=== PATIENT | male | born 1945 | race Caucasian/White ===

== ENCOUNTER 2017-03-02 16:48 | Emergency (ER) | payer OTHER, MEDICARE ==
[~2017-03-02] VITALS: Ht 170.2 cm; Wt 101.5 kg
[~2017-03-02 16:48] MED LIST: ALBU0.08 INH; BUDE1SUS6 PO; CHOL1CAP57 PO; FERR325T5 PO; LORA-741 PO; MULTTAB58 PO; OMEP20TA PO; PREG1CAP28 PO
[2017-03-02 16:54] VITALS: TEMP 36.8; Ht 170.2 cm; Wt 101.5 kg
[2017-03-02] MEDS ORDERED: PREG100C PO (17:28)
[2017-03-02] MEDS ORDERED: PRD/1 PO (17:28)
[2017-03-02] MEDS ORDERED: AZIT500T PO (17:28)
--- NOTE | 2017-03-02 17:41 | EMERGENCY ROOM VISIT NOTE ---
History First contact with patient: 17:03 Chief Complaint: FOOT PAIN Stated Complaint: INFECTED FOOT History of Present Illness The patient is a 72 year old male who presents to the Emergency Room with complaints of right foot pain. The patient has a cyst/ callus like growth over his right foot that was cut on Monday on a fence. The patient later that day noticed some redness and swelling in the foot that has now progressed. He is having 10/10 pain with movement or touching the foot. He is currently being treated for bronchitis by his family doctor and was unable to see him for the infection until Monday. He says the redness has now moved to his ankle and he can barely walk without pain. He denies any fever, chills, nausea, or vomiting. He also has a history of neuropathy in his lower extremities. Review of Systems See HPI for pertinent positives and negatives. A total of ten systems were reviewed and were otherwise negative. 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 Surgical Problems: (1) History of lumbar surgery (2) History of right shoulder replacement (3) History of temporomandibular joint syndrome (4) Hx of transurethral resection of prostate Family History Cancer Heart disease Kidney disease Social History Smoking Status: Current Every Day Smoker Alcohol Use: none Occupation Status: retired Current/Historical Medications Scheduled Arformoterol Tartrate (Brovana), 15 MCG NEB BID Aspirin (Aspir-81), 81 MG PO QAM Budesonide (Inhalation) (Pulmicort Respules 0.5MG/2ML), 2 ML NEB BID Cephalexin (Keflex), 1 CAP PO BID Cholecalciferol (Vitamin D3), 2,000 INTER.UNIT PO DAILY Cyanocobalamin (Cyanocobalamin), 1,000 MCG IM MONTHLY Docusate Sodium (Stool Softener), 100 MG PO BID Ferrous Sulfate (Ferrous Sulfate), 325 MG PO QPM Home O2 Therapy (Oxygen), 3 LITERS NA HS Lisinopril (Lisinopril), 10 MG PO QAM Multiple Vitamins W/ Minerals (Centrum Silver Adult 50+), 1 TAB PO DAILY Omeprazole (Prilosec), 20 MG PO BID Oxybutynin Chloride (Oxybutynin Chloride), 5 MG PO BID Pregabalin (Lyrica), 100 MG PO BID Scheduled PRN Albuterol Sulf (Proventil 0.083% 2.5MG/3ML), 2.5 MG NEB Q4H PRN for SOB/Wheezing Azithromycin (Zithromax), 250 MG PO UD PRN for COPD/Asthma Rescue Kit Ipratropium-Albuterol (Combivent Respimat), 1 PUFF INH QID PRN for Cough/ Wheezing Lorazepam (Lorazepam), 0.5 MG PO TID PRN for Anxiety Prednisone (Deltasone), 20 MG PO UD PRN for COPD/Asthma Rescue Kit Tramadol HCl (Tramadol HCl), 25 MG PO Q6H PRN for Pain Triamcinolone Acet (Aristocort 0.1%), 1 APPLN TOP UD PRN for Itching Valacyclovir Hcl (Valtrex), 500 MG PO BID PRN for Outbreaks Allergies Coded Allergies: Benzocaine (Verified Allergy, Severe, SLOUGHING OF SKIN, 03/03/17) Clindamycin (Verified Allergy, Intermediate, RASH, 03/03/17) Clobetasol (Verified Allergy, Unknown, ITCHING, 03/03/17) Doxycycline (Verified Allergy, Unknown, RASH, 03/03/17) Penicillins (Verified Allergy, Unknown, HIVES, 03/03/17) Phenylethylamine (Verified Allergy, Unknown, ITCHING, 03/03/17) Tea Tree Oil (Verified Allergy, Unknown, ITCHING, 03/03/17) Uncoded Allergies: CLEOCIN (Allergy, Unknown, SHUT KIDNEY DOWN, 05/05/15) Physical Exam Vital Signs Date Time Temp Pulse Resp B/P (MAP) Pulse Ox O2 Delivery O2 Flow Rate FiO2 03/02/17 19:21 71 16 147/92 95 03/02/17 18:39 70 20 134/89 92 03/02/17 16:54 36.8 89 18 126/84 94 Room Air Physical Exam GENERAL: Awake, alert, well-appearing, in no distress HENT: Normocephalic, atraumatic. RESPIRATORY: Clear to auscultation. CARDIAC: Regular rate, normal rhythm. Extremities warm and well perfused. Pulses equal. ABDOMEN: Soft, non-distended. No tenderness to palpation. No rebound or guarding. No masses. RECTAL: Deferred. LOWER EXTREMITIES: Calves are equal size bilaterally and non-tender. No edema. No discoloration. NEURO: Normal sensorium. No sensory or motor deficits noted. SKIN: Right foot avulsion on callus on the dorsum of the foot. Erythema along the dorsum and lateral aspect of the foot extending towards the ankle. Severe tenderness with minimal dorsiflexion, plantarflexion, eversion, or inversion. Swelling of the foot and the ankle in comparison to the right foot. Edematous but no pitting at this time. Warm to touch. Medical Decision & Procedures Laboratory Results 03/02/17 18:05 Red Blood Count 4.09, Mean Corpuscular Volume 99.0, Mean Corpuscular Hemoglobin 32.5, Mean Corpuscular Hemoglobin Concent 32.8, Mean Platelet Volume 9.9, Neutrophils (%) (Auto) 72.4, Lymphocytes (%) (Auto) 14.0, Monocytes (%) (Auto) 12.3, Eosinophils (%) (Auto) 0.6, Basophils (%) (Auto) 0.2, Neutrophils # (Auto ) 6.42, Lymphocytes # (Auto) 1.24, Monocytes # (Auto) 1.09, Eosinophils # (Auto ) 0.05, Basophils # (Auto) 0.02 03/02/17 18:05 Test 03/02/17 18:05 White Blood Count 8.86 K/uL (4.8-10.8) Red Blood Count 4.09 M/uL (4.7-6.1) Hemoglobin 13.3 g/dL (14.0-18.0) Hematocrit 40.5 % (42-52) Mean Corpuscular Volume 99.0 fL (80-100) Mean Corpuscular Hemoglobin 32.5 pg (25-34) Mean Corpuscular Hemoglobin Concent 32.8 g/dl (32-36) Platelet Count 185 K/uL (130-400) Mean Platelet Volume 9.9 fL (7.4-10.4) Neutrophils (%) (Auto) 72.4 % Lymphocytes (%) (Auto) 14.0 % Monocytes (%) (Auto) 12.3 % Eosinophils (%) (Auto) 0.6 % Basophils (%) (Auto) 0.2 % Neutrophils # (Auto) 6.42 K/uL (1.4-6.5) Lymphocytes # (Auto) 1.24 K/uL (1.2-3.4) Monocytes # (Auto) 1.09 K/uL (0.11-0.59) Eosinophils # (Auto) 0.05 K/uL (0-0.5) Basophils # (Auto) 0.02 K/uL (0-0.2) RDW Standard Deviation 49.3 fL (36.4-46.3) RDW Coefficient of Variation 13.7 % (11.5-14.5) Immature Granulocyte % (Auto) 0.5 % Immature Granulocyte # (Auto) 0.04 K/uL (0.00-0.02) Anion Gap 8.0 mmol/L (3-11) Est Creatinine Clear Calc Drug Dose 29.2 ml/min Estimated GFR () 27.3 Estimated GFR (Non- 23.6 BUN/Creatinine Ratio 8.7 (10-20) Calcium Level 8.9 mg/dl (8.5-10.1) Medications Administered Medications (Trade) Dose Ordered Sig/Chata Route Start Time Stop Time Status Last Admin Dose Admin Cefazolin Sodium 2000 mg/Dextrose 60 ml @ 120 mls/hr 1830 IV 03/02/17 18:30 03/02/17 19:38 DC 03/02/17 18:36 120 MLS/HR Cephalexin Monohydrate (Keflex 500MG Home Pack) 1 homepack NOW ONCE PO 03/02/17 19:15 03/02/17 19:16 DC 03/02/17 19:06 1 HOMEPACK Medical Decision Patient is a 72 year old male that presents with cellulitis of the foot Differential Diagnosis is cellulitis, abscess, osteomyelitis, MRSA, fracture, and other etiologies Patient was given IV Ancef in the emergency department and discharged home with Keflex and instructions to follow up with his family doctor Impression Primary Impression: Cellulitis Departure Information Dispostion Home / Self-Care Referrals Jacob Jones MD (PCP) Patient Instructions [facility] Problem Qualifiers Primary Impression: Cellulitis Site of cellulitis of extremity: lower extremity Laterality: unspecified laterality
[2017-03-02 18:15] LABS: BASO % 0.2 %; BASO ABS # 0.02 K/uL (0-0.2); COMPLETE YES; EOS % 0.6 %; HEMATOCRIT 40.5 % (42-52); IG% 0.5 %; LYMPH ABS # 1.24 K/uL (1.2-3.4); MEAN CORPUSCULAR HEMOGLOBIN 32.5 pg (25-34); MEAN CORPUSCULAR HGB CONC 32.8 g/dl (32-36); MEAN PLATELET VOLUME 9.9 fL (7.4-10.4); MONO % 12.3 %; NEUT % 72.4 %; PLATELET COUNT 185 K/uL (130-400); RED BLOOD COUNT 4.09 M/uL (4.7-6.1); WHITE BLOOD COUNT 8.86 K/uL (4.8-10.8)
[2017-03-02] MEDS ORDERED: CEFAZOLIN SOD 2000 MG in DEXTROSE 5% 50ML IV SCH (18:30)
[2017-03-02 18:33] LABS: BUN/CREATININE RATIO 8.7 (10-20); CALCIUM 8.9 mg/dl (8.5-10.1); CREATININE 2.6 mg/dl (0.60-1.40); POTASSIUM 4.3 mmol/L (3.5-5.1)
[2017-03-02] MEDS ORDERED: CEPH-571 PO (18:33)
--- NOTE | 2017-03-02 18:33 | EMERGENCY ROOM VISIT NOTE ---
History Report prepared by Alice: Arelis Alatorre Under the Supervision of: Dr. Dilshad Main D.O. First contact with patient: 17:03 Chief Complaint: FOOT PAIN Stated Complaint: INFECTED FOOT History of Present Illness The patient is a 72 year old male who presents to the Emergency Room with complaints of constant right foot pain beginning 2 days ago. The patient states that he had a foot callus that became infected a few weeks ago. He reports that he was put on antibiotics but after it continued to worsen he had a follow up MRI and was told that it was a cyst. He notes that yesterday he cut his right foot on a wooden fence and tore his skin open in the same area that was affected before. The patient complains of redness and swelling of the foot and foot hotness. He denies any fever and chills. He notes that he Azithromycin for bronchitis that he started taking yesterday and his PCP told him to come in as the Azithromycin would not cover him for a foot infection. He rates his pain as a 10/10 in severity. Source of History: patient Onset: 2 days ago Position: foot (right) Symptom Intensity: 10/10 Quality: other (swelling) Timing: constant Associated Symptoms: No fevers, No chills Note: He complains of redness and swelling to the foot and ankle. Review of Systems See HPI for pertinent positives & negatives. A total of 10 systems reviewed and were otherwise negative. 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 Surgical Problems: (1) History of lumbar surgery (2) History of right shoulder replacement (3) History of temporomandibular joint syndrome (4) Hx of transurethral resection of prostate Family History Cancer Heart disease Kidney disease Social History Smoking Status: Current Every Day Smoker Alcohol Use: none Occupation Status: retired Current/Historical Medications Scheduled Arformoterol Tartrate (Brovana), 15 MCG IN BID Aspirin (Aspir-81), 81 MG PO QAM Azithromycin (Zithromax), Unknown Dose PO DIRECTED Budesonide (Inhalation) (Budesonide), 1 MG PO BID Cephalexin (Keflex), 1 CAP PO QID Cholecalciferol (Vitamin D3), 1,000 UNIT PO QPM Docusate Sodium (Stool Softener), 50 TAB PO BID Ferrous Sulfate (Ferrous Sulfate), 65 MG PO QPM Lisinopril (Lisinopril), 10 MG PO QAM Multiple Vitamin (Multivitamin), 1 TAB PO QPM Omeprazole (Omeprazole), 1 TAB PO BID Oxybutynin Chloride (Oxybutynin Chloride), 5 MG PO BID Oxygen (Oxygen), 3 LITERS NA HS Prednisone (Prednisone), Unknown Dose PO DIRECTED Pregabalin (Lyrica), 100 MG PO BID Scheduled PRN Ipratropium-Albuterol (Combivent Respimat), 1-3 PUFFS INH BID PRN for Wheezing Lorazepam (Ativan), 0.5 MG PO TID PRN for Anxiety Triamcinolone Acet (Aristocort 0.1%), 1 APPLN TOP UD PRN for Itching Valacyclovir Hcl (Valtrex), 500 MG PO BID PRN for Itching Allergies Coded Allergies: Benzocaine (Verified Allergy, Severe, SLOUGHING OF SKIN, 09/08/16) Clindamycin (Verified Allergy, Intermediate, RASH, 09/08/16) Clobetasol (Verified Allergy, Unknown, ITCHING, 09/08/16) Doxycycline (Verified Allergy, Unknown, RASH, 09/08/16) Penicillins (Verified Allergy, Unknown, HIVES, 09/08/16) Phenylethylamine (Verified Allergy, Unknown, ITCHING, 09/08/16) Tea Tree Oil (Verified Allergy, Unknown, ITCHING, 09/08/16) Uncoded Allergies: CLEOCIN (Allergy, Unknown, SHUT KIDNEY DOWN, 05/05/15) Physical Exam Vital Signs Date Time Temp Pulse Resp B/P (MAP) Pulse Ox O2 Delivery O2 Flow Rate FiO2 03/02/17 16:54 36.8 89 18 126/84 94 Room Air Physical Exam CONSTITUTIONAL/VITAL SIGNS: Reviewed / noted above. GENERAL: Non-toxic in appearance. INTEGUMENTARY: Warm, dry, and [place]. HEAD: Normocephalic. EYES: without scleral icterus or trauma. ENT/OROPHARYNX: clear and moist. LYMPHADENOPATHY/NECK: Is supple without lymphadenopathy or meningismus. RESPIRATORY: Lungs clear and equal. CARDIOVASCULAR: Regular rate and rhythm. GI/ABDOMEN: Soft and nontender. No organomegaly or pulsatile mass. No rebound or guarding. Normal bowel sounds. EXTREMITIES: There is scattered erythema in the right foot and ankle primarily on the dorsal, medial, and lateral aspects of the foot. No lymphangitis or red streaks proximal. BACK: No CVA tenderness. NEUROLOGICAL: Intact without focal deficits. PSYCHIATRIC: normal affect. MUSCULOSKELETAL: Normally developed with good muscle tone. Medical Decision & Procedures Laboratory Results 03/02/17 18:05 Red Blood Count 4.09, Mean Corpuscular Volume 99.0, Mean Corpuscular Hemoglobin 32.5, Mean Corpuscular Hemoglobin Concent 32.8, Mean Platelet Volume 9.9, Neutrophils (%) (Auto) 72.4, Lymphocytes (%) (Auto) 14.0, Monocytes (%) (Auto) 12.3, Eosinophils (%) (Auto) 0.6, Basophils (%) (Auto) 0.2, Neutrophils # (Auto ) 6.42, Lymphocytes # (Auto) 1.24, Monocytes # (Auto) 1.09, Eosinophils # (Auto ) 0.05, Basophils # (Auto) 0.02 03/02/17 18:05 Test 03/02/17 18:05 White Blood Count 8.86 K/uL (4.8-10.8) Red Blood Count 4.09 M/uL (4.7-6.1) Hemoglobin 13.3 g/dL (14.0-18.0) Hematocrit 40.5 % (42-52) Mean Corpuscular Volume 99.0 fL (80-100) Mean Corpuscular Hemoglobin 32.5 pg (25-34) Mean Corpuscular Hemoglobin Concent 32.8 g/dl (32-36) Platelet Count 185 K/uL (130-400) Mean Platelet Volume 9.9 fL (7.4-10.4) Neutrophils (%) (Auto) 72.4 % Lymphocytes (%) (Auto) 14.0 % Monocytes (%) (Auto) 12.3 % Eosinophils (%) (Auto) 0.6 % Basophils (%) (Auto) 0.2 % Neutrophils # (Auto) 6.42 K/uL (1.4-6.5) Lymphocytes # (Auto) 1.24 K/uL (1.2-3.4) Monocytes # (Auto) 1.09 K/uL (0.11-0.59) Eosinophils # (Auto) 0.05 K/uL (0-0.5) Basophils # (Auto) 0.02 K/uL (0-0.2) RDW Standard Deviation 49.3 fL (36.4-46.3) RDW Coefficient of Variation 13.7 % (11.5-14.5) Immature Granulocyte % (Auto) 0.5 % Immature Granulocyte # (Auto) 0.04 K/uL (0.00-0.02) Anion Gap 8.0 mmol/L (3-11) Est Creatinine Clear Calc Drug Dose 29.2 ml/min Estimated GFR () 27.3 Estimated GFR (Non- 23.6 BUN/Creatinine Ratio 8.7 (10-20) Calcium Level 8.9 mg/dl (8.5-10.1) Laboratory results as stated above per my review. ED Course 170: Previous medical records were reviewed. The patient was evaluated in room C7. A complete history and physical examination was performed..ex 1830: Cefazolin Sodium 2000mg IV. 1836: On reevaluation, the patient is doing well. I discussed the results and findings with the patient. He verbalized agreement of the treatment plan. The patient was discharged home. Medical Decision Differential diagnosis: Etiologies such as cellulitis, abscess, MRSA infection, DVT, necrotizing fasciitis, dermatitis, drug eruption, as well as others were entertained. This is a 72-year-old male who presents to the ED with a chief complaint of right foot infection. The patient states that he scraped the dorsal aspect of his foot on a wooden fence a couple of days ago. He has developed redness and discomfort as well as some swelling since that time. The patient scraped the foot overlying a cyst that he has had problems within the past. His exam reveals normal vital signs. He is afebrile. There is some diffuse erythema mainly to the dorsal lateral as well as medial aspect of the right foot. This is somewhat scattered and does not completely encompassing the foot. This has been outlined. There is no red streaks up the leg. He has no additional symptoms and is nontoxic in appearance. His CBC was unremarkable. Creatinine is elevated but at baseline. He was treated with IV Ancef. He'll be discharged on Keflex. Close follow-up with the PCP was recommended. He will return for any worsening or new concerns. Impression Primary Impression: Cellulitis of foot, right Scribe Attestation The scribe's documentation has been prepared under my direction and personally reviewed by me in its entirety. I confirm that the note above accurately reflects all work, treatment, procedures, and medical decision making performed by me. Departure Information Dispostion Home / Self-Care Prescriptions Cephalexin (KEFLEX) 500 Mg Cap 1 CAP PO QID for 10 Days, #40 CAP Prov: Dilshad Main D.O. 03/02/17 Referrals Jacob Jones MD (PCP) Forms HOME CARE DOCUMENTATION FORM, IMPORTANT VISIT INFORMATION Patient Instructions Cellulitis Dc, My [facility] Additional Instructions Keflex as prescribed. Follow-up with your doctor for recheck in one to 5 days. Return for fevers, significant increase in redness, red streak traveling up the leg, vomiting or other concerns.
[2017-03-02] MEDS ORDERED: CEPHALEXIN 500MG HOME PACK 1 EA BTL PO ONE (19:15)
[2017-03-02 19:21] VITALS: BP 147/92; PULSE 71; O2SAT 95
[2017-03-03] MEDS ORDERED: CEFAZOLIN IV 2,000 MG/60 ML D5W IV ONE ×2 (06:00→18:30)
[2017-03-03] MEDS ORDERED: CYAN10005 PO (21:50)
[2017-03-06] MEDS ORDERED: CEPH-571 PO ×2 (13:20→13:35)
[2017-03-06] MEDS ORDERED: ULT50X PO (13:20)
[2017-05-31] MEDS ORDERED: TRMCR130WC TOP (10:43)
[2017-05-31] MEDS ORDERED: IPRA1AER2 INH (10:53)
[2017-05-31] MEDS ORDERED: ARFO15NE NEB (10:53)
[2017-05-31] MEDS ORDERED: ASPI-232 PO (10:53)
[2017-05-31] MEDS ORDERED: OXGN (14:56)
[2017-05-31] MEDS ORDERED: VALA1TAB2 PO (16:00)
[2017-05-31] MEDS ORDERED: DTR/5 PO (16:00)
[2017-05-31] MEDS ORDERED: MULT-506 PO (16:00)
[2017-05-31] MEDS ORDERED: PREG100C PO (16:00)
[2017-05-31] MEDS ORDERED: SENNTAB13 PO (16:02)
[2017-05-31] MEDS ORDERED: SKINCRE34 TOP (16:02)
[2017-05-31] MEDS ORDERED: HYDR25SU20 PR (16:02)
[2017-05-31] MEDS ORDERED: FERR325T5 PO (17:28)
[2017-06-12] MEDS ORDERED: PANT20TA2 PO (16:22)
[2017-06-15] MEDS ORDERED: NRV5 PO (11:25)
[2017-06-15] MEDS ORDERED: IMDSR60 PO (11:25)
[2017-06-15] MEDS ORDERED: AMLO2.5T PO (11:36)
[2017-06-25] MEDS ORDERED: ALLO300T2 PO (07:00)
[2017-06-25] MEDS ORDERED: DOCU100C PO (07:00)
[2017-06-25] MEDS ORDERED: ASPCH81X PO (07:03)
[2017-06-25] MEDS ORDERED: MICO12CR TOP (07:03)
[2017-06-26] MEDS ORDERED: AZIT-57 PO (13:25)
== END 2017-03-02 19:15 | disposition home or self-care (01) ==
LOC: C.EDB 16:49 → C.EDC 19:15
DX: L03.115 Cellulitis of right lower limb (principal); G57.93 Unspecified mononeuropathy of bilateral lower limbs; J44.9 Chronic obstructive pulmonary disease, unspecified; I12.9 Hypertensive chronic kidney disease with stage 1 through stage 4 chronic kidney disease, or unspecified chronic kidney disease; N18.3 Chronic kidney disease, stage 3 (moderate); R79.89 Other specified abnormal findings of blood chemistry; I25.10 Atherosclerotic heart disease of native coronary artery without angina pectoris; K57.30 Diverticulosis of large intestine without perforation or abscess without bleeding; K21.9 Gastro-esophageal reflux disease without esophagitis; B00.9 Herpesviral infection, unspecified; F17.200 Nicotine dependence, unspecified, uncomplicated; Z95.828 Presence of other vascular implants and grafts; Z96.649 Presence of unspecified artificial hip joint; Z96.611 Presence of right artificial shoulder joint; Z79.82 Long term (current) use of aspirin

== ENCOUNTER 2017-03-03 18:20 | Emergency (ER) | payer OTHER, MEDICARE ==
[~2017-03-03] VITALS: Ht 177.8 cm; Wt 100.0 kg
[~2017-03-03 18:20] MED LIST changes: -ALBU0.08 INH; +AZIT500T PO; +CEPH-571 PO; -FERR325T5 PO; +PRD/1 PO; +PREG100C PO; -PREG1CAP28 PO
[2017-03-03 18:22] VITALS: Ht 177.8 cm; Wt 100.0 kg
[2017-03-03] MEDS ORDERED: CEFTRIAXONE SOD INJ 1 GM ADDVIAL IV STA (18:53)
[2017-03-03] MEDS ORDERED: VANCOMYCIN INJ 2,000 MG in SODIUM CHLORIDE 0.9% 500ML 500 ML IV STA (18:53)
[2017-03-03] MEDS ORDERED: SODIUM CHLORIDE 0.9% 1000ML 1,000 ML IV STA (18:53)
[2017-03-03 19:56] LABS: BASO % 0.2 %; BASO ABS # 0.02 K/uL (0-0.2); COMPLETE YES; EOS % 0.5 %; HEMATOCRIT 39.4 % (42-52); IG% 0.4 %; LYMPH % 10.3 %; LYMPH ABS # 0.97 K/uL (1.2-3.4); MEAN CELL VOLUME 99.7 fL (80-100); MEAN CORPUSCULAR HEMOGLOBIN 34.2 pg (25-34); MEAN CORPUSCULAR HGB CONC 34.3 g/dl (32-36); MEAN PLATELET VOLUME 10.2 fL (7.4-10.4); MONO % 15.1 %; NEUT % 73.5 %; PLATELET COUNT 187 K/uL (130-400); RED BLOOD COUNT 3.95 M/uL (4.7-6.1); WHITE BLOOD COUNT 9.41 K/uL (4.8-10.8)
[2017-03-03 20:23] LABS: CALCIUM 8.6 mg/dl (8.5-10.1); CREATININE 2.6 mg/dl (0.60-1.40); POTASSIUM 4.4 mmol/L (3.5-5.1)
--- NOTE | 2017-03-03 20:25 | DIAGNOSTIC IMAGING REPORT ---
RIGHT FOOT 3 VIEWS CLINICAL HISTORY: Right foot swelling. Cellulitis. FINDINGS: 3 views of the right foot are obtained. No prior studies are available for comparison at the time of dictation. The skeletal structures are osteopenic. No fracture is seen. No bony erosion or periostitis is identified. Arthritic change with bony sclerosis and spurring is seen at the first metatarsophalangeal joint. The joint spaces of the foot are otherwise maintained. Degenerative spurring is seen along the dorsal aspect of the tarsal bones. Soft tissue edema is present throughout the foot and around the ankle. No subcutaneous gas or radiodense foreign body is seen. IMPRESSION: 1. Diffuse soft tissue edema is identified and consistent with the reported clinical history of cellulitis. 2. No acute bony abnormality is seen. 3. Osteopenia and mild arthritic change as above. Electronically signed by: Braden Rucker M.D. 03/03/2017 8:24 PM Dictated Date/Time: 03/03/2017 8:22 PM
[2017-03-03] MEDS ORDERED: CYAN10005 PO (21:50)
[2017-03-04 00:09] VITALS: BP 142/94; PULSE 70; TEMP 36.8; O2SAT 94
--- NOTE | 2017-03-04 00:45 | EMERGENCY ROOM VISIT NOTE ---
History Report prepared by Alice: Alva Berumen Under the Supervision of: Dr. Moody Zavaleta M.D. First contact with patient: 18:32 Chief Complaint: WOUND INFECTION Stated Complaint: INFECTED RT FOOT History of Present Illness The patient is a 72 year old male who presents to the Emergency Room with complaints of right foot pain starting yesterday and worsening today. The patient had a right foot callous. He hit his foot yesterday and cracked the callous. He was evaluated at the Emergency Room yesterday where he received IV antibiotics. He has been taking Keflex at home as prescribed without relief. His pain and symptoms worsened today. Today, he started having right lower extremity swelling and worsening erythema. He also started having blood, yellowish drainage from the callous. He has worsening pain with movement and palpation. He denies any history of diabetes. He has a history of neuropathy. He has also been taking Z-pack recently as prescribed by his PCP for lung issues. Pt denies LOC, headache, fevers, chills, diaphoresis, visual changes, neck pain , chest pain, breathing difficulties, nausea, vomiting, abdominal pain, back pain, melena, hematochezia, urinary symptoms, numbness, weakness, lymphadenopathy, rash, or other complaints. Source of History: patient Onset: yesterday Position: foot (right) Quality: other (callous with drainage) Timing: worsening Modifying Factors (Worsening): movement, other (palpation) Review of Systems See HPI for pertinent positives and negatives. A total of ten systems were reviewed and were otherwise negative. 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 Surgical Problems: (1) History of lumbar surgery (2) History of right shoulder replacement (3) History of temporomandibular joint syndrome (4) Hx of transurethral resection of prostate Family History Cancer Heart disease Kidney disease Social History Smoking Status: Current Every Day Smoker Alcohol Use: none Marital Status: Occupation Status: retired Current/Historical Medications Scheduled Albuterol Sulf (Proventil 0.083% 2.5MG/3ML), 2.5 MG INH DAILY Arformoterol Tartrate (Brovana), 15 MCG IN BID Aspirin (Aspir-81), 81 MG PO QAM Azithromycin (Zithromax), Unknown Dose PO DIRECTED Budesonide (Inhalation) (Budesonide), 1 MG PO BID Cephalexin (Keflex), 1 CAP PO QID Cholecalciferol (Vitamin D3), 1 CAP PO DAILY Cyanocobalamin (Cyanocobalamin), 3 ML INJ MONTHLY Docusate Sodium (Stool Softener), 1 TAB PO BID Ferrous Sulfate (Ferrous Sulfate), 65 MG PO QPM Lisinopril (Lisinopril), 10 MG PO QAM Multiple Vitamin (Multivitamin), 1 TAB PO QPM Omeprazole (Omeprazole), 1 TAB PO BID Oxybutynin Chloride (Oxybutynin Chloride), 5 MG PO BID Oxygen (Oxygen), 3 LITERS NA HS Prednisone (Prednisone), Unknown Dose PO DIRECTED Pregabalin (Lyrica), 100 MG PO BID Scheduled PRN Ipratropium-Albuterol (Combivent Respimat), 1-3 PUFFS INH BID PRN for Wheezing Lorazepam (Ativan), 0.5 MG PO TID PRN for Anxiety Triamcinolone Acet (Aristocort 0.1%), 1 APPLN TOP UD PRN for Itching Valacyclovir Hcl (Valtrex), 500 MG PO BID PRN for Itching Allergies Coded Allergies: Benzocaine (Verified Allergy, Severe, SLOUGHING OF SKIN, 03/03/17) Clindamycin (Verified Allergy, Intermediate, RASH, 03/03/17) Clobetasol (Verified Allergy, Unknown, ITCHING, 03/03/17) Doxycycline (Verified Allergy, Unknown, RASH, 03/03/17) Penicillins (Verified Allergy, Unknown, HIVES, 03/03/17) Phenylethylamine (Verified Allergy, Unknown, ITCHING, 03/03/17) Tea Tree Oil (Verified Allergy, Unknown, ITCHING, 03/03/17) Uncoded Allergies: CLEOCIN (Allergy, Unknown, SHUT KIDNEY DOWN, 05/05/15) Physical Exam Vital Signs Date Time Temp Pulse Resp B/P (MAP) Pulse Ox O2 Delivery O2 Flow Rate FiO2 03/04/17 00:09 36.8 70 142/94 94 03/03/17 22:17 72 134/89 94 Room Air 03/03/17 20:16 37.0 77 126/76 95 Room Air 03/03/17 18:22 37.1 96 22 117/76 91 Room Air Physical Exam GENERAL: Awake, alert, well-appearing, in no distress HENT: Normocephalic, atraumatic. Oropharynx unremarkable. EYES: Normal conjunctiva. Sclera non-icteric. NECK: Supple. No nuchal rigidity. FROM. No JVD. RESPIRATORY: Clear to auscultation. CARDIAC: Regular rate, normal rhythm. Extremities warm and well perfused. Pulses equal. ABDOMEN: Soft, non-distended. No tenderness to palpation. No rebound or guarding. No masses. RECTAL: Deferred. MUSCULOSKELETAL: Chest examination reveals no tenderness. The back is symmetrical on inspection without obvious abnormality. There is no CVA tenderness to palpation. No joint edema. LOWER EXTREMITIES: Calves are equal size bilaterally and non-tender. No edema. No discoloration. Callous on the right foot at the dorsal aspect, with a small superficial wound present, no drainage. Warmth, erythema, and significant tenderness of the foot. NEURO: Normal sensorium. No sensory or motor deficits noted. SKIN: No rash or jaundice noted. Medical Decision & Procedures ER Provider Diagnostic Interpretation: X-ray: Per my interpretation, radiologist review. RIGHT FOOT 3 VIEWS CLINICAL HISTORY: Right foot swelling. Cellulitis. FINDINGS: 3 views of the right foot are obtained. No prior studies are available for comparison at the time of dictation. The skeletal structures are osteopenic. No fracture is seen. No bony erosion or periostitis is identified. Arthritic change with bony sclerosis and spurring is seen at the first metatarsophalangeal joint. The joint spaces of the foot are otherwise maintained. Degenerative spurring is seen along the dorsal aspect of the tarsal bones. Soft tissue edema is present throughout the foot and around the ankle. No subcutaneous gas or radiodense foreign body is seen. IMPRESSION: 1. Diffuse soft tissue edema is identified and consistent with the reported clinical history of cellulitis. 2. No acute bony abnormality is seen. 3. Osteopenia and mild arthritic change as above. Electronically signed by: Braden Rucker M.D. 03/03/2017 8:24 PM Dictated Date/Time: 03/03/2017 8:22 PM Laboratory Results 03/03/17 19:25 Red Blood Count 3.95, Mean Corpuscular Volume 99.7, Mean Corpuscular Hemoglobin 34.2, Mean Corpuscular Hemoglobin Concent 34.3, Mean Platelet Volume 10.2, Neutrophils (%) (Auto) 73.5, Lymphocytes (%) (Auto) 10.3, Monocytes (%) (Auto) 15.1, Eosinophils (%) (Auto) 0.5, Basophils (%) (Auto) 0.2, Neutrophils # (Auto ) 6.91, Lymphocytes # (Auto) 0.97, Monocytes # (Auto) 1.42, Eosinophils # (Auto ) 0.05, Basophils # (Auto) 0.02 03/03/17 19:25 Test 03/03/17 19:25 03/03/17 19:45 White Blood Count 9.41 K/uL (4.8-10.8) Red Blood Count 3.95 M/uL (4.7-6.1) Hemoglobin 13.5 g/dL (14.0-18.0) Hematocrit 39.4 % (42-52) Mean Corpuscular Volume 99.7 fL (80-100) Mean Corpuscular Hemoglobin 34.2 pg (25-34) Mean Corpuscular Hemoglobin Concent 34.3 g/dl (32-36) Platelet Count 187 K/uL (130-400) Mean Platelet Volume 10.2 fL (7.4-10.4) Neutrophils (%) (Auto) 73.5 % Lymphocytes (%) (Auto) 10.3 % Monocytes (%) (Auto) 15.1 % Eosinophils (%) (Auto) 0.5 % Basophils (%) (Auto) 0.2 % Neutrophils # (Auto) 6.91 K/uL (1.4-6.5) Lymphocytes # (Auto) 0.97 K/uL (1.2-3.4) Monocytes # (Auto) 1.42 K/uL (0.11-0.59) Eosinophils # (Auto) 0.05 K/uL (0-0.5) Basophils # (Auto) 0.02 K/uL (0-0.2) RDW Standard Deviation 50.2 fL (36.4-46.3) RDW Coefficient of Variation 13.7 % (11.5-14.5) Immature Granulocyte % (Auto) 0.4 % Immature Granulocyte # (Auto) 0.04 K/uL (0.00-0.02) Anion Gap 8.0 mmol/L (3-11) Est Creatinine Clear Calc Drug Dose 30.4 ml/min Estimated GFR () 27.3 Estimated GFR (Non- 23.6 BUN/Creatinine Ratio 10.0 (10-20) Calcium Level 8.6 mg/dl (8.5-10.1) Bedside Lactic Acid Venous 0.98 mmol/L (0.90-1.70) Laboratory results reviewed by me Medications Administered Medications (Trade) Dose Ordered Sig/Chata Route Start Time Stop Time Status Last Admin Dose Admin Sodium Chloride 1,000 ml @ 200 mls/hr Q5H STAT IV 03/03/17 18:53 03/03/17 23:52 DC 03/03/17 19:52 200 MLS/HR Vancomycin HCl 2000 mg/Sodium Chloride 540 ml @ 200 mls/hr ONE STAT IV 03/03/17 18:53 03/03/17 21:34 DC 03/03/17 19:52 200 MLS/HR Ceftriaxone Sodium (Rocephin Inj) 1 gm NOW STAT IV 03/03/17 18:53 03/03/17 18:58 DC 03/03/17 20:00 1 GM ED Course 1832: The patient was evaluated in room B03B. A complete history and physical exam was performed. Blood pressure screening: Patient was found to have normal blood pressure on screening and does not require follow-up. Medication Reconciliation: I attest that I have personally reviewed the patient' s current medication list 1853:Rocephin Inj 1 gm IV, Vancomycin HCl 2000 mg/Sodium Chloride 540 ml @ 200 mls/hr IV, Sodium Chloride 1000 ml @ 200 mls/hr IV 2027: I reevaluated the patient who is doing well. 2199: I reevaluated the patient who is resting comfortably. []: I reevaluated the patient. Discussed results and discharge instructions: [] verbalized understanding and agreement. The patient is ready for discharge. Medical Decision Prior records reviewed and summarized as above. Triage Nursing notes reviewed and agree them. The patient's history was concerning for swelling and redness of the skin. Differential diagnosis: Etiologies such as cellulitis, DVT, necrotizing fasciitis, abscess, MRSA infection, dermatitis, drug eruption, as well as others were entertained.. Physical examination: The physical examination was consistent with cellulitis ER treatment provided: Patient declined analgesia IV hydration with normal saline IV vancomycin IV Rocephin On reassessment the patient felt better. The redness had decreased slightly. Edema was down elevation. Diagnostics interpreted by me: The labs revealed an unremarkable CBC. Mild anemia. Stable creatinine at 2.6. Imaging studies: Deferred This appears to be isolated cellulitis. The patient is doing well. He will continue his Keflex but will return to the Emergency Room in 24 hours for recheck. The patient preferred to try to go home and given the above dosing and improvement I believe this is reasonable. If he has any problems she will come back sooner. By the evaluation outlined above emergent etiologies such as abscess, necrotizing fasciitis, DVT, as well as others were deemed relatively unlikely. The patient was informed about the findings as listed above. All questions were answered and he was pleased with the treatment. Return instructions were outlined and the patient was discharged in stable condition. Outpatient prescription management: Continue Keflex Impression Primary Impression: Cellulitis of right foot Scribe Attestation The scribe's documentation has been prepared under my direction and personally reviewed by me in its entirety. I confirm that the note above accurately reflects all work, treatment, procedures, and medical decision making performed by me. Departure Information Dispostion Home / Self-Care Referrals Jacob Jones MD (PCP) Patient Instructions My [facility] Additional Instructions CELLULITIS INSTRUCTIONS: (As previously prescribed ) Cephalexin(Keflex) 500mg: Take one pill four times daily for 10 days for your skin infection. All antibiotics can cause diarrhea. If this occurs and you feel worse or it does not resolve in 1-2 days follow up with your doctor or return to the Emergency Department as this could be signs of serious underlying problems. Any medication can cause an allergic reaction, stop the pills immediately and return to the ER for rash, hives, breathing difficulties, or swelling. Acetaminophen(Tylenol) may be used for fever or pain. Use 1000mg every six hours as needed. Avoid using more than 4000mg in a 24 hour period. Warm compresses to the affected area 4 times daily for 15-20 minutes. Rest and drink plenty of fluids. Continue current medications. Follow up with the Emergency Room tomorrow at 7 PM for a recheck of the current condition. Return to the ER sooner for severe pain, persistent fevers, spreading redness, or any worsening of your condition.
[2017-03-04] MEDS ORDERED: LISI-461 PO (10:43)
[2017-03-04] MEDS ORDERED: VALA500T39 PO (10:53)
[2017-03-04] MEDS ORDERED: DOCU100T7 PO (14:56)
[2017-03-04] MEDS ORDERED: DTR5 PO (17:28)
[2017-03-04] MEDS ORDERED: LYR100 PO (21:42)
[2017-03-04] MEDS ORDERED: AZIT250T PO (21:42)
[2017-03-04] MEDS ORDERED: MULT-845 PO (21:53)
[2017-03-06] MEDS ORDERED: ULT50X PO (13:20)
[2017-03-06] MEDS ORDERED: CEPH-571 PO ×2 (13:20→13:35)
[2017-05-31] MEDS ORDERED: TRMCR130WC TOP (10:43)
[2017-05-31] MEDS ORDERED: ASPI-232 PO (10:53)
[2017-05-31] MEDS ORDERED: IPRA1AER2 INH (10:53)
[2017-05-31] MEDS ORDERED: ARFO15NE NEB (10:53)
[2017-05-31] MEDS ORDERED: OXGN (14:56)
[2017-05-31] MEDS ORDERED: MULT-506 PO (16:00)
[2017-05-31] MEDS ORDERED: PREG100C PO (16:00)
[2017-05-31] MEDS ORDERED: VALA1TAB2 PO (16:00)
[2017-05-31] MEDS ORDERED: DTR/5 PO (16:00)
[2017-05-31] MEDS ORDERED: SKINCRE34 TOP (16:02)
[2017-05-31] MEDS ORDERED: SENNTAB13 PO (16:02)
[2017-05-31] MEDS ORDERED: HYDR25SU20 PR (16:02)
[2017-05-31] MEDS ORDERED: FERR325T5 PO (17:28)
[2017-06-12] MEDS ORDERED: PANT20TA2 PO (16:22)
[2017-06-15] MEDS ORDERED: IMDSR60 PO (11:25)
[2017-06-15] MEDS ORDERED: NRV5 PO (11:25)
[2017-06-15] MEDS ORDERED: AMLO2.5T PO (11:36)
[2017-06-25] MEDS ORDERED: DOCU100C PO (07:00)
[2017-06-25] MEDS ORDERED: ALLO300T2 PO (07:00)
[2017-06-25] MEDS ORDERED: MICO12CR TOP (07:03)
[2017-06-25] MEDS ORDERED: ASPCH81X PO (07:03)
[2017-06-26] MEDS ORDERED: AZIT-57 PO (13:25)
== END 2017-03-04 00:10 | disposition home or self-care (01) ==
LOC: C.EDB 18:21
DX: L03.115 Cellulitis of right lower limb (principal); I10 Essential (primary) hypertension; N18.3 Chronic kidney disease, stage 3 (moderate); I25.10 Atherosclerotic heart disease of native coronary artery without angina pectoris; K57.90 Diverticulosis of intestine, part unspecified, without perforation or abscess without bleeding; K21.9 Gastro-esophageal reflux disease without esophagitis; Z82.49 Family history of ischemic heart disease and other diseases of the circulatory system; F17.200 Nicotine dependence, unspecified, uncomplicated; Z79.82 Long term (current) use of aspirin

== ENCOUNTER 2017-03-04 20:51 | Inpatient (IN) | payer OTHER, MEDICARE ==
[~2017-03-04] VITALS: Ht 170.2 cm; Wt 100.0 kg
[~2017-03-04 20:51] MED LIST changes: -CHOL1CAP57 PO; +DOCU100T7 PO; +DTR5 PO; +LISI-461 PO; +VALA500T39 PO
[2017-03-04] MEDS ORDERED: VANCOMYCIN INJ 2,000 MG in SODIUM CHLORIDE 0.9% 500ML 500 ML IV STA (21:10)
[2017-03-04] MEDS ORDERED: CEFTRIAXONE SOD INJ 1 GM ADDVIAL IV STA (21:10)
[2017-03-04 21:37] LABS: BASO % 0.1 %; BASO ABS # 0.01 K/uL (0-0.2); COMPLETE YES; EOS % 1.2 %; HEMATOCRIT 37.2 % (42-52); IG% 0.6 %; LYMPH % 18.2 %; LYMPH ABS # 1.26 K/uL (1.2-3.4); MEAN CELL VOLUME 100.3 fL (80-100); MEAN CORPUSCULAR HEMOGLOBIN 33.4 pg (25-34); MEAN CORPUSCULAR HGB CONC 33.3 g/dl (32-36); MONO % 13.4 %; NEUT % 66.5 %; PLATELET COUNT 189 K/uL (130-400); RED BLOOD COUNT 3.71 M/uL (4.7-6.1); WHITE BLOOD COUNT 6.93 K/uL (4.8-10.8)
[2017-03-04] MEDS ORDERED: AZIT250T PO (21:42)
[2017-03-04] MEDS ORDERED: LYR100 PO (21:42)
[2017-03-04 21:52] LABS: CREATININE 2.1 mg/dl (0.60-1.40); POTASSIUM 4.1 mmol/L (3.5-5.1)
[2017-03-04] MEDS ORDERED: MULT-845 PO (21:53)
[2017-03-04 22:13] LABS: CALCIUM 8.7 mg/dl (8.5-10.1)
[2017-03-04] MEDS ORDERED: ALBUT/IPRATROP 3MG/0.5MG NEB 3 ML VIAL INH PRN (22:30)
[2017-03-04] MEDS ORDERED: LORAZEPAM 0.5 MG TAB PO PRN (22:30)
[2017-03-04] MEDS ORDERED: HYDROmorphone INJ 0.5 MG/0.5 ML SYR IV PRN (22:30)
[2017-03-04] MEDS ORDERED: ACETAMINOPHEN 325 MG TAB PO PRN (22:30)
[2017-03-04] MEDS ORDERED: ONDANSETRON INJ 2 MG/ML 2 ML VIAL IV PRN (22:30)
[2017-03-04] MEDS ORDERED: SODIUM CHLORIDE 0.9% 1000ML 1,000 ML IV ONE (22:30)
[2017-03-04] MEDS ORDERED: TRAMADOL HCL 50 MG TAB PO PRN (22:30)
[2017-03-04 23:22] VITALS: BP 145/89; PULSE 66; TEMP 36.5; O2SAT 96
[2017-03-04 23:30] VITALS: Ht 170.2 cm; Wt 100.0 kg
[2017-03-04 23:37] LABS: INR 1.1 (0.9-1.1); PROTHROMBIN TIME (PATIENT) 11.5 SECONDS (9.0-12.0)
[2017-03-05] VITALS (7 sets, daily range): BP systolic 120–169; BP diastolic 77–92; PULSE 59–74; TEMP 36.6–36.8; O2SAT 94–96
--- NOTE | 2017-03-05 01:26 | EMERGENCY ROOM VISIT NOTE ---
History Report prepared by Alice: Lakeisha Larose Under the Supervision of: Dr. Moody Zavaleta M.D. First contact with patient: 20:57 Chief Complaint: WOUND RECHECK Stated Complaint: RECHECK FOR CELLULITIS OF RT FOOT Nursing Triage Summary: pt here for a recheck of cellulitis of the right foot, states it has not got any better History of Present Illness The patient is a 72 year old male who presents to the Emergency Room for a wound recheck. The patient had a right foot callus. He hit his foot 2 days ago and cracked the callus and developed worsening pain after this. The patient notes redness and swelling to his right foot and ankle. He has pain that is worse with movement and palpation. He rates his pain as a 5/10 in severity. Last night the patient was in the ED for evaluation of cellulitis, and he received Vancomycin and Rocephin. He states that his symptoms have improved slightly today, but he is still uncomfortable. The redness has gone down and it is less painful. He has been taking Keflex as prescribed. He is still feeling more fatigued than usual. Pt denies fevers, chills, nausea, vomiting, abdominal pain, diarrhea, and any other complaints. He does not have any new numbness or tingling in his foot. Source of History: patient Onset: 2 days ago Position: foot (right) Symptom Intensity: 5/10 Quality: other (redness/swelling) Timing: constant Modifying Factors (Relieving): other (antibiotics) Associated Symptoms: + fatigue Review of Systems See HPI for pertinent positives and negatives. A total of ten systems were reviewed and were otherwise negative. 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 Surgical Problems: (1) History of lumbar surgery (2) History of right shoulder replacement (3) History of temporomandibular joint syndrome (4) Hx of transurethral resection of prostate Family History Cancer Heart disease Kidney disease Social History Smoking Status: Former Smoker Alcohol Use: none Marital Status: Occupation Status: retired Current/Historical Medications Scheduled Arformoterol Tartrate (Brovana), 15 MCG NEB BID Aspirin (Aspir-81), 81 MG PO QAM Budesonide (Inhalation) (Pulmicort Respules 0.5MG/2ML), 2 ML NEB BID Cephalexin (Keflex), 1 CAP PO QID Cholecalciferol (Vitamin D3), 2,000 INTER.UNIT PO DAILY Cyanocobalamin (Cyanocobalamin), 1,000 MCG IM MONTHLY Docusate Sodium (Stool Softener), 100 MG PO BID Ferrous Sulfate (Ferrous Sulfate), 325 MG PO QPM Lisinopril (Lisinopril), 10 MG PO QAM Multiple Vitamins W/ Minerals (Centrum Silver Adult 50+), 1 TAB PO DAILY Omeprazole (Prilosec), 20 MG PO BID Oxybutynin Chloride (Oxybutynin Chloride), 5 MG PO BID Oxygen (Oxygen), 3 LITERS NA HS Pregabalin (Lyrica), 100 MG PO BID Scheduled PRN Albuterol Sulf (Proventil 0.083% 2.5MG/3ML), 2.5 MG NEB Q4H PRN for SOB/Wheezing Azithromycin (Zithromax), 250 MG PO UD PRN for COPD/Asthma Rescue Kit Ipratropium-Albuterol (Combivent Respimat), 1 PUFF INH QID PRN for Cough/ Wheezing Lorazepam (Lorazepam), 0.5 MG PO TID PRN for Anxiety Prednisone (Deltasone), 20 MG PO UD PRN for COPD/Asthma Rescue Kit Triamcinolone Acet (Aristocort 0.1%), 1 APPLN TOP UD PRN for Itching Valacyclovir Hcl (Valtrex), 500 MG PO BID PRN for Outbreaks Allergies Coded Allergies: Benzocaine (Verified Allergy, Severe, SLOUGHING OF SKIN, 03/03/17) Clindamycin (Verified Allergy, Intermediate, RASH, 03/03/17) Clobetasol (Verified Allergy, Unknown, ITCHING, 03/03/17) Doxycycline (Verified Allergy, Unknown, RASH, 03/03/17) Penicillins (Verified Allergy, Unknown, HIVES, 03/03/17) Phenylethylamine (Verified Allergy, Unknown, ITCHING, 03/03/17) Tea Tree Oil (Verified Allergy, Unknown, ITCHING, 03/03/17) Uncoded Allergies: CLEOCIN (Allergy, Unknown, SHUT KIDNEY DOWN, 05/05/15) Physical Exam Vital Signs Date Time Temp Pulse Resp B/P (MAP) Pulse Ox O2 Delivery O2 Flow Rate FiO2 03/04/17 20:55 36.7 75 18 112/76 95 Room Air Physical Exam GENERAL: Awake, alert, well-appearing, in no distress HENT: Normocephalic, atraumatic. Oropharynx unremarkable. EYES: Normal conjunctiva. Sclera non-icteric. NECK: Supple. No nuchal rigidity. FROM. No JVD. RESPIRATORY: Clear to auscultation. CARDIAC: Regular rate, normal rhythm. Extremities warm and well perfused. Pulses equal. ABDOMEN: Soft, non-distended. No tenderness to palpation. No rebound or guarding. No masses. MUSCULOSKELETAL: Chest examination reveals no tenderness. The back is symmetrical on inspection without obvious abnormality. There is no CVA tenderness to palpation. No joint edema. LOWER EXTREMITIES: Swelling, tenderness, warmth, and redness to the right foot. Calves are equal size bilaterally and non-tender. NEURO: Normal sensorium. No sensory or motor deficits noted. SKIN: No rash or jaundice noted. Medical Decision & Procedures Laboratory Results 03/04/17 21:30 Red Blood Count 3.71, Mean Corpuscular Volume 100.3, Mean Corpuscular Hemoglobin 33.4, Mean Corpuscular Hemoglobin Concent 33.3, Mean Platelet Volume 10.0, Neutrophils (%) (Auto) 66.5, Lymphocytes (%) (Auto) 18.2, Monocytes (%) ( Auto) 13.4, Eosinophils (%) (Auto) 1.2, Basophils (%) (Auto) 0.1, Neutrophils # (Auto) 4.61, Lymphocytes # (Auto) 1.26, Monocytes # (Auto) 0.93, Eosinophils # ( Auto) 0.08, Basophils # (Auto) 0.01 03/04/17 21:30 Test 03/04/17 21:30 White Blood Count 6.93 K/uL (4.8-10.8) Red Blood Count 3.71 M/uL (4.7-6.1) Hemoglobin 12.4 g/dL (14.0-18.0) Hematocrit 37.2 % (42-52) Mean Corpuscular Volume 100.3 fL (80-100) Mean Corpuscular Hemoglobin 33.4 pg (25-34) Mean Corpuscular Hemoglobin Concent 33.3 g/dl (32-36) Platelet Count 189 K/uL (130-400) Mean Platelet Volume 10.0 fL (7.4-10.4) Neutrophils (%) (Auto) 66.5 % Lymphocytes (%) (Auto) 18.2 % Monocytes (%) (Auto) 13.4 % Eosinophils (%) (Auto) 1.2 % Basophils (%) (Auto) 0.1 % Neutrophils # (Auto) 4.61 K/uL (1.4-6.5) Lymphocytes # (Auto) 1.26 K/uL (1.2-3.4) Monocytes # (Auto) 0.93 K/uL (0.11-0.59) Eosinophils # (Auto) 0.08 K/uL (0-0.5) Basophils # (Auto) 0.01 K/uL (0-0.2) RDW Standard Deviation 49.9 fL (36.4-46.3) RDW Coefficient of Variation 13.6 % (11.5-14.5) Immature Granulocyte % (Auto) 0.6 % Immature Granulocyte # (Auto) 0.04 K/uL (0.00-0.02) Prothrombin Time 11.5 SECONDS (9.0-12.0) Prothromb Time International Ratio 1.1 (0.9-1.1) Anion Gap 10.0 mmol/L (3-11) Est Creatinine Clear Calc Drug Dose 35.8 ml/min Estimated GFR () 35.4 Estimated GFR (Non- 30.5 BUN/Creatinine Ratio 11.0 (10-20) Calcium Level 8.7 mg/dl (8.5-10.1) Total Bilirubin 0.9 mg/dl (0.2-1) Direct Bilirubin 0.3 mg/dl (0-0.2) Aspartate Amino Transf (AST/SGOT) 20 U/L (15-37) Alanine Aminotransferase (ALT/SGPT) 20 U/L (12-78) Alkaline Phosphatase 81 U/L (45-117) Total Protein 7.5 gm/dl (6.4-8.2) Albumin 3.4 gm/dl (3.4-5.0) Laboratory results reviewed by me. Medications Administered Medications (Trade) Dose Ordered Sig/Chata Route Start Time Stop Time Status Last Admin Dose Admin Ceftriaxone Sodium (Rocephin Inj) 1 gm NOW STAT IV 03/04/17 21:10 03/04/17 21:15 DC 03/04/17 21:33 1 GM Vancomycin HCl 2000 mg/Sodium Chloride 540 ml @ 200 mls/hr ONE STAT IV 03/04/17 21:10 03/04/17 23:51 DC 03/04/17 21:43 200 MLS/HR ED Course 2108: The patient was evaluated in room C11B. A complete history and physical exam was performed. At this time I discussed the results and treatment plan with the patient. I answered all pertaining questions that he had. He expressed understanding and verbalized agreement. 2109: Vancomycin HCl 2000 mg/Sodium Chloride 540 ml @ 200 mls/hr IV, Rocephin 1 gm IV 2125: I spoke with Dr. Mccarthy. We discussed the patient's results and treatment plan. The patient will be evaluated by the [facility] for further management. Medical Decision Medication Reconciliation: I attest that I have personally reviewed the patient' s current medication list Blood pressure screening: Patient was found to have normal blood pressure on screening and does not require follow-up. Triage Nursing notes reviewed and agree them. The patient's history was concerning for swelling and redness of the skin. Differential diagnosis: Etiologies such as cellulitis, DVT, necrotizing fasciitis, abscess, MRSA infection, dermatitis, drug eruption, as well as others were entertained.. Physical examination: The physical examination was consistent with continued cellulitis ER treatment provided: IV Rocephin IV vancomycin Diagnostics interpreted by me: The labs revealed an unremarkable CBC. Mild renal insufficiency in chemistry panel but improved. The patient continues to have cellulitis despite oral treatment and 2 days of Emergency Room visits and IV treatment. He will need further evaluation and management in the hospital. Consultation: A consultation was placed with the hospitalist. The case was discussed and diagnostics were reviewed. The patient was evaluated in the ER for further treatment. Consults Time Called: 2123 Consulting Physician: Dr. Mccarthy Returned Call: [address] Mccarthy. We discussed the patient's results and treatment plan. [facility] Impression Primary Impression: Cellulitis of right foot Additional Impression: Failure of outpatient treatment Scribe Attestation The scribe's documentation has been prepared under my direction and personally reviewed by me in its entirety. I confirm that the note above accurately reflects all work, treatment, procedures, and medical decision making performed by me. Departure Information Dispostion Being Evaluated By Hospitalist Referrals Jacob Jones MD (PCP) Patient Instructions My [facility] Problem Qualifiers
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
[2017-03-05] MEDS: PREGABALIN 100 MG CAP PO SCH ×2 (03:55→16:05)
[2017-03-05] MEDS: OXYBUTYNIN CHLORIDE 5 MG TAB PO SCH ×2 (03:56→16:03)
[2017-03-05] MEDS: DOCUSATE SODIUM 100 MG CAP PO SCH ×2 (03:56→16:03)
[2017-03-05] MEDS: ARFORMOTEROL TART 15MCG/2ML VIAL INH SCH ×2 (04:12→15:24)
[2017-03-05] MEDS: BUDESONIDE 0.5 MG/2 ML VIAL (PULMICORT) INH SCH ×2 (04:13→15:24)
[2017-03-05] MEDS: HEPARIN SOD 5000 UNIT/0.5 ML CARP SQ SCH ×3 (06:10→21:23)
[2017-03-05 07:33] LABS: BASO % 0.2 %; BASO ABS # 0.01 K/uL (0-0.2); COMPLETE YES; EOS % 2.1 %; HEMATOCRIT 34.6 % (42-52); IG% 0.4 %; LYMPH % 21.3 %; LYMPH ABS # 1.11 K/uL (1.2-3.4); MEAN CELL VOLUME 100.6 fL (80-100); MEAN CORPUSCULAR HEMOGLOBIN 33.1 pg (25-34); MEAN CORPUSCULAR HGB CONC 32.9 g/dl (32-36); MEAN PLATELET VOLUME 10.4 fL (7.4-10.4); MONO % 13.2 %; NEUT % 62.8 %; PLATELET COUNT 176 K/uL (130-400); RED BLOOD COUNT 3.44 M/uL (4.7-6.1); WHITE BLOOD COUNT 5.21 K/uL (4.8-10.8)
[2017-03-05] MEDS ORDERED: ARFORMOTEROL TART 15MCG/2ML VIAL INH SCH (08:00)
[2017-03-05] MEDS ORDERED: PREGABALIN 100 MG CAP PO SCH (08:00)
[2017-03-05] MEDS ORDERED: OXYBUTYNIN CHLORIDE 5 MG TAB PO SCH (08:00)
[2017-03-05] MEDS ORDERED: VANCOMYCIN CONSULT ACTIVE PRN (08:00)
[2017-03-05] MEDS ORDERED: DOCUSATE SODIUM 100 MG CAP PO SCH (08:00)
[2017-03-05] MEDS ORDERED: BUDESONIDE 0.5 MG/2 ML VIAL (PULMICORT) INH SCH (08:00)
[2017-03-05 08:11] LABS: BUN/CREATININE RATIO 11.8 (10-20); CREATININE 1.9 mg/dl (0.60-1.40); POTASSIUM 4.2 mmol/L (3.5-5.1)
[2017-03-05] MEDS: PANTOprazole SOD 40 MG TAB PO SCH ×2 (08:16→19:31)
[2017-03-05] MEDS: ASPIRIN 81 MG ECTAB PO SCH (08:16)
[2017-03-05] MEDS: CEROVITE ADV FORMULA TAB PO SCH (08:16)
[2017-03-05] MEDS: LISINOPRIL 2.5 MG TAB PO SCH (08:17)
[2017-03-05 08:34] LABS: CALCIUM 8.3 mg/dl (8.5-10.1)
--- NOTE | 2017-03-05 08:53 | Progress Note ---
Progress Note Date of Service Mar 05, 2017. Progress Note ID Consult Dictated # [id number] A/P: 1. R foot cellulitis -Continue IV abx for now, follow cultures, hopefully transition to po abx soon -Will follow, thank you
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
--- NOTE | 2017-03-05 13:21 | Progress Note ---
Internal Med Progress Note Date of Service: Mar 05, 2017. Provider Documentation: SUBJECTIVE: Patient is doing better Redness, pain, swelling in right foot- improving. No fever, chills. OBJECTIVE: Vital Signs-as noted below Exam: General-AAOX3, no distress Neck-Supple, No JVD Lungs-AEBE, no wheezing Heart-S1, S2 normal, no murmurs Extremities-Right foot- callus on dorsum of foot with mild oozing, Erythema, swelling, tenderness improving Lab data as noted below. ASSESSMENT & PLAN: ASSESSMENT AND PLAN : CELLULITIS, RIGHT FOOT Secondary to infected wound on dorsum of right foot. Has had this callus which has required intermittent debridements outpatient. Was discharged from ER on keflex, but came back with no improvement -Clinically improved redness, pain and swelling -Afebrile, no leucocytosis -IV Vancomycin (Day 1) -Follow up wound cultures -ID consulted due to multiple antibiotics allergies to guide treatment and duration HTN Stable CHRONIC RESPIRATORY FAILURE SECONDARY TO COPD -On oxygen at night CKD Stable, at baseline CHRONIC ANEMIA SECONDARY TO CKD -No signs of active bleeding -Monitor HX OF PROSTATE CARCINOMA S/P SURGERY PAST TOBACCO ABUSE DVT prophylaxis, Heparin subQ. Full code. DISPOSITION Expected discharge home when stable Vital Signs: Date Time Temp Pulse Resp B/P (MAP) Pulse Ox O2 Delivery O2 Flow Rate FiO2 03/05/17 08:00 94 Room Air 03/05/17 07:29 36.7 59 18 120/77 (91) 94 Room Air 03/05/17 04:15 74 16 96 Nasal Cannula 2.0 03/04/17 23:30 Room Air 03/04/17 23:22 36.5 66 18 145/89 (107) 96 Room Air 03/04/17 23:20 Room Air 03/04/17 22:44 66 18 129/92 94 Room Air 03/04/17 20:55 36.7 75 18 112/76 95 Room Air Lab Results: Results Past 24 Hours Test 03/04/17 21:30 03/05/17 06:45 Range/Units White Blood Count 6.93 5.21 4.8-10.8 K/uL Red Blood Count 3.71 3.44 4.7-6.1 M/uL Hemoglobin 12.4 11.4 14.0-18.0 g/dL Hematocrit 37.2 34.6 42-52 % Mean Corpuscular Volume 100.3 100.6 80-100 fL Mean Corpuscular Hemoglobin 33.4 33.1 25-34 pg Mean Corpuscular Hemoglobin Concent 33.3 32.9 32-36 g/dl Platelet Count 189 176 130-400 K/uL Mean Platelet Volume 10.0 10.4 7.4-10.4 fL Neutrophils (%) (Auto) 66.5 62.8 % Lymphocytes (%) (Auto) 18.2 21.3 % Monocytes (%) (Auto) 13.4 13.2 % Eosinophils (%) (Auto) 1.2 2.1 % Basophils (%) (Auto) 0.1 0.2 % Neutrophils # (Auto) 4.61 3.27 1.4-6.5 K/uL Lymphocytes # (Auto) 1.26 1.11 1.2-3.4 K/uL Monocytes # (Auto) 0.93 0.69 0.11-0.59 K/uL Eosinophils # (Auto) 0.08 0.11 0-0.5 K/uL Basophils # (Auto) 0.01 0.01 0-0.2 K/uL RDW Standard Deviation 49.9 50.2 36.4-46.3 fL RDW Coefficient of Variation 13.6 13.6 11.5-14.5 % Immature Granulocyte % (Auto) 0.6 0.4 % Immature Granulocyte # (Auto) 0.04 0.02 0.00-0.02 K/uL Prothrombin Time 11.5 9.0-12.0 SECONDS Prothromb Time International Ratio 1.1 0.9-1.1 Sodium Level 140 141 136-145 mmol/L Potassium Level 4.1 4.2 3.5-5.1 mmol/L Chloride Level 108 109 98-107 mmol/L Carbon Dioxide Level 22 25 21-32 mmol/L Anion Gap 10.0 7.0 3-11 mmol/L Blood Urea Nitrogen 23 23 7-18 mg/dl Creatinine 2.10 1.90 0.60-1.40 mg/dl Est Creatinine Clear Calc Drug Dose 35.8 39.6 ml/min Estimated GFR () 35.4 39.9 Estimated GFR (Non- 30.5 34.5 BUN/Creatinine Ratio 11.0 11.8 10-20 Random Glucose 95 105 70-99 mg/dl Calcium Level 8.7 8.3 8.5-10.1 mg/dl Total Bilirubin 0.9 0.2-1 mg/dl Direct Bilirubin 0.3 0-0.2 mg/dl Aspartate Amino Transf (AST/SGOT) 20 15-37 U/L Alanine Aminotransferase (ALT/SGPT) 20 12-78 U/L Alkaline Phosphatase 81 45-117 U/L Total Protein 7.5 6.4-8.2 gm/dl Albumin 3.4 3.4-5.0 gm/dl Hepatitis C Antibody Screen NEG NEG Microbiology Results 03/05/17 Gram Stain - Final, Resulted 03/05/17 Wound Culture, Resulted Pending
[2017-03-05] MEDS ORDERED: OXYCODONE/ACETAMINOPHEN 5-325 TAB PO PRN (13:30)
--- NOTE | 2017-03-05 14:00 | Podiatry Consultation ---
Podiatry Consultation Date of Consultation: Mar 05, 2017. Attending Physician: Pooja. Ayala S Reason for Consultation: right foot cellulitis History of Present Illness right foot cellulitis secondary to dorsal right foot lesion associated with arthritis of the first metatarsal phalangeal joint Past Medical/Surgical History Medical Problems: (1) Cellulitis of foot, right Status: Acute (2) Cellulitis of right foot Status: Acute (3) Cellulitis of right foot Status: Acute (4) Failure of outpatient treatment Status: Acute Family History Cancer Heart disease Kidney disease Social History Smoking Status: Former Smoker Marital Status: Occupation Status: retired Allergies Coded Allergies: Benzocaine (Verified Allergy, Severe, SLOUGHING OF SKIN, 03/03/17) Clindamycin (Verified Allergy, Intermediate, RASH, 03/03/17) Clobetasol (Verified Allergy, Unknown, ITCHING, 03/03/17) Doxycycline (Verified Allergy, Unknown, RASH, 03/03/17) Penicillins (Verified Allergy, Unknown, HIVES, 03/03/17) Phenylethylamine (Verified Allergy, Unknown, ITCHING, 03/03/17) Tea Tree Oil (Verified Allergy, Unknown, ITCHING, 03/03/17) Uncoded Allergies: CLEOCIN (Allergy, Unknown, SHUT KIDNEY DOWN, 05/05/15) Home Medications Scheduled Arformoterol Tartrate (Brovana), 15 MCG NEB BID Aspirin (Aspir-81), 81 MG PO QAM Budesonide (Inhalation) (Pulmicort Respules 0.5MG/2ML), 2 ML NEB BID Cephalexin (Keflex), 1 CAP PO QID Cholecalciferol (Vitamin D3), 2,000 INTER.UNIT PO DAILY Cyanocobalamin (Cyanocobalamin), 1,000 MCG IM MONTHLY Docusate Sodium (Stool Softener), 100 MG PO BID Ferrous Sulfate (Ferrous Sulfate), 325 MG PO QPM Lisinopril (Lisinopril), 10 MG PO QAM Multiple Vitamins W/ Minerals (Centrum Silver Adult 50+), 1 TAB PO DAILY Omeprazole (Prilosec), 20 MG PO BID Oxybutynin Chloride (Oxybutynin Chloride), 5 MG PO BID Oxygen (Oxygen), 3 LITERS NA HS Pregabalin (Lyrica), 100 MG PO BID Scheduled PRN Albuterol Sulf (Proventil 0.083% 2.5MG/3ML), 2.5 MG NEB Q4H PRN for SOB/Wheezing Azithromycin (Zithromax), 250 MG PO UD PRN for COPD/Asthma Rescue Kit Ipratropium-Albuterol (Combivent Respimat), 1 PUFF INH QID PRN for Cough/ Wheezing Lorazepam (Lorazepam), 0.5 MG PO TID PRN for Anxiety Prednisone (Deltasone), 20 MG PO UD PRN for COPD/Asthma Rescue Kit Triamcinolone Acet (Aristocort 0.1%), 1 APPLN TOP UD PRN for Itching Valacyclovir Hcl (Valtrex), 500 MG PO BID PRN for Outbreaks Current Inpatient Medications Current Inpatient Medications Medications (Trade) Dose Ordered Sig/Chata Route Start Time Stop Time Status Last Admin Dose Admin Heparin Sodium (Porcine) (Heparin Sq 5000 Unit/0.5ml) 5,000 unit Q8H SQ 03/05/17 06:00 04/04/17 05:59 03/05/17 13:45 5,000 UNIT Acetaminophen (Tylenol Tab) 650 mg Q4H PRN PO 03/04/17 22:30 04/03/17 22:29 Tramadol HCl (Ultram Tab) 25 mg Q6H PRN PO 03/04/17 22:30 04/03/17 22:29 Ondansetron HCl (Zofran Inj) 4 mg Q6H PRN IV 03/04/17 22:30 04/03/17 22:29 Aspirin (Ecotrin Tab) 81 mg QAM PO 03/05/17 08:00 04/04/17 08:59 03/05/17 08:16 81 MG Ferrous Sulfate (Feosol Tab) 325 mg QPM PO 03/05/17 21:00 04/04/17 20:59 Lisinopril (Zestril Tab) 2.5 mg QAM PO 03/05/17 08:00 04/04/17 08:59 03/05/17 08:17 2.5 MG Lorazepam (Ativan Tab) 0.5 mg TID PRN PO 03/04/17 22:30 04/03/17 22:29 03/05/17 03:55 0.5 MG Multivitamins/ Minerals (Multivitamin W/ Minerals Tab) 1 tab DAILY PO 03/05/17 08:00 04/04/17 08:59 03/05/17 08:16 1 TAB Pantoprazole Sodium (Protonix Tab) 40 mg BID PO 03/05/17 08:00 04/04/17 07:59 03/05/17 08:16 40 MG Albuterol/ Ipratropium (Duoneb) 3 ml Q2H PRN INH 03/04/17 22:30 04/03/17 22:29 Vancomycin HCl (Consult) 1 ea DAILY PRN N/A 03/05/17 08:00 04/04/17 08:59 Vancomycin HCl 1500 mg/Sodium Chloride 530 ml @ 200 mls/hr DAILY@1999 IV 03/05/17 20:00 03/15/17 19:59 Arformoterol Tartrate (Brovana 15MCG/ 2ML Neb Soln) 15 mcg BID@0400,1600 INH 03/05/17 04:00 04/04/17 03:59 03/05/17 04:12 15 MCG Budesonide (Pulmicort Respules 0.5MG/ 2ML Neb Soln) 1 mg BID@0400,1600 INH 03/05/17 04:00 04/04/17 03:59 03/05/17 04:13 1 MG Oxybutynin Chloride (Ditropan Tab) 5 mg BID@0400,1600 PO 03/05/17 04:00 04/04/17 03:59 03/05/17 03:56 5 MG Pregabalin (Lyrica Cap) 100 mg BID@0400,1600 PO 03/05/17 04:00 04/04/17 03:59 03/05/17 03:55 100 MG Docusate Sodium (coLACE CAP) 100 mg BID@0400,1600 PO 03/05/17 04:00 04/04/17 03:59 03/05/17 03:56 100 MG Oxycodone/ Acetaminophen (Percocet 5-325mg Tab) 1 tab Q4H PRN PO 03/05/17 13:30 03/19/17 13:29 Physical Exam Date Time Temp Pulse Resp B/P (MAP) Pulse Ox O2 Delivery O2 Flow Rate FiO2 03/05/17 08:00 94 Room Air 03/05/17 07:29 36.7 59 18 120/77 (91) 94 Room Air 03/05/17 04:15 74 16 96 Nasal Cannula 2.0 03/04/17 23:30 Room Air 03/04/17 23:22 36.5 66 18 145/89 (107) 96 Room Air 03/04/17 23:20 Room Air 03/04/17 22:44 66 18 129/92 94 Room Air 03/04/17 20:55 36.7 75 18 112/76 95 Room Air General Appearance: no apparent distress Extremities/Musculoskelatal: + inflammation, + pedal edema, + swelling, + pertinent finding (right foot with improved swelling per patient, pain noted with range of motion of the first metatarsal phalangeal joint with xrays showing underlying arthritic changes at the joint with exostosis present, this is likely contributory to the callus formation at the dorsal aspect of the foot just lateral to the first metatarsal phalangeal joint; lesion present has some dried hemmorhagic tissue present with tenderness with palpation, lesion measures about 2x2 cm hard callus like appearance, well adhered, recommend biopsy of the lesion, area was cleaned with betadine and sample debrided and sent to pathology) Laboratory Results Last 24 Hours Test 03/04/17 21:30 03/05/17 06:45 White Blood Count 6.93 K/uL 5.21 K/uL Red Blood Count 3.71 M/uL 3.44 M/uL Hemoglobin 12.4 g/dL 11.4 g/dL Hematocrit 37.2 % 34.6 % Mean Corpuscular Volume 100.3 fL 100.6 fL Mean Corpuscular Hemoglobin 33.4 pg 33.1 pg Mean Corpuscular Hemoglobin Concent 33.3 g/dl 32.9 g/dl Platelet Count 189 K/uL 176 K/uL Mean Platelet Volume 10.0 fL 10.4 fL Neutrophils (%) (Auto) 66.5 % 62.8 % Lymphocytes (%) (Auto) 18.2 % 21.3 % Monocytes (%) (Auto) 13.4 % 13.2 % Eosinophils (%) (Auto) 1.2 % 2.1 % Basophils (%) (Auto) 0.1 % 0.2 % Neutrophils # (Auto) 4.61 K/uL 3.27 K/uL Lymphocytes # (Auto) 1.26 K/uL 1.11 K/uL Monocytes # (Auto) 0.93 K/uL 0.69 K/uL Eosinophils # (Auto) 0.08 K/uL 0.11 K/uL Basophils # (Auto) 0.01 K/uL 0.01 K/uL RDW Standard Deviation 49.9 fL 50.2 fL RDW Coefficient of Variation 13.6 % 13.6 % Immature Granulocyte % (Auto) 0.6 % 0.4 % Immature Granulocyte # (Auto) 0.04 K/uL 0.02 K/uL Prothrombin Time 11.5 SECONDS Prothromb Time International Ratio 1.1 Sodium Level 140 mmol/L 141 mmol/L Potassium Level 4.1 mmol/L 4.2 mmol/L Chloride Level 108 mmol/L 109 mmol/L Carbon Dioxide Level 22 mmol/L 25 mmol/L Anion Gap 10.0 mmol/L 7.0 mmol/L Blood Urea Nitrogen 23 mg/dl 23 mg/dl Creatinine 2.10 mg/dl 1.90 mg/dl Est Creatinine Clear Calc Drug Dose 35.8 ml/min 39.6 ml/min Estimated GFR () 35.4 39.9 Estimated GFR (Non- 30.5 34.5 BUN/Creatinine Ratio 11.0 11.8 Random Glucose 95 mg/dl 105 mg/dl Calcium Level 8.7 mg/dl 8.3 mg/dl Total Bilirubin 0.9 mg/dl Direct Bilirubin 0.3 mg/dl Aspartate Amino Transf (AST/SGOT) 20 U/L Alanine Aminotransferase (ALT/SGPT) 20 U/L Alkaline Phosphatase 81 U/L Total Protein 7.5 gm/dl Albumin 3.4 gm/dl Hepatitis C Antibody Screen NEG Assessment & Plan 1. 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 Discussed with patient after resolution of cellulitis he would benefit jail from fusion of the first metatarsal phalangeal joint to eliminate the pressure callus/lesion and to improve his mobility, patient has been seen in office and has an mri from [phone], will obtain and review copy as this was not my patient in the office - podiatry will continue to follow with patient, and will continue on an outpatient basis as well, appreciate the consult
[2017-03-05] MEDS ORDERED: VANCOMYCIN INJ 1,500 MG in SODIUM CHLORIDE 0.9% 500ML 500 ML IV SCH (20:00)
[2017-03-05] MEDS ORDERED: FERROUS SULFATE 325 MG TAB PO SCH (21:00)
[2017-03-06] MEDS ORDERED: IPRATROPIUM BROMIDE/ALBUTEROL respimat INH INH PRN
[2017-03-06] MEDS: PREGABALIN 100 MG CAP PO SCH (01:57)
[2017-03-06] MEDS: DOCUSATE SODIUM 100 MG CAP PO SCH (01:57)
[2017-03-06] MEDS: OXYBUTYNIN CHLORIDE 5 MG TAB PO SCH (01:57)
[2017-03-06 04:17] VITALS: PULSE 72; O2SAT 95
[2017-03-06] MEDS: BUDESONIDE 0.5 MG/2 ML VIAL (PULMICORT) INH SCH (04:17)
[2017-03-06] MEDS: ARFORMOTEROL TART 15MCG/2ML VIAL INH SCH (04:17)
[2017-03-06] MEDS: HEPARIN SOD 5000 UNIT/0.5 ML CARP SQ SCH ×2 (05:48→14:00)
[2017-03-06 07:07] VITALS: BP 138/90; PULSE 63; TEMP 36.6; O2SAT 95
[2017-03-06] MEDS: PANTOprazole SOD 40 MG TAB PO SCH (07:44)
[2017-03-06] MEDS: ASPIRIN 81 MG ECTAB PO SCH (07:44)
[2017-03-06] MEDS: CEROVITE ADV FORMULA TAB PO SCH (07:44)
[2017-03-06] MEDS: LISINOPRIL 2.5 MG TAB PO SCH (07:45)
[2017-03-06 07:47] LABS: BUN/CREATININE RATIO 11.5 (10-20); CALCIUM 8.9 mg/dl (8.5-10.1); CREATININE 1.9 mg/dl (0.60-1.40); POTASSIUM 3.9 mmol/L (3.5-5.1)
--- NOTE | 2017-03-06 10:48 | Progress Note ---
Subjective Date of Service: Mar 06, 2017. Subjective Pt evaluation today including: conversation w/ patient, physical exam, chart review, lab review pt seen in followup. no events. feeling better, asking to go home. less pain and swelling today. able to ambulate. plans for outpt podiatry eval and eventual surgery. tolerating abx, no n/v/d. no abd pain. culture pending, gram stain negative. all remaining ros reviewed and are negative. Problem List Medical Problems: (1) Cellulitis of foot, right Status: Acute (2) Cellulitis of right foot Status: Acute (3) Cellulitis of right foot Status: Acute (4) Failure of outpatient treatment Status: Acute Objective Vital Signs Date Time Temp Pulse Resp B/P (MAP) Pulse Ox O2 Delivery O2 Flow Rate FiO2 03/06/17 07:07 36.6 63 20 138/90 (106) 95 Room Air 03/06/17 04:17 72 16 95 Room Air 03/06/17 00:00 Room Air 03/05/17 23:04 36.8 67 20 135/88 (104) 95 Room Air 03/05/17 16:00 94 Room Air 03/05/17 15:27 65 16 94 Room Air 03/05/17 14:43 36.6 70 20 169/92 (117) 95 Room Air Physical Exam General Appearance: WD/WN, no apparent distress Eyes: normal inspection, EOMI Neck: supple Respiratory/Chest: lungs clear, normal breath sounds, no respiratory distress, no accessory muscle use Cardiovascular: regular rate, rhythm, no edema Abdomen: non tender, soft Extremities: non-tender Neurologic/Psychiatric: alert, oriented x 3 Skin: normal color Comments: foot with edema but improved, no drainage from wound, less erythema, non tender , no warmth Laboratory Results Item Value Date Time Gram Stain - Final Resulted 03/05/17 0000 Drainage - Surface Foot Right Last 24 Hours Test 03/06/17 06:36 Sodium Level 141 mmol/L Potassium Level 3.9 mmol/L Chloride Level 108 mmol/L Carbon Dioxide Level 26 mmol/L Anion Gap 7.0 mmol/L Blood Urea Nitrogen 22 mg/dl Creatinine 1.90 mg/dl Est Creatinine Clear Calc Drug Dose 39.6 ml/min Estimated GFR () 39.9 Estimated GFR (Non- 34.5 BUN/Creatinine Ratio 11.5 Random Glucose 92 mg/dl Calcium Level 8.9 mg/dl Assessment and Plan (1) Cellulitis of leg Assessment & Plan: can continue Iv abx for now. multiple allergies, if pt is to be d/c prior to final wound culture would suggest keflex 500mg po bid. he does have pcn allergy but has recently tolerated cephalosporins. has reported allergy to doxy and clinda, MRSA coverage po limited with elevated creat, would avoid bactrim in this pt. will need continued podiatry eval outpt
--- NOTE | 2017-03-06 12:34 | Podiatry Progress Note ---
Subjective Date of Service Mar 06, 2017. Subjective Pt evaluation today including: conversation w/ patient Pain: improved Review of Systems right foot with lesion from hallux rigidus of the right foot - small dressing in place, will need bandaid over area x 7 days, will arrange outpatient f/u in office for surgery Objective Vital Signs Date Time Temp Pulse Resp B/P (MAP) Pulse Ox O2 Delivery O2 Flow Rate FiO2 03/06/17 08:00 Room Air 03/06/17 07:07 36.6 63 20 138/90 (106) 95 Room Air 03/06/17 04:17 72 16 95 Room Air 03/06/17 00:00 Room Air 03/05/17 23:04 36.8 67 20 135/88 (104) 95 Room Air 03/05/17 16:00 94 Room Air 03/05/17 15:27 65 16 94 Room Air 03/05/17 14:43 36.6 70 20 169/92 (117) 95 Room Air Physical Exam Skin: + pertinent finding (right foot with small dried blood over the callus/ lesion area - improved pain and improved and resolving cellulitis noted) Comments: right foot - s/p biopsy of mass, dressing in place, continue bandaid over area x 7 days and will arrange f/u in office Laboratory Results Last 24 Hours Test 03/06/17 06:36 Sodium Level 141 mmol/L Potassium Level 3.9 mmol/L Chloride Level 108 mmol/L Carbon Dioxide Level 26 mmol/L Anion Gap 7.0 mmol/L Blood Urea Nitrogen 22 mg/dl Creatinine 1.90 mg/dl Est Creatinine Clear Calc Drug Dose 39.6 ml/min Estimated GFR () 39.9 Estimated GFR (Non- 34.5 BUN/Creatinine Ratio 11.5 Random Glucose 92 mg/dl Calcium Level 8.9 mg/dl Assessment and Plan 1. 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- cellulitis much improved/ resolved - etiology of lesion is secondary to arthritic changes at the first metatarsal phalangeal joint, lack of normal range of motion of joint contributory to the formation of the callus/ lesion, its location makes it easily susceptible to trauma which then leads to infection, portion of the lesion sent for pathology for diagnosis of a hyperkeratotic skin lesion performed yesterday and pathology is pending, recommend to continue abx per ID recs, small dressing placed over foot after biopsy specimen obtained, will need bandaid over area x 7days Discussed with patient after resolution of cellulitis he would benefit longterm from fusion of the first metatarsal phalangeal joint to eliminate the pressure callus/lesion and to improve his mobility, patient has been seen in office and has an mri from 611 - reviewed and confirmed hallux rigidus/arthritis of the first metatarsal phalangeal joint - patient is stable for d/c from podiatry perspective and will arrange f/u in office once patient is d/c Discharge planning: home
--- NOTE | 2017-03-06 13:17 | Progress Note ---
Internal Med Progress Note Date of Service: Mar 06, 2017. Provider Documentation: SUBJECTIVE : Patient is doing much better Redness, pain, swelling in right foot- improvement around 70% No fever, chills. OBJECTIVE: Vital Signs-as noted below Exam: General-AAOX3, no distress Neck-Supple, No JVD Lungs-AEBE, no wheezing Heart-S1, S2 normal, no murmurs Extremities-Right foot- callus on dorsum of foot S/P biopsy -dressing present, slight erythema around biopsy site but overall foot cellulitis has resolved except for some swelling. Lab data as noted below. ASSESSMENT & PLAN: ASSESSMENT AND PLAN : CELLULITIS, RIGHT FOOT - Improved clinically-70% Secondary to infected wound on dorsum of right foot. Has had this callus which has required intermittent debridements outpatient. Was discharged from ER on keflex, but came back with no improvement. -Per podiatry, ETIOLOGY - Has arthritis in 1st metatarsal phalangeal joint, lack of normal ROM leading to formation of callus/lesion and thus susceptible to trauma and infection. Portion of lesion was biopsied on 03/06- pathology is pending- to look for hyperkeratotic skin lesion. Would benefit from fusion of 1st metatarsal phalangeal joint to eliminate pressure callus/lesion. -Afebrile, no leucocytosis -IV Vancomycin (Day 1) --> Changed to Keflex 500 mg PO BID per ID as limitations secondary to allergy to multiple medications. -Follow up wound cultures outpatient- growing GPB -Appreciate ID and podiatry inputs HTN Stable CHRONIC RESPIRATORY FAILURE SECONDARY TO COPD -On oxygen at night CKD Stable, at baseline CHRONIC ANEMIA SECONDARY TO CKD -No signs of active bleeding -Monitor HX OF PROSTATE CARCINOMA S/P SURGERY PAST TOBACCO ABUSE DVT prophylaxis, Heparin subQ. Full code. DISPOSITION Ok to discharge home today Follow up with PCP, Podiatry outpatient Vital Signs: Date Time Temp Pulse Resp B/P (MAP) Pulse Ox O2 Delivery O2 Flow Rate FiO2 03/06/17 08:00 Room Air 03/06/17 07:07 36.6 63 20 138/90 (106) 95 Room Air 03/06/17 04:17 72 16 95 Room Air 03/06/17 00:00 Room Air 03/05/17 23:04 36.8 67 20 135/88 (104) 95 Room Air 03/05/17 16:00 94 Room Air 03/05/17 15:27 65 16 94 Room Air 03/05/17 14:43 36.6 70 20 169/92 (117) 95 Room Air Lab Results: Results Past 24 Hours Test 03/06/17 06:36 Range/Units Sodium Level 141 136-145 mmol/L Potassium Level 3.9 3.5-5.1 mmol/L Chloride Level 108 98-107 mmol/L Carbon Dioxide Level 26 21-32 mmol/L Anion Gap 7.0 3-11 mmol/L Blood Urea Nitrogen 22 7-18 mg/dl Creatinine 1.90 0.60-1.40 mg/dl Est Creatinine Clear Calc Drug Dose 39.6 ml/min Estimated GFR () 39.9 Estimated GFR (Non- 34.5 BUN/Creatinine Ratio 11.5 10-20 Random Glucose 92 70-99 mg/dl Calcium Level 8.9 8.5-10.1 mg/dl
[2017-03-06] MEDS ORDERED: ULT50X PO (13:20)
[2017-03-06] MEDS ORDERED: CEPH-571 PO ×2 (13:20→13:35)
--- NOTE | 2017-03-06 13:24 | Discharge Summary ---
Discharge Summary Date of Service Mar 06, 2017. Discharge Summary Admission Date: Mar 04, 2017 at 21:58 Discharge Date: Mar 06, 2017 Discharge Disposition: Home Principal Diagnosis: 1. Right foot cellulitis 2. First metatarsal joint arthritis Secondary Diagnoses/Problems: 1. HTN 2. CKD 3. Anemia, chronic 4. Chronic hypoxic respiratory failure on oxygen at night 5. Hx of prostate carcinoma s/p surgery Procedures: IV antibiotics Biopsy- lesion on dorsum of right foot by podiatry on 03/05/17 Consultations: Podiatry ID Pending Studies/Follow-Up: Instructions / Follow-Up MEDICATION CHANGES: 1. New medication: Keflex 500 mg PO BID x 8 more days (You were on this antibiotic prior to coming to hospital) 2. Tramadol 25 mg q 6 hours as needed for moderate pain. For mild pain, take tylenol 650 mg q 6 hours as needed FOLLOW UP 1. Follow up with Dr Jones on 03/09/17 at 11:05 AM 2. Follow up with Podiatry as per schedule Medication Reconciliation New Medications: Tramadol HCl (Tramadol HCl) 50 Mg Tab 25 MG PO Q6H PRN for Pain, #20 TAB Continued Medications: Albuterol Sulf (Proventil 0.083% 2.5MG/3ML) 2.5 Mg/3 Ml Nebu 2.5 MG NEB Q4H PRN for SOB/Wheezing Arformoterol Tartrate (Brovana) 15 Mcg/2 Ml Neb 15 MCG NEB BID MIX WITH BEDESONIDE Aspirin (Aspir-81) 81 Mg Tab 81 MG PO QAM Azithromycin (Zithromax) 250 Mg Tab 250 MG PO UD PRN for COPD/Asthma Rescue Kit, #6 TAB RESCUE KIT FOLLOWS: TAKE 2 TABLETS ON FIRST DAY THEN 1 TABLET DAILY FOR FOUR DAYS Budesonide (Inhalation) (Pulmicort Respules 0.5MG/2ML) 0.5 Mg/2 Ml Yareli 2 ML NEB BID, EA Cephalexin (Keflex) 500 Mg Cap 1 CAP PO QID for 8 Days, #24 CAP (This prescription has been renewed) Cholecalciferol (Vitamin D3) 2,000 Unit Cap 2000 INTER.UNIT PO DAILY Cyanocobalamin (Cyanocobalamin) 1,000 Mcg/Ml Inj 1000 MCG IM MONTHLY Docusate Sodium (Stool Softener) 100 Mg Tab 100 MG PO BID Ferrous Sulfate (Ferrous Sulfate) 325 Mg Tab 325 MG PO QPM Ipratropium-Albuterol (Combivent Respimat) 1 Aer Aer 1 PUFF INH QID PRN for Cough/Wheezing Lisinopril (Lisinopril) 10 Mg Tab 10 MG PO QAM Lorazepam (Lorazepam) 0.5 Mg Tab 0.5 MG PO TID PRN for Anxiety Multiple Vitamins W/ Minerals (Centrum Silver Adult 50+) 1 Tab Tab 1 TAB PO DAILY Omeprazole (Prilosec) 20 Mg Cap 20 MG PO BID Oxybutynin Chloride (Oxybutynin Chloride) 5 Mg Tab 5 MG PO BID Oxygen (Oxygen) Gas 3 LITERS NA HS Prednisone (Deltasone) 20 Mg Tab 20 MG PO UD PRN for COPD/Asthma Rescue Kit TAKE 2 TABLETS (40 MG) DAILY FOR 5 DAYS Pregabalin (Lyrica) 100 Mg Cap 100 MG PO BID Triamcinolone Acet (Aristocort 0.1%) 90 Appln/30 Gm Cr 1 APPLN TOP UD PRN for Itching APPLY TWICE DAILY IF NEEDED FOR ITCHY LEGS Valacyclovir Hcl (Valtrex) 500 Mg Tab 500 MG PO BID PRN for Outbreaks Admission Information HPI (per Admitting provider): HISTORY OF PRESENT ILLNESS: Medical history is significant for chronic respiratory failure on home O2 at night, COPD as per records, past tobacco abuse, hypertension, chronic anemia, baseline hemoglobin (12-13), chronic renal insufficiency (baseline creatinine 2.1), history of genital herpes as per records, history of prosate cancer status post surgery. Recent confinement 2013 under Urology service for prostatectomy for prostate cancer. As per records, about 6 months ago patient noted a callus on the top his right foot. Subsequently got infected, treated with antibiotics. Found to have a right foot wart. Px was seen at local podiatry office (Dr. Hurd). Debridement done, subsequent topical medication prescribed and subsequently healing noted. Recurrence of a callus on the right foot dorsum. A few days ago, the patient had injury leading to an open wound on the area of a right foot callus after hitting it w/wood. Seen at the Emergency Room. PX noted to have a small superficial wound on the foot dorsum. Patient given IV Cefazolin and prescribed Keflex. Right foot swelling having a bloody yellowish drainage. Patient returned to the ER yesterday. He received IV vancomycin and Ceftriaxone in the ER. Some improvement of drainage but persistent redness. No fever/chills. Patient returned to Emergency Room tonight. Received IV Vancomycin and Ceftriaxone. Hospital Course ASSESSMENT AND PLAN : CELLULITIS, RIGHT FOOT - Improved clinically-70% Secondary to infected wound on dorsum of right foot. Has had this callus which has required intermittent debridements outpatient. Was discharged from ER on keflex, but came back with no improvement. -Per podiatry, ETIOLOGY - Has arthritis in 1st metatarsal phalangeal joint, lack of normal ROM leading to formation of callus/lesion and thus susceptible to trauma and infection. Portion of lesion was biopsied on 03/06- pathology is pending- to look for hyperkeratotic skin lesion. Would benefit from fusion of 1st metatarsal phalangeal joint to eliminate pressure callus/lesion. -Afebrile, no leucocytosis -IV Vancomycin (Day 1) --> Changed to Keflex 500 mg PO BID per ID as limitations secondary to allergy to multiple medications. -Follow up wound cultures outpatient- growing GPB -Appreciate ID and podiatry inputs HTN Stable CHRONIC RESPIRATORY FAILURE SECONDARY TO COPD -On oxygen at night CKD Stable, at baseline CHRONIC ANEMIA SECONDARY TO CKD -No signs of active bleeding -Monitor HX OF PROSTATE CARCINOMA S/P SURGERY PAST TOBACCO ABUSE DVT prophylaxis, Heparin subQ. Full code. DISPOSITION Ok to discharge home today Follow up with PCP, Podiatry outpatient Total time spent on discharge = 28 minutes This includes examination of the patient, discharge planning, medication reconciliation, and communication with other providers. Discharge Instructions Activity Recommendations Activity Limitations: resume your previous activity . Instructions / Follow-Up Instructions / Follow-Up MEDICATION CHANGES: 1. New medication: Keflex 500 mg PO BID x 8 more days (You were on this antibiotic prior to coming to hospital) 2. Tramadol 25 mg q 6 hours as needed for moderate pain. For mild pain, take tylenol 650 mg q 6 hours as needed FOLLOW UP 1. Follow up with Dr Jones on 03/09/17 at 11:05 AM 2. Follow up with Podiatry as per schedule Current Hospital Diet Patient's current hospital diet: AHA Diet (Heart Healthy) Discharge Diet Recommended Diet: AHA Diet (Heart Healthy) Pending Studies Studies pending at discharge: no Medical Emergencies . Who to Call and When: Medical Emergencies: If at any time you feel your situation is an emergency, please call 911 immediately. . Non-Emergent Contact Non-Emergency issues call your: Primary Care Provider, Specialist (Podiatry for wound issues) . . "Provider Documentation" section prepared by Janny Ayala. . VTE Core Measure Inpt VTE Proph given/why not?: Jovanny Norton, SCD's
[2017-03-06 13:59] VITALS: BP 138/90; PULSE 63; TEMP 36.6; O2SAT 95
[2017-03-07] MEDS ORDERED: VANCOMYCIN TROUGH SCH (19:30)
[2017-05-31] MEDS ORDERED: TRMCR130WC TOP (10:43)
[2017-05-31] MEDS ORDERED: ASPI-232 PO (10:53)
[2017-05-31] MEDS ORDERED: IPRA1AER2 INH (10:53)
[2017-05-31] MEDS ORDERED: ARFO15NE NEB (10:53)
[2017-05-31] MEDS ORDERED: OXGN (14:56)
[2017-05-31] MEDS ORDERED: PREG100C PO (16:00)
[2017-05-31] MEDS ORDERED: DTR/5 PO (16:00)
[2017-05-31] MEDS ORDERED: VALA1TAB2 PO (16:00)
[2017-05-31] MEDS ORDERED: MULT-506 PO (16:00)
[2017-05-31] MEDS ORDERED: SENNTAB13 PO (16:02)
[2017-05-31] MEDS ORDERED: SKINCRE34 TOP (16:02)
[2017-05-31] MEDS ORDERED: HYDR25SU20 PR (16:02)
[2017-05-31] MEDS ORDERED: FERR325T5 PO (17:28)
[2017-06-12] MEDS ORDERED: PANT20TA2 PO (16:22)
[2017-06-15] MEDS ORDERED: NRV5 PO (11:25)
[2017-06-15] MEDS ORDERED: IMDSR60 PO (11:25)
[2017-06-15] MEDS ORDERED: AMLO2.5T PO (11:36)
[2017-06-25] MEDS ORDERED: DOCU100C PO (07:00)
[2017-06-25] MEDS ORDERED: ALLO300T2 PO (07:00)
[2017-06-25] MEDS ORDERED: MICO12CR TOP (07:03)
[2017-06-25] MEDS ORDERED: ASPCH81X PO (07:03)
[2017-06-26] MEDS ORDERED: AZIT-57 PO (13:25)
== END 2017-03-06 14:42 | disposition home or self-care (01) | DRG 603 ==
LOC: C.EDB 20:52 → C.MS4W 21:58 → ENRESERV 22:19
PROVIDERS: ADMIT Internal Medicine; ATTEND Internal Medicine
DX: L03.115 Cellulitis of right lower limb (principal); J96.10 Chronic respiratory failure, unspecified whether with hypoxia or hypercapnia; I12.9 Hypertensive chronic kidney disease with stage 1 through stage 4 chronic kidney disease, or unspecified chronic kidney disease; N18.3 Chronic kidney disease, stage 3 (moderate); K21.9 Gastro-esophageal reflux disease without esophagitis; Z96.643 Presence of artificial hip joint, bilateral; J44.9 Chronic obstructive pulmonary disease, unspecified; D64.9 Anemia, unspecified; Z87.891 Personal history of nicotine dependence; Z85.46 Personal history of malignant neoplasm of prostate; Z82.49 Family history of ischemic heart disease and other diseases of the circulatory system; Z79.82 Long term (current) use of aspirin; I25.10 Atherosclerotic heart disease of native coronary artery without angina pectoris; K57.90 Diverticulosis of intestine, part unspecified, without perforation or abscess without bleeding; G57.93 Unspecified mononeuropathy of bilateral lower limbs; R79.89 Other specified abnormal findings of blood chemistry; K57.30 Diverticulosis of large intestine without perforation or abscess without bleeding; B00.9 Herpesviral infection, unspecified; Z95.828 Presence of other vascular implants and grafts; Z96.611 Presence of right artificial shoulder joint

== ENCOUNTER 2017-05-08 05:13 | Emergency (ER) | payer OTHER, MEDICARE ==
[~2017-05-08] VITALS: Ht 170.2 cm; Wt 100.7 kg
[~2017-05-08 05:13] MED LIST changes: +AZIT250T PO; -AZIT500T PO; -BUDE1SUS6 PO; -LORA-741 PO; +LYR100 PO; +MULT-845 PO; -MULTTAB58 PO; -OMEP20TA PO; -PRD/1 PO; -PREG100C PO; +ULT50X PO
[2017-05-08 05:18] VITALS: TEMP 36.6; Ht 170.2 cm; Wt 100.7 kg
[2017-05-08] MEDS ORDERED: PANTOprazole INJ 40 MG in SYRINGE 0 ML IV ONE (05:45)
[2017-05-08 05:59] LABS: BASO % 0.5 %; BASO ABS # 0.03 K/uL (0-0.2); COMPLETE YES; EOS % 1.7 %; HEMATOCRIT 38.3 % (42-52); IG% 0.5 %; LYMPH % 19.7 %; LYMPH ABS # 1.28 K/uL (1.2-3.4); MEAN CELL VOLUME 96.5 fL (80-100); MEAN CORPUSCULAR HGB CONC 34.2 g/dl (32-36); MEAN PLATELET VOLUME 9.9 fL (7.4-10.4); MONO % 10.8 %; NEUT % 66.8 %; PLATELET COUNT 171 K/uL (130-400); RED BLOOD COUNT 3.97 M/uL (4.7-6.1)
[2017-05-08 06:06] LABS: INR 1.1 (0.9-1.1); PROTHROMBIN TIME (PATIENT) 11.4 SECONDS (9.0-12.0)
[2017-05-08] MEDS ORDERED: SODIUM CHLORIDE 0.9% 1000ML 1,000 ML IV STA (06:13)
[2017-05-08 06:31] LABS: ALT/SGPT 28 U/L (12-78); AST/SGOT 22 U/L (15-37); BLOOD UREA NITROGEN 17 mg/dl (7-18); BUN/CREATININE RATIO 8.5 (10-20); CALCIUM 9.1 mg/dl (8.5-10.1); CARBON DIOXIDE 23 mmol/L (21-32); CHLORIDE 110 mmol/L (98-107); GLUCOSE 111 mg/dl (70-99); POTASSIUM 3.8 mmol/L (3.5-5.1); SODIUM 140 mmol/L (136-145)
[2017-05-08 06:36] LABS: ALB/GLOB RATIO 1.1 (0.9-2); ALKALINE PHOSPHATASE 98 U/L (45-117)
--- NOTE | 2017-05-08 06:37 | DIAGNOSTIC IMAGING REPORT ---
CHEST ONE VIEW PORTABLE HISTORY: 72 years-old Male chest pain COMPARISON: 04/05/2015 TECHNIQUE: Portable upright AP view of the chest FINDINGS: Bibasilar subsegmental atelectasis is seen. Cardiac silhouette is mildly enlarged. There is atherosclerosis and tortuosity of the thoracic aorta. No pneumothorax, pleural effusion or focal airspace consolidation. Bilateral shoulder arthroplasties are noted. IMPRESSION: 1. No acute cardiopulmonary process. 2. Subsegmental bibasilar atelectasis The above report was generated using voice recognition software. It may contain grammatical, syntax or spelling errors. Electronically signed by: Trenton Orourke M.D. 05/08/2017 6:36 AM Dictated Date/Time: 05/08/2017 6:34 AM
--- NOTE | 2017-05-08 06:59 | DIAGNOSTIC IMAGING REPORT ---
CT SCAN OF THE ABDOMEN AND PELVIS WITHOUT CONTRAST CLINICAL HISTORY: Intermittent epigastric pain. COMPARISON STUDY: 04/13/2015 TECHNIQUE: CT scan of the abdomen and pelvis was performed from the lung bases to the proximal femurs. Images are reviewed in the axial, sagittal, and coronal planes. IV contrast was not administered for this examination. A dose lowering technique was utilized adhering to the principles of ALARA. CT DOSE: 1189.20 mGy.cm FINDINGS: Lower chest: There are dependent atelectatic changes. There is a small hiatal hernia Liver: The unenhanced liver is normal in size, contour, and attenuation. There is no intrahepatic biliary ductal dilatation. Gallbladder: Unremarkable. Spleen: Normal in size and attenuation. Pancreas: Unremarkable. Adrenal glands: Unremarkable. Kidneys: No renal, ureteral, or bladder calculi are visualized. The distal ureters and bladder are partially obscured due to artifact from bilateral hip arthroplasties. Bowel: There are no transition zones indicate bowel obstruction. The appendix appears normal. There is colonic diverticulosis. There is no acute diverticulitis. Portions of the rectum and sigmoid are obscured due to beam hardening artifact from hip arthroplasties. Peritoneum: There is no intraperitoneal free air or abdominal ascites. Vasculature: There is a 34 mm infrarenal abdominal aortic aneurysm. There is an indwelling IVC filter. Several struts protrude outside the IVC lumen. This finding remains unchanged from the prior study Adenopathy: None. Pelvic viscera: The pelvis is partially obscured due to artifact from bilateral hip arthroplasties. Skeletal structures: No destructive osseous lesions are seen. IMPRESSION: 1. No acute intra-abdominal or pelvic findings 2. No evidence of bowel obstruction. No evidence of free air 3. 34 mm infrarenal abdominal aortic aneurysm 4. No evidence of acute appendicitis. No evidence of acute diverticulitis 5. No renal, ureteral, or bladder calculi identified. Electronically signed by: Darius Muro M.D. 05/08/2017 6:58 AM Dictated Date/Time: 05/08/2017 6:53 AM
[2017-05-08] MEDS ORDERED: ALUMINUM/MAGNESIUM SUSP 30 ML UDC PO STA (07:07)
--- NOTE | 2017-05-08 07:17 | EMERGENCY ROOM VISIT NOTE ---
History Report prepared by Kimiibtodd: Ben Canela Under the Supervision of: Dr. Manisha Nick D.O. First contact with patient: 05:24 Chief Complaint: ABDOMINAL PAIN Stated Complaint: STOMACH PAIN History of Present Illness The patient is a 72 year old male who presents to the Emergency Room with complaints of intermittent "shooting" jaw pain beginning two weeks ago. The patient states that his pain radiates down his neck and into his chest. He has a history of similar pain occurring about once a month and states that it is typically improved with drinking a carbonated beverage or water. His pain is occasionally improved with antacids as well. The patient's current pain has not resolved with carbonated beverages, water, or antacids. His pain has occurred nearly every day for the past two weeks. The patient also complains of black stool, and is scheduled for an endoscopy soon. He states that he has had a productive cough that is occasionally bloody, none recently. The patient takes aspirin, but denies using any other blood thinners. He has a history of COPD and a prostatectomy due to cancer. Prior colo from 2016 showed polyps and EGD from 2014 with large hiatal hernia, pathology negative for malignancy given prior hx of cao's esophagus, no PUD or active bleeding, no mention of gastritis. Source of History: patient Onset: Two weeks ago Position: jaw Quality: other ("shooting") Timing: intermittent Associated Symptoms: + cough (productive, occasionally bloody), + chest pain , + melena Review of Systems See HPI for pertinent positives & negatives. A total of 10 systems reviewed and were otherwise negative. 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 Surgical Problems: (1) History of lumbar surgery (2) History of right shoulder replacement (3) History of temporomandibular joint syndrome (4) Hx of transurethral resection of prostate Family History Cancer Heart disease Kidney disease Social History Smoking Status: Former Smoker Alcohol Use: none Marital Status: Occupation Status: retired Current/Historical Medications Scheduled Arformoterol Tartrate (Brovana), 15 MCG NEB BID Aspirin (Aspir-81), 81 MG PO QAM Budesonide (Inhalation) (Pulmicort Respules 0.5MG/2ML), 2 ML NEB BID Cholecalciferol (Vitamin D3), 2,000 INTER.UNIT PO DAILY Cyanocobalamin (Cyanocobalamin), 1,000 MCG IM MONTHLY Docusate Sodium (Stool Softener), 100 MG PO BID Ferrous Sulfate (Ferrous Sulfate), 325 MG PO QPM Home O2 Therapy (Oxygen), 3 LITERS NA HS Lisinopril (Lisinopril), 10 MG PO QAM Multiple Vitamins W/ Minerals (Centrum Silver Adult 50+), 1 TAB PO DAILY Omeprazole (Prilosec), 20 MG PO BID Scheduled PRN Albuterol Sulf (Proventil 0.083% 2.5MG/3ML), 2.5 MG NEB Q4H PRN for SOB/Wheezing Azithromycin (Zithromax), 250 MG PO UD PRN for COPD/Asthma Rescue Kit Ipratropium-Albuterol (Combivent Respimat), 1 PUFF INH QID PRN for Cough/ Wheezing Lorazepam (Lorazepam), 0.5 MG PO TID PRN for Anxiety Prednisone (Deltasone), 20 MG PO UD PRN for COPD/Asthma Rescue Kit Triamcinolone Acet (Aristocort 0.1%), 1 APPLN TOP UD PRN for Itching Valacyclovir Hcl (Valtrex), 500 MG PO BID PRN for Outbreaks Allergies Coded Allergies: Benzocaine (Verified Allergy, Severe, SLOUGHING OF SKIN, 05/08/17) Clindamycin (Verified Allergy, Intermediate, RASH, 05/08/17) Clobetasol (Verified Allergy, Unknown, ITCHING, 05/08/17) Doxycycline (Verified Allergy, Unknown, RASH, 05/08/17) Penicillins (Verified Allergy, Unknown, HIVES, 05/08/17) Phenylethylamine (Verified Allergy, Unknown, ITCHING, 05/08/17) Tea Tree Oil (Verified Allergy, Unknown, ITCHING, 05/08/17) Uncoded Allergies: CLEOCIN (Allergy, Unknown, SHUT KIDNEY DOWN, 05/05/15) Physical Exam Vital Signs Date Time Temp Pulse Resp B/P (MAP) Pulse Ox O2 Delivery O2 Flow Rate FiO2 05/08/17 09:45 59 18 159/89 95 05/08/17 09:13 58 18 138/81 96 Room Air 05/08/17 07:49 61 18 143/98 94 Room Air 05/08/17 07:48 96 Room Air 05/08/17 06:54 67 18 121/84 98 Room Air 05/08/17 05:18 36.6 79 22 145/95 94 Room Air Physical Exam GENERAL: alert, well appearing, well nourished, no distress, non-toxic EYE EXAM: normal conjunctiva, PERRL and EOM's grossly intact OROPHARYNX: no exudate, no erythema, lips, buccal mucosa, and tongue normal and mucous membranes are moist NECK: supple, no nuchal rigidity, no adenopathy, non-tender LUNGS: Decreased breath sounds. Clear to auscultation. Normal chest wall mechanics HEART: no murmurs, S1 normal and S2 normal ABDOMEN: abdomen soft, normo-active bowel sounds, no masses, no rebound or guarding. Epigastric and upper abdominal tenderness. BACK: Back is symmetrical on inspection and there is no deformity, no midline tenderness, no CVA tenderness. RECTAL: No fissures or hemorrhoids. Mucous with flecks of black stool. Heme negative on guaiac testing. SKIN: no rashes and no bruising UPPER EXTREMITIES: upper extremities are grossly normal. LOWER EXTREMITIES: No pitting edema. NEURO EXAM: Normal sensorium, cranial nerves II-XII grossly intact, normal speech, no gross weakness of arms, no gross weakness of legs. Medical Decision & Procedures ER Provider Diagnostic Interpretation: Radiology results have been interpreted by the radiologist and reviewed by me. CHEST ONE VIEW PORTABLE FINDINGS: Bibasilar subsegmental atelectasis is seen. Cardiac silhouette is mildly enlarged. There is atherosclerosis and tortuosity of the thoracic aorta. No pneumothorax, pleural effusion or focal airspace consolidation. Bilateral shoulder arthroplasties are noted. IMPRESSION: 1. No acute cardiopulmonary process. 2. Subsegmental bibasilar atelectasis The above report was generated using voice recognition software. It may contain grammatical, syntax or spelling errors. Electronically signed by: Trenton Orourke M.D. CT SCAN OF THE ABDOMEN AND PELVIS WITHOUT CONTRAST FINDINGS: Lower chest: There are dependent atelectatic changes. There is a small hiatal hernia Liver: The unenhanced liver is normal in size, contour, and attenuation. There is no intrahepatic biliary ductal dilatation. Gallbladder: Unremarkable. Spleen: Normal in size and attenuation. Pancreas: Unremarkable. Adrenal glands: Unremarkable. Kidneys: No renal, ureteral, or bladder calculi are visualized. The distal ureters and bladder are partially obscured due to artifact from bilateral hip arthroplasties. Bowel: There are no transition zones indicate bowel obstruction. The appendix appears normal. There is colonic diverticulosis. There is no acute diverticulitis. Portions of the rectum and sigmoid are obscured due to beam hardening artifact from hip arthroplasties. Peritoneum: There is no intraperitoneal free air or abdominal ascites. Vasculature: There is a 34 mm infrarenal abdominal aortic aneurysm. There is an indwelling IVC filter. Several struts protrude outside the IVC lumen. This finding remains unchanged from the prior study Adenopathy: None. Pelvic viscera: The pelvis is partially obscured due to artifact from bilateral hip arthroplasties. Skeletal structures: No destructive osseous lesions are seen. IMPRESSION: 1. No acute intra-abdominal or pelvic findings 2. No evidence of bowel obstruction. No evidence of free air 3. 34 mm infrarenal abdominal aortic aneurysm 4. No evidence of acute appendicitis. No evidence of acute diverticulitis 5. No renal, ureteral, or bladder calculi identified. Electronically signed by: Darius Muro M.D. Laboratory Results 05/08/17 05:43 Red Blood Count 3.97, Mean Corpuscular Volume 96.5, Mean Corpuscular Hemoglobin 33.0, Mean Corpuscular Hemoglobin Concent 34.2, Mean Platelet Volume 9.9, Neutrophils (%) (Auto) 66.8, Lymphocytes (%) (Auto) 19.7, Monocytes (%) (Auto) 10.8, Eosinophils (%) (Auto) 1.7, Basophils (%) (Auto) 0.5, Neutrophils # (Auto ) 4.35, Lymphocytes # (Auto) 1.28, Monocytes # (Auto) 0.70, Eosinophils # (Auto ) 0.11, Basophils # (Auto) 0.03 05/08/17 05:43 Test 05/08/17 05:43 8/7/17 05:51 05/08/17 08:45 White Blood Count 6.50 K/uL (4.8-10.8) Red Blood Count 3.97 M/uL (4.7-6.1) Hemoglobin 13.1 g/dL (14.0-18.0) Hematocrit 38.3 % (42-52) Mean Corpuscular Volume 96.5 fL (80-100) Mean Corpuscular Hemoglobin 33.0 pg (25-34) Mean Corpuscular Hemoglobin Concent 34.2 g/dl (32-36) Platelet Count 171 K/uL (130-400) Mean Platelet Volume 9.9 fL (7.4-10.4) Neutrophils (%) (Auto) 66.8 % Lymphocytes (%) (Auto) 19.7 % Monocytes (%) (Auto) 10.8 % Eosinophils (%) (Auto) 1.7 % Basophils (%) (Auto) 0.5 % Neutrophils # (Auto) 4.35 K/uL (1.4-6.5) Lymphocytes # (Auto) 1.28 K/uL (1.2-3.4) Monocytes # (Auto) 0.70 K/uL (0.11-0.59) Eosinophils # (Auto) 0.11 K/uL (0-0.5) Basophils # (Auto) 0.03 K/uL (0-0.2) RDW Standard Deviation 51.3 fL (36.4-46.3) RDW Coefficient of Variation 14.5 % (11.5-14.5) Immature Granulocyte % (Auto) 0.5 % Immature Granulocyte # (Auto) 0.03 K/uL (0.00-0.02) Prothrombin Time 11.4 SECONDS (9.0-12.0) Prothromb Time International Ratio 1.1 (0.9-1.1) Anion Gap 7.0 mmol/L (3-11) Est Creatinine Clear Calc Drug Dose 37.8 ml/min Estimated GFR () 37.5 Estimated GFR (Non- 32.4 BUN/Creatinine Ratio 8.5 (10-20) Calcium Level 9.1 mg/dl (8.5-10.1) Total Bilirubin 0.6 mg/dl (0.2-1) Aspartate Amino Transf (AST/SGOT) 22 U/L (15-37) Alanine Aminotransferase (ALT/SGPT) 28 U/L (12-78) Alkaline Phosphatase 98 U/L (45-117) Pro-B-Type Natriuretic Peptide 313 pg/ml (0-900) Total Protein 7.2 gm/dl (6.4-8.2) Albumin 3.7 gm/dl (3.4-5.0) Globulin 3.5 gm/dl (2.5-4.0) Albumin/Globulin Ratio 1.1 (0.9-2) Lipase 193 U/L (73-393) Bedside Lactic Acid Venous 1.88 mmol/L (0.90-1.70) Troponin I < 0.015 ng/ml (0-0.045) Laboratory results per my review. Medications Administered Medications (Trade) Dose Ordered Sig/Chata Route Start Time Stop Time Status Last Admin Dose Admin Pantoprazole Sodium 40 mg/ Syringe 10 ml @ 5 mls/min NOW ONCE IV 05/08/17 05:45 05/08/17 05:46 DC 05/08/17 06:04 5 MLS/MIN Sodium Chloride 1,000 ml @ 250 mls/hr Q4H STAT IV 05/08/17 06:13 05/08/17 10:12 DC 05/08/17 06:32 250 MLS/HR Al Hydroxide/Mg Hydroxide (Maalox Susp) 30 ml NOW STAT PO 05/08/17 07:07 05/08/17 07:08 DC 05/08/17 07:11 30 ML ECG Indication: chest pain Rate (beats per minute): 70 Rhythm: normal sinus Findings: no acute ischemic change, no ectopy, other (Normal axis. Normal intervals. ) ED Course 0525: The patient was evaluated in room B2. A complete history and physical exam was performed. 0545: Ordered Pantoprazole Sodium 40 mg/Syringe 10 mL @ 5 mL/min IV. 0613: Ordered Sodium Chloride 1000 ml @ 250 mls/hr IV. 1904: Upon reevaluation, the patient is feeling better. I discussed the findings and the treatment plan with the patient. Discussed admission. The patient would like to follow up as an outpatient. Medical Decision Differential diagnosis: Etiologies such as appendicitis, diverticulitis, PUD, biliary pathology, UTI, pancreatitis, obstruction, mesenteric ischemia, aortic pathology, infections, inflammatory bowel disease, renal colic, as well as others were entertained. I discussed with patient admission to perform serial troponin testing, and monitor H&H given description of melena and prior history of GI bleed and Cao's esophagus. Patient declined stating he would prefer to follow-up as an outpatient. Patient stated pain was improved at that point in time. Discussed the patient risks versus benefits of admission versus outpatient follow-up. He again declined admission. Patient was agreeable to wait for repeat troponin. Discussed with patient risk of cardiac etiology and GI pathology given history. Vital signs otherwise stable, first H&H negative and BUN not markedly elevated. Creatinine at baseline according to prior records. She and aware of chronic kidney disease. Patient signed out to Dr. Hassan to following repeat troponin and again offer patient admission. If he refused, discussed with patient signing out AGAINST MEDICAL ADVICE, this paperwork was filled out for Dr. Hassan and advance. Doubt bacteremia/sepsis, doubt occult vascular etiology, no evidence of STEMI, no active GI bleed on exam. Impression Primary Impression: Abdominal pain Additional Impressions: Chronic kidney disease Melena Chest pain Scribe Attestation The scribe's documentation has been prepared under my direction and personally reviewed by me in its entirety. I confirm that the note above accurately reflects all work, treatment, procedures, and medical decision making performed by me. Departure Information Dispostion Home / Self-Care Referrals Jacob Jones MD (PCP) Patient Instructions My [facility] Additional Instructions You are welcome to return to the ER at any time. By leaving against medical advice, you are accepting responsibility for your condition and any potential complications including gi bleed, heart attack, infection, stroke, termite renewal inspector disability or . Please take your medications as prescribed. Please avoid any acidic foods that could be irritating your stomach. Please call and follow-up immediately with your family doctor and your GI doctor. If you have any recurrent pain, develop trouble breathing, dizziness, vomiting, notice blood in your vomit or stool, or you have any other new concerns, please return to the emergency room. Please discuss your cough and sputum production with your family doctor if you occasionally notice blood. Problem Qualifiers Primary Impression: Abdominal pain Abdominal location: epigastric Qualified Codes: R10.13 - Epigastric pain Additional Impressions: Chronic kidney disease Chronic kidney disease stage: unspecified stage Qualified Codes: N18.9 - Chronic kidney disease, unspecified Chest pain Chest pain type: unspecified Qualified Codes: R07.9 - Chest pain, unspecified
[2017-05-08 07:48] VITALS: O2SAT 96
--- NOTE | 2017-05-08 09:39 | EMERGENCY ROOM VISIT NOTE ---
ED Visit Note Patient is a 72-year-old male who presents the ER seen and evaluated by Dr. Flower. His main complaint is epigastric abdominal pain which is worse following eating. He does have some radiation to his jaw intermittently when the pain worsens. He has extensive cardiac history. CT of the abdomen was obtained along with blood work and troponin as stated in her note. Patient was signed out to me as he refused admission awaiting for repeat troponin which was obtained and resulted negative. I updated this patient on 3 separate occasions. Recommended observation overnight given but he declined noting that he does not feel that this is heart. Following informed refusal of care patient was discharged follow-up with his PCP Dr. Jones. Discussed with Pt concerning signs and symptoms to watch out for. Pt was instructed to follow up with their PCP and discussed with the patient their option to return to the ED at anytime for persistent or worsening symptoms. The appropriate anticipatory guidance and out-patient management, including indications for return to the emergency department, were explained at length to the patient and understood.
[2017-05-08 09:45] VITALS: BP 159/89; PULSE 59; O2SAT 95
[2017-05-31] MEDS ORDERED: TRMCR130WC TOP (10:43)
[2017-05-31] MEDS ORDERED: IPRA1AER2 INH (10:53)
[2017-05-31] MEDS ORDERED: ASPI-232 PO (10:53)
[2017-05-31] MEDS ORDERED: ARFO15NE NEB (10:53)
[2017-05-31] MEDS ORDERED: OXGN (14:56)
[2017-05-31] MEDS ORDERED: OXYB5TAB74 PO (16:00)
[2017-05-31] MEDS ORDERED: VALA1TAB2 PO (16:00)
[2017-05-31] MEDS ORDERED: PREG100C PO (16:00)
[2017-05-31] MEDS ORDERED: MULT-506 PO (16:00)
[2017-05-31] MEDS ORDERED: SKINCRE34 TOP (16:02)
[2017-05-31] MEDS ORDERED: HYDR25SU20 PR (16:02)
[2017-05-31] MEDS ORDERED: SENNTAB13 PO (16:02)
[2017-05-31] MEDS ORDERED: FERR325T5 PO (17:28)
[2017-06-15] MEDS ORDERED: IMDSR60 PO (11:25)
[2017-06-15] MEDS ORDERED: NRV5 PO (11:25)
[2017-06-15] MEDS ORDERED: AMLO2.5T PO (11:36)
[2017-06-25] MEDS ORDERED: ALLO300T2 PO (07:00)
[2017-06-25] MEDS ORDERED: DOCU100C PO (07:00)
[2017-06-25] MEDS ORDERED: MICO12CR TOP (07:03)
[2017-06-25] MEDS ORDERED: ASPCH81X PO (07:03)
[2017-06-26] MEDS ORDERED: ZTHM250 PO (13:25)
== END 2017-05-08 09:46 | disposition left against medical advice (07) ==
LOC: C.EDB 05:14
DX: R10.13 Epigastric pain (principal); R07.9 Chest pain, unspecified; K92.1 Melena; Z79.82 Long term (current) use of aspirin; J44.9 Chronic obstructive pulmonary disease, unspecified; Z85.46 Personal history of malignant neoplasm of prostate; N18.3 Chronic kidney disease, stage 3 (moderate); Z90.79 Acquired absence of other genital organ(s); I25.10 Atherosclerotic heart disease of native coronary artery without angina pectoris; K21.9 Gastro-esophageal reflux disease without esophagitis; I12.9 Hypertensive chronic kidney disease with stage 1 through stage 4 chronic kidney disease, or unspecified chronic kidney disease; Z87.01 Personal history of pneumonia (recurrent); Z96.649 Presence of unspecified artificial hip joint; Z96.611 Presence of right artificial shoulder joint; Z80.9 Family history of malignant neoplasm, unspecified; Z84.1 Family history of disorders of kidney and ureter; Z87.891 Personal history of nicotine dependence; Z79.899 Other long term (current) drug therapy

== ENCOUNTER → 2017-05-16 | Day surgery (SDC) | payer OTHER, MEDICARE ==
[2017-05-15 13:26] VITALS: Ht 170.2 cm; Wt 100.0 kg
[~2017-05-16] VITALS: Ht 170.2 cm; Wt 100.0 kg
[~2017-05-16] MED LIST changes: +ACET-1101 PO; +ALBINS/ NEB; +ALL100 PO; +ALLO300T2 PO; +AMLO2.5T PO; +ARFO15NE NEB; +ASPCH81X PO; +ASPI-232 PO; +ATOR-26 PO; +ATV5X PO; -CEPH-571 PO; +CHOL2000 PO; +CYNI1000 IM; +DOCU100C PO; -DTR5 PO; +FAMO20TA11 PO; +FENTANYL CITRATE INJ 50 MCG/1 ML 2 ML VIAL ONE; +FERR325T5 PO; +HYDR25SU20 PR; +IMDSR60 PO; +IPRA1AER2 INH; +ISOS30TA35 PO; +LIDOCAINE HCL 2% 2 ML VIAL (20MG/ML) ONE; +LPR25 PO; +LPT40 PO; -LYR100 PO; +MICO12CR TOP; +MULT-506 PO; +NRV5 PO; +NTRGSL/4 UT; +OMEP20CA9 PO; +ONDA4TAB46 PO; +OXGN; +OXYB5TAB74 PO; +PANT20TA PO; +PLMINS NEB; +PLV75 PO; +PRED-603 PO; +PREG100C PO; +PROPOFOL IV EMULSION 10 MG/ML 20 ML VIAL IV ONE; +SENNTAB13 PO; +SKINCRE34 TOP; +TRMCR130WC TOP; -ULT50X PO; +VALA1TAB2 PO; +ZPAK PO; +ZTHM250 PO
[2017-05-16 09:22] VITALS: BP 137/76; PULSE 76; TEMP 36.5; O2SAT 96
== END | disposition home or self-care (01) ==
LOC: C.GI 08:46
PROVIDERS: ATTEND Internal Medicine
DX: R11.0 Nausea (principal); R10.13 Epigastric pain; K22.70 Barrett's esophagus without dysplasia; Z53.8 Procedure and treatment not carried out for other reasons; R68.84 Jaw pain

== ENCOUNTER 2017-05-18 14:32 | Inpatient (IN) | payer OTHER, MEDICARE ==
[~2017-05-18] VITALS: Ht 172.7 cm; Wt 101.0 kg
[~2017-05-18 14:32] MED LIST changes: -ACET-1101 PO; -ALBINS/ NEB; -ALL100 PO; -ALLO300T2 PO; -AMLO2.5T PO; -ARFO15NE NEB; -ASPCH81X PO; -ASPI-232 PO; -ATOR-26 PO; -ATV5X PO; -CHOL2000 PO; -CYNI1000 IM; -DOCU100C PO; -FAMO20TA11 PO; -FENTANYL CITRATE INJ 50 MCG/1 ML 2 ML VIAL ONE; -FERR325T5 PO; -HYDR25SU20 PR; -IMDSR60 PO; -IPRA1AER2 INH; -ISOS30TA35 PO; -LIDOCAINE HCL 2% 2 ML VIAL (20MG/ML) ONE; -LPR25 PO; -LPT40 PO; -MICO12CR TOP; -MULT-506 PO; -NRV5 PO; -NTRGSL/4 UT; -OMEP20CA9 PO; -ONDA4TAB46 PO; -OXGN; -OXYB5TAB74 PO; -PANT20TA PO; -PLMINS NEB; -PLV75 PO; -PRED-603 PO; -PREG100C PO; -PROPOFOL IV EMULSION 10 MG/ML 20 ML VIAL IV ONE; -SENNTAB13 PO; -SKINCRE34 TOP; -TRMCR130WC TOP; -VALA1TAB2 PO; -ZPAK PO; -ZTHM250 PO
[2017-05-18] MEDS ORDERED: ASPIRIN 81 MG CHEW PO STA (14:54)
[2017-05-18] MEDS: NITROGLYCERIN 0.4 MG SL PER TAB CHARGE SL PRN ×2 (15:16→15:59)
--- NOTE | 2017-05-18 15:17 | EMERGENCY ROOM VISIT NOTE ---
History Report prepared by Alice: Jennifer Douglas Under the Supervision of: Dr. Jamaal Parker M.D. First contact with patient: 14:46 Chief Complaint: CHEST PAIN Stated Complaint: CHEST PAIN History of Present Illness The patient is a 72 year old male who presents to the Emergency Room with complaints of intermittent chest pain starting a month ago. He notes that the pain is like a pressure. The patient states that when he gets the pain it is severe and shoots into his jaw. He states it also radiates into his abdomen. He report that when he drinks cold water or soda it goes away. He states when it first started it was a while between episodes, but now comes up to 3 times a day. The patient complains of fatigue and shortness of breath when lying flat. He notes that he didn't have an upper GI done that he was supposed to because of his symptoms. He notes he had a heart catheter done 40 years ago and a stress test done 13 years ago. He notes a history of COPD, prostate cancer, and an aortic aneurysm. Source of History: patient Onset: a month ago Position: chest Symptom Intensity: severe Quality: pressure Timing: intermittent Modifying Factors (Worsening): other (lying flat) Associated Symptoms: + SOB, + fatigue Review of Systems See HPI for pertinent positives and negatives. A total of ten systems were reviewed and were otherwise negative. 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 (18) Unstable angina Surgical Problems: (1) History of lumbar surgery (2) History of right shoulder replacement (3) History of temporomandibular joint syndrome (4) Hx of transurethral resection of prostate Family History Cancer Heart disease Kidney disease Social History Smoking Status: Current Some Day Smoker Alcohol Use: none Marital Status: Housing Status: lives with significant other Occupation Status: retired Current/Historical Medications Scheduled Arformoterol Tartrate (Brovana), 15 MCG NEB BID Aspirin (Aspir-81), 81 MG PO QAM Budesonide (Inhalation) (Pulmicort Respules 0.5MG/2ML), 2 ML NEB BID Cholecalciferol (Vitamin D3), 2,000 INTER.UNIT PO DAILY Cyanocobalamin (Cyanocobalamin), 1,000 MCG IM MONTHLY Eucerin (Eucerin), 1 APPLN TOP DAILY Ferrous Sulfate (Ferrous Sulfate), 325 MG PO QPM Home O2 Therapy (Oxygen), 3 LITERS NA HS Lisinopril (Lisinopril), 10 MG PO QAM Multivitamin (Multivitamin), 1 TAB PO DAILY Omeprazole (Prilosec), 20 MG PO BID Oxybutynin Chloride (Ditropan), 5 MG PO BID Pregabalin (Lyrica), 100 MG PO BID Valacyclovir Hcl (Valtrex), 1 GM PO DAILY Scheduled PRN Albuterol Sulf (Proventil 0.083% 2.5MG/3ML), 2.5 MG NEB Q4H PRN for SOB/Wheezing Azithromycin (Zithromax), 250 MG PO UD PRN for COPD/Asthma Rescue Kit Hydrocortisone Acetate (Rectal (Anusol-Hc), 25 MG DC BID PRN for Hemorrhoids Ipratropium-Albuterol (Combivent Respimat), 1 PUFF INH QID PRN for Cough/ Wheezing Lorazepam (Lorazepam), 0.5 MG PO TID PRN for Anxiety Prednisone (Deltasone), 20 MG PO UD PRN for COPD/Asthma Rescue Kit Sennosides-Docusate Sodium (Stool Softener Plus Laxat), 1 TAB PO DAILY PRN for Constipation Triamcinolone Acet (Aristocort 0.1%), 1 APPLN TOP UD PRN for Itching Allergies Coded Allergies: Benzocaine (Verified Allergy, Severe, SLOUGHING OF SKIN, 05/15/17) Clindamycin (Verified Allergy, Intermediate, RASH, 05/15/17) Clobetasol (Verified Allergy, Unknown, ITCHING, 05/15/17) Doxycycline (Verified Allergy, Unknown, RASH, 05/15/17) Penicillins (Verified Allergy, Unknown, HIVES, 05/15/17) Phenylethylamine (Verified Allergy, Unknown, ITCHING, 05/15/17) Tea Tree Oil (Verified Allergy, Unknown, ITCHING, 05/15/17) Uncoded Allergies: CLEOCIN (Allergy, Unknown, SHUT KIDNEY DOWN, 05/05/15) Physical Exam Vital Signs Date Time Temp Pulse Resp B/P (MAP) Pulse Ox O2 Delivery O2 Flow Rate FiO2 05/18/17 15:04 66 05/18/17 14:52 Room Air 05/18/17 14:41 36.9 66 18 148/91 96 Room Air Physical Exam GENERAL: Awake, alert, well-appearing, in no distress HENT: Normocephalic, atraumatic. Dry mucus membranes. EYES: Normal conjunctiva. Sclera non-icteric. NECK: Supple. No nuchal rigidity. FROM. No JVD. RESPIRATORY: Clear to auscultation. CARDIAC: Regular rate, normal rhythm. Extremities warm and well perfused. Pulses equal. ABDOMEN: Soft, non-distended. No tenderness to palpation. No rebound or guarding. No masses. RECTAL: Deferred. MUSCULOSKELETAL: Chest examination reveals no tenderness. The back is symmetrical on inspection without obvious abnormality. There is no CVA tenderness to palpation. No joint edema. LOWER EXTREMITIES: Calves are equal size bilaterally and non-tender. No edema. No discoloration. NEURO: Normal sensorium. No sensory or motor deficits noted. SKIN: No rash or jaundice noted. Medical Decision & Procedures ER Provider Diagnostic Interpretation: Radiology results as stated below per my review and radiologist interpretation: CHEST ONE VIEW PORTABLE CLINICAL HISTORY: CHEST PAIN pain COMPARISON STUDY: 05/08/2017 FINDINGS: Mild stable cardiomegaly. Lungs are clear. Diaphragms are smooth. IMPRESSION: No acute process. No change from the prior exam. The above report was generated using voice recognition software. It may contain grammatical, syntax or spelling errors. Electronically signed by: Vickey Arias M.D. 05/18/2017 3:36 PM Dictated Date/Time: 05/18/2017 3:36 PM Laboratory Results Test 05/18/17 15:17 Immature Granulocyte % (Auto) 0.3 % White Blood Count 8.89 K/uL (4.8-10.8) Red Blood Count 3.74 M/uL (4.7-6.1) Hemoglobin 12.7 g/dL (14.0-18.0) Hematocrit 35.7 % (42-52) Mean Corpuscular Volume 95.5 fL (80-100) Mean Corpuscular Hemoglobin 34.0 pg (25-34) Mean Corpuscular Hemoglobin Concent 35.6 g/dl (32-36) Platelet Count 185 K/uL (130-400) Mean Platelet Volume 9.6 fL (7.4-10.4) Neutrophils (%) (Auto) 71.1 % Lymphocytes (%) (Auto) 19.3 % Monocytes (%) (Auto) 8.4 % Eosinophils (%) (Auto) 0.8 % Basophils (%) (Auto) 0.1 % Neutrophils # (Auto) 6.31 K/uL (1.4-6.5) Lymphocytes # (Auto) 1.72 K/uL (1.2-3.4) Monocytes # (Auto) 0.75 K/uL (0.11-0.59) Eosinophils # (Auto) 0.07 K/uL (0-0.5) Basophils # (Auto) 0.01 K/uL (0-0.2) Immature Granulocyte # (Auto) 0.03 K/uL (0.00-0.02) Prothrombin Time 11.1 SECONDS (9.0-12.0) Prothromb Time International Ratio 1.0 (0.9-1.1) Total Bilirubin 0.4 mg/dl (0.2-1) Direct Bilirubin 0.1 mg/dl (0-0.2) Aspartate Amino Transf (AST/SGOT) 16 U/L (15-37) Alanine Aminotransferase (ALT/SGPT) 25 U/L (12-78) Alkaline Phosphatase 100 U/L (45-117) Pro-B-Type Natriuretic Peptide 370 pg/ml (0-900) Total Protein 6.9 gm/dl (6.4-8.2) Albumin 3.6 gm/dl (3.4-5.0) Lipase 161 U/L (73-393) Laboratory results reviewed by me Medications Administered Medications (Trade) Dose Ordered Sig/Chata Route Start Time Stop Time Status Last Admin Dose Admin Nitroglycerin (Nitrostat Tab) 0.4 mg Q5M PRN SL 05/18/17 15:00 05/18/17 19:15 DC 05/18/17 15:59 0.4 MG Aspirin (Aspirin Chew) 324 mg NOW STAT PO 05/18/17 14:54 05/18/17 14:56 DC 05/18/17 15:16 324 MG ECG Indication: chest pain Rate (beats per minute): 66 Rhythm: sinus rhythm Findings: PAC, other (normalization of inferior and lateral ST changes from earlier in the day) ED Course 1449: The patient was evaluated in room C7. A complete history and physical exam was performed. 1454: Ordered Aspirin 324 mg PO. 1500: Ordered Nitroglycerin 0.4 mg PRN SL pain. 1643: I reevaluated the patient and he is doing okay. 1644: Discussed the patient's case with Dr. Rodriguez. The patient will be evaluated for further treatment and disposition. Medical Decision I reviewed the patient's past medical history, medications, and the nursing notes as described above. Differential diagnoses include [place], pneumonia, CHF, bronchitis gastritis. Patient is a 72-year-old gentleman who presents to the emergency department from the cardiology clinic after being seen for symptoms of waxing and waning chest pain for the past several weeks, EKG concerning for dynamic changes sent to the emergency department per history of present illness. Arrival of the patient reports mild chest pressure but otherwise improved from previous. EKG with previous slurring of ST segments in inferior and anterior lateral leads normalized on EKG on arrival. However considering patient's symptoms and EKG likely represent dynamic changes, concerned for [place]. Dr. Rodriguez from cardiology, who was informed by clinic, at the bedside shortly after arrival. Considering patient's symptoms improved and troponin negative patient was admitted to telemetry for heparin drip, hydration to help improve creatinine. Likely will have cath tomorrow. Medication Reconcilliation Current Medication List: was personally reviewed by me Blood Pressure Screening Patient's blood pressure: Elevated blood pressure Blood pressure disposition: Elevated BP felt to be situational Consults Time Called: 1640 Consulting Physician: Dr. Rodriguez- Cardiology Returned Call: 1643 Discussed the patient's case with Dr. Rodriguez. The patient will be evaluated for further treatment and disposition. Impression Primary Impression: NSTEMI (non-ST elevated myocardial infarction) Scribe Attestation The scribe's documentation has been prepared under my direction and personally reviewed by me in its entirety. I confirm that the note above accurately reflects all work, treatment, procedures, and medical decision making performed by me. Departure Information Dispostion Being Evaluated By Hospitalist Referrals Jacob Jones MD (PCP) Patient Instructions My [facility]
[2017-05-18 15:34] LABS: BASO % 0.1 %; BASO ABS # 0.01 K/uL (0-0.2); COMPLETE YES; EOS % 0.8 %; HEMATOCRIT 35.7 % (42-52); IG% 0.3 %; LYMPH % 19.3 %; LYMPH ABS # 1.72 K/uL (1.2-3.4); MEAN CELL VOLUME 95.5 fL (80-100); MEAN CORPUSCULAR HGB CONC 35.6 g/dl (32-36); MEAN PLATELET VOLUME 9.6 fL (7.4-10.4); MONO % 8.4 %; NEUT % 71.1 %; PLATELET COUNT 185 K/uL (130-400); RED BLOOD COUNT 3.74 M/uL (4.7-6.1); WHITE BLOOD COUNT 8.89 K/uL (4.8-10.8)
--- NOTE | 2017-05-18 15:38 | DIAGNOSTIC IMAGING REPORT ---
CHEST ONE VIEW PORTABLE CLINICAL HISTORY: CHEST PAIN pain COMPARISON STUDY: 05/08/2017 FINDINGS: Mild stable cardiomegaly. Lungs are clear. Diaphragms are smooth. IMPRESSION: No acute process. No change from the prior exam. The above report was generated using voice recognition software. It may contain grammatical, syntax or spelling errors. Electronically signed by: Vickey Arias M.D. 05/18/2017 3:36 PM Dictated Date/Time: 05/18/2017 3:36 PM
[2017-05-18 15:46] LABS: PROTHROMBIN TIME (PATIENT) 11.1 SECONDS (9.0-12.0)
[2017-05-18 15:51] LABS: ALT/SGPT 25 U/L (12-78); BLOOD UREA NITROGEN 15 mg/dl (7-18); BUN/CREATININE RATIO 8.8 (10-20); CALCIUM 9.4 mg/dl (8.5-10.1); CARBON DIOXIDE 22 mmol/L (21-32); CHLORIDE 112 mmol/L (98-107); GLUCOSE 102 mg/dl (70-99); POTASSIUM 3.6 mmol/L (3.5-5.1); SODIUM 142 mmol/L (136-145)
--- NOTE | 2017-05-18 15:54 | History and Physical ---
History & Physical Date & Time of Service: May 18, 2017 at 15:38 Chief Complaint: Chest Pain Primary Care Physician: Jacob Jones MD History of Present Illness Source: patient Moody Lorenzo is a 72 year old male who presents to the emergency department as referred by Dr. Alphonso Casanova of our practice due to concerns of unstable angina. The patient has been having substernal chest pressure sensation on and off for the last several years and the last month his nose that is been happening more frequently. He describes it as a substernal burning sensation and often occurs as a 10/10 in intensity with radiation to his job. He notes it can happen either with rest or exertion but now is happening approximately 3 times per day. He has a separate chest discomfort that is more cephalad in his midsternal area which she describes as a pressure sensation. This again can occur with rest or exertion and radiates up to his jaw and also to his left shoulder. When it occurs at last for several minutes. Her last month his nose that is been associated with developing shortness of breath with lying flat. He has not noted any increased abdominal girth or lower extremity edema. The patient had been referred by his PCP for an EGD however when he presented for this on 05/16/17 it was canceled a cardiology consultation as an outpatient was scheduled. The patient was therefore seen today. He developed substernal chest pressure during his cardiology interview as an outpatient which prompted an EKG that was performed at [facility] on 05/18/17 at 1311 which revealed sinus bradycardia 56 bpm with first-degree AV block and inferior ST and lateral ST abnormality consistent with ischemia that was significant change compared to a recent emergency department EKG performed 10 days earlier. EKG was repeated at 1328 hrs. today and revealed interval improvement, was also repeated when he arrived to the emergency room and has normalized to his previous baseline. The patient had been referred to the emergency room for further inpatient evaluation. During my interview with him he was completely chest pain-free and was comfortable. He notes that he has a history of an an aortic aneurysm. Looking at his chart as an outpatient, I believe he is making reference to a mild enlargement in the diameter of his ascending thoracic aorta that was noted on a CT of the abdomen and pelvis in 2016 with measurement in the 3.-4 cm range at the level of the pulmonary artery. He notes having had a cardiac catheterization at [place] approximately 30 years ago did not apparently require revascularization. He has chronic kidney disease with a baseline creatinine of approximately 2 mg/ dL. He states his kidney dysfunction was associated with taking nonsteroidal anti-inflammatory medications to help with his temporomandibular joint pain. His most recent hospital stay dates back to March, when he was admitted for a right foot cellulitis. He still has some residual healing on the dorsal aspect of the right foot, and he states that podiatry is contemplating performing an operation involving the joint of the first toe. Past Medical/Surgical History PAST MEDICAL HISTORY: 1. Tobacco abuse. 2. COPD. 3. Abdominal aortic aneurysm measuring 3.3 cm. 4. Sepulveda esophagitis. 5. Prostate cancer. 6. Polyneuropathy. 7. Dyslipidemia. 8. Hypertension. 9. Chronic kidney disease stage 4 with a baseline creatinine around 2 milligrams per deciliter 10. Chart history of genital herpes infection PAST SURGICAL HISTORY: 1. IVC filter placement. 2. Total prostatectomy. 3. Bilateral shoulder replacements. 4. Bilateral hip replacements. 5. Cardiac catheterization in the 80s or 90s in [place] which he was told was normal. 6. Upper endoscopy. FAMILY HISTORY: Remarkable for father who suffered a fatal myocardial infarction at age 42. SOCIAL HISTORY: Patient is a long-term smoker, quit 5 years ago. Drinks occasional alcohol. Denies any recreational drug use. 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 He is . He lives at home with his . Family History Cancer Heart disease Kidney disease Social History Smoking Status: Current Some Day Smoker Marital Status: Occupational Status: retired Immunizations History of Influenza Vaccine: Yes Influenza Vaccine Date: Jun 28, 2011 History of Tetanus Vaccine?: Unknown History of Pneumococcal: Yes Pneumococcal Date: Sep 10, 2010 History of Hepatitis B Vaccine: Yes Allergies Coded Allergies: Benzocaine (Verified Allergy, Severe, SLOUGHING OF SKIN, 05/15/17) Clindamycin (Verified Allergy, Intermediate, RASH, 05/15/17) Clobetasol (Verified Allergy, Unknown, ITCHING, 05/15/17) Doxycycline (Verified Allergy, Unknown, RASH, 05/15/17) Penicillins (Verified Allergy, Unknown, HIVES, 05/15/17) Phenylethylamine (Verified Allergy, Unknown, ITCHING, 05/15/17) Tea Tree Oil (Verified Allergy, Unknown, ITCHING, 05/15/17) Uncoded Allergies: CLEOCIN (Allergy, Unknown, SHUT KIDNEY DOWN, 05/05/15) Home Medications Scheduled Arformoterol Tartrate (Brovana), 15 MCG NEB BID Aspirin (Aspir-81), 81 MG PO QAM Budesonide (Inhalation) (Pulmicort Respules 0.5MG/2ML), 2 ML NEB BID Cholecalciferol (Vitamin D3), 2,000 INTER.UNIT PO DAILY Cyanocobalamin (Cyanocobalamin), 1,000 MCG IM MONTHLY Docusate Sodium (Stool Softener), 100 MG PO BID Ferrous Sulfate (Ferrous Sulfate), 325 MG PO QPM Home O2 Therapy (Oxygen), 3 LITERS NA HS Lisinopril (Lisinopril), 10 MG PO QAM Multiple Vitamins W/ Minerals (Centrum Silver Adult 50+), 1 TAB PO DAILY Omeprazole (Prilosec), 20 MG PO BID Scheduled PRN Albuterol Sulf (Proventil 0.083% 2.5MG/3ML), 2.5 MG NEB Q4H PRN for SOB/Wheezing Azithromycin (Zithromax), 250 MG PO UD PRN for COPD/Asthma Rescue Kit Ipratropium-Albuterol (Combivent Respimat), 1 PUFF INH QID PRN for Cough/ Wheezing Lorazepam (Lorazepam), 0.5 MG PO TID PRN for Anxiety Prednisone (Deltasone), 20 MG PO UD PRN for COPD/Asthma Rescue Kit Triamcinolone Acet (Aristocort 0.1%), 1 APPLN TOP UD PRN for Itching Valacyclovir Hcl (Valtrex), 500 MG PO BID PRN for Outbreaks Review of Systems See above for pertinent positives & negatives. A total of 10 systems reviewed and were otherwise negative. Physical Exam Vital Signs Date Time Temp Pulse Resp B/P (MAP) Pulse Ox O2 Delivery O2 Flow Rate FiO2 05/18/17 15:04 66 05/18/17 14:52 Room Air 05/18/17 14:41 36.9 66 18 148/91 96 Room Air General Appearance: WD/WN, no apparent distress Neck: supple, no adenopathy, no JVD Cardiovascular: regular rate, rhythm, no edema, no gallop, no JVD, no murmur Abdomen/GI: non tender, soft Extremities/Musculoskelatal: normal inspection, no pedal edema Neurologic/Psych: no motor/sensory deficits, oriented x 3 Diagnostics Laboratory Results Results Past 24 Hours Test 05/18/17 15:17 Range/Units White Blood Count 8.89 4.8-10.8 K/uL Red Blood Count 3.74 4.7-6.1 M/uL Hemoglobin 12.7 14.0-18.0 g/dL Hematocrit 35.7 42-52 % Mean Corpuscular Volume 95.5 80-100 fL Mean Corpuscular Hemoglobin 34.0 25-34 pg Mean Corpuscular Hemoglobin Concent 35.6 32-36 g/dl Platelet Count 185 130-400 K/uL Mean Platelet Volume 9.6 7.4-10.4 fL Neutrophils (%) (Auto) 71.1 % Lymphocytes (%) (Auto) 19.3 % Monocytes (%) (Auto) 8.4 % Eosinophils (%) (Auto) 0.8 % Basophils (%) (Auto) 0.1 % Neutrophils # (Auto) 6.31 1.4-6.5 K/uL Lymphocytes # (Auto) 1.72 1.2-3.4 K/uL Monocytes # (Auto) 0.75 0.11-0.59 K/uL Eosinophils # (Auto) 0.07 0-0.5 K/uL Basophils # (Auto) 0.01 0-0.2 K/uL RDW Standard Deviation 51.1 36.4-46.3 fL RDW Coefficient of Variation 14.9 11.5-14.5 % Immature Granulocyte % (Auto) 0.3 % Immature Granulocyte # (Auto) 0.03 0.00-0.02 K/uL Impression Assessment and Plan Impression: 72-year-old male 1. Chest discomfort with dynamic ST changes on EKG concerning for ischemia today, presentation consistent with unstable angina 2. History of stage II-IV chronic kidney disease, baseline creatinine 2 mg/dL, GFR 30 mL per minute per meter squared 3. History of hypertension 4. Past history of cigarette smoker, current seldom cigar smoker 5. COPD 6. Dyslipidemia Plan: Stat labs were drawn when he arrived to the emergency room. His CBC has come back and stable findings are noted. Await chemistry panel. A stat echocardiogram has been requested and will be reviewed. He is pain-free and his EKG has returned to its previous baseline. Cardiac catheterization is recommended this admission. Patient was counseled regarding the risks of contrast regarding his kidneys, but given his chest pain symptoms I think cardiac catheterization is necessary. Patient is agreeable to proceeding. Timing cardiac catheterization will depend upon his kidney function , symptoms, and echocardiogram results. Nikos Rodriguez DO, FACC, FACOI Associate [employer]inist [employer] [facility], [facility]
[2017-05-18 15:56] LABS: ALKALINE PHOSPHATASE 100 U/L (45-117); AST/SGOT 16 U/L (15-37)
[2017-05-18] MEDS ORDERED: POTASSIUM CHLORIDE 10 MEQ TABCR PO STA (16:05)
[2017-05-18] MEDS ORDERED: ALBUTEROL 0.083% NEBU SOLN 3 ML VIAL INH PRN (16:15)
[2017-05-18] MEDS ORDERED: LORAZEPAM 0.5 MG TAB PO PRN (16:15)
[2017-05-18] MEDS ORDERED: DOCUSATE SODIUM/SENNA 50/8.6MG TAB PO PRN (16:15)
[2017-05-18] MEDS ORDERED: NITROGLYCERIN 0.4 MG SL PER TAB CHARGE SL PRN (16:15)
[2017-05-18] MEDS ORDERED: IPRATROPIUM BROMIDE/ALBUTEROL respimat INH INH PRN (16:15)
[2017-05-18] MEDS ORDERED: ATORVASTATIN 40 MG TAB PO ONE (16:21)
[2017-05-18 16:31] VITALS: BP 152/90; PULSE 58; TEMP 36.9; O2SAT 97; Ht 172.7 cm; Wt 101.0 kg
--- NOTE | 2017-05-18 16:32 | ECHOCARDIOGRAM REPORT ---
*NOTICE TO RECEIVING [employer] [employer] [facility] This information is strictly Confidential and protected under [place] law. [place] law prohibits you from making any further disclosure of this information unless further disclosure is expressly permitted by the written consent of the person to whom it pertains or is authorized by law. A general authorization for the release of medical or other information is not sufficient for this purpose. Hospital accepts no responsibility if the information is made available to any other person, INCLUDING THE PATIENT. Interpretation Summary * Name: JUAN TYSON Study Date: 05/18/2017 03:34 PM BP: 148/91 mmHg * Patient Location: ED HR: 66 * : 1945 (M/d/yyyy) Gender: Male Height: 68 in * Age: 72 yrs Ethnicity: CA Weight: 222 lb * Performed By: aRdha Mendez RDCS * * Reason For Study: UNSTABLE ANGINA * BSA: 2.1 m2 * -- Conclusions -- * The left ventricular wall motion is normal. * Left ventricular systolic function is normal. * There is mild concentric left ventricular hypertrophy. * The LV Ejection Fraction = 55-60%. * The right ventricle is normal in size and function. * Grade I diastolic dysfunction, (abnormal relaxation pattern). * There is no significant valvular heart disease. Procedure Details * A complete two-dimensional transthoracic echocardiogram was performed (2D, M-mode, Doppler and color flow Doppler). * A contrast injection of Definity was performed to improve assessment of LV function. * Contrast was injected into an intravenous site in the left arm. * One vial of Definity ultrasound contrast was diluted in normal saline to a total volume of 10 ml. A total of '2' ml of solution was administered during imaging. * Lot # [id number] of Definity utilized for procedure. * Expiration date MAY 19. * The attending nurse who injected the contrast agent was TERE LOPEZ RN. Left Ventricle * The left ventricle is normal in size. * There is mild concentric left ventricular hypertrophy. * Ejection Fraction = 55-60%. * Left ventricular systolic function is normal. * The left ventricular wall motion is normal. Right Ventricle * The right ventricle is normal in size and function. Atria * The left atrial size is normal. * Right atrial size is normal. * There is no evidence of atrial septal defect, but resolution does not allow assessment for a patent foramen ovale. Mitral Valve * The mitral valve is normal. * There is no mitral valve stenosis. * Significant mitral regurgitation is absent. Tricuspid Valve * The tricuspid valve is normal. * There is no tricuspid stenosis. * Significant tricuspid regurgitation is absent. * Doppler findings do not suggest pulmonary hypertension. Aortic Valve * The aortic valve was not well visualized. Unable to determine the number of aortic valve cusps. The Doppler evaluation was adequate. * Aortic stenosis is absent. * There is no significant aortic regurgitation. Pulmonic Valve * The pulmonary valve is not well seen, but the Doppler examination is normal without significant regurgitation or stenosis. Great Vessels * The aortic root and proximal ascending aorta are normal sized. Pericardium/Pleural * There is no pericardial effusion. Great Vessels * Normal inferior vena cava diameter and respiratory variation suggests normal central venous pressure. Left Ventricular Diastolic Function * Grade I diastolic dysfunction, (abnormal relaxation pattern). MMode 2D Measurements and Calculations IVSd 1.7 cm IVSs 2.3 cm LVIDd 5.3 cm LVIDs 3.8 cm LVPWd 1.6 cm LVPWs 2.2 cm IVS/LVPW 1.1 FS 28.9 % EDV(Teich) 134.6 ml ESV(Teich) 60.5 ml EF(Teich) 55.1 % EDV(cubed) 147.9 ml ESV(cubed) 53.2 ml EF(cubed) 64.0 % % IVS thick 38.8 % % LVPW thick 40.0 % LV mass(C)d 397.1 grams LV mass(C)dI 185.9 grams/m\S\2 LV mass(C)s 432.8 grams LV mass(C)sI 202.6 grams/m\S\2 SV(Teich) 74.2 ml SI(Teich) 34.7 ml/m\S\2 SV(cubed) 94.7 ml SI(cubed) 44.3 ml/m\S\2 LVAd ap4 31.7 cm\S\2 LVLd ap4 8.9 cm EDV(MOD-sp4) 98.5 ml EDV(sp4-el) 96.3 ml LVAs ap4 17.8 cm\S\2 LVLs ap4 7.1 cm ESV(MOD-sp4) 41.0 ml ESV(sp4-el) 37.9 ml EF(MOD-sp4) 58.4 % EF(sp4-el) 60.6 % LVAd ap2 24.7 cm\S\2 LVLd ap2 8.5 cm EDV(MOD-sp2) 62.8 ml EDV(sp2-el) 61.3 ml LVAs ap2 14.9 cm\S\2 LVLs ap2 7.1 cm ESV(MOD-sp2) 30.0 ml ESV(sp2-el) 26.7 ml EF(MOD-sp2) 52.3 % EF(sp2-el) 56.4 % LVLd %diff -4.67 % EDV(MOD-bp) 80.3 ml LVLs %diff 0.48 % ESV(MOD-bp) 35.2 ml EF(MOD-bp) 56.2 % SV(MOD-sp4) 57.6 ml SI(MOD-sp4) 26.9 ml/m\S\2 SV(MOD-sp2) 32.9 ml SI(MOD-sp2) 15.4 ml/m\S\2 SV(MOD-bp) 45.1 ml SI(MOD-bp) 21.1 ml/m\S\2 SV(sp4-el) 58.4 ml SI(sp4-el) 27.3 ml/m\S\2 SV(sp2-el) 34.6 ml SI(sp2-el) 16.2 ml/m\S\2 Doppler Measurements and Calculations MV E max jhon 36.2 cm/sec MV A max jhon 71.7 cm/sec MV E/A 0.51 MV dec time 0.40 sec Ao V2 max 92.1 cm/sec Ao max PG 3.4 mmHg Ao max PG (full) 1.7 mmHg LV V1 max PG 1.7 mmHg LV V1 max 64.9 cm/sec
[2017-05-18] MEDS ORDERED: HEPARIN 25,000 UNIT/500ML D5W 500 ML IV PRN (16:45)
[2017-05-18] MEDS ORDERED: HEPARIN IV BOLUS 7,000 UNIT in SYRINGE 0 ML IV ONE (17:30)
[2017-05-18 19:24] VITALS: BP 158/92; PULSE 56; TEMP 36.5; O2SAT 94
[2017-05-18] MEDS: SODIUM CHLORIDE 0.9% 1000ML 1,000 ML IV SCH (19:30)
[2017-05-18 20:00] VITALS: O2SAT 94
[2017-05-18] MEDS: OXYBUTYNIN CHLORIDE 5 MG TAB PO SCH (20:38)
[2017-05-18] MEDS: PREGABALIN 100 MG CAP PO SCH (20:46)
[2017-05-18] MEDS: NITROGLYCERIN 2% OINTMENT 30GM TUBE EXT SCH (20:47)
[2017-05-18] MEDS ORDERED: FERROUS SULFATE 325 MG TAB PO SCH (21:00)
[2017-05-18] MEDS: ARFORMOTEROL TART 15MCG/2ML VIAL INH SCH (21:02)
[2017-05-18] MEDS: BUDESONIDE 0.5 MG/2 ML VIAL (PULMICORT) INH SCH (21:02)
[2017-05-18 21:13] VITALS: PULSE 71; O2SAT 96
[2017-05-18 22:50] LABS: CKMB/CK RATIO 2.5 (0-3.0)
[2017-05-18 23:48] VITALS: BP 119/66; PULSE 54; TEMP 36.6; O2SAT 91
[2017-05-18 23:48] LABS: PARTIAL THROMBOPLASTIN RATIO 3.1
[2017-05-19] VITALS (13 sets, daily range): BP systolic 130–164; BP diastolic 77–94; PULSE 47–68; TEMP 36.3–36.9; O2SAT 87–96
[2017-05-19] MEDS: NITROGLYCERIN 2% OINTMENT 30GM TUBE EXT SCH ×3 (04:10→14:30)
[2017-05-19 04:52] LABS: CKMB/CK RATIO 2.9 (0-3.0)
[2017-05-19 06:32] LABS: HEMATOCRIT 36.8 % (42-52); MEAN CELL VOLUME 96.3 fL (80-100); MEAN CORPUSCULAR HEMOGLOBIN 33.5 pg (25-34); MEAN CORPUSCULAR HGB CONC 34.8 g/dl (32-36); MEAN PLATELET VOLUME 9.9 fL (7.4-10.4); PLATELET COUNT 176 K/uL (130-400); RED BLOOD COUNT 3.82 M/uL (4.7-6.1); WHITE BLOOD COUNT 8.58 K/uL (4.8-10.8)
[2017-05-19] MEDS: SODIUM CHLORIDE 0.9% 1000ML 1,000 ML IV SCH (06:35)
[2017-05-19 06:45] LABS: PARTIAL THROMBOPLASTIN RATIO 2.5
[2017-05-19] MEDS ORDERED: ASPIRIN 81 MG CHEW PO SCH (07:00)
[2017-05-19] MEDS: BUDESONIDE 0.5 MG/2 ML VIAL (PULMICORT) INH SCH (07:44)
[2017-05-19] MEDS: ARFORMOTEROL TART 15MCG/2ML VIAL INH SCH (07:44)
[2017-05-19] MEDS: PREGABALIN 100 MG CAP PO SCH (07:50)
--- NOTE | 2017-05-19 08:30 | Cardiology Follow-Up ---
Subjective General Date of Service: May 19, 2017. Pt evaluation today including: conversation w/ patient, physical exam, chart review, lab review, review of studies, review of inpatient medication list History of Present Illness The patient is a 72 year old male seen in follow-up. Reports episode of chest pressure overnight. Repeat ECG performed exam within normal limits. Cardec enzymes are undetectable. Resting 2-D transthoracic echo within normal limits. Currently patient resting comfortably. Offers no other complaints at this time. Allergies Coded Allergies: Benzocaine (Verified Allergy, Severe, SLOUGHING OF SKIN, 05/15/17) Clindamycin (Verified Allergy, Intermediate, RASH, 05/15/17) Clobetasol (Verified Allergy, Unknown, ITCHING, 05/15/17) Doxycycline (Verified Allergy, Unknown, RASH, 05/15/17) Penicillins (Verified Allergy, Unknown, HIVES, 05/15/17) Phenylethylamine (Verified Allergy, Unknown, ITCHING, 05/15/17) Tea Tree Oil (Verified Allergy, Unknown, ITCHING, 05/15/17) Uncoded Allergies: CLEOCIN (Allergy, Unknown, SHUT KIDNEY DOWN, 05/05/15) Social History Smoking Status: Current Every Day Smoker Hx Tobacco Use In Past Year?: Yes Hx Alcohol Use - Type And Amou: Yes Hx Substance Use - Type And Am: No Problem List Medical Problems: (1) Cellulitis of foot, right Status: Acute (2) Cellulitis of right foot Status: Acute (3) Cellulitis of right foot Status: Acute (4) Chest pain Status: Acute (5) Chronic kidney disease Status: Acute (6) Failure of outpatient treatment Status: Acute (7) Melena Status: Acute Review of Systems Respiratory: No cough, No wheezing, No shortness of breath, No dyspnea on exertion, No dyspnea at rest, No hemoptysis Cardiac: + chest pain, No orthopnea, No PND, No edema, No claudication, No palpitations Physical Exam Vital Signs Last Vital Signs Documentation Date Time Temp Pulse Resp B/P (MAP) Pulse Ox O2 Delivery O2 Flow Rate FiO2 05/19/17 07:45 68 16 96 Room Air 05/19/17 07:42 36.3 155/87 (109) 05/19/17 00:00 3.0 Physical Exam Constitutional: General Apperance: heathly-appearing, well-nourished Level of Distress: NAD Ambulation: ambulating normally Head: normocephalic Neck: supple, trachea midline Lungs: Auscultation: breath sounds normal, no wheezing, no rales/crackles, no rhonchi Cardiovascular: Heart Auscultation: RRR, normal S1, normal S2, no murmurs Peripheral Pulses: Radial Pulse: normal on the left, normal on the right Femoral Pulse: normal on the right Dorsalis Pedis Pulse: normal on the right Abdomen: Bowel Sounds: normal Inspection & Palpation: soft, non-distended, no tenderness, guarding & rebound Extremities: no cyanosis, no edema, no clubbing, no ulcers Neurologic: Gait & Station: pertinent finding (no focal motor deficit) Cranial Nerves: grossly intact Assessment and Plan Assessment and Plan Imp: 1. 72-year-old male with chest discomfort and transient ECG changes concerning for ischemia. Cardiac enzymes are negative. ECG has returned to baseline this a.m. There are no regional wall motion at amount is on resting 2-D transthoracic echo. 2. History of stage II-IV chronic kidney disease, baseline creatinine 2 mg/dL, GFR 30 mL per minute per meter squared 3. History of hypertension 4. Past history of cigarette smoker, current seldom cigar smoker 5. COPD 6. Dyslipidemia Plan: I long discussion with the patient regarding his chest discomfort and transient ECG changes. Cardiac catheterization recommended for definitive diagnosis. The risks, benefits, and alternatives to catheterization were discussed at length. Patient is agreeable to diagnostic procedure as well as percutaneous intervention if indicated. Await result of repeat renal function panel this a.m. Further recommendations pending review of cardiac catheterization. Laboratory Results Last 24 Hours Test 05/18/17 15:17 05/18/17 22:11 05/18/17 23:17 05/19/17 04:05 White Blood Count 8.89 K/uL Red Blood Count 3.74 M/uL Hemoglobin 12.7 g/dL Hematocrit 35.7 % Mean Corpuscular Volume 95.5 fL Mean Corpuscular Hemoglobin 34.0 pg Mean Corpuscular Hemoglobin Concent 35.6 g/dl Platelet Count 185 K/uL Mean Platelet Volume 9.6 fL Neutrophils (%) (Auto) 71.1 % Lymphocytes (%) (Auto) 19.3 % Monocytes (%) (Auto) 8.4 % Eosinophils (%) (Auto) 0.8 % Basophils (%) (Auto) 0.1 % Neutrophils # (Auto) 6.31 K/uL Lymphocytes # (Auto) 1.72 K/uL Monocytes # (Auto) 0.75 K/uL Eosinophils # (Auto) 0.07 K/uL Basophils # (Auto) 0.01 K/uL RDW Standard Deviation 51.1 fL RDW Coefficient of Variation 14.9 % Immature Granulocyte % (Auto) 0.3 % Immature Granulocyte # (Auto) 0.03 K/uL Prothrombin Time 11.1 SECONDS Prothromb Time International Ratio 1.0 Sodium Level 142 mmol/L Potassium Level 3.6 mmol/L Chloride Level 112 mmol/L Carbon Dioxide Level 22 mmol/L Anion Gap 8.0 mmol/L Blood Urea Nitrogen 15 mg/dl Creatinine 1.70 mg/dl Est Creatinine Clear Calc Drug Dose 45.2 ml/min Estimated GFR () 45.7 Estimated GFR (Non- 39.4 BUN/Creatinine Ratio 8.8 Random Glucose 102 mg/dl Calcium Level 9.4 mg/dl Total Bilirubin 0.4 mg/dl Direct Bilirubin 0.1 mg/dl Aspartate Amino Transf (AST/SGOT) 16 U/L Alanine Aminotransferase (ALT/SGPT) 25 U/L Alkaline Phosphatase 100 U/L Troponin I < 0.015 ng/ml < 0.015 ng/ml < 0.015 ng/ml Pro-B-Type Natriuretic Peptide 370 pg/ml Total Protein 6.9 gm/dl Albumin 3.6 gm/dl Lipase 161 U/L Total Creatine Kinase 107 U/L 87 U/L Creatine Kinase MB 2.7 ng/ml 2.5 ng/ml Creatine Kinase MB Ratio 2.5 2.9 Activated Partial Thromboplast Time 80.0 SECONDS Partial Thromboplastin Ratio 3.1 Test 05/19/17 06:19 05/19/17 08:18 White Blood Count 8.58 K/uL Red Blood Count 3.82 M/uL Hemoglobin 12.8 g/dL Hematocrit 36.8 % Mean Corpuscular Volume 96.3 fL Mean Corpuscular Hemoglobin 33.5 pg Mean Corpuscular Hemoglobin Concent 34.8 g/dl RDW Standard Deviation 53.0 fL RDW Coefficient of Variation 15.2 % Platelet Count 176 K/uL Mean Platelet Volume 9.9 fL Activated Partial Thromboplast Time 65.4 SECONDS Partial Thromboplastin Ratio 2.5
[2017-05-19 08:56] LABS: BUN/CREATININE RATIO 10.2 (10-20); CALCIUM 8.8 mg/dl (8.5-10.1); CREATININE 1.6 mg/dl (0.60-1.40)
[2017-05-19] MEDS ORDERED: MULTIVITAMIN TAB PO SCH (09:00)
[2017-05-19] MEDS ORDERED: ATORVASTATIN 40 MG TAB PO SCH (09:00)
[2017-05-19] MEDS ORDERED: ASPIRIN 81 MG ECTAB PO SCH (09:00)
[2017-05-19] MEDS: OXYBUTYNIN CHLORIDE 5 MG TAB PO SCH (09:18)
--- NOTE | 2017-05-19 09:55 | Clinical Documentation Query ---
CLINICAL DOCUMENTATION QUERY 72 year old male who presents to the Emergency Room with complaints of intermittent chest pain In your clinical opinion is this patient being managed for: ( x ) Presumed CAD causing Angina treated with diagnostic catheterization ( ) Other explanation of clinical findings (Please Explain) ( ) Unable to determine (Please Define) ( ) Need to Discuss ( ) Not Agree The medical record reflects the following clinical findings, treatment, and risk factors. Clinical Indicators: Chest pain, age, SOB, ECG changes Treatment: Heparin, Nitro, O2, Telemetry, Cardiology consult, scheduled for cardiac cath Risk Factors: Age, COPD, HTN, DM, overweight Please clarify and document your clinical opinion in the progress notes and discharge summary. Terms such as "probable", "suspected", "likely", "questionable", "possible", or "still to be ruled out" are acceptable. IF IN AGREEMENT, YOU MUST DOCUMENT ABOVE DIAGNOSTIC STATEMENT IN DAILY PROGRESS NOTES AND DISCHARGE SUMMARY. This document is not part of the patient's record. Thank You, Jewell Flores RN [phone]
[2017-05-19] MEDS ORDERED: MIDAZOLAM HCL 1 MG/ML 2ML VIAL ONE (10:37)
[2017-05-19] MEDS ORDERED: FENTANYL CITRATE INJ 50 MCG/1 ML 2 ML VIAL ONE (10:37)
[2017-05-19] MEDS ORDERED: ACETAMINOPHEN 325 MG TAB PO PRN (11:30)
[2017-05-19] MEDS ORDERED: SODIUM CHLORIDE 0.9% 1000ML 250 ML IV PRN (11:30)
[2017-05-19] MEDS ORDERED: ATROPINE SULFATE 0.1 MG/ML 5ML SYR IV PRN (11:30)
[2017-05-19] MEDS ORDERED: ONDANSETRON INJ 2 MG/ML 2 ML VIAL IV PRN (11:30)
--- NOTE | 2017-05-19 11:44 | Cardiac Catheterization ---
Procedure Note Procedure Date May 19, 2017. Pre-Procedure Diagnosis Acute Coronary Syndrome, Angina AUC Score 8 Post-Procedure Diagnosis Severe CAD Procedure(s) Performed Coronary Angiography, Left Heart Cath Shed Boss Dr. 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 Start 1050, End 1130. Sedation RN: Champ Chavez Procedural Complication(s) None Disposition PCU ACC Data Cardiac Status Clinical evaluation leading to the procedure CAD Presntation: Unstable angina Anginal Classification: CCS IV Heart Failure: No Cardiogenic Shock w/in 24Hrs: No Cardiac Arrest w/in 24Hrs: No Imaging studies past 6 months: No Stress studies past 6 months: No Coronary Anatomy Dominant: Right Left Main (% Stenosis): Distal (20% , moderate calcification extending into the proximal LAD) LAD (% Stenosis): Proximal (30% moderate calcification), Mid (70%), Distal (30% ) D1 (% Stenosis): Ostial (4 small (1mm) diagonal vessels with mild luminal irregularities (10%)) Circumflex (% Stenosis): Ostial (small nondominant vessel with mild luminal irregularities, 10%) RCA (% Stenosis): Proximal (90% , severe calcification), Mid (30%), Distal (20% ) R PDA (% Stenosis): Ostial (mild luminal irregularities (10%)) R PL1 (% Stenosis): Normal R PL2 (% Stenosis): Normal Ramus (% Stenosis): Ostial (large vessel with mild luminal irregularities 10%, birfurcates proximately giving rise to large mariginal branch with luminal irregularities 10-20%), Mid (20%) Diagnostic Status: Urgent Closure Device Percutaneous Entry Location: Femoral Closure Device: none - manual hold (unable to advance mynx secondary to vascular calcification) Intraprocedure Events Significant Dissection: No Perforation: No
--- NOTE | 2017-05-19 11:46 | Procedure Note ---
Pre-Mod Sedation Assessment General Date of Moderate Sedation: May 19, 2017. Vital Signs: Vital Signs Past 12 Hours Date Time Temp Pulse Resp B/P (MAP) Pulse Ox O2 Delivery O2 Flow Rate FiO2 05/19/17 08:00 96 Room Air 05/19/17 07:45 68 16 96 Room Air 05/19/17 07:42 36.3 57 18 155/87 (109) 96 Room Air 05/19/17 04:00 36.9 55 18 130/77 (94) 93 Room Air 05/19/17 00:00 Nasal Cannula 3.0 05/18/17 23:48 36.6 54 16 119/66 (83) 91 Room Air Review Cardiovascular: regular rate, rhythm, no edema Abdomen: normal bowel sounds, non tender, soft Lungs: chest non-tender, lungs clear, normal breath sounds Pre-Sedation Airway Assessment Oral Cavity: Dentures Smoking Status: Current Every Day Smoker Mallampati Classification: Class III Procedure Planning Contraindications-for Mod Sed: None Yes Notes The planned sedation has been discussed with the patient and consent obtained. I have identified the patient, determined the appropriateness of sedation and have assessed the patient immediately prior to the procedure. All medicine(s) and interventions are by my order.
--- NOTE | 2017-05-19 11:46 | Procedure Note ---
Post-Mod Sedation Assessment General Date of Moderate Sedation May 19, 2017. Vital Signs: Vital Signs Past 12 Hours Date Time Temp Pulse Resp B/P (MAP) Pulse Ox O2 Delivery O2 Flow Rate FiO2 05/19/17 08:00 96 Room Air 05/19/17 07:45 68 16 96 Room Air 05/19/17 07:42 36.3 57 18 155/87 (109) 96 Room Air 05/19/17 04:00 36.9 55 18 130/77 (94) 93 Room Air 05/19/17 00:00 Nasal Cannula 3.0 05/18/17 23:48 36.6 54 16 119/66 (83) 91 Room Air Review - Discharge Criteria Vital Signs Stable: Yes Alert/Oriented/Conversant: Yes Returned to Baseline Mental St: Yes Nausea Absent/Minimal: Yes Pain/Discomfort/Absent/Minimal: Yes Normal/Baseline Respirations: Yes Active Bleeding?: No Pt Received D/C Instructions: N/A Prescriptions Given: None Specific Proced. D/C Criteria Distal Pulses Present (Cardiac: Yes Groin site assessed-Card Cath: Yes Voided Prior To Discharge: N/A Discharged Patients Adult Escort/Transportation: N/A
[2017-05-19] MEDS ORDERED: NITROGLYCERIN 0.4 MG SL PER TAB CHARGE SL STA (12:43)
[2017-05-19 13:11] LABS: CKMB/CK RATIO 2.7 (0-3.0)
--- NOTE | 2017-05-19 13:51 | Discharge Summary ---
Discharge Summary Date of Service May 19, 2017. 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 Medication Reconciliation Continued Medications: Albuterol Sulf (Proventil 0.083% 2.5MG/3ML) 2.5 Mg/3 Ml Nebu 2.5 MG NEB Q4H PRN for SOB/Wheezing Arformoterol Tartrate (Brovana) 15 Mcg/2 Ml Neb 15 MCG NEB BID MIX WITH BEDESONIDE Aspirin (Aspir-81) 81 Mg Tab 81 MG PO QAM Azithromycin (Zithromax) 250 Mg Tab 250 MG PO UD PRN for COPD/Asthma Rescue Kit, #6 TAB RESCUE KIT FOLLOWS: TAKE 2 TABLETS ON FIRST DAY THEN 1 TABLET DAILY FOR FOUR DAYS Budesonide (Inhalation) (Pulmicort Respules 0.5MG/2ML) 0.5 Mg/2 Ml Yareli 2 ML NEB BID, EA Cholecalciferol (Vitamin D3) 2,000 Unit Cap 2000 INTER.UNIT PO DAILY Cyanocobalamin (Cyanocobalamin) 1,000 Mcg/Ml Inj 1000 MCG IM MONTHLY Eucerin (Eucerin) Cre 1 APPLN TOP DAILY Ferrous Sulfate (Ferrous Sulfate) 325 Mg Tab 325 MG PO QPM Home O2 Therapy (Oxygen) Gas 3 LITERS NA HS Hydrocortisone Acetate (Rectal (Anusol-Hc) 25 Mg Sup 25 MG PA BID PRN for Hemorrhoids Ipratropium-Albuterol (Combivent Respimat) 1 Aer Aer 1 PUFF INH QID PRN for Cough/Wheezing Lisinopril (Lisinopril) 10 Mg Tab 10 MG PO QAM Multivitamin (Multivitamin) Tab 1 TAB PO DAILY Omeprazole (Prilosec) 20 Mg Cap 20 MG PO BID Oxybutynin Chloride (Ditropan) 5 Mg Tab 5 MG PO BID Prednisone (Deltasone) 20 Mg Tab 20 MG PO UD PRN for COPD/Asthma Rescue Kit TAKE 2 TABLETS (40 MG) DAILY FOR 5 DAYS Pregabalin (Lyrica) 100 Mg Cap 100 MG PO BID Sennosides-Docusate Sodium (Stool Softener Plus Laxat) 1 Tab Tab 1 TAB PO DAILY PRN for Constipation Triamcinolone Acet (Aristocort 0.1%) 90 Appln/30 Gm Cr 1 APPLN TOP UD PRN for Itching APPLY TWICE DAILY IF NEEDED FOR ITCHY LEGS Valacyclovir Hcl (Valtrex) 1 Gm Tab 1 GM PO DAILY Admission Information HPI (per Admitting provider): Moody Lorenzo is a 72 year old male who presents to the emergency department as referred by Dr. Alphonso Casanova of our practice due to concerns of unstable angina. The patient has been having substernal chest pressure sensation on and off for the last several years and the last month his nose that is been happening more frequently. He describes it as a substernal burning sensation and often occurs as a 10/10 in intensity with radiation to his job. He notes it can happen either with rest or exertion but now is happening approximately 3 times per day. He has a separate chest discomfort that is more cephalad in his midsternal area which she describes as a pressure sensation. This again can occur with rest or exertion and radiates up to his jaw and also to his left shoulder. When it occurs at last for several minutes. Her last month his nose that is been associated with developing shortness of breath with lying flat. He has not noted any increased abdominal girth or lower extremity edema. The patient had been referred by his PCP for an EGD however when he presented for this on 05/16/17 it was canceled a cardiology consultation as an outpatient was scheduled. The patient was therefore seen today. He developed substernal chest pressure during his cardiology interview as an outpatient which prompted an EKG that was performed at [facility] on 05/18/17 at 1311 which revealed sinus bradycardia 56 bpm with first-degree AV block and inferior ST and lateral ST abnormality consistent with ischemia that was significant change compared to a recent emergency department EKG performed 10 days earlier. EKG was repeated at 1328 hrs. today and revealed interval improvement, was also repeated when he arrived to the emergency room and has normalized to his previous baseline. The patient had been referred to the emergency room for further inpatient evaluation. During my interview with him he was completely chest pain-free and was comfortable. He notes that he has a history of an an aortic aneurysm. Looking at his chart as an outpatient, I believe he is making reference to a mild enlargement in the diameter of his ascending thoracic aorta that was noted on a CT of the abdomen and pelvis in 2016 with measurement in the 3.-4 cm range at the level of the pulmonary artery. He notes having had a cardiac catheterization at [place] approximately 30 years ago did not apparently require revascularization. He has chronic kidney disease with a baseline creatinine of approximately 2 mg/ dL. He states his kidney dysfunction was associated with taking nonsteroidal anti-inflammatory medications to help with his temporomandibular joint pain. His most recent hospital stay dates back to March, when he was admitted for a right foot cellulitis. He still has some residual healing on the dorsal aspect of the right foot, and he states that podiatry is contemplating performing an operation involving the joint of the first toe. Physical Exam (per Admitting): General Appearance: WD/WN, no apparent distress Neck: supple, no adenopathy, no JVD Cardiovascular: regular rate, rhythm, no edema, no gallop, no JVD, no murmur Abdomen/GI: non tender, soft Extremities/Musculoskelatal: normal inspection, no pedal edema Neurologic/Psych: no motor/sensory deficits, oriented x 3 Hospital Course The patient was admitted via the emergency room on 05/18/17 for complaints of waxing and waning chest discomfort radiating to the jaw that had been going on for well over a month, worse over the last few days. He been seen in cardiology clinic as an acute visit on 05/18/17 was noted to have dynamic lateral ST segment changes with EKG performed during an episode of chest discomfort and therefore he was referred to the emergency room where he was assessed by the undersigned yesterday. The time he arrived, his EKG had normalized to his previous baseline. His chest pain was resolved after having had subungual nitroglycerin, and the patient was hospitalized overnight last night and received IV fluids. He underwent cardiac catheterization via the right femoral artery approach today by Dr. Hai Canseco with findings of a high-grade 90% calcified proximal right coronary artery stenosis as well as a 70 % mid LAD stenosis. The patient received a total of 50 mL of contrast for the diagnostic cardiac catheter station. The case was discussed with Dr. Becerra of interventional cardiology at [facility] due to the calcified nature of the right coronary artery stenosis was felt that it was to anatomically complex to be performed at our [facility] hospital and transferred to a tertiary center with on-site CT surgery backup was recommended for high risk PCI. Post procedure, the patient did have mild recurrence of his chest discomfort. Post procedure EKG performed at 1239 after he) from the cardiac catheterization laboratory revealed stable findings with no significant ST changes. This case was discussed with Dr. Love cardiology on-call at [facility] and the patient was accepted in transfer. The patient is to be transferred by ACLS ground due to weather conditions with clouds, rain, and thunderstorms, air transport is not available. The patient had been on unfractionated heparin leading up to his procedure and this was discontinued 2 hours before his cardiac catheterization. Although the patient's [facility] chart lists topical Betadine as an allergy, he does not describe a history of iodine allergy hospitalized here, and he received iodinated contrast without any prophylaxis and had no allergic reactions observed. The patient has history of chronic kidney disease with a baseline creatinine of 2 mg/dL, and baseline calculated GFR of 30 mL per minute per meter square. On arrival on 05/18/17 his creatinine was 1.7, and had improved to 1.6 mg/dL performed today 05/19/17 prior to cardiac catheterization. Total time spent on discharge = 45 This includes examination of the patient, discharge planning, medication reconciliation, and communication with other providers. Discharge Instructions Complete Post cardiac cath progression.
--- NOTE | 2017-05-19 13:51 | Discharge Instructions ---
Discharge Instructions Procedure Procedure Date: May 19, 2017. Reason for Visit: Unstable Angina. Discharge Discharge Date: May 19, 2017. Discharge Diagnosis: Unstable angina, CAD Problem List: Medical Problems: (1) Chest pain Status: Acute (2) NSTEMI (non-ST elevated myocardial infarction) Status: Acute Last Recorded Wt (Kilograms): 101.000 Anesthesia Post Anesthesia Instructions: If you have had General Anesthesia or IV Sedation: * Do not drive today. * Resume driving when surgeon permits. * Do not make important decisions or sign legal documents today. * Call surgeon for: 1. Temperature elevations greater than 101 degrees F. 2. Uncontrollable pain. 3. Excessive bleeding. 4. Persistent nausea and vomiting. 5. Medication intolerance (nausea, vomiting or rash). * For nausea and vomiting use only clear liquids such as: tea, soda, bouillon until nausea subsides, then gradually increase diet as tolerated. * If you have any concerns or questions, call your surgeon's office. If physician is unavailable and it is an emergency, call 911 or go to the nearest emergency room. Instructions Activity Recommendations: limitations as noted below Recommended Home Diet: low cholesterol Allergies: Coded Allergies: Benzocaine (Verified Allergy, Severe, SLOUGHING OF SKIN, 05/15/17) Clindamycin (Verified Allergy, Intermediate, RASH, 05/15/17) Clobetasol (Verified Allergy, Unknown, ITCHING, 05/15/17) Doxycycline (Verified Allergy, Unknown, RASH, 05/15/17) Penicillins (Verified Allergy, Unknown, HIVES, 05/15/17) Phenylethylamine (Verified Allergy, Unknown, ITCHING, 05/15/17) Tea Tree Oil (Verified Allergy, Unknown, ITCHING, 05/15/17) Uncoded Allergies: CLEOCIN (Allergy, Unknown, SHUT KIDNEY DOWN, 05/05/15) Provider Instructions ACTIVITY RECOMMENDATIONS: It is common to feel weak and fatigue for a few days. * Do not drive or operate any motorized equipment for the next three days. * Limit stair usage (2 or 3 trips a day only) for the next three days. * Do not lift anything heavier than 10 pounds for the next three days. * Do not engage in vigorous exercise or any sports for the next five days. * You may shower the day after your procedure, but do not immerse the area for three days. Cleanse the site gently with soap and water. SPECIAL CARE INSTRUCTIONS: * You may replace the pressure dressing or band-aid the morning after the procedure. * After your procedure, it is normal to have a small bruise or small lump at the site. Examine your site daily for any change in the bruise or lump, redness, swelling, drainage or numbness. Notify your doctor if any change. BLEEDING: * If there is a small amount of bleeding at the site, lie down and apply firm pressure with a clean cloth for ten minutes. When the bleeding stops, lie quietly keeping the procedure limb straight for six hours. Notify your doctor as soon as possible. * If the bleeding does not stop after ten minutes or if there is a large amount of bleeding or spurting, call 911 immediately. Continue to lie down and hold firm pressure until help arrives. SKIN IRRITATION: * You may experience some redness and/or swelling in the area where radiation was administered. If any skin irritation occurs, please contact your family physician. FOLLOW UP VISIT: Keep any scheduled doctor appointments. Follow Up Follow-up with: Dr Casanova, office to call. Caleb Walker Recommendations: Call your doctor if: * Temperature above 101 degrees * Pain not relieved by pain medicine ordered * There is increased drainage or redness from any incision * You have any unanswered questions or concerns. Your Doctors Instructions noted above were prepared by provider Nikos Rodriguez. Patient Signature Section: Patient Instructions Signature Page Moody Lorenzo Patient (or Guardian) Signature/Date: I have read and understand the instructions given to me by my caregivers. Caregiver/RN/Doctor Signature/Date: The above-named patient and/or guardian has received patient instructions on this date. + Original Patient Signature Page (only) stays with chart. Please make copy for patient.
[2017-05-20] MEDS ORDERED: ASPIRIN 81 MG ECTAB PO SCH (09:00)
[2017-05-31] MEDS ORDERED: TRMCR130WC TOP (10:43)
[2017-05-31] MEDS ORDERED: ARFO15NE NEB (10:53)
[2017-05-31] MEDS ORDERED: IPRA1AER2 INH (10:53)
[2017-05-31] MEDS ORDERED: ASPI-232 PO (10:53)
[2017-05-31] MEDS ORDERED: OXGN (14:56)
[2017-05-31] MEDS ORDERED: OXYB5TAB74 PO (16:00)
[2017-05-31] MEDS ORDERED: VALA1TAB2 PO (16:00)
[2017-05-31] MEDS ORDERED: MULT-506 PO (16:00)
[2017-05-31] MEDS ORDERED: PREG100C PO (16:00)
[2017-05-31] MEDS ORDERED: SENNTAB13 PO (16:02)
[2017-05-31] MEDS ORDERED: SKINCRE34 TOP (16:02)
[2017-05-31] MEDS ORDERED: HYDR25SU20 PR (16:02)
[2017-05-31] MEDS ORDERED: FERR325T5 PO (17:28)
[2017-06-15] MEDS ORDERED: IMDSR60 PO (11:25)
[2017-06-15] MEDS ORDERED: NRV5 PO (11:25)
[2017-06-15] MEDS ORDERED: AMLO2.5T PO (11:36)
[2017-06-25] MEDS ORDERED: ALLO300T2 PO (07:00)
[2017-06-25] MEDS ORDERED: DOCU100C PO (07:00)
[2017-06-25] MEDS ORDERED: ASPCH81X PO (07:03)
[2017-06-25] MEDS ORDERED: MICO12CR TOP (07:03)
[2017-06-26] MEDS ORDERED: ZTHM250 PO (13:25)
== END 2017-05-19 15:19 | disposition short-term general hospital (02) | DRG 287 ==
LOC: C.EDB 14:35 → C.2T 15:41 → ENRESERV 16:10
PROVIDERS: ADMIT Specialist; ATTEND Specialist
PROC: 4A023N7 Measurement of Cardiac Sampling and Pressure, Left Heart, Percutaneous Approach (ICD-10-PCS; principal; 2017-05-19 10:32)
PROC: B2111ZZ Fluoroscopy of Multiple Coronary Arteries using Low Osmolar Contrast (ICD-10-PCS; principal; 2017-05-19 10:32)
DX: I25.110 Atherosclerotic heart disease of native coronary artery with unstable angina pectoris (principal); N18.4 Chronic kidney disease, stage 4 (severe); F17.210 Nicotine dependence, cigarettes, uncomplicated; J44.9 Chronic obstructive pulmonary disease, unspecified; E78.5 Hyperlipidemia, unspecified; I13.10 Hypertensive heart and chronic kidney disease without heart failure, with stage 1 through stage 4 chronic kidney disease, or unspecified chronic kidney disease; K21.9 Gastro-esophageal reflux disease without esophagitis; A60.00 Herpesviral infection of urogenital system, unspecified; Z96.643 Presence of artificial hip joint, bilateral; Z96.611 Presence of right artificial shoulder joint; G62.9 Polyneuropathy, unspecified; Z98.1 Arthrodesis status; Z87.19 Personal history of other diseases of the digestive system; Z79.899 Other long term (current) drug therapy; Z86.79 Personal history of other diseases of the circulatory system; Z79.82 Long term (current) use of aspirin; Z79.51 Long term (current) use of inhaled steroids; Z95.828 Presence of other vascular implants and grafts; Z99.81 Dependence on supplemental oxygen; Z79.52 Long term (current) use of systemic steroids; Z82.41 Family history of sudden cardiac death

== ENCOUNTER 2017-05-31 20:17 | Observation (INO) | payer OTHER, MEDICARE ==
[~2017-05-31] VITALS: Ht 167.6 cm; Wt 99.9 kg
[~2017-05-31 20:17] MED LIST changes: +ARFO15NE NEB; +ASPI-232 PO; -DOCU100T7 PO; +FERR325T5 PO; +HYDR25SU20 PR; +IPRA1AER2 INH; +MULT-506 PO; -MULT-845 PO; +OXGN; +OXYB5TAB74 PO; +PREG100C PO; +SENNTAB13 PO; +SKINCRE34 TOP; +TRMCR130WC TOP; +VALA1TAB2 PO; -VALA500T39 PO
[2017-05-31] MEDS ORDERED: NITROGLYCERIN OINT 2% 1GM PACKET ONE (20:29)
[2017-05-31] MEDS ORDERED: NITROGLYCERIN OINT 2% 1GM PACKET EXT ONE (20:30)
[2017-05-31 20:41] LABS: HEMATOCRIT 41.4 % (42-52); MEAN CORPUSCULAR HEMOGLOBIN 31.2 pg (25-34); MEAN CORPUSCULAR HGB CONC 31.2 g/dl (32-36); MEAN PLATELET VOLUME 10.5 fL (7.4-10.4); PLATELET COUNT 273 K/uL (130-400); RED BLOOD COUNT 4.14 M/uL (4.7-6.1); WHITE BLOOD COUNT 13.41 K/uL (4.8-10.8)
--- NOTE | 2017-05-31 21:00 | DIAGNOSTIC IMAGING REPORT ---
CHEST ONE VIEW PORTABLE CLINICAL HISTORY: 72 years-old Male presenting with chest pain. TECHNIQUE: Portable upright AP view of the chest was obtained. COMPARISON: 05/18/2017. FINDINGS: Atherosclerosis of aortic arch. Tortuosity of the descending thoracic aorta. Cardiac silhouette enlargement, stable to slightly increased from prior. Mild prominence of pulmonary vasculature, also unchanged. Minimal left basilar opacity. No large effusion or pneumothorax. Bilateral shoulder arthroplasties noted. Upper abdomen normal. IMPRESSION: 1. Cardiomegaly, stable to slightly increased from prior. 2. Minimal left basilar opacities, possibly atelectasis. Electronically signed by: Delfino Snow M.D. 05/31/2017 8:58 PM Dictated Date/Time: 05/31/2017 8:56 PM
[2017-05-31 21:02] LABS: PROTHROMBIN TIME (PATIENT) 11.1 SECONDS (9.0-12.0)
[2017-05-31 21:12] LABS: CREATININE 1.8 mg/dl (0.60-1.40); POTASSIUM 3.9 mmol/L (3.5-5.1)
[2017-05-31] MEDS ORDERED: ATV5X PO (21:42)
[2017-05-31] MEDS ORDERED: PRED-603 PO (21:42)
[2017-05-31] MEDS ORDERED: OMEP20CA9 PO (21:42)
[2017-05-31] MEDS ORDERED: PLMINS NEB (21:48)
[2017-05-31] MEDS ORDERED: ALBINS/ NEB (21:50)
[2017-05-31] MEDS ORDERED: CYNI1000 IM (21:50)
[2017-05-31] MEDS ORDERED: CHOL2000 PO (21:57)
[2017-05-31] MEDS: LEVAQUIN 750MG / 150ML D5W IV STA ×2 (22:05→22:13)
[2017-05-31] MEDS ORDERED: LPR25 PO (23:14)
[2017-05-31] MEDS ORDERED: ISOS30TA35 PO (23:14)
[2017-05-31] MEDS ORDERED: LPT40 PO (23:14)
[2017-05-31] MEDS ORDERED: NTRGSL/4 UT (23:14)
[2017-05-31] MEDS ORDERED: ALL100 PO (23:14)
[2017-05-31] MEDS ORDERED: PLV75 PO (23:14)
[2017-05-31] MEDS ORDERED: HYDROmorphone INJ 0.5 MG/0.5 ML SYR IV PRN (23:30)
[2017-05-31] MEDS ORDERED: ACETAMINOPHEN 325 MG TAB PO PRN (23:30)
[2017-05-31] MEDS ORDERED: LORAZEPAM 2 MG/ML 1 ML VIAL IV PRN (23:30)
[2017-05-31] MEDS ORDERED: ONDANSETRON INJ 2 MG/ML 2 ML VIAL IV PRN (23:30)
[2017-05-31] MEDS ORDERED: ALBUT/IPRATROP 3MG/0.5MG NEB 3 ML VIAL INH PRN (23:30)
[2017-05-31] MEDS ORDERED: IV FLUIDS COMPLETED PRN (23:45)
[2017-06-01] VITALS (9 sets, daily range): BP systolic 94–156; BP diastolic 45–96; PULSE 51–71; TEMP 36.4–37; O2SAT 93–96; Ht 167.6 cm; Wt 99.9 kg
[2017-06-01] MEDS ORDERED: LACTATED RINGER'S 1000ML 1,000 ML IV ONE (00:30)
[2017-06-01] MEDS ORDERED: OXYBUTYNIN CHLORIDE 5 MG TAB PO ONE (00:45)
[2017-06-01] MEDS ORDERED: ISOSORBIDE MONONITRATE 60 MG TABCR PO ONE (00:45)
[2017-06-01] MEDS ORDERED: FERROUS SULFATE 325 MG TAB PO ONE (00:45)
[2017-06-01] MEDS ORDERED: BUDESONIDE 0.5 MG/2 ML VIAL (PULMICORT) INH ONE (00:45)
[2017-06-01] MEDS ORDERED: PREGABALIN 100 MG CAP PO ONE (00:45)
[2017-06-01] MEDS ORDERED: ARFORMOTEROL TART 15MCG/2ML VIAL INH ONE (00:45)
[2017-06-01] MEDS ORDERED: DOCUSATE SODIUM/SENNA 50/8.6MG TAB PO PRN (00:45)
[2017-06-01] MEDS ORDERED: PANTOprazole SOD 40 MG TAB PO ONE (00:45)
[2017-06-01 01:14] LABS: MAGNESIUM 1.7 mg/dl (1.8-2.4)
--- NOTE | 2017-06-01 01:17 | HISTORY & PHYSICAL EXAMINATION ---
DATE OF ADMISSION: 05/31/2017 PRIMARY CARE DOCTOR: Dr. Jones. CHIEF COMPLAINT: Chest pain. HISTORY OF PRESENT ILLNESS: History obtained from patient and records. Medical history significant for chronic respiratory failure secondary to COPD on home O2 at night, past tobacco abuse, CAD status post stenting, hx PVD, hypertension, hyperlipidemia, chronic anemia (baseline hemoglobin 12-13), chronic renal insufficiency (baseline creatinine 2), gout, HSV, prostate cancer status post surgery. Recent confinement at [facility] under Cardiology service about 2 weeks ago for unstable angina. Cardiac catheterization showed high grade 90% calcified proximal RCA as well as 70% mild LAD stenosis. The patient transferred to [facility] due to anatomically complex disease. Patient confined at [facility] from 05/19 to 05/24. DEstent placed on the RCA. LAD blockage intervention to be done June 07 due to contrast dye exposure concerns with hx chronic kidney disease. During confinement patient had an acute gouty attack. Patient was seen by Rheumatology. Last week, patient was seen by [facility] Rheumatology outpatient. Patient complained of chest pain similar to his anginal attacks in the past. Seen by [facility] Cardiology on the same day. Patient compliant with medications. Impression was stable angina. Chest pain relieved with nitroglycerin given at the office. Patient had recurrence of anginal symptoms tonight relieved by nitroglycerin. MEDICAL HISTORY: As above. CT of the chest done yesterday outpatient for hemoptysis of 4 months duration. SURGERIES: He has had an IVC filter placement, prostatectomy, shoulder surgery, and hip surgery. HOME MEDICATIONS: Include Lyrica, stool softener Valtrex, lisinopril, lorazepam, multivitamins, Prilosec, Ditropan, cyanocobalamin ferrous sulfate, home O2 Proventil, Brovana, aspirin, budesonide, and vitamin D3, Plavix, Lopressor ALLERGIES: BENZOCAINE, CLINDAMYCIN, DOXYCYCLINE, CLOBETASOL, PENICILLIN FAMILY HISTORY: History of heart disease. PERSONAL AND SOCIAL HISTORY: Past tobacco abuse. No chronic alcohol intake. 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 REVIEW OF SYSTEMS: As per HPI, all other ROS negative. PHYSICAL EXAMINATION: VITAL SIGNS: Blood pressure was noted to be 122/79, pulse rate 59, RR 18 T 37 O2 sats 97% on 2 liters. GENERAL: Slightly anxious, no respiratory distress, obese. SKIN: Pallor. HEENT: Pale palpable conjunctivae. Dry mucosa. NECK: Short. CHEST: Decreased breath sounds. HEART: Bradycardic. ABDOMEN: Soft. NT EXTREMITIES: Minimal LE edema, no tenderness. NEUROLOGIC: No gross focality. LABS: Hemoglobin was noted to be 12.9, white cells 13.4, platelets noted to be 273. Sodium noted to be 141 K 3.9 chloride 107, CO2 27, BUN 22, creatinine 1.8, glucose of 110. Troponin first set 0.03. IMAGING DATA: Chest x-ray showed cardiomegaly, stable to slightly increased, left bibasilar opacities, atelectasis. EKG as per my interpretation - rate 55, sinus bradycardia, some T-wave flattening in inferior leads. ASSESSMENT: 1. Unstable angina history of coronary artery disease status post recent RCA stenting; left anterior descending artery dse intervention contemplated June 07. 2. Hypertension, stable. 3. Chronic renal insufficiency. Creatinine at baseline. 4. Chronic respiratory failure secondary to chronic obstructive pulmonary disease on home O2 pulmonary status at baseline 5. chronic hemoptysis (4 months duration). Outpatient CT chest read pending. Px follows with [facility] 6. CKD, renal function at baseline 7. Chronic anemia secondary to CKD, hemoglobin at baseline. 8. Prostate cancer status post surgery PLAN: Observation PCU. Continue antiplatelet, beta sabi, statin meds Cardio consult RE unstable angina. ER provider already has contacted Dr. Casanova. Increase maintenance Imdur from 30 to 60 mg daily for now as per Dr. Casanova. Follow outpatient CT chest study. DVT prophylaxis, SCDs, RE hemoptysis. Full code. MTDD
--- NOTE | 2017-06-01 01:29 | EMERGENCY ROOM VISIT NOTE ---
History Report prepared by Alice: Shara Mac Under the Supervision of: Dr. Bryn Hassan D.O. First contact with patient: 21:37 Chief Complaint: CHEST PAIN Stated Complaint: CHEST PAIN Nursing Triage Summary: Pt states he had a stent placed 8d ays ago, needs another stent on the left side scheduled for 06-07-15, started with mid chest pain about an hour ago, took 3 nitro without relif, called 911, pt a/ox3, states pain sharp and stabbing with pressure, imtermittent CP radiates acros diaphram, magi nause, no diaphoresis. History of Present Illness The patient is a 72 year old male who presents to the Emergency Room with complaints of resolved chest pain which started 2 hours ago. The patient had a stent placed last week at [place]. He is scheduled to have another stent placed next week. He describes the pain today as sharp pressure. It felt like his previous ID which required the stent last week. He was sitting at the computer when the pain started. He had nitro which resolved the pain completely. He also had aspirin. He denies any SOB, arm pain, or jaw pain. He has had a cough for the past month. He has been taking his Plavix as directed. He has 1 stent total. Source of History: patient Onset: 2 hours ago Position: chest Quality: pressure, sharp Timing: resolved Modifying Factors (Relieving): other (nitro) Associated Symptoms: + cough, No SOB Note: Pt denies arm pain, jaw pain. Review of Systems See HPI for pertinent positives & negatives. A total of 10 systems reviewed and were otherwise negative. 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 (18) Unstable angina Surgical Problems: (1) History of lumbar surgery (2) History of right shoulder replacement (3) History of temporomandibular joint syndrome (4) Hx of transurethral resection of prostate Family History Cancer Heart disease Kidney disease Social History Smoking Status: Former Smoker Alcohol Use: none Marital Status: Housing Status: lives with significant other Occupation Status: retired Current/Historical Medications Scheduled Allopurinol (Allopurinol), 100 MG PO DAILY Arformoterol Tartrate (Brovana), 15 MCG NEB BID Aspirin (Aspir-81), 81 MG PO QAM Atorvastatin (Atorvastatin Calcium), 40 MG PO DAILY Budesonide (Inhalation) (Pulmicort Respules 0.5MG/2ML), 2 ML NEB BID Cholecalciferol (Vitamin D3), 2,000 INTER.UNIT PO QPM Clopidogrel Bisulfate (Clopidogrel), 75 MG PO DAILY Cyanocobalamin (Cyanocobalamin), 1,000 MCG IM MONTHLY Ferrous Sulfate (Ferrous Sulfate), 325 MG PO QPM Home O2 Therapy (Oxygen), 3.5 LITERS NA HS Isosorbide Mononitrate Ext Rel (Imdur Ext Rel), 30 MG PO DAILY Metoprolol Tartrate (Lopressor), 25 MG PO BID Multivitamin (Multivitamin), 1 TAB PO DAILY Nitroglycerin (Nitrostat), 0.4 MG UT PRN Omeprazole (Prilosec), 20 MG PO BID Oxybutynin Chloride (Ditropan), 5 MG PO BID Pregabalin (Lyrica), 100 MG PO BID Valacyclovir Hcl (Valtrex), 1 GM PO DAILY Scheduled PRN Albuterol Sulf (Proventil 0.083% 2.5MG/3ML), 2.5 MG NEB HS PRN for SOB/Wheezing Eucerin (Eucerin), 1 APPLN TOP DAILY PRN for DRY SKIN Hydrocortisone Acetate (Rectal (Anusol-Hc), 25 MG MA BID PRN for Hemorrhoids Ipratropium-Albuterol (Combivent Respimat), 1 PUFF INH QID PRN for Cough/ Wheezing Lorazepam (Lorazepam), 0.5 MG PO TID PRN for Anxiety Prednisone (Deltasone), 20 MG PO UD PRN for COPD/Asthma Rescue Kit Sennosides-Docusate Sodium (Stool Softener Plus Laxat), 1 TAB PO DAILY PRN for Constipation Triamcinolone Acet (Aristocort 0.1%), 1 APPLN TOP UD PRN for Itching Allergies Coded Allergies: Benzocaine (Verified Allergy, Severe, SLOUGHING OF SKIN, 05/15/17) Clindamycin (Verified Allergy, Intermediate, RASH, 05/15/17) Clobetasol (Verified Allergy, Unknown, ITCHING, 05/15/17) Doxycycline (Verified Allergy, Unknown, RASH, 05/15/17) Penicillins (Verified Allergy, Unknown, HIVES, 05/15/17) Phenylethylamine (Verified Allergy, Unknown, ITCHING, 05/15/17) Tea Tree Oil (Verified Allergy, Unknown, ITCHING, 05/15/17) Physical Exam Vital Signs Date Time Temp Pulse Resp B/P (MAP) Pulse Ox O2 Delivery O2 Flow Rate FiO2 05/31/17 22:01 57 18 121/83 97 Nasal Cannula 2.0 05/31/17 20:44 59 122/79 97 Nasal Cannula 2.0 05/31/17 20:41 36.7 61 18 142/89 97 Nasal Cannula 2.0 05/31/17 20:32 98 Nasal Cannula 2.0 05/31/17 20:31 64 20 142/89 96 Nasal Cannula 2.0 05/31/17 20:30 96 Nasal Cannula 2.0 05/31/17 20:29 57 Physical Exam GENERAL: sitting up in bed, ill appearing, on nasal cannula EYE EXAM: normal conjunctiva OROPHARYNX: no exudate, no erythema, lips, buccal mucosa, and tongue normal and mucous membranes are moist NECK: supple, no nuchal rigidity, no adenopathy, non-tender LUNGS: Clear to auscultation. Normal chest wall mechanics HEART: no murmurs, S1 normal and S2 normal ABDOMEN: abdomen soft, non-tender, normo-active bowel sounds, no masses, no rebound or guarding. BACK: Back is symmetrical on inspection and there is no deformity, no midline tenderness, no CVA tenderness. SKIN: no rashes and no bruising UPPER EXTREMITIES: upper extremities are grossly normal. LOWER EXTREMITIES: Calves equal bilaterally. NEURO EXAM: Normal sensorium, cranial nerves II-XII grossly intact, normal speech, no gross weakness of arms, no gross weakness of legs. Medical Decision & Procedures ER Provider Diagnostic Interpretation: Radiology results as stated below per my review and the radiologist's interpretation: CHEST ONE VIEW PORTABLE CLINICAL HISTORY: 72 years-old Male presenting with chest pain. TECHNIQUE: Portable upright AP view of the chest was obtained. COMPARISON: 05/18/2017. FINDINGS: Atherosclerosis of aortic arch. Tortuosity of the descending thoracic aorta. Cardiac silhouette enlargement, stable to slightly increased from prior. Mild prominence of pulmonary vasculature, also unchanged. Minimal left basilar opacity. No large effusion or pneumothorax. Bilateral shoulder arthroplasties noted. Upper abdomen normal. IMPRESSION: 1. Cardiomegaly, stable to slightly increased from prior. 2. Minimal left basilar opacities, possibly atelectasis. Electronically signed by: Delfino Snow M.D. 05/31/2017 8:58 PM Dictated Date/Time: 05/31/2017 8:56 PM Laboratory Results 05/31/17 19:58 05/31/17 19:58 Test 05/31/17 19:58 05/31/17 20:34 05/31/17 23:08 Red Blood Count 4.14 M/uL (4.7-6.1) Mean Corpuscular Volume 100.0 fL (80-100) Mean Corpuscular Hemoglobin 31.2 pg (25-34) Mean Corpuscular Hemoglobin Concent 31.2 g/dl (32-36) RDW Standard Deviation 55.8 fL (36.4-46.3) RDW Coefficient of Variation 15.4 % (11.5-14.5) Mean Platelet Volume 10.5 fL (7.4-10.4) Erythrocyte Sedimentation Rate 17 mm/hr (0-14) Prothrombin Time 11.1 SECONDS (9.0-12.0) Prothromb Time International Ratio 1.0 (0.9-1.1) Activated Partial Thromboplast Time 26.4 SECONDS (21.0-31.0) Partial Thromboplastin Ratio 1.0 Anion Gap 7.0 mmol/L (3-11) Est Creatinine Clear Calc Drug Dose 40.7 ml/min Estimated GFR () 42.6 Estimated GFR (Non- 36.8 BUN/Creatinine Ratio 12.0 (10-20) Calcium Level 9.0 mg/dl (8.5-10.1) Magnesium Level 1.7 mg/dl (1.8-2.4) Total Bilirubin 0.4 mg/dl (0.2-1) Aspartate Amino Transf (AST/SGOT) 19 U/L (15-37) Alanine Aminotransferase (ALT/SGPT) 34 U/L (12-78) Alkaline Phosphatase 127 U/L (45-117) Total Creatine Kinase 135 U/L (39-308) Creatine Kinase MB 4.0 ng/ml (0.5-3.6) Creatine Kinase MB Ratio 3.0 (0-3.0) Total Protein 7.4 gm/dl (6.4-8.2) Albumin 3.7 gm/dl (3.4-5.0) Globulin 3.7 gm/dl (2.5-4.0) Albumin/Globulin Ratio 1.0 (0.9-2) Bedside Troponin I < 0.030 ng/ml (0-0.045) Lactic Acid Level 1.9 mmol/L (0.4-2.0) Troponin I 0.024 ng/ml (0-0.045) Laboratory results per my review. Medications Administered Medications (Trade) Dose Ordered Sig/Chata Route Start Time Stop Time Status Last Admin Dose Admin Nitroglycerin (Nitroglycerin 2% Oint) 1 inch STK-MED ONCE .ROUTE 05/31/17 20:29 05/31/17 20:30 DC 05/31/17 20:46 1 INCH Levofloxacin (Levaquin / D5W) 750 mg NOW STAT IV 05/31/17 22:05 05/31/17 22:06 DC 05/31/17 22:05 750 MG ECG Indication: chest pain Rate (beats per minute): 57 Rhythm: sinus bradycardia Findings: other (normal axis, T wave flattening inferior) Comparison ECG Date: 19-May-2017 Change: no significant change ED Course ED COURSE: Vital signs were reviewed and showed bradycardia The patients medical record was reviewed The above diagnostic studies were performed and reviewed. ED treatments and interventions as stated above. 2030: Nitroglycerin 1 inch EXT. 2148: The patient was evaluated in room A11B. A complete history and physical examination was performed. 2203: I reevaluated the patient. He notes that he has had a cough for the past month. 2204: Levofloxacin 750 mg IV. 2214: I [facility] the [facility] He will evaluate the patient for further management. 2218: Upon reevaluation, the patient is resting comfortably.I discussed my findings with the patient and he understands and agrees with the treatment plan. Based on the patients age, coexisting illnesses, exam and lab findings the decision to treat as an inpatient was made. The patient remained stable while under my care. The patient will be evaluated for further management. 2316: I discussed the patient's case with Shirley Callaway cardiology. He recommend the patient's isosorbide mononitrate be increased from 30 to 60. Medical Decision Differential diagnoses includes but is not limited to acute coronary syndrome, myocardial infarction, pericarditis, pulmonary embolus, aortic dissection, pneumonia, pneumothorax, musculoskeletal, shingles, esophageal. Patient is a 72-year-old male up since the ER for chest pain associated with shortness of breath which feels like his previous/last ID. Patient was recently cathed here following an N STEMI and transported to [facility] due to complexity for stent placement. Labs show mild stenosis of the 13,000. Creatinine slightly elevated at 1.8. Troponin was negative. Remainder of labs are fairly unremarkable. EKG was unchanged. Patient's pain was completely resolved upon arrival. He had received nitroglycerin and aspirin. Discussed case with internal medicine and cardiology per internal medicine's request. Nitrates will be increased per cardiology. Patient was admitted to internal medicine and will eventually need an additional stent which is scheduled in June. Medication Reconcilliation Current Medication List: was personally reviewed by me Blood Pressure Screening Patient's blood pressure: Normal blood pressure Blood pressure disposition: Did not require urgent referral Consults Time Called: 2211 Consulting Physician: Shirley Delgado hospitalist Returned Call: 2214 I reviewed the patient's case with him. He will evaluate the patient for further management. Additional Consults: Time Called: 2313 Consulted Physician: Shirley Callaway cardiology Returned Call: 2316 Additional Comments: I discussed the patient's case with him. He recommend the patient's isosorbide mononitrate be increased from 30 to 60. Impression Primary Impression: Precordial chest pain Scribe Attestation The scribe's documentation has been prepared under my direction and personally reviewed by me in its entirety. I confirm that the note above accurately reflects all work, treatment, procedures, and medical decision making performed by me. Departure Information Dispostion Being Evaluated By Hospitalist Referrals Jacob Jones MD (PCP) Patient Instructions [facility]
[2017-06-01 01:37] LABS: C-REACTIVE PROTEIN 0.69 mg/dl (0-0.29)
[2017-06-01 06:42] LABS: BASO % 0.1 %; BASO ABS # 0.01 K/uL (0-0.2); COMPLETE YES; EOS % 1.9 %; HEMATOCRIT 32.9 % (42-52); IG% 1.9 %; LYMPH % 12.4 %; LYMPH ABS # 1.25 K/uL (1.2-3.4); MEAN CELL VOLUME 99.1 fL (80-100); MEAN CORPUSCULAR HEMOGLOBIN 33.1 pg (25-34); MEAN CORPUSCULAR HGB CONC 33.4 g/dl (32-36); MEAN PLATELET VOLUME 9.8 fL (7.4-10.4); MONO % 9.1 %; NEUT % 74.6 %; PLATELET COUNT 187 K/uL (130-400); RED BLOOD COUNT 3.32 M/uL (4.7-6.1); WHITE BLOOD COUNT 10.08 K/uL (4.8-10.8)
[2017-06-01 07:16] LABS: BUN/CREATININE RATIO 13.2 (10-20); CALCIUM 8.3 mg/dl (8.5-10.1); CREATININE 1.7 mg/dl (0.60-1.40); POTASSIUM 3.8 mmol/L (3.5-5.1)
[2017-06-01] MEDS: NITROGLYCERIN 0.4 MG SL PER TAB CHARGE SL PRN ×3 (07:36→08:50)
[2017-06-01] MEDS: ARFORMOTEROL TART 15MCG/2ML VIAL INH SCH ×2 (08:00→08:50)
[2017-06-01] MEDS ORDERED: BUDESONIDE 0.5 MG/2 ML VIAL (PULMICORT) INH SCH (08:00)
[2017-06-01] MEDS ORDERED: ALLOPURINOL 100 MG TAB PO SCH (09:00)
[2017-06-01] MEDS ORDERED: MULTIVITAMIN TAB PO SCH (09:00)
[2017-06-01] MEDS ORDERED: PANTOprazole SOD 40 MG TAB PO SCH (09:00)
[2017-06-01] MEDS ORDERED: OXYBUTYNIN CHLORIDE 5 MG TAB PO SCH (09:00)
[2017-06-01] MEDS ORDERED: PREGABALIN 100 MG CAP PO SCH (09:00)
[2017-06-01] MEDS ORDERED: ATORVASTATIN 40 MG TAB PO SCH (09:00)
[2017-06-01] MEDS ORDERED: METOPROLOL TARTRATE 25 MG TAB PO SCH (09:00)
[2017-06-01] MEDS ORDERED: MAGIC MOUTHWASH PO PRN (09:00)
[2017-06-01] MEDS ORDERED: CLOPIDOGREL BISULFATE 75 MG TAB PO SCH (09:00)
[2017-06-01] MEDS ORDERED: NON-FORMULARY MEDICATION (Omeprazole (Prilosec) 20 MG) PO SCH (09:00)
[2017-06-01] MEDS ORDERED: LISINOPRIL 2.5 MG TAB PO SCH (09:00)
[2017-06-01] MEDS ORDERED: ASPIRIN 81 MG ECTAB PO SCH (09:00)
[2017-06-01] MEDS ORDERED: RANITIDINE HCL 150 MG TAB PO ONE (09:17)
[2017-06-01] MEDS ORDERED: DEXAMETHASONE CONC SOLN 3.75 MG, NYSTATIN SUSP 30 ML, DiphenhydrAMINE HCL SYRUP 300 MG,... PO PRN ×5 (09:45)
--- NOTE | 2017-06-01 09:53 | CARDIOLOGY CONSULTATION ---
DATE OF CONSULTATION: 06/01/2017 CONSULTATION REQUESTED BY: Dr. Hassan. REASON FOR CONSULTATION: Chest pain with known CAD. HISTORY OF PRESENT ILLNESS: Mr. Lorenzo is a very pleasant 72-year-old gentleman who has been following with me as an outpatient for his newly discovered coronary artery disease. He presented to [facility] Emergency Department late in the evening of 05/31/2017 with a complaint of chest pain. The patient has been having ongoing chest pain ever since he underwent rotational arthrectomy of his RCA with a planned staged intervention to his LAD. He states the pain is exactly similar as it is before, it is mid sternal, pressure sensation with radiation around the right and left precordium. It is relieved with nitro. It is associated with diaphoresis and shortness of breath but denies any associated nausea, lightheadedness, dizziness, or syncope. Since the rotational arthrectomy, he has been started on aspirin, Plavix, metoprolol and subsequently Imdur was added for ongoing pain. He states he does not believe the Imdur has helped much, but sublingual nitroglycerin does resolve the pain. On the evening of ; he had the pain, he took 3 sublingual nitroglycerin as directed and when the pain was resolved with the third, EMS was called. Currently, he is still having discomfort at rest. He did eat breakfast this morning and states the pain is similar to before. PAST SURGICAL HISTORY: 1. Rotational atherectomy due to a proximal RCA lesion along with drug-eluting stent placement, May 2017. 2. Coronary artery disease with planned intervention to a mid LAD 70% lesion on 06/07/2016 at [place]. 3. Tobacco abuse. 4. COPD. 5. Abdominal aortic aneurysm. 6. Sepulveda's esophagitis. 7. Polyneuropathy. 8. Stage 4 chronic kidney disease. 9. Hypertension. FAMILY HISTORY: Noncontributory. SOCIAL HISTORY: The patient is a former smoker. He is a [id number] history, quit in 2008. Denies any alcohol or recreational drug use. 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 He is and lives at home with his . PAST SURGICAL HISTORY: 1. IVC filter placement. 2. Total hysterectomy. 3. Bilateral shoulder replacements. 4. Bilateral hip replacements. 5. Upper endoscopy. REVIEW OF SYSTEMS: As per HPI, all other review of systems reviewed and negative at this time. ALLERGIES: 1. BETADINE. 2. BENZOCAINE 3. CLINDAMYCIN. 4. CLOBETASOL. 5. DOXYCYCLINE. 6. PENICILLIN. 7. PHENYLETHYLAMINE. 8. TEA TREE OIL. MEDICATIONS AN OUTPATIENT: 1. Aspirin 81 mg daily. 2. Plavix 75 mg daily. 3. Metoprolol 25 mg b.i.d. 4. Imdur 30 mg daily. 5. Atorvastatin 40 mg daily. 6. Lyrica b.i.d. 7. Allopurinol daily. 8. Ditropan b.i.d. 9. Lorazepam as needed. 10. Omeprazole 20 mg b.i.d. PHYSICAL EXAMINATION: VITALS: Temperature 37, pulse 51, respiratory rate 12, blood pressure 104/45. GENERAL: Awake, alert, oriented x3, mild distress, improved with sublingual nitroglycerin. HEENT: Normocephalic, atraumatic. Pupils equal, round, and reactive to light and accommodation. Extraocular muscles intact. Anicteric sclerae. Moist mucous membranes. NECK: No JVD, no bruit. CARDIOVASCULAR: Regular. Positive S4. Normal S1 and S2. No S3. No murmurs or rubs. PULMONARY: Clear to auscultation bilaterally. No rales, rhonchi, or wheezing. ABDOMEN: Bowel sounds x4, soft. No rebound, guarding, or tenderness. No organomegaly. EXTREMITIES: No clubbing, cyanosis or edema. +2 pedal pulses bilaterally. SKIN: Warm and dry. TEST RESULTS: A 12-lead EKG performed in the Emergency Department independently reviewed at this time and shows sinus bradycardia at 57 beats per minute, normal axis, normal intervals, no signs of active ischemia, and no significant change compared to previous study. A 12-lead EKG this a.m. is unchanged. LABORATORY STUDIES OF SIGNIFICANCE: CPK of 135. Troponin of 0.02, BUN 22, and creatinine 1.7 which is his baseline. A 2D echocardiogram performed 05/19/2017 was read as normal LV chamber size with mild concentric LVH, normal LV systolic function, normal wall motion, EF 55-60%, grade 1 diastolic dysfunction, no significant valvular pathology. IMPRESSION: 1. Ongoing chest pain. 2. Known coronary artery disease with a planned staged intervention to the 70% mid left anterior descending lesion. 3. Chronic kidney disease, stable. 4. Diabetes. 5. Chronic obstructive pulmonary disease. 6. Gastroesophageal reflux disease. RECOMMENDATIONS: It was my pleasure to see Mr. Lorenzo in consultation today. The treatment options for the patient were discussed at great lengths including transfer to [place] for staged intervention to his LAD, possible intervention to be performed here at [facility] and the patient prefers to be transferred back to [place], so I did contact transfer center and the patient was accepted for transfer by Dr. Saunders and he will be transported by ambulance. In the meantime, he will be placed on nitro paste and treatment for his GERD will also be started including Magic mouthwash and PPI. His aspirin, Plavix, metoprolol, Imdur, atorvastatin will not be interrupted. He has been made n.p.o. for transfer. The patient agrees with the above plan. Thank you very much for allowing me to participate in the care of your patient.
[2017-06-01] MEDS ORDERED: NURSING VERBAL MED ORDER ONE (10:15)
--- NOTE | 2017-06-01 10:17 | Progress Note ---
Internal Med Progress Note Date of Service: Jun 01, 2017. Provider Documentation: SUBJECTIVE: patient still has some epigastric discomfort and jaw discomfort hemodynamically stable afebrile no sob or nausea ok for transfer to [place] OBJECTIVE: Vital Signs-as noted below Exam: General-alert and oriented. Not in distress. ENT-normal hearing Neck-no neck masses Lungs-cta b/l no wheezing or crackles Heart-s1 and s2 heard regular rate and rhythm, no murmurs Abdomen-soft bowel sounds present non tender no distension Extremities no edema no erythema Neuro-alert and oriented moves extremities Lab data as noted below. ASSESSMENT & PLAN: 1. Unstable angina history of coronary artery disease status post recent RCA stenting; left anterior descending artery disease intervention contemplated June 07. presented with recurrent chest pains. CE and EKG unremarkable seen by cardiology - increased Imdur to 60mg and added nitro paste and because of complex coronory anatomy and lesion in LAD patient is getting transferred to [facility] . CHANGED IMDUR TO 30MG AT TRANSFER 2. Hypertension, stable on b sabi and nitrates 3. Chronic renal insufficiency. Creatinine at baseline. 4. Chronic respiratory failure secondary to chronic obstructive pulmonary disease on home O2 pulmonary status at baseline. Continue home inhalers 5. chronic hemoptysis (4 months duration). Outpatient CT chest read pending. Px follows with [facility] 6. Chronic anemia secondary to CKD, hemoglobin at baseline. 7. Prostate cancer status post surgery Transfer to [place]. Vital Signs: Date Time Temp Pulse Resp B/P (MAP) Pulse Ox O2 Delivery O2 Flow Rate FiO2 06/01/17 10:06 67 122/72 (89) 06/01/17 08:52 67 113/67 (82) 06/01/17 07:45 Room Air 06/01/17 07:13 37.0 51 16 104/45 (64) 93 Room Air 06/01/17 04:12 71 18 94 Room Air 06/01/17 04:00 94 Room Air 3.5 06/01/17 04:00 36.4 64 16 94/57 (69) 94 Room Air 06/01/17 01:40 36.5 53 16 156/96 96 Room Air 05/31/17 23:49 54 20 129/84 97 Nasal Cannula 2.0 05/31/17 22:01 57 18 121/83 97 Nasal Cannula 2.0 05/31/17 20:44 59 122/79 97 Nasal Cannula 2.0 05/31/17 20:41 36.7 61 18 142/89 97 Nasal Cannula 2.0 05/31/17 20:32 98 Nasal Cannula 2.0 05/31/17 20:31 64 20 142/89 96 Nasal Cannula 2.0 05/31/17 20:30 96 Nasal Cannula 2.0 05/31/17 20:29 57 Lab Results: Results Past 24 Hours Test 05/31/17 19:58 05/31/17 20:34 05/31/17 23:08 06/01/17 06:30 Range/Units White Blood Count 13.41 10.08 4.8-10.8 K/uL Red Blood Count 4.14 3.32 4.7-6.1 M/uL Hemoglobin 12.9 11.0 14.0-18.0 g/dL Hematocrit 41.4 32.9 42-52 % Mean Corpuscular Volume 100.0 99.1 80-100 fL Mean Corpuscular Hemoglobin 31.2 33.1 25-34 pg Mean Corpuscular Hemoglobin Concent 31.2 33.4 32-36 g/dl RDW Standard Deviation 55.8 55.6 36.4-46.3 fL RDW Coefficient of Variation 15.4 15.3 11.5-14.5 % Platelet Count 273 187 130-400 K/uL Mean Platelet Volume 10.5 9.8 7.4-10.4 fL Erythrocyte Sedimentation Rate 17 0-14 mm/hr Prothrombin Time 11.1 9.0-12.0 SECONDS Prothromb Time International Ratio 1.0 0.9-1.1 Activated Partial Thromboplast Time 26.4 21.0-31.0 SECONDS Partial Thromboplastin Ratio 1.0 Sodium Level 141 141 136-145 mmol/L Potassium Level 3.9 3.8 3.5-5.1 mmol/L Chloride Level 107 109 98-107 mmol/L Carbon Dioxide Level 27 27 21-32 mmol/L Anion Gap 7.0 5.0 3-11 mmol/L Blood Urea Nitrogen 22 22 7-18 mg/dl Creatinine 1.80 1.70 0.60-1.40 mg/dl Est Creatinine Clear Calc Drug Dose 40.7 43.5 ml/min Estimated GFR () 42.6 45.7 Estimated GFR (Non- 36.8 39.4 BUN/Creatinine Ratio 12.0 13.2 10-20 Random Glucose 110 89 70-99 mg/dl Calcium Level 9.0 8.3 8.5-10.1 mg/dl Magnesium Level 1.7 1.8-2.4 mg/dl Total Bilirubin 0.4 0.2-1 mg/dl Aspartate Amino Transf (AST/SGOT) 19 15-37 U/L Alanine Aminotransferase (ALT/SGPT) 34 12-78 U/L Alkaline Phosphatase 127 45-117 U/L Total Creatine Kinase 135 39-308 U/L Creatine Kinase MB 4.0 0.5-3.6 ng/ml Creatine Kinase MB Ratio 3.0 0-3.0 C-Reactive Protein 0.69 0-0.29 mg/dl Total Protein 7.4 6.4-8.2 gm/dl Albumin 3.7 3.4-5.0 gm/dl Globulin 3.7 2.5-4.0 gm/dl Albumin/Globulin Ratio 1.0 0.9-2 Bedside Troponin I < 0.030 0-0.045 ng/ml Lactic Acid Level 1.9 0.4-2.0 mmol/L Troponin I 0.024 0.024 0-0.045 ng/ml Neutrophils (%) (Auto) 74.6 % Lymphocytes (%) (Auto) 12.4 % Monocytes (%) (Auto) 9.1 % Eosinophils (%) (Auto) 1.9 % Basophils (%) (Auto) 0.1 % Neutrophils # (Auto) 7.52 1.4-6.5 K/uL Lymphocytes # (Auto) 1.25 1.2-3.4 K/uL Monocytes # (Auto) 0.92 0.11-0.59 K/uL Eosinophils # (Auto) 0.19 0-0.5 K/uL Basophils # (Auto) 0.01 0-0.2 K/uL Immature Granulocyte % (Auto) 1.9 % Immature Granulocyte # (Auto) 0.19 0.00-0.02 K/uL Hepatitis C Antibody Screen NEG NEG Microbiology Results 05/31/17 Blood Culture, Received Pending 05/31/17 Blood Culture, Received Pending
--- NOTE | 2017-06-01 10:21 | Discharge Instructions ---
Discharge Instructions Date of Service Jun 01, 2017. Admission Reason for Admission: Unstable Angina Discharge Discharge Diagnosis / Problem: unstable angina Discharge Goals Goal(s): Decrease discomfort, Improve function Activity Recommendations Activity Level: Up Ad Aliya . Additional Information Patient informed of condition: Yes Advance Directives: Yes DNR: No Level of Care: Other (transfering to [facility], [facility]) Communicable Disease: No Prognosis: Other (transferring to [place] for acute care) Oxygen at (LPM): 3.5lts via nasal canula Harris Catheter: No Instructions / Follow-Up Instructions / Follow-Up FOLLOWUP PER CARTER RECOMMENDATIONS Current Hospital Diet Patient's current hospital diet: AHA Diet (Heart Healthy) Discharge Diet Recommended Diet: AHA Diet (Heart Healthy) Pending Studies Studies pending at discharge: no Physician Orders On Transfer Special Precautions: FALL PRECAUTIONS Vital Signs: EVERY 8HRS Additional Orders: PLEASE CHECK MEDICATION RECONCILIATION FOR ACCURATE MEDICATIONS Medical Emergencies . Who to Call and When: Medical Emergencies: If at any time you feel your situation is an emergency, please call 911 immediately. . Non-Emergent Contact Non-Emergency issues call your: Primary Care Provider . . "Provider Documentation" section prepared by Ciro Kramer. . Core Measure Problem Core Measures: None
--- NOTE | 2017-06-01 10:25 | Discharge Summary ---
Discharge Summary Date of Service Jun 01, 2017. Discharge Summary Admission Date: May 31, 2017 at 23:20 Discharge Date: Jun 01, 2017 Discharge Disposition: Acute care facility ([facility]) Principal Diagnosis: UNSTABLE ANGINA Secondary Diagnoses/Problems: for chronic respiratory failure secondary to COPD on home O2 at night, past tobacco abuse, CAD status post stenting, hx PVD, hypertension, hyperlipidemia, chronic anemia (baseline hemoglobin 12-13), chronic renal insufficiency (baseline creatinine 2), gout, HSV, prostate cancer status post surgery. Procedures: CXR: 1. Cardiomegaly, stable to slightly increased from prior. 2. Minimal left basilar opacities, possibly atelectasis. Consultations: CARDIOLOGY Medication Reconciliation Continued Medications: Albuterol Sulf (Proventil 0.083% 2.5MG/3ML) 2.5 Mg/3 Ml Nebu 2.5 MG NEB HS PRN for SOB/Wheezing Allopurinol (Allopurinol) 100 Mg Tab 100 MG PO DAILY, #21 Arformoterol Tartrate (Brovana) 15 Mcg/2 Ml Neb 15 MCG NEB BID MIX WITH BEDESONIDE Aspirin (Aspir-81) 81 Mg Tab 81 MG PO QAM Atorvastatin (Atorvastatin Calcium) 40 Mg Tab 40 MG PO DAILY, #30 Budesonide (Inhalation) (Pulmicort Respules 0.5MG/2ML) 0.5 Mg/2 Ml Yareli 2 ML NEB BID, EA Cholecalciferol (Vitamin D3) 2,000 Unit Cap 2000 INTER.UNIT PO QPM Clopidogrel Bisulfate (Clopidogrel) 75 Mg Tab 75 MG PO DAILY, #30 Cyanocobalamin (Cyanocobalamin) 1,000 Mcg/Ml Inj 1000 MCG IM MONTHLY Eucerin (Eucerin) Cre 1 APPLN TOP DAILY PRN for DRY SKIN Ferrous Sulfate (Ferrous Sulfate) 325 Mg Tab 325 MG PO QPM Home O2 Therapy (Oxygen) Gas 3.5 LITERS NA HS Hydrocortisone Acetate (Rectal (Anusol-Hc) 25 Mg Sup 25 MG DE BID PRN for Hemorrhoids Ipratropium-Albuterol (Combivent Respimat) 1 Aer Aer 1 PUFF INH QID PRN for Cough/Wheezing Isosorbide Mononitrate Ext Rel (Imdur Ext Rel) 30 Mg Tabcr 30 MG PO DAILY, #34 Lorazepam (Lorazepam) 0.5 Mg Tab 0.5 MG PO TID PRN for Anxiety Metoprolol Tartrate (Lopressor) 25 Mg Tab 25 MG PO BID, #60 Multivitamin (Multivitamin) Tab 1 TAB PO DAILY Nitroglycerin (Nitrostat) 0.4 Mg Tab 0.4 MG UT PRN, BTL Omeprazole (Prilosec) 20 Mg Cap 20 MG PO BID Oxybutynin Chloride (Ditropan) 5 Mg Tab 5 MG PO BID Prednisone (Deltasone) 20 Mg Tab 20 MG PO UD PRN for COPD/Asthma Rescue Kit TAKE 2 TABLETS (40 MG) DAILY FOR 5 DAYS Pregabalin (Lyrica) 100 Mg Cap 100 MG PO BID Sennosides-Docusate Sodium (Stool Softener Plus Laxat) 1 Tab Tab 1 TAB PO DAILY PRN for Constipation Triamcinolone Acet (Aristocort 0.1%) 90 Appln/30 Gm Cr 1 APPLN TOP UD PRN for Itching APPLY TWICE DAILY IF NEEDED FOR ITCHY LEGS Valacyclovir Hcl (Valtrex) 1 Gm Tab 1 GM PO DAILY Admission Information HPI (per Admitting provider): History obtained from patient and records. Medical history significant for chronic respiratory failure secondary to COPD on home O2 at night, past tobacco abuse, CAD status post stenting, hx PVD, hypertension, hyperlipidemia, chronic anemia (baseline hemoglobin 12-13), chronic renal insufficiency (baseline creatinine 2), gout, HSV, prostate cancer status post surgery. Recent confinement at [facility] under Cardiology service about 2 weeks ago for unstable angina. Cardiac catheterization showed high grade 90% calcified proximal RCA as well as 70% mild LAD stenosis. The patient transferred to [facility] due to anatomically complex disease. Patient confined at [facility] from 05/19 to 05/24. DEstent placed on the RCA. LAD blockage intervention to be done June 07 due to contrast dye exposure concerns with hx chronic kidney disease. During confinement patient had an acute gouty attack. Patient was seen by Rheumatology. Last week, patient was seen by [facility] Rheumatology outpatient. Patient complained of chest pain similar to his anginal attacks in the past. Seen by [facility] Cardiology on the same day. Patient compliant with medications. Impression was stable angina. Chest pain relieved with nitroglycerin given at the office. Patient had recurrence of anginal symptoms tonight relieved by nitroglycerin. Physical Exam (per Admitting): VITAL SIGNS: Blood pressure was noted to be 122/79, pulse rate 59, RR 18 T 37 O2 sats 97% on 2 liters. GENERAL: Slightly anxious, no respiratory distress, obese. SKIN: Pallor. HEENT: Pale palpable conjunctivae. Dry mucosa. NECK: Short. CHEST: Decreased breath sounds. HEART: Bradycardic. ABDOMEN: Soft. NT EXTREMITIES: Minimal LE edema, no tenderness. NEUROLOGIC: No gross focality. Hospital Course 1. Unstable angina history of coronary artery disease status post recent RCA stenting; left anterior descending artery disease intervention contemplated June 07. presented with recurrent chest pains. CE and EKG unremarkable seen by cardiology - increased Imdur to 60mg and added nitro paste and because of complex coronory anatomy and lesion in LAD patient is getting transferred to [facility] . CHANGED IMDUR TO 30MG AT TRANSFER 2. Hypertension, stable on b sabi and nitrates 3. Chronic renal insufficiency. Creatinine at baseline. 4. Chronic respiratory failure secondary to chronic obstructive pulmonary disease on home O2 pulmonary status at baseline. Continue home inhalers 5. chronic hemoptysis (4 months duration). Out[address] CT chest read pending. Px follows with [facility] Thoracic Medicine 6. Chronic anemia secondary to CKD, hemoglobin at baseline. 7. Prostate cancer status post surgery Transfer to [place]. Total time spent on discharge = 40MINUTES This includes examination of the patient, discharge planning, medication reconciliation, and communication with other providers. Discharge Instructions Discharge Instructions Date of Service Jun 01, 2017. Admission Reason for Admission: Unstable Angina Discharge Discharge Diagnosis / Problem: unstable angina Discharge Goals Goal(s): Decrease discomfort, Improve function Activity Recommendations Activity Level: Up Ad Aliya . Additional Information Patient informed of condition: Yes Advance Directives: Yes DNR: No Level of Care: Other (transfering to [facility]) Communicable Disease: No Prognosis: Other (transferring to [place] for acute care) Oxygen at (LPM): 3.5lts via nasal canula Harris Catheter: No Instructions / Follow-Up Instructions / Follow-Up FOLLOWUP PER [facility] RECOMMENDATIONS Current Hospital Diet Patient's current hospital diet: AHA Diet (Heart Healthy) Discharge Diet Recommended Diet: AHA Diet (Heart Healthy) Pending Studies Studies pending at discharge: no Physician Orders On Transfer Special Precautions: FALL PRECAUTIONS Vital Signs: EVERY 8HRS Additional Orders: PLEASE CHECK MEDICATION RECONCILIATION FOR ACCURATE MEDICATIONS Medical Emergencies . Who to Call and When: Medical Emergencies: If at any time you feel your situation is an emergency, please call 911 immediately. . Non-Emergent Contact Non-Emergency issues call your: Primary Care Provider . . "Provider Documentation" section prepared by Ciro Kramer. . Core Measure Problem Core Measures: None
[2017-06-01] MEDS ORDERED: NITROGLYCERIN 2% OINTMENT 30GM TUBE EXT SCH (12:00)
[2017-06-01] MEDS ORDERED: NITROGLYCERIN OINT 2% 1GM PACKET EXT SCH ×2 (12:00→16:00)
[2017-06-01] MEDS ORDERED: RANITIDINE HCL 150 MG TAB PO SCH (21:00)
[2017-06-01] MEDS ORDERED: FERROUS SULFATE 325 MG TAB PO SCH (21:00)
[2017-06-02] MEDS ORDERED: ISOSORBIDE MONONITRATE 60 MG TABCR PO SCH (09:00)
[2017-06-25] MEDS ORDERED: DOCU100C PO (07:00)
[2017-06-25] MEDS ORDERED: ALLO300T2 PO (07:00)
[2017-06-25] MEDS ORDERED: ASPCH81X PO (07:03)
[2017-06-25] MEDS ORDERED: MICO12CR TOP (07:03)
[2017-06-26] MEDS ORDERED: ZTHM250 PO (13:25)
== END 2017-06-01 16:59 | disposition short-term general hospital (02) ==
LOC: EDBD 20:17 → C.EDA 20:18 → C.MED 23:20 → ENRESERV 23:35
PROVIDERS: ADMIT Internal Medicine; ATTEND Internal Medicine
DX: I20.0 Unstable angina (principal); J96.10 Chronic respiratory failure, unspecified whether with hypoxia or hypercapnia; I25.2 Old myocardial infarction; I25.10 Atherosclerotic heart disease of native coronary artery without angina pectoris; Z95.5 Presence of coronary angioplasty implant and graft; I71.4 Abdominal aortic aneurysm, without rupture; I12.9 Hypertensive chronic kidney disease with stage 1 through stage 4 chronic kidney disease, or unspecified chronic kidney disease; N18.3 Chronic kidney disease, stage 3 (moderate); J44.9 Chronic obstructive pulmonary disease, unspecified; D63.1 Anemia in chronic kidney disease; E78.5 Hyperlipidemia, unspecified; K21.9 Gastro-esophageal reflux disease without esophagitis; R04.2 Hemoptysis; I73.9 Peripheral vascular disease, unspecified; B00.9 Herpesviral infection, unspecified; M10.9 Gout, unspecified; Z87.891 Personal history of nicotine dependence; Z79.82 Long term (current) use of aspirin; Z79.02 Long term (current) use of antithrombotics/antiplatelets; Z79.899 Other long term (current) drug therapy; Z99.81 Dependence on supplemental oxygen; Z85.46 Personal history of malignant neoplasm of prostate

== ENCOUNTER 2017-06-07 08:48 | Emergency (ER) | payer OTHER, MEDICARE ==
[~2017-06-07 08:48] MED LIST changes: +ALBINS/ NEB; +ALL100 PO; +ATV5X PO; -AZIT250T PO; +CHOL2000 PO; +CYNI1000 IM; +ISOS30TA35 PO; -LISI-461 PO; +LPR25 PO; +LPT40 PO; +NTRGSL/4 UT; +OMEP20CA9 PO; +PLMINS NEB; +PLV75 PO; +PRED-603 PO
[2017-06-07 08:50] VITALS: TEMP 36.7
[2017-06-07] MEDS ORDERED: SODIUM CHLORIDE 0.9% 1000ML 1,000 ML IV STA (09:46)
[2017-06-07] MEDS ORDERED: MoRPHine SULFATE 10 MG/ML CARP/VIAL IV STA (09:48)
[2017-06-07] MEDS ORDERED: ONDANSETRON INJ 2 MG/ML 2 ML VIAL IV STA (09:48)
[2017-06-07 09:49] LABS: BASO % 0.1 %; BASO ABS # 0.01 K/uL (0-0.2); COMPLETE YES; HEMATOCRIT 30.8 % (42-52); IG% 0.5 %; LYMPH % 8.3 %; MEAN CELL VOLUME 99.4 fL (80-100); MEAN CORPUSCULAR HEMOGLOBIN 32.3 pg (25-34); MEAN CORPUSCULAR HGB CONC 32.5 g/dl (32-36); MEAN PLATELET VOLUME 9.9 fL (7.4-10.4); MONO % 10.3 %; NEUT % 78.8 %; PLATELET COUNT 201 K/uL (130-400); WHITE BLOOD COUNT 8.42 K/uL (4.8-10.8)
[2017-06-07 09:55] LABS: BLOOD UREA NITROGEN 24 mg/dl (7-18); BUN/CREATININE RATIO 11.4 (10-20); CALCIUM 9.5 mg/dl (8.5-10.1); CARBON DIOXIDE 21 mmol/L (21-32); CHLORIDE 106 mmol/L (98-107); GLUCOSE 104 mg/dl (70-99); POTASSIUM 3.8 mmol/L (3.5-5.1); SODIUM 139 mmol/L (136-145)
[2017-06-07 09:58] LABS: ALKALINE PHOSPHATASE 72 U/L (45-117); ALT/SGPT 22 U/L (12-78); AST/SGOT 24 U/L (15-37)
[2017-06-07] MEDS ORDERED: OPTIRAY 320 IV PRN (10:00)
[2017-06-07] MEDS ORDERED: ACET-1101 PO (10:09)
[2017-06-07] MEDS ORDERED: ATOR-26 PO (10:09)
[2017-06-07] MEDS ORDERED: ZPAK PO (10:12)
[2017-06-07 10:16] LABS: INR 1.1 (0.9-1.1); PARTIAL THROMBOPLASTIN RATIO 1.2; PROTHROMBIN TIME (PATIENT) 11.4 SECONDS (9.0-12.0)
--- NOTE | 2017-06-07 11:28 | DIAGNOSTIC IMAGING REPORT ---
ABDOMEN AND PELVIS CT WITHOUT CONTRAST CT DOSE: 1128.69 mGy.cm HISTORY: Epigastric pain. TECHNIQUE: Multiaxial CT images of the abdomen and pelvis were performed without contrast. A dose lowering technique was utilized adhering to the principles of ALARA. COMPARISON STUDY: Abdomen and pelvis CT 05/08/2017. FINDINGS: Bibasilar linear densities consistent with subsegmental atelectasis. No pneumoperitoneum. No pneumatosis. Bilateral total hip arthroplasties. This obscures the majority of the deep pelvic structures. Stable benign-appearing 4 cm lucent lesion within the left iliac wing. Focal laxity within the midline of the lower rectus abdominis muscles remains unchanged. This results in focal herniation of the intra-abdominal fat and a few small bowel loops. Mild subcutaneous fat stranding/contusion within the right groin. Patchy area of increased density within the left groin/inguinal canal which measures approximately 6 x 5 cm. This is consistent with a subcutaneous hematoma. This abuts the left common femoral vessels. This is only partially visualized due to metallic artifact. No evidence for extraperitoneal/retroperitoneal extension of the hemorrhage. Suspect a prior prostatectomy. The bladder is not well-visualized due to the metallic artifact. Colonic diverticulosis. Suboptimal evaluation for bowel pathology due to the lack of intravenous and oral contrast. However, there is no definite bowel wall thickening or obstruction. Moderate well-formed stool seen throughout the colon. Normal appendix. No retroperitoneal lymphadenopathy. An IVC filter is again noted. Focal aneurysmal dilatation of the infrarenal abdominal aorta measuring up to 3.4 cm. This remains unchanged. Small hiatus hernia. The unenhanced liver, spleen, adrenal glands, and pancreas are unremarkable. No renal stones. No hydronephrosis. Slight increased density within the gallbladder may be due to a recent contrast study. IMPRESSION: 1. Left groin/inguinal canal patchy hyperdensity measuring approximate 6 x 5 cm. This is consistent with a subcutaneous hematoma. No evidence for retroperitoneal/extraperitoneal extension. Of note, this is only partially visualized due to the extensive metallic artifact from the bilateral total hip arthroplasties. There is also small amount of hemorrhage/contusion within the right groin. 2. No bowel wall thickening or obstruction. 3. Stable 3.4 cm abdominal aortic aneurysm. 4. Additional findings as described above. Electronically signed by: Geovani Turner M.D. 06/07/2017 11:27 AM Dictated Date/Time: 06/07/2017 11:16 AM
--- NOTE | 2017-06-07 12:26 | DIAGNOSTIC IMAGING REPORT ---
(TESTICULAR) SCROTUM-CONT HISTORY: Pain pain in testicles/sp cath w/ likely hematoma COMPARISON: None. FINDINGS: Right testis: Maximum dimension 3.8 cm. Normal vascular flow. Right centered hydrocele. Normal right epididymis. Left testis: Maximum dimension 3.9 cm. Normal vascular flow. Moderate hydrocele. Normal left epididymis. IMPRESSION: 1. Normal testes bilaterally. 2. Moderate bilateral hydroceles. 3. Normal epididymis bilaterally. 4. Moderate scrotal wall edema and/or thickening The above report was generated using voice recognition software. It may contain grammatical, syntax or spelling errors. Electronically signed by: Vickey Arias M.D. 06/07/2017 12:24 PM Dictated Date/Time: 06/07/2017 12:23 PM
--- NOTE | 2017-06-07 14:36 | DIAGNOSTIC IMAGING REPORT ---
GALLBLADDER-ABD LIMITED CLINICAL HISTORY: elevated bili nausea. Vomiting. TECHNIQUE: Ultrasound COMPARISON STUDY: None FINDINGS: Normal gallbladder. Common bile duct 5 mm. Liver is uniform with a component of mild fatty infiltration. Pancreas is poorly seen due to overlying bowel content. Right kidney is negative for hydronephrosis. IMPRESSION: 1. Mild fatty infiltration of liver. 2. Normal gallbladder. 3. Normal caliber bile ducts. The above report was generated using voice recognition software. It may contain grammatical, syntax or spelling errors. Electronically signed by: Vickey Arias M.D. 06/07/2017 2:35 PM Dictated Date/Time: 06/07/2017 2:34 PM
[2017-06-07] MEDS ORDERED: GI COCKTAIL PO STA (15:14)
[2017-06-07 15:16] LABS: URINE APPEARANCE CLEAR (CLEAR); URINE BILIRUBIN NEG (NEG); URINE COLOR YELLOW; URINE NITRITE NEG (NEG); URINE PH 6.5 (4.5-7.5); UROBILINOGEN NEG (NEG); ZZUR CULT IF INDIC CLEAN CATCH NO
[2017-06-07 15:17] LABS: MANUAL MICROSCOPIC REQUIRED? NO; REVIEW REQ? NO
[2017-06-07] MEDS ORDERED: ALUMINUM/MAGNESIUM SUSP 30 ML UDC ONE (15:24)
[2017-06-07] MEDS ORDERED: LIDOCAINE HCL 2% VISC SOLN 20 ML UDC ONE (15:24)
[2017-06-07] MEDS ORDERED: ONDA4TAB46 PO (15:44)
[2017-06-07] MEDS ORDERED: FAMO20TA11 PO (15:44)
[2017-06-07 15:57] VITALS: BP 117/64; PULSE 56; O2SAT 92
--- NOTE | 2017-06-07 16:34 | EMERGENCY ROOM VISIT NOTE ---
History Report prepared by Alice: Lakeisha Larose Under the Supervision of: Sandra JonesO. First contact with patient: 09:27 Chief Complaint: VOMITING Stated Complaint: THROWING UP EVERYTHING FOR 3 DAYS Nursing Triage Summary: Patient reports he has beny beltran was here for an endo procedure and was told this epigastric pain he had been having may be his heart so patient sent for cardiac clearance prior states he was sent to [place] from here after his cath because of the extent of his blockages. States he had mutiple caths at [place], with the second cath at [place] patient got extensive bruising to left groin and abdomen. Patient also has scrotal swelling. Patient sent home this past Monday and states he has not been able to eat or drink or tolerate any medications since coming home on Monday. Patient denies any cardiac symptoms today. History of Present Illness The patient is a 72 year old male who presents to the Emergency Room with complaints of intermittent vomiting for the past 3 days. The patient had an NSTEMI in May and had a cardiac stent placed at [facility]. He returned to the hospital June 02 and was transferred back down to [facility] for unstable angina. He was discharged from [facility] 3 days ago. The patient states that since he was discharged he has been unable to eat or drink anything. Every time that he tries to eat or drink, he vomits it back up. He is unable to keep his oral medications down as he is having pain around his umbilicus. The patient also reports some upper abdominal pain. He denies fevers , chest pain, shortness of breath, and diarrhea. He is taking aspirin and Plavix. He notes that none of these symptoms feel like his previous MA/ unstable angina. Source of History: patient Onset: 3 days ago Position: abdomen Quality: other (vomiting) Timing: intermittent Modifying Factors (Worsening): eating, drinking Associated Symptoms: + abdominal pain, No fevers, No chest pain, No SOB, No diarrhea Review of Systems See HPI for pertinent positives & negatives. A total of 10 systems reviewed and were otherwise negative. 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 (18) Unstable angina Surgical Problems: (1) History of lumbar surgery (2) History of right shoulder replacement (3) History of temporomandibular joint syndrome (4) Hx of transurethral resection of prostate Family History Cancer Heart disease Kidney disease Social History Smoking Status: Former Smoker Alcohol Use: none Marital Status: Housing Status: lives with significant other Occupation Status: retired Current/Historical Medications Scheduled Allopurinol (Allopurinol), 100 MG PO DAILY Arformoterol Tartrate (Brovana), 15 MCG NEB BID Aspirin (Aspir-81), 81 MG PO QAM Atorvastatin (Lipitor), 80 MG PO QPM Budesonide (Inhalation) (Pulmicort Respules 0.5MG/2ML), 2 ML NEB BID Cholecalciferol (Vitamin D3), 2,000 INTER.UNIT PO QPM Clopidogrel Bisulfate (Clopidogrel), 75 MG PO DAILY Cyanocobalamin (Cyanocobalamin), 1,000 MCG IM MONTHLY Famotidine (Pepcid), 20 MG PO DAILY Ferrous Sulfate (Ferrous Sulfate), 325 MG PO QPM Home O2 Therapy (Oxygen), 3.5 LITERS NA HS Isosorbide Mononitrate Ext Rel (Imdur Ext Rel), 30 MG PO DAILY Metoprolol Tartrate (Lopressor), 25 MG PO BID Multivitamin (Multivitamin), 1 TAB PO DAILY Nitroglycerin (Nitrostat), 0.4 MG UT PRN Omeprazole (Prilosec), 20 MG PO BID Oxybutynin Chloride (Ditropan), 5 MG PO BID Pregabalin (Lyrica), 100 MG PO BID Valacyclovir Hcl (Valtrex), 1 GM PO DAILY Scheduled PRN Acetaminophen W/ Codeine (Tylenol W/Codeine #3), 1 TAB PO Q6H PRN for Pain Albuterol Sulf (Proventil 0.083% 2.5MG/3ML), 2.5 MG NEB HS PRN for SOB/Wheezing Azithromycin (Azithromycin), 1 DOSE PO UD PRN for COPD RESCUE Eucerin (Eucerin), 1 APPLN TOP DAILY PRN for DRY SKIN Hydrocortisone Acetate (Rectal (Anusol-Hc), 25 MG IN BID PRN for Hemorrhoids Ipratropium-Albuterol (Combivent Respimat), 1 PUFF INH QID PRN for Cough/ Wheezing Lorazepam (Lorazepam), 0.5 MG PO TID PRN for Anxiety Ondansetron Hcl (Zofran), 4 MG PO TID PRN for Nausea Prednisone (Deltasone), 20 MG PO UD PRN for COPD/Asthma Rescue Kit Sennosides-Docusate Sodium (Stool Softener Plus Laxat), 1 TAB PO DAILY PRN for Constipation Triamcinolone Acet (Aristocort 0.1%), 1 APPLN TOP UD PRN for Itching Allergies Coded Allergies: Benzocaine (Verified Allergy, Severe, SLOUGHING OF SKIN, 06/07/17) Clindamycin (Verified Allergy, Intermediate, RASH, 06/07/17) Clobetasol (Verified Allergy, Unknown, ITCHING, 06/07/17) Doxycycline (Verified Allergy, Unknown, RASH, 06/07/17) Penicillins (Verified Allergy, Unknown, HIVES, 06/07/17) Phenylethylamine (Verified Allergy, Unknown, ITCHING, 06/07/17) Tea Tree Oil (Verified Allergy, Unknown, ITCHING, 06/07/17) Physical Exam Vital Signs Date Time Temp Pulse Resp B/P (MAP) Pulse Ox O2 Delivery O2 Flow Rate FiO2 06/07/17 15:57 56 10 117/64 92 06/07/17 15:32 59 15 117/64 95 Nasal Cannula 2.0 06/07/17 14:45 53 10 131/76 95 Nasal Cannula 2.0 06/07/17 13:02 56 06/07/17 13:00 57 14 139/80 93 Room Air 06/07/17 12:41 57 20 129/85 96 Room Air 06/07/17 10:30 58 134/81 93 Room Air 06/07/17 10:09 66 20 125/78 95 Room Air 06/07/17 09:09 64 06/07/17 08:50 36.7 69 18 117/80 95 Room Air Physical Exam GENERAL: alert, sitting up in bed, disheveled, well appearing, well nourished, no distress, non-toxic EYE EXAM: normal conjunctiva OROPHARYNX: no exudate, no erythema, lips, buccal mucosa, and tongue normal and mucous membranes are moist NECK: supple, no nuchal rigidity, no adenopathy, non-tender LUNGS: Clear to auscultation. Normal chest wall mechanics HEART: no murmurs, S1 normal and S2 normal ABDOMEN: abdomen soft, tender to palpation of infraumbilical region with bruising tracking into scrotum bilaterally/penis and into the left mid-thigh, normo-active bowel sounds, no masses, no rebound or guarding. : Swollen edematous scrotum with bruising to bilateral scrotum and penis, no discharge. BACK: Back is symmetrical on inspection and there is no deformity, no CVA tenderness. Bilateral upper and mid-thoracic reproducible tenderness. SKIN: no rashes and no bruising UPPER EXTREMITIES: upper extremities are grossly normal. LOWER EXTREMITIES: No pitting edema. DP 2/4, gross sensation intact, full active and passive ROM of all joints. NEURO EXAM: Normal sensorium, cranial nerves II-XII grossly intact, normal speech, no gross weakness of arms, no gross weakness of legs. Medical Decision & Procedures ER Provider Diagnostic Interpretation: Repeat ECG shows sinus bradycardia at 51, normal axis, no ectopy, T-wave flattening in inferior lead, unchanged from previous. Radiology results as stated below per my review and the radiologist's interpretation: (TESTICULAR) SCROTUM-CONT HISTORY: Pain pain in testicles/sp cath w/ likely hematoma COMPARISON: None. FINDINGS: Right testis: Maximum dimension 3.8 cm. Normal vascular flow. Right centered hydrocele. Normal right epididymis. Left testis: Maximum dimension 3.9 cm. Normal vascular flow. Moderate hydrocele. Normal left epididymis. IMPRESSION: 1. Normal testes bilaterally. 2. Moderate bilateral hydroceles. 3. Normal epididymis bilaterally. 4. Moderate scrotal wall edema and/or thickening The above report was generated using voice recognition software. It may contain grammatical, syntax or spelling errors. Electronically signed by: Vickey Arias M.D. 06/07/2017 12:24 PM Dictated Date/Time: 06/07/2017 12:23 PM ABDOMEN AND PELVIS CT WITHOUT CONTRAST CT DOSE: 1128.69 mGy.cm HISTORY: Epigastric pain. TECHNIQUE: Multiaxial CT images of the abdomen and pelvis were performed without contrast. A dose lowering technique was utilized adhering to the principles of ALARA. COMPARISON STUDY: Abdomen and pelvis CT 05/08/2017. FINDINGS: Bibasilar linear densities consistent with subsegmental atelectasis. No pneumoperitoneum. No pneumatosis. Bilateral total hip arthroplasties. This obscures the majority of the deep pelvic structures. Stable benign-appearing 4 cm lucent lesion within the left iliac wing. Focal laxity within the midline of the lower rectus abdominis muscles remains unchanged. This results in focal herniation of the intra-abdominal fat and a few small bowel loops. Mild subcutaneous fat stranding/contusion within the right groin. Patchy area of increased density within the left groin/inguinal canal which measures approximately 6 x 5 cm. This is consistent with a subcutaneous hematoma. This abuts the left common femoral vessels. This is only partially visualized due to metallic artifact. No evidence for extraperitoneal/retroperitoneal extension of the hemorrhage. Suspect a prior prostatectomy. The bladder is not well-visualized due to the metallic artifact. Colonic diverticulosis. Suboptimal evaluation for bowel pathology due to the lack of intravenous and oral contrast. However, there is no definite bowel wall thickening or obstruction. Moderate well-formed stool seen throughout the colon. Normal appendix. No retroperitoneal lymphadenopathy. An IVC filter is again noted. Focal aneurysmal dilatation of the infrarenal abdominal aorta measuring up to 3.4 cm. This remains unchanged. Small hiatus hernia. The unenhanced liver, spleen, adrenal glands, and pancreas are unremarkable. No renal stones. No hydronephrosis. Slight increased density within the gallbladder may be due to a recent contrast study. IMPRESSION: 1. Left groin/inguinal canal patchy hyperdensity measuring approximate 6 x 5 cm. This is consistent with a subcutaneous hematoma. No evidence for retroperitoneal/extraperitoneal extension. Of note, this is only partially visualized due to the extensive metallic artifact from the bilateral total hip arthroplasties. There is also small amount of hemorrhage/contusion within the right groin. 2. No bowel wall thickening or obstruction. 3. Stable 3.4 cm abdominal aortic aneurysm. 4. Additional findings as described above. Electronically signed by: Geovani Truner M.D. 06/07/2017 11:27 AM Dictated Date/Time: 06/07/2017 11:16 AM GALLBLADDER-ABD LIMITED CLINICAL HISTORY: elevated bili nausea. Vomiting. TECHNIQUE: Ultrasound COMPARISON STUDY: None FINDINGS: Normal gallbladder. Common bile duct 5 mm. Liver is uniform with a component of mild fatty infiltration. Pancreas is poorly seen due to overlying bowel content. Right kidney is negative for hydronephrosis. IMPRESSION: 1. Mild fatty infiltration of liver. 2. Normal gallbladder. 3. Normal caliber bile ducts. The above report was generated using voice recognition software. It may contain grammatical, syntax or spelling errors. Electronically signed by: Vickey Arias M.D. 06/07/2017 2:35 PM Dictated Date/Time: 06/07/2017 2:34 PM Laboratory Results 06/07/17 09:10 Red Blood Count 3.10, Mean Corpuscular Volume 99.4, Mean Corpuscular Hemoglobin 32.3, Mean Corpuscular Hemoglobin Concent 32.5, Mean Platelet Volume 9.9, Neutrophils (%) (Auto) 78.8, Lymphocytes (%) (Auto) 8.3, Monocytes (%) (Auto) 10.3, Eosinophils (%) (Auto) 2.0, Basophils (%) (Auto) 0.1, Neutrophils # (Auto ) 6.63, Lymphocytes # (Auto) 0.70, Monocytes # (Auto) 0.87, Eosinophils # (Auto ) 0.17, Basophils # (Auto) 0.01 06/07/17 09:10 Test 06/07/17 09:10 06/07/17 14:45 White Blood Count 8.42 K/uL (4.8-10.8) Red Blood Count 3.10 M/uL (4.7-6.1) Hemoglobin 10.0 g/dL (14.0-18.0) Hematocrit 30.8 % (42-52) Mean Corpuscular Volume 99.4 fL (80-100) Mean Corpuscular Hemoglobin 32.3 pg (25-34) Mean Corpuscular Hemoglobin Concent 32.5 g/dl (32-36) Platelet Count 201 K/uL (130-400) Mean Platelet Volume 9.9 fL (7.4-10.4) Neutrophils (%) (Auto) 78.8 % Lymphocytes (%) (Auto) 8.3 % Monocytes (%) (Auto) 10.3 % Eosinophils (%) (Auto) 2.0 % Basophils (%) (Auto) 0.1 % Neutrophils # (Auto) 6.63 K/uL (1.4-6.5) Lymphocytes # (Auto) 0.70 K/uL (1.2-3.4) Monocytes # (Auto) 0.87 K/uL (0.11-0.59) Eosinophils # (Auto) 0.17 K/uL (0-0.5) Basophils # (Auto) 0.01 K/uL (0-0.2) RDW Standard Deviation 56.2 fL (36.4-46.3) RDW Coefficient of Variation 15.6 % (11.5-14.5) Immature Granulocyte % (Auto) 0.5 % Immature Granulocyte # (Auto) 0.04 K/uL (0.00-0.02) Prothrombin Time 11.4 SECONDS (9.0-12.0) Prothromb Time International Ratio 1.1 (0.9-1.1) Activated Partial Thromboplast Time 30.4 SECONDS (21.0-31.0) Partial Thromboplastin Ratio 1.2 Anion Gap 12.0 mmol/L (3-11) Estimated GFR () 35.4 Estimated GFR (Non- 30.5 BUN/Creatinine Ratio 11.4 (10-20) Calcium Level 9.5 mg/dl (8.5-10.1) Total Bilirubin 1.5 mg/dl (0.2-1) Direct Bilirubin 0.4 mg/dl (0-0.2) Aspartate Amino Transf (AST/SGOT) 24 U/L (15-37) Alanine Aminotransferase (ALT/SGPT) 22 U/L (12-78) Alkaline Phosphatase 72 U/L (45-117) Total Protein 7.4 gm/dl (6.4-8.2) Albumin 3.8 gm/dl (3.4-5.0) Lipase 89 U/L (73-393) Urine Color YELLOW Urine Appearance CLEAR (CLEAR) Urine pH 6.5 (4.5-7.5) Urine Specific [place] 1.020 (1.000-1.030) Urine Protein NEG (NEG) Urine Glucose (UA) NEG (NEG) Urine Ketones NEG (NEG) Urine Occult Blood NEG (NEG) Urine Nitrite NEG (NEG) Urine Bilirubin NEG (NEG) Urine Urobilinogen NEG (NEG) Urine Leukocyte Esterase NEG (NEG) Urine WBC (Auto) 1-5 /hpf (0-5) Urine RBC (Auto) 0-4 /hpf (0-4) Urine Hyaline Casts (Auto) 0 /lpf (0-5) Urine Epithelial Cells (Auto) 5-10 /lpf (0-5) Urine Bacteria (Auto) NEG (NEG) Laboratory results per my review. Medications Administered Medications (Trade) Dose Ordered Sig/Chata Route Start Time Stop Time Status Last Admin Dose Admin Sodium Chloride 1,000 ml @ 999 mls/hr Q1H1M STAT IV 06/07/17 09:46 06/07/17 10:46 DC 06/07/17 10:05 999 MLS/HR Morphine Sulfate (MoRPHine SULFATE INJ) 6 mg NOW STAT IV 06/07/17 09:48 06/07/17 09:50 DC 06/07/17 10:09 6 MG Ondansetron HCl (Zofran Inj) 4 mg NOW STAT IV 06/07/17 09:48 06/07/17 09:50 DC 06/07/17 10:05 4 MG Al Hydroxide/Mg Hydroxide (Maalox Susp) 30 ml STK-MED ONCE .ROUTE 06/07/17 15:24 06/07/17 15:25 DC 06/07/17 15:31 30 ML Lidocaine HCl (Viscous Lidocaine 2% Soln) 20 ml STK-MED ONCE .ROUTE 06/07/17 15:24 06/07/17 15:25 DC 06/07/17 15:32 20 ML ECG Indication: nausea Rate (beats per minute): 60 Rhythm: normal sinus Findings: other (poor baseline in inferior; flipped T-wave in lead 3) Comparison ECG Date: 06/01/17 Change: no significant change ED Course ED COURSE: Vital signs were reviewed and showed normal vitals The patients medical record was reviewed The above diagnostic studies were performed and reviewed. ED treatments and interventions as stated above. 0935: The patient was evaluated in room A4B. A complete history and physical examination was performed. 0946: NSS 1000 ml @ 999 mls/hr IV 0948: Zofran 4 mg IV, Morphine sulfate 6 mg IV 1251: I updated the patient on his results and he is going to get an US. 1322: I reassessed the patient. He is having mid upper thoracic back pain and taking nitro. It is not helping. This does not feel like his previous MA. He has not had chest pain or shortness of breath in the past 24 hours. He has bilateral upper and mid-thoracic reproducible tenderness. 1514: GI cocktail 24 ml PO 1532: Upon reevaluation, the patient has had complete resolution of his symptoms with the GI cocktail. He has absolutely no chest pain or shortness of breath. I discussed my findings with the patient and he understands and agrees with the treatment plan. Based on the patients age, coexisting illnesses, exam and lab findings the decision to treat as an outpatient was made. The patient remained stable while under my care. The patient appeared well at the time of discharge. Medical Decision Differential diagnoses includes but is not limited to gastritis, peptic ulcer disease, GERD, gallbladder disease, pancreatitis, small bowel obstruction, acute coronary syndrome, pericarditis, ischemic bowel, irritable bowel disease, irritable bowel syndrome, appendicitis, diverticulitis, malignancy, hernia, urinary tract infection, torsion, perforation, trauma, infectious. Patient is a 72 -year-old male up since the ER for abdominal pain associated with nausea and vomiting. He had one recent stent placed along with 2 transfers to [facility]. Denies any chest pain or shortness of breath. 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 CBC shows a hemoglobin at 10. Creatinine is slightly elevated at 2.1 off of a baseline of 1.7. T bili and direct bili were slightly elevated. Lipase is normal. UA and INR was negative. CT of the pelvis was unremarkable with the exception of hematomas in the groin which is likely secondary to his catheterization. Ultrasound of the right upper quadrant was unremarkable. Testicular ultrasound shows no acute findings. Patient was given a GI cocktail and had complete resolution of symptoms. Repeat EKG was unchanged. Patient tolerated oral liquids while in the ER. He was discharged with Pepcid and Zofran to follow up with PCP in 2 days. Discussed with Pt concerning signs and symptoms to watch out for. Pt was instructed to follow up with their PCP and discussed with the patient their option to return to the ED at anytime for persistent or worsening symptoms. The appropriate anticipatory guidance and out-patient management, including indications for return to the emergency department, were explained at length to the patient and understood. Medication Reconcilliation Current Medication List: was personally reviewed by me Blood Pressure Screening Patient's blood pressure: Normal blood pressure Impression Primary Impression: Gastritis Additional Impressions: Abdominal pain HERNANDEZ (acute kidney injury) Scribe Attestation The scribe's documentation has been prepared under my direction and personally reviewed by me in its entirety. I confirm that the note above accurately reflects all work, treatment, procedures, and medical decision making performed by me. Departure Information Dispostion Home / Self-Care Prescriptions Ondansetron Hcl (ZOFRAN) 4 Mg Tab 4 MG PO TID Y for Nausea, #30 TAB Prov: Bryn Hassan, DO 06/07/17 Famotidine (Pepcid) 20 Mg Tab 20 MG PO DAILY, #30 TAB Prov: Bryn Hassan, DO 06/07/17 Referrals Jacob Jones MD (PCP) Forms HOME CARE DOCUMENTATION FORM, IMPORTANT VISIT INFORMATION Patient Instructions Abdominal Pain - [facility] Additional Instructions Please follow up with your primary care docotr within the next 24 hours. Any worsening of your symptoms, please return to the ED immediately. This includes any fevers greater than 100.4, worsening pain, chest pain, shortness breath, persistent nausea, vomiting, unable to eat or drink, or any other concerning signs or symptoms from your standpoint. Please take Pepcid as prescribed. Please take Zofran as prescribed. Problem Qualifiers Primary Impression: Gastritis Gastritis type: unspecified gastritis Chronicity: acute Gastritis bleeding : without bleeding Qualified Codes: K29.00 - Acute gastritis without bleeding Additional Impressions: Abdominal pain Abdominal location: periumbilical Qualified Codes: R10.33 - Periumbilical pain
[2017-06-15] MEDS ORDERED: IMDSR60 PO (11:25)
[2017-06-15] MEDS ORDERED: NRV5 PO (11:25)
[2017-06-15] MEDS ORDERED: AMLO2.5T PO (11:36)
[2017-06-25] MEDS ORDERED: DOCU100C PO (07:00)
[2017-06-25] MEDS ORDERED: ALLO300T2 PO (07:00)
[2017-06-25] MEDS ORDERED: ASPCH81X PO (07:03)
[2017-06-25] MEDS ORDERED: MICO12CR TOP (07:03)
[2017-06-26] MEDS ORDERED: ZTHM250 PO (13:25)
== END 2017-06-07 15:55 | disposition home or self-care (01) ==
LOC: C.EDB 08:50 → C.EDA 15:55
DX: K29.00 Acute gastritis without bleeding (principal); R10.33 Periumbilical pain; N17.9 Acute kidney failure, unspecified; J44.9 Chronic obstructive pulmonary disease, unspecified; I12.9 Hypertensive chronic kidney disease with stage 1 through stage 4 chronic kidney disease, or unspecified chronic kidney disease; N18.3 Chronic kidney disease, stage 3 (moderate); I25.10 Atherosclerotic heart disease of native coronary artery without angina pectoris; K21.9 Gastro-esophageal reflux disease without esophagitis; I25.2 Old myocardial infarction; Z85.46 Personal history of malignant neoplasm of prostate; Z87.891 Personal history of nicotine dependence; Z87.01 Personal history of pneumonia (recurrent); Z98.61 Coronary angioplasty status; Z90.79 Acquired absence of other genital organ(s); Z96.649 Presence of unspecified artificial hip joint; Z96.611 Presence of right artificial shoulder joint; Z98.890 Other specified postprocedural states; Z79.02 Long term (current) use of antithrombotics/antiplatelets; Z79.82 Long term (current) use of aspirin; Z79.899 Other long term (current) drug therapy

== ENCOUNTER 2017-06-09 14:05 | Emergency (ER) | payer OTHER, MEDICARE ==
[~2017-06-09] VITALS: Ht 172.7 cm; Wt 96.8 kg
[~2017-06-09 14:05] MED LIST changes: +ACET-1101 PO; +ATOR-26 PO; +FAMO20TA11 PO; -LPT40 PO; +ONDA4TAB46 PO; +ZPAK PO
[2017-06-09 14:10] VITALS: TEMP 36.6; Ht 172.7 cm; Wt 96.8 kg
[2017-06-09] MEDS ORDERED: SODIUM CHLORIDE 0.9% 1000ML 1,000 ML IV STA (14:49)
[2017-06-09 14:50] VITALS: O2SAT 98
[2017-06-09 15:00] LABS: BASO % 0.3 %; BASO ABS # 0.02 K/uL (0-0.2); COMPLETE YES; EOS % 1.7 %; HEMATOCRIT 30.1 % (42-52); IG% 0.4 %; LYMPH % 12.1 %; LYMPH ABS # 0.86 K/uL (1.2-3.4); MEAN CELL VOLUME 99.3 fL (80-100); MEAN CORPUSCULAR HGB CONC 33.2 g/dl (32-36); MEAN PLATELET VOLUME 9.4 fL (7.4-10.4); MONO % 9.2 %; NEUT % 76.3 %; PLATELET COUNT 205 K/uL (130-400); RED BLOOD COUNT 3.03 M/uL (4.7-6.1); WHITE BLOOD COUNT 7.09 K/uL (4.8-10.8)
[2017-06-09 15:14] LABS: ALT/SGPT 23 U/L (12-78); AST/SGOT 19 U/L (15-37); BLOOD UREA NITROGEN 19 mg/dl (7-18); BUN/CREATININE RATIO 8.5 (10-20); CARBON DIOXIDE 23 mmol/L (21-32); CHLORIDE 109 mmol/L (98-107); GLUCOSE 97 mg/dl (70-99); SODIUM 140 mmol/L (136-145)
[2017-06-09 15:19] LABS: ALKALINE PHOSPHATASE 77 U/L (45-117); CKMB/CK RATIO 1.7 (0-3.0)
--- NOTE | 2017-06-09 15:41 | DIAGNOSTIC IMAGING REPORT ---
CHEST ONE VIEW PORTABLE CLINICAL HISTORY: Chest pain. COMPARISON STUDY: Chest radiograph May 31, 2017. FINDINGS: Bilateral shoulder arthroplasties are incidentally noted. There is no pneumothorax or pleural effusion. There is no consolidation to suggest pneumonia. Cardiomegaly is unchanged. Pulmonary vascularity is normal. IMPRESSION: No acute cardiopulmonary findings. Stable cardiomegaly. Electronically signed by: Albin Graves M.D. 06/09/2017 3:40 PM Dictated Date/Time: 06/09/2017 3:12 PM
[2017-06-09 18:00] VITALS: BP 132/89; O2SAT 93
[2017-06-09] MEDS ORDERED: CLOPIDOGREL BISULFATE 75 MG TAB PO ONE (18:45)
[2017-06-09 18:49] VITALS: PULSE 60
--- NOTE | 2017-06-09 20:00 | EMERGENCY ROOM VISIT NOTE ---
History Report prepared by Alice: Arelis Alatorre Under the Supervision of: Dr. Moody Zavaleta M.D. First contact with patient: 14:35 Chief Complaint: CHEST PAIN Stated Complaint: VOMITTING,CHEST PAIN History of Present Illness The patient is a 72 year old male who presents to the Emergency Room with complaints of intermittent chest pain beginning today. The patient states that he was at his PCPs office today when he felt generalized chest pain. He reports that he took a nitroglycerin and his pain was relieved. He notes that he had a stent placed just over 2 weeks ago and 8 days ago he had a cardiac catheterization. The patient states that the chest pain he is having today is different chest pain he has had before. He complains of nausea and vomiting and notes that he has not been able to eat in a week without vomiting. The patient reports that he has been having pain in the center of his back and abdominal pain. He states that he has had multiple ultrasounds and and a CT of the abdomen done recently that were normal. Pt denies LOC, headache, fevers, chills , diaphoresis, visual changes, neck pain, breathing difficulties, back pain, melena, hematochezia, urinary symptoms, numbness, weakness, lymphadenopathy, rash, or other complaints. The patient reports that he has been scoped before and there were Sepulveda's found. He notes that he is on Aspirin and Plavix. Pt notes that he has neuropathy. Source of History: patient Onset: today Position: chest Timing: intermittent Modifying Factors (Relieving): other (nitroglycerin) Review of Systems See HPI for pertinent positives and negatives. A total of ten systems were reviewed and were otherwise negative. 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 (18) Unstable angina Surgical Problems: (1) History of lumbar surgery (2) History of right shoulder replacement (3) History of temporomandibular joint syndrome (4) Hx of transurethral resection of prostate Family History Cancer Heart disease Kidney disease Social History Smoking Status: Former Smoker Alcohol Use: none Marital Status: Housing Status: lives with significant other Occupation Status: retired Current/Historical Medications Scheduled Allopurinol (Allopurinol), 100 MG PO DAILY Arformoterol Tartrate (Brovana), 15 MCG NEB BID Aspirin (Aspir-81), 81 MG PO QAM Atorvastatin (Lipitor), 80 MG PO QPM Budesonide (Inhalation) (Pulmicort Respules 0.5MG/2ML), 2 ML NEB BID Cholecalciferol (Vitamin D3), 2,000 INTER.UNIT PO QPM Clopidogrel Bisulfate (Clopidogrel), 75 MG PO DAILY Cyanocobalamin (Cyanocobalamin), 1,000 MCG IM MONTHLY Famotidine (Pepcid), 20 MG PO DAILY Ferrous Sulfate (Ferrous Sulfate), 325 MG PO QPM Home O2 Therapy (Oxygen), 3.5 LITERS NA HS Isosorbide Mononitrate Ext Rel (Imdur Ext Rel), 30 MG PO DAILY Metoprolol Tartrate (Lopressor), 25 MG PO BID Multivitamin (Multivitamin), 1 TAB PO DAILY Nitroglycerin (Nitrostat), 0.4 MG UT PRN Omeprazole (Prilosec), 20 MG PO BID Oxybutynin Chloride (Ditropan), 5 MG PO BID Pregabalin (Lyrica), 100 MG PO BID Valacyclovir Hcl (Valtrex), 1 GM PO DAILY Scheduled PRN Acetaminophen W/ Codeine (Tylenol W/Codeine #3), 1 TAB PO Q6H PRN for Pain Albuterol Sulf (Proventil 0.083% 2.5MG/3ML), 2.5 MG NEB HS PRN for SOB/Wheezing Azithromycin (Azithromycin), 1 DOSE PO UD PRN for COPD RESCUE Eucerin (Eucerin), 1 APPLN TOP DAILY PRN for DRY SKIN Hydrocortisone Acetate (Rectal (Anusol-Hc), 25 MG AL BID PRN for Hemorrhoids Ipratropium-Albuterol (Combivent Respimat), 1 PUFF INH QID PRN for Cough/ Wheezing Lorazepam (Lorazepam), 0.5 MG PO TID PRN for Anxiety Ondansetron Hcl (Zofran), 4 MG PO TID PRN for Nausea Prednisone (Deltasone), 20 MG PO UD PRN for COPD/Asthma Rescue Kit Sennosides-Docusate Sodium (Stool Softener Plus Laxat), 1 TAB PO DAILY PRN for Constipation Triamcinolone Acet (Aristocort 0.1%), 1 APPLN TOP UD PRN for Itching Allergies Coded Allergies: Benzocaine (Verified Allergy, Severe, SLOUGHING OF SKIN, 06/09/17) Clindamycin (Verified Allergy, Intermediate, RASH, 06/09/17) Clobetasol (Verified Allergy, Unknown, ITCHING, 06/09/17) Doxycycline (Verified Allergy, Unknown, RASH, 06/09/17) Penicillins (Verified Allergy, Unknown, HIVES, 06/09/17) Phenylethylamine (Verified Allergy, Unknown, ITCHING, 06/09/17) Tea Tree Oil (Verified Allergy, Unknown, ITCHING, 06/09/17) Physical Exam Vital Signs Date Time Temp Pulse Resp B/P (MAP) Pulse Ox O2 Delivery O2 Flow Rate FiO2 06/09/17 18:49 60 06/09/17 18:00 88 18 132/89 93 Room Air 06/09/17 16:08 58 138/90 93 Room Air 06/09/17 14:51 Room Air 06/09/17 14:50 98 Room Air 06/09/17 14:25 65 06/09/17 14:10 36.6 60 20 122/76 96 Room Air Physical Exam GENERAL: Awake, alert, well-appearing, in no distress HENT: Normocephalic, atraumatic. Oropharynx unremarkable. EYES: Normal conjunctiva. Sclera non-icteric. NECK: Supple. No nuchal rigidity. FROM. No JVD. RESPIRATORY: Clear to auscultation. CARDIAC: Regular rate, normal rhythm. Extremities warm and well perfused. Pulses equal. ABDOMEN: Soft, non-distended. No tenderness to palpation. No rebound or guarding. No masses. RECTAL: Deferred. MUSCULOSKELETAL: Chest examination reveals no tenderness. The back is symmetrical on inspection without obvious abnormality. There is no CVA tenderness to palpation. No joint edema. LOWER EXTREMITIES: Calves are equal size bilaterally and non-tender. No edema. No discoloration. NEURO: Normal sensorium. No sensory or motor deficits noted. SKIN: No rash or jaundice noted. Significant bruising to the left groin and proximal thigh, there is also significant bruising to the left flank and right forearm. Medical Decision & Procedures ER Provider Diagnostic Interpretation: X-ray: Per my interpretation, radiologist review. CHEST ONE VIEW PORTABLE FINDINGS: Bilateral shoulder arthroplasties are incidentally noted. There is no pneumothorax or pleural effusion. There is no consolidation to suggest pneumonia. Cardiomegaly is unchanged. Pulmonary vascularity is normal. IMPRESSION: No acute cardiopulmonary findings. Stable cardiomegaly. Electronically signed by: Albin Graves M.D. 06/09/2017 3:40 PM Dictated Date/Time: 06/09/2017 3:12 PM Laboratory Results 06/09/17 14:35 Red Blood Count 3.03, Mean Corpuscular Volume 99.3, Mean Corpuscular Hemoglobin 33.0, Mean Corpuscular Hemoglobin Concent 33.2, Mean Platelet Volume 9.4, Neutrophils (%) (Auto) 76.3, Lymphocytes (%) (Auto) 12.1, Monocytes (%) (Auto) 9.2, Eosinophils (%) (Auto) 1.7, Basophils (%) (Auto) 0.3, Neutrophils # (Auto) 5.41, Lymphocytes # (Auto) 0.86, Monocytes # (Auto) 0.65, Eosinophils # (Auto) 0.12, Basophils # (Auto) 0.02 06/09/17 14:35 Test 06/09/17 14:35 06/09/17 17:45 White Blood Count 7.09 K/uL (4.8-10.8) Red Blood Count 3.03 M/uL (4.7-6.1) Hemoglobin 10.0 g/dL (14.0-18.0) Hematocrit 30.1 % (42-52) Mean Corpuscular Volume 99.3 fL (80-100) Mean Corpuscular Hemoglobin 33.0 pg (25-34) Mean Corpuscular Hemoglobin Concent 33.2 g/dl (32-36) Platelet Count 205 K/uL (130-400) Mean Platelet Volume 9.4 fL (7.4-10.4) Neutrophils (%) (Auto) 76.3 % Lymphocytes (%) (Auto) 12.1 % Monocytes (%) (Auto) 9.2 % Eosinophils (%) (Auto) 1.7 % Basophils (%) (Auto) 0.3 % Neutrophils # (Auto) 5.41 K/uL (1.4-6.5) Lymphocytes # (Auto) 0.86 K/uL (1.2-3.4) Monocytes # (Auto) 0.65 K/uL (0.11-0.59) Eosinophils # (Auto) 0.12 K/uL (0-0.5) Basophils # (Auto) 0.02 K/uL (0-0.2) RDW Standard Deviation 56.5 fL (36.4-46.3) RDW Coefficient of Variation 15.9 % (11.5-14.5) Immature Granulocyte % (Auto) 0.4 % Immature Granulocyte # (Auto) 0.03 K/uL (0.00-0.02) Anion Gap 8.0 mmol/L (3-11) Est Creatinine Clear Calc Drug Dose 34.2 ml/min Estimated GFR () 33.4 Estimated GFR (Non- 28.9 BUN/Creatinine Ratio 8.5 (10-20) Calcium Level 9.0 mg/dl (8.5-10.1) Total Bilirubin 1.2 mg/dl (0.2-1) Direct Bilirubin 0.3 mg/dl (0-0.2) Aspartate Amino Transf (AST/SGOT) 19 U/L (15-37) Alanine Aminotransferase (ALT/SGPT) 23 U/L (12-78) Alkaline Phosphatase 77 U/L (45-117) Total Creatine Kinase 147 U/L (39-308) Creatine Kinase MB 2.5 ng/ml (0.5-3.6) Creatine Kinase MB Ratio 1.7 (0-3.0) Total Protein 7.3 gm/dl (6.4-8.2) Albumin 3.6 gm/dl (3.4-5.0) Lipase 110 U/L (73-393) Troponin I < 0.015 ng/ml (0-0.045) Laboratory results reviewed by me Medications Administered Medications (Trade) Dose Ordered Sig/Chata Route Start Time Stop Time Status Last Admin Dose Admin Sodium Chloride 1,000 ml @ 125 mls/hr Q8H STAT IV 06/09/17 14:49 06/09/17 19:46 DC 06/09/17 15:00 125 MLS/HR Clopidogrel Bisulfate (plAVix TAB) 75 mg NOW ONCE PO 06/09/17 18:45 06/09/17 18:46 DC 06/09/17 19:08 75 MG ECG Indication: chest pain Rate (beats per minute): 63 Rhythm: sinus rhythm Findings: 1st degree AV block, no acute ischemic change, no ectopy Change: EKG #2: Sinus bradycardia, 56, 1st degree AV block, no ectopy, no ischemia. When compared to prior, no change. ED Course 1435: The patient was evaluated in room B2. A complete history and physical exam was performed. 1449: Sodium Chloride 1000 ml @ 125 mls/hr IV. 1707: I reevaluated and updated the patient. He does not want to stay in the hospital but agreed to a repeat troponin. 1845: Plavix Tab 75mg PO. 1847: I reevaluated and updated the patient. 185: I reevaluated the patient. Discussed results and discharge instructions: He verbalized understanding and agreement. The patient is ready for discharge. Medical Decision Triage Nursing notes reviewed. The patient's presentation and history were concerning for chest pain. Etiologies such as cardiac ischemia, aortic dissection, pulmonary embolism, pneumonia, pneumothorax, musculoskeletal, infections, gastrointestinal, as well as others were entertained. Patient was evaluated. He had chest pain was directed here by his primary physician. The patient has had an extensive treatment recently regarding his heart. He had a nonischemic ECG. His CBC, chemistry panel, and cardiac markers were negative. The patient was pain-free. His chest x-ray was unremarkable. He had a benign abdominal examination. He did not want to stay in the hospital. I recommended admission however he felt well and did not want to stay in the hospital. He wanted to follow-up as an outpatient and believes he may actually traveled [place] for a second opinion. I did ask him to stay at least for a second troponin and ECG. He agreed. These were unchanged from the first. The patient hadn't taken his Plavix yet today and was given a dose. The patient notes that he has had problems with GI upset and vomiting. He has had a recent CT scan and ultrasound. These were unremarkable. The patient needs further GI evaluation. I did advise him to date in the hospital again as he notes having issues with vomiting. I was concerned as he may not be able to tolerate his medicine, especially the Plavix and would be at risk for stent thrombosis. I discussed this at length with him and he still wished to be discharged to follow-up. The patient has demonstrated no significant defect in the decision-making capacity to make choices. The encounter had a good level of communication with language the patient can easily understand. I feel trust was present and conveyed that our action/intentions were the best interest of the patient. I offered to involve the patient's primary service. The patient was given all relevant information and reiterated the explained risks and benefits. The patient explained the reasoning for refusing treatment clearly. The patient possesses and expresses a set of values and goals, the ability to communicate and understand, and an ability to reason and deliberate. Despite acting emphatically, attentively and with the utmost patient's the patient declined further treatment. I offered options, negotiated, and explored every reasonable choice. I must respect the patient's autonomy and that they feel that their choices are best for them despite the associated risks of leaving against medical advice. The patient was educated about the findings as listed above. All questions were answered and the patient was pleased with the treatment. Return instructions were outlined and the patient was discharged in stable condition. The patient was referred to his PCP for follow-up for a recheck of the current condition. Medication Reconcilliation Current Medication List: was personally reviewed by me Blood Pressure Screening Patient's blood pressure: Normal blood pressure Blood pressure disposition: Did not require urgent referral Impression Primary Impression: Substernal chest pain Scribe Attestation The scribe's documentation has been prepared under my direction and personally reviewed by me in its entirety. I confirm that the note above accurately reflects all work, treatment, procedures, and medical decision making performed by me. Departure Information Dispostion Home / Self-Care Referrals Jacob Jones MD (PCP) Forms Call Back Authorization, HOME CARE DOCUMENTATION FORM, IMPORTANT VISIT INFORMATION Patient Instructions My [facility] Additional Instructions CHEST PAIN INSTRUCTIONS: Acetaminophen(Tylenol) may be used for fever or pain. Use 1000mg every six hours as needed. Avoid using more than 4000mg in a 24 hour period. Rest and drink plenty of fluids as tolerated. Continue current medications. Avoid strenuous activities and anything that worsens your pain. Return to the ER immediately for worsening or persistent chest pain, abdominal pain, vomiting, fevers, chest pains, difficulty breathing, worsening of your condition, or as needed. Follow up with your primary physician Monday for a recheck of your current condition.
[2017-06-15] MEDS ORDERED: IMDSR60 PO (11:25)
[2017-06-15] MEDS ORDERED: NRV5 PO (11:25)
[2017-06-15] MEDS ORDERED: AMLO2.5T PO (11:36)
[2017-06-25] MEDS ORDERED: ALLO300T2 PO (07:00)
[2017-06-25] MEDS ORDERED: DOCU100C PO (07:00)
[2017-06-25] MEDS ORDERED: MICO12CR TOP (07:03)
[2017-06-25] MEDS ORDERED: ASPCH81X PO (07:03)
[2017-06-26] MEDS ORDERED: ZTHM250 PO (13:25)
== END 2017-06-09 19:15 | disposition home or self-care (01) ==
LOC: C.EDB 14:07
DX: R07.2 Precordial pain (principal); I12.9 Hypertensive chronic kidney disease with stage 1 through stage 4 chronic kidney disease, or unspecified chronic kidney disease; J44.9 Chronic obstructive pulmonary disease, unspecified; N18.3 Chronic kidney disease, stage 3 (moderate); I25.10 Atherosclerotic heart disease of native coronary artery without angina pectoris; K57.90 Diverticulosis of intestine, part unspecified, without perforation or abscess without bleeding; K21.9 Gastro-esophageal reflux disease without esophagitis; Z87.01 Personal history of pneumonia (recurrent); Z85.46 Personal history of malignant neoplasm of prostate; Z80.9 Family history of malignant neoplasm, unspecified; Z82.49 Family history of ischemic heart disease and other diseases of the circulatory system; Z84.1 Family history of disorders of kidney and ureter; Z87.891 Personal history of nicotine dependence; Z79.82 Long term (current) use of aspirin; Z79.02 Long term (current) use of antithrombotics/antiplatelets

== ENCOUNTER 2017-06-12 16:17 | Inpatient (IN) | payer OTHER, MEDICARE ==
[~2017-06-12] VITALS: Ht 167.6 cm; Wt 95.2 kg
[2017-06-12] MEDS ORDERED: PANT20TA PO (16:22)
--- NOTE | 2017-06-12 16:45 | EMERGENCY ROOM VISIT NOTE ---
History Report prepared by Alice: Robin Kingston Under the Supervision of: Dr. Boaz Jules D.O. First contact with patient: 16:20 Stated Complaint: cp History of Present Illness The patient is a 72 year old male who presents to the Emergency Room with complaints of resolved chest pain that began an hour ago. He describes the pain as an ache. The patient states that he woke up yesterday and was experiencing chills and shaking. He states that he tried to warm up, but could not stop shaking. The patient states that he calmed down and used covers and was able to stop shaking. He states that he woke up today and felt normal. The patient states that he went to make food, which he describes as mild exertion, and started to experienced chest pain. The patient states that he sat down and took 2 nitroglycerin and took 5 aspirin. He states that the pain has improved, but is still mildly present. Per EMS, the patient was given fluids and his pressure was brought up form 68 to 90 systolically. He admits to a history of a lesion on his heart. He states that he went to [place] to have a stent to put on the right side of his heart. The patient states that they successfully placed a stent through his right wrist. He states that he went to have the left side stent done on at [facility] on June 07, but had unsuccessful placement due to complications with the right artery and the femoral artery. He states that the femoral artery bled into his scrotum and caused testicular swelling. The patient states that he had lab work done and was told that he did not need a stent on his left side. He states that he was not given a stent and was sent home. The patient states that he did not eat for a week due to a loss of appetite and lost thirteen pounds. The patient denies any radiation of pain to his back. Source of History: patient Onset: an hour ago Position: chest Quality: ache Timing: resolved Modifying Factors (Worsening): exertion Modifying Factors (Relieving): other (Nitro and Aspirin) Associated Symptoms: No back pain Review of Systems See HPI for pertinent positives & negatives. A total of 10 systems reviewed and were otherwise negative. 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 (18) Unstable angina Surgical Problems: (1) History of lumbar surgery (2) History of right shoulder replacement (3) History of temporomandibular joint syndrome (4) Hx of transurethral resection of prostate Family History Cancer Heart disease Kidney disease Social History Smoking Status: Former Smoker Alcohol Use: none Marital Status: Housing Status: lives with significant other Occupation Status: retired Current/Historical Medications Scheduled Allopurinol (Allopurinol), 100 MG PO DAILY Arformoterol Tartrate (Brovana), 15 MCG NEB BID Aspirin (Aspir-81), 81 MG PO QAM Atorvastatin (Lipitor), 80 MG PO QPM Budesonide (Inhalation) (Pulmicort Respules 0.5MG/2ML), 2 ML NEB BID Cholecalciferol (Vitamin D3), 2,000 INTER.UNIT PO QPM Clopidogrel Bisulfate (Clopidogrel), 75 MG PO DAILY Cyanocobalamin (Cyanocobalamin), 1,000 MCG IM MONTHLY Famotidine (Pepcid), 20 MG PO DAILY Ferrous Sulfate (Ferrous Sulfate), 325 MG PO QPM Home O2 Therapy (Oxygen), 3 LITERS NA HS Isosorbide Mononitrate Ext Rel (Imdur Ext Rel), 30 MG PO DAILY Metoprolol Tartrate (Lopressor), 25 MG PO BID Multivitamin (Multivitamin), 1 TAB PO DAILY Nitroglycerin (Nitrostat), 0.4 MG UT PRN Omeprazole (Prilosec), 20 MG PO BID Pantoprazole Sodium (Protonix), 20 MG PO DAILY Valacyclovir Hcl (Valtrex), 1 GM PO DAILY Scheduled PRN Acetaminophen W/ Codeine (Tylenol W/Codeine #3), 1 TAB PO Q6H PRN for Pain Albuterol Sulf (Proventil 0.083% 2.5MG/3ML), 2.5 MG NEB HS PRN for SOB/Wheezing Azithromycin (Azithromycin), 1 DOSE PO UD PRN for COPD RESCUE Eucerin (Eucerin), 1 APPLN TOP DAILY PRN for DRY SKIN Hydrocortisone Acetate (Rectal (Anusol-Hc), 25 MG AK BID PRN for Hemorrhoids Ipratropium-Albuterol (Combivent Respimat), 1 PUFF INH QID PRN for Cough/ Wheezing Lorazepam (Lorazepam), 0.5 MG PO TID PRN for Anxiety Ondansetron Hcl (Zofran), 4 MG PO TID PRN for Nausea Prednisone (Deltasone), 20 MG PO UD PRN for COPD/Asthma Rescue Kit Sennosides-Docusate Sodium (Stool Softener Plus Laxat), 1 TAB PO DAILY PRN for Constipation Triamcinolone Acet (Aristocort 0.1%), 1 APPLN TOP UD PRN for Itching Allergies Coded Allergies: Benzocaine (Verified Allergy, Severe, SLOUGHING OF SKIN, 06/12/17) Clindamycin (Verified Allergy, Intermediate, RASH, 06/12/17) Clobetasol (Verified Allergy, Unknown, ITCHING, 06/12/17) Doxycycline (Verified Allergy, Unknown, RASH, 06/12/17) Penicillins (Verified Allergy, Unknown, HIVES, 06/12/17) Phenylethylamine (Verified Allergy, Unknown, ITCHING, 06/12/17) Tea Tree Oil (Verified Allergy, Unknown, ITCHING, 06/12/17) Physical Exam Vital Signs Date Time Temp Pulse Resp B/P (MAP) Pulse Ox O2 Delivery O2 Flow Rate FiO2 06/12/17 20:00 130/93 06/12/17 19:48 130/67 06/12/17 19:47 62 17 06/12/17 19:30 164/92 06/12/17 19:17 55 15 06/12/17 19:01 132/92 06/12/17 18:47 57 15 06/12/17 18:31 99/73 06/12/17 18:17 63 18 92 06/12/17 18:15 122/70 06/12/17 18:00 110/67 06/12/17 17:47 68 16 93 06/12/17 17:30 108/72 06/12/17 17:30 58 18 108/72 92 Room Air 06/12/17 17:17 57 15 91 06/12/17 17:15 92/66 06/12/17 17:00 95/67 06/12/17 16:47 62 14 91 06/12/17 16:45 102/64 06/12/17 16:43 93 Room Air 06/12/17 16:42 90 Room Air 06/12/17 16:38 61 06/12/17 16:38 36.6 65 16 119/64 96 Room Air 06/12/17 16:32 61 06/12/17 16:31 102/70 Physical Exam GENERAL: Patient is awake, alert, and in no acute distress. Patient is resting comfortably and mildly anxious. EYES: The conjunctivae are clear. The pupils are round and reactive. EARS, NOSE, MOUTH AND THROAT: The nose is without any evidence of any deformity. Mucous membranes are moist tongue is midline NECK: The neck is nontender and supple. RESPIRATORY: Diminished and rales at both bases bilaterally. No evidences of tachypneic or dyspneic when talking. CARDIOVASCULAR: Regular rate and rhythm noted there no murmurs rubs or gallops normal S1 normal S2 GASTROINTESTINAL: The abdomen is soft. Bowel sounds are present in all quadrants. Abdomen is nontender MUSCULOSKELETAL/EXTREMITIES: There is no evidence of gross deformity full range of motion is noted in the hips and shoulders SKIN: Traced pedal edema bilaterally. Tenderness to hematoma on both inguinal areas consisted with recent cardiac catheterization. Pulses are symmetric. NEUROLOGIC: Patient is awake alert and oriented x3. Medical Decision & Procedures ER Provider Diagnostic Interpretation: X-ray results as stated below per interpretation by me and the radiologist. CHEST ONE VIEW PORTABLE CLINICAL HISTORY: CHEST PAIN dyspnea COMPARISON STUDY: 06/09/2017 FINDINGS: Mild cardia megaly. Lungs are clear. Diaphragms smooth. IMPRESSION: No acute process. Mild cardia megaly. The above report was generated using voice recognition software. It may contain grammatical, syntax or spelling errors. Electronically signed by: Vickey Arias M.D. 06/12/2017 5:38 PM Dictated Date/Time: 06/12/2017 5:37 PM Laboratory Results 06/12/17 17:44 Red Blood Count 2.88, Mean Corpuscular Volume 99.0, Mean Corpuscular Hemoglobin 33.3, Mean Corpuscular Hemoglobin Concent 33.7, Mean Platelet Volume 9.1, Neutrophils (%) (Auto) 77.9, Lymphocytes (%) (Auto) 9.8, Monocytes (%) (Auto) 10.7, Eosinophils (%) (Auto) 0.9, Basophils (%) (Auto) 0.3, Neutrophils # (Auto ) 5.82, Lymphocytes # (Auto) 0.73, Monocytes # (Auto) 0.80, Eosinophils # (Auto ) 0.07, Basophils # (Auto) 0.02 06/12/17 17:44 Test 06/12/17 17:44 White Blood Count 7.47 K/uL (4.8-10.8) Red Blood Count 2.88 M/uL (4.7-6.1) Hemoglobin 9.6 g/dL (14.0-18.0) Hematocrit 28.5 % (42-52) Mean Corpuscular Volume 99.0 fL (80-100) Mean Corpuscular Hemoglobin 33.3 pg (25-34) Mean Corpuscular Hemoglobin Concent 33.7 g/dl (32-36) Platelet Count 172 K/uL (130-400) Mean Platelet Volume 9.1 fL (7.4-10.4) Neutrophils (%) (Auto) 77.9 % Lymphocytes (%) (Auto) 9.8 % Monocytes (%) (Auto) 10.7 % Eosinophils (%) (Auto) 0.9 % Basophils (%) (Auto) 0.3 % Neutrophils # (Auto) 5.82 K/uL (1.4-6.5) Lymphocytes # (Auto) 0.73 K/uL (1.2-3.4) Monocytes # (Auto) 0.80 K/uL (0.11-0.59) Eosinophils # (Auto) 0.07 K/uL (0-0.5) Basophils # (Auto) 0.02 K/uL (0-0.2) RDW Standard Deviation 58.4 fL (36.4-46.3) RDW Coefficient of Variation 16.2 % (11.5-14.5) Immature Granulocyte % (Auto) 0.4 % Immature Granulocyte # (Auto) 0.03 K/uL (0.00-0.02) Prothrombin Time 12.2 SECONDS (9.0-12.0) Prothromb Time International Ratio 1.1 (0.9-1.1) Activated Partial Thromboplast Time 31.5 SECONDS (21.0-31.0) Partial Thromboplastin Ratio 1.2 Anion Gap 6.0 mmol/L (3-11) Est Creatinine Clear Calc Drug Dose 32.0 ml/min Estimated GFR () 31.7 Estimated GFR (Non- 27.3 BUN/Creatinine Ratio 7.2 (10-20) Calcium Level 8.9 mg/dl (8.5-10.1) Total Bilirubin 1.4 mg/dl (0.2-1) Direct Bilirubin 0.4 mg/dl (0-0.2) Aspartate Amino Transf (AST/SGOT) 18 U/L (15-37) Alanine Aminotransferase (ALT/SGPT) 17 U/L (12-78) Alkaline Phosphatase 60 U/L (45-117) Troponin I 0.016 ng/ml (0-0.045) Pro-B-Type Natriuretic Peptide 844 pg/ml (0-900) Total Protein 6.6 gm/dl (6.4-8.2) Albumin 3.2 gm/dl (3.4-5.0) Lipase 98 U/L (73-393) Laboratory results per my review. Medications Administered Medications (Trade) Dose Ordered Sig/Chata Route Start Time Stop Time Status Last Admin Dose Admin Sodium Chloride 1,000 ml @ 999 mls/hr Q1H1M STAT IV 06/12/17 18:57 06/12/17 19:57 DC 06/12/17 18:57 999 MLS/HR ECG Indication: chest pain Rate (beats per minute): 60 Rhythm: normal sinus Findings: no acute ischemic change, no ectopy, other (No ST abnormality) Comparison ECG Date: 06/09/17 Change: no significant change ED Course 1618: The patient was evaluated in room B06. A complete history and physical examination were performed. 7: Ordered Sodium Chloride 1000 ml @ 999 mls/hr IV. 3: I discussed the patients case with Dr. Crowell, [facility] Hospitalist. He understands the patients condition and agrees to accept the patient. The patient will be further evaluated. Medical Decision Differential diagnosis includes etiologies such as cardiac ischemia, aortic dissection, pulmonary embolism, pneumonia, pneumothorax, musculoskeletal, infections, pericarditis, myocarditis, esophageal rupture, gastrointestinal, as well as others were entertained. Nursing notes reviewed. The patient's previous electronic medical records reviewed. The patient is a 72-year-old male who presented to the emergency department for an evaluation of chest discomfort. The patient describes chest discomfort which she feels was consistent with his previous episodes of angina. The patient was having problems with upper abdominal pain and was recently scheduled for an upper GI workup. He was unable to have this workup until he had a heart clearance. He had a cardiac catheterization which revealed multiple cardiac areas of stenosis. He was sent to [facility] for further workup and for possible stenting. He was able to have one of the lesion stented but the other one was unable to be stented at that time. His recent workup was complicated by multiple areas of bleeding after the cardiac catheterization in both femoral vascular bundles. At this time he was found have a mild elevation in his creatinine compared to baseline as well as anemia. I feel the patient's condition is most likely consistent with angina especially given the anemia. The patient took his own nitroglycerin prior to arrival as well as aspirin. He at this time is pain-free and has an EKG which does not show any acute change from previous and his initial cardiac biomarkers are negative. I discussed the patient's laboratory and radiographic studies with him. I also discussed the limitations of the emergency department workup for chest pain with him. Given his risk factors as well as the presence of known coronary artery disease I discussed his case with the on-call [facility]. They have agreed to evaluate the patient in emergency department for further management and disposition. Medication Reconcilliation Current Medication List: was personally reviewed by me Blood Pressure Screening Patient's blood pressure: Normal blood pressure Consults Time Called: 1922 Consulting Physician: Dr. Crowell [facility] Returned Call: 1922 I discussed the patients case with Dr. Crowell [facility]. He understands the patients condition and agrees to accept the patient. The patient will be further evaluated. Impression Primary Impression: Chest pain Additional Impressions: Anemia Acute kidney failure Scribe Attestation The scribe's documentation has been prepared under my direction and personally reviewed by me in its entirety. I confirm that the note above accurately reflects all work, treatment, procedures, and medical decision making performed by me. Departure Information Dispostion Being Evaluated By Hospitalist Jacob Wills., MD (PCP) Problem Qualifiers
--- NOTE | 2017-06-12 17:39 | DIAGNOSTIC IMAGING REPORT ---
CHEST ONE VIEW PORTABLE CLINICAL HISTORY: CHEST PAIN dyspnea COMPARISON STUDY: 06/09/2017 FINDINGS: Mild cardia megaly. Lungs are clear. Diaphragms smooth. IMPRESSION: No acute process. Mild cardia megaly. The above report was generated using voice recognition software. It may contain grammatical, syntax or spelling errors. Electronically signed by: Vickey Arias M.D. 06/12/2017 5:38 PM Dictated Date/Time: 06/12/2017 5:37 PM
[2017-06-12 17:55] LABS: BASO % 0.3 %; BASO ABS # 0.02 K/uL (0-0.2); COMPLETE YES; EOS % 0.9 %; HEMATOCRIT 28.5 % (42-52); IG% 0.4 %; LYMPH % 9.8 %; LYMPH ABS # 0.73 K/uL (1.2-3.4); MEAN CORPUSCULAR HEMOGLOBIN 33.3 pg (25-34); MEAN CORPUSCULAR HGB CONC 33.7 g/dl (32-36); MEAN PLATELET VOLUME 9.1 fL (7.4-10.4); MONO % 10.7 %; NEUT % 77.9 %; PLATELET COUNT 172 K/uL (130-400); RED BLOOD COUNT 2.88 M/uL (4.7-6.1); WHITE BLOOD COUNT 7.47 K/uL (4.8-10.8)
[2017-06-12 18:08] LABS: INR 1.1 (0.9-1.1); PARTIAL THROMBOPLASTIN RATIO 1.2; PROTHROMBIN TIME (PATIENT) 12.2 SECONDS (9.0-12.0)
[2017-06-12 18:24] LABS: BUN/CREATININE RATIO 7.2 (10-20); CALCIUM 8.9 mg/dl (8.5-10.1); CREATININE 2.3 mg/dl (0.60-1.40); POTASSIUM 4.1 mmol/L (3.5-5.1)
[2017-06-12] MEDS ORDERED: SODIUM CHLORIDE 0.9% 1000ML 1,000 ML IV STA (18:57)
[2017-06-12] MEDS ORDERED: ARFORMOTEROL TART 15MCG/2ML VIAL INH ONE (21:05)
[2017-06-12] MEDS ORDERED: ONDANSETRON INJ 2 MG/ML 2 ML VIAL IV PRN (21:15)
[2017-06-12] MEDS ORDERED: NITROGLYCERIN 0.4 MG SL PER TAB CHARGE SL PRN (21:15)
[2017-06-12] MEDS ORDERED: LORAZEPAM 0.5 MG TAB PO PRN (21:15)
[2017-06-12] MEDS ORDERED: ACETAMINOPHEN 325 MG TAB PO PRN (21:15)
[2017-06-12 21:17] VITALS: BP 140/85; PULSE 60; TEMP 36.9; O2SAT 94; Ht 167.6 cm; Wt 95.2 kg
[2017-06-12] MEDS ORDERED: SODIUM CHLORIDE 0.9% 1000ML 1,000 ML IV SCH (21:30)
[2017-06-12] MEDS ORDERED: BUDESONIDE 0.5 MG/2 ML VIAL (PULMICORT) INH ONE (21:30)
[2017-06-12] MEDS ORDERED: PANTOprazole INJ 40 MG in SYRINGE 0 ML IV ONE (21:45)
[2017-06-12 22:25] LABS: URINE APPEARANCE CLEAR (CLEAR); URINE BILIRUBIN NEG (NEG); URINE COLOR DK YELLOW; URINE EPITHELIAL CELL AUTO >30 /lpf (0-5); URINE NITRITE NEG (NEG); URINE PH 6.5 (4.5-7.5); UROBILINOGEN NEG (NEG)
[2017-06-12 22:27] LABS: MANUAL MICROSCOPIC REQUIRED? NO; REVIEW REQ? YES
[2017-06-12 22:41] LABS: URINE PATH CASTS 1-5 WBC CASTS /lpf (0)
[2017-06-12 22:47] VITALS: PULSE 57; O2SAT 92
[2017-06-13] VITALS (16 sets, daily range): BP systolic 100–147; BP diastolic 67–83; PULSE 51–101; TEMP 36.4–37.1; O2SAT 93–99
--- NOTE | 2017-06-13 00:01 | History and Physical ---
History & Physical Date & Time of Service: Jun 12, 2017 at 23:59 Chief Complaint: Chest Pain Primary Care Physician: Jacob Jones MD History of Present Illness Source: patient, clinic records, hospital records 72 year old male with history of CAD s/p FAM to the RCA, COPD, HTN, HLD, CKD presenting with chest pain x few days. Patient follows with Dr. Casanova for Cardiology, and Dr. Jones for Primary Care. He has a history of CAD with RCA FAM placement last month and most recently was transferred to [facility] on June 01, 2017 for unstable angina. Patient underwent a cardiac cath but the LAD lesion was felt to be a candidate for stenting. Patient developed a large hematoma on the right groin extending to his scrotum and hip region. He was discharged and advised to continue Aspirin and Plavix with close Hg monitoring. Patient reports that since discharge from [facility], he has been having chest pain with minimal exertion relieved with nitro and rest. He also reports poor tolerance to PO intake, not able to keep food down except for soup, and has lost at least 10 lbs. He does have intermittent epigastric pain. 2 days ago, patient also noted chills but denies cough, headache, changes with urination or diarrhea. Today, patient was preparing food in the kitchen but suddenly developed central chest pain, pressure, reminiscent of his usual angina. He took a total of 3 nitro and 4 baby Aspirins before the pain subsided. Apparently, based on ER records, his BP was low at systolic 60s at the site and was given IV fluids. He was then brought to the ED. Patient arrived at the ER with bp of 102/64, HR 61. EKG did not show signs of acute ischemia. Troponin negative. On exam, patient seen resting in bed, not in distress. Denies having any active chest pain, dyspnea, abdominal pain,nausea. No other symptoms. Past Medical/Surgical History Medical Problems: (1) Benign hypertension Status: Chronic (2) Chr Airway Obstruct Nec Permanent Comment: O2 2.5 L at [facility] Status: Chronic (3) Chronic kidney disease stage 3 Status: Chronic (4) Coronary artery disease Status: Chronic (5) Creatinine elevation Status: Resolved (6) Diverticulosis Colon (W/O Ment Of Hemorrhage) Status: Chronic (7) Gastroesophageal reflux disease Status: Chronic (8) Gracie filter in place Status: Chronic (9) Hypertension Nos Status: Chronic (10) Ileus, postoperative Status: Resolved (11) Pneumonia, Organism Nos Status: Resolved (12) Recurrent genital herpes simplex Status: Chronic (13) Total replacement of hip Status: Resolved Surgical Problems: (1) History of lumbar surgery Status: Resolved (2) History of right shoulder replacement Status: Resolved (3) History of temporomandibular joint syndrome Status: Resolved (4) Hx of transurethral resection of prostate Status: Resolved Family History Cancer Heart disease Kidney disease Social History Smoking Status: Former Smoker Marital Status: Occupational Status: retired Immunizations History of Influenza Vaccine: Yes Influenza Vaccine Date: Jun 28, 2011 History of Tetanus Vaccine?: Unknown History of Pneumococcal: Yes Pneumococcal Date: Sep 10, 2010 History of Hepatitis B Vaccine: Yes Allergies Coded Allergies: Benzocaine (Verified Allergy, Severe, SLOUGHING OF SKIN, 06/12/17) Clindamycin (Verified Allergy, Intermediate, RASH, 06/12/17) Clobetasol (Verified Allergy, Unknown, ITCHING, 06/12/17) Doxycycline (Verified Allergy, Unknown, RASH, 06/12/17) Penicillins (Verified Allergy, Unknown, HIVES, 06/12/17) Phenylethylamine (Verified Allergy, Unknown, ITCHING, 06/12/17) Tea Tree Oil (Verified Allergy, Unknown, ITCHING, 06/12/17) Home Medications Scheduled Allopurinol (Allopurinol), 100 MG PO DAILY Arformoterol Tartrate (Brovana), 15 MCG NEB BID Aspirin (Aspir-81), 81 MG PO QAM Atorvastatin (Lipitor), 80 MG PO QPM Budesonide (Inhalation) (Pulmicort Respules 0.5MG/2ML), 2 ML NEB BID Cholecalciferol (Vitamin D3), 2,000 INTER.UNIT PO QPM Clopidogrel Bisulfate (Clopidogrel), 75 MG PO DAILY Cyanocobalamin (Cyanocobalamin), 1,000 MCG IM MONTHLY Famotidine (Pepcid), 20 MG PO DAILY Ferrous Sulfate (Ferrous Sulfate), 325 MG PO QPM Home O2 Therapy (Oxygen), 3 LITERS NA HS Isosorbide Mononitrate Ext Rel (Imdur Ext Rel), 30 MG PO DAILY Metoprolol Tartrate (Lopressor), 25 MG PO BID Multivitamin (Multivitamin), 1 TAB PO DAILY Nitroglycerin (Nitrostat), 0.4 MG UT PRN Omeprazole (Prilosec), 20 MG PO BID Pantoprazole Sodium (Protonix), 20 MG PO DAILY Valacyclovir Hcl (Valtrex), 1 GM PO DAILY Scheduled PRN Acetaminophen W/ Codeine (Tylenol W/Codeine #3), 1 TAB PO Q6H PRN for Pain Albuterol Sulf (Proventil 0.083% 2.5MG/3ML), 2.5 MG NEB HS PRN for SOB/Wheezing Azithromycin (Azithromycin), 1 DOSE PO UD PRN for COPD RESCUE Eucerin (Eucerin), 1 APPLN TOP DAILY PRN for DRY SKIN Hydrocortisone Acetate (Rectal (Anusol-Hc), 25 MG TX BID PRN for Hemorrhoids Ipratropium-Albuterol (Combivent Respimat), 1 PUFF INH QID PRN for Cough/ Wheezing Lorazepam (Lorazepam), 0.5 MG PO TID PRN for Anxiety Ondansetron Hcl (Zofran), 4 MG PO TID PRN for Nausea Prednisone (Deltasone), 20 MG PO UD PRN for COPD/Asthma Rescue Kit Sennosides-Docusate Sodium (Stool Softener Plus Laxat), 1 TAB PO DAILY PRN for Constipation Triamcinolone Acet (Aristocort 0.1%), 1 APPLN TOP UD PRN for Itching Review of Systems Constitutional- (+) as noted above Eyes- no acute visual changes ENT- no sinus drainage; no pharyngitis Pulmonary- no cough, no wheezing, no shortness of breath Cardiac- (+) as noted above GI- (+) as noted above - no dysuria, no hematuria Musculoskeletal- no arthralgias, no myalgias Derm- no rashes, no new skin lesions, no changing skin lesions Hematologic- no unusual bruising, no unusual bleeding Lymphatics- no adenopathy Endocrine- no polyuria or polydipsia; no heat or cold intolerance Neuro- no headaches, no focal neurologic symptoms Psych- no anxiety, no depression Physical Exam Vital Signs Date Time Temp Pulse Resp B/P (MAP) Pulse Ox O2 Delivery O2 Flow Rate FiO2 06/12/17 22:47 57 18 92 Room Air 06/12/17 21:17 36.9 60 18 140/85 94 Room Air 06/12/17 20:44 36.6 58 18 135/74 92 06/12/17 20:35 58 18 06/12/17 20:31 135/74 06/12/17 20:05 61 14 06/12/17 20:00 130/93 06/12/17 19:48 130/67 06/12/17 19:47 62 17 06/12/17 19:30 164/92 06/12/17 19:17 55 15 06/12/17 19:01 132/92 06/12/17 18:47 57 15 06/12/17 18:31 99/73 06/12/17 18:17 63 18 92 06/12/17 18:15 122/70 06/12/17 18:00 110/67 06/12/17 17:47 68 16 93 06/12/17 17:30 108/72 06/12/17 17:30 58 18 108/72 92 Room Air 06/12/17 17:17 57 15 91 06/12/17 17:15 92/66 06/12/17 17:00 95/67 06/12/17 16:47 62 14 91 06/12/17 16:45 102/64 06/12/17 16:43 93 Room Air 06/12/17 16:42 90 Room Air 06/12/17 16:38 61 06/12/17 16:38 36.6 65 16 119/64 96 Room Air 06/12/17 16:32 61 06/12/17 16:31 102/70 General Appearance: WD/WN, no apparent distress Head: normocephalic, atraumatic Eyes: normal inspection, EOMI, sclerae normal ENT: normal ENT inspection, hearing grossly normal, pharynx normal Neck: supple, no adenopathy, thyroid normal, no JVD, trachea midline Respiratory/Chest: chest non-tender, lungs clear, normal breath sounds, no respiratory distress, no accessory muscle use Cardiovascular: regular rate, rhythm, no edema, no JVD, no murmur Abdomen/GI: normal bowel sounds, non tender, soft, + pertinent finding ((+) area of hematoma on the right groin, scrotum, extending to the waist, left hip region, non tender/no warmth) Back: no CVA tenderness, + pertinent finding (hematoma on the left upper hip/ flank region) Extremities/Musculoskelatal: normal inspection, no calf tenderness, no pedal edema, normal range of motion Neurologic/Psych: piping blocker II-XII nml as tested, no motor/sensory deficits, alert, normal mood/affect, oriented x 3 Skin: normal color, warm/dry, no rash Lymphatic: no adenopathy Diagnostics Laboratory Results Results Past 24 Hours Test 06/12/17 17:44 06/12/17 20:25 06/12/17 23:19 Range/Units White Blood Count 7.47 4.8-10.8 K/uL Red Blood Count 2.88 4.7-6.1 M/uL Hemoglobin 9.6 14.0-18.0 g/dL Hematocrit 28.5 42-52 % Mean Corpuscular Volume 99.0 80-100 fL Mean Corpuscular Hemoglobin 33.3 25-34 pg Mean Corpuscular Hemoglobin Concent 33.7 32-36 g/dl Platelet Count 172 130-400 K/uL Mean Platelet Volume 9.1 7.4-10.4 fL Neutrophils (%) (Auto) 77.9 % Lymphocytes (%) (Auto) 9.8 % Monocytes (%) (Auto) 10.7 % Eosinophils (%) (Auto) 0.9 % Basophils (%) (Auto) 0.3 % Neutrophils # (Auto) 5.82 1.4-6.5 K/uL Lymphocytes # (Auto) 0.73 1.2-3.4 K/uL Monocytes # (Auto) 0.80 0.11-0.59 K/uL Eosinophils # (Auto) 0.07 0-0.5 K/uL Basophils # (Auto) 0.02 0-0.2 K/uL RDW Standard Deviation 58.4 36.4-46.3 fL RDW Coefficient of Variation 16.2 11.5-14.5 % Immature Granulocyte % (Auto) 0.4 % Immature Granulocyte # (Auto) 0.03 0.00-0.02 K/uL Prothrombin Time 12.2 9.0-12.0 SECONDS Prothromb Time International Ratio 1.1 0.9-1.1 Activated Partial Thromboplast Time 31.5 21.0-31.0 SECONDS Partial Thromboplastin Ratio 1.2 Sodium Level 140 136-145 mmol/L Potassium Level 4.1 3.5-5.1 mmol/L Chloride Level 109 98-107 mmol/L Carbon Dioxide Level 25 21-32 mmol/L Anion Gap 6.0 3-11 mmol/L Blood Urea Nitrogen 17 7-18 mg/dl Creatinine 2.30 0.60-1.40 mg/dl Est Creatinine Clear Calc Drug Dose 32.0 ml/min Estimated GFR () 31.7 Estimated GFR (Non- 27.3 BUN/Creatinine Ratio 7.2 10-20 Random Glucose 93 70-99 mg/dl Calcium Level 8.9 8.5-10.1 mg/dl Total Bilirubin 1.4 0.2-1 mg/dl Direct Bilirubin 0.4 0-0.2 mg/dl Aspartate Amino Transf (AST/SGOT) 18 15-37 U/L Alanine Aminotransferase (ALT/SGPT) 17 12-78 U/L Alkaline Phosphatase 60 45-117 U/L Troponin I 0.016 0-0.045 ng/ml Pro-B-Type Natriuretic Peptide 844 0-900 pg/ml Total Protein 6.6 6.4-8.2 gm/dl Albumin 3.2 3.4-5.0 gm/dl Lipase 98 73-393 U/L Urine Color DK YELLOW Urine Appearance CLEAR CLEAR Urine pH 6.5 4.5-7.5 Urine Specific [place] 1.020 1.000-1.030 Urine Protein 1+ NEG Urine Glucose (UA) TRACE NEG Urine Ketones NEG NEG Urine Occult Blood NEG NEG Urine Nitrite NEG NEG Urine Bilirubin NEG NEG Urine Urobilinogen NEG NEG Urine Leukocyte Esterase NEG NEG Urine WBC (Auto) 5-10 0-5 /hpf Urine RBC (Auto) 0-4 0-4 /hpf Urine Hyaline Casts (Auto) >30 0-5 /lpf Urine Epithelial Cells (Auto) >30 0-5 /lpf Urine Bacteria (Auto) NEG NEG Urine Renal Epithelial Cells 0-5 0-5 /lpf Urine Pathogenic Casts 1-5 WBC CASTS 0 /lpf Creatine Kinase MB Ratio 0-3.0 Microbiology Results 06/12/17 Blood Culture, Received Pending 06/12/17 Blood Culture, Received Pending Diagnostic Radiology CHEST ONE VIEW PORTABLE CLINICAL HISTORY: CHEST PAIN dyspnea COMPARISON STUDY: 06/09/2017 FINDINGS: Mild cardia megaly. Lungs are clear. Diaphragms smooth. IMPRESSION: No acute process. Mild cardia megaly. EKG HR 60, sinus rhythm, no signs of acute ischemia or infarct Impression Assessment and Plan 72 year old male with history of CAD s/p FAM to the RCA, COPD, HTN, HLD, CKD presenting with chest pain x few days. CHEST PAIN, POSSIBLE ANGINA, DEMAND ISCHEMIA SECONDARY TO ANEMIA HISTORY OF CAD, S/P RCA DRUG ELUTING STENT, LAD STENOSIS - discharged from [facility] early this month, s/p Cardiac Cath, no stent placed on the LAD, (+) inguinal hematoma - follow cardiac markers echo - Hg 12 during last admission--> 9.6 likely from inguinal hematoma from last Cardiac Cath 1 unit pRBC transfusion ordered (PATIENT POSITIVE FOR ANTIBODIES, BLOOD BANK INFORMED, AND GIVEN COPY OF PATIENT'S MEDICAL ALERT CARD LISTING THE ANTIBODIES; THEY ARE OBTAINING BLOOD VIA [facility], FROM [place]) then repeat H&H may need additional pRBC if still symptomatic or Hg < 10 ALWAYS INFORM BLOOD BANK OF PATIENT'S (+) ANTIBODIES WHEN ORDERING BLOOD PRODUCTS - Cardiology consulted EPISODE OF HYPOTENSION - apparently was noted by EMS - BP now stable - monitor PERSISTENT NAUSEA/VOMITING, POOR ORAL INTAKE HISTORY OF DALE'S ESOPHAGUS, LARGE HIATAL HERNIA - clear liquid diet Protonix IV - GI consulted CHILLS - afebrile - no leukocytosis - no clear focus of infection ff up cultures - monitor INGUINAL HEMATOMA - from Cardiac Cath 06/02/17 - improving as per patient - on Aspirin, Plavix, monitor ALEXANDRE - on 3 L nasal cannula at HS COPD - stable continue usual bronchodilators CKD 3 - last crea 2.1 - monitor DVT PROPH - SCDs in light of hematoma FULL CODE PER PATIENT DISPOSITION lives at home with family ff up with PCP Dr. Jones Manager Health Dr. Casanova Advanced Directives Existing Living Will: No Existing Power of Mechanic And Welder: No VTE Prophylaxis VTE Risk Assessment Done? Y/N: Yes Risk Level: Moderate Given or contraindicated: SCD's
[2017-06-13 00:08] LABS: CKMB/CK RATIO 1.3 (0-3.0)
[2017-06-13 01:57] LABS: HEMATOCRIT 26.9 % (42-52)
[2017-06-13 06:28] LABS: BLOOD UREA NITROGEN 15 mg/dl (7-18); BUN/CREATININE RATIO 7.3 (10-20); CALCIUM 8.8 mg/dl (8.5-10.1); CARBON DIOXIDE 25 mmol/L (21-32); CHLORIDE 110 mmol/L (98-107); GLUCOSE 87 mg/dl (70-99); POTASSIUM 3.8 mmol/L (3.5-5.1); SODIUM 141 mmol/L (136-145)
--- NOTE | 2017-06-13 06:33 | Clinical Documentation Query ---
NIA Reyes : CLINICAL DOCUMENTATION QUERIES QUERY 1 OF 2 Patient is a 72 year old male admitted for evaluation and treatment of chest pain with minimal exertion, relieved with nitro and rest. Documentation includes "CHEST PAIN, POSSIBLE ANGINA, DEMAND ISCHEMIA SECONDARY TO ANEMIA". The anemia was deemed likely due to inguinal hematoma sustained during cardiac catheterization recently at outside facility. Hemoglobin noted to be 12-13 g/dl on prior admission. Repeat value of 9.2 g/dl this a.m. (06/13/17). Patient to be transfused one unit of PRBC's and monitored with serial hematology. In your clinical opinion is this patient being managed for: ( ) Acute blood loss anemia ( ) Not Agree ( ) Other explanation of clinical findings (Please Explain) ( ) Unable to determine (Please Define) ( ) Need to Discuss The medical record reflects the following clinical findings, treatment, and risk factors. Clinical Indicators: As above Treatment:Patient to be transfused one unit of PRBC's and monitored with serial hematology Risk Factors: Inguinal hematoma sustained during recent cardiac catheterization. QUERY 2 OF 2 Documentation includes CKD stage 3. Admission BUN, creatinine, and estimated GFR were 17 mg/dl, 2.30 mg/dl, and 27 ml/min. Estimated GFR range of 15-30 ml/min consistent with CKD stage 4. Historical documentation consists of a diagnosis of CKD stage 4. Please clarify as clinically appropriate. Thank you. In your clinical opinion is this patient being managed for: ( ) Chronic kidney disease, stage 4 ( ) HERNANDEZ on CKD stage 3 ( ) Not Agree ( ) Other explanation of clinical findings (Please Explain) ( ) Unable to determine (Please Define) ( ) Need to Discuss The medical record reflects the following clinical findings, treatment, and risk factors. Clinical Indicators: As above Treatment: Serial chemistries Risk Factors: Age, recent contrast for cardiac catheterization, hypertension Please clarify and document your clinical opinion in the progress notes and discharge summary. Terms such as "probable", "suspected", "likely", "questionable", "possible", or "still to be ruled out" are acceptable. IF IN AGREEMENT, YOU MUST DOCUMENT ABOVE DIAGNOSTIC STATEMENT IN DAILY PROGRESS NOTES AND DISCHARGE SUMMARY. This document is not part of the patient's record. Thank You, Eugene Hickman, EBER [phone]
[2017-06-13 06:36] LABS: CKMB/CK RATIO 1.5 (0-3.0)
[2017-06-13] MEDS: BUDESONIDE 0.5 MG/2 ML VIAL (PULMICORT) INH SCH ×2 (07:08→19:06)
[2017-06-13] MEDS: ARFORMOTEROL TART 15MCG/2ML VIAL INH SCH ×2 (07:08→19:06)
[2017-06-13] MEDS: ALLOPURINOL 100 MG TAB PO SCH (08:23)
[2017-06-13] MEDS: METOPROLOL TARTRATE 25 MG TAB PO SCH ×2 (08:23→20:46)
[2017-06-13] MEDS: ASPIRIN 81 MG ECTAB PO SCH (08:24)
[2017-06-13] MEDS: FAMOTIDINE 20 MG TAB PO SCH (08:24)
[2017-06-13] MEDS: CLOPIDOGREL BISULFATE 75 MG TAB PO SCH (08:24)
[2017-06-13] MEDS ORDERED: ISOSORBIDE MONONITRATE 30 MG TABCR PO SCH (09:00)
--- NOTE | 2017-06-13 09:56 | Gastrointestinal Consultation ---
Gastrointestinal Consultation Date of Consultation: Jun 13, 2017 Attending Physician: Socrates Consulting Physician: Carlos Reason for Consultation: abdominal pain, nausea History of Present Illness Patient is a 72 year old male w/ history of Sepulveda's esophagus, HH, COPD, HTN, HLD, CKD, CAD s/p FAM to the RCA, presenting with acute worsening of chest pain - GI is consulted for evaluation of nausea and upper abdominal pain. Of note he tells me he was scheduled for an outpatient EGD but at time of anesthesia evaluation, it was decided his pain was cardiac in nature and was suggested he follow up with his body man. Pt was seeb by cardiology 2 days later, sent to ED and had extensive cardiac workup and was recently transferred to [facility] 06/01/17 due for unstable angina - he had a cardiac cath, however, the LAD lesion was not able to be stented. Pt tells me there were two different attempting resulting in a large hematoma of the left groin, hip and scrotum. He has followed up with his body man since discharge. Pt tells me since discharge he has had intermittent chest pain with radiation to his jaw, resolved with nitro and intermittent upper abdominal pain and pressure. He tells me his abdominal pain is sporadic. Explained as a pressure with gas bubble that can feel like a spasm at time. Resolves with PO intake of fluid. Associated with nausea and burping. No other upper GI symptoms. + unintentional weight loss of 15 lbs per patient. He had a few dark stools a few weeks ago. No BMs are daily, no lower abdominal pain black/bloody stools. Colonoscopy 09/08/16: Two 4 to 5 mm polyps in the sigmoid colon. Resected and retrieved. Diverticulosis in the sigmoid colon. Non-bleeding internal hemorrhoids. EGD 05/05/15: Large hiatus hernia. Biopsied.b Normal stomach. Biopsied. Normal examined duodenum. Chest XR 06/12/17: Mild cardia megaly. Lungs are clear. Diaphragms smooth. Past Medical/Surgical History Medical Problems: (1) Acute kidney failure Status: Acute (2) Anemia Status: Acute (3) Cellulitis of foot, right Status: Acute (4) Cellulitis of right foot Status: Acute (5) Cellulitis of right foot Status: Acute (6) Chest pain Status: Acute (7) Chronic kidney disease Status: Acute (8) Failure of outpatient treatment Status: Acute (9) Gastritis Status: Acute (10) Melena Status: Acute (11) NSTEMI (non-ST elevated myocardial infarction) Status: Acute (12) Precordial chest pain Status: Acute Past Medical History: Sepulveda's, HH, COPD, HTN, CKD, CKD-3, GERD, diverticulosis, history of colonic polyps, dayami filter Past Surgical History: EGD, colonoscopy, cardiac catheterization, History of lumbar surgery, History of right shoulder replacement, Hx of transurethral resection of prostate Family History Cancer Heart disease Kidney disease Social History Smoking Status: Former Smoker Alcohol Use: none Marital Status: Housing Status: lives with significant other Occupation Status: retired Allergies Coded Allergies: Benzocaine (Verified Allergy, Severe, SLOUGHING OF SKIN, 06/12/17) Clindamycin (Verified Allergy, Intermediate, RASH, 06/12/17) Clobetasol (Verified Allergy, Unknown, ITCHING, 06/12/17) Doxycycline (Verified Allergy, Unknown, RASH, 06/12/17) Penicillins (Verified Allergy, Unknown, HIVES, 06/12/17) Phenylethylamine (Verified Allergy, Unknown, ITCHING, 06/12/17) Tea Tree Oil (Verified Allergy, Unknown, ITCHING, 06/12/17) Current Medications Home Meds and Scripts Medications Dose Route/Sig Max Daily Dose Days Date Category Dose Instructions Protonix (Pantoprazole Sodium) 20 Mg Tab 20 Mg PO DAILY 06/12/17 Reported Zofran (Ondansetron HCl) 4 Mg Tab 4 Mg PO TID PRN 06/07/17 Rx Pepcid (Famotidine) 20 Mg Tab 20 Mg PO DAILY 06/07/17 Rx Azithromycin 1 Pkt Tab 1 Dose PO UD PRN 06/07/17 Reported Tylenol W/Codeine #3 (Acetaminophen W/ Codeine) 1 Tab Tab 1 Tab PO Q6H PRN 06/07/17 Reported Lipitor (Atorvastatin Calcium) 80 Mg Tab 80 Mg PO QPM 06/07/17 Reported Clopidogrel (Clopidogrel Bisulfate) 75 Mg Tab 75 Mg PO DAILY 05/31/17 Reported Nitrostat (Nitroglycerin) 0.4 Mg Tab 0.4 Mg UT PRN 05/31/17 Reported Lopressor (Metoprolol Tartrate) 25 Mg Tab 25 Mg PO BID 05/31/17 Reported Allopurinol 100 Mg Tab 100 Mg PO DAILY 05/31/17 Reported 100MG DAILY FOR 1 WEEK, THEN 200MG DAILY FOR 1 WEEK, THEN 300MG DAILY. STARTED 05/25/17 Imdur Ext Rel (Isosorbide Mononitrate) 30 Mg Tabcr 30 Mg PO DAILY 05/31/17 Reported Eucerin (Multi-Ingredient Ointment) Cre 1 Appln TOP DAILY PRN 05/18/17 Reported Stool Softener Plus Laxat (Sennosides-Docusate Sodium) 1 Tab Tab 1 Tab PO DAILY PRN 05/18/17 Reported Anusol-Hc (Hydrocortisone Acetate (Rectal) 25 Mg Sup 25 Mg ND BID PRN 05/18/17 Reported Multivitamin (Multivitamins) Tab 1 Tab PO DAILY 05/18/17 Reported Valtrex (Valacyclovir Hcl) 1 Gm Tab 1 Gm PO DAILY 05/18/17 Reported Pulmicort Respules 0.5MG/2ML (Budesonide (Inhalation)) 0.5 Mg/2 Ml Yareli 2 Ml NEB BID 03/04/17 Reported Prilosec (Omeprazole) 20 Mg Cap 20 Mg PO BID 03/04/17 Reported Lorazepam 0.5 Mg Tab 0.5 Mg PO TID PRN 03/04/17 Reported Deltasone (Prednisone) 20 Mg Tab 20 Mg PO UD PRN 03/04/17 Reported TAKE 2 TABLETS (40 MG) DAILY FOR 5 DAYS Vitamin D3 (Cholecalciferol) 2,000 Unit Cap 2,000 Inter.unit PO QPM 03/03/17 Reported Proventil 0.083% 2.5MG/3ML (Albuterol Sulf) 2.5 Mg/3 Ml Nebu 2.5 Mg NEB HS PRN 03/03/17 Reported Cyanocobalamin 1,000 Mcg/Ml Inj 1,000 Mcg IM MONTHLY 03/03/17 Reported Ferrous Sulfate 325 Mg Tab 325 Mg PO QPM 03/02/17 Reported Oxygen Gas 3 Liters NA HS 08/29/16 Reported Aristocort 0.1% (Triamcinolone Acet) 90 Appln/30 Gm Cr 1 Appln TOP UD PRN 07/31/14 Reported APPLY TWICE DAILY IF NEEDED FOR ITCHY LEGS Brovana (Arformoterol Tartrate) 15 Mcg/2 Ml Neb 15 Mcg NEB BID 8/18/14 Reported MIX WITH BEDESONIDE Aspir-81 (Aspirin) 81 Mg Tab 81 Mg PO QAM 05/19/14 Reported Combivent Respimat (Ipratropium-Albuterol) 1 Aer Aer 1 Puff INH QID PRN 05/19/14 Reported Review of Systems Constitutional: + weight loss, No fever, No chills Respiratory: No cough, No shortness of breath Cardiac: + chest pain, No edema Abdomen: + pain, + nausea, No vomiting, No diarrhea, No constipation, No GI bleeding, No dysphagia, No odynophagia Physical Exam Date Time Temp Pulse Resp B/P (MAP) Pulse Ox O2 Delivery O2 Flow Rate FiO2 06/13/17 07:08 58 18 98 Nasal Cannula 3.0 06/13/17 06:45 36.4 55 16 144/83 98 3.0 06/13/17 06:30 54 18 142/79 95 3.0 06/13/17 06:15 36.6 55 18 146/82 97 3.0 06/13/17 06:00 36.5 56 16 138/82 97 3.0 06/13/17 05:42 36.8 56 18 129/74 97 3.0 06/13/17 04:00 Nasal Cannula 3.0 06/13/17 03:40 37.1 57 15 147/79 (101) 97 Nasal Cannula 3.0 06/13/17 02:04 101 20 103/69 (80) 94 Nasal Cannula 2.0 06/13/17 01:00 94 18 104/69 (81) 99 06/13/17 00:04 36.8 59 17 146/82 (103) 93 Nasal Cannula 3.0 06/13/17 00:00 97 100/67 (78) 06/13/17 00:00 Nasal Cannula 3.0 06/12/17 22:47 57 18 92 Room Air 06/12/17 21:17 36.9 60 18 140/85 94 Room Air 06/12/17 20:44 36.6 58 18 135/74 92 06/12/17 20:35 58 18 06/12/17 20:31 135/74 06/12/17 20:05 61 14 06/12/17 20:00 130/93 06/12/17 19:48 130/67 06/12/17 19:47 62 17 06/12/17 19:30 164/92 06/12/17 19:17 55 15 06/12/17 19:01 132/92 06/12/17 18:47 57 15 06/12/17 18:31 99/73 06/12/17 18:17 63 18 92 06/12/17 18:15 122/70 06/12/17 18:00 110/67 06/12/17 17:47 68 16 93 06/12/17 17:30 108/72 06/12/17 17:30 58 18 108/72 92 Room Air 06/12/17 17:17 57 15 91 06/12/17 17:15 92/66 06/12/17 17:00 95/67 06/12/17 16:47 62 14 91 06/12/17 16:45 102/64 06/12/17 16:43 93 Room Air 06/12/17 16:42 90 Room Air 06/12/17 16:38 61 06/12/17 16:38 36.6 65 16 119/64 96 Room Air 06/12/17 16:32 61 06/12/17 16:31 102/70 General Appearance: no apparent distress (pt is upright in bed) Eyes: PERRL ENT: hearing grossly normal Neck: supple Respiratory/Chest: lungs clear, normal breath sounds Cardiovascular: regular rate, rhythm Abdomen: normal bowel sounds, non tender, soft, no organomegaly, no pulsatile mass Neurologic/Psych: alert, normal mood/affect, oriented x 3 Skin: normal color, warm/dry, no rash, + pertinent finding (evidence of large hematoma left groun and left flank) Laboratory Results Last 24 Hours Test 06/12/17 17:44 06/12/17 20:25 06/12/17 23:19 06/13/17 01:46 White Blood Count 7.47 K/uL Red Blood Count 2.88 M/uL Hemoglobin 9.6 g/dL 9.2 g/dL Hematocrit 28.5 % 26.9 % Mean Corpuscular Volume 99.0 fL Mean Corpuscular Hemoglobin 33.3 pg Mean Corpuscular Hemoglobin Concent 33.7 g/dl Platelet Count 172 K/uL Mean Platelet Volume 9.1 fL Neutrophils (%) (Auto) 77.9 % Lymphocytes (%) (Auto) 9.8 % Monocytes (%) (Auto) 10.7 % Eosinophils (%) (Auto) 0.9 % Basophils (%) (Auto) 0.3 % Neutrophils # (Auto) 5.82 K/uL Lymphocytes # (Auto) 0.73 K/uL Monocytes # (Auto) 0.80 K/uL Eosinophils # (Auto) 0.07 K/uL Basophils # (Auto) 0.02 K/uL RDW Standard Deviation 58.4 fL RDW Coefficient of Variation 16.2 % Immature Granulocyte % (Auto) 0.4 % Immature Granulocyte # (Auto) 0.03 K/uL Prothrombin Time 12.2 SECONDS Prothromb Time International Ratio 1.1 Activated Partial Thromboplast Time 31.5 SECONDS Partial Thromboplastin Ratio 1.2 Sodium Level 140 mmol/L Potassium Level 4.1 mmol/L Chloride Level 109 mmol/L Carbon Dioxide Level 25 mmol/L Anion Gap 6.0 mmol/L Blood Urea Nitrogen 17 mg/dl Creatinine 2.30 mg/dl Est Creatinine Clear Calc Drug Dose 32.0 ml/min Estimated GFR () 31.7 Estimated GFR (Non- 27.3 BUN/Creatinine Ratio 7.2 Random Glucose 93 mg/dl Calcium Level 8.9 mg/dl Total Bilirubin 1.4 mg/dl Direct Bilirubin 0.4 mg/dl Aspartate Amino Transf (AST/SGOT) 18 U/L Alanine Aminotransferase (ALT/SGPT) 17 U/L Alkaline Phosphatase 60 U/L Troponin I 0.016 ng/ml < 0.015 ng/ml Pro-B-Type Natriuretic Peptide 844 pg/ml Total Protein 6.6 gm/dl Albumin 3.2 gm/dl Lipase 98 U/L Urine Color DK YELLOW Urine Appearance CLEAR Urine pH 6.5 Urine Specific [place] 1.020 Urine Protein 1+ Urine Glucose (UA) TRACE Urine Ketones NEG Urine Occult Blood NEG Urine Nitrite NEG Urine Bilirubin NEG Urine Urobilinogen NEG Urine Leukocyte Esterase NEG Urine WBC (Auto) 5-10 /hpf Urine RBC (Auto) 0-4 /hpf Urine Hyaline Casts (Auto) >30 /lpf Urine Epithelial Cells (Auto) >30 /lpf Urine Bacteria (Auto) NEG Urine Renal Epithelial Cells 0-5 /lpf Urine Pathogenic Casts 1-5 WBC CASTS /lpf Total Creatine Kinase 165 U/L Creatine Kinase MB 2.1 ng/ml Creatine Kinase MB Ratio 1.3 Test 06/13/17 05:58 9/12/17 09:24 Sodium Level 141 mmol/L Potassium Level 3.8 mmol/L Chloride Level 110 mmol/L Carbon Dioxide Level 25 mmol/L Anion Gap 6.0 mmol/L Blood Urea Nitrogen 15 mg/dl Creatinine 2.10 mg/dl Est Creatinine Clear Calc Drug Dose 34.4 ml/min Estimated GFR () 35.4 Estimated GFR (Non- 30.5 BUN/Creatinine Ratio 7.3 Random Glucose 87 mg/dl Calcium Level 8.8 mg/dl Total Creatine Kinase 137 U/L Creatine Kinase MB 2.1 ng/ml Creatine Kinase MB Ratio 1.5 Troponin I < 0.015 ng/ml Hepatitis C Antibody Screen NEG Impression Patient is a 72 year old male with hx of unstable angina transferred to [facility] in 06/01/17 S/P cardiac catheterization with an un-stentable LAD lesion who was told to follow up with cardiology locally and use ASA and plavix daily who was admitted to [facility] with chest pain - chest XR was negative, troponin negative, ECHO pending and cardiology consult pending that GI is following for weight loss, nausea and chest pain. No ETOH, daily ASA no other NSAIDs - Etiology of chest pain unclear, perhaps secondary to large HH. He is extremely high risk for endoscopic evaluation and would need cardiac clearance prior to endoscopic evaluation. Plan - Unintentional weight loss - EGD/Colonoscopy - CT ABD/Pelvis IV & PO contrast - Abdominal pain - PPI once daily - Simethicone PRN - EGD - Stool H.Pylori - Antiemetics PRN GI to follow. Please call with questions or concerns. I saw and evaluated the patient. We are consult at for evaluation of 15 pounds weight loss the last 6 months. The patient did have a colonoscopy with about 2 years ago. His recent history is notable for unstable angina for which she underwent a cardiac catheterization at [facility] [place]. At this time we are told that he is not stable for endoscopic evaluations. He denies having nausea vomiting but does note epigastric discomfort. He denies having difficulty or pain with swallowing. Physical examination No obvious distress No scleral icterus Impression: Patient with mild weight loss over the last 3-6 months. He did have a recent colonoscopy suggest this is not the likely cause of his symptoms. I would suggest an upper endoscopy once the patient is more clinically stable. In the meantime could obtain an upper GI series to evaluate for obvious pathology such as peptic ulcer disease or mass lesions. Recommendations Upper GI series, will defer to internal medicine to order Please call if patient cleared by cardiology otherwise patient should follow-up with our office in 3 months (normally sees Dr. Lopez)
[2017-06-13 10:15] LABS: BASO % 0.3 %; BASO ABS # 0.02 K/uL (0-0.2); COMPLETE YES; EOS % 2.5 %; HEMATOCRIT 30.9 % (42-52); IG% 0.1 %; LYMPH % 8.8 %; LYMPH ABS # 0.63 K/uL (1.2-3.4); MEAN CELL VOLUME 98.4 fL (80-100); MEAN CORPUSCULAR HEMOGLOBIN 33.8 pg (25-34); MEAN CORPUSCULAR HGB CONC 34.3 g/dl (32-36); MEAN PLATELET VOLUME 9.3 fL (7.4-10.4); MONO % 10.2 %; NEUT % 78.1 %; PLATELET COUNT 173 K/uL (130-400); RED BLOOD COUNT 3.14 M/uL (4.7-6.1); WHITE BLOOD COUNT 7.15 K/uL (4.8-10.8)
[2017-06-13] MEDS: PANTOprazole INJ 40 MG in SYRINGE 0 ML IV SCH (10:16)
--- NOTE | 2017-06-13 10:52 | Progress Note ---
Internal Med Progress Note Date of Service: Jun 13, 2017. Provider Documentation: SUBJECTIVE: feeling somewhat better after blood transfusion nausea is better afebrile currently no chest pain or sob resting comfortably OBJECTIVE: Vital Signs-as noted below Exam: General-alert and oriented. Not in distress ENT-normal hearing Neck-no neck masses Lungs-cta b/l no wheezing bibasilar crackles present Heart-s1 and s2 heard regular rhythm, no murmurs Abdomen-soft bowel sounds present non tender distended Extremities no edema present no erythema Scrotal edema seen skin Bruise seen in right groin region Neuro-alert and oriented moves extremities Lab data as noted below. ASSESSMENT & PLAN: 72 year old male with history of CAD s/p FAM to the RCA, COPD, HTN, HLD, CKD presenting with chest pain x few days. CHEST PAIN, POSSIBLE ANGINA, DEMAND ISCHEMIA SECONDARY TO ANEMIA HISTORY OF CAD, S/P RCA DRUG ELUTING STENT, LAD STENOSIS - discharged from [facility] early this month, s/p Cardiac Cath, no stent placed on the LAD, (+) inguinal hematoma Serial CE negative await cardiology input continue home meds aspirin, Plavix, Imdur, metoprolol and statin currently chest pain free Acute blood loss anemia hb dropped to 9.6 from 13 post cath complication of groin hematoma. s/p one uni prbc hb 10.6 today will f/u labs EPISODE OF HYPOTENSION apparently was noted by EMS currently stable PERSISTENT NAUSEA/VOMITING, POOR ORAL INTAKE HISTORY OF DALE'S ESOPHAGUS, LARGE HIATAL HERNIA on clear liquid diet Protonix IV GI consulted-plan for egd after cardiac clearance INGUINAL HEMATOMA from Cardiac Cath 06/02/17 on Aspirin, Plavix, will monitor ALEXANDRE on 3 L nasal cannula at HS COPD stable on home bronchodilators CKD 3 last crea 2.1 cr>30 will f/u labs DVT PROPH SCDs in light of hematoma FULL CODE PER PATIENT DISPOSITION to be determined Vital Signs: Date Time Temp Pulse Resp B/P (MAP) Pulse Ox O2 Delivery O2 Flow Rate FiO2 06/13/17 08:00 Nasal Cannula 06/13/17 07:08 58 18 98 Nasal Cannula 3.0 06/13/17 06:45 36.4 55 16 144/83 98 3.0 06/13/17 06:30 54 18 142/79 95 3.0 06/13/17 06:15 36.6 55 18 146/82 97 3.0 06/13/17 06:00 36.5 56 16 138/82 97 3.0 06/13/17 05:42 36.8 56 18 129/74 97 3.0 06/13/17 04:00 Nasal Cannula 3.0 06/13/17 03:40 37.1 57 15 147/79 (101) 97 Nasal Cannula 3.0 06/13/17 02:04 101 20 103/69 (80) 94 Nasal Cannula 2.0 06/13/17 01:00 94 18 104/69 (81) 99 06/13/17 00:04 36.8 59 17 146/82 (103) 93 Nasal Cannula 3.0 06/13/17 00:00 97 100/67 (78) 06/13/17 00:00 Nasal Cannula 3.0 06/12/17 22:47 57 18 92 Room Air 06/12/17 21:17 36.9 60 18 140/85 94 Room Air 06/12/17 20:44 36.6 58 18 135/74 92 06/12/17 20:35 58 18 06/12/17 20:31 135/74 06/12/17 20:05 61 14 06/12/17 20:00 130/93 06/12/17 19:48 130/67 06/12/17 19:47 62 17 06/12/17 19:30 164/92 06/12/17 19:17 55 15 06/12/17 19:01 132/92 06/12/17 18:47 57 15 06/12/17 18:31 99/73 06/12/17 18:17 63 18 92 06/12/17 18:15 122/70 06/12/17 18:00 110/67 06/12/17 17:47 68 16 93 06/12/17 17:30 108/72 06/12/17 17:30 58 18 108/72 92 Room Air 06/12/17 17:17 57 15 91 06/12/17 17:15 92/66 06/12/17 17:00 95/67 06/12/17 16:47 62 14 91 06/12/17 16:45 102/64 06/12/17 16:43 93 Room Air 06/12/17 16:42 90 Room Air 06/12/17 16:38 61 06/12/17 16:38 36.6 65 16 119/64 96 Room Air 06/12/17 16:32 61 06/12/17 16:31 102/70 Lab Results: Results Past 24 Hours Test 06/12/17 17:44 06/12/17 20:25 06/12/17 23:19 06/13/17 01:46 Range/Units White Blood Count 7.47 4.8-10.8 K/uL Red Blood Count 2.88 4.7-6.1 M/uL Hemoglobin 9.6 9.2 14.0-18.0 g/dL Hematocrit 28.5 26.9 42-52 % Mean Corpuscular Volume 99.0 80-100 fL Mean Corpuscular Hemoglobin 33.3 25-34 pg Mean Corpuscular Hemoglobin Concent 33.7 32-36 g/dl Platelet Count 172 130-400 K/uL Mean Platelet Volume 9.1 7.4-10.4 fL Neutrophils (%) (Auto) 77.9 % Lymphocytes (%) (Auto) 9.8 % Monocytes (%) (Auto) 10.7 % Eosinophils (%) (Auto) 0.9 % Basophils (%) (Auto) 0.3 % Neutrophils # (Auto) 5.82 1.4-6.5 K/uL Lymphocytes # (Auto) 0.73 1.2-3.4 K/uL Monocytes # (Auto) 0.80 0.11-0.59 K/uL Eosinophils # (Auto) 0.07 0-0.5 K/uL Basophils # (Auto) 0.02 0-0.2 K/uL RDW Standard Deviation 58.4 36.4-46.3 fL RDW Coefficient of Variation 16.2 11.5-14.5 % Immature Granulocyte % (Auto) 0.4 % Immature Granulocyte # (Auto) 0.03 0.00-0.02 K/uL Prothrombin Time 12.2 9.0-12.0 SECONDS Prothromb Time International Ratio 1.1 0.9-1.1 Activated Partial Thromboplast Time 31.5 21.0-31.0 SECONDS Partial Thromboplastin Ratio 1.2 Sodium Level 140 136-145 mmol/L Potassium Level 4.1 3.5-5.1 mmol/L Chloride Level 109 98-107 mmol/L Carbon Dioxide Level 25 21-32 mmol/L Anion Gap 6.0 3-11 mmol/L Blood Urea Nitrogen 17 7-18 mg/dl Creatinine 2.30 0.60-1.40 mg/dl Est Creatinine Clear Calc Drug Dose 32.0 ml/min Estimated GFR () 31.7 Estimated GFR (Non- 27.3 BUN/Creatinine Ratio 7.2 10-20 Random Glucose 93 70-99 mg/dl Calcium Level 8.9 8.5-10.1 mg/dl Total Bilirubin 1.4 0.2-1 mg/dl Direct Bilirubin 0.4 0-0.2 mg/dl Aspartate Amino Transf (AST/SGOT) 18 15-37 U/L Alanine Aminotransferase (ALT/SGPT) 17 12-78 U/L Alkaline Phosphatase 60 45-117 U/L Troponin I 0.016 < 0.015 0-0.045 ng/ml Pro-B-Type Natriuretic Peptide 844 0-900 pg/ml Total Protein 6.6 6.4-8.2 gm/dl Albumin 3.2 3.4-5.0 gm/dl Lipase 98 73-393 U/L Urine Color DK YELLOW Urine Appearance CLEAR CLEAR Urine pH 6.5 4.5-7.5 Urine Specific [place] 1.020 1.000-1.030 Urine Protein 1+ NEG Urine Glucose (UA) TRACE NEG Urine Ketones NEG NEG Urine Occult Blood NEG NEG Urine Nitrite NEG NEG Urine Bilirubin NEG NEG Urine Urobilinogen NEG NEG Urine Leukocyte Esterase NEG NEG Urine WBC (Auto) 5-10 0-5 /hpf Urine RBC (Auto) 0-4 0-4 /hpf Urine Hyaline Casts (Auto) >30 0-5 /lpf Urine Epithelial Cells (Auto) >30 0-5 /lpf Urine Bacteria (Auto) NEG NEG Urine Renal Epithelial Cells 0-5 0-5 /lpf Urine Pathogenic Casts 1-5 WBC CASTS 0 /lpf Total Creatine Kinase 165 39-308 U/L Creatine Kinase MB 2.1 0.5-3.6 ng/ml Creatine Kinase MB Ratio 1.3 0-3.0 Test 06/13/17 05:58 06/13/17 09:24 Range/Units Sodium Level 141 136-145 mmol/L Potassium Level 3.8 3.5-5.1 mmol/L Chloride Level 110 98-107 mmol/L Carbon Dioxide Level 25 21-32 mmol/L Anion Gap 6.0 3-11 mmol/L Blood Urea Nitrogen 15 7-18 mg/dl Creatinine 2.10 0.60-1.40 mg/dl Est Creatinine Clear Calc Drug Dose 34.4 ml/min Estimated GFR () 35.4 Estimated GFR (Non- 30.5 BUN/Creatinine Ratio 7.3 10-20 Random Glucose 87 70-99 mg/dl Calcium Level 8.8 8.5-10.1 mg/dl Total Creatine Kinase 137 39-308 U/L Creatine Kinase MB 2.1 0.5-3.6 ng/ml Creatine Kinase MB Ratio 1.5 0-3.0 Troponin I < 0.015 0-0.045 ng/ml Hepatitis C Antibody Screen NEG NEG White Blood Count 7.15 4.8-10.8 K/uL Red Blood Count 3.14 4.7-6.1 M/uL Hemoglobin 10.6 14.0-18.0 g/dL Hematocrit 30.9 42-52 % Mean Corpuscular Volume 98.4 80-100 fL Mean Corpuscular Hemoglobin 33.8 25-34 pg Mean Corpuscular Hemoglobin Concent 34.3 32-36 g/dl Platelet Count 173 130-400 K/uL Mean Platelet Volume 9.3 7.4-10.4 fL Neutrophils (%) (Auto) 78.1 % Lymphocytes (%) (Auto) 8.8 % Monocytes (%) (Auto) 10.2 % Eosinophils (%) (Auto) 2.5 % Basophils (%) (Auto) 0.3 % Neutrophils # (Auto) 5.58 1.4-6.5 K/uL Lymphocytes # (Auto) 0.63 1.2-3.4 K/uL Monocytes # (Auto) 0.73 0.11-0.59 K/uL Eosinophils # (Auto) 0.18 0-0.5 K/uL Basophils # (Auto) 0.02 0-0.2 K/uL RDW Standard Deviation 57.6 36.4-46.3 fL RDW Coefficient of Variation 16.1 11.5-14.5 % Immature Granulocyte % (Auto) 0.1 % Immature Granulocyte # (Auto) 0.01 0.00-0.02 K/uL Microbiology Results 06/12/17 Blood Culture, Received Pending 06/12/17 Blood Culture, Received Pending
--- NOTE | 2017-06-13 10:54 | Cardiology Consultation ---
Cardiology Consultation Date of Consultation: Jun 13, 2017 History of Present Illness Moody Lorenzo is a 72 year old male seen in cardiology consultation per the request of Dr Crowell for the evaluation of chest pain. The patient's primary quality worker is Dr. Casanova. The patient's cardiac history dates back to 05/18/17 when he was seen in outpatient cardiac consultation by Dr. Casanova for one half year history of exertional chest discomfort. He was admitted to [facility] with unstable angina and underwent cardiac catheterization the next day revealed a high-grade calcified stenosis of the proximal right coronary artery as well as a 70% mid LAD stenosis. He was subsequently transferred to [facility] [place] further high-risk interventional therapy due to the complex anatomy of his coronaries. He suddenly underwent rotational atherectomy and drug-eluting stenting to the proximal right coronary artery. In the interim, he had several episodes of recurrent chest discomfort resolved with sublingual much glycerin, and ultimately was readmitted to the hospital in late May and transferred back to [facility]. On 06/02/17 he underwent repeat cardiac catheterization. Typically could not be passed. The right radial artery approach, and a left femoral artery approach was therefore taken, as he had had a cardiac catheter position via the right femoral artery previously this was still healing. The LAD lesion that by visual inspection appeared significant, was felt to not be hemodynamically significant by fractional flow reserve measurement of 0.85. Ongoing medical management was therefore recommended, and the patient did not receive LAD intervention. He did however have a left groin hematoma post procedure. He had a groin ultrasound that revealed no evidence of pseudoaneurysm. He was discharged. Since discharge, he has been in a great deal of pain with residual healing hematoma in his left groin, and ecchymosis that radiates into his scrotum. He noted that he had been feeling ill and not eating well. Yesterday he finally had his appetite back, and he was appearing a meal when he had recurrent chest discomfort prompting him to sit in a recliner chair. The discomfort eased up after 2 doses of sublingual nitroglycerin and he therefore presented to the emergency department by EMS for further evaluation. EKG performed in the ER dated 06/12/17 and 1623 revealed sinus rhythm at 60 bpm, with no significant ST changes. Repeat EKG today revealed sinus bradycardia at 57 bpm with first-degree AV block. Compared to when I had admitted him last month, his ST segments are improved. History of chest discomfort at present. His admitted with a hemoglobin of 9.6 and 9.2, I received a unit of packed red blood cells overnight. He took a long time to get the blood because of his history of antibodies. He states at present he feels well. History PAST MEDICAL HISTORY: 1. Tobacco abuse. 2. COPD. 3. Abdominal aortic aneurysm measuring 3.3 cm. 4. Sepulveda esophagitis. 5. Prostate cancer. 6. Polyneuropathy. 7. Dyslipidemia. 8. Hypertension. 9. Chronic kidney disease stage 4 with a baseline creatinine around 2 milligrams per deciliter 10. Chart history of genital herpes infection 11. Coronary heart disease, status post drug-eluting stent to the proximal right coronary artery May,, [facility], has residual 70% mid LAD lesion 12. Groin hematoma complicating most recent cardiac catheterization performed on at [facility], left femoral arterial access at that time PAST SURGICAL HISTORY: 1. IVC filter placement. 2. Total prostatectomy. 3. Bilateral shoulder replacements. 4. Bilateral hip replacements. 5. Cardiac catheterization in the 80s or 90s in [place] which he was told was normal. 6. Upper endoscopy. FAMILY HISTORY: Remarkable for father who suffered a fatal myocardial infarction at age 42. SOCIAL HISTORY: Patient is a long-term smoker, quit 5 years ago. Drinks occasional alcohol. Denies any recreational drug use. 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 He is . He lives at home with his . Review Of Systems See above for pertinent positives & negatives. A total of 10 systems reviewed and were otherwise negative. Allergies Coded Allergies: Benzocaine (Verified Allergy, Severe, SLOUGHING OF SKIN, 06/12/17) Clindamycin (Verified Allergy, Intermediate, RASH, 06/12/17) Clobetasol (Verified Allergy, Unknown, ITCHING, 06/12/17) Doxycycline (Verified Allergy, Unknown, RASH, 06/12/17) Penicillins (Verified Allergy, Unknown, HIVES, 06/12/17) Phenylethylamine (Verified Allergy, Unknown, ITCHING, 06/12/17) Tea Tree Oil (Verified Allergy, Unknown, ITCHING, 06/12/17) Medications Reported Home Medications Medications Dose Route/Sig Max Daily Dose Days Date Category Dose Instructions Protonix (Pantoprazole Sodium) 20 Mg Tab 20 Mg PO DAILY 06/12/17 Reported Zofran (Ondansetron HCl) 4 Mg Tab 4 Mg PO TID PRN 06/07/17 Rx Pepcid (Famotidine) 20 Mg Tab 20 Mg PO DAILY 06/07/17 Rx Azithromycin 1 Pkt Tab 1 Dose PO UD PRN 06/07/17 Reported Tylenol W/Codeine #3 (Acetaminophen W/ Codeine) 1 Tab Tab 1 Tab PO Q6H PRN 06/07/17 Reported Lipitor (Atorvastatin Calcium) 80 Mg Tab 80 Mg PO QPM 06/07/17 Reported Clopidogrel (Clopidogrel Bisulfate) 75 Mg Tab 75 Mg PO DAILY 05/31/17 Reported Nitrostat (Nitroglycerin) 0.4 Mg Tab 0.4 Mg UT PRN 05/31/17 Reported Lopressor (Metoprolol Tartrate) 25 Mg Tab 25 Mg PO BID 05/31/17 Reported Allopurinol 100 Mg Tab 100 Mg PO DAILY 05/31/17 Reported 100MG DAILY FOR 1 WEEK, THEN 200MG DAILY FOR 1 WEEK, THEN 300MG DAILY. STARTED 05/25/17 Imdur Ext Rel (Isosorbide Mononitrate) 30 Mg Tabcr 30 Mg PO DAILY 05/31/17 Reported Eucerin (Multi-Ingredient Ointment) Cre 1 Appln TOP DAILY PRN 05/18/17 Reported Stool Softener Plus Laxat (Sennosides-Docusate Sodium) 1 Tab Tab 1 Tab PO DAILY PRN 05/18/17 Reported Anusol-Hc (Hydrocortisone Acetate (Rectal) 25 Mg Sup 25 Mg RI BID PRN 05/18/17 Reported Multivitamin (Multivitamins) Tab 1 Tab PO DAILY 05/18/17 Reported Valtrex (Valacyclovir Hcl) 1 Gm Tab 1 Gm PO DAILY 05/18/17 Reported Pulmicort Respules 0.5MG/2ML (Budesonide (Inhalation)) 0.5 Mg/2 Ml Yareli 2 Ml NEB BID 03/04/17 Reported Prilosec (Omeprazole) 20 Mg Cap 20 Mg PO BID 03/04/17 Reported Lorazepam 0.5 Mg Tab 0.5 Mg PO TID PRN 03/04/17 Reported Deltasone (Prednisone) 20 Mg Tab 20 Mg PO UD PRN 03/04/17 Reported TAKE 2 TABLETS (40 MG) DAILY FOR 5 DAYS Vitamin D3 (Cholecalciferol) 2,000 Unit Cap 2,000 Inter.unit PO QPM 03/03/17 Reported Proventil 0.083% 2.5MG/3ML (Albuterol Sulf) 2.5 Mg/3 Ml Nebu 2.5 Mg NEB HS PRN 03/03/17 Reported Cyanocobalamin 1,000 Mcg/Ml Inj 1,000 Mcg IM MONTHLY 03/03/17 Reported Ferrous Sulfate 325 Mg Tab 325 Mg PO QPM 03/02/17 Reported Oxygen Gas 3 Liters NA HS 08/29/16 Reported Aristocort 0.1% (Triamcinolone Acet) 90 Appln/30 Gm Cr 1 Appln TOP UD PRN 07/31/14 Reported APPLY TWICE DAILY IF NEEDED FOR ITCHY LEGS Brovana (Arformoterol Tartrate) 15 Mcg/2 Ml Neb 15 Mcg NEB BID 05/19/14 Reported MIX WITH BEDESONIDE Aspir-81 (Aspirin) 81 Mg Tab 81 Mg PO QAM 05/19/14 Reported Combivent Respimat (Ipratropium-Albuterol) 1 Aer Aer 1 Puff INH QID PRN 05/19/14 Reported Physical Exam Vital Signs (Last 8hrs): Last 8 Hrs Date Time Temp Pulse Resp B/P (MAP) Pulse Ox O2 Delivery O2 Flow Rate FiO2 06/13/17 07:08 58 18 98 Nasal Cannula 3.0 06/13/17 06:45 36.4 55 16 144/83 98 3.0 06/13/17 06:30 54 18 142/79 95 3.0 06/13/17 06:15 36.6 55 18 146/82 97 3.0 06/13/17 06:00 36.5 56 16 138/82 97 3.0 06/13/17 05:42 36.8 56 18 129/74 97 3.0 06/13/17 04:00 Nasal Cannula 3.0 06/13/17 03:40 37.1 57 15 147/79 (101) 97 Nasal Cannula 3.0 06/13/17 02:04 101 20 103/69 (80) 94 Nasal Cannula 2.0 General Appearance: Alert and Oriented x3. NAD. Head: Normocephalic Atraumatic. Eyes: PERRLA, EOMI, conjunctiva and sclera clear Neck: Supple. No carotid bruits noted. No JVD. No HJD. Respiratory: Breath sounds clear to auscultation bilaterally. No w/r/r. Cardiovascular: Reg rate and rhythm. S1 and S2 noted. No murmurs, rubs, gallops. PMI non displace. Abdomen: Normal bowel sounds, soft nontender. no abdominal bruits. Extremities: Painful ecchymosis in the left groin, radiates around his left flank, into the left scrotum. Neuro: No focal deficits. Psychiatric: Normal affect. Data Last Resulted 06/13/17 09:24 Red Blood Count 3.14, Mean Corpuscular Volume 98.4, Mean Corpuscular Hemoglobin 33.8, Mean Corpuscular Hemoglobin Concent 34.3, Mean Platelet Volume 9.3, Neutrophils (%) (Auto) 78.1, Lymphocytes (%) (Auto) 8.8, Monocytes (%) (Auto) 10.2, Eosinophils (%) (Auto) 2.5, Basophils (%) (Auto) 0.3, Neutrophils # (Auto ) 5.58, Lymphocytes # (Auto) 0.63, Monocytes # (Auto) 0.73, Eosinophils # (Auto ) 0.18, Basophils # (Auto) 0.02 Last Resulted 06/13/17 05:58 Past 24 Hours Test 06/12/17 17:44 06/12/17 23:19 06/13/17 05:58 Range/Units Prothromb Time International Ratio 1.1 0.9-1.1 Prothrombin Time 12.2 H 9.0-12.0 SECONDS Troponin I 0.016 < 0.015 < 0.015 0-0.045 ng/ml Creatine Kinase MB 2.1 2.1 0.5-3.6 ng/ml Creatine Kinase MB Ratio 1.3 1.5 0-3.0 Total Creatine Kinase 165 137 39-308 U/L EKG as noted above, telemetry reveals stable sinus rhythm Assessment & Plan Impression: 72-year-old male 1. Chest discomfort that occurred with exerting himself, cooking yesterday, negative enzymes, negative EKG 2. Recent rotational atherectomy, drug-eluting stent to the proximal right coronary artery in May 2017 3. Residual 70% LAD stenosis 4. Recent left groin hematoma after cardiac catheterization, ultrasound postprocedure [facility] revealed no evidence of pseudoaneurysm or AV fistula 5. Anemia, in part likely related to his chronic kidney disease, and recent blood loss from hematoma Plan: At present, he is feeling much improved having received transfusion. His hemoglobin on repeat is above 10 g/dL. Reviewed the patient's diagnostic cardiac catheterization films performed at [facility], and the LAD lesion does seem to be significant by visual assessment. I had discussed his case with Dr. Hooker of interventional cardiology at [facility], who agreed that given his recurrent pain that was responsive to nitroglycerin, proceeding with another cardiac cath and intervention would be reasonable, although based on the fractional flow reserve measurements, we cannot guarantee that the patient's discomfort would be relieved. The patient however feels better at present, and the patient and I are both in agreement, that he needs to heal up a little bit more status post recent left groin hematoma and pulled up his strength before repeat cardiac catheterization can be completed. Since this PCI does not require emergent intervention, I think waiting, optimizing his hemoglobin, improving his strength would be a reasonable choice first. He is already on isosorbide mononitrate at a dose of 30 mg this is going to be increased to 60 mg. His baseline heart rate is approximately 55 bpm, and so his metoprolol dose cannot be increased at present. Plan to keep the patient in the hospital for further observation at least today. Champ Rodriguez, DO
--- NOTE | 2017-06-13 10:58 | Cardiology Progress Note ---
Cardiology Progress Note Date of Service Jun 13, 2017. Cardiology Progress Note I have cancelled his echo, given lack of chest pain this am, normal EKG tracings , and normal enzymes, no longer indicated.
[2017-06-13] MEDS ORDERED: ISOSORBIDE MONONITRATE 30 MG TABCR PO ONE (12:00)
[2017-06-13] MEDS: ATORVASTATIN 40 MG TAB PO SCH (20:46)
[2017-06-14] VITALS (12 sets, daily range): BP systolic 106–143; BP diastolic 67–77; PULSE 52–96; TEMP 36.5–37.7; O2SAT 92–99
[2017-06-14 07:11] LABS: BASO % 0.2 %; BASO ABS # 0.01 K/uL (0-0.2); COMPLETE YES; EOS % 4.6 %; HEMATOCRIT 31.3 % (42-52); IG% 0.4 %; LYMPH % 16.8 %; LYMPH ABS # 0.88 K/uL (1.2-3.4); MEAN CELL VOLUME 98.1 fL (80-100); MEAN CORPUSCULAR HEMOGLOBIN 32.3 pg (25-34); MEAN CORPUSCULAR HGB CONC 32.9 g/dl (32-36); MEAN PLATELET VOLUME 9.4 fL (7.4-10.4); MONO % 8.6 %; NEUT % 69.4 %; PLATELET COUNT 181 K/uL (130-400); RED BLOOD COUNT 3.19 M/uL (4.7-6.1); WHITE BLOOD COUNT 5.25 K/uL (4.8-10.8)
[2017-06-14] MEDS: ARFORMOTEROL TART 15MCG/2ML VIAL INH SCH ×2 (07:17→19:02)
[2017-06-14] MEDS: BUDESONIDE 0.5 MG/2 ML VIAL (PULMICORT) INH SCH ×2 (07:17→19:02)
[2017-06-14 07:38] LABS: BUN/CREATININE RATIO 5.9 (10-20); CALCIUM 8.5 mg/dl (8.5-10.1); CREATININE 1.8 mg/dl (0.60-1.40); POTASSIUM 3.5 mmol/L (3.5-5.1)
--- NOTE | 2017-06-14 08:07 | Gastroenterology Progress Note ---
Progress Note Date of Service: Jun 14, 2017 Subjective Pt evaluation today including: conversation w/ patient, physical exam, chart review, lab review Pt was seen and examined, chart reviewed. No acute events overnight. He offers no complaints this AM, specifically no nausea, vomiting or abdominal pain. Moves his bowels well - unsure of stool consistency or appearance as he does not assess. Getting UGI series this AM. No fever, chills, CP, SOB. Review of Systems Constitutional: No fever, No chills Respiratory: No cough, No shortness of breath Cardiac: No chest pain, No edema Abdomen: No pain, No nausea, No vomiting Medications Current Inpatient Medications Medications (Trade) Dose Ordered Sig/Chata Route Start Time Stop Time Status Last Admin Dose Admin Pantoprazole Sodium 40 mg/ Syringe 10 ml @ 5 mls/min DAILY@11 IV 06/13/17 11:00 07/13/17 10:59 06/13/17 10:16 5 MLS/MIN Acetaminophen (Tylenol Tab) 650 mg Q4H PRN PO 06/12/17 21:15 07/12/17 21:14 Ondansetron HCl (Zofran Inj) 4 mg Q6H PRN IV 06/12/17 21:15 07/12/17 21:14 Nitroglycerin (Nitrostat Tab) 0.4 mg UD PRN SL 06/12/17 21:15 07/12/17 21:14 Allopurinol (Zyloprim Tab) 100 mg DAILY PO 06/13/17 09:00 07/13/17 08:59 06/13/17 08:23 100 MG Arformoterol Tartrate (Brovana 15MCG/ 2ML Neb Soln) 15 mcg BIDR INH 06/13/17 08:00 07/13/17 07:59 06/14/17 07:17 15 MCG Aspirin (Ecotrin Tab) 81 mg QAM PO 06/13/17 09:00 07/13/17 08:59 06/13/17 08:24 81 MG Atorvastatin Calcium (Lipitor Tab) 80 mg QPM PO 06/13/17 21:00 07/13/17 20:59 06/13/17 20:46 80 MG Budesonide (Pulmicort Respules 0.5MG/ 2ML Neb Soln) 1 mg BIDR INH 06/13/17 08:00 07/13/17 07:59 06/14/17 07:17 1 MG Clopidogrel Bisulfate (plAVix TAB) 75 mg DAILY PO 06/13/17 09:00 07/13/17 08:59 06/13/17 08:24 75 MG Famotidine (Pepcid Tab) 20 mg DAILY PO 06/13/17 09:00 07/13/17 08:59 06/13/17 08:24 20 MG Lorazepam (Ativan Tab) 0.5 mg TID PRN PO 06/12/17 21:15 07/12/17 21:14 Metoprolol Tartrate (Lopressor Tab) 25 mg BID PO 06/13/17 09:00 07/13/17 08:59 06/13/17 20:46 25 MG Isosorbide Mononitrate (Imdur Ext Rel Tab) 60 mg QAM PO 06/14/17 09:00 07/14/17 08:59 Objective Vital Signs Date Time Temp Pulse Resp B/P (MAP) Pulse Ox O2 Delivery O2 Flow Rate FiO2 06/14/17 07:41 36.8 72 18 143/69 (93) 96 06/14/17 07:20 54 18 92 Room Air 06/14/17 04:00 Room Air 06/14/17 03:32 36.8 52 17 141/74 (96) 99 Nasal Cannula 3.0 06/14/17 01:03 Room Air 06/13/17 23:09 36.9 52 17 137/79 (98) 95 Room Air 06/13/17 20:00 Room Air 06/13/17 19:34 36.6 63 20 125/68 (87) 93 Room Air 06/13/17 19:07 64 18 95 Room Air 06/13/17 16:05 Room Air 06/13/17 15:46 36.4 51 22 138/80 (99) 95 Room Air 06/13/17 12:15 37.0 69 18 134/69 (90) 96 06/13/17 12:00 Nasal Cannula Physical Exam General Appearance: no apparent distress (resting in bed) Neck: supple Respiratory/Chest: lungs clear Cardiovascular: regular rate, rhythm, no edema Abdomen: normal bowel sounds, non tender, soft, no organomegaly Neurologic/Psych: alert, normal mood/affect, oriented x 3 Skin: normal color Laboratory Results Last 24 Hours Test 06/13/17 09:24 06/13/17 14:10 06/14/17 06:44 White Blood Count 7.15 K/uL 5.25 K/uL Red Blood Count 3.14 M/uL 3.19 M/uL Hemoglobin 10.6 g/dL 10.3 g/dL Hematocrit 30.9 % 31.3 % Mean Corpuscular Volume 98.4 fL 98.1 fL Mean Corpuscular Hemoglobin 33.8 pg 32.3 pg Mean Corpuscular Hemoglobin Concent 34.3 g/dl 32.9 g/dl Platelet Count 173 K/uL 181 K/uL Mean Platelet Volume 9.3 fL 9.4 fL Neutrophils (%) (Auto) 78.1 % 69.4 % Lymphocytes (%) (Auto) 8.8 % 16.8 % Monocytes (%) (Auto) 10.2 % 8.6 % Eosinophils (%) (Auto) 2.5 % 4.6 % Basophils (%) (Auto) 0.3 % 0.2 % Neutrophils # (Auto) 5.58 K/uL 3.65 K/uL Lymphocytes # (Auto) 0.63 K/uL 0.88 K/uL Monocytes # (Auto) 0.73 K/uL 0.45 K/uL Eosinophils # (Auto) 0.18 K/uL 0.24 K/uL Basophils # (Auto) 0.02 K/uL 0.01 K/uL RDW Standard Deviation 57.6 fL 57.0 fL RDW Coefficient of Variation 16.1 % 15.8 % Immature Granulocyte % (Auto) 0.1 % 0.4 % Immature Granulocyte # (Auto) 0.01 K/uL 0.02 K/uL Sodium Level 141 mmol/L Potassium Level 3.5 mmol/L Chloride Level 110 mmol/L Carbon Dioxide Level 24 mmol/L Anion Gap 7.0 mmol/L Blood Urea Nitrogen 11 mg/dl Creatinine 1.80 mg/dl Est Creatinine Clear Calc Drug Dose 39.8 ml/min Estimated GFR () 42.6 Estimated GFR (Non- 36.8 BUN/Creatinine Ratio 5.9 Random Glucose 86 mg/dl Calcium Level 8.5 mg/dl Assessment and Plan Patient is a 72 year old male with hx of unstable angina transferred to [facility] in 06/01/17 S/P cardiac catheterization with an un-stentable LAD lesion who was told to follow up with cardiology locally and use ASA and plavix daily who was admitted to [facility] with chest pain - chest XR was negative, troponin negative, ECHO pending and cardiology consult pending that GI is following for weight loss, nausea and chest pain. No ETOH, daily ASA no other NSAIDs - Etiology of chest pain unclear, perhaps secondary to large HH. He is extremely high risk for endoscopic evaluation and would need cardiac clearance prior to endoscopic evaluation. 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 Likely without diverticulitis as WBC is nonelevated. No change in plan GI to sign off. Please call or reconsult with any questions or concerns. I saw and evaluated the patient. We reviewed his upper GI series which showed a small duodenal diverticulum. At this time upper endoscopy is not to be offered as he has continued problems with his cardiac status. Please call with any questions or concerns, we will sign off at this time.
[2017-06-14] MEDS: CLOPIDOGREL BISULFATE 75 MG TAB PO SCH (08:49)
[2017-06-14] MEDS: METOPROLOL TARTRATE 25 MG TAB PO SCH ×2 (08:49→21:26)
[2017-06-14] MEDS: FAMOTIDINE 20 MG TAB PO SCH (08:50)
[2017-06-14] MEDS: ALLOPURINOL 100 MG TAB PO SCH (08:50)
[2017-06-14] MEDS: ASPIRIN 81 MG ECTAB PO SCH (08:50)
[2017-06-14] MEDS: ISOSORBIDE MONONITRATE 60 MG TABCR PO SCH (08:50)
[2017-06-14] MEDS ORDERED: POTASSIUM CHLORIDE 10 MEQ TABCR PO STA (09:24)
--- NOTE | 2017-06-14 10:12 | Cardiology Follow-Up ---
Subjective General Date of Service: Jun 14, 2017. Chief Complaint: follow up chest pain, left groing pain Pt evaluation today including: conversation w/ patient, physical exam History of Present Illness The patient is a 72 year old male seen in cardiology follow-up. Patient describes mild chest discomfort this morning. He is still in a great deal of pain regarding his left groin that makes it difficult for him to move in bed. Telemetry reveals stable sinus rhythm. EKG reveals stable findings without significant ST changes. He tolerated increasing his dose of isosorbide mononitrate yesterday from 30 mg to 60 mg. Allergies Coded Allergies: Benzocaine (Verified Allergy, Severe, SLOUGHING OF SKIN, 06/12/17) Clindamycin (Verified Allergy, Intermediate, RASH, 06/12/17) Clobetasol (Verified Allergy, Unknown, ITCHING, 06/12/17) Doxycycline (Verified Allergy, Unknown, RASH, 06/12/17) Penicillins (Verified Allergy, Unknown, HIVES, 06/12/17) Phenylethylamine (Verified Allergy, Unknown, ITCHING, 06/12/17) Tea Tree Oil (Verified Allergy, Unknown, ITCHING, 06/12/17) Social History Smoking Status: Former Smoker Hx Tobacco Use In Past Year?: Yes (CIGAR WEEKLY) Hx Alcohol Use - Type And Amou: Yes (WINE OR BEER OCCASIONALLY) Hx Substance Use - Type And Am: No Problem List Medical Problems: (1) Acute kidney failure Status: Acute (2) Anemia Status: Acute (3) Cellulitis of foot, right Status: Acute (4) Cellulitis of right foot Status: Acute (5) Cellulitis of right foot Status: Acute (6) Chest pain Status: Acute (7) Chronic kidney disease Status: Acute (8) Failure of outpatient treatment Status: Acute (9) Gastritis Status: Acute (10) Melena Status: Acute (11) NSTEMI (non-ST elevated myocardial infarction) Status: Acute (12) Precordial chest pain Status: Acute Physical Exam Vital Signs Last Vital Signs Documentation Date Time Temp Pulse Resp B/P (MAP) Pulse Ox O2 Delivery O2 Flow Rate FiO2 06/14/17 07:41 36.8 72 18 143/69 (93) 96 06/14/17 07:20 Room Air 06/14/17 03:32 3.0 Physical Exam Constitutional: Level of Distress: NAD Head: atraumatic Neck: supple Lungs: Auscultation: no wheezing, no rales/crackles, no rhonchi Cardiovascular: Heart Auscultation: RRR, no murmurs Extremities: no edema, pertinent finding (left groin hematoma remnants noted, with ecchymosis, and tenderness above the left inguinal ligament) Neurologic: Gait & Station: pertinent finding (no focal neurologic deficits) Assessment and Plan Assessment and Plan Impression: 72-year-old male 1. Chest discomfort that occurred with exerting himself, cooking , negative enzymes, negative EKG 2. Recent rotational atherectomy, drug-eluting stent to the proximal right coronary artery in May 2017 3. Residual 70% LAD stenosis 4. Recent left groin hematoma after cardiac catheterization, ultrasound postprocedure [facility] revealed no evidence of pseudoaneurysm or AV fistula 5. Anemia, in part likely related to his chronic kidney disease, and recent blood loss from hematoma Plan: As documented in my prior progress note. The patient's diagnosis of coronary disease dates back to May 2017 when he underwent cardiac catheterization in the setting of unstable angina with negative cardiac enzymes on presentation during that hospital stay and dynamic ST changes on EKG. Diagnostic catheterization performed at [facility] revealed two-vessel CAD with complex calcified coronary anatomy. He was transferred to [facility] and underwent rotational atherectomy, drug-eluting stent of the proximal right coronary artery stenosis and the patient was tentatively scheduled to return for staged intervention of the 70% mid LAD stenosis. The LAD was not addressed at the same time of the right coronary artery due to limitations regarding fluoroscopy time exposure, and contrast in the setting of chronic kidney disease with baseline creatinine of 2 mg/dL. The patient however had returned with recurrent chest discomfort prior to his planned staged LAD PCI, was reassessed by his primary cans vacuum tester Dr. Casanova, and was transferred back to [facility] where cardiac catheterization place on 06/02/17. At that time fractional flow reserve measurement was made and was felt that the LAD lesion was not hemodynamically significant and therefore medical management was recommended and he did not receive PCI. Patient however has had recurrent anginal symptoms, and at this point, if he continues to have symptoms despite maximum medication therapy, we'll need to consider repeat cardiac catheterization for PCI. The patient however is still recovering from his groin hematoma, given his negative EKG and negative enzymes , I felt it was prudent to wait yesterday, optimize medications, and replete his hemoglobin. His hemoglobin is now greater than 10. At this time we'll move forward with an ultrasound to the left groin, as I'm concerned about his level of discomfort. Despite the negative ultrasound that he had post cath with no evidence of AV fistula or pseudoaneurysm, I think at this point we need to reassess his visually. Regarding his weight loss, and GI symptoms. I agree that workup with EGD is indicated, I think it needs to be delayed, likely in until after his LAD is revascularized. He will need to remain on dual antiplatelet therapy without interruption due to his recent coronary stents. Nont on ACEI or ARB at baseline due to baseline creatine > 2. Plan-US of groin. Remain in hospital. Hold of on EGD pending optimization of cardiac status. Add amlodipine 2.5 mg for further antianginal effect. Unable to increase metoprolol given bradycardia. Laboratory Results Last 24 Hours Test 06/13/17 14:10 06/14/17 06:44 White Blood Count 5.25 K/uL Red Blood Count 3.19 M/uL Hemoglobin 10.3 g/dL Hematocrit 31.3 % Mean Corpuscular Volume 98.1 fL Mean Corpuscular Hemoglobin 32.3 pg Mean Corpuscular Hemoglobin Concent 32.9 g/dl Platelet Count 181 K/uL Mean Platelet Volume 9.4 fL Neutrophils (%) (Auto) 69.4 % Lymphocytes (%) (Auto) 16.8 % Monocytes (%) (Auto) 8.6 % Eosinophils (%) (Auto) 4.6 % Basophils (%) (Auto) 0.2 % Neutrophils # (Auto) 3.65 K/uL Lymphocytes # (Auto) 0.88 K/uL Monocytes # (Auto) 0.45 K/uL Eosinophils # (Auto) 0.24 K/uL Basophils # (Auto) 0.01 K/uL RDW Standard Deviation 57.0 fL RDW Coefficient of Variation 15.8 % Immature Granulocyte % (Auto) 0.4 % Immature Granulocyte # (Auto) 0.02 K/uL Sodium Level 141 mmol/L Potassium Level 3.5 mmol/L Chloride Level 110 mmol/L Carbon Dioxide Level 24 mmol/L Anion Gap 7.0 mmol/L Blood Urea Nitrogen 11 mg/dl Creatinine 1.80 mg/dl Est Creatinine Clear Calc Drug Dose 39.8 ml/min Estimated GFR () 42.6 Estimated GFR (Non- 36.8 BUN/Creatinine Ratio 5.9 Random Glucose 86 mg/dl Calcium Level 8.5 mg/dl
[2017-06-14] MEDS ORDERED: AMLODIPINE BESYLATE 5 MG TAB PO ONE (10:45)
--- NOTE | 2017-06-14 11:08 | DIAGNOSTIC IMAGING REPORT ---
GI SERIES W/AIR ROUTINE CLINICAL HISTORY: HH, cao's, abdominal pain COMPARISON STUDY: FLUOROSCOPY TIME: 2.9 minutes. NUMBER OF FLUOROSCOPIC IMAGES: 30 FINDINGS: The patient swallowed effervescent granules and barium without difficulty. There is a small hiatal hernia. There is reflux. No esophageal masses are visualized. No gastric masses are visualized. The duodenal bulb appears normal. Ligament Treitz is located in the normal anatomical position. There is a diverticulum arising from the transverse duodenum. Incidental note is made of an IVC filter. IMPRESSION: 1. Small hiatal hernia with gastroesophageal reflux 2. Duodenal diverticulum 3. No esophageal or gastric masses identified Electronically signed by: Darius Muro M.D. 06/14/2017 11:06 AM Dictated Date/Time: 06/14/2017 11:05 AM
[2017-06-14] MEDS ORDERED: ACETAMINOPHEN 325 MG TAB PO SCH (12:00)
[2017-06-14] MEDS: PANTOprazole INJ 40 MG in SYRINGE 0 ML IV SCH (12:03)
--- NOTE | 2017-06-14 12:17 | DIAGNOSTIC IMAGING REPORT ---
LEFT INGUINAL ULTRASOUND WITH DUPLEX STUDY CLINICAL HISTORY: pain, groin hematoma, r/o AV fistula,pseudoanerysm COMPARISON STUDY: Abdomen and pelvis CT 06/07/2017. FINDINGS: Real-time sonographic imaging of the left groin with duplex imaging of the left common femoral vessels was performed. The left common femoral vein and common femoral artery are patent. No pseudoaneurysm identified. IMPRESSION: The left common femoral vein and artery are patent. No pseudoaneurysm identified. Electronically signed by: Geovani Turner M.D. 06/14/2017 12:15 PM Dictated Date/Time: 06/14/2017 12:13 PM
--- NOTE | 2017-06-14 18:11 | Progress Note ---
Internal Med Progress Note Date of Service: Jun 14, 2017. Provider Documentation: SUBJECTIVE: has occasional chest pain requesting to give one more unit of blood as he knows his bdy better and thinks one more unit will help with his chest pains afebrile no sob has left groin pain OBJECTIVE: Vital Signs-as noted below Exam: General-alert and oriented. Not in distress ENT-normal hearing Neck-no neck masses Lungs-cta b/l no wheezing bibasilar crackles present Heart-s1 and s2 heard regular rhythm, no murmurs Abdomen-soft bowel sounds present non tender distended Extremities no edema present no erythema Scrotal edema seen skin Bruise seen in right and left groin region Neuro-alert and oriented moves extremities Lab data as noted below. ASSESSMENT & PLAN: 72 year old male with history of CAD s/p FAM to the RCA, COPD, HTN, HLD, CKD presenting with chest pain x few days. CHEST PAIN, POSSIBLE ANGINA, DEMAND ISCHEMIA SECONDARY TO ANEMIA HISTORY OF CAD, S/P RCA DRUG ELUTING STENT, LAD STENOSIS - discharged from [facility] early this month, s/p Cardiac Cath, no stent placed on the LAD, (+) inguinal hematoma Serial CE negative await cardiology input continue home meds aspirin, Plavix, Imdur, metoprolol and statin medical management for now and plan for repeat cardiac cath for LAD lesions when his groins form cath heals. Acute blood loss anemia hb dropped to 9.6 from 13 post cath complication of groin hematoma. s/p one unit prbc hb 10.3 today transfusing one more unit as per patient request will f/u labs EPISODE OF HYPOTENSION apparently was noted by EMS currently stable PERSISTENT NAUSEA/VOMITING, POOR ORAL INTAKE HISTORY OF DALE'S ESOPHAGUS, LARGE HIATAL HERNIA weight loss on clear liquid diet Protonix IV GI consulted-plan for egd after cardiac clearance s/p GI series- small hiatal hernia,duodenal diverticulum Cardiology recommends to wait for invasive GI workup until his LAD lesion is stented. INGUINAL HEMATOMA from Cardiac Cath 06/02/17 on Aspirin, Plavix, ultrasound today no pseudoaneurysm will monitor ALEXANDRE on 3 L nasal cannula at HS COPD stable on home bronchodilators CKD 3 last crea 2.1 cr>30 will f/u labs DVT PROPH SCDs in light of hematoma FULL CODE PER PATIENT DISPOSITION to be determined pt/ot in am if stable Vital Signs: Date Time Temp Pulse Resp B/P (MAP) Pulse Ox O2 Delivery O2 Flow Rate FiO2 06/14/17 16:00 Room Air 06/14/17 15:49 36.5 65 16 106/71 96 06/14/17 14:49 36.5 65 16 121/75 95 06/14/17 14:23 36.6 96 16 109/67 96 06/14/17 13:51 36.9 65 16 111/73 95 06/14/17 13:34 36.7 59 16 118/76 95 06/14/17 13:18 37.7 55 16 119/72 94 06/14/17 12:00 Room Air 06/14/17 08:00 Room Air 06/14/17 07:41 36.8 72 18 143/69 (93) 96 06/14/17 07:20 54 18 92 Room Air 06/14/17 04:00 Room Air 06/14/17 03:32 36.8 52 17 141/74 (96) 99 Nasal Cannula 3.0 06/14/17 01:03 Room Air 06/13/17 23:09 36.9 52 17 137/79 (98) 95 Room Air 06/13/17 20:00 Room Air 06/13/17 19:34 36.6 63 20 125/68 (87) 93 Room Air 06/13/17 19:07 64 18 95 Room Air Lab Results: Results Past 24 Hours Test 06/14/17 06:44 Range/Units White Blood Count 5.25 4.8-10.8 K/uL Red Blood Count 3.19 4.7-6.1 M/uL Hemoglobin 10.3 14.0-18.0 g/dL Hematocrit 31.3 42-52 % Mean Corpuscular Volume 98.1 80-100 fL Mean Corpuscular Hemoglobin 32.3 25-34 pg Mean Corpuscular Hemoglobin Concent 32.9 32-36 g/dl Platelet Count 181 130-400 K/uL Mean Platelet Volume 9.4 7.4-10.4 fL Neutrophils (%) (Auto) 69.4 % Lymphocytes (%) (Auto) 16.8 % Monocytes (%) (Auto) 8.6 % Eosinophils (%) (Auto) 4.6 % Basophils (%) (Auto) 0.2 % Neutrophils # (Auto) 3.65 1.4-6.5 K/uL Lymphocytes # (Auto) 0.88 1.2-3.4 K/uL Monocytes # (Auto) 0.45 0.11-0.59 K/uL Eosinophils # (Auto) 0.24 0-0.5 K/uL Basophils # (Auto) 0.01 0-0.2 K/uL RDW Standard Deviation 57.0 36.4-46.3 fL RDW Coefficient of Variation 15.8 11.5-14.5 % Immature Granulocyte % (Auto) 0.4 % Immature Granulocyte # (Auto) 0.02 0.00-0.02 K/uL Sodium Level 141 136-145 mmol/L Potassium Level 3.5 3.5-5.1 mmol/L Chloride Level 110 98-107 mmol/L Carbon Dioxide Level 24 21-32 mmol/L Anion Gap 7.0 3-11 mmol/L Blood Urea Nitrogen 11 7-18 mg/dl Creatinine 1.80 0.60-1.40 mg/dl Est Creatinine Clear Calc Drug Dose 39.8 ml/min Estimated GFR () 42.6 Estimated GFR (Non- 36.8 BUN/Creatinine Ratio 5.9 10-20 Random Glucose 86 70-99 mg/dl Calcium Level 8.5 8.5-10.1 mg/dl
[2017-06-14] MEDS: ATORVASTATIN 40 MG TAB PO SCH (21:26)
[2017-06-14] MEDS ORDERED: DOCUSATE SODIUM 100 MG CAP PO ONE (21:44)
[2017-06-15 04:35] VITALS: BP 138/77; PULSE 52; TEMP 36.8; O2SAT 95
[2017-06-15] MEDS: BUDESONIDE 0.5 MG/2 ML VIAL (PULMICORT) INH SCH (07:17)
[2017-06-15] MEDS: ARFORMOTEROL TART 15MCG/2ML VIAL INH SCH (07:17)
[2017-06-15 07:18] VITALS: PULSE 59; O2SAT 91
[2017-06-15] MEDS: METOPROLOL TARTRATE 25 MG TAB PO SCH (07:43)
[2017-06-15] MEDS: FAMOTIDINE 20 MG TAB PO SCH (07:44)
[2017-06-15] MEDS: CLOPIDOGREL BISULFATE 75 MG TAB PO SCH (07:45)
[2017-06-15] MEDS: ALLOPURINOL 100 MG TAB PO SCH (07:46)
[2017-06-15 07:56] VITALS: BP 147/90; PULSE 86; TEMP 36.8; O2SAT 95
[2017-06-15 08:04] LABS: BASO % 0.2 %; BASO ABS # 0.01 K/uL (0-0.2); COMPLETE YES; EOS % 5.5 %; HEMATOCRIT 34.1 % (42-52); IG% 0.2 %; LYMPH % 17.8 %; LYMPH ABS # 0.84 K/uL (1.2-3.4); MEAN CELL VOLUME 95.5 fL (80-100); MEAN CORPUSCULAR HEMOGLOBIN 32.5 pg (25-34); MEAN PLATELET VOLUME 9.5 fL (7.4-10.4); NEUT % 65.3 %; PLATELET COUNT 181 K/uL (130-400); RED BLOOD COUNT 3.57 M/uL (4.7-6.1); WHITE BLOOD COUNT 4.72 K/uL (4.8-10.8)
[2017-06-15 08:27] LABS: BUN/CREATININE RATIO 7.5 (10-20); CALCIUM 9.3 mg/dl (8.5-10.1); CREATININE 1.8 mg/dl (0.60-1.40); POTASSIUM 3.6 mmol/L (3.5-5.1)
[2017-06-15] MEDS ORDERED: DOCUSATE SODIUM 100 MG CAP PO SCH (09:00)
[2017-06-15] MEDS ORDERED: AMLODIPINE BESYLATE 5 MG TAB PO SCH (09:00)
[2017-06-15] MEDS: ISOSORBIDE MONONITRATE 60 MG TABCR PO SCH (09:12)
[2017-06-15] MEDS: ASPIRIN 81 MG ECTAB PO SCH (09:12)
--- NOTE | 2017-06-15 10:04 | Cardiology Follow-Up ---
Subjective General Date of Service: Jun 15, 2017. Chief Complaint: follow up chest pain, left groing pain Pt evaluation today including: conversation w/ patient, physical exam History of Present Illness The patient is a 72 year old male seen in follow-up. The patient is in good spirits. He states he feels "great!". Denies any chest discomfort. His groin pain is stable. Since he was seen yesterday, he underwent a lower extremity ultrasound to reassess his area of groin hematoma that revealed a patent left common femoral vein and artery. No pseudoaneurysm or AV fistula was identified. Telemetry reveals stable sinus rhythm. Allergies Coded Allergies: Benzocaine (Verified Allergy, Severe, SLOUGHING OF SKIN, 06/12/17) Clindamycin (Verified Allergy, Intermediate, RASH, 06/12/17) Clobetasol (Verified Allergy, Unknown, ITCHING, 06/12/17) Doxycycline (Verified Allergy, Unknown, RASH, 06/12/17) Penicillins (Verified Allergy, Unknown, HIVES, 06/12/17) Phenylethylamine (Verified Allergy, Unknown, ITCHING, 06/12/17) Tea Tree Oil (Verified Allergy, Unknown, ITCHING, 06/12/17) Social History Smoking Status: Former Smoker Hx Tobacco Use In Past Year?: Yes (CIGAR WEEKLY) Hx Alcohol Use - Type And Amou: Yes (WINE OR BEER OCCASIONALLY) Hx Substance Use - Type And Am: No Problem List Medical Problems: (1) Acute kidney failure Status: Acute (2) Anemia Status: Acute (3) Cellulitis of foot, right Status: Acute (4) Cellulitis of right foot Status: Acute (5) Cellulitis of right foot Status: Acute (6) Chest pain Status: Acute (7) Chronic kidney disease Status: Acute (8) Failure of outpatient treatment Status: Acute (9) Gastritis Status: Acute (10) Melena Status: Acute (11) NSTEMI (non-ST elevated myocardial infarction) Status: Acute (12) Precordial chest pain Status: Acute Physical Exam Vital Signs Last Vital Signs Documentation Date Time Temp Pulse Resp B/P (MAP) Pulse Ox O2 Delivery O2 Flow Rate FiO2 06/15/17 07:56 36.8 86 18 147/90 (109) 95 06/15/17 07:18 Room Air 06/14/17 03:32 3.0 Physical Exam Constitutional: Level of Distress: NAD Head: atraumatic Neck: supple Lungs: Auscultation: no wheezing, no rales/crackles, no rhonchi Cardiovascular: Heart Auscultation: RRR, no murmurs Extremities: no edema, pertinent finding (left groin hematoma remnants noted, with ecchymosis, and tenderness above the left inguinal ligament) Neurologic: Gait & Station: pertinent finding (no focal neurologic deficits) Assessment and Plan Assessment and Plan Impression: 72-year-old male 1. Chest discomfort that occurred with exerting himself, cooking , negative enzymes, negative EKG 2. Recent rotational atherectomy, drug-eluting stent to the proximal right coronary artery in May 2017 3. Residual 70% LAD stenosis 4. Recent left groin hematoma after cardiac catheterization, ultrasound postprocedure [facility] revealed no evidence of pseudoaneurysm or AV fistula 5. Anemia, in part likely related to his chronic kidney disease, and recent blood loss from hematoma Plan: At this point, history for discharge. His isosorbide mononitrate extended- release dose was increased from 30 mg daily to 60 mg daily. He is to be discharged on the prior to hospital dose of metoprolol. Amlodipine 2??5 mg daily was added for extra blood pressure and antianginal effect. Regarding his weight loss, and GI symptoms. I agree that workup with EGD is indicated, I think it needs to be delayed, likely in until after his LAD is revascularized. He will need to remain on dual antiplatelet therapy without interruption due to his recent coronary stents. He has not on ACEI or ARB at baseline due to baseline creatine~ 2. Patient with stable exertional angina symptom at present. Continue medication therapy. If he has continued exertional angina despite optimized medical therapy, will plan for [facility] in [place] for PCI of the LAD after he heals little more from his groin hematoma. The patient is stable for discharge from a cardiac standpoint. He tells me that he has an upcoming follow-up visit with Dr. Casanova in cardiology clinic. At that point he will be reassessed, and timing of cardiac catheterization will be determined. Laboratory Results Last 24 Hours Test 06/15/17 07:24 White Blood Count 4.72 K/uL Red Blood Count 3.57 M/uL Hemoglobin 11.6 g/dL Hematocrit 34.1 % Mean Corpuscular Volume 95.5 fL Mean Corpuscular Hemoglobin 32.5 pg Mean Corpuscular Hemoglobin Concent 34.0 g/dl Platelet Count 181 K/uL Mean Platelet Volume 9.5 fL Neutrophils (%) (Auto) 65.3 % Lymphocytes (%) (Auto) 17.8 % Monocytes (%) (Auto) 11.0 % Eosinophils (%) (Auto) 5.5 % Basophils (%) (Auto) 0.2 % Neutrophils # (Auto) 3.08 K/uL Lymphocytes # (Auto) 0.84 K/uL Monocytes # (Auto) 0.52 K/uL Eosinophils # (Auto) 0.26 K/uL Basophils # (Auto) 0.01 K/uL RDW Standard Deviation 58.6 fL RDW Coefficient of Variation 16.7 % Immature Granulocyte % (Auto) 0.2 % Immature Granulocyte # (Auto) 0.01 K/uL Sodium Level 141 mmol/L Potassium Level 3.6 mmol/L Chloride Level 108 mmol/L Carbon Dioxide Level 25 mmol/L Anion Gap 8.0 mmol/L Blood Urea Nitrogen 14 mg/dl Creatinine 1.80 mg/dl Est Creatinine Clear Calc Drug Dose 40.1 ml/min Estimated GFR () 42.6 Estimated GFR (Non- 36.8 BUN/Creatinine Ratio 7.5 Random Glucose 90 mg/dl Calcium Level 9.3 mg/dl
[2017-06-15] MEDS ORDERED: IMDSR60 PO (11:25)
[2017-06-15] MEDS ORDERED: NRV5 PO (11:25)
--- NOTE | 2017-06-15 11:27 | Discharge Instructions ---
Discharge Instructions Date of Service Jun 15, 2017. Admission Reason for Admission: Chest Pain Discharge Discharge Diagnosis / Problem: chest pain Discharge Goals Goal(s): Decrease discomfort, Improve function Activity Recommendations Activity Limitations: resume your previous activity . Instructions / Follow-Up Instructions / Follow-Up FOLLOWUP WITH FAMILY DOCTOR ON Jun AT 10:45AM FOLLOWUP WITH CARDIOLOGY SCHEDULED FOLLOWUP WITH GI ONCE CARDIAC ISSUES RESOLVED. MEDICATION CHANGES: INCREASED IMDUR TO 60MG DAILY ADDED AMLODIPINE 2.5 MG DAILY. Current Hospital Diet Patient's current hospital diet: AHA Diet (Heart Healthy) Discharge Diet Recommended Diet: AHA Diet (Heart Healthy) Pending Studies Studies pending at discharge: no Medical Emergencies . Who to Call and When: Medical Emergencies: If at any time you feel your situation is an emergency, please call 911 immediately. . Non-Emergent Contact Non-Emergency issues call your: Primary Care Provider . . "Provider Documentation" section prepared by Ciro Kramer. . VTE Core Measure Inpt VTE Proph given/why not?: SCD's
[2017-06-15 11:35] VITALS: BP 104/65; PULSE 74; TEMP 37; O2SAT 99
[2017-06-15] MEDS ORDERED: AMLO2.5T PO (11:36)
[2017-06-15 11:40] VITALS: BP 104/65; PULSE 74; TEMP 37; O2SAT 99
[2017-06-15] MEDS: PANTOprazole INJ 40 MG in SYRINGE 0 ML IV SCH (11:58)
--- NOTE | 2017-06-15 17:45 | Progress Note ---
Internal Med Progress Note Date of Service: Jun 15, 2017. Provider Documentation: SUBJECTIVE: denies any chest pain or sob ambulated fine eating ok slept ok want to go home OBJECTIVE: Vital Signs-as noted below Exam: General-alert and oriented. Not in distress ENT-normal hearing Neck-no neck masses Lungs-cta b/l no wheezing bibasilar crackles present Heart-s1 and s2 heard regular rhythm, no murmurs Abdomen-soft bowel sounds present non tender distended Extremities no edema present no erythema Scrotal edema seen skin Bruise seen in right and left groin region Neuro-alert and oriented moves extremities Lab data as noted below. ASSESSMENT & PLAN: 72 year old male with history of CAD s/p FAM to the RCA, COPD, HTN, HLD, CKD presenting with chest pain x few days. CHEST PAIN, POSSIBLE ANGINA, DEMAND ISCHEMIA SECONDARY TO ANEMIA HISTORY OF CAD, S/P RCA DRUG ELUTING STENT, LAD STENOSIS - discharged from [facility] early this month, s/p Cardiac Cath, no stent placed on the LAD(was felt to not be hemodynamically significant by fractional flow reserve measurement of 0.85) , (+) inguinal hematoma Serial CE negative continue home meds aspirin, Plavix, Imdur, metoprolol and statin cardiology increased Imdur to 60mg daily and added Norvasc 2.5 mg daily medical management for now and plan for repeat cardiac cath for LAD lesions when his groins injury form cath heals. f/u with cardiology Acute blood loss anemia hb dropped to 9.6 from 13 post cath complication of groin hematoma. s/p two unit prbc hb 11.6 today stable EPISODE OF HYPOTENSION apparently was noted by EMS currently stable PERSISTENT NAUSEA/VOMITING, POOR ORAL INTAKE HISTORY OF DALE'S ESOPHAGUS, LARGE HIATAL HERNIA weight loss on clear liquid diet Protonix IV GI consulted-plan for egd after cardiac clearance s/p GI series- small hiatal hernia,duodenal diverticulum Cardiology recommends to wait for invasive GI workup until his LAD lesion is stented. INGUINAL HEMATOMA from Cardiac Cath 06/02/17 on Aspirin, Plavix, ultrasound today no pseudoaneurysm f.u with pcp and cardiology ALEXANDRE on 3 L nasal cannula at HS COPD stable on home bronchodilators CKD 3 last crea 2.1 cr>30 will f/u labs DVT PROPH SCDs in light of hematoma discharged home Vital Signs: Date Time Temp Pulse Resp B/P (MAP) Pulse Ox O2 Delivery O2 Flow Rate FiO2 06/15/17 12:00 Room Air 06/15/17 11:40 37.0 74 18 99 Room Air 06/15/17 11:35 37.0 74 18 104/65 (78) 99 06/15/17 08:00 Room Air 06/15/17 07:56 36.8 86 18 147/90 (109) 95 06/15/17 07:18 59 16 91 Room Air 06/15/17 04:35 36.8 52 22 138/77 (97) 95 Room Air 06/15/17 04:00 Room Air 06/15/17 00:02 Room Air 06/14/17 23:52 36.7 56 22 120/75 (90) 95 Room Air 06/14/17 20:00 Room Air 06/14/17 19:38 36.5 58 21 125/77 (93) 95 Room Air 06/14/17 19:04 64 16 92 Room Air Lab Results: Results Past 24 Hours Test 06/15/17 07:24 Range/Units White Blood Count 4.72 4.8-10.8 K/uL Red Blood Count 3.57 4.7-6.1 M/uL Hemoglobin 11.6 14.0-18.0 g/dL Hematocrit 34.1 42-52 % Mean Corpuscular Volume 95.5 80-100 fL Mean Corpuscular Hemoglobin 32.5 25-34 pg Mean Corpuscular Hemoglobin Concent 34.0 32-36 g/dl Platelet Count 181 130-400 K/uL Mean Platelet Volume 9.5 7.4-10.4 fL Neutrophils (%) (Auto) 65.3 % Lymphocytes (%) (Auto) 17.8 % Monocytes (%) (Auto) 11.0 % Eosinophils (%) (Auto) 5.5 % Basophils (%) (Auto) 0.2 % Neutrophils # (Auto) 3.08 1.4-6.5 K/uL Lymphocytes # (Auto) 0.84 1.2-3.4 K/uL Monocytes # (Auto) 0.52 0.11-0.59 K/uL Eosinophils # (Auto) 0.26 0-0.5 K/uL Basophils # (Auto) 0.01 0-0.2 K/uL RDW Standard Deviation 58.6 36.4-46.3 fL RDW Coefficient of Variation 16.7 11.5-14.5 % Immature Granulocyte % (Auto) 0.2 % Immature Granulocyte # (Auto) 0.01 0.00-0.02 K/uL Sodium Level 141 136-145 mmol/L Potassium Level 3.6 3.5-5.1 mmol/L Chloride Level 108 98-107 mmol/L Carbon Dioxide Level 25 21-32 mmol/L Anion Gap 8.0 3-11 mmol/L Blood Urea Nitrogen 14 7-18 mg/dl Creatinine 1.80 0.60-1.40 mg/dl Est Creatinine Clear Calc Drug Dose 40.1 ml/min Estimated GFR () 42.6 Estimated GFR (Non- 36.8 BUN/Creatinine Ratio 7.5 10-20 Random Glucose 90 70-99 mg/dl Calcium Level 9.3 8.5-10.1 mg/dl
--- NOTE | 2017-06-15 17:55 | Discharge Summary ---
Discharge Summary Date of Service Jun 15, 2017. Discharge Summary Admission Date: Jun 12, 2017 at 21:24 Discharge Date: Jun 15, 2017 Discharge Disposition: Home Principal Diagnosis: CHEST PAIN NAUSEA/WEIGHT LOSS Secondary Diagnoses/Problems: 1) Benign hypertension Status: Chronic (2) Chr Airway Obstruct Nec Permanent Comment: O2 2.5 L at [facility] Status: Chronic (3) Chronic kidney disease stage 3 Status: Chronic (4) Coronary artery disease Status: Chronic (5) Creatinine elevation Status: Resolved (6) Diverticulosis Colon (W/O Ment Of Hemorrhage) Status: Chronic (7) Gastroesophageal reflux disease Status: Chronic (8) [place] filter in place Status: Chronic (9) Hypertension Nos Status: Chronic (10) Ileus, postoperative Status: Resolved (11) Pneumonia, Organism Nos Status: Resolved (12) Recurrent genital herpes simplex Status: Chronic (13) Total replacement of hip Status: Resolved Procedures: CXR: No acute process. Mild cardia megaly. LEFT INGUINAL US: The left common femoral vein and artery are patent. No pseudoaneurysm identified. UPPER GI SERIES: 1. Small hiatal hernia with gastroesophageal reflux 2. Duodenal diverticulum 3. No esophageal or gastric masses identified Consultations: CARDIOLOGY GI Medication Reconciliation New Medications: Amlodipine (Norvasc) 2.5 Mg Tab 2.5 MG PO DAILY, #30 TAB 1 Refill Isosorbide Mononitrate (Isosorbide Mononitrate ER) 60 Mg Tab 60 MG PO QAM, #30 TAB 1 Refill Continued Medications: Acetaminophen W/ Codeine (Tylenol W/Codeine #3) 1 Tab Tab 1 TAB PO Q6H PRN for Pain, #12 Albuterol Sulf (Proventil 0.083% 2.5MG/3ML) 2.5 Mg/3 Ml Nebu 2.5 MG NEB HS PRN for SOB/Wheezing Allopurinol (Allopurinol) 100 Mg Tab 100 MG PO DAILY, #21 100MG DAILY FOR 1 WEEK, THEN 200MG DAILY FOR 1 WEEK, THEN 300MG DAILY. STARTED 05/25/17 Arformoterol Tartrate (Brovana) 15 Mcg/2 Ml Neb 15 MCG NEB BID MIX WITH BEDESONIDE Aspirin (Aspir-81) 81 Mg Tab 81 MG PO QAM Atorvastatin (Lipitor) 80 Mg Tab 80 MG PO QPM, TAB Azithromycin (Azithromycin) 1 Pkt Tab 1 DOSE PO UD PRN for COPD RESCUE, #6 Budesonide (Inhalation) (Pulmicort Respules 0.5MG/2ML) 0.5 Mg/2 Ml Yareli 2 ML NEB BID, EA Cholecalciferol (Vitamin D3) 2,000 Unit Cap 2000 INTER.UNIT PO QPM Clopidogrel Bisulfate (Clopidogrel) 75 Mg Tab 75 MG PO DAILY, #30 Cyanocobalamin (Cyanocobalamin) 1,000 Mcg/Ml Inj 1000 MCG IM MONTHLY Eucerin (Eucerin) Cre 1 APPLN TOP DAILY PRN for DRY SKIN Famotidine (Pepcid) 20 Mg Tab 20 MG PO DAILY, #30 TAB Ferrous Sulfate (Ferrous Sulfate) 325 Mg Tab 325 MG PO QPM Home O2 Therapy (Oxygen) Gas 3 LITERS NA HS Hydrocortisone Acetate (Rectal (Anusol-Hc) 25 Mg Sup 25 MG WI BID PRN for Hemorrhoids Ipratropium-Albuterol (Combivent Respimat) 1 Aer Aer 1 PUFF INH QID PRN for Cough/Wheezing Lorazepam (Lorazepam) 0.5 Mg Tab 0.5 MG PO TID PRN for Anxiety Metoprolol Tartrate (Lopressor) 25 Mg Tab 25 MG PO BID, #60 Multivitamin (Multivitamin) Tab 1 TAB PO DAILY Nitroglycerin (Nitrostat) 0.4 Mg Tab 0.4 MG UT PRN, BTL Omeprazole (Prilosec) 20 Mg Cap 20 MG PO BID Ondansetron Hcl (Zofran) 4 Mg Tab 4 MG PO TID PRN for Nausea, #30 TAB Pantoprazole Sodium (Protonix) 20 Mg Tab 20 MG PO DAILY, #30 Prednisone (Deltasone) 20 Mg Tab 20 MG PO UD PRN for COPD/Asthma Rescue Kit TAKE 2 TABLETS (40 MG) DAILY FOR 5 DAYS Sennosides-Docusate Sodium (Stool Softener Plus Laxat) 1 Tab Tab 1 TAB PO DAILY PRN for Constipation Triamcinolone Acet (Aristocort 0.1%) 90 Appln/30 Gm Cr 1 APPLN TOP UD PRN for Itching APPLY TWICE DAILY IF NEEDED FOR ITCHY LEGS Valacyclovir Hcl (Valtrex) 1 Gm Tab 1 GM PO DAILY Discontinued Medications: Isosorbide Mononitrate Ext Rel (Imdur Ext Rel) 30 Mg Tabcr 30 MG PO DAILY, #34 Admission Information HPI (per Admitting provider): 72 year old male with history of CAD s/p FAM to the RCA, COPD, HTN, HLD, CKD presenting with chest pain x few days. Patient follows with Dr. Casanova for Cardiology, and Dr. Jones for Primary Care. He has a history of CAD with RCA FAM placement last month and most recently was transferred to [place] on June 01, 2017 for unstable angina. Patient underwent a cardiac cath but the LAD lesion was felt to be a candidate for stenting. Patient developed a large hematoma on the right groin extending to his scrotum and hip region. He was discharged and advised to continue Aspirin and Plavix with close Hg monitoring. Patient reports that since discharge from [place], he has been having chest pain with minimal exertion relieved with nitro and rest. He also reports poor tolerance to PO intake, not able to keep food down except for soup, and has lost at least 10 lbs. He does have intermittent epigastric pain. 2 days ago, patient also noted chills but denies cough, headache, changes with urination or diarrhea. Today, patient was preparing food in the kitchen but suddenly developed central chest pain, pressure, reminiscent of his usual angina. He took a total of 3 nitro and 4 baby Aspirins before the pain subsided. Apparently, based on ER records, his BP was low at systolic 60s at the site and was given IV fluids. He was then brought to the ED. Patient arrived at the ER with bp of 102/64, HR 61. EKG did not show signs of acute ischemia. Troponin negative. On exam, patient seen resting in bed, not in distress. Denies having any active chest pain, dyspnea, abdominal pain,nausea. No other symptoms. Physical Exam (per Admitting): General Appearance: WD/WN, no apparent distress Head: normocephalic, atraumatic Eyes: normal inspection, EOMI, sclerae normal ENT: normal ENT inspection, hearing grossly normal, pharynx normal Neck: supple, no adenopathy, thyroid normal, no JVD, trachea midline Respiratory/Chest: chest non-tender, lungs clear, normal breath sounds, no respiratory distress, no accessory muscle use Cardiovascular: regular rate, rhythm, no edema, no JVD, no murmur Abdomen/GI: normal bowel sounds, non tender, soft, + pertinent finding ((+) area of hematoma on the right groin, scrotum, extending to the waist, left hip region, non tender/no warmth) Back: no CVA tenderness, + pertinent finding (hematoma on the left upper hip /flank region) Extremities/Musculoskelatal: normal inspection, no calf tenderness, no pedal edema, normal range of motion Neurologic/Psych: stone planer II-XII nml as tested, no motor/sensory deficits, alert , normal mood/affect, oriented x 3 Skin: normal color, warm/dry, no rash Lymphatic: no adenopathy Hospital Course 72 year old male with history of CAD s/p FAM to the RCA, COPD, HTN, HLD, CKD presenting with chest pain x few days. CHEST PAIN, POSSIBLE ANGINA, DEMAND ISCHEMIA SECONDARY TO ANEMIA HISTORY OF CAD, S/P RCA DRUG ELUTING STENT, LAD STENOSIS - discharged from [place] early this month, s/p Cardiac Cath, no stent placed on the LAD(was felt to not be hemodynamically significant by fractional flow reserve measurement of 0.85) , (+) inguinal hematoma Serial CE negative continue home meds aspirin, Plavix, Imdur, metoprolol and statin cardiology increased Imdur to 60mg daily and added Norvasc 2.5 mg daily medical management for now and plan for repeat cardiac cath for LAD lesions when his groins injury form cath heals. f/u with cardiology Acute blood loss anemia hb dropped to 9.6 from 13 post cath complication of groin hematoma. s/p two unit prbc hb 11.6 today stable EPISODE OF HYPOTENSION apparently was noted by EMS currently stable PERSISTENT NAUSEA/VOMITING, POOR ORAL INTAKE HISTORY OF DALE'S ESOPHAGUS, LARGE HIATAL HERNIA weight loss on clear liquid diet Protonix IV GI consulted-plan for egd after cardiac clearance s/p GI series- small hiatal hernia,duodenal diverticulum Cardiology recommends to wait for invasive GI workup until his LAD lesion is stented. INGUINAL HEMATOMA from Cardiac Cath 06/02/17 on Aspirin, Plavix, ultrasound today no pseudoaneurysm f.u with pcp and cardiology ALEXANDRE on 3 L nasal cannula at HS COPD stable on home bronchodilators CKD 3 last crea 2.1 cr>30 will f/u labs DVT PROPH SCDs in light of hematoma discharged home Total time spent on discharge = 35MINUTES This includes examination of the patient, discharge planning, medication reconciliation, and communication with other providers. Discharge Instructions Discharge Instructions Date of Service Jun 15, 2017. Admission Reason for Admission: Chest Pain Discharge Discharge Diagnosis / Problem: chest pain Discharge Goals Goal(s): Decrease discomfort, Improve function Activity Recommendations Activity Limitations: resume your previous activity . Instructions / Follow-Up Instructions / Follow-Up FOLLOWUP WITH FAMILY DOCTOR ON Jun AT 10:45AM FOLLOWUP WITH CARDIOLOGY SCHEDULED FOLLOWUP WITH GI ONCE CARDIAC ISSUES RESOLVED. MEDICATION CHANGES: INCREASED IMDUR TO 60MG DAILY ADDED AMLODIPINE 2.5 MG DAILY. Current Hospital Diet Patient's current hospital diet: AHA Diet (Heart Healthy) Discharge Diet Recommended Diet: AHA Diet (Heart Healthy) Pending Studies Studies pending at discharge: no Medical Emergencies . Who to Call and When: Medical Emergencies: If at any time you feel your situation is an emergency, please call 911 immediately. . Non-Emergent Contact Non-Emergency issues call your: Primary Care Provider . . "Provider Documentation" section prepared by Ciro Kramer. . VTE Core Measure Inpt VTE Proph given/why not?: SCD's
[2017-06-25] MEDS ORDERED: ALLO300T2 PO (07:00)
[2017-06-25] MEDS ORDERED: DOCU100C PO (07:00)
[2017-06-25] MEDS ORDERED: ASPCH81X PO (07:03)
[2017-06-25] MEDS ORDERED: MICO12CR TOP (07:03)
[2017-06-26] MEDS ORDERED: ZTHM250 PO (13:25)
== END 2017-06-15 13:10 | disposition home or self-care (01) | DRG 303 ==
LOC: EDBD 16:17 → C.EDB 16:19 → ENRESERV 20:27 → C.2T 21:24
PROVIDERS: ADMIT Internal Medicine; ATTEND Internal Medicine
DX: I25.110 Atherosclerotic heart disease of native coronary artery with unstable angina pectoris (principal); N17.9 Acute kidney failure, unspecified; I24.8 Other forms of acute ischemic heart disease; D62 Acute posthemorrhagic anemia; L76.32 Postprocedural hematoma of skin and subcutaneous tissue following other procedure; N18.3 Chronic kidney disease, stage 3 (moderate); G47.33 Obstructive sleep apnea (adult) (pediatric); K21.9 Gastro-esophageal reflux disease without esophagitis; E78.5 Hyperlipidemia, unspecified; I95.9 Hypotension, unspecified; R63.4 Abnormal weight loss; I13.10 Hypertensive heart and chronic kidney disease without heart failure, with stage 1 through stage 4 chronic kidney disease, or unspecified chronic kidney disease; R68.83 Chills (without fever); G62.9 Polyneuropathy, unspecified; K44.9 Diaphragmatic hernia without obstruction or gangrene; Z96.643 Presence of artificial hip joint, bilateral; Z96.611 Presence of right artificial shoulder joint; Z96.612 Presence of left artificial shoulder joint; A60.00 Herpesviral infection of urogenital system, unspecified; K57.30 Diverticulosis of large intestine without perforation or abscess without bleeding; R63.8 Other symptoms and signs concerning food and fluid intake; K22.70 Barrett's esophagus without dysplasia; Z87.891 Personal history of nicotine dependence; Z95.5 Presence of coronary angioplasty implant and graft; Z95.828 Presence of other vascular implants and grafts; Z86.79 Personal history of other diseases of the circulatory system; Z53.8 Procedure and treatment not carried out for other reasons; Y84.8 Other medical procedures as the cause of abnormal reaction of the patient, or of later complication, without mention of misadventure at the time of the procedure; Y71.0 Diagnostic and monitoring cardiovascular devices associated with adverse incidents; Y92.239 Unspecified place in hospital as the place of occurrence of the external cause; Z79.899 Other long term (current) drug therapy; Z79.82 Long term (current) use of aspirin; Z79.52 Long term (current) use of systemic steroids; Z79.02 Long term (current) use of antithrombotics/antiplatelets; Z99.81 Dependence on supplemental oxygen; Z79.51 Long term (current) use of inhaled steroids; Z79.891 Long term (current) use of opiate analgesic; R07.2 Precordial pain; I12.9 Hypertensive chronic kidney disease with stage 1 through stage 4 chronic kidney disease, or unspecified chronic kidney disease; J44.9 Chronic obstructive pulmonary disease, unspecified; K57.90 Diverticulosis of intestine, part unspecified, without perforation or abscess without bleeding; Z87.01 Personal history of pneumonia (recurrent); Z85.46 Personal history of malignant neoplasm of prostate; Z80.9 Family history of malignant neoplasm, unspecified; Z82.49 Family history of ischemic heart disease and other diseases of the circulatory system; Z84.1 Family history of disorders of kidney and ureter

== ENCOUNTER 2017-08-19 05:44 | Observation (INO) | payer OTHER, MEDICARE ==
[2017-08-19] VITALS (10 sets, daily range): BP systolic 83–158; BP diastolic 31–101; PULSE 60–83; TEMP 36.4–36.8; O2SAT 90–96; Ht 170.2 cm; Wt 100.3 kg
[~2017-08-19] VITALS: Ht 170.2 cm; Wt 100.3 kg
[~2017-08-19 05:44] MED LIST changes: -ACET-1101 PO; -ALL100 PO; +ALLO300T2 PO; +AMLO2.5T PO; +ASPCH81X PO; +AZIT-57 PO; +DOCU100C PO; +IMDSR60 PO; -ISOS30TA35 PO; +MICO12CR TOP; -OXYB5TAB74 PO; +PANT20TA2 PO; -PREG100C PO; -SENNTAB13 PO; -SKINCRE34 TOP; -TRMCR130WC TOP; -VALA1TAB2 PO
[2017-08-19] MEDS ORDERED: GELATIN SPONGE 12-7MM ONE (06:02)
[2017-08-19] MEDS ORDERED: GELATIN SPONGE 12-7MM EXT ONE (06:15)
[2017-08-19] MEDS ORDERED: ALBUT/IPRATROP 3MG/0.5MG NEB 3 ML VIAL INH STA (06:25)
[2017-08-19 07:02] LABS: BASO % 0.3 %; BASO ABS # 0.02 K/uL (0-0.2); COMPLETE YES; EOS % 2.4 %; HEMATOCRIT 37.3 % (42-52); IG% 0.3 %; LYMPH % 18.8 %; MEAN CELL VOLUME 99.5 fL (80-100); MEAN CORPUSCULAR HEMOGLOBIN 33.3 pg (25-34); MEAN CORPUSCULAR HGB CONC 33.5 g/dl (32-36); MEAN PLATELET VOLUME 10.1 fL (7.4-10.4); MONO % 10.3 %; NEUT % 67.9 %; PLATELET COUNT 180 K/uL (130-400); RED BLOOD COUNT 3.75 M/uL (4.7-6.1); WHITE BLOOD COUNT 6.38 K/uL (4.8-10.8)
[2017-08-19 07:18] LABS: POTASSIUM 3.9 mmol/L (3.5-5.1)
[2017-08-19 07:19] LABS: CREATININE 2.32 mg/dl (0.60-1.40)
[2017-08-19] MEDS ORDERED: AZIT250T PO (07:20)
[2017-08-19] MEDS ORDERED: DTR5 PO (07:20)
[2017-08-19] MEDS ORDERED: MULT-845 PO (07:20)
[2017-08-19] MEDS ORDERED: LYR100 PO (07:20)
--- NOTE | 2017-08-19 07:22 | EMERGENCY ROOM VISIT NOTE ---
ED Visit Note First contact with patient: 06:42 I have personally seen and evaluated the patient with the PA. I agree with the diagnosis and management decisions and have been personally involved in the case. Please see Lorena Hickman PA-C's notes for further details of the history, physical and visit.
--- NOTE | 2017-08-19 07:22 | EMERGENCY ROOM VISIT NOTE ---
History First contact with patient: 06:01 Chief Complaint: LACERATION/CUT (SUT/DERMABOND) Stated Complaint: CUT ON FOOT Nursing Triage Summary: pt states a couple weeks ago was trimming toenails and cut tip of toe and the tip of it turned black and has left it go and it was a blood blister that he rubbed off last night and can't get it to stop is on blood thinners d/t heart cath last week History of Present Illness The patient is a 72 year old male who presents to the Emergency Room with complaints of increasing shortness breath for the past few weeks has had a recent stent placement last week at [place]. Patient sees Dr. Casanova. He has a history of heart disease. He quit smoking in the past. Patient was a cough. Patient also complains of bleeding from his right foot second toe after accidentally rupturing blister that was there. Patient denies chest pain, fevers, abdominal pain, leg swelling, history of heart failure, history of blood clots, headache, neck pain, back pain. He is tolerating by mouth fluids and food. Tetanus is current. Patient had a stent placed in a 05/22 and 08/14 at [place]. Review of Systems See HPI for pertinent positives & negatives. A total of 10 systems reviewed and were otherwise negative. Past Medical/Surgical History Medical Problems: (1) Aortic aneurysm (2) Benign hypertension (3) Cellulitis (4) Chr Airway Obstruct Nec (5) Chronic kidney disease stage 3 (6) COPD (chronic obstructive pulmonary disease) (7) Coronary artery disease (8) Creatinine elevation (9) Diverticulosis Colon (W/O Ment Of Hemorrhage) (10) Gastroesophageal reflux disease (11) [place] filter in place (12) Hypertension Nos (13) Ileus, postoperative (14) Pneumonia, Organism Nos (15) Prostate cancer (16) Recurrent genital herpes simplex (17) Total replacement of hip (18) Unstable angina Surgical Problems: (1) History of lumbar surgery (2) History of right shoulder replacement (3) History of temporomandibular joint syndrome (4) Hx of transurethral resection of prostate Family History Cancer Heart disease Kidney disease Social History Smoking Status: Former Smoker Alcohol Use: none Drug Use: none Marital Status: Housing Status: lives with significant other Occupation Status: retired Current/Historical Medications Scheduled Albuterol Sulf (Proventil 0.083% 2.5MG/3ML), 2.5 MG NEB DAILY Allopurinol (Zyloprim), 300 MG PO DAILY Amlodipine (Norvasc), 2.5 MG PO DAILY Arformoterol Tartrate (Brovana), 15 MCG NEB BID Aspirin (Aspir-81), 81 MG PO QAM Atorvastatin (Lipitor), 80 MG PO QPM Azithromycin (Azithromycin), 250 MG PO QAM Budesonide (Inhalation) (Pulmicort Respules 0.5MG/2ML), 2 ML NEB BID Cholecalciferol (Vitamin D3), 2,000 INTER.UNIT PO QPM Clopidogrel Bisulfate (Clopidogrel), 75 MG PO DAILY Cyanocobalamin (Cyanocobalamin), 1,000 MCG IM MONTHLY Docusate Sodium (Stool Softener), 100 MG PO BID Famotidine (Pepcid), 20 MG PO DAILY Ferrous Sulfate (Ferrous Sulfate), 325 MG PO QPM Home O2 Therapy (Oxygen), 3 LITERS NA HS Isosorbide Mononitrate (Isosorbide Mononitrate ER), 60 MG PO QAM Metoprolol Tartrate (Lopressor), 25 MG PO BID Multivitamin (Multivitamin), 1 TAB PO DAILY Omeprazole (Prilosec), 20 MG PO BID Pantoprazole Sodium (Protonix), 20 MG PO BID Scheduled PRN Aspirin (Aspirin Chewable), 81 MG PO UD PRN for RESCUE Azithromycin (Azithromycin), 1 DOSE PO UD PRN for COPD RESCUE Hydrocortisone Acetate (Rectal (Anusol-Hc), 25 MG ME BID PRN for Hemorrhoids Ipratropium-Albuterol (Combivent Respimat), 1 PUFF INH QID PRN for Cough/ Wheezing Lorazepam (Lorazepam), 0.5 MG PO TID PRN for Anxiety Miconazole Nitrate (Topical) (Antifungal), 1 DOSE TOP BID PRN for SKIN IRRITATION Nitroglycerin (Nitrostat), 0.4 MG UT UD PRN for Chest Pain Ondansetron Hcl (Zofran), 4 MG PO TID PRN for Nausea Prednisone (Deltasone), 20 MG PO UD PRN for COPD/Asthma Rescue Kit Physical Exam Vital Signs Date Time Temp Pulse Resp B/P (MAP) Pulse Ox O2 Delivery O2 Flow Rate FiO2 08/19/17 06:54 68 18 131/80 93 Room Air 11/18/17 06:43 66 08/19/17 06:40 Room Air 08/19/17 06:40 Room Air 08/19/17 05:52 36.6 75 18 129/76 94 Room Air Physical Exam VITALS: Vitals are noted on the nurse's note and reviewed by myself. Vital signs stable. GENERAL: White male, in no acute distress, nondiaphoretic, well-developed well- nourished. SKIN: Right foot second toe distal aspect with skin avulsion with bleeding without signs of infection The rest of the skin was without rashes, erythema, edema. There is no tenting of the skin. Capillary reflex less than 2 seconds. HEAD: Normocephalic atraumatic. EARS: External auditory canals clear, tympanic membranes pearly bains without erythema or effusion bilaterally. EYES: Pupils equal round and reactive to light and accommodation. Conjunctivae without injection, sclerae without icterus. Extraocular movements intact. NOSE: Patent, turbinates without inflammation or discharge. No sinus tenderness. MOUTH: Mucous membranes moist. Tonsils are not enlarged. Pharynx without erythema or exudate. Uvula midline. Airway patent. Tongue does not deviate. NECK: Supple without nuchal rigidity. No lymphadenopathy. No thyromegaly. Cervical spine is nontender. No JVD. HEART: Regular rate and rhythm LUNGS: Mild diffuse end and expiratory wheezes, No dullness to percussion. No retractions or accessory muscle use. ABDOMEN: Positive bowel sounds x 4. Normal tympanic percussion. Soft, nontender, without masses or organomegaly. Delgado sign negative. No guarding or rebound tenderness. MUSCULOSKELETAL: No muscle atrophy, erythema, or edema noted. Right foot and toes nontender to palpation without deformity. Pedal pulses +2 equal present bilaterally. NEURO: Patient was alert and oriented to person place and time. Normal sensation to light and sharp touch. No focal neurological deficits. Medical Decision & Procedures Laboratory Results 08/19/17 06:40 Red Blood Count 3.75, Mean Corpuscular Volume 99.5, Mean Corpuscular Hemoglobin 33.3, Mean Corpuscular Hemoglobin Concent 33.5, Mean Platelet Volume 10.1, Neutrophils (%) (Auto) 67.9, Lymphocytes (%) (Auto) 18.8, Monocytes (%) (Auto) 10.3, Eosinophils (%) (Auto) 2.4, Basophils (%) (Auto) 0.3, Neutrophils # (Auto ) 4.33, Lymphocytes # (Auto) 1.20, Monocytes # (Auto) 0.66, Eosinophils # (Auto ) 0.15, Basophils # (Auto) 0.02 08/19/17 06:40 Test 08/19/17 06:40 08/19/17 06:45 White Blood Count 6.38 K/uL (4.8-10.8) Red Blood Count 3.75 M/uL (4.7-6.1) Hemoglobin 12.5 g/dL (14.0-18.0) Hematocrit 37.3 % (42-52) Mean Corpuscular Volume 99.5 fL (80-100) Mean Corpuscular Hemoglobin 33.3 pg (25-34) Mean Corpuscular Hemoglobin Concent 33.5 g/dl (32-36) Platelet Count 180 K/uL (130-400) Mean Platelet Volume 10.1 fL (7.4-10.4) Neutrophils (%) (Auto) 67.9 % Lymphocytes (%) (Auto) 18.8 % Monocytes (%) (Auto) 10.3 % Eosinophils (%) (Auto) 2.4 % Basophils (%) (Auto) 0.3 % Neutrophils # (Auto) 4.33 K/uL (1.4-6.5) Lymphocytes # (Auto) 1.20 K/uL (1.2-3.4) Monocytes # (Auto) 0.66 K/uL (0.11-0.59) Eosinophils # (Auto) 0.15 K/uL (0-0.5) Basophils # (Auto) 0.02 K/uL (0-0.2) RDW Standard Deviation 54.0 fL (36.4-46.3) RDW Coefficient of Variation 15.0 % (11.5-14.5) Immature Granulocyte % (Auto) 0.3 % Immature Granulocyte # (Auto) 0.02 K/uL (0.00-0.02) Anion Gap 9.0 mmol/L (3-11) Est Creatinine Clear Calc Drug Dose 32.3 ml/min Estimated GFR () 31.4 Estimated GFR (Non- 27.1 BUN/Creatinine Ratio 9.0 (10-20) Calcium Level 9.0 mg/dl (8.5-10.1) Direct Bilirubin 0.2 mg/dl (0-0.2) Aspartate Amino Transf (AST/SGOT) 19 U/L (15-37) Alanine Aminotransferase (ALT/SGPT) 23 U/L (12-78) Albumin 3.9 gm/dl (3.4-5.0) Lipase 152 U/L (73-393) Bedside Troponin I 0.050 ng/ml (0-0.045) Medications Administered Medications (Trade) Dose Ordered Sig/Chata Route Start Time Stop Time Status Last Admin Dose Admin Gelatin (Surgifoam Sponge 12-7MM (SMALL)) 1 ea NOW ONCE EXT 08/19/17 06:15 08/19/17 06:16 DC 08/19/17 06:13 1 EA Gelatin (Surgifoam Sponge 12-7MM (SMALL)) 1 ea STK-MED ONCE .ROUTE 08/19/17 06:02 08/19/17 06:03 DC 08/19/17 06:12 1 EA Albuterol/ Ipratropium (Duoneb) 3 ml NOW STAT INH 08/19/17 06:25 08/19/17 06:27 DC 08/19/17 06:35 3 ML ED Course Prior records/ancillary studies reviewed. Triage Nursing notes reviewed. The patient's history was concerning for respiratory difficulties and wound to toe. Differential diagnosis: Etiologies such as infections, reactive airway disease, pneumonia, pneumothorax , COPD, CHF, cardiac ischemia, pulmonary embolism, musculoskeletal, gastrointestinal, as well as others were entertained. Physical examination: As above. ER treatment provided: Nebulizer, wound care to toe. The toe was cleansed and Gelfoam was placed. Bandage was then placed and hemostasis was achieved. On reassessment the patient felt better. Diagnostic interpretation by me: The electrocardiogram was normal sinus, first degree AV block, no acute ST-T wave changes, rate of 67. Impression normal sinus rhythm with a first degree AV block interpreted by myself The labs revealed trop 0.05, Cr 2.5 Imaging studies: Chest x-ray with no acute consolidation, pneumothorax or free air per my interpretation Consultation: A consultation was placed with the [facility] hospitalist. The case was discussed and diagnostics were reviewed. The patient was evaluated in the ER for further treatment. This appears to be consistent with elevated troponin and elevated creatinine with recent stent placement. Patient had no chest pain. No acute findings on EKG.. He will be evaluated by medicine. By the evaluation outlined above emergent etiologies such as CHF, pneumonia, pneumothorax, musculoskeletal, serious bacterial infections, as well as others were deemed relatively unlikely. The pt informed about the findings as listed above. All questions were answered and pleased with the treatment. Case reviewed with my attending Medical Decision As above Medication Reconcilliation Current Medication List: was personally reviewed by me Blood Pressure Screening Patient's blood pressure: Normal blood pressure Impression Primary Impression: COPD exacerbation Additional Impressions: Avulsion of skin of toe Elevated troponin Departure Information Dispostion Being Evaluated By Hospitalist Condition FAIR Referrals Jacob Jones MD (PCP) Patient Instructions My [facility] Problem Qualifiers Additional Impressions: Avulsion of skin of toe Encounter type: initial encounter Qualified Codes: S91.109A - Unspecified open wound of unspecified toe(s) without damage to nail, initial encounter
--- NOTE | 2017-08-19 07:42 | DIAGNOSTIC IMAGING REPORT ---
CHEST ONE VIEW PORTABLE HISTORY: Atypical CHEST PAIN COMPARISON: Chest 06/25/2017. FINDINGS: No focal lung consolidations to suggest pneumonia. No pleural effusions. No pneumothorax. Bibasilar linear densities persist. The heart remains borderline enlarged. Right shoulder prosthesis. There is also a partially visualized left shoulder prosthesis. Tortuous thoracic aorta, unchanged. IMPRESSION: No significant change compared to the prior study. No acute process. Bibasilar linear densities favor atelectasis or scarring. Electronically signed by: Geovani Turner M.D. 08/19/2017 7:41 AM Dictated Date/Time: 08/19/2017 7:39 AM
[2017-08-19] MEDS ORDERED: LORAZEPAM 0.5 MG TAB PO PRN (08:45)
[2017-08-19] MEDS ORDERED: LEVOFLOXACIN CONSULT ACTIVE PRN (08:52)
[2017-08-19] MEDS: LEVALBUTEROL 1.25MG/0.5ML NEB INH SCH ×3 (09:00→19:05)
[2017-08-19] MEDS: IPRATROPIUM BROMIDE NEB SOLN 0.02% 2.5 ML VIAL INH SCH ×3 (09:00→19:05)
[2017-08-19] MEDS: ARFORMOTEROL TART 15MCG/2ML VIAL INH SCH ×2 (09:00→20:04)
[2017-08-19] MEDS ORDERED: LEVALBUTEROL/IPRATROPIUM NEB INH SCH (09:00)
[2017-08-19] MEDS: BUDESONIDE 0.5 MG/2 ML VIAL (PULMICORT) INH SCH ×2 (09:00→20:05)
[2017-08-19] MEDS ORDERED: SODIUM CHLORIDE 0.9% 1000ML 1,000 ML IV SCH (09:36)
[2017-08-19] MEDS ORDERED: ACETAMINOPHEN 325 MG TAB PO PRN (09:45)
[2017-08-19] MEDS ORDERED: NITROGLYCERIN 0.4 MG SL PER TAB CHARGE SL PRN (09:45)
[2017-08-19] MEDS ORDERED: ONDANSETRON INJ 2 MG/ML 2 ML VIAL IV PRN (09:45)
--- NOTE | 2017-08-19 09:46 | History and Physical ---
History & Physical Date & Time of Service: Aug 19, 2017 at 09:31 Chief Complaint: Cut On Foot Primary Care Physician: Jacob Jones MD History of Present Illness Source: patient, clinic records, hospital records 72 year old male with history of COPD, CAD s/p recent LAD Drug Eluting Stent Placement 08/14/17 at [facility], HTN, CKD 3, other problems below presenting with shortness of breath and dizziness. Patient underwent a Cardiac Cath with LED FAM placement last 08/14/17 at [facility]. Upon returning home, patient noted increasing dyspnea on exertion and dizziness/ lightheadedness. Also reports increasing cough with yellow sputum, but no fever. He developed a blister on his 3rd toe, right foot about 2 weeks ago after cutting his toenail. Last night, patient noted bleeding from the blister which he cannot control with pressure for about 5 hours. He then presented to the ED. At the ER, patient was noted to be wheezing and was given Duoneb with improvement of symptoms. EKG with no acute changes, Trop 0.05. On exam, patient feels improved compared to arrival. Denies active dyspnea, chest pain, dizziness, palpitations. The bleeding on the toe has stopped since placement of foam/dressing. No other symptoms. Past Medical/Surgical History Medical Problems: (1) Benign hypertension Status: Chronic (2) Chr Airway Obstruct Nec Permanent Comment: O2 2.5 L at [facility] Status: Chronic (3) Chronic kidney disease stage 3 Status: Chronic (4) Coronary artery disease Status: Chronic (5) Creatinine elevation Status: Resolved (6) Diverticulosis Colon (W/O Ment Of Hemorrhage) Status: Chronic (7) Gastroesophageal reflux disease Status: Chronic (8) [place] filter in place Status: Chronic (9) Hypertension Nos Status: Chronic (10) Ileus, postoperative Status: Resolved (11) Pneumonia, Organism Nos Status: Resolved (12) Recurrent genital herpes simplex Status: Chronic (13) Total replacement of hip Status: Resolved Surgical Problems: (1) History of lumbar surgery Status: Resolved (2) History of right shoulder replacement Status: Resolved (3) History of temporomandibular joint syndrome Status: Resolved (4) Hx of transurethral resection of prostate Status: Resolved Family History Cancer Heart disease Kidney disease Social History Smoking Status: Former Smoker Drug Use: none Marital Status: Occupational Status: retired Immunizations History of Influenza Vaccine: Yes Influenza Vaccine Date: Jun 28, 2011 History of Tetanus Vaccine?: Unknown History of Pneumococcal: Yes Pneumococcal Date: Sep 10, 2010 History of Hepatitis B Vaccine: Yes Allergies Coded Allergies: Benzocaine (Verified Allergy, Severe, SLOUGHING OF SKIN, 08/19/17) Clindamycin (Verified Allergy, Intermediate, RASH, 08/19/17) Clobetasol (Verified Allergy, Unknown, ITCHING, 08/19/17) Doxycycline (Verified Allergy, Unknown, RASH, 08/19/17) Penicillins (Verified Allergy, Unknown, HIVES, 08/19/17) Phenylethylamine (Verified Allergy, Unknown, ITCHING, 08/19/17) Tea Tree Oil (Verified Allergy, Unknown, ITCHING, 08/19/17) Home Medications Scheduled Albuterol Sulf (Proventil 0.083% 2.5MG/3ML), 2.5 MG NEB DAILY Allopurinol (Zyloprim), 300 MG PO DAILY Amlodipine (Norvasc), 2.5 MG PO DAILY Arformoterol Tartrate (Brovana), 15 MCG NEB BID Aspirin (Aspir-81), 81 MG PO QAM Atorvastatin (Lipitor), 80 MG PO QPM Budesonide (Inhalation) (Pulmicort Respules 0.5MG/2ML), 2 ML NEB BID Cholecalciferol (Vitamin D3), 2,000 INTER.UNIT PO QPM Clopidogrel Bisulfate (Clopidogrel), 75 MG PO DAILY Cyanocobalamin (Cyanocobalamin), 1,000 MCG IM MONTHLY Docusate Sodium (Stool Softener), 100 MG PO BID Famotidine (Pepcid), 20 MG PO DAILY Ferrous Sulfate (Ferrous Sulfate), 325 MG PO QPM Home O2 Therapy (Oxygen), 3 LITERS NA HS Isosorbide Mononitrate (Isosorbide Mononitrate ER), 60 MG PO QAM Metoprolol Tartrate (Lopressor), 25 MG PO BID Multiple Vitamins W/ Minerals (Centrum Silver Adult 50+), 1 TAB PO DAILY Oxybutynin Chloride (Oxybutynin Chloride), 5 MG PO BID Pantoprazole Sodium (Protonix), 20 MG PO BID Pregabalin (Lyrica), 100 MG PO BID Scheduled PRN Aspirin (Aspirin Chewable), 81 MG PO UD PRN for RESCUE Azithromycin (Zithromax), Unknown Dose PO DAILY PRN for RESCUE KIT Hydrocortisone Acetate (Rectal (Anusol-Hc), 25 MG MO BID PRN for Hemorrhoids Ipratropium-Albuterol (Combivent Respimat), 1 PUFF INH QID PRN for Cough/ Wheezing Lorazepam (Lorazepam), 0.5 MG PO TID PRN for Anxiety Miconazole Nitrate (Topical) (Antifungal), 1 DOSE TOP BID PRN for SKIN IRRITATION Nitroglycerin (Nitrostat), 0.4 MG UT UD PRN for Chest Pain Ondansetron Hcl (Zofran), 4 MG PO TID PRN for Nausea Prednisone (Deltasone), 20 MG PO UD PRN for COPD/Asthma Rescue Kit Review of Systems Constitutional- no fever; no weight loss Eyes- no acute visual changes ENT- no sinus drainage; no pharyngitis Pulmonary- (+) as noted above Cardiac- no chest pain, no palpitations, no orthopnea, no dependent edema GI- no nausea, no vomiting, no diarrhea, no melena, no hematochezia - no dysuria, no hematuria Musculoskeletal- no arthralgias, no myalgias Derm- no rashes, no new skin lesions, no changing skin lesions Hematologic- no unusual bruising, no unusual bleeding Lymphatics- no adenopathy Endocrine- no polyuria or polydipsia; no heat or cold intolerance Neuro- no headaches, no focal neurologic symptoms Psych- no anxiety, no depression Physical Exam Vital Signs Date Time Temp Pulse Resp B/P (MAP) Pulse Ox O2 Delivery O2 Flow Rate FiO2 08/19/17 09:03 66 18 142/92 93 08/19/17 08:03 63 18 145/93 94 Room Air 08/19/17 06:54 68 18 131/80 93 Room Air 08/19/17 06:43 66 08/19/17 06:40 Room Air 08/19/17 06:40 Room Air 08/19/17 05:52 36.6 75 18 129/76 94 Room Air General Appearance: WD/WN, no apparent distress Head: normocephalic, atraumatic Eyes: normal inspection, PERRL, EOMI, sclerae normal ENT: normal ENT inspection, hearing grossly normal, pharynx normal Neck: supple, no adenopathy, thyroid normal, no JVD, trachea midline Respiratory/Chest: chest non-tender, lungs clear, + wheezing (mild, at the bases, bilaterally) Cardiovascular: regular rate, rhythm, no edema, no JVD, no murmur, normal peripheral pulses Abdomen/GI: normal bowel sounds, non tender, soft Back: normal inspection, no CVA tenderness Extremities/Musculoskelatal: normal inspection, no calf tenderness, normal capillary refill, no pedal edema, normal range of motion, pelvis stable, + pertinent finding (3rd toe right foot: small healing wound at the tip, no active bleeding) Neurologic/Psych: genetic coordinator II-XII nml as tested, no motor/sensory deficits, alert, normal mood/affect, normal reflexes, oriented x 3 Skin: normal color, warm/dry, no rash Lymphatic: no adenopathy Diagnostics Laboratory Results Results Past 24 Hours Test 08/19/17 06:40 08/19/17 06:45 Range/Units White Blood Count 6.38 4.8-10.8 K/uL Red Blood Count 3.75 4.7-6.1 M/uL Hemoglobin 12.5 14.0-18.0 g/dL Hematocrit 37.3 42-52 % Mean Corpuscular Volume 99.5 80-100 fL Mean Corpuscular Hemoglobin 33.3 25-34 pg Mean Corpuscular Hemoglobin Concent 33.5 32-36 g/dl Platelet Count 180 130-400 K/uL Mean Platelet Volume 10.1 7.4-10.4 fL Neutrophils (%) (Auto) 67.9 % Lymphocytes (%) (Auto) 18.8 % Monocytes (%) (Auto) 10.3 % Eosinophils (%) (Auto) 2.4 % Basophils (%) (Auto) 0.3 % Neutrophils # (Auto) 4.33 1.4-6.5 K/uL Lymphocytes # (Auto) 1.20 1.2-3.4 K/uL Monocytes # (Auto) 0.66 0.11-0.59 K/uL Eosinophils # (Auto) 0.15 0-0.5 K/uL Basophils # (Auto) 0.02 0-0.2 K/uL RDW Standard Deviation 54.0 36.4-46.3 fL RDW Coefficient of Variation 15.0 11.5-14.5 % Immature Granulocyte % (Auto) 0.3 % Immature Granulocyte # (Auto) 0.02 0.00-0.02 K/uL Sodium Level 139 136-145 mmol/L Potassium Level 3.9 3.5-5.1 mmol/L Chloride Level 106 98-107 mmol/L Carbon Dioxide Level 24 21-32 mmol/L Anion Gap 9.0 3-11 mmol/L Blood Urea Nitrogen 21 7-18 mg/dl Creatinine 2.32 0.60-1.40 mg/dl Est Creatinine Clear Calc Drug Dose 32.3 ml/min Estimated GFR () 31.4 Estimated GFR (Non- 27.1 BUN/Creatinine Ratio 9.0 10-20 Random Glucose 104 70-99 mg/dl Calcium Level 9.0 8.5-10.1 mg/dl Total Bilirubin 0.5 0.2-1 mg/dl Direct Bilirubin 0.2 0-0.2 mg/dl Aspartate Amino Transf (AST/SGOT) 19 15-37 U/L Alanine Aminotransferase (ALT/SGPT) 23 12-78 U/L Alkaline Phosphatase 119 45-117 U/L Troponin I 0.046 0-0.045 ng/ml Pro-B-Type Natriuretic Peptide 247 0-900 pg/ml Total Protein 7.9 6.4-8.2 gm/dl Albumin 3.9 3.4-5.0 gm/dl Lipase 152 73-393 U/L Bedside Troponin I 0.050 0-0.045 ng/ml Diagnostic Radiology CXR: IMPRESSION: No significant change compared to the prior study. No acute process. Bibasilar linear densities favor atelectasis or scarring. EKG HR 67, regular rhythm, no signs of acute ischemia Impression Assessment and Plan 72 year old male with history of COPD, CAD s/p recent LAD Drug Eluting Stent Placement 08/14/17 at [facility], HTN, CKD 3, other problems below presenting with shortness of breath and dizziness. SHORTNESS OF BREATH MILD COPD EXACERBATION, ACUTE BRONCHITIS - CXR: no pneumonia - Prednisone 40mg, then taper Nebs q6h Levaquin PO daily DIZZINESS S/P STENT PLACEMENT, LAD 08/14/17 - check Orthostatic VS - hold Amlodipine for today - check Echo - Dr. Francois consulted MILD TROPONIN ELEVATION - denies chest pain, no acute EKG changes - check Echo - continue ASA, Plavix, Metoprolol, Imdur RIGHT TOE BLEEDING - controlled with pressure monitor RIGHT ELBOW FRACTURE - follows with Ortho in [place] [place] - continue Arm Sling will follow up with Ortho in 1 week HTN - r/o Orthostasis - continue Metoprolol, Imdur hold Amlodipine monitor CKD 3 - crea 2.32, usually 1.8-2 - IV fluids DVT PROPH - SCDs for now FULL CODE DISPOSITION - anticipate d/c home when medically stable - ff up: PCP Cardio Ortho VTE Prophylaxis VTE Risk Assessment Done? Y/N: Yes Risk Level: Moderate Given or contraindicated: SCD's
[2017-08-19] MEDS ORDERED: LEVOFLOXACIN 500MG / D5W IV ONE (10:00)
[2017-08-19] MEDS: ALLOPURINOL 300 MG TAB PO SCH (10:11)
[2017-08-19] MEDS: METOPROLOL TARTRATE 25 MG TAB PO SCH ×2 (10:12→21:45)
[2017-08-19] MEDS: ISOSORBIDE MONONITRATE 60 MG TABCR PO SCH (10:12)
[2017-08-19] MEDS: OXYBUTYNIN CHLORIDE 5 MG TAB PO SCH ×2 (10:13→20:28)
[2017-08-19] MEDS: PANTOprazole SOD 40 MG TAB PO SCH ×2 (10:13→20:31)
[2017-08-19] MEDS: FAMOTIDINE 20 MG TAB PO SCH (10:14)
[2017-08-19] MEDS: DOCUSATE SODIUM 100 MG CAP PO SCH ×2 (10:14→20:32)
[2017-08-19] MEDS: ASPIRIN 81 MG ECTAB PO SCH (10:15)
[2017-08-19] MEDS: CLOPIDOGREL BISULFATE 75 MG TAB PO SCH (10:15)
[2017-08-19] MEDS: PREGABALIN 100 MG CAP PO SCH ×2 (10:46→20:35)
--- NOTE | 2017-08-19 12:40 | CARDIOLOGY CONSULTATION ---
DATE OF CONSULTATION: 08/19/2017 DATE OF CONSULTATION: 08/19/2017 [facility] REASON FOR CONSULTATION: Dizziness. HISTORY OF PRESENT ILLNESS: This is a 72-year-old male with history of severe COPD due to tobacco associated lung disease. He has a very complex recent past medical history with multiple hospital admissions both at [facility] and [facility]. Originally, in May he presented with chest pain and underwent a cardiac catheterization and was found to have complex coronary artery disease. He was sent to [facility] where he underwent rotational atherectomy and stent placement within the right coronary artery. He was noted angiographically to have a significant lesion in the LAD; however, FFR was negative at 0.85. The patient continued to have chest pain and was referred back to [facility] where he had repeat cardiac catheterization and attempt was made at placing a stent in the LAD but he developed a large groin hematoma on the left. On 08/14/2017 the patient did have a drug-eluting stent placed in his LAD at [facility]. He then returned home and unfortunately after returning home, he has had some dyspnea on exertion along with dizziness and lightheadedness. He states whenever he suraj forward and stands up he has some lightheadedness and has to sit down. He has had no chest pain. He has had a cough productive of yellow sputum. No fever or chills. Another incidental problem is that patient is cutting his own toenails and injured his third toe which resulted in some bleeding. After admission, his EKG shows no acute changes. His troponins are borderline elevated, most likely due to his chronic renal failure. He has no significant cardiac symptoms during my interview. ALLERGIES: BENZOCAINE, CLINDAMYCIN, CLOBETASOL, DOXYCYCLINE, PENICILLIN, PAST MEDICAL HISTORY: He has chronic stage III kidney disease based on renal vascular disease. He has severe COPD, most likely related to cigarette smoking. He is status post [place] filter placement. He has had multiple previous surgeries including total hip replacement and right shoulder replacement. He has had known coronary artery disease as described above. FAMILY MEDICAL HISTORY: Noncontributory. SOCIAL HISTORY: The patient is . He is retired and has a history of cigarette smoking. REVIEW OF SYSTEMS: A 10-point review of systems negative except for the history of chief complaint. PHYSICAL EXAMINATION: GENERAL: He is alert and oriented. No acute distress. VITAL SIGNS: Blood pressure is 140/90, pulse is regular 60 beats per minute. He is afebrile. HEAD, EYES, EARS, NOSE, AND THROAT: He is normocephalic. Pupils are equal and reactive to light. Extraocular muscles are intact bilaterally. NECK: The neck veins are flat. Carotids have good upstrokes bilaterally without bruits. Thyroid is nonpalpable. RESPIRATORY: Breath sounds equal bilaterally and clear to auscultation. CARDIOVASCULAR: Heart has a regular rhythm. Normal S1, S2. No S3, S4. No cardiac rubs or murmurs. GASTROINTESTINAL: Abdomen is soft, nontender without organomegaly. EXTREMITIES: Free of edema, digit clubbing, or cyanosis. NEUROLOGIC: Grossly intact. SKIN: Warm to touch. LYMPH NODES: Negative to palpation. LABORATORY DATA: Per the history of chief complaint. IMPRESSION: 1. Shortness of breath due to chronic obstructive pulmonary disease. 2. Dizziness. 3. Recent complex coronary history per the history of chief complaint. 4. Mildly elevated troponin of type 2 related to chronic renal failure. RECOMMENDATIONS: At this point, I would continue to drop cardiac markers. I do not believe that this is an acute coronary event. He probably most likely has chronic dizziness related to medications and a history of COPD with chronic bronchitis. HEIDI
[2017-08-19 13:54] LABS: CKMB/CK RATIO 1.2 (0-3.0)
[2017-08-19] MEDS ORDERED: IV FLUIDS COMPLETED PRN (14:30)
[2017-08-19 20:11] LABS: CKMB/CK RATIO 1.3 (0-3.0)
[2017-08-19] MEDS ORDERED: FERROUS SULFATE 325 MG TAB PO SCH (21:00)
[2017-08-19] MEDS ORDERED: ATORVASTATIN 40 MG TAB PO SCH (21:00)
[2017-08-19] MEDS ORDERED: SODIUM CHLORIDE 0.9% 1000ML 1,000 ML IV ONE (21:15)
[2017-08-20 04:00] VITALS: BP 129/86; PULSE 57; TEMP 36.3; O2SAT 94
[2017-08-20 07:12] VITALS: PULSE 67; O2SAT 94
[2017-08-20] MEDS: LEVALBUTEROL 1.25MG/0.5ML NEB INH SCH ×2 (07:12→14:23)
[2017-08-20] MEDS: IPRATROPIUM BROMIDE NEB SOLN 0.02% 2.5 ML VIAL INH SCH ×2 (07:12→14:23)
[2017-08-20] MEDS: BUDESONIDE 0.5 MG/2 ML VIAL (PULMICORT) INH SCH (07:12)
[2017-08-20] MEDS: ARFORMOTEROL TART 15MCG/2ML VIAL INH SCH (07:12)
[2017-08-20 07:42] LABS: BASO % 0.1 %; BASO ABS # 0.01 K/uL (0-0.2); COMPLETE YES; EOS % 0.7 %; HEMATOCRIT 34.9 % (42-52); IG% 0.3 %; LYMPH % 12.3 %; MEAN CELL VOLUME 99.1 fL (80-100); MEAN CORPUSCULAR HEMOGLOBIN 33.5 pg (25-34); MEAN CORPUSCULAR HGB CONC 33.8 g/dl (32-36); MEAN PLATELET VOLUME 10.1 fL (7.4-10.4); MONO % 11.3 %; NEUT % 75.3 %; PLATELET COUNT 178 K/uL (130-400); RED BLOOD COUNT 3.52 M/uL (4.7-6.1); WHITE BLOOD COUNT 8.96 K/uL (4.8-10.8)
[2017-08-20 08:10] LABS: BUN/CREATININE RATIO 10.9 (10-20); CALCIUM 9.5 mg/dl (8.5-10.1); CREATININE 1.96 mg/dl (0.60-1.40); POTASSIUM 4.1 mmol/L (3.5-5.1)
[2017-08-20 08:14] VITALS: BP 121/76; PULSE 56; TEMP 36.3; O2SAT 94
--- NOTE | 2017-08-20 08:22 | ECHOCARDIOGRAM REPORT ---
*NOTICE TO RECEIVING LIBERTARIAN AGENCY This information is strictly Confidential and protected under [place] law. [place] law prohibits you from making any further disclosure of this information unless further disclosure is expressly permitted by the written consent of the person to whom it pertains or is authorized by law. A general authorization for the release of medical or other information is not sufficient for this purpose. Hospital accepts no responsibility if the information is made available to any other person, INCLUDING THE PATIENT. Interpretation Summary * Name: JUAN TYSON Study Date: 08/19/2017 12:51 PM BP: 142/92 mmHg * Patient Location: C.2T\S\S241\S\2 HR: 66 * : 1945 (M/d/yyyy) Gender: Male Height: 67 in * Age: 72 yrs Ethnicity: CA Weight: 219 lb * Ordering Physician: Pedro Luis Crowell * Referring Physician: Layne Trent D.O. * Performed By: Alonso Sifuentes RDCS * * Reason For Study: SOB, S/P PTCA with stenting * BSA: 2.1 m2 * -- Conclusions -- * The left ventricle is normal in size. * Left ventricular systolic function is normal. * Ejection Fraction = 55-60%. * The right ventricular systolic function is normal. * The left atrial size is normal. * Right atrial size is normal. * Grade I diastolic dysfunction, (abnormal relaxation pattern). * No significant valvular pathology. Procedure Details * A complete two-dimensional transthoracic echocardiogram was performed (2D, M-mode, Doppler and color flow Doppler). * The study was technically adequate. Left Ventricle * The left ventricle is normal in size. * There is normal left ventricular wall thickness. * Left ventricular systolic function is normal. * Ejection Fraction = 55-60%. * The left ventricular wall motion is normal. Right Ventricle * The right ventricle is normal size. * The right ventricular systolic function is normal. Atria * The left atrial size is normal. * Right atrial size is normal. * The interatrial septum is intact with no evidence for an atrial septal defect. Mitral Valve * The mitral valve anatomy is normal. * Significant mitral regurgitation is absent. Tricuspid Valve * The tricuspid valve anatomy is normal. * Significant tricuspid regurgitation is absent. Aortic Valve * The aortic valve is tricuspid. The leaflet thickness if normal. There is no aortic stenosis, and no significant insufficiency. * The aortic valve opens well. * Trace aortic regurgitation. Pulmonic Valve * The pulmonic valve is not well seen, but is grossly normal. * There is no pulmonic valvular regurgitation. Great Vessels * The aortic root and proximal ascending aorta are normal sized. Pericardium/Pleural * There is no pericardial effusion. Left Ventricular Diastolic Function * Grade I diastolic dysfunction, (abnormal relaxation pattern). MMode 2D Measurements and Calculations IVSd 1.4 cm IVSs 1.8 cm LVIDd 4.6 cm LVIDs 3.3 cm LVPWd 1.4 cm LVPWs 1.8 cm IVS/LVPW 1.0 FS 27.9 % EDV(Teich) 95.4 ml ESV(Teich) 43.8 ml EF(Teich) 54.1 % EDV(cubed) 94.9 ml ESV(cubed) 35.6 ml EF(cubed) 62.5 % % IVS thick 32.1 % % LVPW thick 33.0 % LV mass(C)d 245.2 grams LV mass(C)dI 116.7 grams/m\S\2 LV mass(C)s 246.4 grams LV mass(C)sI 117.2 grams/m\S\2 SV(Teich) 51.7 ml SI(Teich) 24.6 ml/m\S\2 SV(cubed) 59.3 ml SI(cubed) 28.2 ml/m\S\2 Ao root diam 3.9 cm Ao root area 12.2 cm\S\2 LA dimension 3.4 cm asc Aorta Diam 3.9 cm LA/Ao 0.85 LVOT diam 2.0 cm LVOT area 3.1 cm\S\2 LVAd ap4 31.4 cm\S\2 LVLd ap4 8.3 cm EDV(MOD-sp4) 97.9 ml EDV(sp4-el) 101.3 ml LVAs ap4 19.1 cm\S\2 LVLs ap4 7.2 cm ESV(MOD-sp4) 44.4 ml ESV(sp4-el) 42.8 ml EF(MOD-sp4) 54.6 % EF(sp4-el) 57.8 % LVAd ap2 33.9 cm\S\2 LVLd ap2 8.6 cm EDV(MOD-sp2) 109.4 ml EDV(sp2-el) 113.2 ml LVAs ap2 20.1 cm\S\2 LVLs ap2 7.1 cm ESV(MOD-sp2) 48.0 ml ESV(sp2-el) 48.6 ml EF(MOD-sp2) 56.2 % EF(sp2-el) 57.1 % LVLd %diff 4.2 % EDV(MOD-bp) 104.4 ml LVLs %diff -1.90 % ESV(MOD-bp) 46.3 ml EF(MOD-bp) 55.6 % SV(MOD-sp4) 53.5 ml SI(MOD-sp4) 25.5 ml/m\S\2 SV(MOD-sp2) 61.5 ml SI(MOD-sp2) 29.2 ml/m\S\2 SV(MOD-bp) 58.1 ml SI(MOD-bp) 27.6 ml/m\S\2 SV(sp4-el) 58.6 ml SI(sp4-el) 27.9 ml/m\S\2 SV(sp2-el) 64.6 ml SI(sp2-el) 30.8 ml/m\S\2 Doppler Measurements and Calculations MV E max jhon 39.9 cm/sec MV A max jhon 72.3 cm/sec MV E/A 0.55 MV dec time 0.26 sec Ao V2 max 108.7 cm/sec Ao max PG 4.7 mmHg Ao max PG (full) 1.7 mmHg JOSÉ LUIS(V,A) 2.5 cm\S\2 JOSÉ LUIS(V,D) 2.5 cm\S\2 LV V1 max PG 3.0 mmHg LV V1 max 87.0 cm/sec
[2017-08-20] MEDS: METOPROLOL TARTRATE 25 MG TAB PO SCH (08:48)
[2017-08-20] MEDS: DOCUSATE SODIUM 100 MG CAP PO SCH (08:49)
[2017-08-20] MEDS: PREGABALIN 100 MG CAP PO SCH (08:49)
[2017-08-20] MEDS: OXYBUTYNIN CHLORIDE 5 MG TAB PO SCH (08:50)
[2017-08-20] MEDS: ASPIRIN 81 MG ECTAB PO SCH (08:50)
[2017-08-20] MEDS: ISOSORBIDE MONONITRATE 60 MG TABCR PO SCH (08:51)
[2017-08-20] MEDS: FAMOTIDINE 20 MG TAB PO SCH (08:51)
[2017-08-20] MEDS: CLOPIDOGREL BISULFATE 75 MG TAB PO SCH (08:51)
[2017-08-20] MEDS: PANTOprazole SOD 40 MG TAB PO SCH (08:53)
[2017-08-20] MEDS: ALLOPURINOL 300 MG TAB PO SCH (08:55)
[2017-08-20] MEDS ORDERED: LEVOFLOXACIN 250MG / D5W IV SCH (11:00)
[2017-08-20 11:04] VITALS: BP_SYST 127; BP_SYST 130; BP_DIAS 83; PULSE 67; PULSE 73
[2017-08-20 11:31] VITALS: BP 138/77; PULSE 64; TEMP 36.3; O2SAT 95
--- NOTE | 2017-08-20 12:31 | PROGRESS NOTE ---
DATE: 08/20/2017 FOLLOWUP VISIT SUBJECTIVE: The patient is a 72-year-old male with a history of severe tobacco associated COPD and coronary artery disease with recent coronary stents, last being placed in the LAD this week. He presented with dizziness and not feeling well. His metoprolol has been on hold and he feels much improved today. He has actually been up walking in the [place] and has no additional cardiac complaints today. OBJECTIVE: GENERAL: He is alert and oriented, in no acute distress. VITAL SIGNS: Blood pressure 130/80, pulse is regular at 67 beats per minute. He is afebrile. HEENT: He is normocephalic. Pupils are equal and reactive to light. Extraocular muscles are intact bilaterally. NECK: The neck veins are flat. Carotids have good upstrokes bilaterally without bruits. Thyroid is nonpalpable. RESPIRATORY: Breath sounds equal bilaterally and clear to auscultation. CARDIOVASCULAR: Heart has a regular rhythm. Normal S1 and S2. No S3 or S4. No cardiac rubs or murmurs. GASTROINTESTINAL: Abdomen is soft and nontender without organomegaly. EXTREMITIES: Free of edema, digit clubbing, or cyanosis. NEUROLOGIC: Grossly intact. SKIN: Warm to touch. LYMPH NODES: Negative to palpation. LABORATORY DATA: Hemoglobin is 11.8. Potassium is 4.1 and creatinine is 1.96. IMPRESSION: 1. Recent drug-eluting stents placed in the right coronary and LAD. 2. Severe obstructive pulmonary disease due to cigarette smoking. 3. Dizziness. 4. Class 3 chronic renal disease. RECOMMENDATIONS: As noted above, the patient's beta sabi was held and he feels much improved. It could be that the beta sabi is contributing to his symptoms from his COPD. At this point, I would recommend that we continue to hold the metoprolol. The patient has been in the hospital quite a bit recently and is anxious to go home. If we can switch him to oral medications, especially antibiotics for his bronchitis, then I think he can be discharged home. He tells me that he does have a followup appointment with his usual adjustment supervisor, Dr. Alphonso Casanova in the next several weeks.
--- NOTE | 2017-08-20 15:04 | Progress Note ---
Medicine Progress Note Date & Time of Visit: Aug 20, 2017 at 14:55. Subjective patient seen resting in bed, comfortable states he feels much better today denies dizziness, chest pain, palpitations denies dyspnea, cough denies toe bleeding, pain no other symptoms Objective Last 8 Hrs Date Time Temp Pulse Resp B/P (MAP) Pulse Ox O2 Delivery O2 Flow Rate FiO2 08/20/17 11:31 36.3 64 18 138/77 (97) 95 2.0 08/20/17 11:04 67 130/83 (99) 73 127/83 (98) 08/20/17 08:14 36.3 56 18 121/76 (91) 94 2.0 08/20/17 08:00 Room Air 08/20/17 07:12 67 16 94 Nasal Cannula 2.0 Physical Exam: General- oriented x 3, not in distress, speaks in sentences with no effort Head- atraumatic Eyes- anicteric Neck- no JVD Lungs- clear to auscultation bilaterally Heart- regular rhythm; no murmur, normal rate Abdomen- normal bowel sounds, soft, nontender Extremities- no pretibial edema, no calf tenderness; peripheral pulses intact 3rd toe: small wound at the tip healing well, no bleeding/erythema/edema/ discharge/tenderness Neuro- alert, oriented x 3; no gross focal deficits Skin- warm & dry Laboratory Results: Last 24 Hours Test 08/19/17 19:25 08/20/17 06:56 Total Creatine Kinase 223 U/L Creatine Kinase MB 2.9 ng/ml Creatine Kinase MB Ratio 1.3 Troponin I 0.023 ng/ml White Blood Count 8.96 K/uL Red Blood Count 3.52 M/uL Hemoglobin 11.8 g/dL Hematocrit 34.9 % Mean Corpuscular Volume 99.1 fL Mean Corpuscular Hemoglobin 33.5 pg Mean Corpuscular Hemoglobin Concent 33.8 g/dl Platelet Count 178 K/uL Mean Platelet Volume 10.1 fL Neutrophils (%) (Auto) 75.3 % Lymphocytes (%) (Auto) 12.3 % Monocytes (%) (Auto) 11.3 % Eosinophils (%) (Auto) 0.7 % Basophils (%) (Auto) 0.1 % Neutrophils # (Auto) 6.75 K/uL Lymphocytes # (Auto) 1.10 K/uL Monocytes # (Auto) 1.01 K/uL Eosinophils # (Auto) 0.06 K/uL Basophils # (Auto) 0.01 K/uL RDW Standard Deviation 53.8 fL RDW Coefficient of Variation 15.0 % Immature Granulocyte % (Auto) 0.3 % Immature Granulocyte # (Auto) 0.03 K/uL Sodium Level 138 mmol/L Potassium Level 4.1 mmol/L Chloride Level 107 mmol/L Carbon Dioxide Level 24 mmol/L Anion Gap 8.0 mmol/L Blood Urea Nitrogen 21 mg/dl Creatinine 1.96 mg/dl Est Creatinine Clear Calc Drug Dose 38.4 ml/min Estimated GFR () 38.5 Estimated GFR (Non- 33.2 BUN/Creatinine Ratio 10.9 Random Glucose 123 mg/dl Calcium Level 9.5 mg/dl Assessment & Plan 72 year old male with history of COPD, CAD s/p recent LAD Drug Eluting Stent Placement 08/14/17 at [facility], HTN, CKD 3, other problems below presenting with shortness of breath and dizziness. SHORTNESS OF BREATH MILD COPD EXACERBATION, ACUTE BRONCHITIS - CXR: no pneumonia - given rednisone 40mg Nebs q6h Levaquin - symptoms resolved upon discharge, advised to take Prednisone and Zpack rescue kit DIZZINESS S/P STENT PLACEMENT, LAD 08/14/17 - (+) orthostasis HR mid 50s to low 60s - echo: * -- Conclusions -- * The left ventricle is normal in size. * Left ventricular systolic function is normal. * Ejection Fraction = 55-60%. * The right ventricular systolic function is normal. * The left atrial size is normal. * Right atrial size is normal. * Grade I diastolic dysfunction, (abnormal relaxation pattern). * No significant valvular pathology. - Powder Cutting Operator Dr. Francois consulted Metoprolol and Amlodipine held, given IV fluids - recommend to HOLD Metoprolol and Amlodipine for now monitor BP and HR as outpatient MILD TROPONIN ELEVATION CAD S/P STENT PLACEMENT, LAD 08/14/17 - denies chest pain, no acute EKG changes - trop 0.05, then normalized - continue ASA, Plavix, Imdur hold Metoprolol and Amlodipine for now secondary to orthostasis, bradycardia RIGHT TOE BLEEDING - controlled with pressure, foam/dressing - resolved advised to monitor every day for signs of infection RIGHT ELBOW FRACTURE - follows with Ortho in [facility] - continue Arm Sling will follow up with Ortho in 1 week HTN hold Metoprolol and Amlodipine for now in light of orthostasis, bradycardia - continue Imdur monitor CKD 3 - crea improved to 1.9 after fluids FULL CODE DISPOSITION - anticipate d/c home - ff up: PCP Dr. Jones this week Cardio Dr. Casanova as scheduled Ortho in [facility] in 1 week Current Inpatient Medications: Current Inpatient Medications Medications (Trade) Dose Ordered Sig/Chata Route Start Time Stop Time Status Last Admin Dose Admin Prednisone (PredniSONE TAB) 40 mg DAILY PO 08/19/17 09:00 09/18/17 08:59 08/20/17 08:52 40 MG Levofloxacin (Consult) 1 ea UD PRN N/A 08/19/17 08:52 09/18/17 08:51 Allopurinol (Zyloprim Tab) 300 mg DAILY PO 08/19/17 09:00 09/18/17 08:59 08/20/17 08:55 300 MG Arformoterol Tartrate (Brovana 15MCG/ 2ML Neb Soln) 15 mcg BIDR INH 08/19/17 09:00 09/18/17 08:59 08/20/17 07:12 15 MCG Aspirin (Ecotrin Tab) 81 mg QAM PO 08/19/17 09:00 09/18/17 08:59 08/20/17 08:50 81 MG Atorvastatin Calcium (Lipitor Tab) 80 mg QPM PO 08/19/17 21:00 09/18/17 20:59 08/19/17 20:32 80 MG Budesonide (Pulmicort Respules 0.5MG/ 2ML Neb Soln) 1 mg BIDR INH 08/19/17 09:00 09/18/17 08:59 08/20/17 07:12 1 MG Clopidogrel Bisulfate (plAVix TAB) 75 mg DAILY PO 08/19/17 09:00 09/18/17 08:59 08/20/17 08:51 75 MG Docusate Sodium (coLACE CAP) 100 mg BID PO 08/19/17 09:00 09/18/17 08:59 08/20/17 08:49 100 MG Famotidine (Pepcid Tab) 20 mg DAILY PO 08/19/17 09:00 09/18/17 08:59 08/20/17 08:51 20 MG Ferrous Sulfate (Feosol Tab) 325 mg QPM PO 08/19/17 21:00 09/18/17 20:59 08/19/17 20:29 325 MG Isosorbide Mononitrate (Imdur Ext Rel Tab) 60 mg QAM PO 08/19/17 09:00 09/18/17 08:59 08/20/17 08:51 60 MG Lorazepam (Ativan Tab) 0.5 mg TID PRN PO 08/19/17 08:45 09/18/17 08:44 Oxybutynin Chloride (Ditropan Tab) 5 mg BID PO 08/19/17 09:00 09/18/17 08:59 08/20/17 08:50 5 MG Pregabalin (Lyrica Cap) 100 mg BID PO 08/19/17 09:00 09/18/17 08:59 08/20/17 08:49 100 MG Pantoprazole Sodium (Protonix Tab) 40 mg BID PO 08/19/17 09:00 09/18/17 08:59 08/20/17 08:53 40 MG Ipratropium Imperial (Atrovent 0.02% 0.5MG/2.5ML Neb) 0.5 mg Q6RWA INH 08/19/17 09:00 09/18/17 08:59 08/19/17 14:16 0.5 MG Levalbuterol (Xopenex 1.25MG/ 0.5ML Neb) 1.25 mg Q6RWA INH 08/19/17 09:00 09/18/17 08:59 08/19/17 14:16 1.25 MG Acetaminophen (Tylenol Tab) 650 mg Q4H PRN PO 08/19/17 09:45 09/18/17 09:44 Ondansetron HCl (Zofran Inj) 4 mg Q6H PRN IV 08/19/17 09:45 09/18/17 09:44 Nitroglycerin (Nitrostat Tab) 0.4 mg UD PRN SL 08/19/17 09:45 09/18/17 09:44 Levofloxacin 250 mg/Prmx 50 ml @ 50 mls/hr DAILY@1100 IV 08/20/17 11:00 08/26/17 10:59 08/20/17 11:09 50 MLS/HR Miscellaneous (Iv Fluids Completed) 1 ea PRN PRN N/A 08/19/17 14:30 08/19/18 14:29
--- NOTE | 2017-08-20 15:19 | Discharge Instructions ---
Discharge Instructions Date of Service Aug 20, 2017. Admission Reason for Admission: Shortness Of Breath Discharge Discharge Diagnosis / Problem: COPD EXACERBATION, ORTHOSTASIS Discharge Goals Goal(s): Diagnostic testing, Therapeutic intervention Activity Recommendations Activity Limitations: as noted below (NO HEAVY EXERTION UNTIL RE-EVALUATED BY PRIMARY CARE PHYSICIAN ) Lifting Limitations: until after follow-up appointment Exercise/Sports Limitations: until after follow-up appointment Driving or Machine Use: NO DRIVING UNTIL RE-EVALUATED BY PRIMARY CARE PHYSICIAN . Instructions / Follow-Up Instructions / Follow-Up PLEASE REVIEW YOUR NEW MEDICATION LIST AND FOLLOW INSTRUCTIONS CAREFULLY. TAKE THE PREDNISONE AND ZPACK RESCUE KIT DIRECTED. DO NOT TAKE METOPROLOL AND AMLODIPINE FOR NOW. FURTHER DIRECTIONS PER YOUR PRIMARY CARE PHYSICIAN AND POCKET CUTTER. CALL YOUR PRIMARY CARE PHYSICIAN OR RETURN TO ER IMMEDIATELY IF WITH RECURRENCE OF SYMPTOMS. FOLLOW UP WITH DR. EDWARDS ON 08/23/17 AT 1:00PM. FOLLOW UP WITH ORTHOPEDIC DOCTOR AND POCKET CUTTER SCHEDULED. Current Hospital Diet Patient's current hospital diet: AHA Diet (Heart Healthy) Discharge Diet Recommended Diet: AHA Diet (Heart Healthy) Procedures Procedures Performed: ECHOCARDIOGRAM Pending Studies Studies pending at discharge: no Medical Emergencies . Who to Call and When: Medical Emergencies: If at any time you feel your situation is an emergency, please call 911 immediately. . Non-Emergent Contact Non-Emergency issues call your: Primary Care Provider, Pressure Controller, Surgeon ( ORTHOPEDIC) Call Non-Emergent contact if: you have a fever, wound has increased drainage, wound has increased redness, wound has increased pain, you have any medication questions . . "Provider Documentation" section prepared by Pedro Luis Crowell. . VTE Core Measure Inpt VTE Proph given/why not?: SCD's
[2017-08-20 15:27] VITALS: BP 138/77; PULSE 64; TEMP 36.3; O2SAT 95
--- NOTE | 2017-08-20 15:27 | Discharge Summary ---
Discharge Summary Date of Service Aug 20, 2017. Discharge Summary Admission Date: Aug 19, 2017 at 08:35 Discharge Date: Aug 20, 2017 Discharge Disposition: Home Principal Diagnosis: SHORTNESS OF BREATH; MILD COPD EXACERBATION, ACUTE BRONCHITIS Secondary Diagnoses/Problems: Please refer to hospital course below. Procedures: CHEST ONE VIEW PORTABLE HISTORY: Atypical CHEST PAIN COMPARISON: Chest 06/25/2017. FINDINGS: No focal lung consolidations to suggest pneumonia. No pleural effusions. No pneumothorax. Bibasilar linear densities persist. The heart remains borderline enlarged. Right shoulder prosthesis. There is also a partially visualized left shoulder prosthesis. Tortuous thoracic aorta, unchanged. IMPRESSION: No significant change compared to the prior study. No acute process. Bibasilar linear densities favor atelectasis or scarring. ECHO: * -- Conclusions -- * The left ventricle is normal in size. * Left ventricular systolic function is normal. * Ejection Fraction = 55-60%. * The right ventricular systolic function is normal. * The left atrial size is normal. * Right atrial size is normal. * Grade I diastolic dysfunction, (abnormal relaxation pattern). * No significant valvular pathology. Consultations: Tabular Typist Dr. Francois Pending Studies/Follow-Up: Please refer to hospital course below. Medication Reconciliation Continued Medications: Albuterol Sulf (Proventil 0.083% 2.5MG/3ML) 2.5 Mg/3 Ml Nebu 2.5 MG NEB DAILY Allopurinol (Zyloprim) 300 Mg Tab 300 MG PO DAILY, TAB Arformoterol Tartrate (Brovana) 15 Mcg/2 Ml Neb 15 MCG NEB BID MIX WITH BEDESONIDE Aspirin (Aspir-81) 81 Mg Tab 81 MG PO QAM Aspirin (Aspirin Chewable) 81 Mg Chew 81 MG PO UD PRN for RESCUE X5 Atorvastatin (Lipitor) 80 Mg Tab 80 MG PO QPM, TAB Azithromycin (Zithromax) 250 Mg Tab Unknown Dose PO DAILY PRN for RESCUE KIT, #4 TAB Budesonide (Inhalation) (Pulmicort Respules 0.5MG/2ML) 0.5 Mg/2 Ml Yareli 2 ML NEB BID, EA Cholecalciferol (Vitamin D3) 2,000 Unit Cap 2000 INTER.UNIT PO QPM Clopidogrel Bisulfate (Clopidogrel) 75 Mg Tab 75 MG PO DAILY, #30 Cyanocobalamin (Cyanocobalamin) 1,000 Mcg/Ml Inj 1000 MCG IM MONTHLY Docusate Sodium (Stool Softener) 100 Mg Cap 100 MG PO BID Famotidine (Pepcid) 20 Mg Tab 20 MG PO DAILY, #30 TAB Ferrous Sulfate (Ferrous Sulfate) 325 Mg Tab 325 MG PO QPM Home O2 Therapy (Oxygen) Gas 3 LITERS NA HS Hydrocortisone Acetate (Rectal (Anusol-Hc) 25 Mg Sup 25 MG VT BID PRN for Hemorrhoids Ipratropium-Albuterol (Combivent Respimat) 1 Aer Aer 1 PUFF INH QID PRN for Cough/Wheezing Isosorbide Mononitrate (Isosorbide Mononitrate ER) 60 Mg Tab 60 MG PO QAM, #30 TAB 1 Refill Lorazepam (Lorazepam) 0.5 Mg Tab 0.5 MG PO TID PRN for Anxiety Miconazole Nitrate (Topical) (Antifungal) 2 % Cre 1 DOSE TOP BID PRN for SKIN IRRITATION Multiple Vitamins W/ Minerals (Centrum Silver Adult 50+) 1 Tab Tab 1 TAB PO DAILY Nitroglycerin (Nitrostat) 0.4 Mg Tab 0.4 MG UT UD PRN for Chest Pain Ondansetron Hcl (Zofran) 4 Mg Tab 4 MG PO TID PRN for Nausea, #30 TAB Oxybutynin Chloride (Oxybutynin Chloride) 5 Mg Tab 5 MG PO BID Pantoprazole Sodium (Protonix) 20 Mg Tab 20 MG PO BID Prednisone (Deltasone) 20 Mg Tab 20 MG PO UD PRN for COPD/Asthma Rescue Kit TAKE 2 TABLETS (40 MG) DAILY FOR 5 DAYS Pregabalin (Lyrica) 100 Mg Cap 100 MG PO BID Discontinued Medications: Amlodipine (Norvasc) 2.5 Mg Tab 2.5 MG PO DAILY, #30 TAB 1 Refill Metoprolol Tartrate (Lopressor) 25 Mg Tab 25 MG PO BID, #60 Admission Information HPI (per Admitting provider): 72 year old male with history of COPD, CAD s/p recent LAD Drug Eluting Stent Placement 08/14/17 at [facility], HTN, CKD 3, other problems below presenting with shortness of breath and dizziness. Patient underwent a Cardiac Cath with LED FAM placement last 08/14/17 at [facility]. Upon returning home, patient noted increasing dyspnea on exertion and dizziness/ lightheadedness. Also reports increasing cough with yellow sputum, but no fever. He developed a blister on his 3rd toe, right foot about 2 weeks ago after cutting his toenail. Last night, patient noted bleeding from the blister which he cannot control with pressure for about 5 hours. He then presented to the ED. At the ER, patient was noted to be wheezing and was given Duoneb with improvement of symptoms. EKG with no acute changes, Trop 0.05. On exam, patient feels improved compared to arrival. Denies active dyspnea, chest pain, dizziness, palpitations. The bleeding on the toe has stopped since placement of foam/dressing. No other symptoms. Physical Exam (per Admitting): General Appearance: WD/WN, no apparent distress Head: normocephalic, atraumatic Eyes: normal inspection, PERRL, EOMI, sclerae normal ENT: normal ENT inspection, hearing grossly normal, pharynx normal Neck: supple, no adenopathy, thyroid normal, no JVD, trachea midline Respiratory/Chest: chest non-tender, lungs clear, + wheezing (mild, at the bases, bilaterally) Cardiovascular: regular rate, rhythm, no edema, no JVD, no murmur, normal peripheral pulses Abdomen/GI: normal bowel sounds, non tender, soft Back: normal inspection, no CVA tenderness Extremities/Musculoskelatal: normal inspection, no calf tenderness, normal capillary refill, no pedal edema, normal range of motion, pelvis stable, + pertinent finding (3rd toe right foot: small healing wound at the tip, no active bleeding) Neurologic/Psych: campaign management senior manager II-XII nml as tested, no motor/sensory deficits, alert , normal mood/affect, normal reflexes, oriented x 3 Skin: normal color, warm/dry, no rash Lymphatic: no adenopathy Hospital Course 72 year old male with history of COPD, CAD s/p recent LAD Drug Eluting Stent Placement 08/14/17 at [facility], HTN, CKD 3, other problems below presenting with shortness of breath and dizziness. SHORTNESS OF BREATH MILD COPD EXACERBATION, ACUTE BRONCHITIS - CXR: no pneumonia - given Prednisone 40mg Nebs q6h Levaquin - symptoms resolved upon discharge, advised to take Prednisone and Zpack rescue kit ff up with PCP in the coming week DIZZINESS S/P STENT PLACEMENT, LAD 08/14/17 - (+) orthostasis HR mid 50s to low 60s - echo: * -- Conclusions -- * The left ventricle is normal in size. * Left ventricular systolic function is normal. * Ejection Fraction = 55-60%. * The right ventricular systolic function is normal. * The left atrial size is normal. * Right atrial size is normal. * Grade I diastolic dysfunction, (abnormal relaxation pattern). * No significant valvular pathology. - Tabular Typist Dr. Francois consulted Metoprolol and Amlodipine held, given IV fluids - recommend to HOLD Metoprolol and Amlodipine for now monitor BP and HR as outpatient MILD TROPONIN ELEVATION CAD S/P STENT PLACEMENT, LAD 08/14/17 - denies chest pain, no acute EKG changes - trop 0.05, then normalized - continue ASA, Plavix, Imdur hold Metoprolol and Amlodipine for now secondary to orthostasis, bradycardia RIGHT TOE BLEEDING - controlled with pressure, foam/dressing - resolved advised to monitor every day for signs of infection RIGHT ELBOW FRACTURE - follows with Ortho in [facility] - continue Arm Sling will follow up with Ortho in 1 week HTN hold Metoprolol and Amlodipine for now in light of orthostasis, bradycardia - continue Imdur monitor CKD 3 - crea improved to 1.9 after fluids DISPOSITION d/c home - ff up: PCP Dr. Edwards this week Cardio Dr. Casanova as scheduled Ortho in [facility] in 1 week Total time spent on discharge = 40 minutes This includes examination of the patient, discharge planning, medication reconciliation, and communication with other providers. Discharge Instructions Discharge Instructions Date of Service Aug 20, 2017. Admission Reason for Admission: Shortness Of Breath Discharge Discharge Diagnosis / Problem: COPD EXACERBATION, ORTHOSTASIS Discharge Goals Goal(s): Diagnostic testing, Therapeutic intervention Activity Recommendations Activity Limitations: as noted below (NO HEAVY EXERTION UNTIL RE-EVALUATED BY PRIMARY CARE PHYSICIAN ) Lifting Limitations: until after follow-up appointment Exercise/Sports Limitations: until after follow-up appointment Driving or Machine Use: NO DRIVING UNTIL RE-EVALUATED BY PRIMARY CARE PHYSICIAN . Instructions / Follow-Up Instructions / Follow-Up PLEASE REVIEW YOUR NEW MEDICATION LIST AND FOLLOW INSTRUCTIONS CAREFULLY. TAKE THE PREDNISONE AND ZPACK RESCUE KIT DIRECTED. DO NOT TAKE METOPROLOL AND AMLODIPINE FOR NOW. FURTHER DIRECTIONS PER YOUR PRIMARY CARE PHYSICIAN AND WEB PROGRAMMER. CALL YOUR PRIMARY CARE PHYSICIAN OR RETURN TO ER IMMEDIATELY IF WITH RECURRENCE OF SYMPTOMS. FOLLOW UP WITH DR. EDWARDS ON 08/23/17 AT 1:00PM. FOLLOW UP WITH ORTHOPEDIC DOCTOR AND WEB PROGRAMMER SCHEDULED. Current Hospital Diet Patient's current hospital diet: AHA Diet (Heart Healthy) Discharge Diet Recommended Diet: AHA Diet (Heart Healthy) Procedures Procedures Performed: ECHOCARDIOGRAM Pending Studies Studies pending at discharge: no Medical Emergencies . Who to Call and When: Medical Emergencies: If at any time you feel your situation is an emergency, please call 911 immediately. . Non-Emergent Contact Non-Emergency issues call your: Primary Care Provider, Tabular Typist, Surgeon ( ORTHOPEDIC) Call Non-Emergent contact if: you have a fever, wound has increased drainage, wound has increased redness, wound has increased pain, you have any medication questions . . "Provider Documentation" section prepared by Pedro Luis Crowell. . VTE Core Measure Inpt VTE Proph given/why not?: SCD's
== END 2017-08-20 14:01 | disposition home or self-care (01) ==
LOC: C.EDB 05:45 → C.2T 08:35 → EDBEDREQ 08:37 → ENRESERV 09:06
PROVIDERS: ADMIT Internal Medicine; ATTEND Internal Medicine
DX: R06.02 Shortness of breath (principal); J44.1 Chronic obstructive pulmonary disease with (acute) exacerbation; J20.9 Acute bronchitis, unspecified; S91.104A Unspecified open wound of right lesser toe(s) without damage to nail, initial encounter; I25.10 Atherosclerotic heart disease of native coronary artery without angina pectoris; X58.XXXA Exposure to other specified factors, initial encounter; N18.3 Chronic kidney disease, stage 3 (moderate); K21.9 Gastro-esophageal reflux disease without esophagitis; Z79.899 Other long term (current) drug therapy; Z79.82 Long term (current) use of aspirin; Z85.46 Personal history of malignant neoplasm of prostate; Z88.1 Allergy status to other antibiotic agents; Z88.0 Allergy status to penicillin; Z96.641 Presence of right artificial hip joint; Z87.891 Personal history of nicotine dependence; Z96.698 Presence of other orthopedic joint implants; Z80.9 Family history of malignant neoplasm, unspecified; Z82.49 Family history of ischemic heart disease and other diseases of the circulatory system; Z84.1 Family history of disorders of kidney and ureter

== ENCOUNTER 2017-10-15 19:33 | Emergency (ER) | payer OTHER, MEDICARE ==
[~2017-10-15] VITALS: Ht 170.2 cm; Wt 95.2 kg
[~2017-10-15 19:33] MED LIST changes: -ALBINS/ NEB; -AMLO2.5T PO; -ATV5X PO; -AZIT-57 PO; +AZIT250T PO; -CHOL2000 PO; +DTR5 PO; -LPR25 PO; +LYR100 PO; -MULT-506 PO; +MULT-845 PO; -NTRGSL/4 UT; -OMEP20CA9 PO; -PLMINS NEB; -PLV75 PO; -PRED-603 PO; -ZPAK PO
[2017-10-15 19:38] VITALS: BP 137/75; PULSE 87; TEMP 36.8; O2SAT 95; Ht 170.2 cm; Wt 95.2 kg
[2017-10-15] MEDS ORDERED: GELATIN SPONGE 12-7MM EXT STA (19:52)
--- NOTE | 2017-10-15 20:02 | EMERGENCY ROOM VISIT NOTE ---
ED Visit Note First contact with patient: 19:42 CHIEF COMPLAINT: Left middle toe laceration HISTORY OF PRESENT ILLNESS: This 72-year-old male patient presents to the emergency department, ambulatory, approximately 3 hours after cutting the tip of the left middle toe while attempting to cut the toenails. The patient has done this in the past, and states he always has difficulty getting the bleeding to stop The bleeding has not stopped. Denies weakness or numbness of the toe. The patient rates the pain as minimal and 0/10. The patient denies any other injuries. The patient's Tetanus shot is up to date. REVIEW OF SYSTEMS: A 6 system review of systems was completed with positives and pertinent negatives listed in the HPI. ALLERGIES: Benzocaine, clindamycin, doxycycline, clobetasol, tea tree oil, penicillin, phenylethylamine MEDICATIONS: See list PMH: Heart disease, "all kinds of stuff" SOCIAL HISTORY: Patient lives locally. He denies drug, alcohol use. He admits to occasional tobacco use. PHYSICAL EXAM: Vital Signs: Reviewed Nurse's notes, vital signs stable. GENERAL : His is a 72-year-old white male, in no acute distress, well-developed, well- nourished. SKIN: There is a 0.5 cm long laceration on the tip of the left middle toe which appears to have been sliced off with toenail clippers. There is no remaining skin intact to suture, but the wound is superficial. There is no foreign material in the wound and it looks clean. There is no bleeding. No deep structures such as tendons, bones, or significant blood vessels are seen in the base of the wound. Normal strength and movement of the toe. Capillary refill less than 2 seconds. Normal sensation to light and sharp touch. EMERGENCY DEPARTMENT COURSE: I examined the patient. Using sterile technique the wound was cleansed with Betadine. The wound was copiously irrigated under pressure with sterile saline. The wound was explored and was as described above. The wound was dressed with a Gelfoam bandage. The patient tolerated the procedure well. Hemostasis was achieved. The area was cleaned with sterile saline and dressed with bacitracin ointment and bandage. The patient was discharged home in good condition. The patient was independently seen and evaluated by Dr. Herrera. I attest that I have personally reviewed the patient's current medication list. Patient was found to have normal blood pressure on screening and does not require follow-up. DIFFERENTIAL DIAGNOSIS: Laceration, avulsion, fracture, infection, and others DIAGNOSIS: Left middle toe laceration Problem List Medical Problems: (1) Benign hypertension Status: Chronic (2) Chr Airway Obstruct Nec Permanent Comment: O2 2.5 L at [facility] Status: Chronic (3) Chronic kidney disease stage 3 Status: Chronic (4) Coronary artery disease Status: Chronic (5) Creatinine elevation Status: Resolved (6) Diverticulosis Colon (W/O Ment Of Hemorrhage) Status: Chronic (7) Gastroesophageal reflux disease Status: Chronic (8) Gracie filter in place Status: Chronic (9) Hypertension Nos Status: Chronic (10) Ileus, postoperative Status: Resolved (11) Pneumonia, Organism Nos Status: Resolved (12) Recurrent genital herpes simplex Status: Chronic (13) Total replacement of hip Status: Resolved Surgical Problems: (1) History of lumbar surgery Status: Resolved (2) History of right shoulder replacement Status: Resolved (3) History of temporomandibular joint syndrome Status: Resolved (4) Hx of transurethral resection of prostate Status: Resolved Current/Historical Medications Scheduled Albuterol Sulf (Proventil 0.083% 2.5MG/3ML), 2.5 MG NEB DAILY Allopurinol (Zyloprim), 300 MG PO DAILY Arformoterol Tartrate (Brovana), 15 MCG NEB BID Aspirin (Aspir-81), 81 MG PO QAM Atorvastatin (Lipitor), 80 MG PO QPM Budesonide (Inhalation) (Pulmicort Respules 0.5MG/2ML), 2 ML NEB BID Cholecalciferol (Vitamin D3), 2,000 INTER.UNIT PO QPM Clopidogrel Bisulfate (Clopidogrel), 75 MG PO DAILY Docusate Sodium (Stool Softener), 100 MG PO BID Famotidine (Pepcid), 20 MG PO DAILY Ferrous Sulfate (Ferrous Sulfate), 325 MG PO QPM Home O2 Therapy (Oxygen), 3 LITERS NA HS Isosorbide Mononitrate Ext Rel (Imdur Ext Rel), 60 MG PO QAM Multiple Vitamins W/ Minerals (Centrum Silver Adult 50+), 1 TAB PO DAILY Pantoprazole Sodium (Protonix), 20 MG PO BID Scheduled PRN Aspirin (Aspirin Chewable), 81 MG PO UD PRN for RESCUE Azithromycin (Zithromax), 250 MG PO UD PRN for COPD Rescue Kit Hydrocortisone Acetate (Rectal (Anusol-Hc), 25 MG GA BID PRN for Hemorrhoids Ipratropium-Albuterol (Combivent Respimat), 1 PUFF INH QID PRN for Cough/ Wheezing Lorazepam (Lorazepam), 0.5 MG PO TID PRN for Anxiety Miconazole Nitrate (Topical) (Antifungal), 1 APPLN TOP BID PRN for Skin Irritation Nitroglycerin (Nitrostat), 0.4 MG UT UD PRN for Chest Pain Prednisone (Deltasone), 20 MG PO UD PRN for COPD/Asthma Rescue Kit Allergies Coded Allergies: Benzocaine (Verified Allergy, Severe, SLOUGHING OF SKIN, 08/19/17) Clindamycin (Verified Allergy, Intermediate, RASH, 08/19/17) Vitamin B12 (Verified Allergy, Intermediate, Rash, 10/15/17) Clobetasol (Verified Allergy, Unknown, ITCHING, 08/19/17) Doxycycline (Verified Allergy, Unknown, RASH, 08/19/17) Penicillins (Verified Allergy, Unknown, HIVES, 08/19/17) Phenylethylamine (Verified Allergy, Unknown, ITCHING, 08/19/17) Tea Tree Oil (Verified Allergy, Unknown, ITCHING, 08/19/17) Vital Signs Date Time Temp Pulse Resp B/P (MAP) Pulse Ox O2 Delivery O2 Flow Rate FiO2 10/15/17 19:38 36.8 87 18 137/75 95 Room Air Departure Information Impression Primary Impression: Laceration of lesser toe of left foot w/o FB w/o damage to nail Dispostion Home / Self-Care Condition GOOD Referrals Jacob Jones MD (PCP) Patient Instructions ED Gelfoam Dressing, My [facility] Additional Instructions You were seen in the emergency department today for a laceration of the left middle toe. This was bandaged with a Gelfoam dressing. The dressing can be removed in 48 hours, and I do recommend she follow up with your PCP for removal and wound recheck. Keep the wound clean and dry until the dressing comes off. At that time, you may wash the wound, but do not soak it in water. Afterward, apply an antibiotic ointment with clean dressing to keep the wound clean and prevent infection. Acetaminophen(Tylenol) may be used for fever or pain. Use 1000mg every six hours as needed. Avoid using more than 3000mg in a 24 hour period. Return to the emergency Department or follow up with your PCP for any redness, swelling, increased pain, purulent drainage, fever, chills, nausea, vomiting, or other concerning symptoms. Problem Qualifiers Primary Impression: Laceration of lesser toe of left foot w/o FB w/o damage to nail Encounter type: initial encounter Qualified Codes: S91.115A - Laceration without foreign body of left lesser toe(s) without damage to nail, initial encounter
--- NOTE | 2017-10-15 20:24 | EMERGENCY ROOM VISIT NOTE ---
ED Visit Note First contact with patient: 19:42 The patient was seen and examined with PA. I agree with the history, physical and findings. Please see the note for disposition and details. Leading controlled with pressure. Dressing applied. Tetanus up-to-date.
[2017-10-15] MEDS ORDERED: FAMO20TA11 PO (20:34)
[2017-10-15] MEDS ORDERED: ISOS60TA25 PO (20:34)
[2017-10-15] MEDS ORDERED: ATV5X PO (21:42)
[2017-10-15] MEDS ORDERED: PRED-603 PO (21:42)
[2017-10-15] MEDS ORDERED: PLMINS NEB (21:48)
[2017-10-15] MEDS ORDERED: ALBINS/ NEB (21:50)
[2017-10-15] MEDS ORDERED: CHOL2000 PO (21:57)
[2017-10-15] MEDS ORDERED: PLV75 PO (23:14)
[2017-10-15] MEDS ORDERED: NTRGSL/4 UT (23:14)
== END 2017-10-15 20:35 | disposition home or self-care (01) ==
LOC: C.EDB 19:34 → C.EDD 20:35
DX: S91.115A Laceration without foreign body of left lesser toe(s) without damage to nail, initial encounter (principal); W26.8XXA Contact with other sharp object(s), not elsewhere classified, initial encounter; Y93.89 Activity, other specified; Y99.8 Other external cause status; Z72.0 Tobacco use; I12.9 Hypertensive chronic kidney disease with stage 1 through stage 4 chronic kidney disease, or unspecified chronic kidney disease; N18.3 Chronic kidney disease, stage 3 (moderate); I25.10 Atherosclerotic heart disease of native coronary artery without angina pectoris; K21.9 Gastro-esophageal reflux disease without esophagitis; Z87.01 Personal history of pneumonia (recurrent); Z96.611 Presence of right artificial shoulder joint; Z96.649 Presence of unspecified artificial hip joint; Z90.79 Acquired absence of other genital organ(s); Z98.890 Other specified postprocedural states; Z79.02 Long term (current) use of antithrombotics/antiplatelets; Z79.82 Long term (current) use of aspirin; Z79.899 Other long term (current) drug therapy

== ENCOUNTER 2018-04-27 14:27 | Emergency (ER) | payer OTHER, MEDICARE ==
[~2018-04-27] VITALS: Ht 170.2 cm; Wt 93.1 kg
[~2018-04-27 14:27] MED LIST changes: +ALBINS/ NEB; +ATV5X PO; +CHOL2000 PO; -CYNI1000 IM; +DTR/5 PO; -DTR5 PO; -IMDSR60 PO; +ISOS60TA25 PO; +LDDP5 TD; -LYR100 PO; +METO25TA3 PO; -MICO12CR TOP; +MORP15TA PO; +NTRGSL/4 UT; -ONDA4TAB46 PO; +PLMINS NEB; +PLV75 PO; +PRED-603 PO; +TRMCR130WC TD; +VALA1TAB2 PO
[2018-04-27 14:44] VITALS: TEMP 36.8; Ht 170.2 cm; Wt 93.1 kg
--- NOTE | 2018-04-27 16:58 | EMERGENCY ROOM VISIT NOTE ---
History Report prepared by Alice: Sudheer Sheehan Under the Supervision of: Dr. Jose Juan Herrera M.D. First contact with patient: 16:26 Chief Complaint: PAIN (GENERALIZED) Stated Complaint: BRUSES,LT SIDED PAIN,HURT AT WORK History of Present Illness The patient is a 73 year old male who presents to the Emergency Room with complaints of constant left sided pain and bruising beginning a few days ago. He reports he was at work Monday night and was told he needed to move a large amount of boxes and then fell. Patient states he did not hit his head or lose consciousness. The patient notes he had to move the heavy boxes by pushing them with his left side. Source of History: patient Onset: a few days ago Position: other (leftsded) Quality: other (pain and bruising) Timing: constant Note: Denies: hitting his head Review of Systems See HPI for pertinent positives and negatives. A total of ten systems were reviewed and were otherwise negative. Past Medical & Surgical Medical Problems: (1) Aortic aneurysm (2) Benign hypertension (3) Cellulitis (4) Chr Airway Obstruct Nec (5) Chronic kidney disease stage 3 (6) COPD (chronic obstructive pulmonary disease) (7) Coronary artery disease (8) Creatinine elevation (9) Diverticulosis Colon (W/O Ment Of Hemorrhage) (10) Gastroesophageal reflux disease (11) Tippo filter in place (12) Hypertension Nos (13) Ileus, postoperative (14) Pneumonia, Organism Nos (15) Prostate cancer (16) Recurrent genital herpes simplex (17) Shortness of breath (18) Total replacement of hip (19) Unstable angina Surgical Problems: (1) History of lumbar surgery (2) History of right shoulder replacement (3) History of temporomandibular joint syndrome (4) Hx of transurethral resection of prostate Family History Cancer Heart disease Kidney disease Social History Smoking Status: Former Smoker Alcohol Use: none Drug Use: none Marital Status: Housing Status: lives with significant other Occupation Status: retired Current/Historical Medications Scheduled Albuterol Sulf (Proventil 0.083% 2.5MG/3ML), 2.5 MG NEB DAILY Allopurinol (Zyloprim), 300 MG PO DAILY Arformoterol Tartrate (Brovana), 15 MCG NEB BID Aspirin (Aspir-81), 81 MG PO QAM Atorvastatin (Lipitor), 80 MG PO QPM Budesonide (Inhalation) (Pulmicort Respules 0.5MG/2ML), 2 ML NEB DAILY Cholecalciferol (Vitamin D3), 2,000 INTER.UNIT PO QPM Clopidogrel Bisulfate (Clopidogrel), 75 MG PO DAILY Docusate Sodium (Stool Softener), 100 MG PO BID Famotidine (Pepcid), 20 MG PO DAILY Ferrous Sulfate (Ferrous Sulfate), 325 MG PO QPM Home O2 Therapy (Oxygen), 3 LITERS NA HS Isosorbide Mononitrate Ext Rel (Imdur Ext Rel), 60 MG PO QAM Metoprolol Succ (Toprol Xl) (Toprol-Xl), 25 MG PO DAILY Multiple Vitamins W/ Minerals (Centrum Silver Adult 50+), 1 TAB PO DAILY Oxybutynin Chloride (Ditropan), 5 MG PO BID Pantoprazole Sodium (Protonix), 20 MG PO BID Triamcinolone Acet (Aristocort 0.1%), 1 APPLN TD BID Valacyclovir Hcl (Valtrex), 1,000 MG PO UD/PRN Scheduled PRN Acetaminophen/Codeine (Tylenol W/Codeine #3), 1 TABS PO TID PRN for Pain Aspirin (Aspirin Chewable), 81 MG PO UD PRN for RESCUE Azithromycin (Zithromax), 250 MG PO UD PRN for COPD Rescue Kit Hydrocortisone Acetate (Rectal (Anusol-Hc), 25 MG VT BID PRN for Hemorrhoids Ipratropium-Albuterol (Combivent Respimat), 1 PUFF INH QID PRN for Cough/ Wheezing Lidocaine (Lidocaine), 1 PATCH TD DAILY PRN for Pain Lorazepam (Lorazepam), 0.5 MG PO TID PRN for Anxiety Morphine Sulfate Ir (Morphine Sulfate Ir), 0 PO QID PRN for Severe Pain Nitroglycerin (Nitrostat), 0.4 MG UT UD PRN for Chest Pain Prednisone (Deltasone), 20 MG PO UD PRN for COPD/Asthma Rescue Kit Allergies Coded Allergies: Benzocaine (Verified Allergy, Severe, SLOUGHING OF SKIN, 08/19/17) Clindamycin (Verified Allergy, Intermediate, RASH, 08/19/17) Vitamin B12 (Verified Allergy, Intermediate, Rash, 10/15/17) Clobetasol (Verified Allergy, Unknown, ITCHING, 08/19/17) Doxycycline (Verified Allergy, Unknown, RASH, 08/19/17) Penicillins (Verified Allergy, Unknown, HIVES, 08/19/17) Phenylethylamine (Verified Allergy, Unknown, ITCHING, 08/19/17) Tea Tree Oil (Verified Allergy, Unknown, ITCHING, 08/19/17) Physical Exam Vital Signs Date Time Temp Pulse Resp B/P (MAP) Pulse Ox O2 Delivery O2 Flow Rate FiO2 04/27/18 18:02 64 18 150/85 97 04/27/18 16:33 64 18 149/87 96 Room Air 04/27/18 14:44 36.8 77 18 137/87 92 Room Air Physical Exam Physical Exam GENERAL: He is oriented to person, place, and time. He appears well-developed and well-nourished. He does not appear distressed. HENT: Exam performed. Head: Normocephalic and atraumatic. Right Ear: External ear normal. No mastoid tenderness. Left Ear: External ear normal. No mastoid tenderness. Mouth/Throat: The oropharynx is clear and moist. No trismus in the jaw. No dental abscesses or uvula swelling. No oropharyngeal exudate or tonsillar abscesses. EYES: Conjunctivae and EOM are normal. Pupils are equal, round, and reactive to light. Right eye exhibits no discharge. Left eye exhibits no discharge. No scleral icterus. NECK: Normal range of motion. Neck supple. No JVD present. No spinous process tenderness present. No carotid bruit present. No rigidity. No tracheal deviation and normal range of motion present. No Brudzinski's sign and no Kernig 's sign noted. CV: Normal rate, regular rhythm, normal heart sounds and intact distal pulses. There is no peripheral edema. Palpable radial pulses bue. PULM/CHEST: Effort normal and breath sounds normal. No respiratory distress. No stridor. He has no wheezes. He has no rales. Chest Wall: He exhibits tenderness to palpation to the left anterior lateral ribs reproducing the cc. No crepitus. ABD: The abdomen is soft. Bowel sounds are normal. He has no distension. No mass is present. There is no tenderness. There is no rebound, no guarding, no Delgado's sign and no tenderness at McBurney's point. Rovsig negative. MUSC/SKEL: Normal range of motion. There is no peripheral edema, tenderness or deformity. LYMPH: No cervical adenopathy. NEURO: He is alert and oriented to person, place, and time. He has normal strength. No cranial nerve deficit or sensory deficit. Coordination and gait normal. GCS eye subscore is 4. GCS verbal subscore is 5. GCS motor subscore is 6. Cerebellar tests wnl. SKIN: Skin is warm and dry. He is not diaphoretic. Ecchymosis to the left upper and lower extremities where the patient fell. PSYCH: He has a normal mood and affect. Behavior is normal. Judgment and thought content normal. Medical Decision & Procedures ER Provider Diagnostic Interpretation: X-ray: Per my interpretation, radiologist review. L RIBS UNILATERAL WITH PA CHEST CLINICAL HISTORY: Left-sided chest pain status post trauma COMPARISON STUDY: Chest x-ray dated 04/12/2018 FINDINGS: The heart is mildly enlarged. There is aortic tortuosity. There is no pneumothorax. There are bilateral shoulder arthroplasties. There is a left ninth rib fracture. And IVC filter is visualized. IMPRESSION: 1. Fracture of the left ninth rib laterally 2. No evidence of pneumothorax. Electronically signed by: Darius Muro M.D. 04/27/2018 5:08 PM Dictated Date/Time: 04/27/2018 5:00 PM Procedure Bedside FAST exam performed with ultrasound. Views were obtained in the hepatorenal subxyphoid splenorenal and suprapubic windows. No free fluid in the abdomen. No pericardial tamponade. ED Course 1627: The patient was evaluated in room A03. A complete history and physical exam was performed. 1724: Vital signs stable. X-ray shows that the left 9th rib is fractured. Fast exam negative. The patient will be discharged with analgesia and an incentive spirometer. DISCHARGE - Plan of care discussed with patient and questions answered. The patient was given both verbal and printed discharge instructions. The patient verbalized understanding and ability to comply. The patient is to seek outpatient follow up as noted in the discharge instructions. The patient verbalized understanding and ability to comply. The patient is discharged in stable condition. The patient was instructed to return for worsening symptoms. Medical Decision Vital signs stable. X-ray shows that the left 9th rib is fractured. Fast exam negative. The patient will be discharged with analgesia and an incentive spirometer. DISCHARGE - Plan of care discussed with patient and questions answered. The patient was given both verbal and printed discharge instructions. The patient verbalized understanding and ability to comply. The patient is to seek outpatient follow up as noted in the discharge instructions. The patient verbalized understanding and ability to comply. The patient is discharged in stable condition. The patient was instructed to return for worsening symptoms. [place] Drug [place] Search Results: patient reviewed within database, see additional documentation Drug Monitoring Findings: Pt received a prescription for morphine sulfate tablets, 11 of them, on April 12. Pt states he threw these away and no longer has them. I will discharge him with a few Tylenol/Codeine tables for his fractured rib. Medication Reconcilliation Current Medication List: was personally reviewed by me Blood Pressure Screening Patient's blood pressure: Elevated blood pressure Blood pressure disposition: Elevated BP felt to be situational Impression Primary Impression: Left rib fracture Scribe Attestation The scribe's documentation has been prepared under my direction and personally reviewed by me in its entirety. I confirm that the note above accurately reflects all work, treatment, procedures, and medical decision making performed by me. The chart was completed utilizing Exo Speech voice recognition software. Grammatical errors, random word insertions, pronoun errors, and incomplete sentences are an occasional consequence of this system due to software limitations, ambient noise, and hardware issues. Any formal questions or concerns about the content, text, or information contained within the body of this dictation should be directly addressed to the physician for clarification. Departure Information Dispostion Home / Self-Care Prescriptions Acetaminophen/Codeine (Tylenol W/Codeine #3) 300 Mg/30 Mg Tab 1 TABS PO TID Y for Pain, #7 TAB Prov: Jose Juan Herrera M.D. 04/27/18 Referrals Jacob Jones MD (PCP) Forms HOME CARE DOCUMENTATION FORM, IMPORTANT VISIT INFORMATION, WORK / SCHOOL INSTRUCTIONS Patient Instructions ED Fx Rib, Incentive Spirometer Al, [facility] Problem Qualifiers Primary Impression: Left rib fracture Encounter type: initial encounter Rib fracture type: single rib Fracture type: closed Qualified Codes: S22.32XA - Fracture of one rib, left side, initial encounter for closed fracture
--- NOTE | 2018-04-27 17:09 | DIAGNOSTIC IMAGING REPORT ---
L RIBS UNILATERAL WITH PA CHEST CLINICAL HISTORY: Left-sided chest pain status post trauma COMPARISON STUDY: Chest x-ray dated 04/12/2018 FINDINGS: The heart is mildly enlarged. There is aortic tortuosity. There is no pneumothorax. There are bilateral shoulder arthroplasties. There is a left ninth rib fracture. And IVC filter is visualized. IMPRESSION: 1. Fracture of the left ninth rib laterally 2. No evidence of pneumothorax. Electronically signed by: Darius Muro M.D. 04/27/2018 5:08 PM Dictated Date/Time: 04/27/2018 5:00 PM
[2018-04-27] MEDS ORDERED: ACET300T3 PO (17:35)
[2018-04-27 18:02] VITALS: BP 150/85; PULSE 64; O2SAT 97
== END 2018-04-27 18:03 | disposition home or self-care (01) ==
LOC: C.EDB 14:29 → C.EDA 18:03
DX: S22.32XA Fracture of one rib, left side, initial encounter for closed fracture (principal); S40.022A Contusion of left upper arm, initial encounter; S50.12XA Contusion of left forearm, initial encounter; S80.12XA Contusion of left lower leg, initial encounter; S70.12XA Contusion of left thigh, initial encounter; W19.XXXA Unspecified fall, initial encounter; Y99.0 Civilian activity done for income or pay; Z87.891 Personal history of nicotine dependence; Z88.8 Allergy status to other drugs, medicaments and biological substances; Z79.899 Other long term (current) drug therapy; Z88.0 Allergy status to penicillin; J44.9 Chronic obstructive pulmonary disease, unspecified; I12.9 Hypertensive chronic kidney disease with stage 1 through stage 4 chronic kidney disease, or unspecified chronic kidney disease; N18.3 Chronic kidney disease, stage 3 (moderate); Z85.46 Personal history of malignant neoplasm of prostate

== ENCOUNTER → 2018-05-09 | Outpatient (CLI) | payer OTHER, MEDICARE ==
[~2018-05-09] MED LIST changes: +ACET300T3 PO
--- NOTE | 2018-05-09 12:30 | DIAGNOSTIC IMAGING REPORT ---
CHEST 2 VIEWS ROUTINE CLINICAL HISTORY: 73 years-old Male presenting with RIB FRACTURE, RIB PAIN ON RIGHT SIDE. TECHNIQUE: PA and lateral views of the chest were obtained. COMPARISON: 04/12/2018. FINDINGS: Atherosclerosis of the aortic arch. Tortuosity of the descending thoracic aorta. Cardiac silhouette normal in size. Minimal pleural thickening suggested along the right lateral upper lung. Lungs and pleural spaces otherwise clear. Mild hyperinflation and heterogeneity of lung parenchyma. Possible displaced fracture of the right lateral fourth rib. Degenerative changes of the spine. Bilateral shoulder arthroplasties. The presence of a hiatal hernia is better appreciated on most recent CT. IMPRESSION: 1. Possible displaced fracture of the right lateral fourth rib with pleural thickening potentially representing extrapleural hemorrhage. Dedicated rib radiographs could be obtained if clinically indicated. 2. Findings suggest emphysema. No focal infiltrate to suggest pneumonia. Electronically signed by: Delfino Snow M.D. 05/09/2018 12:28 PM Dictated Date/Time: 05/09/2018 12:25 PM
== END | disposition home or self-care (01) ==
LOC: C.RAD1850 12:14
PROVIDERS: ATTEND Nurse Practitioner Family
DX: R07.81 Pleurodynia (principal); S22.39XA Fracture of one rib, unspecified side, initial encounter for closed fracture; X58.XXXA Exposure to other specified factors, initial encounter

== ENCOUNTER 2019-03-29 18:33 | Observation (INO) ==
--- OUTSIDE RECORDS SUMMARY | 2019-03-29 18:35 | External Medical Summary | Continuity of Care Document ---
:1945 Author Name Sveta Fuentes, Provider Address Unavailable Unavailable , Care Team Providers Name Role Phone Maggie Isaac Unavailable [email or web address] Unavailable Unavailable Unavailable Unavailable Unavailable Problems Polyneuropathy (356.9) (G62.9) Internal hemorrhoids (455.0) (K64.8) Diverticulosis (562.10) (K57.90) Tubular adenoma of colon (211.3) (D12.6) Rib pain on left side (786.50) (R07.81) Fracture of rib, single, closed (807.01) (S22.39XA) Allergies and Adverse Reactions Benzocaine Powder (Allergy) Cleocin CAPS (Allergy) clindamycin (Allergy) Clobetasol Propionate CREA (Allergy) doxycycline (Allergy) Penicillins (Allergy) Tea Tree OIL (Allergy) Medications Acetaminophen-Codeine #3 300-30 MG Oral Tablet; TAKE 1 TABLET EVERY 6 HOURS NEEDED. CHUN Roa Start: 09-May-2018 Quantity: 30 Refills: 1 Zyloprim 300 MG Oral Tablet Start: Refills: 0 Isosorbide Mononitrate ER 60 MG Oral Tablet Extended Release 24 Hour Start: 09-May-2018 Refills: 0 Lipitor 80 MG Oral Tablet Start: 018 Refills: 0 Iron 18 MG Oral Tablet Extended Release Start: 09-May-2018 Refills: 0 Pepcid 20 MG Oral Tablet Start: 09-May-20 18 Refills: 0 Protonix 20 MG Oral Tablet Delayed Relea se; TAKE 2 TABLETS TWICE DAILY BEFORE MEALS. Start: 09-May-2018 Refills: 0 Budesonide 0.5 MG/2ML Inhalation Suspension Start: 09-May-2018 Refills: 0 5 x 2 ML Plas Cont Oxybutynin Chloride 5 MG Oral Tablet Sta rt: 09-May-2018 Refills: 0 SM Stool Softener [address] art: 09-May-2018 Refills: 0 Brovana 15 MCG/2ML Inhalation Nebulization Solution Start: 09-May-2018 Refills: 0 30 x 2 ML Plas Cont Oxygen Start: 09-May-2018 Refills: 0 Nitroglycerin 0.4 MG Sublingual Tablet Sublingual Start: 09-May-2018 Refills: 0 LORazepam 0.5 MG Oral Tablet Start: Refills: 0 Anusol-HC 25 MG Rectal Suppository Start : 09-May-2018 Refills: 0 Combivent Respimat 20-100 MCG/ACT Inhalation Aerosol Solutio n Start: 09-May-2018 Refills: 0 4 GM Inhaler Vitamin D3 2000 UNIT Oral Tablet Chewable Start: 09-May-2018 Refills: 0 Plavix 75 MG Oral Tablet; TAKE 1 TABLET DAILY. Start: 09-May-2018 Quantity: 30 Refills: 0 Valtrex 1 GM Oral Tablet Start: 09-May-20 18 Refills: 0 Toprol XL 25 MG Oral Tablet Extended Rel ease 24 Hour; TAKE 1 TABLET BY MOUTH EVERY DAY Start: 09-May-2018 Refills: 0 Albuterol Sulfate 1.25 MG/3ML Inhalation Nebulization Soluti on Start: 09-May-2018 Refills: 0 25 x 3 ML Plas Cont Procedures History of coronary artery stent placement Status: Completed History of shoulder replacement Status: Completed History of hip replacement Status: Compl eted Immunizations Immunizations not documented Plan of Treatment Planned Observations Planned Goals not documented Results No Known Results Results not documented Encounters Appointment; Maggie Roa CRNP 16-May-2018 10:15 Encounter Diagnosis: Problem not documented Appointment; Maggie Roa CRNP 09-May-2018 11:00 Encounter Diagnosis: Problem not documented Appointment; Maggie Roa CRNP 20-Jun-2018 14:00 Encounter Diagnosis: Problem not documented
[2019-03-29] MEDS ORDERED: SODIUM CHLORIDE 0.9% 500 ML IV SCH (19:00)
[2019-03-29 19:49] LABS: Basophils # (auto) 0.02 K/uL (0-0.2); Basophils % (auto) 0.3 %; Eosinophils % (auto) 1.4 %; Hematocrit (blood only) 34.4 % (42-52); Hemoglobin 11.8 g/dL (14.0-18.0); Immature Granulocytes # (auto) 0.02 K/uL (0.00-0.02); Immature Granulocytes % (auto) 0.3 %; Lymphocytes % (auto) 17.3 %; Mean Corpuscular Hgb Conc 34.3 g/dL (32-36); Mean Corpuscular Volume 99.1 fL (80-100); Mean Platelet Volume 10.8 fL (7.4-10.4); Monocytes # (auto) 0.62 K/uL (0.11-0.59); Monocytes % (auto) 8.9 %; Neutrophils # (auto) 4.99 K/uL (1.4-6.5); Neutrophils % (auto) 71.8 %; Platelet Count 147 K/uL (130-400); RDW Coefficient of Variation 14.5 % (11.5-14.5); Red Blood Count 3.47 M/uL (4.7-6.1); White Blood Count 6.95 K/uL (4.8-10.8)
[2019-03-29 20:08] LABS: Albumin Level 3.7 gm/dl (3.4-5.0); BUN Creatinine Ratio 9.5 (10-20); Calcium 9.3 mg/dl (8.5-10.1); Creatinine Clr Calc Pharmacy 30.5 ml/min; Est GFR (African American) 31.6; Est GFR (Non-African American) 27.3
[2019-03-29 20:10] LABS: INR 1.2 (0.9-1.1); Partial Thromboplastin Ratio 0.8; Prothrombin Time 11.7 Seconds (9.0-12.0)
[2019-03-29 20:13] LABS: Bilirubin,Total 0.9 mg/dl (0.2-1); Globulin 3.7 gm/dl (2.5-4.0); Total Protein 7.4 gm/dl (6.4-8.2); Troponin I 0.016 ng/ml (0-0.045)
[2019-03-29] MEDS ORDERED: HYDROCORTISONE ACETATE 25 MG SUPP PR PRN (22:49)
[2019-03-29] MEDS ORDERED: ONDANSETRON INJ 2 MG/ML 2 ML VIAL IV PRN (22:49)
[2019-03-29] MEDS ORDERED: DOCUSATE SODIUM 100 MG CAP PO PRN (22:49)
[2019-03-29] MEDS ORDERED: MICONAZOLE NITRATE 2% CR 30 GM TUBE TOP PRN (22:49)
[2019-03-29] MEDS ORDERED: NITROGLYCERIN SL 0.4 MG/TAB TAB SL PRN (22:49)
[2019-03-29] MEDS ORDERED: LORazepam 0.5 MG TAB PO PRN (22:49)
[2019-03-29] MEDS ORDERED: IPRATROPIUM BROMIDE/ALBUTEROL respimat INH INH PRN (22:49)
[2019-03-29] MEDS ORDERED: ALBUTEROL 0.083% NEBU SOLN 3 ML VIAL INH PRN (22:49)
[2019-03-29] MEDS ORDERED: ALBUT/IPRATROP 3MG/0.5MG NEB 3 ML VIAL NEB PRN (22:49)
[2019-03-29] MEDS ORDERED: SODIUM CHLORIDE 0.9% 1000ML 1,000 ML IV SCH (22:49)
[2019-03-29] MEDS: cephALEXin 250 MG CAP PO SCH (23:49)
--- NOTE | 2019-03-30 00:02 | Emergency Department Note ---
Entered by Jennifer Mathis acting as a scribe for History of Present Illness General Chief complaint: Chest Pain Stated complaint: LOW BLOOD PRESSURE, CHEST PAIN- CARDIAC HX Source: patient History of Present Illness Provider complaint: chest pain Onset (ago): hour(s) 3 Location: chest Severity: similar to prior episodes Pain Consistency: + other (episode) Associated symptoms: + headaches, + shortness of breath and + other (dizziness) The patient is a 74 year old male who presents to the ED with an episode of chest pain that began 3 hours ago. The patient states he was seeing his family doctor to get some tests done but his doctor referred him to the ED because his blood pressure was abnormally low. The patient states that he has a headache, feels dizzy and slightly short of breath. The patient notes that this pain is similar to episodes in the past. Home Medications Home Medications Medication Instructions Recorded Confirmed Type Combivent Respimat 1 puff INHALATION QID PRN 06/14/18 03/29/19 History allopurinol 300 mg PO QAM 06/14/18 03/29/19 History aspirin [Aspirin Low Dose] 81 mg PO QAM 06/14/18 03/29/19 History atorvastatin 80 mg PO QPM 06/14/18 03/29/19 History cholecalciferol (vitamin D3) 2,000 unit PO QPM 06/14/18 03/29/19 History [Vitamin D3] docusate sodium 100 mg PO BID PRN 06/14/18 03/29/19 History famotidine 20 mg PO QAM 06/14/18 03/29/19 History ferrous sulfate 325 mg PO QPM 06/14/18 03/29/19 History isosorbide mononitrate 60 mg PO QAM 06/14/18 03/29/19 History lorazepam 0.5 mg PO TID PRN 06/14/18 03/29/19 History metoprolol succinate 25 mg PO QAM 06/14/18 03/29/19 History nitroglycerin 1 tab SUBLINGUAL UD PRN 06/14/18 03/29/19 History oxybutynin chloride 5 mg PO BID 06/14/18 03/29/19 History pantoprazole 20 mg PO BID 06/14/18 03/29/19 History triamcinolone acetonide 1 applic TOPICAL BID 06/14/18 03/29/19 History Brovana 15 mcg INHALATION BID 01/07/19 03/29/19 History Lyrica 25 mg PO TID 01/07/19 03/29/19 History albuterol sulfate 2.5 mg INHALATION Q4 PRN 01/07/19 03/29/19 History budesonide [Pulmicort] 0.5 mg INHALATION BID 01/07/19 03/29/19 History valacyclovir [Valtrex] 1,000 mg PO UD PRN 01/07/19 03/29/19 History aspirin [Aspir-81] 0 mg PO DAILY PRN 03/29/19 03/29/19 History azithromycin 0 mg PO DIRECTED PRN 03/29/19 03/29/19 History hydrocortisone acetate [Anusol-HC] 25 mg UT DAILY PRN 03/29/19 03/29/19 History miconazole nitrate [Antifungal 1 applic TOPICAL DAILY PRN 03/29/19 03/29/19 History Cream (miconazole)] dxmpvbtg-sbo-HV-lycopen-lutein 1 tab PO QAM 03/29/19 03/29/19 History [Centrum Silver] prednisone [Deltasone] 0 mg PO DIRECTED PRN 03/29/19 03/29/19 History Allergies Allergy/AdvReac Type Severity Reaction Status Date / Time benzocaine Allergy Severe SLOUGHING Verified 03/29/19 19:59 OF SKIN clindamycin Allergy Intermediate RASH Verified 03/29/19 19:59 cyanocobalamin (vitamin B12) Allergy Intermediate Rash Verified 03/29/19 19:59 clobetasol Allergy Mild ITCHING Verified 03/29/19 19:59 doxycycline Allergy Mild RASH Verified 03/29/19 19:59 Penicillins Allergy Mild HIVES Verified 03/29/19 19:59 povidone-iodine Allergy Mild Hives Verified 03/29/19 19:59 [From Betadine] soap [From Betadine] Allergy Mild Hives Verified 03/29/19 19:59 tea tree Allergy Mild ITCHING Verified 03/29/19 19:59 Phenylethylamine Allergy Mild ITCHING Uncoded 03/29/19 19:59 Past Med/Surg History Social History Preferred Language: French Communication Ability: Effective Cherry Pitter Required: No Beliefs That Will Affect Care: None Current Living Situation: Spouse Current Living Situation Comment: Lives with and son Other Information That Helps Us Care for You: No Feels Safe at Home: Yes Safety Concerns: Feels Safe At This Time Smoking Status: Current every day smoker Tobacco Type: cigars Cigarettes Per Day: 1 CIGAR/DAY Do You Dip or Chew Tobacco: No Second Hand Exposure: No Tobacco Cessation Education Requested by Patient: No Hx Alcohol Use: Yes Alcohol type: beer Hx Substance Use: No Review of Systems See HPI for pertinent positives & negatives. and A total of 10 systems reviewed and were otherwise negative Physical Exam Vital Signs Vital Signs - 24 hr 03/29/19 18:34 03/29/19 18:38 03/29/19 18:55 Temperature 36.8 C Temperature Source Oral Sepsis Recent Fever Within 48 Hours No Sepsis New/Unexplained Change in Mental Status No Sepsis Action Taken by Nursing No Action Required Pulse Rate 80 81 Respiratory Rate 18 29 H Blood Pressure 95/57 L 100/68 Blood Pressure Mean 69 78 Pulse Oximetry 96 96 95 Oxygen Delivery Method Room Air Room Air Room Air 03/29/19 18:59 03/29/19 19:00 03/29/19 19:10 Temperature Temperature Source Sepsis Recent Fever Within 48 Hours Sepsis New/Unexplained Change in Mental Status Sepsis Action Taken by Nursing Pulse Rate 81 81 76 Respiratory Rate 30 H 23 19 Blood Pressure 92/70 L Blood Pressure Mean 77 Pulse Oximetry 96 96 Oxygen Delivery Method Room Air 03/29/19 19:29 03/29/19 20:00 03/29/19 20:43 Temperature Temperature Source Sepsis Recent Fever Within 48 Hours Sepsis New/Unexplained Change in Mental Status Sepsis Action Taken by Nursing Pulse Rate 76 64 62 Respiratory Rate 22 19 15 Blood Pressure 97/65 L 117/76 110/75 Blood Pressure Mean 75 89 86 Pulse Oximetry 96 Oxygen Delivery Method 03/29/19 20:44 03/29/19 21:00 03/29/19 21:01 Temperature Temperature Source Sepsis Recent Fever Within 48 Hours Sepsis New/Unexplained Change in Mental Status Sepsis Action Taken by Nursing Pulse Rate 64 70 69 Respiratory Rate 15 13 17 Blood Pressure 87/64 L Blood Pressure Mean 71 Pulse Oximetry Oxygen Delivery Method 03/29/19 21:32 Temperature Temperature Source Sepsis Recent Fever Within 48 Hours Sepsis New/Unexplained Change in Mental Status Sepsis Action Taken by Nursing Pulse Rate 56 L Respiratory Rate 19 Blood Pressure 111/80 Blood Pressure Mean 90 Pulse Oximetry Oxygen Delivery Method GENERAL: Awake, alert, well-appearing, in no distress HENT: Normocephalic, atraumatic. EYES: Normal conjunctiva. Sclera non-icteric. EOMI NECK: Supple. No nuchal rigidity. RESPIRATORY: Clear to auscultation. Normal respiratory effort. CARDIAC: Normal rate. Normal rhythm. Extremities warm and well perfused. GI: Soft, non-distended. No tenderness to palpation. No rebound or guarding. No masses. RECTAL: Deferred. MUSCULOSKELETAL: Atraumatic. Chest examination reveals no tenderness. There is no CVA tenderness to palpation. LOWER EXTREMITIES: Calves are equal size bilaterally and non-tender. No edema. Right dorsal foot 1cm callus slightly erythematous. Decreased ROM R shoulder 2/2 pain there. NEURO: Normal sensorium. No sensory deficits noted. No facial droop. No slurred speech SKIN: Warm and dry. No jaundice noted. Course 1853: Past medical records reviewed. The patient was evaluated in room B6. A complete history and physical exam was performed. 2051: I discussed the patient's case with Dr. Alaina Allan. He agrees t hat the patient should be admitted for cardiac workup. 2100: I discussed the patient's case with Dr. Alvares [facility] Hospitalist. He will evaluate the patient for further management. Consultations Consultation #1: I discussed the patient's case with Dr. Alaina Allan. He agrees that the patient should be admitted for cardiac workup. Time: 20:52 Consultation #2: I discussed the patient's case with Dr. lAvares [facility] Hospitalist. He will evaluate the patient for further management. Time: 21:00 Administered Medications Cephalexin HCl (Keflex) 500 mg PO BID [facility] Stop: 04/08/19 22:48 Last Admin: 03/29/19 23:49 Dose: 500 mg Documented by: [id number] Sodium Chloride (Nss 1000ml) 1,000 mls @ 75 mls/hr IV .[id number] MANDY Stop: 03/30/19 20:00 Last Admin: 03/29/19 23:49 Dose: 75 mls/hr Documented by: [id number] Discontinued Medications Sodium Chloride (Nss) 500 mls @ 999 mls/hr IV .[id number] MANDY Stop: 03/29/19 19:30 Last Infusion: 03/29/19 20:46 Dose: 0 mls/hr Documented by: [id number] Admin: 03/29/19 19:31 Dose: 999 mls/hr Documented by: [id number] Medical Decision Making Differential Diagnosis Differential Diagnosis includes but is not limited to dehydration, stroke, anemia, hypoglycemia, hyponatremia, hypernatremia, urinary tract infection, pneumonia, bronchitis, sepsis, gastroenteritis, additional abdominal pathology, metabolic abnormalities and infections. Medical Records Attestation: I reviewed the patient's medical records. Home Medications Current Medication List: was personally reviewed by me Laboratory Data Attestation: I reviewed the patient's lab results. Result diagrams: 03/29/19 19:29 03/29/19 19:29 Lab Results 03/29/19 03/29/19 03/29/19 Range/Units 19:29 19:29 19:29 WBC 6.95 (4.8-10.8) K/uL RBC 3.47 L (4.7-6.1) M/uL Hgb 11.8 L (14.0-18.0) g/dL Hct 34.4 L (42-52) % MCV 99.1 (80-100) fL MCH 34.0 (25-34) pg MCHC 34.3 (32-36) g/dL RDW Std Deviation 52.0 H (36.4-46.3) fL RDW Coeff of Zoë 14.5 (11.5-14.5) % Plt Count 147 (130-400) K/uL MPV 10.8 H (7.4-10.4) fL Immature Gran % (Auto) 0.3 % Neut % (Auto) 71.8 % Lymph % (Auto) 17.3 % [place] % (Auto) 8.9 % Eos % (Auto) 1.4 % Baso % (Auto) 0.3 % Immature Gran # (Auto) 0.02 (0.00-0.02) K/uL Neut # (Auto) 4.99 (1.4-6.5) K/uL Lymph # (Auto) 1.20 (1.2-3.4) K/uL [place] # (Auto) 0.62 H (0.11-0.59) K/uL Eos # (Auto) 0.10 (0-0.5) K/uL Baso # (Auto) 0.02 (0-0.2) K/uL PT 11.7 (9.0-12.0) Seconds INR 1.2 H (0.9-1.1) APTT 23.0 (21.0-31.0) Seconds PTT Ratio 0.8 Sodium 141 (136-145) mmol/L Potassium 4.0 (3.5-5.1) mmol/L Chloride 109 H (98-107) mmol/L Carbon Dioxide 22 (21-32) mmol/L Anion Gap 10.0 (3-11) BUN 22 H (7-18) mg/dl Creatinine 2.28 H (0.6-1.4) mg/dl Est Cr Clr Drug Dosing 30.5 ml/min Est GFR ( Amer) 31.6 Est GFR (Non-Af Amer) 27.3 BUN/Creatinine Ratio 9.5 L (10-20) Glucose 93 (70-99) mg/dl Calcium 9.3 (8.5-10.1) mg/dl Total Bilirubin 0.9 (0.2-1) mg/dl AST 23 (15-37) U/L ALT 24 (12-78) U/L Alkaline Phosphatase 137 H (45-117) U/L Troponin I 0.016 (0-0.045) ng/ml Total Protein 7.4 (6.4-8.2) gm/dl Albumin 3.7 (3.4-5.0) gm/dl Globulin 3.7 (2.5-4.0) gm/dl Albumin/Globulin Ratio 1.0 (0.9-2) Lipase 211 (73-393) U/L ECG Data Attestation: I personally reviewed and interpreted this ECG as follows: Indication: chest pain Rate (beats per minute): 71 Rhythm: normal sinus Findings: + other (normal interval, nonspecific lateral T-wave changes); no PVC, no ST depression and no ST elevation Blood Pressure Blood Pressure Findings: Normal blood pressure Blood Pressure Disposition: further management by hospitalist DIA Hunter Patient is a 74-year-old gentleman presenting today complaining of chest tightness substernal without significant shortness of breath. States occasionally gets a little bit dizzy with standing. Minimal now but comes and goes randomly. States compliance with home medications. Patient was seen and referred from primary care's office today. Was undergoing evaluation for possible shoulder surgery this coming week. Also relays a history of a infected right foot callus that his primary doctor started him on antibiotics refer. Patient was also noted to have some low blood pressures prior to arrival and blood pressure upon arrival here was less than 100 systolic. Benign abdomen. Denies other and infectious symptomatologies. Did review chest x-ray from the [facility] office today without large focal infiltrate and the patient again denies respiratory symptoms. Patient does have significant cardiac history and concerning that his symptoms may be cardiac in etiology. Patient declined repeat x-ray here. Basic labs are completed here without signs of significant anemia compared to previous. Patient has no significant neurological deficits at this time. The "infected callus "it is minimal at this point. Unsure of the exact etiology of his hypotension and given a small fluid bolus. Do not believe this represents acute sepsis. Given the patient's significant cardiac history did discuss with him staying in the hospital for further evaluation and management and cardiac monitoring. Does have some symptomatology is concerning for angina. Discussed with his bottom presser who also recommended this. Disc ussed with the patient and the hospitalist contacted for admission. Serial troponins and echocardiogram in the morning was recommended by cardiology. Impression & Plan Chest pain Discharge Plan Visit Data *Final* Discharge Date/Time: 03/29/19 22:34 Chief Complaint: Chest Pain Stated Complaint: LOW BLOOD PRESSURE, CHEST PAIN- CARDIAC HX ED Provider: Seth Hussein Discharge Problem: Chest pain Patient Disposition: Admitted As Inpatient Discharge Instructions Interventions: ED Discharge Assessment Last Done: 03/29/19 22:34 Discharge Problem: Chest pain Qualifiers: Chest pain type: unspecified Qualified Code(s): R07.9 - Chest pain, unspecified The monicoibe's documentation has been prepared under my direction and personally reviewed by me in its entirety. I confirm that the note above accurately reflect s all work, treatment, procedures, and medical decision making performed by me.
--- NOTE | 2019-03-30 00:23 | History and Physical Report ---
DATE OF ADMISSION: 03/29/2019 CHIEF COMPLAINT: Chest pain. HISTORY OF PRESENT ILLNESS: This is a 74-year-old male with past medical history significant for CAD status post stent, COPD, asthma, gout, nocturnal hypoxemia, hypertension, chronic kidney disease stage IV, abdominal aortic aneurysm, hypertension, GERD, vitamin B12 deficiency, Sepulveda's esophagus,herpes simplex infection of the penis, hip joint replacement status, neuropathy with anti-sulfatide antibodies, tobacco abuse, says quit smoking 1 month ago, anemia of chronic disease, history of prostate cancer, history of hemorrhoids, generalized anxiety disorder, presents with chest pain and dizziness. The patient is supposed to get right shoulder replacement surgery on 04/02/2019. He went to see his family doctor for preop and as he was complaining dizziness and chest pain and was having blood pressure on the borderline, he was advised to come to the ER. The patient says he is getting dizziness since last 1 month and when he stands he is feeling dizzy. Chest pain started about a week ago on and off, middle of the chest, sometimes sharp, sometimes pressure and achy like feeling, mild to moderate in severity, no radiation, not associated with nausea or sweating. The pain is more when he ambulates. It comes and goes on its own. His blood pressure was low in the PCP's office, with systolic blood pressure in 90s. In the Er his initial blood pressure was also in the 90s, but after fluid bolus, his systolic blood pressure improved to 110. Currently hemodynamically stable. He is saying lately he has some mild headaches, today also he has a mild headache. Vision is not that great so he is trying to see Ophthalmology. No sore throat, no fever, no chills. Has chronic smoker's cough. No shortness of breath, no nausea, no vomiting, no abdominal pain, no diarrhea or constipation, no blood in the stools or black stools. Normal bladder movements. No hematuria or burning micturition. No swelling in the legs. He has a callus in his right foot. He says he is doing meditation and puts weight on his foot. He is supposed to see Podiatry, but his PCP gave antibody which helped so he did not go, but today it looks like slightly there is a crack in the callus and possible mild infection and PCP started on Keflex today for 10 days and advised to see Podiatry. ALLERGIES: BENZOCAINE, CLINDAMYCIN, VITAMIN B12, TEA TREE OIL, CLOBETASOL,DOXYCYCLINE, PENICILLINS, BETADINE SOAP, FAMOTIDINE D3, PHENYLETHYLAMINE. PAST MEDICAL HISTORY: As mentioned above. PAST SURGICAL HISTORY: Cardiac angioplasty, stent placement, EGDs, IVC filter, IR venogram of the inferior vena cava, needle punch biopsy of prostate, placement of catheter in vena cava, radical prostate removal, revision of total hip joint surgery, shoulder surgery, bilateral shoulder replacement. MEDICATIONS: The patient is on Keflex 500 mg p.o. b.i.d., Oxybutynin 5 mg p.o. b.i.d., Combivent 1 puff 4 times a day p.r.n., Pepcid 20 mg p.o. daily, vitamin B12 injection once a month, Protonix 20 mg p.o. daily, Ativan 0.5 mg p.o. t.i.d. p.r.n., albuterol nebulization every 4 hours p.r.n., Brovana 15 mcg b.i.d., atorvastatin 80 mg p.o. daily, Imdur 60 mg p.o. daily, Toprol-XL 25 mg p.o. daily, azithromycin rescue kit, triamcinolone apply to affected area twice daily, Lyrica 25 mg p.o. t.i.d., Valtrex 1000 mg p.o. daily, allopurinol 300 mg p.o. daily, Pulmicort 2 times a day, Anusol-HC as needed, nitroglycerin 0.4 mg sublingual p.r.n., vitamin D 2000 units p.o. daily, oxygen 3 liters at bedtime, aspirin 81 mg p.o. daily, ferrous sulfate 325 mg p.o. daily, multivitamins 1 tablet daily. FAMILY HISTORY: Significant for mother had a throat cancer. Father had MA at age of 42. Brother had COPD. SOCIAL HISTORY: , lives with . Quit smoking about a month ago, smoked about 1 pack a day for 42 years. Alcohol occasional. No drug use. REVIEW OF SYMPTOMS: As per HPI. Rest of review of symptoms negative. PHYSICAL EXAMINATION: GENERAL: The patient is of moderate built, not in acute distress. VITAL SIGNS: Temperature 36.8, pulse 62, respirations 15, blood pressure when he came in was 97/62, currently 119/75, oxygen 96% room air. HEENT: No pallor, no icterus. Pupils equal, round, reactive to light. NECK: No JVD, no neck masses, no carotid bruit. CARDIOVASCULAR: S1, S2 heard, regular rate and rhythm. No murmur or gallop. RESPIRATORY SYSTEM: Normal AP diameter. No accessory muscle use. No wheezing, no crackles. ABDOMEN: Soft, bowel sounds present. Nontender. No distention. CENTRAL NERVOUS SYSTEM: Cranial nerves II-XII grossly intact. Nonfocal. EXTREMITIES: No edema, no erythema. Callus seen on the right dorsal aspect of the foot. Mild plaque seen, no erythema. No drainage seen. LABORATORIES: WBC 6.9, hemoglobin 11.8, hematocrit 34.4, platelets 147. PT 11.7, INR 1.2. APTT 23. Sodium 141, potassium 4, chloride 109, bicarbonate 22, BUN 22, creatinine 2.2, serum glucose 93, calcium 9.3, total bilirubin 0.9, AST 23, ALT 24, alkaline phosphatase 137, troponin 0.016, lipase 211. EKG: Normal sinus rhythm, rate of 71, No acute ST changes, no significant change from previous EKG. ASSESSMENT AND PLAN: This is a 74-year-old male who presents with chest pain and dizziness. 1. Chest pain, history of coronary artery disease status post stent. Initial EKG and troponin negative. Pain has been for 1 week. We will continue his home medication of aspirin, statin and his Imdur and Toprol-XL as blood pressure allows and monitor in tele floor. Follow serial cardiac enzymes, echocardiogram and consult Cardiology for further recommendation. We will keep n.p.o. after midnight for any procedure if necessary. 2. Dizziness and hypotension. Going on for month, could be from the hypotension. Blood pressure improved with the fluid bolus and we will continue his IV fluids until morning and monitor the blood pressure. . Also follow echocardiogram. Blood pressure medications adjustments as per Cardiology. We will continue current home medication with holding parameters. 3. Acute kidney injury and chronic kidney disease stage III to IV, baseline creatinine around 2, currently with creatinine of 2.2, getting fluids as above. We will follow the labs in a.m. 4. Hyperlipidemia, continue statin. 5. Gout. Continue allopurinol. 6. Chronic obstructive pulmonary disease and asthma. Continue home inhalers and nebs p.r.n. 7. Gastroesophageal reflux disease. Continue PPI. 8. Anemia of chronic disease. Hemoglobin 11.8. continue his iron tablets. 9. Hypertension. Currently blood pressure on the lower side, getting fluid Toprol-XL and Imdur with holding parameters.Will Monitor. 10. History of prostate cancer status post radical prostatectomy. 11. Right foot callus, possible mild infection. Continue Keflex as ordered by PCP today and follow with Podiatry. 12. Deep venous thrombosis prophylaxis, SCDs for now. 13. Disposition: Closely monitor and observe in tele floor. Level 1, full code. MTDD
[2019-03-30 06:03] LABS: Basophils # (auto) 0.02 K/uL (0-0.2); Basophils % (auto) 0.3 %; Eosinophils # (auto) 0.17 K/uL (0-0.5); Eosinophils % (auto) 2.7 %; Hematocrit (blood only) 33.7 % (42-52); Hemoglobin 11.4 g/dL (14.0-18.0); Immature Granulocytes # (auto) 0.03 K/uL (0.00-0.02); Immature Granulocytes % (auto) 0.5 %; Lymphocytes # (auto) 1.15 K/uL (1.2-3.4); Mean Corpuscular Hgb Conc 33.8 g/dL (32-36); Mean Corpuscular Volume 99.4 fL (80-100); Mean Platelet Volume 10.9 fL (7.4-10.4); Neutrophils # (auto) 4.32 K/uL (1.4-6.5); Neutrophils % (auto) 67.5 %; Platelet Count 143 K/uL (130-400); RDW Coefficient of Variation 14.6 % (11.5-14.5); RDW Standard Deviation 52.3 fL (36.4-46.3); Red Blood Count 3.39 M/uL (4.7-6.1); White Blood Count 6.39 K/uL (4.8-10.8)
[2019-03-30 06:45] LABS: BUN Creatinine Ratio 11.6 (10-20); Calcium 8.9 mg/dl (8.5-10.1); Creatinine Clr Calc Pharmacy 35.6 ml/min; Est GFR (African American) 38.2; Est GFR (Non-African American) 32.9; Magnesium 1.5 mg/dl (1.8-2.4); Potassium 3.7 mmol/L (3.5-5.1)
[2019-03-30] MEDS: MAGNESIUM SULFATE / D5W 1 GM/100 ML BAG IV SCH ×2 (07:29→08:29)
[2019-03-30] MEDS: cephALEXin 250 MG CAP PO SCH (07:38)
[2019-03-30] MEDS ORDERED: BUDESONIDE 0.5 MG/2 ML VIAL (PULMICORT) INH SCH (08:00)
[2019-03-30] MEDS ORDERED: ARFORMOTEROL TART 15MCG/2ML VIAL INH SCH (08:00)
[2019-03-30] MEDS ORDERED: FAMOTIDINE 20 MG TAB PO SCH (09:00)
[2019-03-30] MEDS ORDERED: MAGNESIUM OXIDE 400 MG TAB PO SCH (09:00)
[2019-03-30] MEDS ORDERED: TRIAMCINOLONE ACET 0.1% CR 15 GM TUBE TOP SCH (09:00)
[2019-03-30] MEDS ORDERED: OXYBUTYNIN CHLORIDE 5 MG TAB PO SCH (09:00)
[2019-03-30] MEDS ORDERED: ASPIRIN 81 MG ECTAB PO SCH (09:00)
[2019-03-30] MEDS ORDERED: ALLOPURINOL 300 MG TAB PO SCH (09:00)
[2019-03-30] MEDS ORDERED: CEROVITE ADV FORMULA TAB PO SCH (09:00)
[2019-03-30] MEDS ORDERED: PANTOprazole 40 MG TAB PO SCH ×2 (09:00)
[2019-03-30] MEDS ORDERED: METOPROLOL SUCC 25MG EXT REL TAB PO SCH (09:00)
[2019-03-30] MEDS ORDERED: ISOSORBIDE MONO EXTENDED REL 60 MG TABCR PO SCH (09:00)
[2019-03-30] MEDS ORDERED: PREGABALIN 25 MG CAP PO SCH (09:00)
[2019-03-30] MEDS ORDERED: Nursing to Pharmacy Communication ONE (10:00)
[2019-03-30] MEDS ORDERED: METOPROLOL TARTRATE 1 MG/ML VIAL IV ONE (11:30)
[2019-03-30] MEDS ORDERED: ATROPINE SULFATE 0.1 MG/ML 10ML SYR IV ONE (11:30)
[2019-03-30] MEDS ORDERED: DOBUTamine HCL 12.5 MG/ML 20 ML VIAL IV ONE (11:30)
--- NOTE | 2019-03-30 12:39 | Hospitalist Progress Note ---
Date of Service March 30, 2019 Assessment & Plan (1) Chest pain: This is a 74-year-old male with past medical history significant for CAD status post stent, COPD, asthma, gout, nocturnal hypoxemia, hypertension, chronic kidney disease stage IV, abdominal aortic aneurysm, hypertension, GERD, vitamin B12 deficiency, Sepulveda's esophagus,herpes simplex infection of the penis, hip joint replacement status, neuropathy with anti-sulfatide antibodies, tobacco abuse, says quit smoking 1 month ago, anemia of chronic disease, history of prostate cancer, history of hemorrhoids, generalized anxiety disorder, presents with chest pain and dizziness. The patient is supposed to get right shoulder replacement surgery on 04/02/2019. He went to see his family doctor for preop and as he was complaining dizziness and chest pain Chest Pain History of coronary artery disease with stent in the past -troponins negative x 4 -03/30/19 resting echocardiogram EF 55 to 60% with grade 1 diastolic dysfunction, moderate concentric left ventricular hypertrophy -03/30/19 stress echocardiogram performed and negative for ischemia Dizziness/Hypotension likely from dehydration -blood pressure on presentation 92/57 on 03/29/19 -blood pressure improved with IV fluids -patient reports less oral intake recently, cardiology service Dr. Casanova recommended to continue same home dose of Imdur, also no changes to home dose metoprolol Acute kidney injury and chronic kidney disease stage III to IV -baseline creatinine around 2 and presented with creatinine of 2.28 -after IV fluids creatinine downtrended 1.95 Hypomagnesemia -serum magnesium 1.5 -patient received magnesium IV x 2 grams and oral magnesium 400 mg on 03/30/19 -patient to be discharged with oral magnesium supplements Right foot callus (possible mild skin infection) - Continue Keflex as ordered by PCP -patient has supplies at home Anemia of chronic disease -patient also has card listing blood antibodies for Anti S, Anti-jk (b), and antisulfatide -hemoglobin stable Other medical issues continue statin. continue allopurinol for history of gout continue home inhalers/nebulizers as needed for Chronic obstructive pulmonary disease and asthma - no active respiratory flare on this hospital presentation continue home dose acid reflux medication for Gastroesophageal reflux disease. History of prostate cancer status post radical prostatectomy. Discharge Diagnosis chest pain on this presentation is non cardiac chest pain, history of coronary artery disease status post stent in the past, dizziness and hypotension likely from dehydration, acute kidney injury on chronic kidney disease, hypomagnesemia, Right foot callus (possible mild skin infection) Discharge to home Patient encouraged to drink water and eat meals. Patient should take magnesium 400 mg daily. Patient should have serum magnesium levels checked before and after planned surgery on 04/02/19 Pre-admit 04/02/2019 [facility] 04/09/2019 9:45 AM Provider Stanislav Nieves DO Department Orthopaedics [facility] 04/18/2019 1:00 PM Provider Daina Lopez DO Department Gastroenterology, [facility] 04/19/2019 1:40 PM Provider Jacob Jones MD Department General Internal Medicine [facility] Subjective Patient returned from stress echocardiogram. Patient feels comfortable. no chest pain. no shortness of breath. no palpitations. no dizziness. right foot callus on right pedal surface with minimal erythema Physical Exam Constitutional: WD/WN, vitals as above Eyes: PERRL, conjunctivae normal, anicteric sclerae EOM intact bilaterally ENMT: external ear and nose normal, oropharynx normal Neck: trachea midline, no thyromegaly Respiratory: normal respiratory effort, lungs clear to auscultation Cardiovascular: Rate/Rhythm: regular rhythm and + bradycardic Gastrointestinal (Abdomen): normal bowel sounds, soft, nontender, no hepatosplenomegaly Musculoskeletal: Head/Neck/Chest: normocephalic and head atraumatic Skin: right foot callus on right pedal surface with minimal erythema Neurologic: PERRL, EOMI, accommodation nl, no face palsy, no dysarthria CN's II-XI intact bilaterally Psychiatric: A+Ox3, euthymic affect Results & Data Vital Signs (Past 12 Hours) Vital Signs Temp Pulse Resp BP Pulse Ox 03/30/19 07:08 36.8 C 57 L 18 152/92 H 100 03/30/19 07:06 63 16 94 03/30/19 03:41 36.4 C L 54 L 16 145/81 H 94 (1) Chest pain Chest pain type: unspecified Qualified Code(s): R07.9 - Chest pain, unspecified
--- NOTE | 2019-03-30 13:08 | Discharge Summary ---
Date of Service March 30, 2019 Admission HPI Per Admitting Provider CHIEF COMPLAINT: Chest pain. HISTORY OF PRESENT ILLNESS: This is a 74-year-old male with past medical history significant for CAD status post stent, COPD, asthma, gout, nocturnal hypoxemia, hypertension, chronic kidney disease stage IV, abdominal aortic aneurysm, hypertension, GERD, vitamin B12 deficiency, Sepulveda's esophagus,herpes simplex infection of the penis, hip joint replacement status, neuropathy with anti-sulfatide antibodies, tobacco abuse, says quit smoking 1 month ago, anemia of chronic disease, history of prostate cancer, history of hemorrhoids, generalized anxiety disorder, presents with chest pain and dizziness. The patient is supposed to get right shoulder replacement surgery on 04/02/2019. He went to see his family doctor for preop and as he was complaining dizziness and chest pain and was having blood pressure on the borderline, he was advised to come to the ER. The patient says he is getting dizziness since last 1 month and when he stands he is feeling dizzy. Chest pain started about a week ago on and off, middle of the chest, sometimes sharp, sometimes pressure and achy like feeling, mild to moderate in severity, no radiation, not associated with nausea or sweating. The pain is more when he ambulates. It comes and goes on its own. His blood pressure was low in the PCP's office, with systolic blood pressure in 90s. In the Er his initial blood pressure was also in the 90s, but after fluid bolus, his systolic blood pressure improved to 110. Currently hemodynamically stable. He is saying lately he has some mild headaches, today also he has a mild headache. Vision is not that great so he is trying to see Ophthalmology. No sore throat, no fever, no chills. Has chronic smoker's cough. No shortness of breath, no nausea, no vomiting, no abdominal pain, no diarrhea or constipation, no blood in the stools or black stools. Normal bladder movements. No hematuria or burning micturition. No swelling in the legs. He has a callus in his right foot. He says he is doing meditation and puts weight on his foot. He is supposed to see Podiatry, but his PCP gave antibody which helped so he did not go, but today it looks like slightly there is a crack in the callus and possible mild infection and PCP started on Keflex today for 10 days and advised to see Podiatry. ALLERGIES: BENZOCAINE, CLINDAMYCIN, VITAMIN B12, TEA TREE OIL, CLOBETASOL,DOXYCYCLINE, PENICILLINS, BETADINE SOAP, FAMOTIDINE D3, PHENYLETHYLAMINE. PAST MEDICAL HISTORY: As mentioned above. PAST SURGICAL HISTORY: Cardiac angioplasty, stent placement, EGDs, IVC filter, IR venogram of the inferior vena cava, needle punch biopsy of prostate, placement of catheter in vena cava, radical prostate removal, revision of total hip joint surgery, shoulder surgery, bilateral shoulder replacement. MEDICATIONS: The patient is on Keflex 500 mg p.o. b.i.d., Oxybutynin 5 mg p.o. b.i.d., Combivent 1 puff 4 times a day p.r.n., Pepcid 20 mg p.o. daily, vitamin B12 injection once a month, Protonix 20 mg p.o. daily, Ativan 0.5 mg p.o. t.i.d. p.r.n., albuterol nebulization every 4 hours p.r.n., Brovana 15 mcg b.i.d., atorvastatin 80 mg p.o. daily, Imdur 60 mg p.o. daily, Toprol-XL 25 mg p.o. daily, azithromycin rescue kit, triamcinolone apply to affected area twice daily, Lyrica 25 mg p.o. t.i.d., Valtrex 1000 mg p.o. daily, allopurinol 300 mg p.o. daily, Pulmicort 2 times a day, Anusol-HC as needed, nitroglycerin 0.4 mg sublingual p.r.n., vitamin D 2000 units p.o. daily, oxygen 3 liters at bedtime, aspirin 81 mg p.o. daily, ferrous sulfate 325 mg p.o. daily, multivitamins 1 tablet daily. FAMILY HISTORY: Significant for mother had a throat cancer. Father had HI at age of 42. Brother had COPD. SOCIAL HISTORY: , lives with . Quit smoking about a month ago, smoked about 1 pack a day for 42 years. Alcohol occasional. No drug use. REVIEW OF SYMPTOMS: As per HPI. Rest of review of symptoms negative. Admission Exam Per Admitting Provider PHYSICAL EXAMINATION: GENERAL: The patient is of moderate built, not in acute distress. VITAL SIGNS: Temperature 36.8, pulse 62, respirations 15, blood pressure when he came in was 97/62, currently 119/75, oxygen 96% room air. HEENT: No pallor, no icterus. Pupils equal, round, reactive to light. NECK: No JVD, no neck masses, no carotid bruit. CARDIOVASCULAR: S1, S2 heard, regular rate and rhythm. No murmur or gallop. RESPIRATORY SYSTEM: Normal AP diameter. No accessory muscle use. No wheezing, no crackles. ABDOMEN: Soft, bowel sounds present. Nontender. No distention. CENTRAL NERVOUS SYSTEM: Cranial nerves II-XII grossly intact. Nonfocal. EXTREMITIES: No edema, no erythema. Callus seen on the right dorsal aspect of the foot. Mild plaque seen, no erythema. No drainage seen. Principal Diagnosis chest pain on this presentation is non cardiac chest pain, history of coronary artery disease status post stent in the past, dizziness and hypotension likely from dehydration, acute kidney injury on chronic kidney disease, hypomagnesemia, Right foot callus (possible mild skin infection) Discharge Exam Constitutional WD/WN, vitals as above Eyes PERRL, conjunctivae normal, anicteric sclerae EOM intact bilaterally ENMT external ear and nose normal, oropharynx normal Neck trachea midline, no thyromegaly Respiratory normal respiratory effort, lungs clear to auscultation Cardiovascular Rate/Rhythm: regular rhythm and + bradycardic Gastrointestinal (Abdomen) normal bowel sounds, soft, nontender, no hepatosplenomegaly Musculoskeletal Head/Neck/Chest: normocephalic and head atraumatic Neurologic PERRL, EOMI, accommodation nl, no face palsy, no dysarthria CN's II-XI intact bilaterally Psychiatric A+Ox3, euthymic affect Discharge Data Allergies Allergy/AdvReac Type Severity Reaction Status Date / Time benzocaine Allergy Severe SLOUGHING Verified 03/29/19 19:59 OF SKIN clindamycin Allergy Intermediate RASH Verified 03/29/19 19:59 cyanocobalamin (vitamin B12) Allergy Intermediate Rash Verified 03/29/19 19:59 clobetasol Allergy Mild ITCHING Verified 03/29/19 19:59 doxycycline Allergy Mild RASH Verified 03/29/19 19:59 Penicillins Allergy Mild HIVES Verified 03/29/19 19:59 povidone-iodine Allergy Mild Hives Verified 03/29/19 19:59 [From Betadine] soap [From Betadine] Allergy Mild Hives Verified 03/29/19 19:59 tea tree Allergy Mild ITCHING Verified 03/29/19 19:59 Phenylethylamine Allergy Mild ITCHING Uncoded 03/29/19 19:59 Consultations 03/29/19 21:00 ED Decision to Admit Stat 03/30/19 08:00 Consult Cardiology Routine Hospital Course (1) Chest pain: This is a 74-year-old male with past medical history significant for CAD status post stent, COPD, asthma, gout, nocturnal hypoxemia, hypertension, chronic kidney disease stage IV, abdominal aortic aneurysm, hypertension, GERD, vitamin B12 deficiency, Sepulveda's esophagus,herpes simplex infection of the penis, hip joint replacement status, neuropathy with anti-sulfatide antibodies, tobacco abuse, says quit smoking 1 month ago, anemia of chronic disease, history of prostate cancer, history of hemorrhoids, generalized anxiety disorder, presents with chest pain and dizziness. The patient is supposed to get right shoulder replacement surgery on 04/02/2019. He went to see his family doctor for preop and as he was complaining dizziness and chest pain Chest Pain History of coronary artery disease with stent in the past -troponins negative x 4 -03/30/19 resting echocardiogram EF 55 to 60% with grade 1 diastolic dysfunction, moderate concentric left ventricular hypertrophy -03/30/19 stress echocardiogram performed and negative for ischemia Dizziness/Hypotension likely from dehydration -blood pressure on presentation 92/57 on 03/29/19 -blood pressure improved with IV fluids -patient reports less oral intake recently, cardiology service Dr. Casanova recommended to continue same home dose of Imdur, also no changes to home dose metoprolol Acute kidney injury and chronic kidney disease stage III to IV -baseline creatinine around 2 and presented with creatinine of 2.28 -after IV fluids creatinine downtrended 1.95 Hypomagnesemia -serum magnesium 1.5 -patient received magnesium IV x 2 grams and oral magnesium 400 mg on 03/30/19 -patient to be discharged with oral magnesium supplements Right foot callus (possible mild skin infection) - Continue Keflex as ordered by PCP -patient has supplies at home Anemia of chronic disease -patient also has card listing blood antibodies for Anti S, Anti-jk (b), and ant isulfatide -hemoglobin stable Other medical issues continue statin. continue allopurinol for history of gout continue home inhalers/nebulizers as needed for Chronic obstructive pulmonary disease and asthma - no active respiratory flare on this hospital presentation continue home dose acid reflux medication for Gastroesophageal reflux disease. History of prostate cancer status post radical prostatectomy. Discharge Diagnosis chest pain on this presentation is non cardiac chest pain, history of coronary artery disease status post stent in the past, dizziness and hypotension likely from dehydration, acute kidney injury on chronic kidney disease, hypomagnesemia, Right foot callus (possible mild skin infection) Discharge to home Patient encouraged to drink water and eat meals. Patient should take magnesium 400 mg daily. Patient should have serum magnesium levels checked before and after planned surgery on 04/02/19 Pre-admit 04/02/2019 [facility] 04/09/2019 9:45 AM Provider Stanislav Nieves DO Department Orthopaedics [facility] 04/18/2019 1:00 PM Provider Daina Lopez DO Department Gastroenterology, [facility] 04/19/2019 1:40 PM Provider Jacob Jones MD Department General Internal Medicine [facility] Total Time Total Time Spent Total Time Spent (In Minutes): 40 minutes Total Time Includes: Examination of the Patient, Discharge Planning, Medication Reconciliation and Communication With Other Providers Discharge Plan Discharge Items Patient Disposition: Home - Self-Care Reason For Visit: CHEST PAIN Discharge Diagnosis: chest pain on this presentation is non cardiac chest pain, history of coronary artery disease status post stent, dizziness and hypotension likely from dehydration, acute kidney injury on chronic kidney disease, hypomagnesemia, Right foot callus (possible mild skin infection) Condition: Good Discharge Goals: Improve disease control Activity: Resume your previous activity Non-emergency contact: Primary Care Provider and Specialist Call non-emergency contact if: you have any medication questions Follow-up/Referrals: Jacob Jones MD [Primary Care Provider] - Diet: Heart Healthy Addtl Provider Instructions: Discharge to home Patient encouraged to drink water and eat meals. Patient should take magnesium 400 mg daily. Patient should have serum magnesium levels checked before and after planned surgery on 04/02/19 Pre-admit 04/02/2019 [facility] 04/09/2019 9:45 AM Provider Stanislav Nieves DO Department Orthopaedics [facility] 04/18/2019 1:00 PM Provider Daina Lopez DO Department Gastroenterology, [facility] 04/19/2019 1:40 PM Provider Jacob Jones MD Department General Internal Medicine [facility] Prescriptions: New magnesium oxide 400 mg (241.3 mg magnesium) Tablet 400 mg PO QAM 10 Days Qty: 10 RF: 0 cephalexin 250 mg Capsule 500 mg PO BID 7 Days Qty: 28 RF: 0 Continued atorvastatin 80 mg tablet 80 mg PO QPM RF: 0 aspirin [Aspirin Low Dose] 81 mg Tablet,Delayed Release (Dr/Ec) 81 mg PO QAM RF: 0 triamcinolone acetonide 0.1 % cream 1 applic Topical BID RF: 0 pantoprazole 20 mg tablet,delayed release (DR/EC) 20 mg PO BID RF: 0 isosorbide mononitrate 60 mg tablet extended release 24 hr 60 mg PO QAM RF: 0 famotidine 20 mg tablet 20 mg PO QAM RF: 0 lorazepam 0.5 mg tablet 0.5 mg PO TID PRN (Reason: Anxiety) RF: 0 ferrous sulfate 325 mg (65 mg iron) Tablet 325 mg PO QPM RF: 0 nitroglycerin 0.4 mg tablet, sublingual 1 tab Sublingual UD PRN (Reason: Angina) RF: 0 docusate sodium 100 mg Capsule 100 mg PO BID PRN (Reason: Constipation) RF: 0 allopurinol 300 mg tablet 300 mg PO QAM RF: 0 metoprolol succinate 25 mg tablet extended release 24 hr 25 mg PO QAM RF: 0 oxybutynin chloride 5 mg tablet 5 mg PO BID RF: 0 cholecalciferol (vitamin D3) [Vitamin D3] 2,000 unit Capsule 2,000 unit PO QPM RF: 0 Combivent Respimat 20-100 mcg/actuation Mist 1 puff INHALATION QID PRN (Reason: Cough) RF: 0 albuterol sulfate 2.5 mg /3 mL (0.083 %) Solution For Nebulization 2.5 mg INHALATION Q4 PRN (Reason: Shortness Of Breath) RF: 0 valacyclovir [Valtrex] 1 gram Tablet 1,000 mg PO UD PRN (Reason: Cold Sores) RF: 0 budesonide [Pulmicort] 0.5 mg/2 mL Suspension For Nebulization 0.5 mg INHALATION BID RF: 0 Lyrica 25 mg Capsule 25 mg PO TID RF: 0 Brovana 15 mcg/2 mL Solution For Nebulization 15 mcg INHALATION BID RF: 0 azithromycin 250 mg Tablet PO DIRECTED PRN (Reason: RESCUE KIT) RF: 0 miconazole nitrate [Antifungal Cream (miconazole)] 2 % Cream 1 applic TOPICAL DAILY PRN (Reason: NEEDED) RF: 0 prednisone [Deltasone] 20 mg Tablet PO DIRECTED PRN (Reason: RESCUE KIT) RF: 0 aspirin [Aspir-81] 81 mg Tablet,Delayed Release (Dr/Ec) PO DAILY PRN (Reason: RESCUE KIT) RF: 0 hydrocortisone acetate [Anusol-HC] 25 mg Suppository 25 mg WA DAILY PRN (Reason: Hemorrhoids) RF: 0 Centrum Silver 0.4-300-250 mg-mcg-mcg Tablet 1 tab PO QAM RF: 0 Stand-Alone Forms: Call Back Authorization, [facility] Discharge Orders: Discharge Order (Routine); Ordered 03/30/19 Ordered By: Zeke Bravo Admission Data Admit Date/Time: 03/29/19 21:49 Attending Provider: Zeke Bravo Admit Provider: Ciro Kramer Primary Care Provider: Jacob Jones Other Providers: Ciro Kramer ; Alphonso Casanova ; Nikos Rodriguez ; José Miguel Joe ; Hai Canseco ; Jama Francois ; Vickey Small ; Vania Stout ; Jojo Zurita Service: Telemetry
--- NOTE | 2019-03-30 13:40 | Consultation Report ---
DATE OF CONSULTATION: 03/30/2019 INPATIENT CARDIOLOGY CONSULTATION CONSULTATION REQUESTED BY: ____. REASON FOR CONSULTATION: Chest pain. HISTORY OF PRESENT ILLNESS: Mr. Lorenzo is a very pleasant yet medically complex 74-year-old gentleman who follows with myself as an outpatient. He presented to [facility] Emergency Department on 03/29/2019 from his primary care physician, Dr. Jones's office, with complaints of chest pain and hypotension. The patient is currently being set up for shoulder surgery on 04/02/2019. However, he presented to Dr. Jones's office for preop risk and was complaining of chest discomfort. He states that for the last week or so, he started noticing a chest pressure sensation across his left sternal border. It will come and go, it did really follow any pattern and was not exacerbated by activity. He states it usually lasts about 10 minutes and would sometimes be associated with shortness of breath, but not always. He denied any associated nausea, radiation of the discomfort, diaphoresis, palpitations, lightheadedness, dizziness, or syncope. He states that this pain is different than the pain he had prior to his PCIs. He states his pain has resolved since being given nitroglycerin in the Emergency Department. Upon arrival at Dr. Jones's office, he was also found to be rather hypotensive. He received IV fluid hydration and is now hypertensive on his home medications and he states that he has not been drinking much water lately despite the weather becoming warmer. PAST SURGICAL HISTORY: 1. PCI to the RCA along with staged PCI to the LAD complicated by an IV pole falling on the patient's shoulder. 2. Upper endoscopy. 3. Prostate biopsy. 4. Radical prostatectomy. 5. Hip surgery. 6. Shoulder surgery. 7. IVC filter placement. MEDICAL ILLNESSES: 1. Coronary artery disease status post PCI to the RCA and LAD. 2. Chronic kidney disease. 3. History of tobacco abuse with resultant COPD. 4. GERD. 5. Abdominal aorta measuring 3 cm. 6. History of Sepulveda's esophagitis. 7. Polyneuropathy. 8. Hypertension. 9. Gout. 10. Anxiety. FAMILY HISTORY: Noncontributory. SOCIAL HISTORY: The patient is a lifelong smoker and continues to smoke. Denies any alcohol or recreational drug use. He lives at home by himself. REVIEW OF SYSTEMS: As per HPI, all other review of systems reviewed and negative at this time. ALLERGIES: 1. BENZOCAINE. 2. CLINDAMYCIN. 3. VITAMIN B12. 4. CLOBETASOL. 5. DOXYCYCLINE. 6. PENICILLIN. 7. BETADINE. 8. ____. MEDICATIONS AN OUTPATIENT: 1. Aspirin 81 mg daily. 2. Metoprolol succinate 25 mg daily. 3. Oxygen 3 liters at night. 4. Pulmicort. 5. Allopurinol. 6. Valtrex. 7. Lyrica. 8. Imdur 60 mg daily. 9. Atorvastatin 80 mg daily. 10. Ativan p.r.n. 11. Protonix b.i.d. 12. Ditropan daily. 13. Pepcid daily. PHYSICAL EXAMINATION: VITALS: Temperature 36.8, pulse 57, respiratory rate 12, blood pressure 152/92. GENERAL: Awake, alert, oriented x3, no acute distress, mildly anxious when talking about surgery. HEENT: Normocephalic, atraumatic. Pupils equal, round, reactive to light and accommodation. Extraocular muscles intact. Anicteric sclerae. Moist mucous membranes. NECK: No JVD, no bruit. CARDIOVASCULAR: Regular. Positive S4. Normal S1 and S2. No S3. No murmurs or rubs. PULMONARY: Clear to auscultation bilaterally. No rales, rhonchi, or wheezing. ABDOMEN: Bowel sounds x4, soft. No rebound, guarding, or tenderness. No organomegaly. EXTREMITIES: No clubbing, cyanosis or edema, +2 pedal pulses bilaterally. SKIN: Warm and dry. TEST RESULTS: A 2D echocardiogram was read as normal LV chamber size with moderate concentric LVH, normal LV systolic function, EF 55% to 60%. No segmental left ventricular wall motion abnormalities are noted. Grade 1 diastolic dysfunction, mild aortic regurgitation, mild aortic root enlargement, mild left atrial enlargement. Dobutamine stress echocardiogram was nonischemic, no arrhythmias, normal heart rate and blood pressure response to dobutamine. IMPRESSION: 1. Chest pain with nonischemic dobutamine stress echocardiogram, likely secondary to anxiety. 2. Hypovolemic hypotension resolved with IV fluid resuscitation. 3. Coronary artery disease with PCI to the RCA and LAD, stable. 4. Shoulder injury scheduled for surgery on 04/02/2019. RECOMMENDATIONS: It was my pleasure to see Mr. Lorenzo in consultation today. Given the fact that stress test was nonischemic and he responded well to IV fluids, I believe his chest pain was most likely secondary to anxiety about the upcoming surgery and I do not believe that surgery needs to be postponed. So at this time, his risk as previously discussed, a moderate risk with approximately less than 5% risk of perioperative cardiovascular event. He states that he is still interested in going forward with the surgery and I would recommend not delaying it given the fact it has been delayed for so long while he has been on dual antiplatelet therapy. So the patient will be discharged home today and I will make sure that orthopedic surgery has a copy of my consult today. No other medication changes will be made. It is okay to discharge the patient to home today.
[2019-03-30] MEDS ORDERED: FERROUS SULFATE 325 MG TAB PO SCH (21:00)
[2019-03-30] MEDS ORDERED: ATORVASTATIN 40 MG TAB PO SCH (21:00)
[2019-03-30] MEDS ORDERED: CHOLECALCIFEROL 1,000 UNITS TAB PO SCH (21:00)
[2019-03-31] MEDS ORDERED: MAGNESIUM OXIDE 400 MG TAB PO SCH (09:00)
== END 2019-03-30 13:37 | disposition home or self-care (01) ==
LOC: 2S 18:33 → ED 18:33 → 2S 22:34

== ENCOUNTER 2019-04-13 22:28 | Inpatient (IN) ==
[2019-04-13] MEDS ORDERED: NITROGLYCERIN SL 0.4 MG/TAB TAB ONE ×2 (23:15→23:17)
[2019-04-13] MEDS ORDERED: NITROGLYCERIN SL 0.4 MG/TAB TAB SL PRN (23:17)
[2019-04-13 23:28] LABS: Basophils # (auto) 0.02 K/uL (0-0.2); Basophils % (auto) 0.3 %; Eosinophils # (auto) 0.12 K/uL (0-0.5); Eosinophils % (auto) 1.7 %; Hematocrit (blood only) 35.6 % (42-52); Hemoglobin 12.1 g/dL (14.0-18.0); Immature Granulocytes # (auto) 0.03 K/uL (0.00-0.02); Immature Granulocytes % (auto) 0.4 %; Lymphocytes # (auto) 1.15 K/uL (1.2-3.4); Lymphocytes % (auto) 16.4 %; Mean Corpuscular Volume 102.9 fL (80-100); Mean Platelet Volume 10.9 fL (7.4-10.4); Monocytes # (auto) 0.67 K/uL (0.11-0.59); Monocytes % (auto) 9.6 %; Neutrophils # (auto) 5.01 K/uL (1.4-6.5); Neutrophils % (auto) 71.6 %; Platelet Count 154 K/uL (130-400); RDW Coefficient of Variation 14.4 % (11.5-14.5); RDW Standard Deviation 53.8 fL (36.4-46.3); Red Blood Count 3.46 M/uL (4.7-6.1)
[2019-04-13 23:35] LABS: Alanine Aminotransferase 27 U/L (12-78); Albumin Level 3.7 gm/dl (3.4-5.0); Aspartate Aminotransferase 26 U/L (15-37); BUN Creatinine Ratio 10.2 (10-20); Blood Urea Nitrogen 21 mg/dl (7-18); Calcium 9.3 mg/dl (8.5-10.1); Carbon Dioxide 26 mmol/L (21-32); Chloride 110 mmol/L (98-107); Creatinine Clr Calc Pharmacy 33.8 ml/min; Est GFR (African American) 35.9; Glucose 89 mg/dl (70-99); Potassium 4.3 mmol/L (3.5-5.1); Sodium 142 mmol/L (136-145)
[2019-04-13 23:40] LABS: Alkaline Phosphatase 180 U/L (45-117); Bilirubin,Total 0.5 mg/dl (0.2-1); Globulin 3.7 gm/dl (2.5-4.0); Total Protein 7.4 gm/dl (6.4-8.2); Troponin I < 0.015 ng/ml (0-0.045)
[2019-04-14 00:49] LABS: Partial Thromboplastin Ratio 1.1
[2019-04-14 00:56] LABS: Magnesium 1.7 mg/dl (1.8-2.4)
[2019-04-14] MEDS ORDERED: SODIUM CHLORIDE 0.45 % 1,000 ML IV STA ×2 (02:21→03:44)
--- NOTE | 2019-04-14 02:40 | History & Physical Report ---
Date of Service April 14, 2019 Assessment & Plan (1) Chest pain: Possible unstable angina History CAD status post stenting History of PVD as per records Hypertension, BP on the lower side after nitroglycerin administration at the ER Hyperlipidemia on statin Rx chronic respiratory failure secondary to COPD on home O2 at night, no acute lung issues currently past tobacco abuse CRI, creatinine at baseline chronic anemia secondary to CKD, hemoglobin at baseline prostate cancer status post surgery OBS PCU Continue aspirin, beta-sabi, statin meds Follow troponin, IV heparin if with subsequent troponin elevation Cardiology consult RE unstable angina DVT prophylaxis. Heparin subcu Full code History of Present Illness Chief Complaint: Chest pain Primary Care Provider: Jacob Jones MD History obtained from patient and records. Medical history significant for chronic respiratory failure secondary to COPD on home O2 at night, past tobacco abuse, CAD status post stenting, hx PVD, hypertension, hyperlipidemia, chronic anemia (baseline hemoglobin 11-12), chronic renal insufficiency (baseline creatinine 2), gout, HSV, prostate cancer status post surgery. Recent confinement 2 weeks ago for chest pain deemed noncardiac. Stress test was negative for ischemia. The last 3 days patient noted intermittent squeezing chest tightness episodes similar to anginal attacks intermittent relief with aspirin. No shortness of breath, no diaphoreses. Patient does not check blood pressure at home. Patient eventually ran out of nitro sublingual tablets. At the ER, chest discomfort relieved by nitroglycerin administration. Medical History as above Surgical History : Prostatectomy, hip surgery, shoulder surgery, IVC filter placement Family History : Heart disease, COPD, throat cancer Personal/Social history : Past tobacco abuse, occasional EtOH intake, retired [employer] Allergies Allergy/AdvReac Type Severity Reaction Status Date / Time benzocaine Allergy Severe SLOUGHING Verified 04/14/19 01:54 OF SKIN clindamycin Allergy Intermediate RASH Verified 04/14/19 01:54 cyanocobalamin (vitamin B12) Allergy Intermediate Rash Verified 03/29/19 19:59 clobetasol Allergy Mild ITCHING Verified 04/14/19 01:54 doxycycline Allergy Mild RASH Verified 04/14/19 01:54 Penicillins Allergy Mild HIVES Verified 04/14/19 01:54 povidone-iodine Allergy Mild Hives Verified 04/14/19 01:54 [From Betadine] soap [From Betadine] Allergy Mild Hives Verified 04/14/19 01:54 tea tree Allergy Mild ITCHING Verified 04/14/19 01:54 Phenylethylamine Allergy Mild ITCHING Uncoded 04/14/19 01:54 Home Medications Home Medications Medication Instructions Recorded Confirmed Type Combivent Respimat 1 puff INHALATION QID PRN 06/14/18 04/14/19 History allopurinol 300 mg PO QAM 06/14/18 04/14/19 History aspirin [Aspirin Low Dose] 81 mg PO UD PRN MDD ] 06/14/18 04/14/19 History atorvastatin 80 mg PO QPM 06/14/18 04/14/19 History cholecalciferol (vitamin D3) 2,000 unit PO QPM 06/14/18 04/14/19 History [Vitamin D3] docusate sodium 100 mg PO BID PRN 06/14/18 04/14/19 History famotidine 20 mg PO QAM 06/14/18 04/14/19 History ferrous sulfate 325 mg PO QPM 06/14/18 04/14/19 History isosorbide mononitrate 60 mg PO QAM 06/14/18 04/14/19 History lorazepam 0.5 mg PO TID PRN 06/14/18 04/14/19 History metoprolol succinate 25 mg PO QAM 06/14/18 04/14/19 History nitroglycerin 1 tab SUBLINGUAL UD PRN 06/14/18 04/14/19 History oxybutynin chloride 5 mg PO BID 06/14/18 04/14/19 History pantoprazole 20 mg PO BID 06/14/18 04/14/19 History triamcinolone acetonide 1 applic TOPICAL BID 06/14/18 04/14/19 History Brovana 15 mcg INHALATION BID 01/07/19 04/14/19 History Lyrica 25 mg PO TID 01/07/19 04/14/19 History albuterol sulfate 2.5 mg INHALATION Q4 PRN 01/07/19 04/14/19 History budesonide [Pulmicort] 0.5 mg INHALATION BID 01/07/19 04/14/19 History valacyclovir [Valtrex] 1,000 mg PO UD PRN 01/07/19 04/14/19 History Centrum Silver 1 tab PO QAM 03/29/19 04/14/19 History aspirin [Aspir-81] 81 mg PO DAILY 03/29/19 04/14/19 History azithromycin 0 mg PO DIRECTED PRN 03/29/19 04/14/19 History hydrocortisone acetate [Anusol-HC] 25 mg GA DAILY PRN 03/29/19 04/14/19 History miconazole nitrate [Antifungal 1 applic TOPICAL DAILY PRN 03/29/19 04/14/19 History Cream (miconazole)] prednisone [Deltasone] 0 mg PO DIRECTED PRN 03/29/19 04/14/19 History cephalexin 250 mg PO DAILY 04/14/19 04/14/19 History magnesium oxide 400 mg PO DAILY 04/14/19 04/14/19 History Past Med/Surg History Medical History Gracie filter in place (Chronic) Coronary artery disease (Chronic) Recurrent genital herpes simplex (Chronic Unknown) COPD (chronic obstructive pulmonary disease) inhalers and nebulizers daily Prostate cancer sx Aortic aneurysm HERNANDEZ (acute kidney injury) (Acute) Unstable angina Anxiety Barretts esophagus Blood clotting disorder Chronic back pain Chronic kidney disease, stage 3 Diverticular disease GERD (gastroesophageal reflux disease) Gout Hearing deficit Hyperlipidemia Hypertension Myocardial Infarction 2016--follows with Dr. Casanova On home oxygen therapy 3-3.5L N/C at HS Osteoarthritis Sleep apnea oxygen at night Temporomandibular joint disorder Surgical History History of arthroscopic knee surgery History of bilateral cataract extraction History of cardiac cath x5--last 2016 History of colonoscopy History of esophagogastroduodenoscopy (EGD) History of heart artery stent multiple--last 2017 History of hernia repair epigastric History of left shoulder replacement History of lumbar surgery History of mandibular surgery tmj repair History of prostate biopsy malignant History of prostatectomy History of right inguinal hernia repair History of right shoulder replacement History of tooth extraction all teeth removed Status post correction of deviated nasal septum Status post total hip replacement, bilateral Family History Other Family history not known due to adoption Social History Preferred Language: Spanish Communication Ability: Effective 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: No Beliefs That Will Affect Care: None Current Living Situation: Spouse Current Living Situation Comment: Lives with and son Other Information That Helps Us Care for You: No Feels Safe at Home: Yes Safety Concerns: Feels Safe At This Time Smoking Status: Current every day smoker Tobacco Type: cigars Cigarettes Per Day: 1 Do You Dip or Chew Tobacco: No Second Hand Exposure: No Tobacco Cessation Education Requested by Patient: No Hx Alcohol Use: Yes Alcohol type: beer Hx Substance Use: No Review of Systems Review of Systems: As per HPI, all 10 systems reviewed, all other ROS negative Physical Exam Physical Exam: GENERAL: Comfortable, pleasant, obese, no respiratory distress SKIN: Pallor , warm HEENT: Pale palpebral conjunctivae, no ptosis, edentulous, moist buccal mucosa NECK : Supple, short, no tenderness CHEST : CTA, no tenderness HEART : Bradycardic, no obvious murmurs ABDOMEN: Some distention, nontender EXTREMITIES : No LE swelling/tenderness, incisional scar right shoulder, no other conspicuous deformities noted NEUROLOGIC : Coherent, chronic upper lip asymmetry , no other gross focality Results & Data Vital Signs (Past 12 Hours) Vital Signs Temp Pulse Pulse Resp BP BP Pulse Ox 04/14/19 01:29 68 18 98/82 L 96 04/14/19 00:31 57 L 20 138/87 94 04/13/19 23:24 57 L 20 130/87 95 04/13/19 22:52 95 04/13/19 22:50 58 L 20 155/105 H 95 04/13/19 22:31 36.3 C L 57 L 22 139/77 97 Laboratory Results Laboratory Results WBC 7.00 K/uL (4.8-10.8) 04/13/19 22:57 RBC 3.46 M/uL (4.7-6.1) L 04/13/19 22:57 Hgb 12.1 g/dL (14.0-18.0) L 04/13/19 22:57 Hct 35.6 % (42-52) L 04/13/19 22:57 MCV 102.9 fL (80-100) H 04/13/19 22:57 MCH 35.0 pg (25-34) H 04/13/19 22:57 MCHC 34.0 g/dL (32-36) 04/13/19 22:57 RDW Std Deviation 53.8 fL (36.4-46.3) H 04/13/19 22:57 RDW Coeff of Zoë 14.4 % (11.5-14.5) 04/13/19 22:57 Plt Count 154 K/uL (130-400) 04/13/19 22:57 MPV 10.9 fL (7.4-10.4) H 04/13/19 22:57 Immature Gran % (Auto) 0.4 % 04/13/19 22:57 Neut % (Auto) 71.6 % 04/13/19 22:57 Lymph % (Auto) 16.4 % 04/13/19 22:57 [place] % (Auto) 9.6 % 04/13/19 22:57 Eos % (Auto) 1.7 % 04/13/19 22:57 Baso % (Auto) 0.3 % 04/13/19 22:57 Immature Gran # (Auto) 0.03 K/uL (0.00-0.02) H 04/13/19 22:57 Neut # (Auto) 5.01 K/uL (1.4-6.5) 04/13/19 22:57 Lymph # (Auto) 1.15 K/uL (1.2-3.4) L 04/13/19 22:57 [place] # (Auto) 0.67 K/uL (0.11-0.59) H 04/13/19 22:57 Eos # (Auto) 0.12 K/uL (0-0.5) 04/13/19 22:57 Baso # (Auto) 0.02 K/uL (0-0.2) 04/13/19 22:57 APTT 29.0 Seconds (21.0-31.0) 04/13/19 22:57 PTT Ratio 1.1 04/13/19 22:57 Sodium 142 mmol/L (136-145) 04/13/19 22:57 Potassium 4.3 mmol/L (3.5-5.1) 04/13/19 22:57 Chloride 110 mmol/L (98-107) H 04/13/19 22:57 Carbon Dioxide 26 mmol/L (21-32) 04/13/19 22:57 Anion Gap 6.0 (3-11) 04/13/19 22:57 BUN 21 mg/dl (7-18) H 04/13/19 22:57 Creatinine 2.05 mg/dl (0.6-1.4) H 04/13/19 22:57 Est Cr Clr Drug Dosing 33.8 ml/min 04/13/19 22:57 Est GFR ( Amer) 35.9 04/13/19 22:57 Est GFR (Non-Af Amer) 31.0 04/13/19 22:57 BUN/Creatinine Ratio 10.2 (10-20) 04/13/19 22:57 Glucose 89 mg/dl (70-99) 04/13/19 22:57 Calcium 9.3 mg/dl (8.5-10.1) 04/13/19 22:57 Magnesium 1.7 mg/dl (1.8-2.4) L 04/13/19 22:57 Total Bilirubin 0.5 mg/dl (0.2-1) 04/13/19 22:57 AST 26 U/L (15-37) 04/13/19 22:57 ALT 27 U/L (12-78) 04/13/19 22:57 Alkaline Phosphatase 180 U/L (45-117) H 04/13/19 22:57 Troponin I < 0.015 ng/ml (0-0.045) 04/13/19 22:57 Total Protein 7.4 gm/dl (6.4-8.2) 04/13/19 22:57 Albumin 3.7 gm/dl (3.4-5.0) 04/13/19 22:57 Globulin 3.7 gm/dl (2.5-4.0) 04/13/19 22:57 Albumin/Globulin Ratio 1.0 (0.9-2) 04/13/19 22:57 Lipase 180 U/L (73-393) 04/13/19 22:57 TSH 8.650 uIu/ml (0.300-4.500) H 04/13/19 22:57 Diagnostic Findings Chest x-ray as per my interpretation cardiomegaly EKG as per my interpretation : Rate 55, sinus bradycardia, LAD, LAFB, 1 AVB, T wave flattening inferior leads (1) Chest pain Chest pain type: unspecified Qualified Code(s): R07.9 - Chest pain, unspecified
[2019-04-14] MEDS ORDERED: ALBUT/IPRATROP 3MG/0.5MG NEB 3 ML VIAL NEB PRN (03:44)
[2019-04-14] MEDS ORDERED: PROMETHAZINE HCL 12.5 MG in SODIUM CHLORIDE 0.9% 50 ML IV PRN (03:44)
[2019-04-14] MEDS ORDERED: HYDROmorphone INJ 0.5 MG/0.5 ML SYR IV PRN (03:44)
[2019-04-14] MEDS ORDERED: DOCUSATE SODIUM 100 MG CAP PO PRN (03:44)
[2019-04-14] MEDS ORDERED: IPRATROPIUM BROMIDE/ALBUTEROL respimat INH INH PRN (03:44)
[2019-04-14] MEDS ORDERED: LORazepam 0.5 MG TAB PO PRN (03:44)
[2019-04-14] MEDS ORDERED: NITROGLYCERIN SL 0.4 MG/TAB TAB SL PRN (03:44)
[2019-04-14] MEDS ORDERED: TRAMADOL HCL 50 MG TABLET PO PRN (03:44)
[2019-04-14] MEDS ORDERED: MAGNESIUM SULFATE / D5W 1 GM/100 ML BAG IV ONE (03:44)
--- NOTE | 2019-04-14 05:14 | Emergency Department Note ---
Entered by Mark George acting as a scribe for History of Present Illness General Chief complaint: Chest Pain Stated complaint: CHEST PAIN- HX STENTS Time Seen by Provider: 04/13/19 23:00 Source: patient History of Present Illness Provider complaint: Chest pain Onset (ago): day(s) 3 Location: chest Radiation: non-radiation Severity: similar to prior episodes Pain Consistency: + intermittent Maximum Pain Intensity: 3 Relieved By: + medication (Nitro) Exacerbated By: + none Associated symptoms: + other (Positive dizziness); no nausea/vomiting and no shortness of breath The patient is a 74 year old male who presents to the Emergency Room with complaints of intermittent chest pain that started about 3 days ago. The patient reports that tonight when the episode occurred he was at his computer. The patient denies any shortness of breath or nausea during the episode, but he did get dizzy. The patient has an extensive cardiac history including a heart attack and stents placed on both the right and left side after numerous surgery complications. Prior to the procedure, the patient had 95% blockage on both sides. The patient states that for the past 3 days he has been using his Nitroglycerin for the pain because he notes the tightness in his chest feels similar to the symptoms he would experience before he had the stents put in. The patient notes that Nitroglycerin does help his symptoms. but he has run out. Since having the procedure done, the patient states he has had little episodes of chest pain. Currently, the patient still has the tightness, which he notes he would have taken Nitroglycerin for but he ran out after taking 2 tonight. The patient denies any abdominal pain. 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 Home Medications Home Medications Medication Instructions Recorded Confirmed Type Combivent Respimat 1 puff INHALATION QID PRN 06/14/18 04/14/19 History allopurinol 300 mg PO QAM 06/14/18 04/14/19 History aspirin [Aspirin Low Dose] 81 mg PO UD PRN MDD ] 06/14/18 04/14/19 History atorvastatin 80 mg PO QPM 06/14/18 04/14/19 History cholecalciferol (vitamin D3) 2,000 unit PO QPM 06/14/18 04/14/19 History [Vitamin D3] docusate sodium 100 mg PO BID PRN 06/14/18 04/14/19 History famotidine 20 mg PO QAM 06/14/18 04/14/19 History ferrous sulfate 325 mg PO QPM 06/14/18 04/14/19 History isosorbide mononitrate 60 mg PO QAM 06/14/18 04/14/19 History lorazepam 0.5 mg PO TID PRN 06/14/18 04/14/19 History metoprolol succinate 25 mg PO QAM 06/14/18 04/14/19 History nitroglycerin 1 tab SUBLINGUAL UD PRN 06/14/18 04/14/19 History oxybutynin chloride 5 mg PO BID 06/14/18 04/14/19 History pantoprazole 20 mg PO BID 06/14/18 04/14/19 History triamcinolone acetonide 1 applic TOPICAL BID 06/14/18 04/14/19 History Brovana 15 mcg INHALATION BID 01/07/19 04/14/19 History Lyrica 25 mg PO TID 01/07/19 04/14/19 History albuterol sulfate 2.5 mg INHALATION Q4 PRN 01/07/19 04/14/19 History budesonide [Pulmicort] 0.5 mg INHALATION BID 01/07/19 04/14/19 History valacyclovir [Valtrex] 1,000 mg PO UD PRN 01/07/19 04/14/19 History Centrum Silver 1 tab PO QAM 03/29/19 04/14/19 History aspirin [Aspir-81] 81 mg PO DAILY 03/29/19 04/14/19 History azithromycin 0 mg PO DIRECTED PRN 03/29/19 04/14/19 History hydrocortisone acetate [Anusol-HC] 25 mg CA DAILY PRN 03/29/19 04/14/19 History miconazole nitrate [Antifungal 1 applic TOPICAL DAILY PRN 03/29/19 04/14/19 History Cream (miconazole)] prednisone [Deltasone] 0 mg PO DIRECTED PRN 03/29/19 04/14/19 History cephalexin 250 mg PO DAILY 04/14/19 04/14/19 History magnesium oxide 400 mg PO DAILY 04/14/19 04/14/19 History Allergies Allergy/AdvReac Type Severity Reaction Status Date / Time benzocaine Allergy Severe SLOUGHING Verified 04/14/19 01:54 OF SKIN clindamycin Allergy Intermediate RASH Verified 04/14/19 01:54 cyanocobalamin (vitamin B12) Allergy Intermediate Rash Verified 03/29/19 19:59 clobetasol Allergy Mild ITCHING Verified 04/14/19 01:54 doxycycline Allergy Mild RASH Verified 04/14/19 01:54 Penicillins Allergy Mild HIVES Verified 04/14/19 01:54 povidone-iodine Allergy Mild Hives Verified 04/14/19 01:54 [From Betadine] soap [From Betadine] Allergy Mild Hives Verified 04/14/19 01:54 tea tree Allergy Mild ITCHING Verified 04/14/19 01:54 Phenylethylamine Allergy Mild ITCHING Uncoded 04/14/19 01:54 Past Med/Surg History Medical History Gracie filter in place (Chronic) Coronary artery disease (Chronic) Recurrent genital herpes simplex (Chronic Unknown) COPD (chronic obstructive pulmonary disease) inhalers and nebulizers daily Prostate cancer sx Aortic aneurysm HERNANDEZ (acute kidney injury) (Acute) Unstable angina Anxiety Barretts esophagus Blood clotting disorder Chronic back pain Chronic kidney disease, stage 3 Diverticular disease GERD (gastroesophageal reflux disease) Gout Hearing deficit Hyperlipidemia Hypertension Myocardial Infarction 2017--follows with Dr. Casanova On home oxygen therapy 3-3.5L N/C at HS Osteoarthritis Sleep apnea oxygen at night Temporomandibular joint disorder Surgical History History of arthroscopic knee surgery History of bilateral cataract extraction History of cardiac cath x5--last 2016 History of colonoscopy History of esophagogastroduodenoscopy (EGD) History of heart artery stent multiple--last 2016 History of hernia repair epigastric History of left shoulder replacement History of lumbar surgery History of mandibular surgery tmj repair History of prostate biopsy malignant History of prostatectomy History of right inguinal hernia repair History of right shoulder replacement History of tooth extraction all teeth removed Status post correction of deviated nasal septum Status post total hip replacement, bilateral Family History Other Family history not known due to adoption Social History Preferred Language: Irish Communication Ability: Effective 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 and A total of 10 systems reviewed and were otherwise negative Physical Exam Vital Signs Vital Signs - 24 hr 04/13/19 22:31 04/13/19 22:50 04/13/19 22:52 Temperature 36.3 C L Temperature Source Oral Sepsis Recent Fever Within 48 Hours No Sepsis Action Taken by Nursing No Action Required Pulse Rate 57 L Pulse Rate [Bilateral Apical] 58 L Respiratory Rate 22 20 Respiratory Effort / Characteristics Non-Labored Spontaneous Non-Labored Respiratory Depth Normal Normal Blood Pressure 139/77 Blood Pressure [Right Arm] 155/105 H Blood Pressure Mean 97 Blood Pressure Mean [Right Arm] 121 Pulse Oximetry 97 95 95 Oxygen Delivery Method Room Air Room Air Room Air 04/13/19 23:24 04/14/19 00:31 04/14/19 01:29 Temperature Temperature Source Sepsis Recent Fever Within 48 Hours Sepsis Action Taken by Nursing Pulse Rate Pulse Rate [Bilateral Apical] 57 L 57 L 68 Respiratory Rate 20 20 18 Respiratory Effort / Characteristics Respiratory Depth Normal Blood Pressure Blood Pressure [Right Arm] 130/87 138/87 98/82 L Blood Pressure Mean Blood Pressure Mean [Right Arm] 101 104 87 Pulse Oximetry 95 94 96 Oxygen Delivery Method Room Air HEENT: Head - normocephalic and atraumatic Pupils are equal, round, and reactive to light. Extraocular eye muscles are intact, and sclera are anicteric. Nose - moist nasal mucosa without discharge. Mouth - moist buccal mucosa. Oropharynx is nonerythematous and there is no tonsillar exudate or edema noted. Neck: Supple; no JVD, nuchal rigidity, cervical lymphadenopathy, or auscultated bruits. Heart: Regular rate and rhythm. There is a normal S1 and S2 with no murmurs, clicks, or gallops appreciated. Lungs: Clear to auscultation bilaterally with no wheezes, rales, or rhonchi. Abdomen: Soft, completely nontender, nondistended, with good bowel sounds. There are no palpable pulsatile masses or hepatosplenomegaly. There is no guarding, rigidity, or rebound noted. Extremities: No evidence of cyanosis, clubbing, or edema. There are easily palpable peripheral pulses. Skin: warm, pale and slightly diaphoretic with good turgor and no rashes. Course 2306: Past medical records reviewed. The patient was evaluated in room A12A, and a complete history and physical examination were performed. A twelve-lead EKG was obtained. The patient was observed on the school lunch monitor and pulse oximeter. Patient had a chest x-ray as described above. 2317: I ordered Nitroglycerin 0.4mg SL 2350: I reevaluated the patient and he has complete relief of the chest tightness after one Nitro. 2359: The patient's heart score is a 5. 0010: I updated the patient on results and the treatment plan. The patient fully understands and is agreeable with the plan. 0014: I spoke to Dr. Shari Hurtado about the patient's case and he will be accepting him for further evaluation. Consultations Consultation #1: I spoke to Dr. Shari Hurtado about the patient's case and he will be accepting him for further evaluation. Time: 00:14 Administered Medications Sodium Chloride (1/2 Nss) 1,000 mls @ 60 mls/hr IV .[id number] STA Stop: 04/14/19 20:23 Last Admin: 04/14/19 04:28 Dose: 60 mls/hr Documented by: [id number] Discontinued Medications Sodium Chloride (1/2 Nss) 1,000 mls @ 500 mls/hr IV .Q2H STA Stop: 04/14/19 04:20 Last Admin: 04/14/19 02:56 Dose: 500 mls/hr Documented by: [id number] Magnesium Sulfate/Dextrose (Magnesium Sulfate / D5w) 1 gm in 100 mls @ 100 mls/hr IV ONE ONE Stop: 04/14/19 04:43 Last Admin: 04/14/19 04:34 Dose: 100 mls/hr Documented by: [id number] Nitroglycerin (Nitrostat) Confirm Administered Dose 0.4 mg .ROUTE .STK-MED ONE Stop: 04/13/19 23:16 Last Admin: 04/13/19 23:19 Dose: 0.4 mg Documented by: [id number] Nitroglycerin (Nitrostat) Confirm Administered Dose 0.4 mg .ROUTE .STK-MED ONE Stop: 04/13/19 23:18 Last Admin: 04/13/19 23:27 Dose: Not Given Documented by: [id number] Medical Decision Making Differential Diagnosis The patient is a 74 year old male who presents to the Emergency Room with complaints of intermittent chest pain that started about 3 days ago. Differential diagnosis includes ACS, NSTEMI, STEMI, GERD and Muscle pain, amongst others. Medical Records Attestation: I reviewed the patient's medical records. Home Medications Current Medication List: was personally reviewed by me Laboratory Data Attestation: I reviewed the patient's lab results. Result diagrams: 04/13/19 22:57 04/13/19 22:57 Lab Results 04/13/19 04/13/19 04/13/19 Range/Units 22:57 22:57 22:57 WBC 7.00 (4.8-10.8) K/uL RBC 3.46 L (4.7-6.1) M/uL Hgb 12.1 L (14.0-18.0) g/dL Hct 35.6 L (42-52) % MCV 102.9 H (80-100) fL MCH 35.0 H (25-34) pg MCHC 34.0 (32-36) g/dL RDW Std Deviation 53.8 H (36.4-46.3) fL RDW Coeff of Zoë 14.4 (11.5-14.5) % Plt Count 154 (130-400) K/uL MPV 10.9 H (7.4-10.4) fL Immature Gran % (Auto) 0.4 % Neut % (Auto) 71.6 % Lymph % (Auto) 16.4 % [place] % (Auto) 9.6 % Eos % (Auto) 1.7 % Baso % (Auto) 0.3 % Immature Gran # (Auto) 0.03 H (0.00-0.02) K/uL Neut # (Auto) 5.01 (1.4-6.5) K/uL Lymph # (Auto) 1.15 L (1.2-3.4) K/uL [place] # (Auto) 0.67 H (0.11-0.59) K/uL Eos # (Auto) 0.12 (0-0.5) K/uL Baso # (Auto) 0.02 (0-0.2) K/uL APTT 29.0 (21.0-31.0) Seconds PTT Ratio 1.1 Sodium 142 (136-145) mmol/L Potassium 4.3 (3.5-5.1) mmol/L Chloride 110 H (98-107) mmol/L Carbon Dioxide 26 (21-32) mmol/L Anion Gap 6.0 (3-11) BUN 21 H (7-18) mg/dl Creatinine 2.05 H (0.6-1.4) mg/dl Est Cr Clr Drug Dosing 33.8 ml/min Est GFR ( Amer) 35.9 Est GFR (Non-Af Amer) 31.0 BUN/Creatinine Ratio 10.2 (10-20) Glucose 89 (70-99) mg/dl Calcium 9.3 (8.5-10.1) mg/dl Magnesium 1.7 L (1.8-2.4) mg/dl Total Bilirubin 0.5 (0.2-1) mg/dl AST 26 (15-37) U/L ALT 27 (12-78) U/L Alkaline Phosphatase 180 H (45-117) U/L Troponin I < 0.015 (0-0.045) ng/ml Total Protein 7.4 (6.4-8.2) gm/dl Albumin 3.7 (3.4-5.0) gm/dl Globulin 3.7 (2.5-4.0) gm/dl Albumin/Globulin Ratio 1.0 (0.9-2) Lipase 180 (73-393) U/L TSH 8.650 H (0.300-4.500) uIu/ml Imaging Data Attestation: I personally reviewed and interpreted this imaging study as foll ows: My Impression: CHEST XRAY 1 View No pulmonary consolidation or pleural effusion. ECG Data Attestation: I personally reviewed and interpreted this ECG as follows: Indication: chest pain Rate (beats per minute): 53 Rhythm: sinus bradycardia Findings: no PAC, no PVC and no acute ischemic change Comparison ECG Date: from (6/29/19) Change: no significant change Blood Pressure Blood Pressure Findings: Elevated blood pressure Blood Pressure Disposition: further management by hospitalist MDM Narrative The patient is a 74 year old male who presents to the Emergency Room with complaints of intermittent chest pain that started about 3 days ago. The patient has a significant cardiac history. His chest discomfort has been relieved each time with nitroglycerin. EKG is unchanged and troponin is negative. However, given the patient's cardiac history, I remain concerned. I discussed the case with the [facility] Hospitalist and they will evaluate for further management. The patient's chest discomfort did not return while he was in the emergency department. Impression & Plan Substernal chest pain relieved by nitroglycerin Discharge Plan Visit Data *Final* Discharge Date/Time: 04/14/19 03:36 Chief Complaint: Chest Pain Stated Complaint: CHEST PAIN- HX STENTS ED Provider: Layne Trent Discharge Problem: Substernal chest pain relieved by nitroglycerin Patient Disposition: Admitted As Inpatient Discharge Instructions Interventions: ED Discharge Assessment Last Done: 04/14/19 03:36 The scribe's documentation has been prepared under my direction and personally reviewed by me in its entirety. I confirm that the note above accurately reflects all work, treatment, procedures, and medical decision making performed by me.
[2019-04-14 05:41] LABS: Basophils # (auto) 0.02 K/uL (0-0.2); Basophils % (auto) 0.2 %; Eosinophils # (auto) 0.18 K/uL (0-0.5); Hematocrit (blood only) 35.9 % (42-52); Hemoglobin 11.8 g/dL (14.0-18.0); Immature Granulocytes # (auto) 0.04 K/uL (0.00-0.02); Immature Granulocytes % (auto) 0.4 %; Lymphocytes # (auto) 1.64 K/uL (1.2-3.4); Lymphocytes % (auto) 18.1 %; Mean Corpuscular Hgb Conc 32.9 g/dL (32-36); Mean Corpuscular Volume 103.5 fL (80-100); Mean Platelet Volume 10.7 fL (7.4-10.4); Monocytes # (auto) 0.94 K/uL (0.11-0.59); Monocytes % (auto) 10.4 %; Neutrophils # (auto) 6.23 K/uL (1.4-6.5); Neutrophils % (auto) 68.9 %; Platelet Count 158 K/uL (130-400); RDW Coefficient of Variation 14.6 % (11.5-14.5); RDW Standard Deviation 55.4 fL (36.4-46.3); Red Blood Count 3.47 M/uL (4.7-6.1); White Blood Count 9.05 K/uL (4.8-10.8)
[2019-04-14] MEDS: HEPARIN SOD 5,000 UNIT/0.5 ML VIAL SQ SCH ×3 (05:48→20:12)
[2019-04-14 05:53] LABS: Partial Thromboplastin Ratio 1.1; Partial Thromboplastin Time 28.8 Seconds (21.0-31.0)
[2019-04-14 06:09] LABS: BUN Creatinine Ratio 10.4 (10-20); Calcium 9.1 mg/dl (8.5-10.1); Creatinine Clr Calc Pharmacy 34.2 ml/min; Est GFR (African American) 36.3; Est GFR (Non-African American) 31.4; Magnesium 2.1 mg/dl (1.8-2.4); Potassium 3.9 mmol/L (3.5-5.1)
[2019-04-14] MEDS: BUDESONIDE 0.5 MG/2 ML VIAL (PULMICORT) INH SCH ×2 (07:11→19:05)
[2019-04-14] MEDS: ARFORMOTEROL TART 15MCG/2ML VIAL INH SCH ×2 (07:11→19:05)
[2019-04-14] MEDS: ISOSORBIDE MONO EXTENDED REL 60 MG TABCR PO SCH (07:59)
[2019-04-14] MEDS: ALLOPURINOL 300 MG TAB PO SCH (07:59)
[2019-04-14] MEDS: METOPROLOL SUCC 25MG EXT REL TAB PO SCH (08:00)
[2019-04-14] MEDS: OXYBUTYNIN CHLORIDE 5 MG TAB PO SCH ×2 (08:00→20:06)
[2019-04-14] MEDS: ASPIRIN 81 MG ECTAB PO SCH (08:00)
[2019-04-14] MEDS: PANTOprazole 40 MG TAB PO SCH ×2 (08:00→20:07)
[2019-04-14] MEDS: FAMOTIDINE 20 MG TAB PO SCH (08:01)
[2019-04-14] MEDS: TRIAMCINOLONE ACET 0.1% CR 15 GM TUBE TOP SCH ×2 (08:05→20:07)
[2019-04-14] MEDS: PREGABALIN 25 MG CAP PO SCH ×3 (08:10→20:17)
--- NOTE | 2019-04-14 09:36 | Cardiology Consultation ---
Date of Consultation April 14, 2019 Assessment & Plan (1) Substernal chest pain relieved by nitroglycerin: The patient has a history of coronary artery disease with previous rotational atherectomy of the right coronary artery with stent placement as well as stent placement in the LAD in 2017. He is having recurrent chest pain relieved with nitroglycerin. He has had a recent dobutamine stress test that was negative before he presents with the same symptoms. He also wants to have shoulder replacement surgery completed and will need preoperative clearance. I feel the only way that he can be best evaluated for his chest pain is to repeat a cardiac catheterization. I have explained the risk, benefit and intent of the procedure to him and he is willing to proceed. He is also willing to proceed here at this hospital and [place] [facility] [place] if he requires a higher level of care. 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 The patient was sent to the hospital where he was evaluated and underwent a dobutamine stress echocardiogram which was negative. Following hospital discharge the patient did well until the past few days he began to have chest pain daily relieved with sublingual nitroglycerin. He decided to re-percent to the emergency department where he has been admitted. The cardiac troponins have been negative and his EKG remains within normal limits. MEDICAL ILLNESSES: 1. Coronary artery disease status post PCI to the RCA and LAD in a staged procedure 2016, with the last PCI on the LAD being complicated by a humerus fracture because an IV pole fell on the patient's arm. 2. Chronic kidney disease. 3. History of tobacco abuse with resultant COPD. 4. GERD. 5. Abdominal aorta measuring 3 cm. 6. History of Sepulveda's esophagitis. 7. Polyneuropathy. 8. Hypertension. 9. Gout. 10. Anxiety. PAST SURGICAL HISTORY: 1. PCI to the RCA along with staged PCI to the LAD complicated by an IV pole falling on the patient's shoulder. 2. Upper endoscopy. 3. Prostate biopsy. 4. Radical prostatectomy. 5. Hip surgery. 6. Shoulder surgery. 7. IVC filter placement. Allergies Allergy/AdvReac Type Severity Reaction Status Date / Time benzocaine Allergy Severe SLOUGHING Verified 04/14/19 01:54 OF SKIN clindamycin Allergy Intermediate RASH Verified 04/14/19 01:54 cyanocobalamin (vitamin B12) Allergy Intermediate Rash Verified 03/29/19 19:59 clobetasol Allergy Mild ITCHING Verified 04/14/19 01:54 doxycycline Allergy Mild RASH Verified 04/14/19 01:54 Penicillins Allergy Mild HIVES Verified 04/14/19 01:54 povidone-iodine Allergy Mild Hives Verified 04/14/19 01:54 [From Betadine] soap [From Betadine] Allergy Mild Hives Verified 04/14/19 01:54 tea tree Allergy Mild ITCHING Verified 04/14/19 01:54 Phenylethylamine Allergy Mild ITCHING Uncoded 04/14/19 01:54 Home Medications Home Medications Medication Instructions Recorded Confirmed Type Combivent Respimat 1 puff INHALATION QID PRN 06/14/18 04/14/19 History allopurinol 300 mg PO QAM 06/14/18 04/14/19 History aspirin [Aspirin Low Dose] 81 mg PO UD PRN MDD ] 06/14/18 04/14/19 History atorvastatin 80 mg PO QPM 06/14/18 04/14/19 History cholecalciferol (vitamin D3) 2,000 unit PO QPM 06/14/18 04/14/19 History [Vitamin D3] docusate sodium 100 mg PO BID PRN 06/14/18 04/14/19 History famotidine 20 mg PO QAM 06/14/18 04/14/19 History ferrous sulfate 325 mg PO QPM 06/14/18 04/14/19 History isosorbide mononitrate 60 mg PO QAM 06/14/18 04/14/19 History lorazepam 0.5 mg PO TID PRN 06/14/18 04/14/19 History metoprolol succinate 25 mg PO QAM 06/14/18 04/14/19 History nitroglycerin 1 tab SUBLINGUAL UD PRN 06/14/18 04/14/19 History oxybutynin chloride 5 mg PO BID 06/14/18 04/14/19 History pantoprazole 20 mg PO BID 06/14/18 04/14/19 History triamcinolone acetonide 1 applic TOPICAL BID 06/14/18 04/14/19 History Brovana 15 mcg INHALATION BID 01/07/19 04/14/19 History Lyrica 25 mg PO TID 01/07/19 04/14/19 History albuterol sulfate 2.5 mg INHALATION Q4 PRN 01/07/19 04/14/19 History budesonide [Pulmicort] 0.5 mg INHALATION BID 01/07/19 04/14/19 History valacyclovir [Valtrex] 1,000 mg PO UD PRN 01/07/19 04/14/19 History Centrum Silver 1 tab PO QAM 03/29/19 04/14/19 History aspirin [Aspir-81] 81 mg PO DAILY 03/29/19 04/14/19 History azithromycin 0 mg PO DIRECTED PRN 03/29/19 04/14/19 History hydrocortisone acetate [Anusol-HC] 25 mg [place] DAILY PRN 03/29/19 04/14/19 History miconazole nitrate [Antifungal 1 applic TOPICAL DAILY PRN 03/29/19 04/14/19 History Cream (miconazole)] prednisone [Deltasone] 0 mg PO DIRECTED PRN 03/29/19 04/14/19 History cephalexin 250 mg PO DAILY 04/14/19 04/14/19 History magnesium oxide 400 mg PO DAILY 04/14/19 04/14/19 History Patient History Medical History Gracie filter in place (Chronic) Coronary artery disease (Chronic) Recurrent genital herpes simplex (Chronic Unknown) COPD (chronic obstructive pulmonary disease) inhalers and nebulizers daily Prostate cancer sx Aortic aneurysm HERNANDEZ (acute kidney injury) (Acute) Unstable angina Anxiety Barretts esophagus Blood clotting disorder Chronic back pain Chronic kidney disease, stage 3 Diverticular disease GERD (gastroesophageal reflux disease) Gout Hearing deficit Hyperlipidemia Hypertension Myocardial Infarction 2016--follows with Dr. Casanova On home oxygen therapy 3-3.5L N/C at HS Osteoarthritis Sleep apnea oxygen at night Temporomandibular joint disorder Surgical History History of arthroscopic knee surgery History of bilateral cataract extraction History of cardiac cath x5--last 2017 History of colonoscopy History of esophagogastroduodenoscopy (EGD) History of heart artery stent multiple--last 2017 History of hernia repair epigastric History of left shoulder replacement History of lumbar surgery History of mandibular surgery tmj repair History of prostate biopsy malignant History of prostatectomy History of right inguinal hernia repair History of right shoulder replacement History of tooth extraction all teeth removed Status post correction of deviated nasal septum Status post total hip replacement, bilateral Family History Other Family history not known due to adoption Social History Preferred Language: Angolan Communication Ability: Effective 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 Beliefs That Will Affect Care: None Current Living Situation: Spouse Current Living Situation Comment: Lives with and son Other Information That Helps Us Care for You: No Feels Safe at Home: Yes Safety Concerns: Feels Safe At This Time Smoking Status: Current every day smoker Tobacco Type: cigars Cigarettes Per Day: 1 Do You Dip or Chew Tobacco: No Second Hand Exposure: No Tobacco Cessation Education Requested by Patient: No Hx Alcohol Use: Yes Alcohol type: beer Hx Substance Use: No Review of Systems Review of Systems: All systems reviewed & are unremarkable except as noted in HPI & below No additional except the patient is to have right shoulder surgery following trauma to the right shoulder after an IV pole fell on his right arm after his PCI in 2017 Physical Exam Physical Exam: General: no acute distress and stated age Head: normocephalic, no masses, lesions, tenderness or abnormalities Eyes: conjunctiva are pink and non-injected, sclera clear Neck: supple, no adenopathy, no bruits, normal jugular venous pulse, no hepatojugular reflux Chest: normal shape and normal respiratory effort Lungs: clear to auscultation and percussion Cardiac Exam: - regular rate & rhythm, no murmurs gallops or rubs - normal S1, normal S2 Pulses: 2(+) throughout Abdomen: abdomen soft, non-tender, no abnormal masses and no hepatosplenomegaly Musculoskeletal: no gait disturbance, no joint inflammation, no deforming arthritis Extremities: no edema and no cyanosis Neuro: grossly normal exam Results & Data Vital Signs (Past 12 Hours) Vital Signs Temp Pulse Pulse Pulse Resp BP BP 04/14/19 07:11 55 L 18 04/14/19 07:07 36.4 C L 53 L 18 138/86 04/14/19 06:45 58 L 04/14/19 04:03 37.1 C 65 20 04/14/19 03:34 55 L 18 04/14/19 02:57 56 L 20 04/14/19 02:45 63 18 04/14/19 01:29 68 18 04/14/19 00:31 57 L 20 04/13/19 23:24 57 L 20 04/13/19 22:52 04/13/19 22:50 58 L 20 04/13/19 22:31 36.3 C L 57 L 22 139/77 BP Pulse Ox 04/14/19 07:11 95 04/14/19 07:07 95 04/14/19 06:45 04/14/19 04:03 156/105 H 98 04/14/19 03:34 125/88 93 04/14/19 02:57 121/77 95 04/14/19 02:45 126/81 94 04/14/19 01:29 98/82 L 96 04/14/19 00:31 138/87 94 04/13/19 23:24 130/87 95 04/13/19 22:52 95 04/13/19 22:50 155/105 H 95 04/13/19 22:31 97 Laboratory Results Laboratory Results - last 24 hr 04/13/19 04/13/19 04/13/19 22:57 22:57 22:57 WBC 7.00 RBC 3.46 L Hgb 12.1 L Hct 35.6 L MCV 102.9 H MCH 35.0 H MCHC 34.0 RDW Std Deviation 53.8 H RDW Coeff of Zoë 14.4 Plt Count 154 MPV 10.9 H Immature Gran % (Auto) 0.4 Neut % (Auto) 71.6 Lymph % (Auto) 16.4 George % (Auto) 9.6 Eos % (Auto) 1.7 Baso % (Auto) 0.3 Immature Gran # (Auto) 0.03 H Neut # (Auto) 5.01 Lymph # (Auto) 1.15 L George # (Auto) 0.67 H Eos # (Auto) 0.12 Baso # (Auto) 0.02 APTT 29.0 PTT Ratio 1.1 Sodium 142 Potassium 4.3 Chloride 110 H Carbon Dioxide 26 Anion Gap 6.0 BUN 21 H Creatinine 2.05 H Est Cr Clr Drug Dosing 33.8 Est GFR ( Amer) 35.9 Est GFR (Non-Af Amer) 31.0 BUN/Creatinine Ratio 10.2 Glucose 89 Calcium 9.3 Magnesium 1.7 L Total Bilirubin 0.5 AST 26 ALT 27 Alkaline Phosphatase 180 H Troponin I < 0.015 Total Protein 7.4 Albumin 3.7 Globulin 3.7 Albumin/Globulin Ratio 1.0 Triglycerides Cholesterol LDL Cholesterol, Calc VLDL Cholesterol, Calc HDL Cholesterol Cholesterol/HDL Ratio Lipase 180 TSH 8.650 H 04/14/19 04/14/19 04/14/19 05:15 05:15 05:15 WBC 9.05 RBC 3.47 L Hgb 11.8 L Hct 35.9 L MCV 103.5 H MCH 34.0 MCHC 32.9 RDW Std Deviation 55.4 H RDW Coeff of Zoë 14.6 H Plt Count 158 MPV 10.7 H Immature Gran % (Auto) 0.4 Neut % (Auto) 68.9 Lymph % (Auto) 18.1 George % (Auto) 10.4 Eos % (Auto) 2.0 Baso % (Auto) 0.2 Immature Gran # (Auto) 0.04 H Neut # (Auto) 6.23 Lymph # (Auto) 1.64 George # (Auto) 0.94 H Eos # (Auto) 0.18 Baso # (Auto) 0.02 APTT 28.8 PTT Ratio 1.1 Sodium 141 Potassium 3.9 Chloride 108 H Carbon Dioxide 26 Anion Gap 7.0 BUN 21 H Creatinine 2.03 H Est Cr Clr Drug Dosing 34.2 Est GFR ( Amer) 36.3 Est GFR (Non-Af Amer) 31.4 BUN/Creatinine Ratio 10.4 Glucose 84 Calcium 9.1 Magnesium 2.1 Total Bilirubin AST ALT Alkaline Phosphatase Troponin I Total Protein Albumin Globulin Albumin/Globulin Ratio Triglycerides 114 Cholesterol 86 LDL Cholesterol, Calc 29 VLDL Cholesterol, Calc 23 HDL Cholesterol 34 Cholesterol/HDL Ratio 3 Lipase TSH 04/14/19 05:15 WBC RBC Hgb Hct MCV MCH MCHC RDW Std Deviation RDW Coeff of Zoë Plt Count MPV Immature Gran % (Auto) Neut % (Auto) Lymph % (Auto) George % (Auto) Eos % (Auto) Baso % (Auto) Immature Gran # (Auto) Neut # (Auto) Lymph # (Auto) George # (Auto) Eos # (Auto) Baso # (Auto) APTT PTT Ratio Sodium Potassium Chloride Carbon Dioxide Anion Gap BUN Creatinine Est Cr Clr Drug Dosing Est GFR ( Amer) Est GFR (Non-Af Amer) BUN/Creatinine Ratio Glucose Calcium Magnesium Total Bilirubin AST ALT Alkaline Phosphatase Troponin I < 0.015 Total Protein Albumin Globulin Albumin/Globulin Ratio Triglycerides Cholesterol LDL Cholesterol, Calc VLDL Cholesterol, Calc HDL Cholesterol Cholesterol/HDL Ratio Lipase TSH Medications Administered Current Inpatient Medications Albuterol (Combivent Respimat) 1 puffs INH QID PRN PRN Reason: Cough Stop: 05/14/19 03:43 Albuterol (Duoneb) 3 ml NEB Q2H PRN PRN Reason: Wheezing Stop: 05/14/19 03:43 Allopurinol (Zyloprim) 300 mg PO QAM [facility] Stop: 05/14/19 08:59 Last Admin: 04/14/19 07:59 Dose: 300 mg Documented by: Arformoterol Tartrate (Brovana Neb) 15 mcg INH BIDR [facility] Stop: 05/14/19 07:59 Last Admin: 04/14/19 07:11 Dose: 15 mcg Documented by: Aspirin (Ecotrin Ectab) 81 mg PO DAILY [facility] Stop: 05/14/19 08:59 Last Admin: 04/14/19 08:00 Dose: 81 mg Documented by: Atorvastatin Calcium (Lipitor) 80 mg PO QPM [facility] Stop: 05/14/19 20:59 Budesonide (Pulmicort Respules) 0.5 mg INH BIDR [facility] Stop: 05/14/19 07:59 Last Admin: 04/14/19 07:11 Dose: 0.5 mg Documented by: Docusate Sodium (Colace) 100 mg PO BID PRN PRN Reason: Constipation Stop: 05/14/19 03:43 Famotidine (Pepcid) 20 mg PO QAM [facility] Stop: 05/14/19 08:59 Last Admin: 04/14/19 08:01 Dose: 20 mg Documented by: Ferrous Sulfate (Feosol) 325 mg PO QPM [facility] Stop: 05/14/19 20:59 Heparin Sodium (Porcine) (Heparin Sodium (Porcine)) 5,000 units SQ Q8 [facility] Stop: 05/14/19 05:59 Last Admin: 04/14/19 05:48 Dose: Not Given Documented by: Hydromorphone HCl (Dilaudid) 0.25 mg IV Q3H PRN PRN Reason: Pain Stop: 04/28/19 03:43 Sodium Chloride (1/2 Nss) 1,000 mls @ 60 mls/hr IV .[id number] STA Stop: 04/14/19 20:23 Last Admin: 04/14/19 04:28 Dose: 60 mls/hr Documented by: Promethazine HCl 12.5 mg/ (Sodium Chloride) 50.5 mls @ 202 mls/hr IV Q6H PRN PRN Reason: Nausea And Vomiting Stop: 05/14/19 03:43 Sodium Chloride (Nss 1000ml) 1,000 mls @ 1 mls/hr IV .Q24H [facility] Stop: 05/14/19 10:14 Isosorbide Mononitrate (Imdur Extended Rel) 60 mg PO QAM [facility] Stop: 05/14/19 08:59 Last Admin: 04/14/19 07:59 Dose: 60 mg Documented by: Lorazepam (Ativan) 0.5 mg PO TID PRN PRN Reason: Anxiety Stop: 05/14/19 03:43 Metoprolol Succinate (Toprol Xl) 25 mg PO QAM [facility] Stop: 05/14/19 08:59 Last Admin: 04/14/19 08:00 Dose: 25 mg Documented by: Nitroglycerin (Nitrostat) 0.4 mg SL UD PRN PRN Reason: Chest Pain Stop: 05/14/19 03:43 Oxybutynin Chloride (Ditropan) 5 mg PO BID [facility] Stop: 05/14/19 08:59 Last Admin: 04/14/19 08:00 Dose: 5 mg Documented by: Pantoprazole Sodium (Protonix) 40 mg PO BID [facility] Stop: 05/14/19 08:59 Last Admin: 04/14/19 08:00 Dose: 40 mg Documented by: Pregabalin (Lyrica) 25 mg PO TID [facility] Stop: 05/14/19 08:59 Last Admin: 04/14/19 08:10 Dose: 25 mg Documented by: Tramadol HCl (Ultram) 25 mg PO Q4H PRN PRN Reason: Pain Stop: 05/14/19 03:43 Triamcinolone Acetonide (Kenalog 0.1%) 1 appln TOP BID [facility] Stop: 05/14/19 08:59 Last Admin: 04/14/19 08:05 Dose: Not Given Documented by: Vitamin D (Vitamin D3) 2,000 units PO QPM [facility] Stop: 05/14/19 20:59
[2019-04-14] MEDS ORDERED: SODIUM CHLORIDE 0.9% 1000ML 1,000 ML IV SCH (10:15)
[2019-04-14] MEDS ORDERED: FUROSEMIDE 20 MG in SYRINGE 0 ML IV ONE (10:45)
--- NOTE | 2019-04-14 10:46 | Hospitalist Progress Note ---
Date of Service April 14, 2019 Assessment & Plan (1) Substernal chest pain relieved by nitroglycerin: Chest Pain Coronary artery disease status post PCI to the RCA and LAD in a staged procedure 2017, with the last PCI on the LAD being complicated by a humerus fracture because an IV pole fell on the patient's arm. Substernal chest pain relieved by nitroglycerin - as per cardiology consult the patient has a history of coronary artery disease with previous rotational atherectomy of the right coronary artery with stent placement as well as stent placement in the LAD in 2017. He is having recurrent chest pain relieved with nitroglycerin. He has had a recent dobutamine stress test that was negative before he presents with the same symptoms. He also wants to have shoulder replacement surgery completed and will need preoperative clearance. -cardiology service planning for cardiac cath for 04/14/19 -patient did express to daytime hospitalist cramping sensation of chest despite 2 troponins negative on this presentation. third troponin to be drawn as negative. EKG ordered. Lasix ordered. nitropaste ordered. 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 The pain relieved by nitro again. as per Dr. Francois, would hold off heparin drip for now and continued the planned cardiac cath for 04/15/19 -Continue aspirin, beta-sabi, statin meds History of Aortic aneurysm - Abdominal aorta measuring 3 cm in the past Hypertension. -on isosorbide History of [place] filter in place: Chronic kidney disease. -monitor renal function History of tobacco abuse with resultant COPD. -on room air GERD. History of Sepulveda's esophagitis. history of anxiety -mood stable Gout history -on allopurinol at home Polyneuropathy history DVT ppx: heparin subcut Subjective Patient generally comfortable. patient breathing on room air. no shortness of breath. he did not have any other symptoms but when medical doctor asked when his chest pain symptoms stopped while in the hospital, patient took a moment to think about and then said that he was feeling some cramping pain near the chest right now. patient does not seem to be in acute distress have ordered 3rd troponin, EKG, nitro paste, morphine third trop negative. pain relieved by nitropaste Physical Exam Constitutional: WD/WN, vitals as above ENMT: external ear and nose normal, oropharynx normal Respiratory: normal respiratory effort, lungs clear to auscultation Cardiovascular: Rate/Rhythm: regular rate and regular rhythm Gastrointestinal (Abdomen): normal bowel sounds, soft, nontender, no hepatosplenomegaly Musculoskeletal: Head/Neck/Chest: normocephalic and head atraumatic lower extremity edema Neurologic: PERRL, EOMI, accommodation nl, no face palsy, no dysarthria CN's II-XI intact bilaterally Psychiatric: A+Ox3, euthymic affect Results & Data Vital Signs (Past 12 Hours) Vital Signs Temp Pulse Pulse Pulse Resp BP BP 04/14/19 07:11 55 L 18 04/14/19 07:07 36.4 C L 53 L 18 138/86 04/14/19 06:45 58 L 04/14/19 04:03 37.1 C 65 20 156/105 H 04/14/19 03:34 55 L 18 125/88 04/14/19 02:57 56 L 20 121/77 04/14/19 02:45 63 18 126/81 04/14/19 01:29 68 18 98/82 L 04/14/19 00:31 57 L 20 138/87 04/13/19 23:24 57 L 20 130/87 04/13/19 22:52 04/13/19 22:50 58 L 20 155/105 H Pulse Ox 04/14/19 07:11 95 04/14/19 07:07 95 04/14/19 06:45 04/14/19 04:03 98 04/14/19 03:34 93 04/14/19 02:57 95 04/14/19 02:45 94 04/14/19 01:29 96 04/14/19 00:31 94 04/13/19 23:24 95 04/13/19 22:52 95 04/13/19 22:50 95
[2019-04-14] MEDS ORDERED: MoRPHine SULFATE 2 MG/ML CARP IV STA (10:47)
[2019-04-14] MEDS: NITROGLYCERIN 2% OINTMENT 30GM TUBE EXT SCH ×3 (11:01→22:26)
--- NOTE | 2019-04-14 11:34 | XRay Report ---
SINGLE VIEW CHEST CLINICAL HISTORY: Atypical chest pain. FINDINGS: An AP, portable, upright chest radiograph is compared to study dated 06/14/2018 and correlat ed with chest CT dated 04/12/2018. The examination is degraded by portable technique and patient rotat ion. The heart is enlarged and there is atherosclerotic calcification of the thoracic aorta. The pu lmonary vasculature is noncongested. Emphysema and chronic interstitial thickening are similar to pre vious. There is bibasilar scarring/atelectasis. No airspace consolidation or large pleural effusion i s identified. No pneumothorax is seen. The skeletal structures are osteopenic. The bony thorax is lazaro ssly intact. There are bilateral shoulder arthroplasties in place. IMPRESSION: Cardiomegaly and emphysema with no acute cardiopulmonary abnormality. Electronically signed by: Braden Rucker M.D. 04/14/2019 11:32 AM
[2019-04-14] MEDS ORDERED: ATORVASTATIN 40 MG TAB PO SCH (21:00)
[2019-04-14] MEDS ORDERED: FERROUS SULFATE 325 MG TAB PO SCH (21:00)
[2019-04-14] MEDS ORDERED: CHOLECALCIFEROL 1,000 UNITS TAB PO SCH (21:00)
[2019-04-15] MEDS: NITROGLYCERIN 2% OINTMENT 30GM TUBE EXT SCH ×2 (05:52→11:09)
[2019-04-15] MEDS: HEPARIN SOD 5,000 UNIT/0.5 ML VIAL SQ SCH ×2 (05:52→13:42)
[2019-04-15] MEDS: ARFORMOTEROL TART 15MCG/2ML VIAL INH SCH (07:10)
[2019-04-15] MEDS: BUDESONIDE 0.5 MG/2 ML VIAL (PULMICORT) INH SCH (07:10)
[2019-04-15] MEDS: TRIAMCINOLONE ACET 0.1% CR 15 GM TUBE TOP SCH (07:35)
[2019-04-15] MEDS: METOPROLOL SUCC 25MG EXT REL TAB PO SCH (07:50)
[2019-04-15] MEDS: PREGABALIN 25 MG CAP PO SCH ×2 (07:56→13:43)
[2019-04-15] MEDS: ISOSORBIDE MONO EXTENDED REL 60 MG TABCR PO SCH (07:57)
[2019-04-15] MEDS: ASPIRIN 81 MG ECTAB PO SCH (07:57)
[2019-04-15] MEDS: OXYBUTYNIN CHLORIDE 5 MG TAB PO SCH (07:57)
--- NOTE | 2019-04-15 09:00 | Cardiology Progress Note ---
Date of Service April 15, 2019 Assessment & Plan (1) Substernal chest pain relieved by nitroglycerin: The risks, benefits, alternatives to cardiac catheterization discussed with patient at length. Specifically reviewed risk of contrast-induced nephropathy. Recommend IV hydration. Normal saline 125 cc/h ordered. Remain n.p.o. at this time. Patient agreeable to procedure and possible percutaneous intervention if indicated at [facility]. Will perform via femoral access as right radial access unsuccessful in the past due to tortuosity of the innominate artery. (2) Coronary artery disease: (3) Aortic aneurysm: (4) Gracie filter in place: Subjective Patient seen and examined at the bedside. Reports recurrent chest heaviness and discomfort overnight. He has not used any additional sublingual nitroglycerin. No dysrhythmias on telemetry. Denies palpitations, lightheadedness, dizziness, syncope, or near syncope. Patient made n.p.o. in anticipation of repeat cardiac catheterization today. Complex history reviewed. I performed initial cardiac catheterization in May 2017 demonstrating two-vessel disease with a 90% proximal RCA and 70% mid LAD. Ultimately patient went on to have rotational atherectomy of the right coronary artery and drug-eluting stent implantation to both the right coronary artery and LAD in a staged fashion. Offers no additional concerns/complaints at this time. Review of Systems Review of Systems: All systems reviewed & are unremarkable except as noted in HPI & below Physical Exam Physical Exam: General: NAD, AAO x3, well nourished. HEENT: Normocephalic. Atraumatic. Conjunctiva pink, no scleral icterus. Neck: No carotid bruits, the carotid upstrokes are brisk. No JVD. No HJR Heart: Regular normal S-1 and S-2 no S-3 or S-4 gallop. No murmurs or rub appreciated. PMI is not displaced. No RV heave. Lungs: Clear bilateral without rales , rhonchi, or wheeze. Abdomen: Normal bowel sounds. Soft. Nontender. No masses or organomegaly. No abdominal bruits. Extremities: No clubbing, cyanosis, or edema. Pulses: radial=2/4, Dorsalis pedis =2/4, posterior tibial=2/4. Neuro: Cranial nerves grossly intact. No focal motor deficit. Results & Data Vital Signs (Past 12 Hours) Vital Signs Temp Pulse Pulse Resp BP Pulse Ox 04/15/19 07:10 51 L 18 96 04/15/19 07:06 36.4 C L 98 H 18 160/95 H 95 04/15/19 07:00 53 L 04/15/19 03:31 36.4 C L 54 L 19 134/81 95 04/14/19 23:35 51 L 04/14/19 23:32 36.5 C 50 L 19 138/84 95
[2019-04-15] MEDS: SODIUM CHLORIDE 0.9% 500 ML IV SCH ×2 (09:09→13:26)
--- NOTE | 2019-04-15 09:46 | Hospitalist Progress Note ---
Date of Service April 15, 2019 Assessment & Plan (1) Substernal chest pain relieved by nitroglycerin: Chest Pain Coronary artery disease status post PCI to the RCA and LAD in a staged procedure 2017, with the last PCI on the LAD being complicated by a humerus fracture because an IV pole fell on the patient's arm. Substernal chest pain relieved by nitroglycerin (at home and in hospital) - as per cardiology consult the patient has a history of coronary artery disease with previous rotational atherectomy of the right coronary artery with stent placement as well as stent placement in the LAD in 2017. He is having recurrent chest pain relieved with nitroglycerin. He has had a recent dobutamine stress test that was negative before he presents with the same symptoms. He also wants to have shoulder replacement surgery completed and will need preoperative clearance. -04/14/19 patient did express to daytime hospitalist cramping sensation of chest despite 2 troponins negative on this presentation. third troponin to be drawn as negative. EKG ordered. Lasix ordered. nitropaste ordered. 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 Francois quality reviewer. The pain relieved by nitro again. as per Dr. Francois, hold off heparin drip for now and continue for planned cardiac cath for 04/15/19 -on aspirin, beta-sabi, statin meds History of Aortic aneurysm - Abdominal aorta measuring 3 cm in the past Hypertension. -on isosorbide History of Gracie filter in place: Chronic kidney disease. -monitor renal function History of tobacco abuse with resultant COPD. -on room air GERD. History of Sepulveda's esophagitis. history of anxiety -mood stable Gout history -on allopurinol at home Polyneuropathy history DVT ppx: heparin subcut Subjective Patient seen and examined at bedside. in AM. He is on IV fluids for hydration and because he will get dye contrast during planned cardica cath for later today. Patient reports he is breathing comfortably. denies shortness of breath. no chest pain currently, no abdomen pain. no vomiting. no dizziness. no lightheadedness Physical Exam Constitutional: WD/WN, vitals as above Eyes: PERRL, conjunctivae normal, anicteric sclerae EOM intact bilaterally ENMT: external ear and nose normal, oropharynx normal Respiratory: normal respiratory effort Cardiovascular: Rate/Rhythm: regular rate and regular rhythm Gastrointestinal (Abdomen): normal bowel sounds, soft, nontender, no hepatos plenomegaly Musculoskeletal: Head/Neck/Chest: normocephalic and head atraumatic Neurologic: PERRL, EOMI, accommodation nl, no face palsy, no dysarthria CN's II-XI intact bilaterally Psychiatric: A+Ox3, euthymic affect Results & Data Vital Signs (Past 12 Hours) Vital Signs Temp Pulse Pulse Resp BP Pulse Ox 04/15/19 07:10 51 L 18 96 04/15/19 07:06 36.4 C L 98 H 18 160/95 H 95 04/15/19 07:00 53 L 04/15/19 03:31 36.4 C L 54 L 19 134/81 95 04/14/19 23:35 51 L 04/14/19 23:32 36.5 C 50 L 19 138/84 95
--- NOTE | 2019-04-15 09:54 | Pre Anesthesia Assessment ---
Date of Service April 15, 2019 Pre Sedation Assessment Vital Signs Temp Pulse Pulse Resp BP BP Pulse Ox 04/15/19 07:10 51 L 18 96 04/15/19 07:06 36.4 C L 98 H 18 160/95 H 95 04/15/19 07:00 53 L 04/15/19 03:31 36.4 C L 54 L 19 134/81 95 04/14/19 23:35 51 L 04/14/19 23:32 36.5 C 50 L 19 138/84 95 04/14/19 19:23 36.5 C 51 L 15 151/92 H 98 04/14/19 19:05 53 L 16 94 04/14/19 14:53 36.6 C 62 19 123/79 96 04/14/19 11:34 36.5 C 51 L 20 145/83 H 93 Cardiovascular RRR, no murmur, no edema Respiratory normal respiratory effort, lungs clear to auscultation Pre-Sedation Airway Assessment Smoking Status: Current every day smoker Procedure Planning Contraindications for Sedation: none Current Medications Reviewed: Yes Notes The planned sedation has been discussed with the patient. Informed Consent was obtained. I have identified the patient, determined the appropriateness of sedation and have assessed the patient immediately prior to the procedure. All medicine(s) and interventions are by my order.
[2019-04-15] MEDS ORDERED: HEPARIN (PORCINE) 1000 UNIT/ML 10 ML (CATH LAB USE ONLY) ONE (10:32)
[2019-04-15] MEDS ORDERED: fentaNYL citrate 100 MCG/2 ML VIAL ONE (10:32)
[2019-04-15] MEDS ORDERED: MIDAZOLAM HCL 1 MG/ML 2ML VIAL ONE ×2 (10:32→11:17)
[2019-04-15] MEDS ORDERED: NiCARDipine HCL INJ 2.5 MG/ML 10 ML AMP ONE (10:32)
--- NOTE | 2019-04-15 11:56 | Post Anesthesia Assessment ---
Date of Service April 15, 2019 Post Sedation Assessment Vital Signs Temp Pulse Pulse Resp BP Pulse Ox 04/15/19 07:10 51 L 18 96 04/15/19 07:06 36.4 C L 98 H 18 160/95 H 95 04/15/19 07:00 53 L 04/15/19 03:31 36.4 C L 54 L 19 134/81 95 04/14/19 23:35 51 L 04/14/19 23:32 36.5 C 50 L 19 138/84 95 04/14/19 19:23 36.5 C 51 L 15 151/92 H 98 04/14/19 19:05 53 L 16 94 04/14/19 14:53 36.6 C 62 19 123/79 96 Recovery Score Activity: Moves 4 extremities Respiration: Deep Breath/Cough Circulation: +/-20% PreAnes Value Consciousness: Fully Awake Oxygen Saturation: > 92% On Room Air Post Sedation Plan On clinical assessment, the patient appears to have tolerated the sedation without complications. Patient is recovering as anticipated. Patient will continue to be monitored by nursing and may be discharged when sedation discharge criteria are met per below protocol. Upon Completions of procedure and additional 15 minutes continue every 5 minute vital signs and the P.A.R. score; then discharge to a Phase I or Fast Track to Phase II per the following guidelines: * Discharge Patient to appropriate Phase II area if PAR is 8 or greater or return to pre- procedure baseline. The post - procedure orders will be as directed. * If PAR score is less than 8 or not return to pre-procedure baseline then patient will follow Phase I monitoring till PAR is reached for Phase II. The Phase I may be done in procedure room or may call to secure a Phase I area. * If naloxone or flumazenil are used for reversal, hold in Phase I for continued monitoring from when last reversal dose was given for a minimum of 60 minutes or longer pending the nurse and/or physician discretion of patient condition before discharge to Phase II. Please call the Sedation Physician to re-evaluate and complete post-note for discharge to Phase II area. Do NOT discharge from procedure sedation or Phase 1 until post- sedation evaluation note is complete by procedure /sedation MD Sedation Discharge Instructions to be given to the patient at discharge to home.
--- NOTE | 2019-04-15 12:01 | Cardiac Catheterization ---
Cardiac Cath Procedure Full Procedure Date April 15, 2019 Pre-Procedure Diagnosis Pre-Procedure Diagnosis: Angina, CAD and Cardiothoracic Symptom AUC Score AUC Score: 7 Post-Procedure Diagnosis Post-Procedure Diagnosis: Severe CAD Procedure(s) Performed Procedure(s) Performed: Coronary Angiography, Left Heart Cath, Ultrasound Guided Vascular Access and Femoral Artery Angiography Spiral Binder Hai Canseco DO [employer](s) [place] RCIA Estimated Blood Loss Estimated Blood Loss: 8cc Medication(s) Medication(s): Fentanyl, Lidocaine 1% and Versed Summary of Findings 75% proximal RCA in stent with severe focal calcification Hemodynamics Rest Ao:: 110/63/85 Final Ao: 128/71/93 LV: 123/-14/8 Recommendations Recommendations: PCI without planned CABG Specimens Specimens: None Radiation Exposure (mGy) 1643 Contrast (mls) 70 Fluids (cc crystalloids) Fluids (cc crystalloids): 75cc Nss Anesthesia Moderate sedation. Start 1105. End 1146. Sedation monitor: Beckman RN Procedural Complication(s) None Disposition Claims Administrator Holding/Recovery ACC Data: Claims Administrator Cardiac Status Clinical evaluation leading to the procedure CAD Presenation: Unstable angina Anginal Classification: CCS IV Heart Failure: No Cardiogenic Shock within 24 Hours: No Cardiac Arrest within 24 Hours: No Imaging Studies Past 6 Months: Yes Stress Studies Past 6 Months: Yes Stress Echocardiogram: Yes - Negative Coronary Anatomy Dominant: Right Left Main (% Stenosis): Mid (20%) and Distal (20%) LAD (% Stenosis): Proximal (30%, sent patent), Mid (20%) and Distal (30%) Circumflex (% Stenosis): Mid (10%) RCA (% Stenosis): Proximal (75% in-stent, focal severe calcification), Mid (long 30% tubular stenosis) and Distal (20%) R PDA (% Stenosis): Mid (10-20% diffuse) R PL1 (% Stenosis): Normal R PL2 (% Stenosis): Proximal (10%) Ramus (% Stenosis): Mid (10%) Diagnostic Physicians Name: Hai Canseco DO Status: Elective Closure Device Percutaneous Entry Location: Femoral Closure Device: None-Manual Hold Recommendations: PCI without planned CABG Intraprocedure Events Significant Disection: No Perforation: No
[2019-04-15] MEDS ORDERED: NITROGLYCERIN 2% OINTMENT 30GM TUBE EXT ONE (13:17)
[2019-04-15] MEDS ORDERED: MoRPHine SULFATE 2 MG/ML CARP IV STA (13:17)
[2019-04-15] MEDS ORDERED: MoRPHine SULFATE 2 MG/ML CARP ONE (13:20)
[2019-04-15] MEDS ORDERED: NITROGLYCERIN/D5W 100MCG/ML 250 ML IV SCH (14:30)
--- NOTE | 2019-04-15 14:39 | Discharge Summary ---
Date of Service April 15, 2019 Admission HPI Per Admitting Provider History obtained from patient and records. Medical history significant for chronic respiratory failure secondary to COPD on home O2 at night, past tobacco abuse, CAD status post stenting, hx PVD, hypertension, hyperlipidemia, chronic anemia (baseline hemoglobin 11-12), chronic renal insufficiency (baseline creatinine 2), gout, HSV, prostate cancer status post surgery. Recent confinement 2 weeks ago for chest pain deemed noncardiac. Stress test was negative for ischemia. The last 3 days patient noted intermittent squeezing chest tightness episodes similar to anginal attacks intermittent relief with aspirin. No shortness of breath, no diaphoreses. Patient does not check blood pressure at home. Patient eventually ran out of nitro sublingual tablets. At the ER, chest discomfort relieved by nitroglycerin administration. Medical History as above Surgical History : Prostatectomy, hip surgery, shoulder surgery, IVC filter placement Family History : Heart disease, COPD, throat cancer Personal/Social history : Past tobacco abuse, occasional EtOH intake, retired [employer] Admission Exam Per Admitting Provider GENERAL: Comfortable, pleasant, obese, no respiratory distress SKIN: Pallor , warm HEENT: Pale palpebral conjunctivae, no ptosis, edentulous, moist buccal mucosa NECK : Supple, short, no tenderness CHEST : CTA, no tenderness HEART : Bradycardic, no obvious murmurs ABDOMEN: Some distention, nontender EXTREMITIES : No LE swelling/tenderness, incisional scar right shoulder, no other conspicuous deformities noted NEUROLOGIC : Coherent, chronic upper lip asymmetry , no other gross focality Principal Diagnosis Substernal chest pain relieved by nitroglycerin; Chest Pain; Coronary artery disease with unstable angina perctoris, concern for acute coronary artery syndrome (Chest Pain Coronary artery disease status post PCI to the RCA and LAD in a staged procedure 2016, with the last PCI on the LAD being complicated by a humerus fracture because an IV pole fell on the patient's arm. Substernal chest pain relieved by nitroglycerin (at home and in hospital) concern for acute coronary artery syndrome) Discharge Exam Constitutional WD/WN, vitals as above Eyes PERRL, conjunctivae normal, anicteric sclerae EOM intact bilaterally ENMT external ear and nose normal, oropharynx normal Respiratory normal respiratory effort, lungs clear to auscultation normal respiratory effort Cardiovascular Rate/Rhythm: regular rate and regular rhythm Gastrointestinal (Abdomen) normal bowel sounds, soft, nontender, no hepatosplenomegaly Musculoskeletal Head/Neck/Chest: normocephalic and head atraumatic Neurologic PERRL, EOMI, accommodation nl, no face palsy, no dysarthria CN's II-XI intact bilaterally Psychiatric A+Ox3, euthymic affect Discharge Data Allergies Allergy/AdvReac Type Severity Reaction Status Date / Time benzocaine Allergy Severe SLOUGHING Verified 04/14/19 01:54 OF SKIN clindamycin Allergy Intermediate RASH Verified 04/14/19 01:54 cyanocobalamin (vitamin B12) Allergy Intermediate Rash Verified 03/29/19 19:59 clobetasol Allergy Mild ITCHING Verified 04/14/19 01:54 doxycycline Allergy Mild RASH Verified 04/14/19 01:54 Penicillins Allergy Mild HIVES Verified 04/14/19 01:54 phenethylamine Allergy Mild Itching Verified 04/15/19 09:16 povidone-iodine Allergy Mild Hives Verified 04/14/19 01:54 [From Betadine] soap [From Betadine] Allergy Mild Hives Verified 04/14/19 01:54 tea tree Allergy Mild ITCHING Verified 04/14/19 01:54 Consultations 04/14/19 00:06 ED Decision to Admit Stat 04/14/19 03:44 Consult Cardiology Routine 04/15/19 08:57 Consult Cardiac Catheterization Routine Procedures Performed Operation Date: 04/15/19 10:00 Actual Procedures p Cath, Left with Cors and Aston Galeana Hai O Ajith, DO Ordered Studies 04/15/19 09:46 CL Cath Imgs for PACS use only Routine Hospital Course (1) Substernal chest pain relieved by nitroglycerin: Substernal chest pain relieved by nitroglycerin: Chest Pain Coronary artery disease status post PCI to the RCA and LAD in a staged procedure 2016, with the last PCI on the LAD being complicated by a humerus fracture because an IV pole fell on the patient's arm. Substernal chest pain relieved by nitroglycerin (at home and in hospital) - as per cardiology consult the patient has a history of coronary artery disease with previous rotational atherectomy of the right coronary artery with stent placement as well as stent placement in the LAD in 2017. He is having recurrent chest pain relieved with nitroglycerin. He has had a recent dobutamine stress test that was negative before he presents with the same symptoms. He also wants to have shoulder replacement surgery completed and will need preoperative clearance. -04/14/19 patient did express to daytime hospitalist cramping sensation of chest despite 2 troponins negative on this presentation. third troponin to be drawn as negative. EKG ordered. Lasix ordered. nitropaste ordered. 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 Francois outreach representative. The pain relieved by nitro again. as per Dr. Francois, hold off heparin drip for now and continue for planned cardiac cath for 04/15/19 -Summary of cardiac cath Findings: 70% proximal RCA in stent -no new stents were placed -patient had chest pain episode , after cardiac cath. EKG of sinus bradycardia of 48 bpm. patient given nitropaste and morphine and that resolved chest pain -cardiology service notified -outreach representative is discussing with [facility] in [place] and Dr. Hooker is accepting physician -cardiology started patient on nitro drip on 20 mcg/min and would like patient to go to [facility] in [place] by air transport History of Aortic aneurysm - Abdominal aorta measuring 3 cm in the past Hypertension. -on isosorbide History of Gracie filter in place: Chronic kidney disease. -monitor renal function History of tobacco abuse with resultant COPD. -on room air GERD. History of Sepulveda's esophagitis. history of anxiety -mood stable Gout history -on allopurinol at home Polyneuropathy history DVT ppx: heparin subcut Total Time Total Time Spent Total Time Spent (In Minutes): 40 minutes Total Time Includes: Examination of the Patient, Discharge Planning, Medication Reconciliation and Communication With Other Providers Discharge Plan Discharge Items Patient Disposition: Transfer Acute Care Hospital Reason For Visit: CHEST PAIN Discharge Diagnosis: Substernal chest pain relieved by nitroglycerin; Chest Pain; Coronary artery disease with unstable angina perctorais, concern for acute coronary artery syndrome Condition: Fair Discharge Goals: Improve disease control Activity: Per 'Additional Instructions' section Non-emergency contact: Primary Care Provider Call non-emergency contact if: you have any medication questions Follow-up/Referrals: Jacob Jones MD [Primary Care Provider] - Diet: Nothing by mouth Addtl Provider Instructions: Patient to be transferred to [facility] in [place] (Substernal chest pain relieved by nitroglycerin: Chest Pain Coronary artery disease status post PCI to the RCA and LAD in a staged procedure 2017, with the last PCI on the LAD being complicated by a humerus fracture because an IV pole fell on the patient's arm. Substernal chest pain relieved by nitroglycerin (at home and in hospital) - as per cardiology consult the patient has a history of coronary artery disease with previous rotational atherectomy of the right coronary artery with stent placement as well as stent placement in the LAD in 2017. He is having recurrent chest pain relieved with nitroglycerin. He has had a recent dobutamine stress test that was negative before he presents with the same symptoms. He also wants to have shoulder replacement surgery completed and will need preoperative clearance. -04/14/19 patient did express to daytime hospitalist cramping sensation of chest despite 2 troponins negative on this presentation. third troponin to be drawn as negative. EKG ordered. Lasix ordered. nitropaste ordered. 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 Francois outreach representative. The pain relieved by nitro again. as per Dr. Francois, hold off heparin drip for now and continue for planned cardiac cath for 04/15/19 --Summary of cardiac cath Findings: 70% proximal RCA in stent -no new stents were placed -patient had chest pain episode , after cardiac cath. EKG of sinus bradycardia of 48 bpm. patient given nitropaste and morphine and that resolved chest pain -cardiology service notified -outreach representative is discussing with [facility] in [place] and Dr. Hooker is accepting physician -cardiology started patient on nitro drip on 20 mcg/min and would like patient to go to [facility] in [place] by air transport) Prescriptions: Continued atorvastatin 80 mg tablet 80 mg PO QPM RF: 0 aspirin [Aspirin Low Dose] 81 mg Tablet,Delayed Release (Dr/Ec) 81 mg PO UD MDD ] PRN (Reason: rescue kit) RF: 0 triamcinolone acetonide 0.1 % cream 1 applic Topical BID RF: 0 pantoprazole 20 mg tablet,delayed release (DR/EC) 20 mg PO BID RF: 0 isosorbide mononitrate 60 mg tablet extended release 24 hr 60 mg PO QAM RF: 0 famotidine 20 mg tablet 20 mg PO QAM RF: 0 lorazepam 0.5 mg tablet 0.5 mg PO TID PRN (Reason: Anxiety) RF: 0 ferrous sulfate 325 mg (65 mg iron) Tablet 325 mg PO QPM RF: 0 nitroglycerin 0.4 mg tablet, sublingual 1 tab Sublingual UD PRN (Reason: Angina) RF: 0 docusate sodium 100 mg Capsule 100 mg PO BID PRN (Reason: Constipation) RF: 0 allopurinol 300 mg tablet 300 mg PO QAM RF: 0 metoprolol succinate 25 mg tablet extended release 24 hr 25 mg PO QAM RF: 0 oxybutynin chloride 5 mg tablet 5 mg PO BID RF: 0 cholecalciferol (vitamin D3) [Vitamin D3] 2,000 unit Capsule 2,000 unit PO QPM RF: 0 Combivent Respimat 20-100 mcg/actuation Mist 1 puff INHALATION QID PRN (Reason: Cough) RF: 0 albuterol sulfate 2.5 mg /3 mL (0.083 %) Solution For Nebulization 2.5 mg INHALATION Q4 PRN (Reason: Shortness Of Breath) RF: 0 budesonide [Pulmicort] 0.5 mg/2 mL Suspension For Nebulization 0.5 mg INHALATION BID RF: 0 Lyrica 25 mg Capsule 25 mg PO TID RF: 0 Brovana 15 mcg/2 mL Solution For Nebulization 15 mcg INHALATION BID RF: 0 miconazole nitrate [Antifungal Cream (miconazole)] 2 % Cream 1 applic TOPICAL DAILY PRN (Reason: NEEDED) RF: 0 prednisone [Deltasone] 20 mg Tablet PO DIRECTED PRN (Reason: RESCUE KIT) RF: 0 aspirin [Aspir-81] 81 mg Tablet,Delayed Release (Dr/Ec) 81 mg PO DAILY RF: 0 hydrocortisone acetate [Anusol-HC] 25 mg Suppository 25 mg VT DAILY PRN (Reason: Hemorrhoids) RF: 0 Centrum Silver 0.4-300-250 mg-mcg-mcg Tablet 1 tab PO QAM RF: 0 magnesium oxide 400 mg (241.3 mg magnesium) tablet 400 mg PO DAILY RF: 0 Discontinued valacyclovir [Valtrex] 1 gram Tablet 1,000 mg PO UD PRN (Reason: Cold Sores) RF: 0 azithromycin 250 mg Tablet PO DIRECTED PRN (Reason: RESCUE KIT) RF: 0 cephalexin 250 mg capsule 250 mg PO DAILY RF: 0 Stand-Alone Forms: Call Back Authorization, [facility] Discharge Orders: Discharge Order (Routine); Ordered 04/15/19 Ordered By: Zeke Bravo Admission Data Admit Date/Time: 04/14/19 10:45 Attending Provider: Zeke Bravo Admit Provider: Alonso Mccarthy Primary Care Provider: Jacob Jones Other Providers: Alonso Mccarthy ; Alphonso Casanova Thomas O Service: Telemetry
--- NOTE | 2019-04-15 14:40 | Cardiology Progress Note ---
Date of Service April 15, 2019 Subjective Patient reassessed for chest pain in coverage of Dr Canseco. Initially has CP post cardiac cath, without acute EKG changes at just after 1300. CP then relieved after IV morphine and topical nitroglycerin. Pt had recurrent chest discomfort. Stat repeat EKG at 14:14 reveals SB at 50 , without acute ST changes. No ST elevation. Pt to be transferred to [facility] for PCI given complex anatomy, anticipated need for repeat rotational atherectomy no available at this institution. Plan: Start IV nitroglycerin, at 20 mcg / min. Change mode of transportation from [facility] ground to air to [facility] room 857 at [facility]. Case discussed with Dr Ellsworth , accepting physician at [facility] and I updated him regarding the above developments. Based on how pt progresses clinically on nitroglycerin , will determine timing of PCI. No ST elevation at present , so not urgent and given CKD if we can achieve relief of angina with medication and separate contrast exposure by 1 day that would be ideal. If ongoing angina after nitro gtt or if develops ST elevation will proceed with PCI sooner on an emergent basis. Discussed plan with nursing and Dr Bravo. Results & Data Vital Signs (Past 12 Hours) Vital Signs Temp Pulse Pulse Pulse Resp BP Pulse Ox 04/15/19 14:37 54 L 148/88 H 94 04/15/19 13:34 36.3 C L 59 L 17 110/77 94 04/15/19 13:01 55 L 19 121/76 91 04/15/19 12:49 57 L 19 129/80 90 04/15/19 12:41 55 L 124/78 90 04/15/19 12:26 36.5 C 56 L 19 148/82 H 90 04/15/19 07:10 51 L 18 96 04/15/19 07:06 36.4 C L 98 H 18 160/95 H 95 04/15/19 07:00 53 L 04/15/19 03:31 36.4 C L 54 L 19 134/81 95
[2019-04-15] MEDS: PANTOprazole 40 MG TAB PO SCH (15:19)
[2019-04-15] MEDS: ALLOPURINOL 300 MG TAB PO SCH (15:19)
[2019-04-15] MEDS: FAMOTIDINE 20 MG TAB PO SCH (15:19)
--- NOTE | 2019-04-15 16:01 | Cardiology Progress Note ---
Date of Service April 15, 2019 Subjective Pt reassessed, in ICU room 106. He was transferred to first floor ICU for titration of nitroglycerin infusion pending arrival of flight crew. Flight crew at bedside receiving report and transferring nitro gtt to portable infusion pump. CP down from 4-5/10 to 3-4 /10, no acute distress. BP Stable. Witness pt being transferred to flight litter and out of ICU in route to [facility]. Results & Data Vital Signs (Past 12 Hours) Vital Signs Temp Pulse Pulse Pulse Resp BP BP 04/15/19 15:14 36.3 C L 54 L 59 L 17 148/88 H 145/83 H 04/15/19 14:37 54 L 148/88 H 04/15/19 13:34 36.3 C L 59 L 17 110/77 04/15/19 13:01 55 L 19 121/76 04/15/19 12:49 57 L 19 129/80 04/15/19 12:41 55 L 124/78 04/15/19 12:26 36.5 C 56 L 19 148/82 H 04/15/19 07:10 51 L 18 04/15/19 07:06 36.4 C L 98 H 18 160/95 H 04/15/19 07:00 53 L Pulse Ox 04/15/19 15:14 94 04/15/19 14:37 94 04/15/19 13:34 94 04/15/19 13:01 91 04/15/19 12:49 90 04/15/19 12:41 90 04/15/19 12:26 90 04/15/19 07:10 96 04/15/19 07:06 95 04/15/19 07:00
== END 2019-04-15 16:00 | disposition short-term general hospital (02) | DRG 287 ==
LOC: ED 22:28 → 2S 22:28 → 1E 04-15 15:18

== ENCOUNTER 2019-11-03 00:36 | Observation (INO) ==
[2019-11-03] MEDS ORDERED: FAMOTIDINE 20MG/5ML IV PUSH IV STA (01:03)
[2019-11-03] MEDS ORDERED: NITROGLYCERIN 2% OINTMENT 30GM TUBE EXT STA (01:04)
[2019-11-03 01:10] LABS: Eosinophils # (auto) 0.09 K/uL (0-0.5); Eosinophils % (auto) 0.9 %; Hematocrit (blood only) 35.6 % (42-52); Lymphocytes # (auto) 1.51 K/uL (1.2-3.4); Lymphocytes % (auto) 15.7 %; Mean Corpuscular Hemoglobin 34.5 pg (25-34); Mean Corpuscular Hgb Conc 33.7 g/dL (32-36); Mean Corpuscular Volume 102.3 fL (80-100); Mean Platelet Volume 10.1 fL (7.4-10.4); Monocytes # (auto) 0.88 K/uL (0.11-0.59); Monocytes % (auto) 9.2 %; Neutrophils # (auto) 7.03 K/uL (1.4-6.5); Neutrophils % (auto) 73.2 %; Platelet Count 183 K/uL (130-400); RDW Coefficient of Variation 14.3 % (11.5-14.5); RDW Standard Deviation 52.7 fL (36.4-46.3); Red Blood Count 3.48 M/uL (4.7-6.1); White Blood Count 9.61 K/uL (4.8-10.8)
[2019-11-03] MEDS ORDERED: SODIUM CHLORIDE 0.9% 1000ML 1,000 ML IV SCH (01:15)
--- NOTE | 2019-11-03 01:34 | XRay Report ---
SINGLE VIEW CHEST CLINICAL HISTORY: Atypical chest pain. FINDINGS: An AP, portable, upright chest radiograph is compared to study dated 04/13/2019 and correlat ed with chest CT dated 04/12/2018. The examination is degraded by portable technique and patient rotat ion. The heart is enlarged and there is atherosclerotic calcification of the thoracic aorta. The pulm onary vasculature is noncongested. Emphysema and chronic interstitial thickening are similar to previ ous. There is bibasilar scarring/atelectasis. No airspace consolidation or large pleural effusion is identified. No pneumothorax is seen. The skeletal structures are osteopenic. The bony thorax is gross ly intact. Bilateral shoulder arthroplasties are in place. IMPRESSION: Cardiomegaly and emphysema with no acute cardiopulmonary abnormality. Electronically signed by: Braden Rucker M.D. 11/03/2019 1:32 AM
[2019-11-03 01:38] LABS: Albumin Level 3.3 gm/dl (3.4-5.0); BUN Creatinine Ratio 14.5 (10-20); Bilirubin,Total 0.4 mg/dl (0.2-1); Calcium 8.5 mg/dl (8.5-10.1); Creatinine Clr Calc Pharmacy 32.5 ml/min; Est GFR (African American) 32.3; Est GFR (Non-African American) 27.8; Globulin 3.4 gm/dl (2.5-4.0); Potassium 3.8 mmol/L (3.5-5.1); Total Protein 6.7 gm/dl (6.4-8.2); Troponin I 0.035 ng/ml (0-0.045)
[2019-11-03] MEDS ORDERED: fentaNYL citrate 100 MCG/2 ML VIAL IV STA (01:46)
[2019-11-03 01:56] LABS: INR 1.1 (0.9-1.1); Prothrombin Time 11.4 Seconds (9.0-12.0)
[2019-11-03 02:08] LABS: D Dimer 1330 ug/L FEU (0-500)
[2019-11-03] MEDS ORDERED: ACETAMINOPHEN 1,000 MG/100 ML VIAL IV STA (03:37)
[2019-11-03] MEDS ORDERED: ALUMINUM/MAGNESIUM SUSP 30 ML UDC PO STA (03:37)
[2019-11-03] MEDS ORDERED: AMLODIPINE BESYLATE 5 MG TAB PO ONE (04:13)
[2019-11-03 05:05] LABS: Magnesium 1.5 mg/dl (1.8-2.4); Troponin I 0.031 ng/ml (0-0.045)
--- NOTE | 2019-11-03 05:41 | History & Physical Report ---
Date of Service November 03, 2019 Assessment & Plan (1) Chest pain: possible unstable angina History CAD status post stenting Hypertension, elevated History of PVD as per records Hyperlipidemia on statin Rx Chronic bradycardia chronic respiratory failure secondary to COPD on home O2 at night, no acute lung issues currently past tobacco abuse CRI, creatinine at baseline chronic anemia secondary to CKD, hemoglobin at baseline prostate cancer status post surgery Hyperglycemia, possible prediabetes, hemoglobin A1c of 5.07 April 2019 OBS PCU Continue antiplatelet, beta-sabi, statin meds Follow troponin, IV heparin if with subsequent troponin elevation Cardiology consult RE chest pain, history of CAD status post stent Add Norvasc to blood pressure regimen, further increase in beta-sabi dose limited by bradycardia Check hemoglobin A1c DVT prophylaxis. Heparin subcu Full code History of Present Illness Chief Complaint: Chest pain Primary Care Provider: Jacob Jones MD History obtained from patient and records. Medical history significant for chronic respiratory failure secondary to COPD on home O2 at night, past tobacco abuse, CAD status post stenting, hx PVD, hypertension, hyperlipidemia, chronic anemia (baseline hemoglobin 11-12), chronic renal insufficiency (baseline creatinine 2), gout, HSV, prostate cancer status post surgery. Recent confinement April 2019 for chest pain. Patient transferred to [facility]. Subsequent PCI done for RCA stent in-stent restenosis. Last night patient was watching television when he developed midsternal chest pressure going to his jaw, indigestion-like similar to his heart attack episode in the past. No immediate relief with nitro and antacid intake at home. Patient brought to the ER for evaluation. Discomfort relieved by nitro paste and GI cocktail administration at the ER. Medical History as above Surgical History : Prostatectomy, hip surgery, shoulder surgery, IVC filter placement Family History : Heart disease, COPD, throat cancer Personal/Social history : Past tobacco abuse, occasional EtOH intake, retired [employer] Allergies Allergy/AdvReac Type Severity Reaction Status Date / Time benzocaine Allergy Severe SLOUGHING Verified 11/03/19 01:34 OF SKIN clindamycin Allergy Intermediate RASH Verified 11/03/19 01:34 cyanocobalamin (vitamin B12) Allergy Intermediate Rash Verified 11/03/19 01:34 clobetasol Allergy Mild ITCHING Verified 11/03/19 01:34 doxycycline Allergy Mild RASH Verified 11/03/19 01:34 Penicillins Allergy Mild HIVES Verified 11/03/19 01:34 phenethylamine Allergy Mild Itching Verified 11/03/19 01:34 povidone-iodine Allergy Mild Hives Verified 11/03/19 01:34 [From Betadine] soap [From Betadine] Allergy Mild Hives Verified 11/03/19 01:34 tea tree Allergy Mild ITCHING Verified 11/03/19 01:34 Home Medications Home Medications Medication Instructions Recorded Confirmed Type Combivent Respimat 1 puff INHALATION QID PRN 06/14/18 11/03/19 History allopurinol 300 mg PO QAM 06/14/18 11/03/19 History aspirin [Aspirin Low Dose] 81 mg PO UD PRN MDD ] 06/14/18 11/03/19 History atorvastatin 80 mg PO QPM 06/14/18 11/03/19 History cholecalciferol (vitamin D3) 2,000 unit PO QPM 06/14/18 11/03/19 History [Vitamin D3] docusate sodium 100 mg PO BID PRN 06/14/18 11/03/19 History famotidine 20 mg PO QAM 06/14/18 11/03/19 History ferrous sulfate 325 mg PO QPM 06/14/18 11/03/19 History isosorbide mononitrate 60 mg PO QAM 06/14/18 11/03/19 History lorazepam 0.5 mg PO TID PRN 06/14/18 11/03/19 History metoprolol succinate 25 mg PO QAM 06/14/18 11/03/19 History nitroglycerin 1 tab SUBLINGUAL UD PRN 06/14/18 11/03/19 History oxybutynin chloride 5 mg PO BID 06/14/18 11/03/19 History triamcinolone acetonide 1 applic TOPICAL BID 06/14/18 11/03/19 History Brovana 15 mcg INHALATION BID 01/07/19 11/03/19 History albuterol sulfate 2.5 mg INHALATION Q4 PRN 01/07/19 11/03/19 History budesonide [Pulmicort] 0.5 mg INHALATION BID 01/07/19 11/03/19 History pregabalin [Lyrica] 25 mg PO TID 01/07/19 11/03/19 History Centrum Silver 1 tab PO QAM 03/29/19 11/03/19 History aspirin [Aspir-81] 81 mg PO DAILY 03/29/19 11/03/19 History hydrocortisone acetate [Anusol-HC] 25 mg [place] DAILY PRN 03/29/19 11/03/19 History miconazole nitrate [Antifungal 1 applic TOPICAL DAILY PRN 03/29/19 11/03/19 History Cream (miconazole)] prednisone [Deltasone] 0 mg PO DIRECTED PRN 03/29/19 11/03/19 History azithromycin 250 mg PO DAILY PRN 11/03/19 11/03/19 History clopidogrel [Plavix] 75 mg PO DAILY 11/03/19 11/03/19 History cyanocobalamin (vitamin B-12) 1,000 mcg PO DAILY 11/03/19 11/03/19 History magnesium oxide 400 mg PO BID #60 tab 11/03/19 Rx pantoprazole 40 mg PO BID #60 tab 11/03/19 Rx Past Med/Surg History Medical History (Updated 11/03/19 @ 10:05 by Jama Francois DO) HERNANDEZ (acute kidney injury) (Acute) Anxiety Aortic aneurysm Barretts esophagus Blood clotting disorder Chronic back pain Chronic kidney disease, stage 3 COPD (chronic obstructive pulmonary disease) inhalers and nebulizers daily Coronary artery disease (Chronic) Diverticular disease GERD (gastroesophageal reflux disease) Gout Gracie filter in place (Chronic) Hearing deficit Hyperlipidemia Hypertension Myocardial Infarction 2016--follows with Dr. Casanova Neuropathy On home oxygen therapy 3-3.5L N/C at HS Osteoarthritis Prostate cancer sx Recurrent genital herpes simplex (Chronic Unknown) Sleep apnea oxygen at night Temporomandibular joint disorder Unstable angina Surgical History History of arthroscopic knee surgery History of bilateral cataract extraction History of cardiac cath x5--last 2016 History of colonoscopy History of esophagogastroduodenoscopy (EGD) History of heart artery stent multiple--last 2016 History of hernia repair epigastric History of left shoulder replacement History of lumbar surgery History of mandibular surgery tmj repair History of prostate biopsy malignant History of prostatectomy History of right inguinal hernia repair History of right shoulder replacement History of tooth extraction all teeth removed Status post correction of deviated nasal septum Status post total hip replacement, bilateral Social History Preferred Language: Malay Communication Ability: Effective Room Service Food Service Attendant Required: No Beliefs That Will Affect Care: None Current Living Situation: Spouse Current Living Situation Comment: Lives with and son Other Information That Helps Us Care for You: No Feels Safe at Home: Yes Safety Concerns: Feels Safe At This Time Smoking Status: Former smoker Tobacco Type: cigars ; Cigarettes Per Day: 1 ; Do You Dip or Chew Tobacco: No ; Second Hand Exposure: No ; Tobacco Cessation Education Requested by Patient: No Hx Alcohol Use: No Hx Substance Use: No Review of Systems Review of Systems: As per HPI, all 10 systems reviewed, chronic shoulder pain, recent backache from fall in tub, all other ROS negative Physical Exam Physical Exam: GENERAL: Comfortable, obese, pleasant, no respiratory distress SKIN: Normal color, warm HEENT: Bespectacled, pale palpebral conjunctivae, no ptosis, dry buccal mucosa NECK : Supple, no tenderness CHEST : CTA, no tenderness HEART : Bradycardic, no obvious murmurs ABDOMEN: Some distention, nontender EXTREMITIES : Incisional scar right shoulder, no LE swelling/tenderness, no other conspicuous deformities noted NEUROLOGIC : Coherent, no facial asymmetry, no other gross focality Results & Data Vital Signs (Past 12 Hours) Vital Signs Temp Pulse Pulse Resp BP BP Pulse Ox 11/03/19 05:26 54 L 18 145/87 H 95 11/03/19 04:21 56 L 18 144/75 H 93 11/03/19 03:31 56 L 18 157/87 H 94 11/03/19 02:01 59 L 18 163/86 H 96 11/03/19 01:16 60 18 150/97 H 96 11/03/19 00:49 36.5 C 69 20 159/88 H 96 Laboratory Results Laboratory Results WBC 9.61 K/uL (4.8-10.8) 11/03/19 01:01 RBC 3.48 M/uL (4.7-6.1) L 11/03/19 01:01 Hgb 12.0 g/dL (14.0-18.0) L 11/03/19 01:01 Hct 35.6 % (42-52) L 11/03/19 01:01 MCV 102.3 fL (80-100) H 11/03/19 01:01 MCH 34.5 pg (25-34) H 11/03/19 01:01 MCHC 33.7 g/dL (32-36) 11/03/19 01:01 RDW Std Deviation 52.7 fL (36.4-46.3) H 11/03/19 01:01 RDW Coeff of Zoë 14.3 % (11.5-14.5) 11/03/19 01:01 Plt Count 183 K/uL (130-400) 11/03/19 01:01 MPV 10.1 fL (7.4-10.4) 11/03/19 01:01 Immature Gran % (Auto) 1.0 % 11/03/19 01:01 Neut % (Auto) 73.2 % 11/03/19 01:01 Lymph % (Auto) 15.7 % 11/03/19 01:01 [place] % (Auto) 9.2 % 11/03/19 01:01 Eos % (Auto) 0.9 % 11/03/19 01:01 Baso % (Auto) 0.0 % 11/03/19 01:01 Immature Gran # (Auto) 0.10 K/uL (0.00-0.02) H 11/03/19 01:01 Neut # (Auto) 7.03 K/uL (1.4-6.5) H 11/03/19 01:01 Lymph # (Auto) 1.51 K/uL (1.2-3.4) 11/03/19 01:01 [place] # (Auto) 0.88 K/uL (0.11-0.59) H 11/03/19 01:01 Eos # (Auto) 0.09 K/uL (0-0.5) 11/03/19 01:01 Baso # (Auto) 0.00 K/uL (0-0.2) 11/03/19 01:01 PT 11.4 Seconds (9.0-12.0) 11/03/19 01:33 INR 1.1 (0.9-1.1) 11/03/19 01:33 D-Dimer 1330 ug/L FEU (0-500) H* 11/03/19 01:33 Sodium 142 mmol/L (136-145) 11/03/19 01:01 Potassium 3.8 mmol/L (3.5-5.1) 11/03/19 01:01 Chloride 111 mmol/L (98-107) H 11/03/19 01:01 Carbon Dioxide 23 mmol/L (21-32) 11/03/19 01:01 Anion Gap 8.0 (3-11) 11/03/19 01:01 BUN 32 mg/dl (7-18) H 11/03/19 01:01 Creatinine 2.24 mg/dl (0.6-1.4) H 11/03/19 01:01 Est Cr Clr Drug Dosing 32.5 ml/min 11/03/19 01:01 Est GFR ( Amer) 32.3 11/03/19 01:01 Est GFR (Non-Af Amer) 27.8 11/03/19 01:01 BUN/Creatinine Ratio 14.5 (10-20) 11/03/19 01:01 Glucose 120 mg/dl (70-99) H 11/03/19 01:01 Calcium 8.5 mg/dl (8.5-10.1) 11/03/19 01:01 Magnesium 1.5 mg/dl (1.8-2.4) L 11/03/19 04:31 Total Bilirubin 0.4 mg/dl (0.2-1) 11/03/19 01:01 AST 32 U/L (15-37) 11/03/19 01:01 ALT 28 U/L (12-78) 11/03/19 01:01 Alkaline Phosphatase 133 U/L (45-117) H 11/03/19 01:01 Troponin I 0.031 ng/ml (0-0.045) 11/03/19 04:31 NT-Pro-B Natriuret Pep 1443 pg/ml (0-900) H 11/03/19 01:01 Total Protein 6.7 gm/dl (6.4-8.2) 11/03/19 01:01 Albumin 3.3 gm/dl (3.4-5.0) L 11/03/19 01:01 Globulin 3.4 gm/dl (2.5-4.0) 11/03/19 01:01 Albumin/Globulin Ratio 1.0 (0.9-2) 11/03/19 01:01 Lipase 136 U/L (73-393) 11/03/19 01:01 Specimen Hemolysis 11/03/19 01:01 Diagnostic Findings Chest x-ray : Cardiomegaly and emphysema with no acute cardiopulmonary abnormality. CT abdomen pelvis initial read: Stable aortic aneurysm, stable hiatal hernia. IVC filter. Midline ventral hernia. EKG as per my interpretation : Rate 55, sinus bradycardia, LAD, LAFB, T wave flattening inferior leads
--- NOTE | 2019-11-03 07:11 | CT Scan Report ---
CT SCAN OF THE ABDOMEN AND PELVIS WITHOUT IV CONTRAST CLINICAL HISTORY: Upper abdominal pain. COMPARISON STUDY: Abdominal CT dated 04/12/2018. TECHNIQUE: CT scan of the abdomen and pelvis is performed from the lung bases to the proximal femora. Images are reviewed in the axial, sagittal, and coronal planes. IV contrast was not administered for this examination as per the referring clinician. Note that the examination was performed in suboptim al fashion without oral and IV contrast. A dose lowering technique was utilized adhering to the [place] of [place]ST[place]. The examination is degraded by streak artifact from the right arm which could not be elevated above the abdomen. CT DOSE: 1194.46 mGy.cm FINDINGS: Lung bases: The heart is enlarged and without pericardial effusion. The coronary arteries are densely calcified. A calcified granuloma seen in the left lower lobe. The lung bases are otherwise clear not ing bibasilar scarring/atelectasis. There is a moderate hiatal hernia. Liver: The unenhanced liver is normal in size, contour, and attenuation. There is no intrahepatic katie iary ductal dilatation. Gallbladder: Unremarkable. Spleen: Normal in size and attenuation. Pancreas: The unenhanced pancreas is mildly atrophic and grossly unremarkable. Adrenal glands: Unremarkable. Kidneys: The unenhanced kidneys are atrophic and without hydronephrosis. There are no renal calculi i dentified. There are small renovascular calcifications. There is no evidence of contour deforming keyon al mass lesion. Abdominal vasculature: There is advanced atherosclerotic calcification of the abdominal aorta. An inf rarenal abdominal aortic aneurysm measures up to 3.4 cm. An infrarenal IVC filter is in place. Bowel: There is mild colonic diverticulosis without CT evidence of acute diverticulitis. Moderate con stipation is observed. A ventral hernia in the pelvic midline contains nonobstructed small bowel loop s. No bowel obstruction is seen. The appendix is well-visualized and normal. There is a duodenal div erticulum. Peritoneum: There is no intraperitoneal free air or abdominal ascites. There is a fat-containing umbi lical hernia. Lymphadenopathy: None. Pelvic viscera: Evaluation of the pelvis is severely degraded by streak artifact from bilateral hip a rthroplasties. The prostate gland is markedly enlarged and heterogeneous. The bladder is decompressed and could not be assessed. Skeletal structures: The skeletal structures are osteopenic. There is moderate lungs several spondylo sis with evidence of previous hemilaminectomy the lower lumbar spine. A 4.3 cm benign-appearing expan sile lesion in the left iliac wing is unchanged from previous. No destructive bony lesion is seen. Bi lateral hip arthroplasties are in place. IMPRESSION: 1. There are no acute infectious or inflammatory findings in the abdomen or pelvis. 2. Moderate constipation. 3. There is a 3.4 cm infrarenal abdominal aortic aneurysm. 4. Cardiomegaly. 5. A ventral hernia in the pelvic midline contains nonobstructed small bowel loops. 6. Moderate hiatal hernia. 7. Additional findings as above. ACT 112: Negative or not required by law. Electronically signed by: Braden Rucker M.D. 11/03/2019 7:09 AM
[2019-11-03] MEDS ORDERED: HYDROmorphone INJ 0.5 MG/0.5 ML SYR IV PRN (07:34)
[2019-11-03] MEDS ORDERED: TRAMADOL HCL 50 MG TABLET PO PRN (07:34)
[2019-11-03] MEDS ORDERED: PROMETHAZINE HCL 12.5 MG in SODIUM CHLORIDE 0.9% 50 ML IV PRN (07:34)
[2019-11-03] MEDS ORDERED: NITROGLYCERIN SL 0.4 MG/TAB TAB SL PRN (07:34)
[2019-11-03] MEDS ORDERED: DOCUSATE SODIUM 100 MG CAP PO PRN (07:34)
[2019-11-03] MEDS ORDERED: ACETAMINOPHEN 325 MG TAB PO PRN (07:34)
[2019-11-03] MEDS ORDERED: LORazepam 0.5 MG TAB PO PRN (07:34)
[2019-11-03] MEDS ORDERED: FORMOTEROL 20 MCG/2 ML VIAL INH SCH (08:00)
[2019-11-03] MEDS ORDERED: BUDESONIDE 0.5 MG/2 ML VIAL (PULMICORT) INH SCH (08:00)
[2019-11-03] MEDS ORDERED: SODIUM CHLOR 0.45% + 20MEQ KCL 20 MEQ/1,000 ML BAG IV ONE (08:00)
[2019-11-03] MEDS ORDERED: PNEUMOCOCCAL POLYSACCHARIDES 25 MCG/0.5 ML VIAL/SYR IM ONE (08:17)
[2019-11-03] MEDS ORDERED: PNEUMOCOCCAL ADMINISTRATION CHARGE ONE (08:17)
[2019-11-03] MEDS: HEPARIN SOD 5,000 UNIT/0.5 ML VIAL SQ SCH ×2 (08:30→14:01)
[2019-11-03] MEDS: PREGABALIN 25 MG CAP PO SCH ×2 (08:31→14:01)
[2019-11-03] MEDS ORDERED: AMLODIPINE BESYLATE 5 MG TAB PO SCH (09:00)
[2019-11-03] MEDS ORDERED: allopurinoL 300 MG TAB PO SCH (09:00)
[2019-11-03] MEDS ORDERED: PANTOprazole 40 MG TAB PO SCH (09:00)
[2019-11-03] MEDS ORDERED: METOPROLOL SUCC 25MG EXT REL TAB PO SCH (09:00)
[2019-11-03] MEDS ORDERED: FAMOTIDINE 20 MG TAB PO SCH (09:00)
[2019-11-03] MEDS ORDERED: OXYBUTYNIN CHLORIDE 5 MG TAB PO SCH (09:00)
[2019-11-03] MEDS ORDERED: CYANOCOBALAMIN 500 MCG TABLET (VITAMIN B-12) PO SCH (09:00)
[2019-11-03] MEDS ORDERED: CLOPIDOGREL BISULFATE 75 MG TAB PO SCH (09:00)
--- NOTE | 2019-11-03 09:46 | Cardiology Consultation ---
Date of Consultation November 03, 2019 Assessment & Plan (1) Chest pain: (2) Epigastric pain: (3) Chronic kidney disease: (4) Hypertension: (5) CAD (coronary artery disease): (6) Hypothyroid: (7) COPD (chronic obstructive pulmonary disease): This is a 74-year-old male gentleman who has diffuse arteriosclerotic vascular disease and has undergone multiple coronary interventions with the most which since being in 2019 for in-stent restenosis. He has tobacco associated vascular and lung disease. His cardiac markers are negative despite having hours of discomfort including some residual this morning. I think it is best if we just observe this patient. Provide him with a PPI. If he remains clinically stable then I think we can discharge him to outpatient follow-up through our clinic. History of Present Illness Attending Physician: Ro Najera, DO History of Present Illness This is a 75-year-old male patient with diffuse arteriovascular disease. He has a complex cardiac history as outlined below. I last saw him in my clinic in 2018. 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 Last evening he had a large spaghetti dinner late in the evening and then working up later with abdominal and epigastric discomfort. He started with antacids which did not improve his symptoms. He became concerned because of his previous cardiac history and then took 3 sublingual nitroglycerin with a modest amount of improvement. He then went to the emergency department. He was given a GI cocktail there and he states that for the most part resolved his symptoms. He still has some residual epigastric discomfort but nothing like it was. His cardiac markers have been negative. His EKG is unchanged. He denies shortness of breath. He has had no activity related angina which he describes as neck and jaw discomfort. Past Medical History: 1. Coronary artery disease status post rotational arthrectomy and stent placement to the RCA May 2017 2. Staged PCI to the LAD June 2017 complicated by IV pole following on his right shoulder and subsequent shoulder pain 3. Recurrent chest pain with InStent restenoses of his RCA April 2019 and sub sequent PCI 4. Shoulder pain surgery delayed by dual anti-platelet therapy 5. Chronic kidney disease 6. History of tobacco abuse with resultant COPD 7. GERD next number history of Sepulveda's esophagitis 8. Hypertension 9. Polyneuropathy. Allergies Allergy/AdvReac Type Severity Reaction Status Date / Time benzocaine Allergy Severe SLOUGHING Verified 11/03/19 01:34 OF SKIN clindamycin Allergy Intermediate RASH Verified 11/03/19 01:34 cyanocobalamin (vitamin B12) Allergy Intermediate Rash Verified 11/03/19 01:34 clobetasol Allergy Mild ITCHING Verified 11/03/19 01:34 doxycycline Allergy Mild RASH Verified 11/03/19 01:34 Penicillins Allergy Mild HIVES Verified 11/03/19 01:34 phenethylamine Allergy Mild Itching Verified 11/03/19 01:34 povidone-iodine Allergy Mild Hives Verified 11/03/19 01:34 [From Betadine] soap [From Betadine] Allergy Mild Hives Verified 11/03/19 01:34 tea tree Allergy Mild ITCHING Verified 11/03/19 01:34 Home Medications Home Medications Medication Instructions Recorded Confirmed Type Combivent Respimat 1 puff INHALATION QID PRN 06/14/18 11/03/19 History allopurinol 300 mg PO QAM 06/14/18 11/03/19 History aspirin [Aspirin Low Dose] 81 mg PO UD PRN MDD ] 06/14/18 11/03/19 History atorvastatin 80 mg PO QPM 06/14/18 11/03/19 History cholecalciferol (vitamin D3) 2,000 unit PO QPM 06/14/18 11/03/19 History [Vitamin D3] docusate sodium 100 mg PO BID PRN 06/14/18 11/03/19 History famotidine 20 mg PO QAM 06/14/18 11/03/19 History ferrous sulfate 325 mg PO QPM 06/14/18 11/03/19 History isosorbide mononitrate 60 mg PO QAM 06/14/18 11/03/19 History lorazepam 0.5 mg PO TID PRN 06/14/18 11/03/19 History metoprolol succinate 25 mg PO QAM 06/14/18 11/03/19 History nitroglycerin 1 tab SUBLINGUAL UD PRN 06/14/18 11/03/19 History oxybutynin chloride 5 mg PO BID 06/14/18 11/03/19 History pantoprazole 20 mg PO BID 06/14/18 11/03/19 History triamcinolone acetonide 1 applic TOPICAL BID 06/14/18 11/03/19 History Brovana 15 mcg INHALATION BID 01/07/19 11/03/19 History albuterol sulfate 2.5 mg INHALATION Q4 PRN 01/07/19 11/03/19 History budesonide [Pulmicort] 0.5 mg INHALATION BID 01/07/19 11/03/19 History pregabalin [Lyrica] 25 mg PO TID 01/07/19 11/03/19 History Centrum Silver 1 tab PO QAM 03/29/19 11/03/19 History aspirin [Aspir-81] 81 mg PO DAILY 03/29/19 11/03/19 History hydrocortisone acetate [Anusol-HC] 25 mg [place] DAILY PRN 03/29/19 11/03/19 History miconazole nitrate [Antifungal 1 applic TOPICAL DAILY PRN 03/29/19 11/03/19 History Cream (miconazole)] prednisone [Deltasone] 0 mg PO DIRECTED PRN 03/29/19 11/03/19 History azithromycin 250 mg PO DAILY PRN 11/03/19 11/03/19 History clopidogrel [Plavix] 75 mg PO DAILY 11/03/19 11/03/19 History cyanocobalamin (vitamin B-12) 1,000 mcg PO DAILY 11/03/19 11/03/19 History Patient History Medical History (Updated 11/03/19 @ 10:05 by Jama Francois DO) HERNANDEZ (acute kidney injury) (Acute) Anxiety Aortic aneurysm Barretts esophagus Blood clotting disorder Chronic back pain Chronic kidney disease, stage 3 COPD (chronic obstructive pulmonary disease) inhalers and nebulizers daily Coronary artery disease (Chronic) Diverticular disease GERD (gastroesophageal reflux disease) Gout Gracie filter in place (Chronic) Hearing deficit Hyperlipidemia Hypertension Myocardial Infarction 2016--follows with Dr. Casanova Neuropathy On home oxygen therapy 3-3.5L N/C at HS Osteoarthritis Prostate cancer sx Recurrent genital herpes simplex (Chronic Unknown) Sleep apnea oxygen at night Temporomandibular joint disorder Unstable angina Surgical History History of arthroscopic knee surgery History of bilateral cataract extraction History of cardiac cath x5--2016 History of colonoscopy History of esophagogastroduodenoscopy (EGD) History of heart artery stent multiple--last 2016 History of hernia repair epigastric History of left shoulder replacement History of lumbar surgery History of mandibular surgery tmj repair History of prostate biopsy malignant History of prostatectomy History of right inguinal hernia repair History of right shoulder replacement History of tooth extraction all teeth removed Status post correction of deviated nasal septum Status post total hip replacement, bilateral Social History Preferred Language: Fijian Communication Ability: Effective Chief Creative Officer Required: No Beliefs That Will Affect Care: None Current Living Situation: Spouse Current Living Situation Comment: Lives with and son Other Information That Helps Us Care for You: No Feels Safe at Home: Yes Safety Concerns: Feels Safe At This Time Smoking Status: Former smoker Tobacco Type: cigars ; Cigarettes Per Day: 1 ; Do You Dip or Chew Tobacco: No ; Second Hand Exposure: No ; Tobacco Cessation Education Requested by Patient: No Hx Alcohol Use: No Hx Substance Use: No Results & Data Vital Signs (Past 12 Hours) Vital Signs Temp Pulse Pulse Resp BP BP Pulse Ox 11/03/19 09:00 57 L 18 95 11/03/19 08:37 62 138/85 11/03/19 07:32 36.4 C L 58 L 16 158/88 H 96 11/03/19 06:59 54 L 18 163/96 H 97 11/03/19 05:26 54 L 18 145/87 H 95 11/03/19 04:21 56 L 18 144/75 H 93 11/03/19 03:31 56 L 18 157/87 H 94 11/03/19 02:01 59 L 18 163/86 H 96 11/03/19 01:16 60 18 150/97 H 96 11/03/19 00:49 36.5 C 69 20 159/88 H 96 (1) Chronic kidney disease Chronic kidney disease stage: unspecified stage Qualified Code(s): N18.9 - Chronic kidney disease, unspecified (2) Hypertension Hypertension type: unspecified Qualified Code(s): I10 - Essential (primary) hypertension
[2019-11-03] MEDS ORDERED: ALUMINUM/MAGNESIUM SUSP 72 ML, LIDOCAINE HCL VISCOUS 2% 24 ML, BARCODE IDENTIFIER 1 EA PO PRN (10:30)
[2019-11-03] MEDS ORDERED: FAMOTIDINE 20 MG in SYRINGE 3 ML IV PRN (10:30)
--- NOTE | 2019-11-03 13:47 | Discharge Summary ---
Date of Service November 03, 2019 Admission HPI Per Admitting Provider History obtained from patient and records. Medical history significant for chronic respiratory failure secondary to COPD on home O2 at night, past tobacco abuse, CAD status post stenting, hx PVD, hypertension, hyperlipidemia, chronic anemia (baseline hemoglobin 11-12), chronic renal insufficiency (baseline creatinine 2), gout, HSV, prostate cancer status post surgery. Recent confinement April 2019 for chest pain. Patient transferred to [facility]. Subsequent PCI done for RCA stent in-stent restenosis. Last night patient was watching television when he developed midsternal chest pressure going to his jaw, indigestion-like similar to his heart attack episode in the past. No immediate relief with nitro and antacid intake at home. Patient brought to the ER for evaluation. Discomfort relieved by nitro paste and GI cocktail administration at the ER. Medical History as above Surgical History : Prostatectomy, hip surgery, shoulder surgery, IVC filter placement Family History : Heart disease, COPD, throat cancer Personal/Social history : Past tobacco abuse, occasional EtOH intake, retired [employer] Admission Exam Per Admitting Provider GENERAL: Comfortable, obese, pleasant, no respiratory distress SKIN: Normal color, warm HEENT: Bespectacled, pale palpebral conjunctivae, no ptosis, dry buccal mucosa NECK : Supple, no tenderness CHEST : CTA, no tenderness HEART : Bradycardic, no obvious murmurs ABDOMEN: Some distention, nontender EXTREMITIES : Incisional scar right shoulder, no LE swelling/tenderness, no other conspicuous deformities noted NEUROLOGIC : Coherent, no facial asymmetry, no other gross focality Principal Diagnosis Atypical chest pain Hypothyroidism Hypomagnesemia Discharge Data Allergies Allergy/AdvReac Type Severity Reaction Status Date / Time benzocaine Allergy Severe SLOUGHING Verified 11/03/19 01:34 OF SKIN clindamycin Allergy Intermediate RASH Verified 11/03/19 01:34 cyanocobalamin (vitamin B12) Allergy Intermediate Rash Verified 11/03/19 01:34 clobetasol Allergy Mild ITCHING Verified 11/03/19 01:34 doxycycline Allergy Mild RASH Verified 11/03/19 01:34 Penicillins Allergy Mild HIVES Verified 11/03/19 01:34 phenethylamine Allergy Mild Itching Verified 11/03/19 01:34 povidone-iodine Allergy Mild Hives Verified 11/03/19 01:34 [From Betadine] soap [From Betadine] Allergy Mild Hives Verified 11/03/19 01:34 tea tree Allergy Mild ITCHING Verified 11/03/19 01:34 Consultations 11/03/19 03:38 ED Decision to Admit Stat 11/03/19 07:34 Consult Cardiology Routine Ordered Studies 11/03/19 01:45 CT abd pelvis wo con Stat Hospital Course (1) Chest pain: 74 yo man with CAD presented with chest pain described as his index angina. He was admitted to telemetry and Cardiology was consulted. Serial cardiac enzymes were negative despite hours of chest pain. He was given a PPI and no further cardiac workup was indicated. At time of discharge he was mentating and ambulating at baseline. He was tolerating PO and oxygenating well on room air with complete resolution of symptoms. He was discharged in stable condition with close primary care follow-up recommended. Total Time Total Time Spent Total Time Spent (In Minutes): 60 Total Time Includes: Examination of the Patient, Discharge Planning, Medication Reconciliation and Communication With Other Providers Discharge Plan Discharge Items Patient Disposition: Home - Self-Care Reason For Visit: CHEST PAIN Discharge Diagnosis: Atypical chest pain Hypothyroidism Hypomagnesemia Condition on Discharge: Good Activity: Resume your previous activity Non-emergency contact: Primary Care Provider Call non-emergency contact if: you have any medication questions, your symptoms worsen, your pain is not controlled, your pain is worsening, your pain is unusual for you, your pain is concerning for you and you have a fever Follow-up/Referrals: Jacob Jones MD [Primary Care Provider] - Diet: Heart Healthy Addtl Attending Provider Instructions: Please take all medications as instructed on discharge list below. It is recommended that you follow-up with your primary care provider (PCP) within one week of discharge to ensure your pain has not returned, and to review all of your medications. Someone will contact you on Monday to set this up. Please continue taking your magnesium supplementation TWICE daily moving forward. Your magnesium was low in the hospital, and the increased PROTONIX may also add to your risk of low magnesium. Your thyroid level was checked while you were here, and this is consistent with your current symptoms of fatigue. You may need to be put on thyroid replacement therapy. This will need to be discussed with your PCP at follow-up in the next 1-2 weeks. It was a pleasure taking care of you! Please call if you have any questions or problems. You can reach a [facility] hospitalist on duty at [facility] 24 hours a day by calling [phone]. Take care of yourself. Ro Najera, [facility] Pending Studies at Discharge: No Stand-Alone Forms: Call Back Authorization, My [facility], Smoking Cessation Medications and DC Order Prescriptions: New pantoprazole 40 mg Tablet,Delayed Release (Dr/Ec) 40 mg PO BID Qty: 60 RF: 1 magnesium oxide 400 mg (241.3 mg magnesium) tablet 400 mg PO BID Qty: 60 RF: 1 Continued atorvastatin 80 mg tablet 80 mg PO QPM RF: 0 aspirin [Aspirin Low Dose] 81 mg Tablet,Delayed Release (Dr/Ec) 81 mg PO UD MDD ] PRN (Reason: rescue kit) RF: 0 triamcinolone acetonide 0.1 % cream 1 applic Topical BID RF: 0 isosorbide mononitrate 60 mg tablet extended release 24 hr 60 mg PO QAM RF: 0 famotidine 20 mg tablet 20 mg PO QAM RF: 0 lorazepam 0.5 mg tablet 0.5 mg PO TID PRN (Reason: Anxiety) RF: 0 ferrous sulfate 325 mg (65 mg iron) Tablet 325 mg PO QPM RF: 0 nitroglycerin 0.4 mg tablet, sublingual 1 tab Sublingual UD PRN (Reason: Angina) RF: 0 docusate sodium 100 mg Capsule 100 mg PO BID PRN (Reason: Constipation) RF: 0 allopurinol 300 mg tablet 300 mg PO QAM RF: 0 metoprolol succinate 25 mg tablet extended release 24 hr 25 mg PO QAM RF: 0 oxybutynin chloride 5 mg tablet 5 mg PO BID RF: 0 cholecalciferol (vitamin D3) [Vitamin D3] 2,000 unit Capsule 2,000 unit PO QPM RF: 0 Combivent Respimat 20-100 mcg/actuation Mist 1 puff INHALATION QID PRN (Reason: Cough) RF: 0 albuterol sulfate 2.5 mg /3 mL (0.083 %) Solution For Nebulization 2.5 mg INHALATION Q4 PRN (Reason: Shortness Of Breath) RF: 0 budesonide [Pulmicort] 0.5 mg/2 mL Suspension For Nebulization 0.5 mg INHALATION BID RF: 0 pregabalin [Lyrica] 25 mg Capsule 25 mg PO TID RF: 0 Brovana 15 mcg/2 mL Solution For Nebulization 15 mcg INHALATION BID RF: 0 miconazole nitrate [Antifungal Cream (miconazole)] 2 % Cream 1 applic TOPICAL DAILY PRN (Reason: NEEDED) RF: 0 prednisone [Deltasone] 20 mg Tablet 0 mg PO DIRECTED PRN (Reason: RESCUE KIT) RF: 0 aspirin [Aspir-81] 81 mg Tablet,Delayed Release (Dr/Ec) 81 mg PO DAILY RF: 0 hydrocortisone acetate [Anusol-HC] 25 mg Suppository 25 mg VA DAILY PRN (Reason: Hemorrhoids) RF: 0 Centrum Silver 0.4-300-250 mg-mcg-mcg Tablet 1 tab PO QAM RF: 0 clopidogrel [Plavix] 75 mg Tablet 75 mg PO DAILY RF: 0 azithromycin 250 mg Tablet 250 mg PO DAILY PRN (Reason: rescue) RF: 0 cyanocobalamin (vitamin B-12) 1,000 mcg Capsule 1,000 mcg PO DAILY RF: 0 Discontinued pantoprazole 20 mg tablet,delayed release (DR/EC) 20 mg PO BID RF: 0 Discharge Orders: Discharge Order (Routine); Ordered 11/03/19 Ordered By: Ro Najera Admission Data Admit Date/Time: 11/03/19 05:43 Attending Provider: Ro Najera Admit Provider: Alonso Mccarthy Primary Care Provider: Jacob Jones Other Providers: Alonso Mccarthy ; Jama Francois Other Interventions: Discharge Summary Assessment (RN) Last Done: 11/03/19 14:06 DC Date/Time DO NOT enter until pt leaves facility: 11/03/19 14:42
[2019-11-03] MEDS ORDERED: ASPIRIN 81 MG ECTAB PO SCH (14:00)
[2019-11-03] MEDS ORDERED: CHOLECALCIFEROL 1,000 UNITS 25 MCG TAB PO SCH (21:00)
[2019-11-03] MEDS ORDERED: ATORVASTATIN 40 MG TAB PO SCH (21:00)
[2019-11-03] MEDS ORDERED: FERROUS SULFATE 325 MG TAB PO SCH (21:00)
--- NOTE | 2019-11-03 21:58 | Electrocardiogram Report ---
Test Reason : Blood Pressure : / mmHG Vent. Rate : 059 BPM Atrial Rate : 059 BPM P-R Int : 194 ms QRS Dur : 084 ms QT Int : 412 ms P-R-T Axes : -27 001 -04 degrees QTc Int : 407 ms Sinus bradycardia Otherwise normal ECG When compared with ECG of 15-APR-2019 14:14, SC interval has decreased QT has shortened Confirmed by Star Mclaughlin ([id number]) on 11/03/2019 9:57:58 PM Referred By: REFERRED SELF Confirmed By:Star Mclaughlin
--- NOTE | 2019-11-04 01:17 | Emergency Department Note ---
Entered by Nabeel Bee acting as a scribe for History of Present Illness General Chief complaint: Chest Pain Stated complaint: CHEST PAIN Time Seen by Provider: 11/03/19 00:39 Source: patient History of Present Illness Onset (ago): day(s) (2330 last night) Location: abdomen (upper) Pain Consistency: + intermittent Associated symptoms: + other (Positive for jaw pain, SOB, and "black sticky stool." Negative for nausea and vomiting.) Treatments prior to arrival: other (Pepto, Pepcid, and nitroglycerin) The patient is a 74 year old male who presents to the emergency department with complaints of intermittent chest pain beginning at 2330 last night. The patient states that he has a significant heart history including a previous WI, and he notes that he has three cardiac stents. He reports that he woke up with upper abdominal pain around 2330 last night. The patient states that he has jaw pain that is worse on the right. He notes that he took Pepto, Pepcid, and three nitroglycerin with no relief of his symptoms. He reports that he has been SOB for the last three days. He also complains of black sticky stool for the last week. He states he does take iron. He denies any nausea and vomiting. The patient states that he also has a history of COPD. He notes that he is on Plavix. Patient states he was concerned because his prior cardiac episodes started with abdominal pain additionally. No recent change in medications or recent illness. No other trauma or change in activity. Patient denies any recent dietary changes. 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 Casanova. Home Medications Home Medications Medication Instructions Recorded Confirmed Type Combivent Respimat 1 puff INHALATION QID PRN 06/14/18 11/03/19 History allopurinol 300 mg PO QAM 06/14/18 11/03/19 History aspirin [Aspirin Low Dose] 81 mg PO UD PRN MDD ] 06/14/18 11/03/19 History atorvastatin 80 mg PO QPM 06/14/18 11/03/19 History cholecalciferol (vitamin D3) 2,000 unit PO QPM 06/14/18 11/03/19 History [Vitamin D3] docusate sodium 100 mg PO BID PRN 06/14/18 11/03/19 History famotidine 20 mg PO QAM 06/14/18 11/03/19 History ferrous sulfate 325 mg PO QPM 06/14/18 11/03/19 History isosorbide mononitrate 60 mg PO QAM 06/14/18 11/03/19 History lorazepam 0.5 mg PO TID PRN 06/14/18 11/03/19 History metoprolol succinate 25 mg PO QAM 06/14/18 11/03/19 History nitroglycerin 1 tab SUBLINGUAL UD PRN 06/14/18 11/03/19 History oxybutynin chloride 5 mg PO BID 06/14/18 11/03/19 History triamcinolone acetonide 1 applic TOPICAL BID 06/14/18 11/03/19 History Brovana 15 mcg INHALATION BID 01/07/19 11/03/19 History albuterol sulfate 2.5 mg INHALATION Q4 PRN 01/07/19 11/03/19 History budesonide [Pulmicort] 0.5 mg INHALATION BID 01/07/19 11/03/19 History pregabalin [Lyrica] 25 mg PO TID 01/07/19 11/03/19 History Centrum Silver 1 tab PO QAM 03/29/19 11/03/19 History aspirin [Aspir-81] 81 mg PO DAILY 03/29/19 11/03/19 History hydrocortisone acetate [Anusol-HC] 25 mg MI DAILY PRN 03/29/19 11/03/19 History miconazole nitrate [Antifungal 1 applic TOPICAL DAILY PRN 03/29/19 11/03/19 History Cream (miconazole)] prednisone [Deltasone] 0 mg PO DIRECTED PRN 03/29/19 11/03/19 History azithromycin 250 mg PO DAILY PRN 11/03/19 11/03/19 History clopidogrel [Plavix] 75 mg PO DAILY 11/03/19 11/03/19 History cyanocobalamin (vitamin B-12) 1,000 mcg PO DAILY 11/03/19 11/03/19 History magnesium oxide 400 mg PO BID #60 tab 11/03/19 Rx pantoprazole 40 mg PO BID #60 tab 11/03/19 Rx Allergies Allergy/AdvReac Type Severity Reaction Status Date / Time benzocaine Allergy Severe SLOUGHING Verified 11/03/19 01:34 OF SKIN clindamycin Allergy Intermediate RASH Verified 11/03/19 01:34 cyanocobalamin (vitamin B12) Allergy Intermediate Rash Verified 11/03/19 01:34 clobetasol Allergy Mild ITCHING Verified 11/03/19 01:34 doxycycline Allergy Mild RASH Verified 11/03/19 01:34 Penicillins Allergy Mild HIVES Verified 11/03/19 01:34 phenethylamine Allergy Mild Itching Verified 11/03/19 01:34 povidone-iodine Allergy Mild Hives Verified 11/03/19 01:34 [From Betadine] soap [From Betadine] Allergy Mild Hives Verified 11/03/19 01:34 tea tree Allergy Mild ITCHING Verified 11/03/19 01:34 Past Med/Surg History Medical History (Updated 11/03/19 @ 10:05 by Jama Francois DO) HERNANDEZ (acute kidney injury) (Acute) Anxiety Aortic aneurysm Barretts esophagus Blood clotting disorder Chronic back pain Chronic kidney disease, stage 3 COPD (chronic obstructive pulmonary disease) inhalers and nebulizers daily Coronary artery disease (Chronic) Diverticular disease GERD (gastroesophageal reflux disease) Gout Elfrida filter in place (Chronic) Hearing deficit Hyperlipidemia Hypertension Myocardial Infarction 2016--follows with Dr. Casanova Neuropathy On home oxygen therapy 3-3.5L N/C at HS Osteoarthritis Prostate cancer sx Recurrent genital herpes simplex (Chronic Unknown) Sleep apnea oxygen at night Temporomandibular joint disorder Unstable angina Surgical History History of arthroscopic knee surgery History of bilateral cataract extraction History of cardiac cath x5--last 2016 History of colonoscopy History of esophagogastroduodenoscopy (EGD) History of heart artery stent multiple--last 2017 History of hernia repair epigastric History of left shoulder replacement History of lumbar surgery History of mandibular surgery tmj repair History of prostate biopsy malignant History of prostatectomy History of right inguinal hernia repair History of right shoulder replacement History of tooth extraction all teeth removed Status post correction of deviated nasal septum Status post total hip replacement, bilateral Social History Preferred Language: Argentine Communication Ability: Effective 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 and A total of 10 systems reviewed and were otherwise negative Physical Exam Vital Signs Vital Signs - 24 hr 11/03/19 01:16 11/03/19 02:01 11/03/19 03:31 Pulse Rate [Apical] 60 59 L 56 L Respiratory Rate 18 18 18 Blood Pressure [Left Arm] 150/97 H 163/86 H 157/87 H Blood Pressure Mean [Left Arm] 114 111 110 Pulse Oximetry 96 96 94 Oxygen Delivery Method Room Air Room Air Room Air 11/03/19 04:21 11/03/19 05:26 Pulse Rate [Apical] 56 L 54 L Respiratory Rate 18 18 Blood Pressure [Left Arm] 144/75 H 145/87 H Blood Pressure Mean [Left Arm] 98 106 Pulse Oximetry 93 95 Oxygen Delivery Method Room Air Room Air GENERAL: alert, well appearing, well nourished, no distress, non-toxic EYE EXAM: normal conjunctiva, PERRL and EOM's grossly intact OROPHARYNX: no exudate, no erythema, lips, buccal mucosa, and tongue normal and mucous membranes are moist NECK: supple, no nuchal rigidity, no adenopathy, non-tender LUNGS: Clear to auscultation. Normal chest wall mechanics, no w/r/r HEART: no murmurs, S1 normal and S2 normal ABDOMEN: abdomen soft, normo-active bowel sounds, no masses, no rebound or guarding. Minimal tenderness to epigastric area. BACK: Back is symmetrical on inspection and there is no deformity, no midline tenderness, no CVA tenderness. SKIN: no rashes and no bruising UPPER EXTREMITIES: Well healed surgical scar over right shoulder, decreased ROM at the right shoulder secondary to chronic pain. LOWER EXTREMITIES: No pitting edema. FROM, nml pulses b/l. NEURO EXAM: Normal sensorium, cranial nerves II-XII grossly intact, normal speech, no gross weakness of arms, no gross weakness of legs. RECTAL: No enlarged hemorrhoids, no anal fissure, dark brown stool in the rectal vault, heme negative on guaiac testing. Course Course 0053: The patient was evaluated in room A4. A complete history and physical exam was performed. 0337: Upon reevaluation, the patient is stable. I discussed the findings and the treatment plan with the patient. Patient states pain is almost completely resolved. He expresses agreement and understanding. I spoke with Dr. Mccarthy of the [facility]. The patient will be evaluated for further management. Consultations Consultation #1: I [facility] the [facility] will [facility] the patient for further management. Time: 03:37 Administered Medications Discontinued Medications Al Hydrox/Mg Hydrox/Simethicone (Maalox) 30 ml PO NOW STA Stop: 11/03/19 03:38 Last Admin: 11/03/19 04:03 Dose: 30 ml Documented by: [id number] Allopurinol (Zyloprim) 300 mg PO QAM [facility] Stop: 12/03/19 08:59 Last Admin: 11/03/19 08:29 Dose: 300 mg Documented by: [id number] Amlodipine Besylate (Norvasc) 2.5 mg PO NOW ONE Stop: 11/03/19 04:14 Last Admin: 11/03/19 04:22 Dose: 2.5 mg Documented by: [id number] Amlodipine Besylate (Norvasc) 2.5 mg PO QAM [facility] Stop: 12/03/19 08:59 Last Admin: 11/03/19 08:51 Dose: 2.5 mg Documented by: [id number] Budesonide (Pulmicort Respules) 0.5 mg INH BIDR MANDY Stop: 12/03/19 07:59 Last Admin: 11/03/19 08:54 Dose: 0.5 mg Documented by: [id number] Clopidogrel Bisulfate (Plavix) 75 mg PO DAILY MANDY Stop: 12/03/19 08:59 Last Admin: 11/03/19 08:28 Dose: 75 mg Documented by: [id number] Cyanocobalamin (Vitamin B-12) 1,000 mcg PO DAILY MANDY Stop: 12/03/19 08:59 Last Admin: 11/03/19 08:29 Dose: 1,000 mcg Documented by: [id number] Famotidine (Pepcid 20mg Iv Push) 20 mg IV ONE STA Stop: 11/03/19 01:04 Last Admin: 11/03/19 01:18 Dose: 20 mg Documented by: [id number] Famotidine (Pepcid) 20 mg PO QAM [facility] Stop: 12/03/19 08:59 Last Admin: 11/03/19 08:28 Dose: 20 mg Documented by: [id number] Fentanyl Citrate (Fentanyl Citrate) 50 mcg IV NOW STA Stop: 11/03/19 01:47 Last Admin: 11/03/19 01:58 Dose: 50 mcg Documented by: [id number] Formoterol Fumarate (Perforomist) 20 mcg INH BIDR MANDY Stop: 12/03/19 07:59 Last Admin: 11/03/19 08:54 Dose: 20 mcg Documented by: [id number] Heparin Sodium (Porcine) (Heparin Sodium (Porcine)) 5,000 units SQ Q8 [facility] Stop: 12/03/19 07:59 Last Admin: 11/03/19 14:01 Dose: Not Given Documented by: [id number] Admin: 11/03/19 08:30 Dose: 5,000 units Documented by: [id number] Cosigned by: [id number] Sodium Chloride (Nss 1000ml) 1,000 mls @ 125 mls/hr IV .Q8H [facility] Stop: 12/03/19 01:14 Last Infusion: 11/03/19 08:02 Dose: 0 mls/hr Documented by: [id number] Admin: 11/03/19 01:18 Dose: 125 mls/hr Documented by: [id number] Acetaminophen (Ofirmev) 1,000 mg in 100 mls @ 400 mls/hr IV NOW STA Stop: 11/03/19 03:51 Last Infusion: 11/03/19 04:19 Dose: 0 mls/hr Documented by: [id number] Admin: 11/03/19 04:04 Dose: 400 mls/hr Documented by: [id number] Potassium Chloride/Sodium Chloride (1/2 Nss + 20meq Kcl 1000ml) 20 meq in 1,000 mls @ 40 mls/hr IV .Q24H ONE Stop: 11/04/19 07:59 Last Admin: 11/03/19 08:26 Dose: 40 mls/hr Documented by: [id number] Famotidine 20 mg/ Syringe 5 mls @ 2.5 mls/min IV Q12H PRN PRN Reason: Heartburn Stop: 12/03/19 10:29 Last Admin: 11/03/19 11:41 Dose: 2.5 mls/min Documented by: [id number] Metoprolol Succinate (Toprol Xl) 25 mg PO QAM [facility] Stop: 12/03/19 08:59 Last Admin: 11/03/19 08:28 Dose: 25 mg Documented by: [id number] Nitroglycerin (Nitro-Bid 2%) 1 inch EXT NOW STA Stop: 11/03/19 01:05 Last Admin: 11/03/19 01:18 Dose: 1 inch Documented by: [id number] Oxybutynin Chloride (Ditropan) 5 mg PO BID [facility] Stop: 12/03/19 08:59 Last Admin: 11/03/19 08:28 Dose: 5 mg Documented by: [id number] Pantoprazole Sodium (Protonix) 40 mg PO BID [facility] Stop: 12/03/19 08:59 Last Admin: 11/03/19 08:28 Dose: 40 mg Documented by: [id number] Pneumococcal Polyvalent Vaccine (Pneumovax-23) 25 mcg IM .ONCE ONE Stop: 11/03/19 08:18 Last Admin: 11/03/19 08:58 Dose: Not Given Documented by: [id number] Pregabalin (Lyrica) 25 mg PO TID [facility] Stop: 12/03/19 08:59 Last Admin: 11/03/19 14:01 Dose: 25 mg Documented by: [id number] Admin: 11/03/19 08:31 Dose: 25 mg Documented by: [id number] Medical Decision Making Differential Diagnosis Differential diagnoses includes but is not limited to gastritis, peptic ulcer disease, GERD, gallbladder disease, pancreatitis, small bowel obstruction, acute coronary syndrome, pericarditis, ischemic bowel, irritable bowel disease, irritable bowel syndrome, appendicitis, diverticulitis, malignancy, hernia, urinary tract infection, torsion, perforation, trauma, infectious. Medical Records Attestation: I reviewed the patient's medical records. Home Medications Current Medication List: was personally reviewed by me Laboratory Data Attestation: I reviewed the patient's lab results. Result diagrams: 11/03/19 01:01 11/03/19 01:01 Lab Results 11/03/19 11/03/19 11/03/19 Range/Units 01:01 01:01 01:01 WBC 9.61 (4.8-10.8) K/uL RBC 3.48 L (4.7-6.1) M/uL Hgb 12.0 L (14.0-18.0) g/dL Hct 35.6 L (42-52) % MCV 102.3 H (80-100) fL MCH 34.5 H (25-34) pg MCHC 33.7 (32-36) g/dL RDW Std Deviation 52.7 H (36.4-46.3) fL RDW Coeff of Zoë 14.3 (11.5-14.5) % Plt Count 183 (130-400) K/uL MPV 10.1 (7.4-10.4) fL Immature Gran % (Auto) 1.0 % Neut % (Auto) 73.2 % Lymph % (Auto) 15.7 % [place] % (Auto) 9.2 % Eos % (Auto) 0.9 % Baso % (Auto) 0.0 % Immature Gran # (Auto) 0.10 H (0.00-0.02) K/uL Neut # (Auto) 7.03 H (1.4-6.5) K/uL Lymph # (Auto) 1.51 (1.2-3.4) K/uL [place] # (Auto) 0.88 H (0.11-0.59) K/uL Eos # (Auto) 0.09 (0-0.5) K/uL Baso # (Auto) 0.00 (0-0.2) K/uL PT (9.0-12.0) Seconds INR (0.9-1.1) D-Dimer (0-500) ug/L FEU Sodium 142 (136-145) mmol/L Potassium 3.8 (3.5-5.1) mmol/L Chloride 111 H (98-107) mmol/L Carbon Dioxide 23 (21-32) mmol/L Anion Gap 8.0 (3-11) BUN 32 H (7-18) mg/dl Creatinine 2.24 H (0.6-1.4) mg/dl Est Cr Clr Drug Dosing 32.5 ml/min Est GFR ( Amer) 32.3 Est GFR (Non-Af Amer) 27.8 BUN/Creatinine Ratio 14.5 (10-20) Glucose 120 H (70-99) mg/dl Calcium 8.5 (8.5-10.1) mg/dl Magnesium (1.8-2.4) mg/dl Total Bilirubin 0.4 (0.2-1) mg/dl AST 32 (15-37) U/L ALT 28 (12-78) U/L Alkaline Phosphatase 133 H (45-117) U/L Troponin I 0.035 (0-0.045) ng/ml NT-Pro-B Natriuret Pep 1443 H (0-900) pg/ml Total Protein 6.7 (6.4-8.2) gm/dl Albumin 3.3 L (3.4-5.0) gm/dl Globulin 3.4 (2.5-4.0) gm/dl Albumin/Globulin Ratio 1.0 (0.9-2) Lipase 136 (73-393) U/L TSH 15.100 H (0.300-4.500) uIu/ml Specimen Hemolysis Hepatitis C Ab Screen (Neg) 11/03/19 11/03/19 11/03/19 Range/Units 01:01 01:33 04:31 WBC (4.8-10.8) K/uL RBC (4.7-6.1) M/uL Hgb (14.0-18.0) g/dL Hct (42-52) % MCV (80-100) fL MCH (25-34) pg MCHC (32-36) g/dL RDW Std Deviation (36.4-46.3) fL RDW Coeff of Zoë (11.5-14.5) % Plt Count (130-400) K/uL MPV (7.4-10.4) fL Immature Gran % (Auto) % Neut % (Auto) % Lymph % (Auto) % [place] % (Auto) % Eos % (Auto) % Baso % (Auto) % Immature Gran # (Auto) (0.00-0.02) K/uL Neut # (Auto) (1.4-6.5) K/uL Lymph # (Auto) (1.2-3.4) K/uL [place] # (Auto) (0.11-0.59) K/uL Eos # (Auto) (0-0.5) K/uL Baso # (Auto) (0-0.2) K/uL PT 11.4 (9.0-12.0) Seconds INR 1.1 (0.9-1.1) D-Dimer 1330 H* (0-500) ug/L FEU Sodium (136-145) mmol/L Potassium (3.5-5.1) mmol/L Chloride (98-107) mmol/L Carbon Dioxide (21-32) mmol/L Anion Gap (3-11) BUN (7-18) mg/dl Creatinine (0.6-1.4) mg/dl Est Cr Clr Drug Dosing ml/min Est GFR ( Amer) Est GFR (Non-Af Amer) BUN/Creatinine Ratio (10-20) Glucose (70-99) mg/dl Calcium (8.5-10.1) mg/dl Magnesium 1.5 L (1.8-2.4) mg/dl Total Bilirubin (0.2-1) mg/dl AST (15-37) U/L ALT (12-78) U/L Alkaline Phosphatase (45-117) U/L Troponin I 0.031 (0-0.045) ng/ml NT-Pro-B Natriuret Pep (0-900) pg/ml Total Protein (6.4-8.2) gm/dl Albumin (3.4-5.0) gm/dl Globulin (2.5-4.0) gm/dl Albumin/Globulin Ratio (0.9-2) Lipase (73-393) U/L TSH (0.300-4.500) uIu/ml Specimen Hemolysis Hepatitis C Ab Screen Neg (Neg) Imaging Data Radiologist's Impression: Radiology results as stated below per my review and the radiologist's interpretation: SINGLE VIEW CHEST FINDINGS: An AP, portable, upright chest radiograph is compared to study dated 04/13/2019 and correlated with chest CT dated 04/12/2018. The examination is degraded by portable technique and patient rotation. The heart is enlarged and there is atherosclerotic calcification of the thoracic aorta. The pulmonary vasculature is noncongested. Emphysema and chronic interstitial thickening are similar to previous. There is bibasilar scarring/atelectasis. No airspace consolidation or large pleural effusion is identified. No pneumothorax is seen. The skeletal structures are osteopenic. The bony thorax is grossly intact. Bilateral shoulder arthroplasties are in place. IMPRESSION: Cardiomegaly and emphysema with no acute cardiopulmonary abnormality. Electronically signed by: Braden Rucker M.D. 11/03/2019 1:[address] ABDOMEN & PELVIS Without Contrast: Direct comparison is made to prior study from April 12, 2018. Liver, spleen, pancreas, and gallbladder appear normal. There is a moderately sized hiatal hernia. Small bowel, colon, and appendix appear normal. There is a 3mm nonobstructing right calyceal renal stone. There is no hydronephrosis or renal mass. Adrenals and ureters appear normal. Bladder is now well visualized due to beam hardening artifact. There is an inferior vena cava filter. A 3.3cm abdominal aortic aneurysm is stable relative to the prior study. There is a midline ventral abdominal wall hernia pelvic. This contains nonobstructed segment of small bowel. There are bilateral hip replacements. There is a benign cystic appearing structure in the left iliac stable prior study. There is a calcified granuloma in the left lower lobe. This is stable from the prior study. Impression: Stable aortic aneurysm. Stable hiatal hernia. Inferior vena cava filter in place. Pelvic midline ventral hernia containing instructed small bowel is stable from prior study. Radiologist: Rodney العراقي MD. ECG Data Attestation: I personally reviewed and interpreted this ECG as follows: Indication: + abdominal pain Rate (beats per minute): 59 Rhythm: + sinus bradycardia ECG [place]: + Normal ECG ST segments: no ST depression and no ST elevation ECG Findings: no PACs and no PVCs Additional Comments: Normal intervals. Blood Pressure Blood Pressure Findings: Elevated blood pressure Blood Pressure Disposition: further management by hospitalist [facility] Narrative Patient with significant past medical history including complicated cardiac history presenting with concern due to similarly evolving symptoms. Patient's initial EKG unremarkable, and first troponin negative. Patient did had an elevated d-dimer, however was also found to have chronic kidney disease. Patient's pain was improved here with medications and he had no worsening shortness of breath. Chest x-ray unremarkable. CT of the abdomen and pelvis wi thout contrast was also reassuring. Patient's vital signs were stable throughout, no hypoxia, patient afebrile. While patient's dimer is elevated, I do not suspect PE, as I feel is more likely secondary to his chronic kidney disease. Patient does take aspirin and Plavix daily. Discussed all results with the patient, possible differential diagnosis, and he was in agreement with the plan. Due to significant past medical history and elevated cardiac risk, case discussed with hospitalist for additional evaluation and management. Impression & Plan Epigastric pain, Chronic kidney disease, Hypertension Discharge Plan Visit Data *Final* Discharge Date/Time: 11/03/19 06:59 Chief Complaint: Chest Pain Stated Complaint: CHEST PAIN ED Provider: Manisha Nick Discharge Problem: Epigastric pain, Chronic kidney disease, Hypertension Patient Disposition: Admitted As Inpatient Condition: Good Discharge Instructions Interventions: ED Discharge Assessment Last Done: 11/03/19 06:59 Discharge Problem: Chronic kidney disease Qualifiers: Chronic kidney disease stage: unspecified stage Qualified Code(s): N18.9 - Chronic kidney disease, unspecified Hypertension Qualifiers: Hypertension type: unspecified Qualified Code(s): I10 - Essential (primary) hypertension The scribe's documentation has been prepared under my direction and personally reviewed by me in its entirety. I confirm that the note above accurately reflect s all work, treatment, procedures, and medical decision making performed by me.
[2019-11-04 06:49] LABS: Estimated Average Glucose 131 mg/dl; Hemoglobin A1C 6.2 % (4.5-5.6)
== END 2019-11-03 14:42 | disposition home or self-care (01) ==
LOC: 1E 00:36 → ED 00:36 → 1E 06:59

== ENCOUNTER 2020-01-28 12:31 | Inpatient (IN) ==
[2020-01-28] MEDS ORDERED: ASPIRIN CHEW 324 MG PO STA (13:12)
[2020-01-28] MEDS ORDERED: NITROGLYCERIN 2% OINTMENT 30GM TUBE EXT STA (13:12)
--- NOTE | 2020-01-28 13:19 | Emergency Department Note ---
Impression & Plan Precordial chest pain, Hypomagnesemia, History of coronary artery disease, Hypokalemia ED Provider Note NAME: JUAN TYSON AGE: 74 SEX: M : 1945 ARRIVES VIA: Walk-In INFORMANT: [Patient] ED PROVIDER(S): [Braden Whatley MD] CHIEF COMPLAINT: Chest pain HISTORY OF PRESENT ILLNESS: The patient is a 74-year-old male who presents to the ER with intermittent, 6/10, central chest pain without radiation. The pain is described as a tightness. Patient did notice some sweating, some dizziness and some shortness of breath, no nausea. The patient states the chest pain came on as he was getting ready for his shower. He took a nitroglycerin which relieved the pain. The pain then returned, he took a second nitro with chest pain relief. He also took some oral Plavix. The patient has not had cough or congestion. He has not been febrile. No known coronavirus exposures. He has not suffered trauma or any injury of the chest wall. The patient does have known coronary disease. He has 3 stents. He last used nitroglycerin at 1.5 weeks ago, this relieved his pain at that time as well. He states that he was told that if he needed to use 2 nitroglycerin, he should report to the ED. The patient did speak to the [facility] today, he was referred to the ED. He presents by private vehicle. REVIEW OF SYSTEMS: See HPI for pertinent positives and negatives. A total of ten systems were reviewed and were otherwise negative. PMHx/PSHx: See Below SOCIAL HISTORY: See Below. PHYSICAL EXAM: GENERAL: Patient is in no acute distress. HEENT: No acute trauma, normocephalic atraumatic, mucous membranes moist, no nasal congestion, no scleral icterus. NECK: No stridor, no adenopathy, no meningismus, trachea is midline. LUNGS: Clear to auscultation bilaterally but somewhat diminished bilaterally, no wheeze, no rhonchi, breath sounds equal. HEART: Without murmurs gallops or rubs, regular rate and rhythm. Chest: He does have some tenderness to the mid sternal chest wall. ABDOMEN: Soft, nontender, bowel sounds positive, no hernias, no peritonitis. EXTREMITIES: No cyanosis or edema, full range of motion of all the joints without pain or difficulty, no signs for acute trauma. NEUROLOGIC: Oriented x 3, no acute motor or sensory deficits, no focal weakness. SKIN: No rash, no jaundice, no diaphoresis. DIFFERENTIAL DIAGNOSIS: Cardiac ischemia, aortic dissection, pulmonary embolism, pneumothorax, pneumonia, pericarditis, myocarditis, esophageal rupture, GERD, cholecystitis, pancreatitis, musculoskeletal, as well as other pathologies. EMERGENCY DEPARTMENT COURSE/PROCEDURES: ECG: Indication was chest pain. EKG shows a sinus rhythm with a first-degree AV block. The rate is 66. There are some flattened T waves laterally. No ST elevation, no PVCs. Compared to an ECG from 02 December 2019, there is no significant change. Continuous Cardiac Monitoring: An order was placed for continuous cardiac monitoring. The monitor shows a rate of 60 with sinus rhythm and a first-degree AV block. MEDICAL DECISION MAKING: There is no leukocytosis. The patient does have a mild anemia. The anemia is baseline looking back at previous testing. There is a normal platelet count. No coagulopathy. There is renal insufficiency but this is baseline looking back at previous testing, potassium and magnesium were both low. No concerning liver enzyme elevation. No evidence for pancreatitis. EKG shows a sinus rhythm with a first-degree AV block. There was no acute ischemia. The EKG looks similar to previous EKGs. Cardiac enzyme testing x1 is not consistent with acute cardiac injury. Chest film shows some cardiomegaly, there was no pneumonia, mediastinal widening or pneumothorax. The patient presents with chest pain which was relieved with nitroglycerin. He has a known coronary history. He received nitroglycerin paste, oral aspirin. Was given oral magnesium, oral potassium and IV magnesium. The patient requires a hospital stay. Further cardiac work-up is warranted. I did discuss the case with cardiology, they did recommend further cardiac work- up. The patient is aware of his findings, I did speak with case management. The on- call hospitalist has been consulted. Past Med/Surg History Medical History Anxiety Aortic aneurysm stable 3cm Barretts esophagus Blood clotting disorder Chronic anemia Chronic back pain Chronic kidney disease, stage 3 COPD (chronic obstructive pulmonary disease) inhalers and nebulizers daily Coronary artery disease (Chronic) Diverticular disease GERD (gastroesophageal reflux disease) Gout Gracie filter in place (Chronic) Hearing deficit Hyperlipidemia Hypertension Myocardial Infarction 2017--follows with Dr. Casanova Neuropathy Nocturnal hypoxemia On home oxygen therapy 2.5L N/C at HS Osteoarthritis Prostate cancer sx Recurrent genital herpes simplex (Chronic Unknown) Sleep apnea oxygen at night Temporomandibular joint disorder Surgical History History of arthroscopic knee surgery History of bilateral cataract extraction History of cardiac cath x5--last 2018 History of colonoscopy History of esophagogastroduodenoscopy (EGD) History of heart artery stent multiple--last 2018 2/2 to restenosis History of hernia repair epigastric History of left shoulder replacement History of lumbar surgery History of mandibular surgery tmj repair History of prostate biopsy malignant History of prostatectomy History of right inguinal hernia repair History of right shoulder replacement History of tooth extraction all teeth removed Status post correction of deviated nasal septum Status post total hip replacement, bilateral Family History Other Family history not known due to adoption Social History Preferred Language: Montenegrin Communication Ability: Effective 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 Cafeteria Required: No Beliefs That Will Affect Care: None Current Living Situation: Spouse Current Living Situation Comment: Lives with and son current occupational status: retired Other Information That Helps Us Care for You: No Feels Safe at Home: Yes Safety Concerns: Feels Safe At This Time Smoking Status: Former smoker Tobacco Type: cigars ; Years Smoked: 42 ; Second Hand Exposure: No ; Hx Alcohol Use: No Allergies Allergies Allergy/AdvReac Type Severity Reaction Status Date / Time benzocaine Allergy Severe SLOUGHING Verified 01/28/20 13:35 OF SKIN clindamycin Allergy Intermediate RASH Verified 01/28/20 13:35 cyanocobalamin (vitamin B12) Allergy Intermediate Rash Verified 01/28/20 13:35 clobetasol Allergy Mild ITCHING Verified 01/28/20 13:35 doxycycline Allergy Mild RASH Verified 01/28/20 13:35 Penicillins Allergy Mild HIVES Verified 01/28/20 13:35 phenethylamine Allergy Mild Itching Verified 01/28/20 13:35 povidone-iodine Allergy Mild Hives Verified 01/28/20 13:35 [From Betadine] soap [From Betadine] Allergy Mild Hives Verified 01/28/20 13:35 tea tree Allergy Mild ITCHING Verified 01/28/20 13:35 Home Meds Home Medications Medication Instructions Recorded Confirmed Combivent Respimat 1 puff INHALATION QID PRN 06/14/18 01/28/20 allopurinol 300 mg PO QAM 06/14/18 01/28/20 atorvastatin 80 mg PO QPM 06/14/18 01/28/20 cholecalciferol (vitamin D3) 2,000 unit PO QAM 06/14/18 01/28/20 [Vitamin D3] docusate sodium 100 mg PO BID PRN 06/14/18 01/28/20 famotidine 40 mg PO QAM 06/14/18 01/28/20 ferrous sulfate 325 mg PO QAM 06/14/18 01/28/20 lorazepam 0.5 mg PO TID PRN 06/14/18 01/28/20 metoprolol succinate 25 mg PO QAM 06/14/18 01/28/20 nitroglycerin 1 tab SUBLINGUAL UD PRN 06/14/18 01/28/20 oxybutynin chloride 5 mg PO BID 06/14/18 01/28/20 triamcinolone acetonide 1 applic TOPICAL BID PRN 06/14/18 01/28/20 Brovana 15 mcg INHALATION BID 01/07/19 01/28/20 albuterol sulfate 2.5 mg INHALATION Q4 PRN 01/07/19 01/28/20 budesonide [Pulmicort] 0.5 mg INHALATION BID 01/07/19 01/28/20 Centrum Silver 1 tab PO QAM 03/29/19 01/28/20 aspirin [Aspir-81] 81 mg PO DAILY 03/29/19 01/28/20 hydrocortisone acetate [Anusol-HC] 25 mg DC DAILY PRN 03/29/19 01/28/20 miconazole nitrate [Antifungal 1 applic TOPICAL DAILY PRN 03/29/19 01/28/20 Cream (miconazole)] clopidogrel [Plavix] 75 mg PO DAILY 11/03/19 01/28/20 cyanocobalamin (vitamin B-12) 1,000 mcg PO DAILY 11/03/19 01/28/20 gabapentin 300 mg PO HS 01/28/20 01/28/20 isosorbide mononitrate 30 mg PO QAM 01/28/20 01/28/20 Previous Rx's Medication Instructions Recorded magnesium oxide 400 mg PO BID #60 tab 11/03/19 pantoprazole 40 mg PO BID #60 tab 11/03/19 albuterol sulfate 2 puffs INH Q6H PRN #18 gm 12/02/19 Results & Data (ED) Vital Signs Vital Signs - 24 hr 01/28/20 12:33 01/28/20 12:55 01/28/20 13:37 Temperature 36.8 C Temperature Source Oral Pulse Rate 70 Pulse Rate [Left Finger] 62 Respiratory Rate 20 18 Respiratory Effort / Characteristics Non-Labored Non-Labored Respiratory Depth Normal Normal Respiratory Pattern Regular Blood Pressure 173/100 H Blood Pressure [Left Arm] 160/99 H Blood Pressure Mean 124 Blood Pressure Mean [Left Arm] 119 Pulse Oximetry 96 96 98 Oxygen Delivery Method Room Air Room Air Room Air Sepsis Recent Fever Within 48 Hours No Sepsis Action Taken by Nursing No Action Required Home Medications Current Medication List: was personally reviewed by me Laboratory Data Attestation: I reviewed the patient's lab results. Result diagrams: 01/28/20 12:53 01/28/20 12:53 Lab Results 01/28/20 01/28/20 01/28/20 Range/Units 12:53 12:53 12:53 WBC 6.01 (4.8-10.8) K/uL RBC 3.34 L (4.7-6.1) M/uL Hgb 11.4 L (14.0-18.0) g/dL Hct 34.1 L (42-52) % MCV 102.1 H (80-100) fL MCH 34.1 H (25-34) pg MCHC 33.4 (32-36) g/dL RDW Std Deviation 52.7 H (36.4-46.3) fL RDW Coeff of Zoë 14.1 (11.5-14.5) % Plt Count 166 (130-400) K/uL MPV 10.6 H (7.4-10.4) fL Immature Gran % (Auto) 0.2 % Neut % (Auto) 66.9 % Lymph % (Auto) 17.3 % Osborne % (Auto) 11.8 % Eos % (Auto) 3.5 % Baso % (Auto) 0.3 % Immature Gran # (Auto) 0.01 (0.00-0.02) K/uL Neut # (Auto) 4.02 (1.4-6.5) K/uL Lymph # (Auto) 1.04 L (1.2-3.4) K/uL Osborne # (Auto) 0.71 H (0.11-0.59) K/uL Eos # (Auto) 0.21 (0-0.5) K/uL Baso # (Auto) 0.02 (0-0.2) K/uL PT 11.7 (9.0-12.0) Seconds INR 1.1 (0.9-1.1) APTT 28.1 (21.0-31.0) Seconds PTT Ratio 1.0 Sodium 142 (136-145) mmol/L Potassium 3.3 L (3.5-5.1) mmol/L Chloride 110 H (98-107) mmol/L Carbon Dioxide 23 (21-32) mmol/L Anion Gap 9.0 (3-11) BUN 16 (7-18) mg/dl Creatinine 2.12 H (0.6-1.4) mg/dl Est Cr Clr Drug Dosing 33.6 ml/min Est GFR ( Amer) 34.5 Est GFR (Non-Af Amer) 29.8 BUN/Creatinine Ratio 7.4 L (10-20) Glucose 130 H (70-99) mg/dl Calcium 8.8 (8.5-10.1) mg/dl Magnesium 1.3 L (1.8-2.4) mg/dl Total Bilirubin 0.3 (0.2-1) mg/dl AST 17 (15-37) U/L ALT 21 (12-78) U/L Alkaline Phosphatase 137 H (45-117) U/L Troponin I 0.015 (0-0.045) ng/ml Total Protein 7.1 (6.4-8.2) gm/dl Albumin 3.6 (3.4-5.0) gm/dl Globulin 3.5 (2.5-4.0) gm/dl Albumin/Globulin Ratio 1.0 (0.9-2) Lipase 133 (73-393) U/L Administered Medications Budesonide (Pulmicort Respules) 0.5 mg INH BIDR [facility] Stop: 02/27/20 18:59 Last Admin: 01/28/20 19:46 Dose: 0.5 mg Documented by: [id number] Formoterol Fumarate (Perforomist) 20 mcg INH BIDR MANDY Stop: 02/27/20 18:59 Last Admin: 01/28/20 19:46 Dose: 20 mcg Documented by: [id number] Discontinued Medications Aspirin (Aspirin) 324 mg PO NOW STA Stop: 01/28/20 13:13 Last Admin: 01/28/20 13:42 Dose: 324 mg Documented by: [id number] Hydrox/Mg Hydrox/Simethicone 18 ml/ Lidocaine HCl 6 ml/ BARCODE IDENTIFIER 1 ea 0 ml PO ONE ONE Stop: 01/28/20 16:46 Last Admin: 01/28/20 17:45 Dose: 6 ml Documented by: [id number] Magnesium Sulfate/Dextrose (Magnesium Sulfate / D5w) 1 gm in 100 mls @ 100 mls/hr IV ONE ONE Stop: 01/28/20 14:35 Last Infusion: 01/28/20 16:47 Dose: 0 mls/hr Documented by: [id number] Admin: 01/28/20 13:58 Dose: 100 mls/hr Documented by: [id number] Magnesium Oxide (Mag-Ox) 400 mg PO NOW STA Stop: 01/28/20 13:37 Last Admin: 01/28/20 13:57 Dose: 400 mg Documented by: [id number] Nitroglycerin (Nitro-Bid 2%) 1 inch EXT NOW STA Stop: 01/28/20 13:13 Last Admin: 01/28/20 13:42 Dose: 1 inch Documented by: [id number] Potassium Chloride (Klor-Con M20) 40 meq PO NOW STA Stop: 01/28/20 13:37 Last Admin: 01/28/20 13:57 Dose: 40 meq Documented by: [id number] Imaging Data Radiologist's Impression: XR chest 1V portable HISTORY: 74 years-old Male Chest Pain acute atypical chest pain COMPARISON: Chest radiograph 12/02/2019 TECHNIQUE: Portable AP view of the chest FINDINGS: Cardiac silhouette is enlarged, unchanged. Calcified plaque of the thoracic aortic arch. No pneumothorax, pleural effusion or overt pulmonary edema. Minimal linear bibasilar atelectasis. Degenerative changes are seen within the spine. Bilateral shoulder arthroplasties. Descending thoracic aortic tortuosity with small hiatal hernia. IMPRESSION: Cardiomegaly without acute process. Discharge Plan Visit Data *Final* Discharge Date/Time: 01/28/20 15:49 Chief Complaint: Chest Pain Stated Complaint: CHEST PAIN ED Provider: Braden Whatley Discharge Problem: Precordial chest pain, Hypomagnesemia, History of coronary artery disease, Hypokalemia Patient Disposition: Admitted As Inpatient Condition: Good Discharge Instructions Interventions: ED Discharge Assessment Last Done: 01/28/20 15:49
--- NOTE | 2020-01-28 13:25 | XRay Report ---
XR chest 1V portable HISTORY: 74 years-old Male Chest Pain acute atypical chest pain COMPARISON: Chest radiograph 12/02/2019 TECHNIQUE: Portable AP view of the chest FINDINGS: Cardiac silhouette is enlarged, unchanged. Calcified plaque of the thoracic aortic arch. No pneumotho rax, pleural effusion or overt pulmonary edema. Minimal linear bibasilar atelectasis. Degenerative ch anges are seen within the spine. Bilateral shoulder arthroplasties. Descending thoracic aortic tortuo sity with small hiatal hernia. IMPRESSION: Cardiomegaly without acute process. ACT 112: Negative or not required by law. The above report was generated using voice recognition software. It may contain grammatical, syntax o r spelling errors. Electronically signed by: Trenton Orourke M.D. 01/28/2020 1:23 PM
[2020-01-28 13:30] LABS: Albumin Level 3.6 gm/dl (3.4-5.0); BUN Creatinine Ratio 7.4 (10-20); Calcium 8.8 mg/dl (8.5-10.1); Creatinine Clr Calc Pharmacy 33.6 ml/min; Est GFR (African American) 34.5; Est GFR (Non-African American) 29.8; Magnesium 1.3 mg/dl (1.8-2.4); Potassium 3.3 mmol/L (3.5-5.1)
[2020-01-28 13:34] LABS: INR 1.1 (0.9-1.1); Partial Thromboplastin Time 28.1 Seconds (21.0-31.0); Prothrombin Time 11.7 Seconds (9.0-12.0)
[2020-01-28 13:35] LABS: Bilirubin,Total 0.3 mg/dl (0.2-1); Globulin 3.5 gm/dl (2.5-4.0); Total Protein 7.1 gm/dl (6.4-8.2); Troponin I 0.015 ng/ml (0-0.045)
[2020-01-28] MEDS ORDERED: MAGNESIUM OXIDE 400 MG TAB PO STA (13:36)
[2020-01-28] MEDS ORDERED: POTASSIUM CHLORIDE 20 MEQ TABCR PO STA (13:36)
[2020-01-28] MEDS ORDERED: MAGNESIUM SULFATE / D5W 1 GM/100 ML BAG IV ONE (13:36)
--- NOTE | 2020-01-28 13:50 | Electrocardiogram Report ---
Test Reason : Blood Pressure : / mmHG Vent. Rate : 066 BPM Atrial Rate : 066 BPM P-R Int : 232 ms QRS Dur : 086 ms QT Int : 406 ms P-R-T Axes : -22 000 -26 degrees QTc Int : 425 ms Sinus rhythm with 1st degree A-V block Nonspecific T wave abnormality Abnormal ECG When compared with ECG of 02-DEC-2019 10:52, MA interval has increased T wave inversion now evident in Lateral leads Confirmed by Boaz Dunn ([id number]) on 01/28/2020 1:50:20 PM Referred By: REFERRED SELF Confirmed By:Boaz Dunn
[2020-01-28 13:51] LABS: Basophils # (auto) 0.02 K/uL (0-0.2); Basophils % (auto) 0.3 %; Eosinophils # (auto) 0.21 K/uL (0-0.5); Eosinophils % (auto) 3.5 %; Hematocrit (blood only) 34.1 % (42-52); Hemoglobin 11.4 g/dL (14.0-18.0); Immature Granulocytes # (auto) 0.01 K/uL (0.00-0.02); Immature Granulocytes % (auto) 0.2 %; Lymphocytes # (auto) 1.04 K/uL (1.2-3.4); Lymphocytes % (auto) 17.3 %; Mean Corpuscular Hemoglobin 34.1 pg (25-34); Mean Corpuscular Hgb Conc 33.4 g/dL (32-36); Mean Corpuscular Volume 102.1 fL (80-100); Mean Platelet Volume 10.6 fL (7.4-10.4); Monocytes # (auto) 0.71 K/uL (0.11-0.59); Monocytes % (auto) 11.8 %; Neutrophils # (auto) 4.02 K/uL (1.4-6.5); Neutrophils % (auto) 66.9 %; Platelet Count 166 K/uL (130-400); RDW Coefficient of Variation 14.1 % (11.5-14.5); RDW Standard Deviation 52.7 fL (36.4-46.3); Red Blood Count 3.34 M/uL (4.7-6.1); White Blood Count 6.01 K/uL (4.8-10.8)
--- NOTE | 2020-01-28 15:29 | Cardiology Consultation ---
Date of Consultation January 28, 2020 Assessment & Plan (1) Precordial chest pain: (2) History of coronary artery disease: (3) Hypertension: (4) Hypokalemia: (5) Hypomagnesemia: Patient presents with atypical lower substernal and subxiphoid discomfort mildly reproducible with palpation. Repeat cardiac enzymes x3 sets. Continue topical nitrates. Resting 2D transthoracic echocardiogram ordered with results pending at this time. Repeat ECG in a.m. and with any recurrent chest discomfort. I would not titrate metoprolol further due to borderline resting bradycardia. Continue other cardiovascular medications occluding aspirin, Plavix, isosorbide monohydrate, and atorvastatin. Blood pressure currently elevated. We will continue to monitor during hospitalization. Consider addition of amlodipine or titration of isosorbide monohydrate if BP remains uncontrolled. Further recomm endations pending result of testing. Discussed with internal medicine. Consider empiric treatment with 'GI cocktail' due to atypical symptoms. History of Present Illness Reason for Consultation: Chest pain Requesting Physician: Dr. Whatley Attending Physician: Dr. Regan History of Present Illness 74-year-old gentleman presented emergency department with chest discomfort. Patient describes 2 episodes of chest pain occurring this morning. The first was relieved with sublingual nitroglycerin and was not unusual. Typically uses nitroglycerin once every 2 weeks. The second episode of chest pain occurred several minutes later with associated tightness and mild dyspnea. He took sublingual nitroglycerin with partial relief. Came to the emergency department where again he was treated with sublingual nitroglycerin and topical nitrates. Pain markedly reduced. Twelve-lead ECG without ischemic changes. No change when compared to prior studies. Bedside echocardiogram pending at this time. Initial troponins negative. Patient denies exertional chest discomfort or unusual shortness of breath on a day-to-day basis. Complains of right shoulder discomfort related to fracture. No palpitations, lightheadedness, dizziness, syncope, or near syncope. Denies orthopnea, PND, lower extremity edema, or claudication. Currently resting comfortably. No dysrhythmias on telemetry. Denies any recent noncompliance with cardiac medications. Recently hospitalized November 2019 with atypical chest discomfort. Patient ruled out for acute coronary syndrome and discharged home. He followed up with his primary outpatient [employer] [facility] 11/21/2019. Continued observation and medical management recommended during that visit. Allergies Allergy/AdvReac Type Severity Reaction Status Date / Time benzocaine Allergy Severe SLOUGHING Verified 01/28/20 13:35 OF SKIN clindamycin Allergy Intermediate RASH Verified 01/28/20 13:35 cyanocobalamin (vitamin B12) Allergy Intermediate Rash Verified 01/28/20 13:35 clobetasol Allergy Mild ITCHING Verified 01/28/20 13:35 doxycycline Allergy Mild RASH Verified 01/28/20 13:35 Penicillins Allergy Mild HIVES Verified 01/28/20 13:35 phenethylamine Allergy Mild Itching Verified 01/28/20 13:35 povidone-iodine Allergy Mild Hives Verified 01/28/20 13:35 [From Betadine] soap [From Betadine] Allergy Mild Hives Verified 01/28/20 13:35 tea tree Allergy Mild ITCHING Verified 01/28/20 13:35 Home Medications Home Medications Medication Instructions Recorded Confirmed Type Combivent Respimat 1 puff INHALATION QID PRN 06/14/18 01/28/20 History allopurinol 300 mg PO QAM 06/14/18 01/28/20 History atorvastatin 80 mg PO QPM 06/14/18 01/28/20 History cholecalciferol (vitamin D3) 2,000 unit PO QAM 06/14/18 01/28/20 History [Vitamin D3] docusate sodium 100 mg PO BID PRN 06/14/18 01/28/20 History famotidine 40 mg PO QAM 06/14/18 01/28/20 History ferrous sulfate 325 mg PO QAM 06/14/18 01/28/20 History lorazepam 0.5 mg PO TID PRN 06/14/18 01/28/20 History metoprolol succinate 25 mg PO QAM 06/14/18 01/28/20 History nitroglycerin 1 tab SUBLINGUAL UD PRN 06/14/18 01/28/20 History oxybutynin chloride 5 mg PO BID 06/14/18 01/28/20 History triamcinolone acetonide 1 applic TOPICAL BID PRN 06/14/18 01/28/20 History Brovana 15 mcg INHALATION BID 01/07/19 01/28/20 History albuterol sulfate 2.5 mg INHALATION Q4 PRN 01/07/19 01/28/20 History budesonide [Pulmicort] 0.5 mg INHALATION BID 01/07/19 01/28/20 History Centrum Silver 1 tab PO QAM 03/29/19 01/28/20 History aspirin [Aspir-81] 81 mg PO DAILY 03/29/19 01/28/20 History hydrocortisone acetate [Anusol-HC] 25 mg CA DAILY PRN 03/29/19 01/28/20 History miconazole nitrate [Antifungal 1 applic TOPICAL DAILY PRN 03/29/19 01/28/20 History Cream (miconazole)] clopidogrel [Plavix] 75 mg PO DAILY 11/03/19 01/28/20 History cyanocobalamin (vitamin B-12) 1,000 mcg PO DAILY 11/03/19 01/28/20 History magnesium oxide 400 mg PO BID #60 tab 11/03/19 01/28/20 Rx pantoprazole 40 mg PO BID #60 tab 11/03/19 01/28/20 Rx albuterol sulfate 2 puffs INH Q6H PRN #18 gm 12/02/19 01/28/20 Rx gabapentin 300 mg PO HS 01/28/20 01/28/20 History isosorbide mononitrate 30 mg PO QAM 01/28/20 01/28/20 History Patient History Medical History Anxiety Aortic aneurysm stable 3cm Barretts esophagus Blood clotting disorder Chronic anemia Chronic back pain Chronic kidney disease, stage 3 COPD (chronic obstructive pulmonary disease) inhalers and nebulizers daily Coronary artery disease (Chronic) Diverticular disease GERD (gastroesophageal reflux disease) Gout Gracie filter in place (Chronic) Hearing deficit Hyperlipidemia Hypertension Myocardial Infarction 2016--follows with Dr. Casanova Neuropathy Nocturnal hypoxemia On home oxygen therapy 2.5L N/C at HS Osteoarthritis Prostate cancer sx Recurrent genital herpes simplex (Chronic Unknown) Sleep apnea oxygen at night Temporomandibular joint disorder Surgical History History of arthroscopic knee surgery History of bilateral cataract extraction History of cardiac cath x5--last 2018 History of colonoscopy History of esophagogastroduodenoscopy (EGD) History of heart artery stent multiple--last 2018 2/2 to restenosis History of hernia repair epigastric History of left shoulder replacement History of lumbar surgery History of mandibular surgery tmj repair History of prostate biopsy malignant History of prostatectomy History of right inguinal hernia repair History of right shoulder replacement History of tooth extraction all teeth removed Status post correction of deviated nasal septum Status post total hip replacement, bilateral Family History Other Family history not known due to adoption Social History Preferred Language: [place] Communication Ability: Effective Insole Tacker Required: No Beliefs That Will Affect Care: None Current Living Situation: Spouse Current Living Situation Comment: Lives with and son current occupational status: retired Other Information That Helps Us Care for You: No Feels Safe at Home: Yes Safety Concerns: Feels Safe At This Time Smoking Status: Former smoker Tobacco Type: cigars ; Years Smoked: 42 ; Second Hand Exposure: No ; Hx Alcohol Use: No Review of Systems Review of Systems: All systems reviewed & are unremarkable except as noted in HPI & below Physical Exam Constitutional: well developed, well nourished, + ill appearing and + obese; no acute distress Respiratory: normal respiratory effort; no respiratory distress, no labored breathing, no retractions and does not use accessory muscles Auscultation: no diminished lung sounds, no crackles, no rales, no rhonchi and no wheezes Cardiovascular: Rate/Rhythm: regular rate and regular rhythm Heart Sounds: normal S1 and normal S2; no gallop, no murmur and no cardiac rub Vessels: no JVD and no carotid bruit Extremities: no edema Gastrointestinal (Abdomen): Inspection/Auscultation: abdomen normal to inspection and normal bowel sounds; abdomen not distended Percussion/Palpation: abdomen soft; abdomen nontender, no guarding and abdomen not rigid Musculoskeletal: Head/Neck/Chest: normocephalic and head atraumatic Skin: no rashes, warm and dry Neurologic: + does not move all extremities (Restricted right shoulder range of motion.) and no focal motor deficits Speech / Cognition: normal speech Psychiatric: A+Ox3, euthymic affect Results & Data ([facility]) Vital Signs (Past 12 Hours) Vital Signs Temp Pulse Pulse Resp BP BP Pulse Ox 01/28/20 13:37 62 18 160/99 H 98 01/28/20 12:55 96 01/28/20 12:33 36.8 C 70 20 173/100 H 96 (1) Hypertension Hypertension type: unspecified Qualified Code(s): I10 - Essential (primary) hypertension
--- NOTE | 2020-01-28 15:34 | History & Physical Report ---
Date of Service January 28, 2020 Assessment & Plan (1) Precordial chest pain: Pt with atypical chest pain at rest and relieved with nitro. Currently he is chest pain free after receiving Nitro paste. Initial troponin 0.015 and EKG relatively unchanged and negative for acute ischemia. Discussed case with cardiology at bedside. Patient with history of CAD with most recent stent in April 2019 secondary to RCA in-stent restenosis with subsequent PCI Last echocardiogram April 2019 as detailed below Admit to PCU Cardiology consulted -appreciate their input Obtain echocardiogram Cycle troponin and repeat EKG Continue ASA, statin, Imdur, Plavix, metoprolol Continue topical nitrates Monitor blood pressure -hypertensive upon arrival per cardiology may need to add amlodipine or titrate Imdur (2) Hypomagnesemia: mag 1.3 received 1g IV mag and 400mg oral supplementation in ED given hx of CKD will repeat mag in a.m. continue mag ox BID - pt stating he has not been compliant with taking magnesium (3) Hypokalemia: K 3.3 received 40meq KCL monitor bmp (4) CAD (coronary artery disease): hx of CAD with prior hx of PCI most recent in April 2019 2/2 to in stent restenosis of RCA subsequent PCI continue ASA, Plavix, Statin, Metoprolol and imdur last echo april 2019 which revealed EF 24% with large size septal, inferior and posterior wall motion abnormality, moderate inferior and posterior wall abnormality and akinesis, left atrium mildly dilated, grade 1 diastolic dysfunction Repeat echocardiogram Further treatment as above (5) Hypertension: Blood pressure elevated upon initial assessment During my evaluation blood pressure 150/80 Continue metoprolol and Imdur Monitor blood pressure during hospital stay, consider adding amlodipine or increasing Imdur (6) COPD (chronic obstructive pulmonary disease): No acute exacerbation Continue current home inhaler regimen of Brovana, Pulmicort and as needed Combivent O2 at bedtime (7) Chronic kidney disease: CKD stage III Baseline creatinine 2.3 BUN/creatinine 16 and 2.12 today Monitor renal function (8) Chronic anemia: Macrocytic anemia H&H 11.4 and 31.1 Continue vitamin B12 and iron supplementation (9) Nocturnal hypoxemia: 2.5L of O2 at HS (10) DVT prophylaxis: SQ Heparin Disposition: admit to tele Follow up: PCP Dr. Jones upon discharge along with appropriate cardiology follow up Pt was seen and examined in collaboration with Dr. 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 Primary Care Provider: Jacob Jones MD This is a 74-year-old male who has significant PMH of CAD, HTN, HLD, COPD, nocturnal hypoxemia on 2.5 L of O2 at at bedtime, idiopathic polyneuropathy, history of prostate cancer status post prostatectomy, AAA who presents to ED secondary to chest pain times several minutes prior to arrival. Symptoms initially started 1.5 weeks ago when he experienced substernal nonradiating chest pain. It occurred while at rest and he took 1 sublingual nitro which relieved symptoms. He then experienced chest pain this morning at rest. Chest pain was substernal, nonradiating, described as "something pushing on my chest," rated at 6/10, initially relieved with 1 sublingual nitro but then returned approximately 1.5 hours later with associated dyspnea and diaphoresis. He took additional nitro which did improve symptoms. When sx initially came on he was drinking cocoa but has no recent meal. He then called [facility] who encouraged him to seek ED for further evaluation. He also took Plavix due to having chest pain. He denies any recent illness. He was hospitalized in early November secondary to chest pain that was ruled out for cardiac in nature. It was felt to be secondary to GI. He feels pain feels similar. Symptoms are not exacerbated with deep breathing or coughing. He denies any fever, chills, sweats, lightheadedness, dizziness, syncope, palpitations, cough, hemoptysis, nausea, vomiting, abdominal pain, change in bowel or urinary habits. He does complain of mild incontinence secondary to prior prostate surgery. Appetite is otherwise been stable and he denies any weight loss/gain or lower extremity edema. In ED patient remained hemodynamically stable but he was relatively hypotensive with BP 160/99. Lab work notable for H&H 11.4 & 34.1,, platelet 166, potassium 3.3, creatinine 2.12, glucose 130, magnesium 1.3, troponin 0.015, LFT and lipase WNL. Chest x-ray revealed cardiomegaly but no acute cardiopulmonary abnormality. EKG revealed normal sinus rhythm with first-degree AV block, mild lateral T wave flattening but relatively unchanged from prior EKG. ED provider spoke with on-call manager of training and development who recommended inpatient observation to rule out cardiac source. In ED he received 1 g IV magnesium, 40 M EQ of KCl, 1 inch Nitropaste with resolution of symptoms. Allergies Allergy/AdvReac Type Severity Reaction Status Date / Time benzocaine Allergy Severe SLOUGHING Verified 01/28/20 13:35 OF SKIN clindamycin Allergy Intermediate RASH Verified 01/28/20 13:35 cyanocobalamin (vitamin B12) Allergy Intermediate Rash Verified 01/28/20 13:35 clobetasol Allergy Mild ITCHING Verified 01/28/20 13:35 doxycycline Allergy Mild RASH Verified 01/28/20 13:35 Penicillins Allergy Mild HIVES Verified 01/28/20 13:35 phenethylamine Allergy Mild Itching Verified 01/28/20 13:35 povidone-iodine Allergy Mild Hives Verified 01/28/20 13:35 [From Betadine] soap [From Betadine] Allergy Mild Hives Verified 01/28/20 13:35 tea tree Allergy Mild ITCHING Verified 01/28/20 13:35 Home Medications Home Medications Medication Instructions Recorded Confirmed Type Combivent Respimat 1 puff INHALATION QID PRN 06/14/18 01/28/20 History allopurinol 300 mg PO QAM 06/14/18 01/28/20 History atorvastatin 80 mg PO QPM 06/14/18 01/28/20 History cholecalciferol (vitamin D3) 2,000 unit PO QAM 06/14/18 01/28/20 History [Vitamin D3] docusate sodium 100 mg PO BID PRN 06/14/18 01/28/20 History famotidine 40 mg PO QAM 06/14/18 01/28/20 History ferrous sulfate 325 mg PO QAM 06/14/18 01/28/20 History lorazepam 0.5 mg PO TID PRN 06/14/18 01/28/20 History metoprolol succinate 25 mg PO QAM 06/14/18 01/28/20 History nitroglycerin 1 tab SUBLINGUAL UD PRN 06/14/18 01/28/20 History oxybutynin chloride 5 mg PO BID 06/14/18 01/28/20 History triamcinolone acetonide 1 applic TOPICAL BID PRN 06/14/18 01/28/20 History Brovana 15 mcg INHALATION BID 01/07/19 01/28/20 History albuterol sulfate 2.5 mg INHALATION Q4 PRN 01/07/19 01/28/20 History budesonide [Pulmicort] 0.5 mg INHALATION BID 01/07/19 01/28/20 History Centrum Silver 1 tab PO QAM 03/29/19 01/28/20 History aspirin [Aspir-81] 81 mg PO DAILY 03/29/19 01/28/20 History hydrocortisone acetate [Anusol-HC] 25 mg OR DAILY PRN 03/29/19 01/28/20 History miconazole nitrate [Antifungal 1 applic TOPICAL DAILY PRN 03/29/19 01/28/20 History Cream (miconazole)] clopidogrel [Plavix] 75 mg PO DAILY 11/03/19 01/28/20 History cyanocobalamin (vitamin B-12) 1,000 mcg PO DAILY 11/03/19 01/28/20 History magnesium oxide 400 mg PO BID #60 tab 11/03/19 01/28/20 Rx pantoprazole 40 mg PO BID #60 tab 11/03/19 01/28/20 Rx albuterol sulfate 2 puffs INH Q6H PRN #18 gm 12/02/19 01/28/20 Rx gabapentin 300 mg PO HS 01/28/20 01/28/20 History isosorbide mononitrate 30 mg PO QAM 01/28/20 01/28/20 History Past Med/Surg History Medical History Anxiety Aortic aneurysm stable 3cm Barretts esophagus Blood clotting disorder Chronic anemia Chronic back pain Chronic kidney disease, stage 3 COPD (chronic obstructive pulmonary disease) inhalers and nebulizers daily Coronary artery disease (Chronic) Diverticular disease GERD (gastroesophageal reflux disease) Gout Phillips filter in place (Chronic) Hearing deficit Hyperlipidemia Hypertension Myocardial Infarction 2017--follows with Dr. Casanova Neuropathy Nocturnal hypoxemia On home oxygen therapy 2.5L N/C at HS Osteoarthritis Prostate cancer sx Recurrent genital herpes simplex (Chronic Unknown) Sleep apnea oxygen at night Temporomandibular joint disorder Surgical History History of arthroscopic knee surgery History of bilateral cataract extraction History of cardiac cath x5--last 2019 History of colonoscopy History of esophagogastroduodenoscopy (EGD) History of heart artery stent multiple--last 11/03 to restenosis History of hernia repair epigastric History of left shoulder replacement History of lumbar surgery History of mandibular surgery tmj repair History of prostate biopsy malignant History of prostatectomy History of right inguinal hernia repair History of right shoulder replacement History of tooth extraction all teeth removed Status post correction of deviated nasal septum Status post total hip replacement, bilateral Family History Other Family history not known due to adoption Social History Preferred Language: Mongolian Communication Ability: Effective 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: No Beliefs That Will Affect Care: None Current Living Situation: Spouse Current Living Situation Comment: Lives with and son current occupational status: retired Other Information That Helps Us Care for You: No Feels Safe at Home: Yes Safety Concerns: Feels Safe At This Time Smoking Status: Former smoker Tobacco Type: cigars ; Years Smoked: 42 ; Second Hand Exposure: No ; Hx Alcohol Use: No Review of Systems Review of Systems: All systems reviewed & are unremarkable except as noted in HPI & below Physical Exam Physical Exam: Constitutional: WD/WN, M, vitals as above, NAD, sitting up in bed, pleasant, conversing easily Head: Normocephalic, Atraumatic Eyes: PERRL, conjunctivae normal, anicteric sclerae ENMT: [place], external ear and nose normal, oropharynx normal, Neck: trachea midline, no thyromegaly normal visual inspection Respiratory: normal respiratory effort, lungs clear to auscultation, no wheeze, rales, rhonchi. Normal insp/exp effort, no accessory muscle use Cardiovascular: RRR, no murmur, no edema Vessels: no JVD or carotid bruit Chest: normal inspection of chest, no pain to palpation of anterior chest wall Abdomen: normal bowel sounds, soft, nontender, no hepatosplenomegaly Musculoskeletal: no cyanosis or clubbing, extremities motor strength 5/5 Skin: no rashes, warm and dry normal turgor Neurologic: PERRL, EOMI, accommodation nl, no face palsy, no dysarthria CN's II-XI intact bilaterally and moves all extremities Psychiatric: A+Ox3, euthymic affect Lymphatic: no cervical or axillary lymphadenopathy : deferred Results & Data Results & Data ([facility]) Vital Signs (Past 12 Hours) Vital Signs Temp Pulse Pulse Resp BP BP Pulse Ox 01/28/20 13:37 62 18 160/99 H 98 01/28/20 12:55 96 01/28/20 12:33 36.8 C 70 20 173/100 H 96 Laboratory Results Short CBC 01/28/20 Range/Units 12:53 WBC 6.01 (4.8-10.8) K/uL Hgb 11.4 L (14.0-18.0) g/dL Hct 34.1 L (42-52) % Plt Count 166 (130-400) K/uL [facility] 01/28/20 12:53 Sodium 142 Potassium 3.3 L Chloride 110 H Carbon Dioxide 23 BUN 16 Creatinine 2.12 H Glucose 130 H Calcium 8.8 Cardiac Enzymes 01/28/20 Range/Units 12:53 Troponin I 0.015 (0-0.045) ng/ml Liver Function 01/28/20 Range/Units 12:53 Total Bilirubin 0.3 (0.2-1) mg/dl AST 17 (15-37) U/L ALT 21 (12-78) U/L Alkaline Phosphatase 137 H (45-117) U/L Albumin 3.6 (3.4-5.0) gm/dl Diagnostic Findings CXR: IMPRESSION: Cardiomegaly without acute process. Medications Administered Short CBC 01/28/20 Range/Units 12:53 WBC 6.01 (4.8-10.8) K/uL Hgb 11.4 L (14.0-18.0) g/dL Hct 34.1 L (42-52) % Plt Count 166 (130-400) K/uL [facility] 01/28/20 12:53 Sodium 142 Potassium 3.3 L Chloride 110 H Carbon Dioxide 23 BUN 16 Creatinine 2.12 H Glucose 130 H Calcium 8.8 Cardiac Enzymes 01/28/20 Range/Units 12:53 Troponin I 0.015 (0-0.045) ng/ml Liver Function 01/28/20 Range/Units 12:53 Total Bilirubin 0.3 (0.2-1) mg/dl AST 17 (15-37) U/L ALT 21 (12-78) U/L Alkaline Phosphatase 137 H (45-117) U/L Albumin 3.6 (3.4-5.0) gm/dl ECG Rate (beats per minute): 66 Rhythm: normal sinus Findings: + 1st degree AV block and + nonspecific-ST abn Additional Comments: mild flattening to lateral t waves but relative unchanged from prior ecg in 11/2019 Code Status & VTE Plan VTE Prophylaxis Plan VTE Prophylaxis will be ordered: Yes Supervising Physician Co-Signing Physician Notes I have seen and examined the patient and have discussed the case with the provider above. I agree with the assessment and plan as stated. 74 yo M with known CAD presented with two episodes of acute chest pain relieved with nitro. He has a h/o CAD with chronic nitro use. EKG with no evidence of acute ischemia and patient is chest pain-free on the nitro paste. Trop negative. BP is in the 150s systolic. Consider amlodipine per Cardiology recommendations if not controlled overnight. DO Reinaldo (1) Chronic kidney disease Chronic kidney disease stage: unspecified stage Qualified Code(s): N18.9 - Chronic kidney disease, unspecified (2) Hypertension Hypertension type: unspecified Qualified Code(s): I10 - Essential (primary) hypertension
[2020-01-28] MEDS ORDERED: ONDANSETRON INJ 2 MG/ML 2 ML VIAL IV PRN (16:16)
[2020-01-28] MEDS ORDERED: IPRATROPIUM BROMIDE/ALBUTEROL respimat INH INH PRN (16:16)
[2020-01-28] MEDS ORDERED: TRIAMCINOLONE ACET 0.1% CR 15 GM TUBE TOP PRN (16:16)
[2020-01-28] MEDS ORDERED: LORazepam 0.5 MG TAB PO PRN (16:16)
[2020-01-28] MEDS ORDERED: ALBUTEROL 0.083% NEBU SOLN 3 ML VIAL INH PRN (16:16)
[2020-01-28] MEDS ORDERED: ACETAMINOPHEN 325 MG TAB PO PRN (16:16)
[2020-01-28] MEDS ORDERED: POLYETHYLENE (MIRALAX) 17 GM PACK PO PRN (16:16)
[2020-01-28] MEDS ORDERED: ALUMINUM/MAGNESIUM SUSP 18 ML, LIDOCAINE HCL VISCOUS 2% 6 ML, BARCODE IDENTIFIER 1 EA PO ONE (16:45)
[2020-01-28] MEDS: FORMOTEROL 20 MCG/2 ML VIAL INH SCH (19:46)
[2020-01-28] MEDS: BUDESONIDE 0.5 MG/2 ML VIAL (PULMICORT) INH SCH (19:46)
[2020-01-28] MEDS: OXYBUTYNIN CHLORIDE 5 MG TAB PO SCH (20:15)
[2020-01-28] MEDS: MAGNESIUM OXIDE 400 MG TAB PO SCH (20:15)
[2020-01-28] MEDS: PANTOprazole 40 MG TAB PO SCH (20:15)
[2020-01-28] MEDS: HEPARIN SOD 5,000 UNIT/0.5 ML VIAL SQ SCH (20:16)
[2020-01-28] MEDS: NITROGLYCERIN 2% OINTMENT 30GM TUBE EXT SCH (20:22)
[2020-01-28] MEDS ORDERED: GABAPENTIN 300 MG CAP PO SCH (21:00)
[2020-01-28] MEDS ORDERED: ATORVASTATIN 40 MG TAB PO SCH (21:00)
[2020-01-29] MEDS: NITROGLYCERIN 2% OINTMENT 30GM TUBE EXT SCH ×2 (02:06→07:34)
[2020-01-29] MEDS: HEPARIN SOD 5,000 UNIT/0.5 ML VIAL SQ SCH (05:55)
[2020-01-29 06:16] LABS: Hematocrit (blood only) 34.7 % (42-52); Hemoglobin 11.4 g/dL (14.0-18.0); Mean Corpuscular Hemoglobin 33.5 pg (25-34); Mean Corpuscular Hgb Conc 32.9 g/dL (32-36); Mean Corpuscular Volume 102.1 fL (80-100); Mean Platelet Volume 10.3 fL (7.4-10.4); Platelet Count 175 K/uL (130-400); RDW Coefficient of Variation 13.9 % (11.5-14.5); RDW Standard Deviation 51.8 fL (36.4-46.3); White Blood Count 5.02 K/uL (4.8-10.8)
[2020-01-29 07:00] LABS: BUN Creatinine Ratio 8.9 (10-20); Creatinine Clr Calc Pharmacy 35.4 ml/min; Est GFR (Non-African American) 31.9; Magnesium 1.9 mg/dl (1.8-2.4); Potassium 4.2 mmol/L (3.5-5.1)
[2020-01-29] MEDS: BUDESONIDE 0.5 MG/2 ML VIAL (PULMICORT) INH SCH (07:03)
[2020-01-29] MEDS: FORMOTEROL 20 MCG/2 ML VIAL INH SCH (07:03)
[2020-01-29 07:18] LABS: Estimated Average Glucose 120 mg/dl; Hemoglobin A1C 5.8 % (4.5-5.6)
[2020-01-29] MEDS: MAGNESIUM OXIDE 400 MG TAB PO SCH (07:30)
[2020-01-29] MEDS: OXYBUTYNIN CHLORIDE 5 MG TAB PO SCH (07:31)
[2020-01-29] MEDS: PANTOprazole 40 MG TAB PO SCH (07:31)
[2020-01-29] MEDS ORDERED: METOPROLOL SUCC 25MG EXT REL TAB PO SCH (09:00)
[2020-01-29] MEDS ORDERED: CLOPIDOGREL BISULFATE 75 MG TAB PO SCH (09:00)
[2020-01-29] MEDS ORDERED: allopurinoL 300 MG TAB PO SCH (09:00)
[2020-01-29] MEDS ORDERED: CYANOCOBALAMIN 500 MCG TABLET (VITAMIN B-12) PO SCH (09:00)
[2020-01-29] MEDS ORDERED: CHOLECALCIFEROL 1,000 UNITS 25 MCG TAB PO SCH (09:00)
[2020-01-29] MEDS ORDERED: ISOSORBIDE MONO EXTENDED REL 30 MG TABCR PO SCH (09:00)
[2020-01-29] MEDS ORDERED: FAMOTIDINE 40 MG TABLET PO SCH (09:00)
[2020-01-29] MEDS ORDERED: FERROUS SULFATE 325 MG TAB PO SCH (09:00)
[2020-01-29] MEDS ORDERED: CEROVITE ADV FORMULA TAB PO SCH (09:00)
[2020-01-29] MEDS ORDERED: ASPIRIN 81 MG ECTAB PO SCH (09:00)
--- NOTE | 2020-01-29 11:19 | Cardiology Progress Note ---
Date of Service January 29, 2020 Assessment & Plan (1) Atypical chest pain: (2) History of coronary artery disease: (3) Hypertension: (4) Hypokalemia: (5) Hypomagnesemia: Patient presented to the emergency department with atypical chest discomfort. He is ruled out for myocardial infarction. ECG without ischemic changes. Symptoms improved with GI cocktail overnight. Serum magnesium has been supplemented appropriately. Continue cardiovascular medications as previously ordered. Follow up in 2-[address] Casanova. Subjective Patient seen and examined at the bedside. Feeling well from a cardiovascular perspective. No recurrent chest discomfort overnight. Treated with "GI cocktail" yesterday. Cardiac enzymes are undetectable. Denies palpitations, orthopnea, PND, lower extremity edema, or claudication. No signs/symptoms of GI/ blood loss. Patient tolerating diet and medications. Offers no other concerns/complaints at this time. Review of Systems Review of Systems: All systems reviewed & are unremarkable except as noted in HPI & below Physical Exam Constitutional: well developed, well nourished, + ill appearing and + obese; no acute distress Respiratory: normal respiratory effort; no respiratory distress, no labored breathing, no retractions and does not use accessory muscles Auscultation: no diminished lung sounds, no crackles, no rales, no rhonchi and no wheezes Cardiovascular: Rate/Rhythm: regular rate and regular rhythm Heart Sounds: normal S1 and normal S2; no gallop, no murmur and no cardiac rub Vessels: no JVD and no carotid bruit Extremities: no edema Gastrointestinal (Abdomen): Inspection/Auscultation: abdomen normal to inspection and normal bowel sounds; abdomen not distended Percussion/Palpation: abdomen soft; abdomen nontender, no guarding and abdomen not rigid Musculoskeletal: Head/Neck/Chest: normocephalic and head atraumatic Skin: no rashes, warm and dry Neurologic: + does not move all extremities (Restricted right shoulder range of motion.) and no focal motor deficits Speech / Cognition: normal speech Psychiatric: A+Ox3, euthymic affect Results & Data Vital Signs (Past 12 Hours) Vital Signs Temp Pulse Resp BP Pulse Ox 01/29/20 10:33 127/80 01/29/20 10:32 36.5 C 62 19 159/95 H 94 01/29/20 07:20 36.5 C 62 19 159/95 H 94 01/29/20 07:05 63 18 93 01/29/20 03:01 36.3 C L 59 L 19 160/89 H 96 (1) Hypertension Hypertension type: unspecified Qualified Code(s): I10 - Essential (primary) hypertension
--- NOTE | 2020-01-29 12:03 | Hospitalist Progress Note ---
Date of Service January 29, 2020 Assessment & Plan (1) Precordial chest pain: Pt with atypical chest pain at rest and relieved with nitro. Patient with history of CAD with most recent stent in April 2019 secondary to RCA in-stent restenosis with subsequent PCI Last echocardiogram April 2019 as detailed below Serial cardiac enzymes and EKG remain unremarkable Echo of the heart showed: EF of 55 to 60%, there is moderate concentric LV hypertrophy, no wall motion abnormalities, mild aortic regurgitation and mild aortic root dilatation. No significant change compared with prior study Cardiology consulted -appreciate their input Continue ASA, statin, Imdur, Plavix, metoprolol Remains stable without any cardiac symptoms Will be discharged home this afternoon (2) Hypomagnesemia: mag 1.3 received 1g IV mag and 400mg oral supplementation in ED given hx of CKD will repeat mag in a.m. continue mag ox BID - pt stating he has not been compliant with taking magnesium Magnesium level has been normalized (3) Hypokalemia: K 3.3 received 40meq KCL monitor bmp Potassium is 4.2 as of 01/29/2020 (4) CAD (coronary artery disease): hx of CAD with prior hx of PCI most recent in April 2019 2/ to in stent restenosis of RCA subsequent PCI continue ASA, Plavix, Statin, Metoprolol and imdur last echo april 2019 which revealed EF 24% with large size septal, inferior and posterior wall motion abnormality, moderate inferior and posterior wall abnormality and akinesis, left atrium mildly dilated, grade 1 diastolic dysfunction No more cardiac symptoms Cardiology cleared the patient to be discharged (5) Hypertension: Blood pressure elevated upon initial assessment During my evaluation blood pressure 150/80 Continue metoprolol and Imdur Monitor blood pressure during hospital stay, consider adding amlodipine or increasing Imdur Blood pressure remains stable and will be discharged home this afternoon (6) COPD (chronic obstructive pulmonary disease): No acute exacerbation Continue current home inhaler regimen of Brovana, Pulmicort and as needed Combivent O2 at bedtime (7) Chronic kidney disease: CKD stage III Baseline creatinine 2.3 BUN/creatinine 16 and 2.12 today Monitor renal function Creatinine is at his baseline (8) Chronic anemia: Macrocytic anemia H&H 11.4 and 31.1 Continue vitamin B12 and iron supplementation (9) Nocturnal hypoxemia: 2.5L of O2 at HS (10) DVT prophylaxis: SQ Heparin Disposition: admit to tele Follow up: PCP Dr. Jones upon discharge along with appropriate cardiology follow up Discharged home this afternoon Admission and Anticipated Discharge Date Admission Date: January 28, 2020 Subjective The patient was seen and examined in telemetry unit Denies any more chest pain and/or palpitation No shortness of breath as well He was seen by the pulpwood buyer and was advised that he can go home Review of Systems Review of Systems: All systems reviewed and are unremarkable except as noted below Cardiovascular: no chest pain, no dyspnea at rest and no palpitations Physical Exam Physical Exam: Sitting at the edge of the bed without any discomfort Constitutional: well developed and well nourished; no acute distress and not ill appearing Eyes: PERRL, conjunctivae normal, anicteric sclerae ENMT: external ear and nose normal, oropharynx normal Neck: trachea midline, no thyromegaly Respiratory: normal respiratory effort; no respiratory distress Auscultation: lungs clear to auscultation bilaterally Cardiovascular: Rate/Rhythm: regular rate and regular rhythm Heart Sounds: no murmur Gastrointestinal (Abdomen): Inspection/Auscultation: abdomen normal to inspection and normal bowel sounds Musculoskeletal: No acute arthritis in any joints Neurologic: moves all extremities; no focal motor deficits Psychiatric: A+Ox3, euthymic affect Lymphatic: no cervical or axillary lymphadenopathy Results & Data Results & Data ([facility]) Vital Signs (Past 12 Hours) Vital Signs Temp Pulse Resp BP Pulse Ox 01/29/20 11:18 36.6 C 61 19 129/79 95 01/29/20 10:33 127/80 01/29/20 10:32 36.5 C 62 19 159/95 H 94 01/29/20 07:20 36.5 C 62 19 159/95 H 94 01/29/20 07:05 63 18 93 01/29/20 03:01 36.3 C L 59 L 19 160/89 H 96 Laboratory Results Short CBC 01/28/20 01/29/20 Range/Units 12:53 05:41 WBC 6.01 5.02 (4.8-10.8) K/uL Hgb 11.4 L 11.4 L (14.0-18.0) g/dL Hct 34.1 L 34.7 L (42-52) % Plt Count 166 175 (130-400) K/uL BMP 01/28/20 01/29/20 12:53 05:41 Sodium 142 140 Potassium 3.3 L 4.2 D Chloride 110 H 107 Carbon Dioxide 23 28 BUN 16 18 Creatinine 2.12 H 2.00 H Glucose 130 H 92 Calcium 8.8 9.0 Cardiac Enzymes 01/28/20 01/28/20 01/29/20 Range/Units 12:53 17:55 00:18 Troponin I 0.015 < 0.015 < 0.015 (0-0.045) ng/ml Liver Function 01/28/20 Range/Units 12:53 Total Bilirubin 0.3 (0.2-1) mg/dl AST 17 (15-37) U/L ALT 21 (12-78) U/L Alkaline Phosphatase 137 H (45-117) U/L Albumin 3.6 (3.4-5.0) gm/dl Medications Administered Current Inpatient Medications Acetaminophen (Tylenol) 650 mg PO Q4H PRN PRN Reason: Pain or Fever Stop: 02/27/20 16:15 Albuterol (Ventolin 0.083% 2.5mg/3ml) 2.5 mg INH Q4H PRN PRN Reason: Shortness Of Breath Stop: 02/27/20 16:15 Albuterol (Combivent Respimat) 1 puffs INH QID PRN PRN Reason: Cough Stop: 02/27/20 16:15 Allopurinol (Zyloprim) 300 mg PO QAM [facility] Stop: 02/28/20 08:59 Last Admin: 01/29/20 07:29 Dose: 300 mg Documented by: Aspirin (Ecotrin Ectab) 81 mg PO DAILY [facility] Stop: 02/28/20 08:59 Last Admin: 01/29/20 07:29 Dose: 81 mg Documented by: Atorvastatin Calcium (Lipitor) 80 mg PO QPM [facility] Stop: 02/27/20 20:59 Last Admin: 01/28/20 20:16 Dose: 80 mg Documented by: Budesonide (Pulmicort Respules) 0.5 mg INH BIDR [facility] Stop: 02/27/20 18:59 Last Admin: 01/29/20 07:03 Dose: 0.5 mg Documented by: Clopidogrel Bisulfate (Plavix) 75 mg PO DAILY [facility] Stop: 02/28/20 08:59 Last Admin: 04/29/20 07:29 Dose: 75 mg Documented by: Cyanocobalamin (Vitamin B-12) 1,000 mcg PO DAILY [facility] Stop: 02/28/20 08:59 Last Admin: 01/29/20 07:30 Dose: 1,000 mcg Documented by: Famotidine (Pepcid) 40 mg PO QAM [facility] Stop: 02/28/20 08:59 Last Admin: 01/29/20 07:29 Dose: 40 mg Documented by: Ferrous Sulfate (Feosol) 325 mg PO QAM [facility] Stop: 02/28/20 08:59 Last Admin: 01/29/20 07:29 Dose: 325 mg Documented by: Formoterol Fumarate (Perforomist) 20 mcg INH BIDR [facility] Stop: 02/27/20 18:59 Last Admin: 01/29/20 07:03 Dose: 20 mcg Documented by: Gabapentin (Neurontin) 300 mg PO HS [facility] Stop: 02/27/20 20:59 Last Admin: 01/28/20 20:16 Dose: 300 mg Documented by: Heparin Sodium (Porcine) (Heparin Sodium (Porcine)) 5,000 units SQ Q8 [facility] Stop: 02/27/20 21:59 Last Admin: 01/29/20 05:55 Dose: 5,000 units Documented by: Isosorbide Mononitrate (Imdur Extended Rel) 30 mg PO QAM [facility] Stop: 02/28/20 08:59 Last Admin: 01/29/20 07:29 Dose: 30 mg Documented by: Lorazepam (Ativan) 0.5 mg PO TID PRN PRN Reason: Anxiety Stop: 02/27/20 16:15 Magnesium Oxide (Mag-Ox) 400 mg PO BID [facility] Stop: 02/27/20 20:59 Last Admin: 01/29/20 07:30 Dose: 400 mg Documented by: Metoprolol Succinate (Toprol Xl) 25 mg PO QAM [facility] Stop: 02/28/20 08:59 Last Admin: 01/29/20 07:28 Dose: 25 mg Documented by: Multivitamins/Minerals (Multivitamin W/ Minerals Tab) 1 tab PO QAM [facility] Stop: 02/28/20 08:59 Last Admin: 01/29/20 07:30 Dose: 1 tab Documented by: Nitroglycerin (Nitro-Bid 2%) 0.5 inch EXT Q6H [facility] Stop: 02/27/20 19:59 Last Admin: 01/29/20 07:34 Dose: 0.5 inch Documented by: Ondansetron HCl (Zofran) 4 mg IV Q6H PRN PRN Reason: Nausea Stop: 02/27/20 16:15 Oxybutynin Chloride (Ditropan) 5 mg PO BID [facility] Stop: 02/27/20 20:59 Last Admin: 01/29/20 07:31 Dose: 5 mg Documented by: Pantoprazole Sodium (Protonix) 40 mg PO BID [facility] Stop: 02/27/20 20:59 Last Admin: 01/29/20 07:31 Dose: 40 mg Documented by: Polyethylene Glycol (Miralax Powder Packet) 17 gm PO DAILY PRN PRN Reason: Constipation Stop: 02/27/20 16:15 Triamcinolone Acetonide (Kenalog 0.1%) 1 appln TOP BID PRN PRN Reason: PRN Stop: 02/27/20 16:15 Vitamin D (Vitamin D3) 2,000 units PO QAM [facility] Stop: 02/28/20 08:59 Last Admin: 01/29/20 07:30 Dose: 2,000 units Documented by: (1) Hypertension Hypertension type: unspecified Qualified Code(s): I10 - Essential (primary) hypertension (2) Chronic kidney disease Chronic kidney disease stage: unspecified stage Qualified Code(s): N18.9 - Chronic kidney disease, unspecified
--- NOTE | 2020-01-29 13:53 | Electrocardiogram Report ---
Test Reason : Blood Pressure : / mmHG Vent. Rate : 062 BPM Atrial Rate : 062 BPM P-R Int : 224 ms QRS Dur : 084 ms QT Int : 482 ms P-R-T Axes : -06 039 051 degrees QTc Int : 489 ms Sinus rhythm with 1st degree A-V block Increased R/S ratio in V1, consider early transition or posterior infarct Abnormal ECG When compared with ECG of 28-JAN-2020 12:42, Nonspecific T wave abnormality no longer evident in Inferior leads T wave inversion no longer evident in Lateral leads QT has lengthened Confirmed by Boaz Dunn ([id number]) on 01/29/2020 1:52:44 PM Referred By: REFERRED SELF Confirmed By:Boaz Dunn
--- NOTE | 2020-01-30 07:54 | Discharge Summary ---
Date of Service January 30, 2020 Admission HPI Per Admitting Provider This is a 74-year-old male who has significant PMH of CAD, HTN, HLD, COPD, nocturnal hypoxemia on 2.5 L of O2 at at bedtime, idiopathic polyneuropathy, history of prostate cancer status post prostatectomy, AAA who presents to ED secondary to chest pain times several minutes prior to arrival. Symptoms initially started 1.5 weeks ago when he experienced substernal nonradiating chest pain. It occurred while at rest and he took 1 sublingual nitro which relieved symptoms. He then experienced chest pain this morning at rest. Chest pain was substernal, nonradiating, described as "something pushing on my chest," rated at 6/10, initially relieved with 1 sublingual nitro but then returned approximately 1.5 hours later with associated dyspnea and diaphoresis. He took additional nitro which did improve symptoms. When sx initially came on he was drinking cocoa but has no recent meal. He then called [facility] who encouraged him to seek ED for further evaluation. He also took Plavix due to having chest pain. He denies any recent illness. He was hospitalized in early November secondary to chest pain that was ruled out for cardiac in nature. It was felt to be secondary to GI. He feels pain feels similar. Symptoms are not exacerbated with deep breathing or coughing. He denies any fever, chills, sweats, lightheadedness, dizziness, syncope, palpitations, cough, hemoptysis, nausea, vomiting, abdominal pain, change in bowel or urinary habits. He does complain of mild incontinence secondary to prior prostate surgery. Appetite is otherwise been stable and he denies any weight loss/gain or lower extremity edema. In ED patient remained hemodynamically stable but he was relatively hypotensive with BP 160/99. Lab work notable for H&H 11.4 & 34.1,, platelet 166, potassium 3.3, creatinine 2.12, glucose 130, magnesium 1.3, troponin 0.015, LFT and lipase WNL. Chest x-ray revealed cardiomegaly but no acute cardiopulmonary abnormality. EKG revealed normal sinus rhythm with first-degree AV block, mild lateral T wave flattening but relatively unchanged from prior EKG. ED provider spoke with on-call sport psychologist who recommended inpatient observation to rule out cardiac source. In ED he received 1 g IV magnesium, 40 M EQ of KCl, 1 inch Nitropaste with resolution of symptoms. Admission Exam Per Admitting Provider Physical Exam: Constitutional: WD/WN, M, vitals as above, NAD, sitting up in bed, pleasant, conversing easily Head: Normocephalic, Atraumatic Eyes: PERRL, conjunctivae normal, anicteric sclerae ENMT: [place], external ear and nose normal, oropharynx normal, Neck: trachea midline, no thyromegaly normal visual inspection Respiratory: normal respiratory effort, lungs clear to auscultation, no wheeze, rales, rhonchi. Normal insp/exp effort, no accessory muscle use Cardiovascular: RRR, no murmur, no edema Vessels: no JVD or carotid bruit Chest: normal inspection of chest, no pain to palpation of anterior chest wall Abdomen: normal bowel sounds, soft, nontender, no hepatosplenomegaly Musculoskeletal: no cyanosis or clubbing, extremities motor strength 5/5 Skin: no rashes, warm and dry normal turgor Neurologic: PERRL, EOMI, accommodation nl, no face palsy, no dysarthria CN's II-XI intact bilaterally and moves all extremities Psychiatric: A+Ox3, euthymic affect Lymphatic: no cervical or axillary lymphadenopathy : deferred Principal Diagnosis Chest pain, ACS has been ruled out, CAD, hypertension Discharge Exam Constitutional well developed and well nourished; no acute distress and not ill appearing Eyes PERRL, conjunctivae normal, anicteric sclerae ENMT external ear and nose normal, oropharynx normal Neck trachea midline, no thyromegaly Respiratory normal respiratory effort; no respiratory distress Auscultation: lungs clear to auscultation bilaterally Cardiovascular Rate/Rhythm: regular rate and regular rhythm Heart Sounds: no murmur Gastrointestinal (Abdomen) Inspection/Auscultation: abdomen normal to inspection and normal bowel sounds Neurologic moves all extremities; no focal motor deficits Psychiatric A+Ox3, euthymic affect Lymphatic no cervical or axillary lymphadenopathy Discharge Data Allergies Allergy/AdvReac Type Severity Reaction Status Date / Time benzocaine Allergy Severe SLOUGHING Verified 01/28/20 13:35 OF SKIN clindamycin Allergy Intermediate RASH Verified 01/28/20 13:35 cyanocobalamin (vitamin B12) Allergy Intermediate Rash Verified 01/28/20 13:35 clobetasol Allergy Mild ITCHING Verified 01/28/20 13:35 doxycycline Allergy Mild RASH Verified 01/28/20 13:35 Penicillins Allergy Mild HIVES Verified 01/28/20 13:35 phenethylamine Allergy Mild Itching Verified 01/28/20 13:35 povidone-iodine Allergy Mild Hives Verified 01/28/20 13:35 [From Betadine] soap [From Betadine] Allergy Mild Hives Verified 01/28/20 13:35 tea tree Allergy Mild ITCHING Verified 01/28/20 13:35 Consultations 01/28/20 14:22 ED Decision to Admit Stat 01/28/20 16:16 Consult Cardiology Routine Hospital Course (1) Precordial chest pain: Pt with atypical chest pain at rest and relieved with nitro. Patient with history of CAD with most recent stent in April 2019 secondary to RCA in-stent restenosis with subsequent PCI Last echocardiogram April 2019 as detailed below Serial cardiac enzymes and EKG remain unremarkable Echo of the heart showed: EF of 55 to 60%, there is moderate concentric LV hypertrophy, no wall motion abnormalities, mild aortic regurgitation and mild aortic root dilatation. No significant change compared with prior study Cardiology consulted -appreciate their input Continue ASA, statin, Imdur, Plavix, metoprolol Remains stable without any cardiac symptoms Will be discharged home this afternoon (2) Hypomagnesemia: mag 1.3 received 1g IV mag and 400mg oral supplementation in ED given hx of CKD will repeat mag in a.m. continue mag ox BID - pt stating he has not been compliant with taking magnesium Magnesium level has been normalized (3) Hypokalemia: K 3.3 received 40meq KCL monitor bmp Potassium is 4.2 as of 01/29/2020 (4) CAD (coronary artery disease): hx of CAD with prior hx of PCI most recent in April 201911/03 to in stent restenosis of RCA subsequent PCI continue ASA, Plavix, Statin, Metoprolol and imdur last echo april 2019 which revealed EF 24% with large size septal, inferior and posterior wall motion abnormality, moderate inferior and posterior wall abnormality and akinesis, left atrium mildly dilated, grade 1 diastolic dysfunction No more cardiac symptoms Cardiology cleared the patient to be discharged (5) Hypertension: Blood pressure elevated upon initial assessment During my evaluation blood pressure 150/80 Continue metoprolol and Imdur Monitor blood pressure during hospital stay, consider adding amlodipine or increasing Imdur Blood pressure remains stable and will be discharged home this afternoon (6) COPD (chronic obstructive pulmonary disease): No acute exacerbation Continue current home inhaler regimen of Brovana, Pulmicort and as needed Combivent O2 at bedtime (7) Chronic kidney disease: CKD stage III Baseline creatinine 2.3 BUN/creatinine 16 and 2.12 today Monitor renal function Creatinine is at his baseline (8) Chronic anemia: Macrocytic anemia H&H 11.4 and 31.1 Continue vitamin B12 and iron supplementation (9) Nocturnal hypoxemia: 2.5L of O2 at HS (10) DVT prophylaxis: SQ Heparin Disposition: admit to tele Follow up: PCP Dr. Jones upon discharge along with appropriate cardiology follow up Discharged home this afternoon Total Time Total Time Spent Total Time Spent (In Minutes): 35 minutes Total Time Includes: Examination of the Patient, Discharge Planning, Medication Reconciliation and Communication With Other Providers Discharge Plan Discharge Items Patient Disposition: Home - Self-Care Reason For Visit: CHEST PAIN Discharge Diagnosis: Chest pain, ACS has been ruled out, CAD, hypertension Condition on Discharge: Good Activity: Resume your previous activity Non-emergency contact: Primary Care Provider Call non-emergency contact if: you have any medication questions Follow-up/Referrals: Alphonso Casanova DO [Physician] - 02/17/20 11:00 am Jacob Jones MD [Primary Care Provider] - 02/04/20 11:00 am Diet: Heart Healthy Addtl Attending Provider Instructions: Continue your current cardiac medications Pending Studies at Discharge: No Stand-Alone Forms: My [facility] SSN [employer], Smoking Cessation Medications and DC Order Prescriptions: Continued atorvastatin 80 mg tablet 80 mg PO QPM RF: 0 triamcinolone acetonide 0.1 % cream 1 applic Topical BID PRN (Reason: PRN) RF: 0 famotidine 20 mg tablet 40 mg PO QAM RF: 0 lorazepam 0.5 mg tablet 0.5 mg PO TID PRN (Reason: Anxiety) RF: 0 ferrous sulfate 325 mg (65 mg iron) Tablet 325 mg PO QAM RF: 0 nitroglycerin 0.4 mg tablet, sublingual 1 tab Sublingual UD PRN (Reason: Angina) RF: 0 docusate sodium 100 mg Capsule 100 mg PO BID PRN (Reason: Constipation) RF: 0 allopurinol 300 mg tablet 300 mg PO QAM RF: 0 metoprolol succinate 25 mg tablet extended release 24 hr 25 mg PO QAM RF: 0 oxybutynin chloride 5 mg tablet 5 mg PO BID RF: 0 cholecalciferol (vitamin D3) [Vitamin D3] 2,000 unit Capsule 2,000 unit PO QAM RF: 0 Combivent Respimat 20-100 mcg/actuation Mist 1 puff INHALATION QID PRN (Reason: Cough) RF: 0 albuterol sulfate 90 mcg/actuation HFA aerosol inhaler 2 puffs INH Q6H PRN (Reason: shortness of breath or wheezing) Qty: 18 RF: 0 albuterol sulfate 2.5 mg /3 mL (0.083 %) Solution For Nebulization 2.5 mg INHALATION Q4 PRN (Reason: Shortness Of Breath) RF: 0 budesonide [Pulmicort] 0.5 mg/2 mL Suspension For Nebulization 0.5 mg INHALATION BID RF: 0 Brovana 15 mcg/2 mL Solution For Nebulization 15 mcg INHALATION BID RF: 0 miconazole nitrate [Antifungal Cream (miconazole)] 2 % Cream 1 applic TOPICAL DAILY PRN (Reason: NEEDED) RF: 0 aspirin [Aspir-81] 81 mg Tablet,Delayed Release (Dr/Ec) 81 mg PO DAILY RF: 0 hydrocortisone acetate [Anusol-HC] 25 mg Suppository 25 mg [place] DAILY PRN (Reason: Hemorrhoids) RF: 0 Centrum Silver 0.4-300-250 mg-mcg-mcg Tablet 1 tab PO QAM RF: 0 clopidogrel [Plavix] 75 mg Tablet 75 mg PO DAILY RF: 0 cyanocobalamin (vitamin B-12) 1,000 mcg Capsule 1,000 mcg PO DAILY RF: 0 pantoprazole 40 mg Tablet,Delayed Release (Dr/Ec) 40 mg PO BID Qty: 60 RF: 1 magnesium oxide 400 mg (241.3 mg magnesium) tablet 400 mg PO BID Qty: 60 RF: 1 isosorbide mononitrate 30 mg tablet extended release 24 hr 30 mg PO QAM RF: 0 gabapentin 300 mg Capsule 300 mg PO HS RF: 0 Discharge Orders: Discharge Order (Routine); Ordered 01/29/20 Ordered By: Sotero Medrano Admission Data Admit Date/Time: 01/28/20 14:35 Attending Provider: Sotero Medrano Admit Provider: Ro Najera Primary Care Provider: Jacob Jones Other Providers: Ro Najera ; Hai Canseco Other Interventions: Discharge Summary Assessment (RN) Last Done: 01/29/20 10:32 DC Date/Time DO NOT enter until pt leaves facility: 01/29/20 12:28
== END 2020-01-29 12:28 | disposition home or self-care (01) | DRG 313 ==
LOC: ED 12:31 → 2S 14:35 → SUATTDRO 14:35 → 2S 15:49

== ENCOUNTER 2022-03-23 07:09 | Inpatient (IN) ==
--- NOTE | 2022-03-23 07:23 | Emergency Department Note ---
Impression & Plan Left-sided chest pain, New onset atrial fibrillation, Acute electrocardiogram changes, Hypomagnesemia ED Provider Note Name: JUAN TYSON Age: 77 Sex: M Arrives Via: Walk-In Informant: Patient ED Provider: Emile Berumen MD Chief Complaint: Impression: As per impressions above Medical Decision Making: Pleasant 77-year-old male with a history of CAD status post stenting a few years ago as well as COPD, hypomagnesemia, hypertension, dyslipidemia arrives for evaluation of episodes of chest pain as well as worsening shortness of breath and weakness over the last few months. On examination he is tired appearing mildly anxious but otherwise appears well. EKG shows new onset A. fib with a moderately prolonged QRS compared to previous EKGs though otherwise similar morphology without STEMI. Initial troponin is negative. His magnesium are quite low as well as TSH consistent noting he has not really been taking those medications very frequently. Patient is a high risk individual with chest pain thus will require hospitalization and I think this will give time to further management of his new onset A. fib. Will defer anticoagulation choice to h ospitalist and patient has been rate controlled throughout most of the stay. Patient without leg swelling, calf pain, severe shortness of breath, hypoxia or tachycardia thus we will hold off on any PE work-up at this time. Prior Medical Record and Triage/Nursing Notes reviewed by Me Additional history obtained from chart Differentials:Cardiac ischemia, aortic dissection, pulmonary embolism, pneumothorax, pneumonia, pericarditis, myocarditis, esophageal rupture, GERD, cholecystitis, pancreatitis, musculoskeletal, as well as other pathologies. Vital Signs: reviewed and remarkable for no significant abnormalities Interventions: IV magnesium, aspirin Labs:Reviewed and remarkable for no significant abnormalities Imagin view chest x-ray no acute finding EKG:Per My Interpretation: Indication chest pain: Atrial fibrillation at 82 bpm with a QTC of 502 and a right bundle branch block. There is no STEMI. When compared to EKG of August 30, 2020 he is now in A. fib compared to a normal sinus rhythm with first-degree AV block noted previously. Previous QRS was 86 and has increased compared to that time. Cardiac/Tele Monitoring: Cardiac Monitoring: An Order was placed for continuous cardiac monitoring. The monitor shows a rate of 80with a atrial fibrillation rhythm. Consults:Carlos estreliltaist service Plan: Disposition:Hospitalization. Condition: Good History of Present Illness: 77-year-old gentleman arrives for evaluation of chest pain. Patient with a long complicated cardiac history including stents of both RCA and LAD several years ago. He states he quit smoking about 2 months ago and has been dealing with some cough and feeling short of breath since doing so. States he just does not feel his typical self and is feels washed out. He does take his daily breathing medications including an inhaled steroid. Last evening he was having a bowl of cereal around 2 AM when he developed crush ing/sharp substernal chest pain. There was no radiation of pain. There is no nausea, vomiting, syncope or other symptoms with it. He states he took nitroglycerin x2 and pain eventually resolved. He was concerned he may have had a repeat cardiac event and thus came in this morning. He states he had a mild frontal headache at 1 point during the night but it was fleeting and is gone now. He denies any current chest pain, shortness of breath, back pain, weakness, nausea, vomiting, abdominal pain, urinary/bowel symptoms, leg swelling, rashes or any other signs or symptoms. He took nitro prior to arrival with improvement. Nothing seemed to make the pain worse. No recent falls, trauma, injuries. ROS: See above HPI for pertinent positives & negatives. A total of 10 systems reviewed and were otherwise negative. Past Medical History:See Below Past Surgical History:See Below Family History:See Below Social History:See Below Home Medications:See Below Allergies:See Below Vitals:Blood Pressure: 139/90, Pulse 77, RR 16, T 36.8C, O2 97% on RA Physical Exam: GENERAL: Patient is anxious appearing and in minimal distress. EYES: No scleral icterus, unremarkable pupils. ENT: Mucous membranes moist, no nasal congestion. NECK: No masses appreciated, nomeningismus, trachea is midline. RESPIRATORY: No dyspnea. Clear to auscultation and equal bilaterally. No wheeze, no rhonchi. CARDIOVASCULAR: Irregular.No murmurs, rubs, gallops appreciated. GASTROINTESTINAL: Abdomen soft, non-tender, no peritonitis.Bowel sounds positive.No masses appreciated. BACK: No midline tenderness, no CVA tenderness EXTREMITIES: Normal motion all extremities, no cyanosis, no edema. NEUROLOGIC: Alert and oriented, no acute motor or sensory deficits, no focal weakness, cranial nerves grossly intact. SKIN: No rash, no jaundice, no diaphoresis. PSYCH: Appropriate GCS: 15 ED Course: Times/Reassessments: Patient stable throughout blood pressure and heart rate remain acceptable. He is agreeable to hospitalization for further management evaluation Emile Berumen MD Past Med/Surg History Medical History Anxiety Aortic aneurysm stable 3cm; pcp monitors Barretts esophagus Blood clotting disorder pt unable to verify Chronic anemia Chronic back pain Chronic kidney disease, stage 3 COPD (chronic obstructive pulmonary disease) inhalers and nebulizers daily Coronary artery disease Diverticular disease GERD (gastroesophageal reflux disease) Gout [place] filter in place Hearing deficit Hyperlipidemia Hypertension Idiopathic neuropathy Myocardial Infarction 2017--follows with Dr. Casanova Neuropathy Nocturnal hypoxemia On home oxygen therapy 2.5L N/C at HS Osteoarthritis Poor historian Prostate cancer sx Recurrent genital herpes simplex (Unknown) Sciatica Sleep apnea oxygen at night Temporomandibular joint disorder Surgical History History of arthroscopic knee surgery History of bilateral cataract extraction History of cardiac cath x5--last 2018 History of colonoscopy History of esophagogastroduodenoscopy (EGD) History of heart artery stent multiple--last 2018 2/2 to restenosis History of hernia repair epigastric History of left shoulder replacement History of lumbar surgery History of mandibular surgery tmj repair History of prostate biopsy malignant History of prostatectomy History of right inguinal hernia repair History of right shoulder replacement History of tooth extraction all teeth removed Status post correction of deviated nasal septum Status post total hip replacement, bilateral Family History Other Family history not known due to adoption Social History Smoking Status: Former smoker Tobacco Type: Cigarettes Years Smoked: 42; Second Hand Exposure: No; Hx Alcohol Use: Yes Alcohol type: beer Hx Substance Use: No Preferred Language: Palauan Communication Ability: Effective 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: No Beliefs That Will Affect Care: None marital status: Current Living Situation: Spouse Current Living Situation Comment: Lives with and son current occupational status: retired How many Children do You have: 4 Other Information That Helps Us Care for You: No Feels Safe at Home: Yes Safety Concerns: Feels Safe At This Time Assistive Devices: Cane, Oxygen - at Night and Walker Allergies Allergies Allergy/AdvReac Type Severity Reaction Status Date / Time benzocaine Allergy Severe SLOUGHING Verified 03/23/22 08:15 OF SKIN clindamycin Allergy Intermediate RASH Verified 03/23/22 08:15 cyanocobalamin (vitamin B12) Allergy Intermediate Rash Verified 03/23/22 08:15 clobetasol Allergy Mild ITCHING Verified 03/23/22 08:15 doxycycline Allergy Mild RASH Verified 03/23/22 08:15 Penicillins Allergy Mild HIVES Verified 03/23/22 08:15 phenethylamine Allergy Mild Itching Verified 03/23/22 08:15 povidone-iodine Allergy Mild Hives Verified 03/23/22 08:15 [From Betadine] soap [From Betadine] Allergy Mild Hives Verified 03/23/22 08:15 tea tree Allergy Mild ITCHING Verified 03/23/22 08:15 Home Meds Home Medications Medication Instructions Recorded Confirmed allopurinol 300 mg tablet 300 mg PO QAM 06/14/18 03/23/22 atorvastatin 80 mg tablet 80 mg PO QPM 06/14/18 03/23/22 cholecalciferol (vitamin D3) 50 2,000 unit PO 06/14/18 03/23/22 mcg (2,000 unit) capsule (Vitamin D3) docusate sodium 100 mg capsule 100 mg PO BID PRN 06/14/18 03/23/22 famotidine 20 mg tablet 20 mg PO [facility] 06/14/18 03/23/22 ferrous sulfate 325 mg (65 mg 325 mg PO 06/14/18 03/23/22 iron) tablet ipratropium 20 mcg-albuterol 100 1 puff INHALATION QID PRN 06/14/18 03/23/22 mcg/actuation mist for inhalation (Combivent Respimat) lorazepam 0.5 mg tablet 0.5 mg PO TID PRN 06/14/18 03/23/22 metoprolol succinate 25 mg 25 mg PO BID 06/14/18 03/23/22 tablet,extended release 24 hr nitroglycerin 0.4 mg sublingual 1 tab SUBLINGUAL UD PRN 06/14/18 03/23/22 tablet oxybutynin chloride 5 mg tablet 5 mg PO QAM 06/14/18 03/23/22 albuterol sulfate 2.5 mg INHALATION Q4 PRN 01/07/19 03/23/22 arformoterol 15 mcg/2 mL solution 15 mcg INHALATION BID 01/07/19 03/23/22 for nebulization (Brovana) clopidogrel 75 mg tablet (Plavix) 75 mg PO QAM 11/03/19 03/23/22 gabapentin 300 mg capsule 300 mg PO QAM 01/28/20 03/23/22 isosorbide mononitrate 30 mg 30 mg PO QAM 01/28/20 03/23/22 tablet,extended release 24 hr aspirin 81 mg tablet,delayed 81 mg PO QAM 09/18/20 03/23/22 release cyanocobalamin (vitamin B-12) 1,000 mcg SUBCUT MONTHLY 09/18/20 03/23/22 1,000 mcg/mL injection solution prednisone 10 mg tablet 10 mg PO UD PRN 09/18/20 03/23/22 tramadol 50 mg tablet 50 mg PO BID 09/18/20 03/23/22 valacyclovir 500 mg tablet 500 mg PO BID PRN 09/18/20 03/23/22 levothyroxine 75 mcg tablet 75 mcg PO QAM 09/09/21 03/23/22 (Synthroid) magnesium oxide 400 mg (241.3 mg 400 mg PO HS 09/09/21 03/23/22 magnesium) tablet multivitamin 1 tab PO HS 09/09/21 03/23/22 budesonide 0.5 mg/2 mL suspension 0.5 mg INHALATION BID 03/23/22 03/23/22 for nebulization (Pulmicort) zinc 50 mg tablet 50 mg PO HS 03/23/22 03/23/22 Previous Rx's Medication Instructions Recorded pantoprazole 40 mg tablet,delayed 40 mg PO BID #60 tab 11/03/19 release albuterol sulfate 90 mcg/actuation 2 puffs INH Q6H PRN #18 gm 12/02/19 aerosol inhaler Results & Data (ED) Vital Signs Vital Signs - 24 hr 03/23/22 07:15 Temperature 36.8 C Temperature Source Oral Pulse Rate 75 Pulse Rate [Apical] 77 Respiratory Rate 16 Blood Pressure 139/90 Blood Pressure [Left Arm] 139/90 Blood Pressure Mean 106 Blood Pressure Mean [Left Arm] 106 Pulse Oximetry 97 Oxygen Delivery Method Room Air Sepsis Recent Fever Within 48 Hours No Sepsis New/Unexplained Change in Mental Status No Sepsis Action Taken by Nursing No Action Required Laboratory Data Result diagrams: 03/25/22 06:24 03/25/22 06:24 Lab Results 03/23/22 03/23/22 03/23/22 Range/Units 07:22 07:22 07:22 WBC 6.54 (4.8-10.8) K/uL RBC 3.41 L (4.7-6.1) M/uL Hgb 11.7 L (14.0-18.0) g/dL Hct 35.1 L (42-52) % MCV 102.9 H (80-100) fL MCH 34.3 H (25-34) pg MCHC 33.3 (32-36) g/dL RDW Std Deviation 53.0 H (36.4-46.3) fL RDW Coeff of Zoë 14.1 (11.5-14.5) % Plt Count 211 (130-400) K/uL MPV 10.1 (7.4-10.4) fL Immature Gran % (Auto) 0.2 % Neut % (Auto) 64.9 % Lymph % (Auto) 20.6 % [place] % (Auto) 10.2 % Eos % (Auto) 3.8 % Baso % (Auto) 0.3 % Neut # (Auto) 4.24 (1.4-6.5) K/uL Lymph # (Auto) 1.35 (1.2-3.4) K/uL [place] # (Auto) 0.67 H (0.11-0.59) K/uL Eos # (Auto) 0.25 (0-0.5) K/uL Baso # (Auto) 0.02 (0-0.2) K/uL Immature Gran # (Auto) 0.01 (0.00-0.02) K/uL PT 11.7 (9.0-12.0) Seconds INR 1.1 (0.9-1.1) APTT 30.6 (21.0-31.0) Seconds PTT Ratio 1.1 Sodium (136-145) mmol/L Potassium (3.5-5.1) mmol/L Chloride (98-107) mmol/L Carbon Dioxide (21-32) mmol/L Anion Gap (3-11) BUN (6-23) mg/dl Creatinine (0.6-1.4) mg/dl Est Cr Clr Drug Dosing ml/min Est GFR ( Amer) ml/min Est GFR (Non-Af Amer) ml/min BUN/Creatinine Ratio (10-20) Glucose (70-99(Fasting)) mg/dl Calcium (8.5-10.1) mg/dl Magnesium (1.7-2.4) mg/dl Troponin I High Sens (0-20) pg/ml TSH 17.308 H (0.300-4.500) uIu/ml SARS-CoV-2, RNA, NAAT (NEGATIVE) 03/23/22 03/23/22 Range/Units 07:22 07:39 WBC (4.8-10.8) K/uL RBC (4.7-6.1) M/uL Hgb (14.0-18.0) g/dL Hct (42-52) % MCV (80-100) fL MCH (25-34) pg MCHC (32-36) g/dL RDW Std Deviation (36.4-46.3) fL RDW Coeff of Zoë (11.5-14.5) % Plt Count (130-400) K/uL MPV (7.4-10.4) fL Immature Gran % (Auto) % Neut % (Auto) % Lymph % (Auto) % [place] % (Auto) % Eos % (Auto) % Baso % (Auto) % Neut # (Auto) (1.4-6.5) K/uL Lymph # (Auto) (1.2-3.4) K/uL [place] # (Auto) (0.11-0.59) K/uL Eos # (Auto) (0-0.5) K/uL Baso # (Auto) (0-0.2) K/uL Immature Gran # (Auto) (0.00-0.02) K/uL PT (9.0-12.0) Seconds INR (0.9-1.1) APTT (21.0-31.0) Seconds PTT Ratio Sodium 136 (136-145) mmol/L Potassium 3.7 (3.5-5.1) mmol/L Chloride 105 (98-107) mmol/L Carbon Dioxide 21 (21-32) mmol/L Anion Gap 10 (3-11) BUN 23 (6-23) mg/dl Creatinine 2.13 H (0.6-1.4) mg/dl Est Cr Clr Drug Dosing 30.9 ml/min Est GFR ( Amer) 33.6 ml/min Est GFR (Non-Af Amer) 29.0 ml/min BUN/Creatinine Ratio 10.8 (10-20) Glucose 94 (70-99(Fasting)) mg/dl Calcium 9.1 (8.5-10.1) mg/dl Magnesium 1.3 L (1.7-2.4) mg/dl Troponin I High Sens 18.5 (0-20) pg/ml TSH (0.300-4.500) uIu/ml SARS-CoV-2, RNA, NAAT NEGATIVE (NEGATIVE) Administered Medications Albuterol (Albuterol 0.083% Nebu Soln 3 Ml Vial) 2.5 mg INH Q4R PRN; Protocol PRN Reason: Shortness Of Breath Stop: 04/22/22 13:51 Last Admin: 03/24/22 05:36 Dose: 2.5 mg Documented by: [id number] Allopurinol (Allopurinol 300 Mg Tab) [facility] [place] Stop: 04/23/22 08:59 Last Admin: 03/24/22 08:24 Dose: 300 mg Documented by: [id number] Aspirin (Aspirin 81 Mg Ectab) 81 mg PO QAM [facility] Stop: 04/23/22 08:59 Last Admin: 03/24/22 08:23 Dose: 81 mg Documented by: [id number] Atorvastatin Calcium (Atorvastatin 40 Mg Tab) 80 mg PO QPM [facility]1983 Stop: 04/22/22 20:59 Last Admin: 03/24/22 21:09 Dose: 80 mg Documented by: [id number] Admin: 03/23/22 21:20 Dose: 80 mg Documented by: [id number] Budesonide (Budesonide 0.5 Mg/2 Ml Vial (Pulmicort)) 0.5 mg INH BIDR [facility]1983 Stop: 04/22/22 18:59 Last Admin: 03/25/22 07:18 Dose: 0.5 mg Documented by: [id number] Admin: 03/24/22 19:47 Dose: 0.5 mg Documented by: [id number] Admin: 03/24/22 07:06 Dose: 0.5 mg Documented by: [id number] Admin: 03/23/22 20:42 Dose: 0.5 mg Documented by: [id number] Clopidogrel Bisulfate (Clopidogrel Bisulfate 75 Mg Tab) 75 mg PO [facility] Stop: 04/23/22 08:59 Last Admin: 03/24/22 08:23 Dose: 75 mg Documented by: [id number] Famotidine (Famotidine 20 Mg Tab) 20 mg PO [facility] Stop: 04/23/22 08:59 Last Admin: 03/24/22 08:24 Dose: 20 mg Documented by: [id number] Ferrous Sulfate (Ferrous Sulfate 325 Mg Tab) 325 mg PO [facility] Stop: 04/22/22 20:59 Last Admin: 03/24/22 21:10 Dose: 325 mg Documented by: [id number] Admin: 03/23/22 21:21 Dose: 325 mg Documented by: [id number] Formoterol Fumarate (Formoterol 20 Mcg/2 Ml Vial) 20 mcg INH BIDR [facility] Stop: 04/22/22 18:59 Last Admin: 03/25/22 07:18 Dose: 20 mcg Documented by: [id number] Admin: 03/24/22 19:47 Dose: 20 mcg Documented by: [id number] Admin: 03/24/22 07:06 Dose: 20 mcg Documented by: [id number] Admin: 03/23/22 20:42 Dose: 20 mcg Documented by: [id number] Isosorbide Mononitrate (Isosorbide [place] Extended Rel 30 Mg Tabcr) 30 mg PO [facility] Stop: 04/23/22 08:59 Last Admin: 03/24/22 08:24 Dose: 30 mg Documented by: [id number] Levothyroxine Sodium (Levothyroxine Sodium 75 Mcg Tablet) 75 mcg PO [facility] Stop: 04/23/22 08:59 Last Admin: 03/24/22 08:24 Dose: 75 mcg Documented by: [id number] Magnesium Oxide (Magnesium Oxide 400 Mg Tab) 400 mg PO [facility] Stop: 04/22/22 20:59 Last Admin: 03/24/22 21:10 Dose: 400 mg Documented by: [id number] Admin: 03/23/22 21:20 Dose: 400 mg Documented by: [id number] Metoprolol Succinate (Metoprolol Succ 25mg Ext Rel Tab) 25 mg PO BID [facility]1983 Stop: 04/22/22 20:59 Last Admin: 03/24/22 21:11 Dose: Not Given Documented by: [id number] Admin: 03/24/22 08:23 Dose: 25 mg Documented by: [id number] Admin: 03/23/22 21:22 Dose: 25 mg Documented by: [id number] Multivitamins (Multivitamin Tab) 1 tab PO HS [facility] Stop: 04/22/22 20:59 Last Admin: 03/24/22 21:09 Dose: 1 tab Documented by: [id number] Admin: 03/23/22 21:21 Dose: 1 tab Documented by: [id number] Oxybutynin Chloride (Oxybutynin Chloride 5 Mg Tab) 5 mg PO QAM [facility] Stop: 04/23/22 08:59 Last Admin: 03/24/22 08:24 Dose: 5 mg Documented by: [id number] Pantoprazole Sodium (Pantoprazole 40 Mg Tab) 40 mg PO BID [facility] Stop: 04/22/22 20:59 Last Admin: 03/24/22 21:10 Dose: 40 mg Documented by: [id number] Admin: 03/24/22 08:23 Dose: 40 mg Documented by: [id number] Admin: 03/23/22 21:21 Dose: 40 mg Documented by: [id number] Tramadol HCl (Tramadol Hcl 50 Mg Tablet) 50 mg PO BID [facility] Stop: 04/22/22 20:59 Last Admin: 03/24/22 21:09 Dose: 50 mg Documented by: [id number] Admin: 03/24/22 08:23 Dose: 50 mg Documented by: [id number] Admin: 03/23/22 21:24 Dose: 50 mg Documented by: [id number] Vitamin D (Cholecalciferol 1,000 Units 25 Mcg Tab) 2,000 units PO HS MANDY Stop: 04/22/22 20:59 Last Admin: 03/24/22 21:10 Dose: 2,000 units Documented by: [id number] Admin: 03/23/22 21:21 Dose: 2,000 units Documented by: [id number] Zinc Sulfate (Zinc Sulfate 220 Mg Capsule) 220 mg PO HS MANDY Stop: 04/22/22 20:59 Last Admin: 03/24/22 21:10 Dose: 220 mg Documented by: [id number] Admin: 03/23/22 21:20 Dose: 220 mg Documented by: [id number] Discontinued Medications Amlodipine Besylate (Amlodipine Besylate 5 Mg Tab) 2.5 mg PO QAM [facility] Stop: 04/23/22 04:49 Last Admin: 03/24/22 05:45 Dose: 2.5 mg Documented by: [id number] Amlodipine Besylate (Amlodipine Besylate 5 Mg Tab) 5 mg PO NOW ONE Stop: 03/24/22 10:10 Last Admin: 03/24/22 11:20 Dose: 5 mg Documented by: [id number] Aspirin (Aspirin 81 Mg Chew) 324 mg PO NOW STA Stop: 03/23/22 07:48 Last Admin: 03/23/22 07:55 Dose: 324 mg Documented by: [id number] Magnesium Sulfate/Dextrose (Magnesium Sulfate / D5w) 1 gm in 100 mls @ 100 mls/hr IV NOW STA Stop: 03/23/22 09:23 Last Infusion: 03/23/22 09:38 Dose: 0 mls/hr Documented by: [id number] Admin: 03/23/22 08:36 Dose: 100 mls/hr Documented by: [id number] Lactated Ringer's (Lr) 1,000 mls @ 80 mls/hr IV .[id number] MANDY Stop: 04/23/22 08:59 Last Infusion: 03/24/22 21:06 Dose: 0 mls/hr Documented by: [id number] Admin: 03/24/22 09:14 Dose: 80 mls/hr Documented by: [id number] Imaging Data Radiologist's Impression: Chest X-Ray 03/23/22 07:22 XR chest 1V portable CLINICAL HISTORY: chest pain TECHNIQUE: Single frontal radiograph of the chest was obtained. Comparison: Comparison is made to chest radiograph 08/30/2020 FINDINGS: Bilateral shoulder arthroplasties are seen. The aorta is tortuous. The remainder of the cardiomediastinal silhouette is unremarkable. The lungs are clear. No evidence of pleural effusion or pneumothorax. IMPRESSION: No acute chest disease. ACT 112: Negative or not required by law. Electronically signed by: Vega Olson M.D. 03/23/2022 7:49 AM Discharge Plan Visit Data Chief Complaint: Chest Pain Stated Complaint: CHEST PAIN ED Provider: Emile Berumen ED Midlevel Provider: Sandra De Oliveira Discharge Problem: Left-sided chest pain, New onset atrial fibrillation, Acute electrocardiogram changes, Hypomagnesemia Patient Disposition: Admitted As Inpatient Discharge Instructions Interventions: ED Discharge Assessment Last Done: 03/23/22 11:09
[2022-03-23 07:37] LABS: Basophils # (auto) 0.02 K/uL (0-0.2); Basophils % (auto) 0.3 %; Eosinophils # (auto) 0.25 K/uL (0-0.5); Eosinophils % (auto) 3.8 %; Hematocrit (blood only) 35.1 % (42-52); Hemoglobin 11.7 g/dL (14.0-18.0); Immature Granulocytes # (auto) 0.01 K/uL (0.00-0.02); Immature Granulocytes % (auto) 0.2 %; Lymphocytes # (auto) 1.35 K/uL (1.2-3.4); Lymphocytes % (auto) 20.6 %; Mean Corpuscular Hemoglobin 34.3 pg (25-34); Mean Corpuscular Hgb Conc 33.3 g/dL (32-36); Mean Corpuscular Volume 102.9 fL (80-100); Mean Platelet Volume 10.1 fL (7.4-10.4); Monocytes # (auto) 0.67 K/uL (0.11-0.59); Monocytes % (auto) 10.2 %; Neutrophils # (auto) 4.24 K/uL (1.4-6.5); Neutrophils % (auto) 64.9 %; Platelet Count 211 K/uL (130-400); RDW Coefficient of Variation 14.1 % (11.5-14.5); Red Blood Count 3.41 M/uL (4.7-6.1); White Blood Count 6.54 K/uL (4.8-10.8)
--- NOTE | 2022-03-23 07:39 | Emergency Department Note ---
General (ED) Blank Date of Service March 23, 2022 ED Visit Note I personally saw, interviewed, and examined the patient. Patient's case was discussed with Dr. Berumen, ED attending, and I assisted with MDM. Please see attending documentation for full details. Resident Activity Tracking Resident Involvement: Resident Care Provided Care Provided: Adult ED
[2022-03-23] MEDS ORDERED: ASPIRIN 81 MG CHEW PO STA (07:47)
--- NOTE | 2022-03-23 07:52 | XRay Report ---
XR chest 1V portable CLINICAL HISTORY: chest pain TECHNIQUE: Single frontal radiograph of the chest was obtained. Comparison: Comparison is made to chest radiograph 08/30/2020 FINDINGS: Bilateral shoulder arthroplasties are seen. The aorta is tortuous. The remainder of the cardiomediast inal silhouette is unremarkable. The lungs are clear. No evidence of pleural effusion or pneumothorax . IMPRESSION: No acute chest disease. ACT 112: Negative or not required by law. Electronically signed by: Vega Olson M.D. 03/23/2022 7:49 AM
[2022-03-23 08:02] LABS: BUN Creatinine Ratio 10.8 (10-20); Calcium 9.1 mg/dl (8.5-10.1); Creatinine Clr Calc Pharmacy 30.9 ml/min; Est GFR (African American) 33.6 ml/min; Magnesium 1.3 mg/dl (1.7-2.4); Potassium 3.7 mmol/L (3.5-5.1)
[2022-03-23 08:06] LABS: INR 1.1 (0.9-1.1); Partial Thromboplastin Ratio 1.1; Partial Thromboplastin Time 30.6 Seconds (21.0-31.0); Prothrombin Time 11.7 Seconds (9.0-12.0)
[2022-03-23 08:09] LABS: Troponin I High Sensitivity 18.5 pg/ml (0-20)
[2022-03-23] MEDS ORDERED: MAGNESIUM SULFATE / D5W 1 GM/100 ML BAG IV STA (08:24)
--- NOTE | 2022-03-23 08:56 | History & Physical Report ---
Date of Service March 23, 2022 Assessment & Plan (1) Chest pain: Plan: - Admit to tele -currently chest pain-free - Trend cardiac biomarkers, initial set was negative - EKG reviewed as above showing changes compared to previously - shows afib, RBBB, prolonged QTc - Check 2 D echo today- Last echo done 01/28/20 was reviewed: Showing 50 to 5 to 60% EF, moderate concentric LVH, no regional WMA, mild aortic regurg, mild aortic root dilation - If negative enzymes can consider a stress test tomorrow morning. - Consult cardiology - follows with Dr. Casanova as outpatient - PT/OT consulted - TSH elevated at 17, will check a free T4, patient reports that he has not been taking the levothyroxine at all, encouraged to resume this and he is agreeable, will need repeat labs within 4 to 6 weeks - Magnesium low at 1.3, replacing with 1 g IV now in the ER, follow a.m. labs - Check A1c and lipids since he is 8 hours fasting with the second troponin set (2) CAD (coronary artery disease): Plan: - s/p rotational arthrectomy and stent placement to the RCA May 2017, staged PCI to the LAD June 2017 complicated by IV pole following on his right shoulder and subsequent shoulder pain, recurrent chest pain with in-stent restenoses of his RCA April 2019 and subsequent PCI - Con asa and plavix - Pt is not taking statin - encourage to do so - will need education on this prior to dc - Continue other home medications (3) Hypertension: Plan: - Cont metoprolol succinate 25 mg BID, isosorbide monoitrate 30 mg daily (4) Hypomagnesemia: Plan: - Replacing as above. follow am labs (5) Elevated TSH: (6) Hypothyroid: Plan: - TSH elevated at 17, will check a free T4, patient reports that he has not been taking the levothyroxine at all, encouraged to resume this and he is agreeable, will need repeat labs within 4 to 6 weeks (7) COPD (chronic obstructive pulmonary disease): Plan: - Quit smoking 4 months ago, can continue inhalers daily, currently not on prednisone taper, (this is a prescription rescue pack per his PCP) -Does not wear supplemental O2 at baseline -Daily sputum production ? needs for PFTs and bronch? consider pulmonology referral DVT ppx: - teds, scds, Plavix and aspirin CODE: Full code Dispo: From home, likely to remain in the hospital x 1-2 days Plan: Attending Addendum: care coordinated with MAVIS Marcano please refer to her notes for full details, I agree with her notes patient seen and examined, records reviewed by myself as well on exam, patient seen resting in bed, not in distress Denies active chest pain, shortness of breath, palpitations, dizziness Reports chest congestion, productive cough, no fevers or chills no other symptoms VS noted and reviewed oriented x 3, not in distress, speaks in sentences with no effort nor accessory muscle use normal rate, regular rhythm, no murmurs Diminished but clear breath sounds bilaterally, no wheezing noted non distended, soft, nontender no bipedal edema, erythema, warmth no neuro deficits All labs noted and reviewed ASSESSMENT AND PLAN Chest pain, history of CAD, CHF Opponents x2 negative, EKG no signs of acute ischemia Continue usual cardiac medications Sr. Social Media & Mobile Manager consulted COPD Possible acute bronchitis Start doxycycline, nebs every 6 hours Continue usual Pulmicort, Brovana Monitor closely If without improvement, start prednisone other diagnoses and plan of care as per MAVIS Marcano. Pedro Luis Crowell MD History of Present Illness Chief Complaint: chest pain Primary Care Provider: Jacob Jones MD This is a 77 yo M with PMhx of Coronary artery disease s/p rotational arthrectomy and stent placement to the RCA May 2017, staged PCI to the LAD June 2017 complicated by IV pole following on his right shoulder and subsequent shoulder pain, recurrent chest pain with in-stent restenoses of his RCA April 2019 and subsequent PCI, HTN, hx of tobacco use where he quit 4 months ago, COPD, CKD, GERD, polyneuropathy who presents to the ER with complaints of chest pain. Patient notes that he awoke last night around 2 AM to get up and eat a snack, and then developed central heavy/pressure like chest pain which did not radiate and lasted 20 minutes, he then took 1 nitroglycerine tablet without pain relief, so took a second and chest pain resolved. He does not currently have c hest pain. Recently he has been feeling very fatigued, with little energy to participate in many ADLs. Last summer he was able to garden without any difficulty and this year he has been unable to plan anything. He reports his has noticed this and is concerned that he is unable to do much at home. He quit smoking 4 months ago and initially feels that his breathing was improved for about 1 month, however since then continues to have sputum production which is thick and clear throughout the day. During the episode of chest pain early this morning he felt that he needed to cough to release pressure however could not. He is not very physically active secondary to fatigue and shortness of breath. He also complains of lower back pain which is worsening recently, and limits his ability to get in and out of bed, therefore has been sleeping on the sofa in living room. Patient follows with Dr. Casanova with cardiology as an outpatient and saw him at the end of January. Patient has been using his inhalers as instructed, aspirin and Plavix and blood pressure medications. He reports not taking levothyroxine or magnesium, or statin therapy. He is also not using gabapentin as this makes his fatigue worse and feels more sleepy. On admission his thyroid is noted to be elevated with a TSH of 17, magnesium is low at 1.3 and being replaced with 1 g, and EKG shows changes Allergies Allergy/AdvReac Type Severity Reaction Status Date / Time benzocaine Allergy Severe SLOUGHING Verified 03/23/22 08:15 OF SKIN clindamycin Allergy Intermediate RASH Verified 03/23/22 08:15 cyanocobalamin (vitamin B12) Allergy Intermediate Rash Verified 03/23/22 08:15 clobetasol Allergy Mild ITCHING Verified 03/23/22 08:15 doxycycline Allergy Mild RASH Verified 03/23/22 08:15 Penicillins Allergy Mild HIVES Verified 03/23/22 08:15 phenethylamine Allergy Mild Itching Verified 03/23/22 08:15 povidone-iodine Allergy Mild Hives Verified 03/23/22 08:15 [From Betadine] soap [From Betadine] Allergy Mild Hives Verified 03/23/22 08:15 tea tree Allergy Mild ITCHING Verified 03/23/22 08:15 Home Medications Medication Instructions Recorded Confirmed Type allopurinol 300 mg tablet 300 mg PO QAM 06/14/18 03/23/22 History atorvastatin 80 mg tablet 80 mg PO QPM 06/14/18 03/23/22 History cholecalciferol (vitamin D3) 50 2,000 unit PO HS 06/14/18 03/23/22 History mcg (2,000 unit) capsule (Vitamin D3) docusate sodium 100 mg capsule 100 mg PO BID PRN 06/14/18 03/23/22 History famotidine 20 mg tablet 20 mg PO QAM 06/14/18 03/23/22 History ferrous sulfate 325 mg (65 mg 325 mg PO HS 06/14/18 03/23/22 History iron) tablet ipratropium 20 mcg-albuterol 100 1 puff INHALATION QID PRN 06/14/18 03/23/22 History mcg/actuation mist for inhalation (Combivent Respimat) lorazepam 0.5 mg tablet 0.5 mg PO TID PRN 06/14/18 03/23/22 History metoprolol succinate 25 mg 25 mg PO BID 06/14/18 03/23/22 History tablet,extended release 24 hr nitroglycerin 0.4 mg sublingual 1 tab SUBLINGUAL UD PRN 06/14/18 03/23/22 History tablet oxybutynin chloride 5 mg tablet 5 mg PO QAM 06/14/18 03/23/22 History albuterol sulfate 2.5 mg INHALATION Q4 PRN 01/07/19 03/23/22 History arformoterol 15 mcg/2 mL solution 15 mcg INHALATION BID 01/07/19 03/23/22 History for nebulization (Brovana) clopidogrel 75 mg tablet (Plavix) 75 mg PO QAM 11/03/19 03/23/22 History pantoprazole 40 mg tablet,delayed 40 mg PO BID #60 tab 11/03/19 03/23/22 Rx release albuterol sulfate 90 mcg/actuation 2 puffs INH Q6H PRN #18 gm 12/02/19 03/23/22 Rx aerosol inhaler gabapentin 300 mg capsule 300 mg PO QAM 01/28/20 03/23/22 History isosorbide mononitrate 30 mg 30 mg PO QAM 01/28/20 03/23/22 History tablet,extended release 24 hr aspirin 81 mg tablet,delayed 81 mg PO QAM 09/18/20 03/23/22 History release cyanocobalamin (vitamin B-12) 1,000 mcg SUBCUT MONTHLY 09/18/20 03/23/22 History 1,000 mcg/mL injection solution prednisone 10 mg tablet 10 mg PO UD PRN 09/18/20 03/23/22 History tramadol 50 mg tablet 50 mg PO BID 09/18/20 03/23/22 History valacyclovir 500 mg tablet 500 mg PO BID PRN 09/18/20 03/23/22 History levothyroxine 75 mcg tablet 75 mcg PO QAM 09/09/21 03/23/22 History (Synthroid) magnesium oxide 400 mg (241.3 mg 400 mg PO HS 09/09/21 03/23/22 History magnesium) tablet multivitamin 1 tab PO HS 09/09/21 03/23/22 History budesonide 0.5 mg/2 mL suspension 0.5 mg INHALATION BID 03/23/22 03/23/22 History for nebulization (Pulmicort) zinc 50 mg tablet 50 mg PO HS 03/23/22 03/23/22 History Past Med/Surg History Medical History Anxiety Aortic aneurysm stable 3cm; pcp monitors Barretts esophagus Blood clotting disorder pt unable to verify Chronic anemia Chronic back pain Chronic kidney disease, stage 3 COPD (chronic obstructive pulmonary disease) inhalers and nebulizers daily Coronary artery disease Diverticular disease GERD (gastroesophageal reflux disease) Gout [place] filter in place Hearing deficit Hyperlipidemia Hypertension Idiopathic neuropathy Myocardial Infarction 2016--follows with Dr. Casanova Neuropathy Nocturnal hypoxemia On home oxygen therapy 2.5L N/C at HS Osteoarthritis Poor historian Prostate cancer sx Recurrent genital herpes simplex (Unknown) Sciatica Sleep apnea oxygen at night Temporomandibular joint disorder Surgical History History of arthroscopic knee surgery History of bilateral cataract extraction History of cardiac cath x5--last 2018 History of colonoscopy History of esophagogastroduodenoscopy (EGD) History of heart artery stent multiple--last 2018 2/2 to restenosis History of hernia repair epigastric History of left shoulder replacement History of lumbar surgery History of mandibular surgery tmj repair History of prostate biopsy malignant History of prostatectomy History of right inguinal hernia repair History of right shoulder replacement History of tooth extraction all teeth removed Status post correction of deviated nasal septum Status post total hip replacement, bilateral Family History Other Family history not known due to adoption Social History Smoking Status: Former smoker Tobacco Type: Cigarettes Years Smoked: 42; Second Hand Exposure: No; Hx Alcohol Use: Yes Alcohol type: beer Hx Substance Use: No Preferred Language: [place] Communication Ability: Effective Dirt Contractor Required: No Beliefs That Will Affect Care: None marital status: Current Living Situation: Spouse Current Living Situation Comment: Lives with and son current occupational status: retired How many Children do You have: 4 Other Information That Helps Us Care for You: No Feels Safe at Home: Yes Safety Concerns: Feels Safe At This Time Assistive Devices: Cane, Oxygen - at Night and Walker Review of Systems Review of Systems: Constitutional: No fever, sweats or chills Eyes: No diplopia, no worsening or blurred vision ENT: normal hearing, no trouble swallowing Respiratory: chronic cough with white clear sputum, + dyspnea at rest and on exertion Cardiovascular: As per HPI, currently No chest pain, tightness or palpitations Abdomen: No pain, nausea, vomiting, diarrhea or constipation Musculoskeletal: No joint pain, calf pain, swelling Neurologic: No weakness, numbness/tingling, or balance problems Psychiatric: No anxiety or depression Skin: No rash or itch Physical Exam Physical Exam: General: awake, alert, no apparent distress Head: Normocephalic, atraumatic ENT: PERRL, EOMI, no pharyngeal exudate, mucous membranes moist Chest: Clear to auscultation, on room air, no adventitious breath sounds Cardiac: Regular rate and rhythm, few PACs, no reproducible chest pain with palpation, no murmur, no JVD, normal peripheral pulses, good capillary refill Abdominal: NABS x 4 quadrants, soft, nondistended, nontender to palpation, no rebound or guarding Extremities: Normal inspection, no peripheral edema or erythema, calfs nontender to palpation Psych: Normal mood and affect Neuro: AAO x 3, strength intact bilaterally and rated 5/5, no motor deficits, speech is clear, no peripheral sensory deficits Results & Data Results & Data ([facility]) Vital Signs (Past 12 Hours) Vital Signs Temp Pulse Pulse Resp BP BP Pulse Ox 03/23/22 08:39 72 16 142/98 H 94 03/23/22 07:15 36.8 C 75 77 16 139/90 139/90 97 Laboratory Results 03/23/22 03/23/22 03/23/22 07:39 07:22 07:22 WBC 6.54 RBC 3.41 L Hgb 11.7 L Hct 35.1 L MCV 102.9 H MCH 34.3 H MCHC 33.3 RDW Std Deviation 53.0 H RDW Coeff of Zoë 14.1 Plt Count 211 MPV 10.1 Immature Gran % (Auto) 0.2 Neut % (Auto) 64.9 Lymph % (Auto) 20.6 [place] % (Auto) 10.2 Eos % (Auto) 3.8 Baso % (Auto) 0.3 Neut # (Auto) 4.24 Lymph # (Auto) 1.35 [place] # (Auto) 0.67 H Eos # (Auto) 0.25 Baso # (Auto) 0.02 Immature Gran # (Auto) 0.01 PT INR APTT PTT Ratio Sodium 136 Potassium 3.7 Chloride 105 Carbon Dioxide 21 Anion Gap 10 BUN 23 Creatinine 2.13 H Est Cr Clr Drug Dosing 30.9 Est GFR ( Amer) 33.6 Est GFR (Non-Af Amer) 29.0 BUN/Creatinine Ratio 10.8 Glucose 94 Calcium 9.1 Magnesium 1.3 L Troponin I High Sens 18.5 TSH SARS-CoV-2, RNA, NAAT NEGATIVE 03/23/22 03/23/22 07:22 07:22 WBC RBC Hgb Hct MCV MCH MCHC RDW Std Deviation RDW Coeff of Zoë Plt Count MPV Immature Gran % (Auto) Neut % (Auto) Lymph % (Auto) [place] % (Auto) Eos % (Auto) Baso % (Auto) Neut # (Auto) Lymph # (Auto) [place] # (Auto) Eos # (Auto) Baso # (Auto) Immature Gran # (Auto) PT 11.7 INR 1.1 APTT 30.6 PTT Ratio 1.1 Sodium Potassium Chloride Carbon Dioxide Anion Gap BUN Creatinine Est Cr Clr Drug Dosing Est GFR ( Amer) Est GFR (Non-Af Amer) BUN/Creatinine Ratio Glucose Calcium Magnesium Troponin I High Sens TSH 17.308 H SARS-CoV-2, RNA, NAAT Diagnostic Findings Chest X-Ray 03/23/22 07:22 XR chest 1V portable CLINICAL HISTORY: chest pain TECHNIQUE: Single frontal radiograph of the chest was obtained. Comparison: Comparison is made to chest radiograph 08/30/2020 FINDINGS: Bilateral shoulder arthroplasties are seen. The aorta is tortuous. The remainder of the cardiomediastinal silhouette is unremarkable. The lungs are clear. No evidence of pleural effusion or pneumothorax. IMPRESSION: No acute chest disease. ACT 112: Negative or not required by law. Electronically signed by: Vega Olson M.D. 03/23/2022 7:49 AM Code Status & VTE Plan Code Status Full code - discussed with the patient at bedside (1) Hypertension Hypertension type: unspecified Qualified Code(s): I10 - Essential (primary) hypertension
[2022-03-23] MEDS ORDERED: ONDANSETRON INJ 2 MG/ML 2 ML VIAL IV PRN (11:06)
[2022-03-23] MEDS ORDERED: ACETAMINOPHEN 325 MG TAB PO PRN (11:06)
--- NOTE | 2022-03-23 12:36 | Electrocardiogram Report ---
Test Reason : Blood Pressure : / mmHG Vent. Rate : 082 BPM Atrial Rate : 068 BPM P-R Int : 000 ms QRS Dur : 132 ms QT Int : 430 ms P-R-T Axes : 000 -27 036 degrees QTc Int : 502 ms Poor data quality, interpretation may be adversely affected Normal sinus rhythm with 1st degree A-V block with frequent Premature atrial complexes Right bundle branch block Abnormal ECG When compared with ECG of 30-AUG-2020 16:08, Right bundle branch block is now Present Confirmed by Boaz Dunn ([id number]) on 03/23/2022 12:36:13 PM Referred By: REFERRED SELF Confirmed By:Boaz Dunn
[2022-03-23] MEDS ORDERED: ALBUTEROL 0.083% NEBU SOLN 3 ML VIAL INH PRN (13:52)
[2022-03-23] MEDS ORDERED: ALBUTEROL HFA 8 GM INHALER INH PRN (13:52)
[2022-03-23] MEDS ORDERED: NITROGLYCERIN SL 0.4 MG/TAB TAB SL PRN (13:52)
[2022-03-23] MEDS ORDERED: DOCUSATE SODIUM 100 MG CAP PO PRN (13:52)
[2022-03-23] MEDS ORDERED: XOPENEX/ATROVENT 1.25mg/0.5MG NEB COMBO NEB SCH (14:35)
[2022-03-23] MEDS ORDERED: LEVALBUTEROL 1.25MG/0.5ML NEB INH SCH (14:45)
[2022-03-23] MEDS ORDERED: IPRATROPIUM BROMIDE NEB SOLN 0.02% 2.5 ML VIAL INH SCH (14:45)
[2022-03-23] MEDS ORDERED: ALBUT/IPRATROP 3MG/0.5MG NEB 3 ML VIAL INH PRN (15:00)
[2022-03-23] MEDS ORDERED: IPRATROPIUM BROMIDE HFA INHALER INH PRN (15:06)
--- NOTE | 2022-03-23 15:10 | Cardiology Consultation ---
Date of Consultation March 23, 2022 Assessment & Plan (1) Chest pain: (2) Elevated TSH: (3) Chronic kidney disease: (4) Hypertension: (5) CAD (coronary artery disease): (6) Nocturnal hypoxemia: (7) Chronic anemia: (8) [place] filter in place: (9) Afib: Atypical chest pain in the setting of cough after quitting smoking suspect musculoskeletal trend trop Repeat echocardiogram. History of Present Illness Reason for Consultation: chest pain Requesting Physician: GILDA Attending Physician: Pedro Luis Crowell MD History of Present Illness PAST MEDICAL HISTORY: 1. Coronary artery disease status post rotational arthrectomy and stent placement to the RCA May 2017 2. Staged PCI to the LAD June 2017 complicated by IV pole following on his right shoulder and subsequent shoulder pain 3. Recurrent chest pain with InStent restenoses of his RCA April 2019 and subsequent PCI 4. Shoulder pain surgery delayed by dual anti-platelet therapy 5. Chronic kidney disease 6. History of tobacco abuse with resultant COPD 7. GERD next number history of Sepulveda's esophagitis 8. Hypertension 9. Polyneuropathy. 10. Memory loss Allergies Allergy/AdvReac Type Severity Reaction Status Date / Time benzocaine Allergy Severe SLOUGHING Verified 03/23/22 08:15 OF SKIN clindamycin Allergy Intermediate RASH Verified 03/23/22 08:15 cyanocobalamin (vitamin B12) Allergy Intermediate Rash Verified 03/23/22 08:15 clobetasol Allergy Mild ITCHING Verified 03/23/22 08:15 doxycycline Allergy Mild RASH Verified 03/23/22 08:15 Penicillins Allergy Mild HIVES Verified 03/23/22 08:15 phenethylamine Allergy Mild Itching Verified 03/23/22 08:15 povidone-iodine Allergy Mild Hives Verified 03/23/22 08:15 [From Betadine] soap [From Betadine] Allergy Mild Hives Verified 03/23/22 08:15 tea tree Allergy Mild ITCHING Verified 03/23/22 08:15 Home Medications Medication Instructions Recorded Confirmed Type allopurinol 300 mg tablet 300 mg PO QAM 06/14/18 03/23/22 History atorvastatin 80 mg tablet 80 mg PO QPM 06/14/18 03/23/22 History cholecalciferol (vitamin D3) 50 2,000 unit PO HS 06/14/18 03/23/22 History mcg (2,000 unit) capsule (Vitamin D3) docusate sodium 100 mg capsule 100 mg PO BID PRN 06/14/18 03/23/22 History famotidine 20 mg tablet 20 mg PO QAM 06/14/18 03/23/22 History ferrous sulfate 325 mg (65 mg 325 mg PO HS 06/14/18 03/23/22 History iron) tablet ipratropium 20 mcg-albuterol 100 1 puff INHALATION QID PRN 06/14/18 03/23/22 History mcg/actuation mist for inhalation (Combivent Respimat) lorazepam 0.5 mg tablet 0.5 mg PO TID PRN 06/14/18 03/23/22 History metoprolol succinate 25 mg 25 mg PO BID 06/14/18 03/23/22 History tablet,extended release 24 hr nitroglycerin 0.4 mg sublingual 1 tab SUBLINGUAL UD PRN 06/14/18 03/23/22 History tablet oxybutynin chloride 5 mg tablet 5 mg PO QAM 06/14/18 03/23/22 History albuterol sulfate 2.5 mg INHALATION Q4 PRN 01/07/19 03/23/22 History arformoterol 15 mcg/2 mL solution 15 mcg INHALATION BID 01/07/19 03/23/22 History for nebulization (Brovana) clopidogrel 75 mg tablet (Plavix) 75 mg PO QAM 11/03/19 03/23/22 History pantoprazole 40 mg tablet,delayed 40 mg PO BID #60 tab 11/03/19 03/23/22 Rx release albuterol sulfate 90 mcg/actuation 2 puffs INH Q6H PRN #18 gm 12/02/19 03/23/22 Rx aerosol inhaler gabapentin 300 mg capsule 300 mg PO QAM 01/28/20 03/23/22 History isosorbide mononitrate 30 mg 30 mg PO QAM 01/28/20 03/23/22 History tablet,extended release 24 hr aspirin 81 mg tablet,delayed 81 mg PO QAM 09/18/20 03/23/22 History release cyanocobalamin (vitamin B-12) 1,000 mcg SUBCUT MONTHLY 09/18/20 03/23/22 History 1,000 mcg/mL injection solution prednisone 10 mg tablet 10 mg PO UD PRN 09/18/20 03/23/22 History tramadol 50 mg tablet 50 mg PO BID 09/18/20 03/23/22 History valacyclovir 500 mg tablet 500 mg PO BID PRN 09/18/20 03/23/22 History levothyroxine 75 mcg tablet 75 mcg PO QAM 09/09/21 03/23/22 History (Synthroid) magnesium oxide 400 mg (241.3 mg 400 mg PO HS 09/09/21 03/23/22 History magnesium) tablet multivitamin 1 tab PO HS 09/09/21 03/23/22 History budesonide 0.5 mg/2 mL suspension 0.5 mg INHALATION BID 03/23/22 03/23/22 History for nebulization (Pulmicort) zinc 50 mg tablet 50 mg PO HS 03/23/22 03/23/22 History Patient History Medical History Anxiety Aortic aneurysm stable 3cm; pcp monitors Barretts esophagus Blood clotting disorder pt unable to verify Chronic anemia Chronic back pain Chronic kidney disease, stage 3 COPD (chronic obstructive pulmonary disease) inhalers and nebulizers daily Coronary artery disease Diverticular disease GERD (gastroesophageal reflux disease) Gout [place] filter in place Hearing deficit Hyperlipidemia Hypertension Idiopathic neuropathy Myocardial Infarction 2016--follows with Dr. Casanova Neuropathy Nocturnal hypoxemia On home oxygen therapy 2.5L N/C at HS Osteoarthritis Poor historian Prostate cancer sx Recurrent genital herpes simplex (Unknown) Sciatica Sleep apnea oxygen at night Temporomandibular joint disorder Surgical History History of arthroscopic knee surgery History of bilateral cataract extraction History of cardiac cath x5--last 2018 History of colonoscopy History of esophagogastroduodenoscopy (EGD) History of heart artery stent multiple--last 2018 2/2 to restenosis History of hernia repair epigastric History of left shoulder replacement History of lumbar surgery History of mandibular surgery tmj repair History of prostate biopsy malignant History of prostatectomy History of right inguinal hernia repair History of right shoulder replacement History of tooth extraction all teeth removed Status post correction of deviated nasal septum Status post total hip replacement, bilateral Family History Other Family history not known due to adoption Social History Smoking Status: Former smoker Tobacco Type: Cigarettes Years Smoked: 42; Second Hand Exposure: No; Hx Alcohol Use: Yes Alcohol type: beer Hx Substance Use: No Preferred Language: Portuguese Communication Ability: Effective Human Services Case Manager Required: No Beliefs That Will Affect Care: None marital status: Current Living Situation: Spouse Current Living Situation Comment: Lives with and son current occupational status: retired Other Information That Helps Us Care for You: No Feels Safe at Home: Yes Safety Concerns: Feels Safe At This Time Assistive Devices: Denture - Upper, Denture - Lower and Glasses Review of Systems Review of Systems: All systems reviewed & are unremarkable except as noted in HPI & below Results & Data ([facility]) Vital Signs (Past 12 Hours) Vital Signs Temp Pulse Pulse Resp BP BP Pulse Ox 03/23/22 12:46 36.4 C L 65 21 168/92 H 95 03/23/22 10:00 57 L 18 155/99 H 94 03/23/22 08:39 72 16 142/98 H 94 03/23/22 07:15 36.8 C 75 77 16 139/90 139/90 97 (1) Chronic kidney disease Chronic kidney disease stage: unspecified stage Qualified Code(s): N18.9 - Chronic kidney disease, unspecified (2) Hypertension Hypertension type: unspecified Qualified Code(s): I10 - Essential (primary) hypertension
[2022-03-23] MEDS: BUDESONIDE 0.5 MG/2 ML VIAL (PULMICORT) INH SCH (20:42)
[2022-03-23] MEDS: FORMOTEROL 20 MCG/2 ML VIAL INH SCH (20:42)
[2022-03-23] MEDS: ZINC SULFATE 220 MG CAPSULE PO SCH (21:20)
[2022-03-23] MEDS: MAGNESIUM OXIDE 400 MG TAB PO SCH (21:20)
[2022-03-23] MEDS: ATORVASTATIN 40 MG TAB PO SCH (21:20)
[2022-03-23] MEDS: MULTIVITAMIN TAB PO SCH (21:21)
[2022-03-23] MEDS: CHOLECALCIFEROL 1,000 UNITS 25 MCG TAB PO SCH (21:21)
[2022-03-23] MEDS: PANTOprazole 40 MG TAB PO SCH (21:21)
[2022-03-23] MEDS: FERROUS SULFATE 325 MG TAB PO SCH (21:21)
[2022-03-23] MEDS: METOPROLOL SUCC 25MG EXT REL TAB PO SCH (21:22)
[2022-03-23] MEDS: traMADol HCL 50 MG TABLET PO SCH (21:24)
--- NOTE | 2022-03-24 04:49 | Communication Note ---
Date of Service: March 24, 2022 Made aware by RN of uncontrolled blood pressure. SBP 140 to 160s overnight. CR 50s Patient asymptomatic as per RN. AP Hypertensive urgency Add amlodipine to regimen Will relay to AM provider.
[2022-03-24] MEDS ORDERED: amLODIPine BESYLATE 5 MG TAB PO SCH (04:50)
[2022-03-24 06:53] LABS: Hematocrit (blood only) 36.3 % (42-52); Hemoglobin 12.2 g/dL (14.0-18.0); Mean Corpuscular Hemoglobin 34.5 pg (25-34); Mean Corpuscular Hgb Conc 33.6 g/dL (32-36); Mean Corpuscular Volume 102.5 fL (80-100); Mean Platelet Volume 9.9 fL (7.4-10.4); Platelet Count 202 K/uL (130-400); RDW Standard Deviation 52.6 fL (36.4-46.3); Red Blood Count 3.54 M/uL (4.7-6.1); White Blood Count 5.84 K/uL (4.8-10.8)
[2022-03-24] MEDS: FORMOTEROL 20 MCG/2 ML VIAL INH SCH ×2 (07:06→19:47)
[2022-03-24] MEDS: BUDESONIDE 0.5 MG/2 ML VIAL (PULMICORT) INH SCH ×2 (07:06→19:47)
[2022-03-24 07:42] LABS: Albumin Globulin Ratio 1.3 (0.9-2); Albumin Level 3.9 gm/dl (3.4-5.0); BUN Creatinine Ratio 12.4 (10-20); Bilirubin,Total 0.9 mg/dl (0.2-1.0); Calcium 9.4 mg/dl (8.5-10.1); Chol HDL Ratio 3.9 (0-5); Creatinine Clr Calc Pharmacy 36.4 ml/min; Est GFR (Non-African American) 36.2 ml/min; Magnesium 1.7 mg/dl (1.7-2.4); Potassium 3.8 mmol/L (3.5-5.1); Total Protein 6.9 gm/dl (6.0-8.3)
[2022-03-24] MEDS: ASPIRIN 81 MG ECTAB PO SCH (08:23)
[2022-03-24] MEDS: CLOPIDOGREL BISULFATE 75 MG TAB PO SCH (08:23)
[2022-03-24] MEDS: PANTOprazole 40 MG TAB PO SCH ×2 (08:23→21:10)
[2022-03-24] MEDS: traMADol HCL 50 MG TABLET PO SCH ×2 (08:23→21:09)
[2022-03-24] MEDS: METOPROLOL SUCC 25MG EXT REL TAB PO SCH ×2 (08:23→21:11)
[2022-03-24] MEDS: LEVOTHYROXINE SODIUM 75 MCG TABLET PO SCH (08:24)
[2022-03-24] MEDS: OXYBUTYNIN CHLORIDE 5 MG TAB PO SCH (08:24)
[2022-03-24] MEDS: FAMOTIDINE 20 MG TAB PO SCH (08:24)
[2022-03-24] MEDS: allopurinoL 300 MG TAB PO SCH (08:24)
[2022-03-24] MEDS: ISOSORBIDE MONO EXTENDED REL 30 MG TABCR PO SCH (08:24)
[2022-03-24] MEDS ORDERED: LACTATED RINGER'S 1,000 ML IV SCH (09:00)
[2022-03-24 09:13] LABS: Estimated Average Glucose 126 mg/dl
[2022-03-24] MEDS ORDERED: amLODIPine BESYLATE 5 MG TAB PO ONE (10:09)
--- NOTE | 2022-03-24 16:21 | Cardiology Progress Note ---
Date of Service March 24, 2022 Assessment & Plan (1) Chest pain: (2) Elevated TSH: (3) Chronic kidney disease: (4) Hypertension: (5) CAD (coronary artery disease): (6) Nocturnal hypoxemia: (7) Chronic anemia: (8) [place] filter in place: (9) Afib: Plan: Atypical chest pain in the setting of cough after quitting smoking suspect musculoskeletal Ischemic work-up unremarkable with no EKG changes, negative high-sensitivity troponin and no new wall motion abnormalities on echocardiogram. Patient was hypertensive and amlodipine initiated Did become somewhat hypotensive with dizziness we will continue to monitor on telemetry overnight. Admission and Anticipated Discharge Date Admission Date: March 23, 2022 Subjective Patient seen and examined, chart reviewed. States he is feeling well. Still with occasional sharp chest discomfort with coughing. Telemetry reviewed: Normal sinus rhythm with supraventricular ectopy Review of Systems Review of Systems: All systems reviewed & are unremarkable except as noted in HPI & below Physical Exam Physical Exam: General: Awake, alert and oriented x 3. No acute distress. HEENT: Normocephalic, atraumatic. Pupils equal, round and reactive to light and accommodation. Extraocular muscles are intact. Anicteric sclera. Moist mucous membranes. Neck: No JVD. No bruit. Cardiovascular: Regular. Positive S-4. Normal S-1 and S-2. No S-3. No murmurs or rubs. Pulmonary: Clear to auscultation B/L. No rales, rhonchi or wheezing Abdomen: Bowel sounds x 4, soft. No rebound, guarding or tenderness. No organomegaly. Extremities: No clubbing, cyanosis or edema. +2 pedal pulses bilaterally. Skin: Warm and dry. Results & Data ([facility]) Vital Signs (Past 12 Hours) Vital Signs Temp Pulse Pulse Resp BP BP Pulse Ox 03/24/22 15:17 36.8 C 55 L 19 103/54 L 97 03/24/22 15:05 64 03/24/22 10:46 36.4 C L 55 L 20 113/72 94 03/24/22 08:00 60 03/24/22 07:23 36.4 C L 54 L 16 158/79 H 93 03/24/22 07:18 57 L 20 93 03/24/22 05:37 60 18 93 (1) Chronic kidney disease Chronic kidney disease stage: unspecified stage Qualified Code(s): N18.9 - Chronic kidney disease, unspecified (2) Hypertension Hypertension type: unspecified Qualified Code(s): I10 - Essential (primary) hypertension
--- NOTE | 2022-03-24 18:42 | Hospitalist Progress Note ---
Date of Service March 24, 2022 Assessment & Plan (1) Chest pain: Plan: Per MAVIS Marcano's notes with addendum: - Admit to tele -currently chest pain-free - Trend cardiac biomarkers, initial set was negative - EKG reviewed as above showing changes compared to previously - shows afib, RBBB, prolonged QTc - Check 2 D echo today- Last echo done 01/28/20 was reviewed: Showing 50 to 5 to 60% EF, moderate concentric LVH, no regional WMA, mild aortic regurg, mild aortic root dilation - If negative enzymes can consider a stress test tomorrow morning. - Consult cardiology - follows with Dr. Casanova as outpatient - PT/OT consulted - TSH elevated at 17, will check a free T4, patient reports that he has not been taking the levothyroxine at all, encouraged to resume this and he is agreeable, will need repeat labs within 4 to 6 weeks - Magnesium low at 1.3, replacing with 1 g IV now in the ER, follow a.m. labs - Check A1c and lipids since he is 8 hours fasting with the second troponin set 03/24 Acute coronary syndrome ruled out Troponins negative EKG no signs of acute ischemia Echocardiogram: No wall motion abnormalities Instructional Technology Facilitator consulted, no further cardiac intervention at this point Monitor blood pressure (2) CAD (coronary artery disease): Plan: - s/p rotational arthrectomy and stent placement to the RCA May 2017, staged PCI to the LAD June 2017 complicated by IV pole following on his right shoulder and subsequent shoulder pain, recurrent chest pain with in-stent restenoses of his RCA April 2019 and subsequent PCI - Con asa and plavix - Pt is not taking statin - encourage to do so - will need education on this prior to dc - Continue other home medications 03/24 Management per above (3) Hypertension: Plan: - Cont metoprolol succinate 25 mg BID, isosorbide monoitrate 30 mg daily 02/18 Amlodipine 2.5 added this morning Blood pressure on the lower side Discontinue amlodipine Monitor closely (4) Hypomagnesemia: Plan: Replaced (5) Elevated TSH: (6) Hypothyroid: Plan: - TSH elevated at 17, will check a free T4, patient reports that he has not been taking the levothyroxine at all, encouraged to resume this and he is agreeable, will need repeat labs within 4 to 6 weeks Free T4: Normal (7) COPD (chronic obstructive pulmonary disease): Plan: - Quit smoking 4 months ago, can continue inhalers daily, currently not on prednisone taper, (this is a prescription rescue pack per his PCP) -Does not wear supplemental O2 at baseline -Daily sputum production ? needs for PFTs and bronch? consider pulmonology referral 03/24 Patient reporting chest congestion, increased cough and phlegm yesterday Expected acute bronchitis, possible nonadherence to usual Brovana and Pulmicort Given doxycycline p.o., nebs every 6 hours Cough improving Continue to monitor closely Possible underlying cognitive impairment Noted memory impairment by staff including nurses and physical therapist Will need outpatient neurology work-up Will have to report to [facility] DVT ppx: - teds, scds, Plavix and aspirin CODE: Full code Dispo: Awaiting official PT and OT recommendations Admission and Anticipated Discharge Date Admission Date: March 23, 2022 Subjective Follow-up for chest pain, etc. Seen resting in bed, not in distress Just had physical therapy States he feels improved compared to yesterday No recurrence of chest pain Cough improving No shortness of breath with physical therapy No fevers or chills No other symptoms Review of Systems Review of Systems: all noted and negative except for above Physical Exam Physical Exam: General- oriented x 2-3, not in distress, speaks in sentences with no effort or accessory muscle use Eyes- anicteric Neck- no JVD Lungs-diminished but clear breath sounds bilaterally Heart- normal rate, regular rhythm; no murmurs Abdomen- normal bowel sounds, nondistended, soft, nontender Extremities- no pretibial edema, no calf tenderness Neuro- alert, oriented x 3; no gross focal neurologic deficits Skin- warm & dry Results & Data Results & Data ([facility]) Vital Signs (Past 12 Hours) Vital Signs Temp Pulse Pulse Resp BP BP Pulse Ox 03/24/22 15:17 36.8 C 55 L 19 103/54 L 97 03/24/22 15:05 64 03/24/22 10:46 36.4 C L 55 L 20 113/72 94 03/24/22 08:00 60 03/24/22 07:23 36.4 C L 54 L 16 158/79 H 93 03/24/22 07:18 57 L 20 93 all noted and reviewed including below (1) Hypertension Hypertension type: unspecified Qualified Code(s): I10 - Essential (primary) hypertension
[2022-03-24] MEDS: ATORVASTATIN 40 MG TAB PO SCH (21:09)
[2022-03-24] MEDS: MULTIVITAMIN TAB PO SCH (21:09)
[2022-03-24] MEDS: MAGNESIUM OXIDE 400 MG TAB PO SCH (21:10)
[2022-03-24] MEDS: CHOLECALCIFEROL 1,000 UNITS 25 MCG TAB PO SCH (21:10)
[2022-03-24] MEDS: ZINC SULFATE 220 MG CAPSULE PO SCH (21:10)
[2022-03-24] MEDS: FERROUS SULFATE 325 MG TAB PO SCH (21:10)
[2022-03-25 07:02] LABS: Hematocrit (blood only) 35.2 % (42-52); Hemoglobin 12.2 g/dL (14.0-18.0); Mean Corpuscular Hemoglobin 35.4 pg (25-34); Mean Corpuscular Hgb Conc 34.7 g/dL (32-36); Mean Platelet Volume 10.3 fL (7.4-10.4); Platelet Count 209 K/uL (130-400); RDW Coefficient of Variation 13.9 % (11.5-14.5); Red Blood Count 3.45 M/uL (4.7-6.1); White Blood Count 7.83 K/uL (4.8-10.8)
[2022-03-25] MEDS: BUDESONIDE 0.5 MG/2 ML VIAL (PULMICORT) INH SCH (07:18)
[2022-03-25] MEDS: FORMOTEROL 20 MCG/2 ML VIAL INH SCH (07:18)
[2022-03-25 07:26] LABS: Albumin Globulin Ratio 1.3 (0.9-2); Albumin Level 4.1 gm/dl (3.4-5.0); BUN Creatinine Ratio 12.1 (10-20); Calcium 9.5 mg/dl (8.5-10.1); Creatinine Clr Calc Pharmacy 35.4 ml/min; Est GFR (African American) 40.6 ml/min; Globulin 3.1 gm/dl (2.5-4.0); Potassium 3.6 mmol/L (3.5-5.1); Total Protein 7.2 gm/dl (6.0-8.3)
[2022-03-25] MEDS: allopurinoL 300 MG TAB PO SCH (09:00)
[2022-03-25] MEDS: ASPIRIN 81 MG ECTAB PO SCH (09:00)
[2022-03-25] MEDS: CLOPIDOGREL BISULFATE 75 MG TAB PO SCH (09:00)
[2022-03-25] MEDS: OXYBUTYNIN CHLORIDE 5 MG TAB PO SCH (09:01)
[2022-03-25] MEDS: ISOSORBIDE MONO EXTENDED REL 30 MG TABCR PO SCH (09:01)
[2022-03-25] MEDS: LEVOTHYROXINE SODIUM 75 MCG TABLET PO SCH (09:01)
[2022-03-25] MEDS: PANTOprazole 40 MG TAB PO SCH (09:01)
[2022-03-25] MEDS: FAMOTIDINE 20 MG TAB PO SCH (09:01)
[2022-03-25] MEDS: METOPROLOL SUCC 25MG EXT REL TAB PO SCH (09:01)
--- NOTE | 2022-03-25 15:56 | Hospitalist Progress Note ---
Date of Service March 25, 2022 Assessment & Plan (1) Chest pain: Plan: Per MAVIS Marcano's notes with addendum: - Admit to tele -currently chest pain-free - Trend cardiac biomarkers, initial set was negative - EKG reviewed as above showing changes compared to previously - shows afib, RBBB, prolonged QTc - Check 2 D echo today- Last echo done 01/28/20 was reviewed: Showing 50 to 5 to 60% EF, moderate concentric LVH, no regional WMA, mild aortic regurg, mild aortic root dilation - If negative enzymes can consider a stress test tomorrow morning. - Consult cardiology - follows with Dr. Casanova as outpatient - PT/OT consulted - TSH elevated at 17, will check a free T4, patient reports that he has not been taking the levothyroxine at all, encouraged to resume this and he is agreeable, will need repeat labs within 4 to 6 weeks - Magnesium low at 1.3, replacing with 1 g IV now in the ER, follow a.m. labs - Check A1c and lipids since he is 8 hours fasting with the second troponin set 03/24 Acute coronary syndrome ruled out Troponins negative EKG no signs of acute ischemia Echocardiogram: No wall motion abnormalities Bullet Lubricating Machine Operator consulted, no further cardiac intervention at this point Monitor blood pressure (2) CAD (coronary artery disease): Plan: - s/p rotational arthrectomy and stent placement to the RCA May 2017, staged PCI to the LAD June 2017 complicated by IV pole following on his right shoulder and subsequent shoulder pain, recurrent chest pain with in-stent restenoses of his RCA April 2019 and subsequent PCI - Con asa and plavix - Pt is not taking statin - encourage to do so - will need education on this prior to dc - Continue other home medications 03/24 Management per above (3) Hypertension: Plan: - Cont metoprolol succinate 25 mg BID, isosorbide monoitrate 30 mg daily 02/18 Amlodipine 2.5 added this morning Blood pressure on the lower side Discontinue amlodipine Monitor closely (4) Hypomagnesemia: Plan: Replaced (5) Elevated TSH: (6) Hypothyroid: Plan: - TSH elevated at 17, will check a free T4, patient reports that he has not been taking the levothyroxine at all, encouraged to resume this and he is agreeable, will need repeat labs within 4 to 6 weeks Free T4: Normal (7) COPD (chronic obstructive pulmonary disease): Plan: - Quit smoking 4 months ago, can continue inhalers daily, currently not on prednisone taper, (this is a prescription rescue pack per his PCP) -Does not wear supplemental O2 at baseline -Daily sputum production ? needs for PFTs and bronch? consider pulmonology referral 03/24 Patient reporting chest congestion, increased cough and phlegm yesterday Expected acute bronchitis, possible nonadherence to usual Brovana and Pulmicort Given doxycycline p.o., nebs every 6 hours Cough improving Continue to monitor closely Possible underlying cognitive impairment Noted memory impairment by staff including nurses and physical therapist Will need outpatient neurology work-up Will have to report to [facility] DVT ppx: - teds, scds, Plavix and aspirin CODE: Full code Dispo: Awaiting official PT and OT recommendations Admission and Anticipated Discharge Date Admission Date: March 23, 2022 Results & Data Results & Data ([facility]) Vital Signs (Past 12 Hours) Vital Signs Temp Pulse Pulse Resp BP BP Pulse Ox 03/25/22 10:56 36.9 C 58 L 14 99/59 L 91 03/25/22 07:34 70 03/25/22 07:18 61 18 97 03/25/22 07:13 36.5 C 60 14 133/82 95 03/25/22 04:41 36.5 C 61 18 156/79 H 93 (1) Hypertension Hypertension type: unspecified Qualified Code(s): I10 - Essential (primary) hypertension
--- NOTE | 2022-03-25 16:18 | Cardiology Progress Note ---
Date of Service March 25, 2022 Assessment & Plan (1) Chest pain: (2) Elevated TSH: (3) Chronic kidney disease: (4) Hypertension: (5) CAD (coronary artery disease): (6) Nocturnal hypoxemia: (7) Chronic anemia: (8) [place] filter in place: (9) Afib: Plan: Atypical chest pain in the setting of cough after quitting smoking suspect musculoskeletal Ischemic work-up unremarkable with no EKG changes, negative high-sensitivity troponin and no new wall motion abnormalities on echocardiogram. BP well controlled ok to d/c to home on previous medical regimen. my office will call to arrange follow up Admission and Anticipated Discharge Date Admission Date: March 23, 2022 Subjective Pt seen and examined, charted reviewed. Chest pain resolved. Feeling well overall. anxious for discharge. telel reviewed: sinus rhythm Review of Systems Review of Systems: All systems reviewed & are unremarkable except as noted in HPI & below Physical Exam Physical Exam: General: Awake, alert and oriented x 3. No acute distress. HEENT: Normocephalic, atraumatic. Pupils equal, round and reactive to light and accommodation. Extraocular muscles are intact. Anicteric sclera. Moist mucous membranes. Neck: No JVD. No bruit. Cardiovascular: Regular. Positive S-4. Normal S-1 and S-2. No S-3. No murmurs or rubs. Pulmonary: Clear to auscultation B/L. No rales, rhonchi or wheezing Abdomen: Bowel sounds x 4, soft. No rebound, guarding or tenderness. No organomegaly. Extremities: No clubbing, cyanosis or edema. +2 pedal pulses bilaterally. Skin: Warm and dry. Results & Data ([facility]) Vital Signs (Past 12 Hours) Vital Signs Temp Pulse Pulse Resp BP BP Pulse Ox 03/25/22 14:20 59 L 03/25/22 10:56 36.9 C 58 L 14 99/59 L 91 03/25/22 07:34 70 03/25/22 07:18 61 18 97 03/25/22 07:13 36.5 C 60 14 133/82 95 03/25/22 04:41 36.5 C 61 18 156/79 H 93 (1) Chronic kidney disease Chronic kidney disease stage: unspecified stage Qualified Code(s): N18.9 - Chronic kidney disease, unspecified (2) Hypertension Hypertension type: unspecified Qualified Code(s): I10 - Essential (primary) hypertension
== END 2022-03-25 16:45 | disposition home health service (06) | DRG 313 ==
LOC: ED 07:09 → EDINP 08:47 → 2S 11:09

== ENCOUNTER 2023-01-12 18:41 | Observation (INO) ==
--- NOTE | 2023-01-12 20:17 | XRay Report ---
XR chest 1V portable CLINICAL HISTORY: Chest pain, nonspecific COMPARISON STUDY: Chest radiograph and chest CT December 04, 2022. FINDINGS: Bilateral shoulder arthroplasties are incidentally noted. Low lung volumes are again noted. Cardiomegaly is unchanged. No evidence for pulmonary edema. There is possible mild right upper lung airspace opacity. This is new since prior chest radiograph and chest CT. This could represent extrapl eural fat. IMPRESSION: Possible mild right upper lung airspace opacity. This could reflect a small focus of pneu monia or extrapleural fat. ACT 112: Negative or not required by law. Electronically signed by: Albin Graves M.D. 01/12/2023 8:15 PM
[2023-01-12 20:30] LABS: Basophils # (auto) 0.05 K/uL (0-0.2); Basophils % (auto) 0.6 %; Eosinophils # (auto) 0.07 K/uL (0-0.50); Eosinophils % (auto) 0.9 %; Hematocrit (blood only) 40.1 % (42.0-52.0); Hemoglobin 13.5 g/dl (14.0-18.0); Immature Granulocytes # (auto) 0.09 K/uL (0.01-0.20); Immature Granulocytes % (auto) 1.1 %; Lymphocytes # (auto) 1.42 K/uL (1.2-3.4); Lymphocytes % (auto) 17.4 %; Mean Corpuscular Hgb Conc 33.7 g/dL (32.0-36.0); Mean Corpuscular Volume 103.9 fL (80.0-100.0); Mean Platelet Volume 10.6 fL (9.4-12.4); Monocytes # (auto) 0.74 K/uL (0.11-0.59); Monocytes % (auto) 9.1 %; Neutrophils % (auto) 70.9 %; Platelet Count 150 K/uL (130-400); RDW Coefficient of Variation 14.1 % (11.5-14.5); Red Blood Count 3.86 M/uL (4.70-6.10); White Blood Count 8.17 K/ul (4.8-10.8)
[2023-01-12 20:48] LABS: Albumin Globulin Ratio 1.4 (0.9-2); BUN Creatinine Ratio 12.1 (10-20); Bilirubin,Total 0.9 mg/dl (0.2-1.0); Calcium 9.5 mg/dl (8.6-10.3); Creatinine Clr Calc Pharmacy 31.3 ml/min; Est GFR (African American) 33.2 ml/min; Est GFR (Non-African American) 28.6 ml/min; Globulin 2.8 gm/dl (2.5-4.0); Potassium 4.3 mmol/L (3.5-5.1); Total Protein 6.8 gm/dl (6.0-8.3)
[2023-01-12 21:01] LABS: Troponin I High Sensitivity 64.4 pg/ml (0-20)
[2023-01-12] MEDS ORDERED: ASPIRIN CHEW 324 MG PO STA (21:48)
--- NOTE | 2023-01-12 21:55 | Emergency Department Note ---
Impression & Plan Chest pain, Non-ST elevation GA (NSTEMI) ED Provider Note HISTORY OF PRESENT ILLNESS: Patient is a 77-year-old male presenting with chest pain. Pain started around 2 hours ago. Locates the pain to the substernal region with radiation into the back. Reports some associated shortness of breath. Denies any nausea or vomiting. Patient has a history of CAD with stents and is on Plavix. He reports pain has improved on arrival to the emergency department. Denies any DVT or PE history. Denies any lower extremity edema. ROS: as above PHYSICAL EXAM: Constitutional: Patient appears in no acute distress. HENT: Head: Normocephalic and atraumatic. Eyes: EOMI, PERRL Mouth/Throat: Mucous membranes moist. Neck: Trachea midline. Neck supple. Cardiovascular: RRR, No murmurs, rubs or gallops. Intact distal pulses. Pulmonary/Chest: No respiratory distress. Breath sounds clear and equal bilaterally. No wheezes or rales. No chest wall tenderness to palpation. Abdominal: BS +. Abdomen soft, no tenderness, rebound or guarding. Back: No midline spinal tenderness, no paraspinal tenderness, no CVA tenderness. Musculoskeletal: No edema, tenderness or deformity noted. Skin: Warm and dry. No rash, erythema, pallor or cyanosis Psychiatric: Appropriate mood and affect for situation. Neurological: Alert and keenly responsive. CN II-XII grossly intact, moving all extremities equally and fully. MDM: - Vitals signs stable. - History obtained via patient. Patient presents with substernal chest pain that started 2 hours prior to arrival. Locates pain to the substernal region with radiation into the back. Associated shortness of breath. He has a history of CAD with stents in place. He is on Plavix - Chronic conditions affecting care: aortic aneurysms; CKD stage 3; CAD; HTN; HLD - Differential diagnoses include, but are not limited to: Acute coronary syndrome; pulmonary embolism; dissection; tension pneumothorax; esophageal rupture; pneumonia - Order placed for continuous cardiac monitoring. At this time, monitor showed rate of 70 bpm with normal sinus rhythm, per my interpretation. - External medical records reviewed. Patient had echocardiogram in March 2022 which was stable from his previous from 2019 - EKG reviewed by myself showed normal sinus rhythm. Rate 82 bpm. QTc 450. Noted to have a right bundle branch block. No acute ischemic changes. - Laboratory workup interpreted by myself showed normal WBC; stable electrolytes; CKD (Cr 2.15); elevated troponin (64.4); normal lipase - CXR shows concern for possible right upper lobe pneumonia versus extrapleural fat. - Patient given 324 mg PO aspirin. - Patient's prior EKG from 03/23/2022 shows he had a right bundle branch block previously - HEART score 6, (+1 story; +2 age; +2 risk factors; +1 trop), resulting in a moderate score. - Consider dissection given the patient's chest pain with back pain. A D-dimer was obtained - Discussion was had with high school social science teacher about patient's case and need for admiss ion. - Hospitalist consulted for admission. - [facility] I provided 33 minutes of critical care time to this patient's care outside of billable procedures. ASSESSMENT AND PLAN: Diagnosis: chest pain; NSTEMI Plan: admit Past Med/Surg History Medical History Anxiety Aortic aneurysm stable 3cm; pcp monitors Barretts esophagus Blood clotting disorder pt unable to verify Chronic anemia Chronic back pain Chronic kidney disease, stage 3 COPD (chronic obstructive pulmonary disease) inhalers and nebulizers daily Coronary artery disease Diverticular disease GERD (gastroesophageal reflux disease) Gout Gracie filter in place Hearing deficit Hyperlipidemia Hypertension Idiopathic neuropathy Myocardial Infarction 2016--follows with Dr. Casanova Neuropathy Nocturnal hypoxemia On home oxygen therapy 2.5L N/C at HS Osteoarthritis Poor historian Prostate cancer sx Recurrent genital herpes simplex (Unknown) Sciatica Sleep apnea oxygen at night Temporomandibular joint disorder Surgical History History of arthroscopic knee surgery History of bilateral cataract extraction History of cardiac cath x5--last 2018 History of colonoscopy History of esophagogastroduodenoscopy (EGD) History of heart artery stent multiple--last 2018 2/2 to restenosis History of hernia repair epigastric History of left shoulder replacement History of lumbar surgery History of mandibular surgery tmj repair History of prostate biopsy malignant History of prostatectomy History of right inguinal hernia repair History of right shoulder replacement History of tooth extraction all teeth removed Status post correction of deviated nasal septum Status post total hip replacement, bilateral Family History Other Family history not known due to adoption Social History Smoking Status: Never smoker Tobacco Type: Cigarettes Second Hand Exposure: No; Hx Alcohol Use: Yes Alcohol type: beer Hx Substance Use: No Preferred Language: Thai Communication Ability: Effective Cytology Technologist Required: No Beliefs That Will Affect Care: None marital status: Current Living Situation: Spouse Current Living Situation Comment: Lives with and son current occupational status: retired How many Children do You have: 4 Feels Safe at Home: Yes Assistive Devices: Cane, Oxygen - at Night and Walker Allergies Allergies Allergy/AdvReac Type Severity Reaction Status Date / Time benzocaine Allergy Severe SLOUGHING Verified 01/12/23 21:39 OF SKIN clindamycin Allergy Intermediate RASH Verified 01/12/23 21:39 clobetasol Allergy Intermediate ITCHING Verified 01/12/23 21:39 cyanocobalamin (vitamin B12) Allergy Intermediate Rash Verified 01/12/23 21:39 doxycycline Allergy Intermediate RASH Verified 01/12/23 21:39 Penicillins Allergy Intermediate HIVES Verified 01/12/23 21:39 phenethylamine Allergy Intermediate Itching Verified 01/12/23 21:39 povidone-iodine Allergy Intermediate Hives Verified 01/12/23 21:39 [From Betadine] soap [From Betadine] Allergy Intermediate Hives Verified 01/12/23 21:39 tea tree Allergy Intermediate ITCHING Verified 01/12/23 21:39 Home Meds Home Medications Medication Instructions Recorded Confirmed atorvastatin 80 mg tablet 80 mg PO QPM 06/14/18 01/12/23 cholecalciferol (vitamin D3) 50 2,000 unit PO HS 06/14/18 01/12/23 mcg (2,000 unit) capsule (Vitamin D3) docusate sodium 100 mg capsule 100 mg PO BID PRN Constipation 06/14/18 01/12/23 famotidine 20 mg tablet 20 mg PO QAM 06/14/18 01/12/23 ferrous sulfate 325 mg (65 mg 325 mg PO HS 06/14/18 01/12/23 iron) tablet ipratropium 20 mcg-albuterol 100 1 puff inhalation QID PRN 06/14/18 01/12/23 mcg/actuation mist for inhalation Cough/WHEEZING (Combivent Respimat) lorazepam 0.5 mg tablet 0.5 mg PO TID PRN Anxiety 06/14/18 01/12/23 metoprolol succinate 25 mg 25 mg PO BID 06/14/18 01/12/23 tablet,extended release 24 hr nitroglycerin 0.4 mg sublingual 1 tab sublingual UD PRN Angina 06/14/18 01/12/23 tablet oxybutynin chloride 5 mg tablet 5 mg PO BID 06/14/18 01/12/23 albuterol sulfate 2.5 mg/3 mL 2.5 mg inhalation QID PRN 01/07/19 01/12/23 (0.083 %) solution for nebulization Shortness Of Breath clopidogrel 75 mg tablet (Plavix) 75 mg PO QAM 11/03/19 01/12/23 isosorbide mononitrate 30 mg 30 mg PO QAM 01/28/20 01/12/23 tablet,extended release 24 hr aspirin 81 mg tablet,delayed 81 mg PO QAM 09/18/20 01/12/23 release cyanocobalamin (vitamin B-12) 1,000 mcg subcut MONTHLY 09/18/20 01/12/23 1,000 mcg/mL injection solution tramadol 50 mg tablet 50 mg PO BID 09/18/20 01/12/23 valacyclovir 500 mg tablet 500 mg PO BID PRN RECURRENT EPISODE 09/18/20 01/12/23 levothyroxine 75 mcg tablet 75 mcg PO QAM 09/09/21 01/12/23 (Synthroid) magnesium oxide 400 mg (241.3 mg 400 mg PO HS 09/09/21 01/12/23 magnesium) tablet multivitamin 1 tab PO HS 09/09/21 01/12/23 acetaminophen 500 mg tablet 1,000 mg PO Q8H PRN Pain 12/04/22 01/12/23 (Tylenol Extra Strength) allopurinol 300 mg tablet 300 mg PO DAILY 12/04/22 01/12/23 budesonide 160 mcg-glycopyr 9 2 inh inhalation BID 12/04/22 01/12/23 mcg-formot 4.8 mcg/actuation HFA inhaler (Breztri Innovaphere) Previous Rx's Medication Instructions Recorded pantoprazole 40 mg tablet,delayed 40 mg PO BID #60 tabs 11/03/19 release albuterol sulfate 90 mcg/actuation 2 inha inhalation QID PRN 12/04/22 aerosol inhaler shortness of breath or wheezing #6.7 grams Results & Data (ED) Vital Signs Vital Signs - 24 hr 01/12/23 18:42 01/12/23 18:54 01/12/23 21:20 Temperature 36.8 C Temperature Source Temporal Artery Scan Pulse Rate 75 75 Pulse Rate [Left Finger] 69 Respiratory Rate 24 18 Respiratory Effort / Characteristics Non-Labored Spontaneous Respiratory Depth Normal Normal Blood Pressure 126/77 Blood Pressure [Right Arm] 110/75 Blood Pressure Mean 93 Blood Pressure Mean [Right Arm] 86 Blood Pressure Position [Right Arm] Sitting Pulse Oximetry 94 96 Oxygen Delivery Method Room Air Room Air Sepsis Recent Fever Within 48 Hours No Sepsis New/Unexplained Change in Mental Status No Sepsis Action Taken by Nursing No Action Required Laboratory Data 01/12/23 19:00 01/12/23 19:00 Lab Results 01/12/23 01/12/23 01/12/23 Range/Units 19:00 19:00 21:00 WBC 8.17 (4.8-10.8) K/ul RBC 3.86 L (4.70-6.10) M/uL Hgb 13.5 L (14.0-18.0) g/dl Hct 40.1 L (42.0-52.0) % MCV 103.9 H (80.0-100.0) fL MCH 35.0 H (25.0-34.0) pg MCHC 33.7 (32.0-36.0) g/dL RDW Std Deviation 53.0 H (36.4-46.3) fL RDW Coeff of Zoë 14.1 (11.5-14.5) % Plt Count 150 (130-400) K/uL MPV 10.6 (9.4-12.4) fL Immature Gran % (Auto) 1.1 % Neut % (Auto) 70.9 % Lymph % (Auto) 17.4 % Roane % (Auto) 9.1 % Eos % (Auto) 0.9 % Baso % (Auto) 0.6 % Neut # (Auto) 5.80 (1.40-6.50) K/uL Lymph # (Auto) 1.42 (1.2-3.4) K/uL Roane # (Auto) 0.74 H (0.11-0.59) K/uL Eos # (Auto) 0.07 (0-0.50) K/uL Baso # (Auto) 0.05 (0-0.2) K/uL Immature Gran # (Auto) 0.09 (0.01-0.20) K/uL Sodium 140 (136-145) mmol/L Potassium 4.3 (3.5-5.1) mmol/L Chloride 106 (98-107) mmol/L Carbon Dioxide 25 (21-32) mmol/L Anion Gap 9 (3-11) BUN 26 H (6-23) mg/dl Creatinine 2.15 H (0.6-1.4) mg/dl Est Cr Clr Drug Dosing 31.3 ml/min Est GFR ( Amer) 33.2 ml/min Est GFR (Non-Af Amer) 28.6 ml/min BUN/Creatinine Ratio 12.1 (10-20) Glucose 96 (70-99(Fasting)) mg/dl Calcium 9.5 (8.6-10.3) mg/dl Total Bilirubin 0.9 (0.2-1.0) mg/dl AST 18 (13-39) U/L ALT 29 (7-52) U/L Alkaline Phosphatase 91 (34-104) U/L Troponin I High Sens 64.4 H* (0-20) pg/ml Total Protein 6.8 (6.0-8.3) gm/dl Albumin 4.0 (3.4-5.0) gm/dl Globulin 2.8 (2.5-4.0) gm/dl Albumin/Globulin Ratio 1.4 (0.9-2) Lipase 49 (11-82) U/L SARS-CoV-2, RNA, NAAT NEGATIVE (NEGATIVE) Imaging Data Radiologist's Impression: Chest X-Ray 01/12/23 19:27 XR chest 1V portable CLINICAL HISTORY: Chest pain, nonspecific COMPARISON STUDY: Chest radiograph and chest CT December 04, 2022. FINDINGS: Bilateral shoulder arthroplasties are incidentally noted. Low lung volumes are again noted. Cardiomegaly is unchanged. No evidence for pulmonary edema. There is possible mild right upper lung airspace opacity. This is new since prior chest radiograph and chest CT. This could represent extrapleural fat. IMPRESSION: Possible mild right upper lung airspace opacity. This could reflect a small focus of pneumonia or extrapleural fat. ACT 112: Negative or not required by law. Electronically signed by: Albin Graves M.D. 01/12/2023 8:15 PM Discharge Plan Visit Data Chief Complaint: Chest Pain Stated Complaint: CHEST PAIN, HAD ULTRASOUND ED Provider: Bernice Sweeney Discharge Problem: Chest pain, Non-ST elevation GA (NSTEMI) Forms Stand Alone Forms: [facility] Prescriptions Prescriptions: No Action atorvastatin 80 mg tablet 80 mg PO QPM famotidine 20 mg tablet 20 mg PO QAM lorazepam 0.5 mg tablet 0.5 mg PO TID PRN (Reason: Anxiety) ferrous sulfate 325 mg (65 mg iron) Tablet 325 mg PO HS nitroglycerin 0.4 mg tablet, sublingual 1 tab Sublingual UD PRN (Reason: Angina) docusate sodium 100 mg Capsule 100 mg PO BID PRN (Reason: Constipation) metoprolol succinate 25 mg tablet extended release 24 hr 25 mg PO BID oxybutynin chloride 5 mg tablet 5 mg PO BID cholecalciferol (vitamin D3) [Vitamin D3] 2,000 unit Capsule 2,000 unit PO HS Combivent Respimat 20-100 mcg/actuation Mist 1 puff INHALATION QID PRN (Reason: Cough/WHEEZING) albuterol sulfate 2.5 mg /3 mL (0.083 %) Solution For Nebulization 2.5 mg INHALATION QID MDD 30 DOSES/MONTH PRN (Reason: Shortness Of Breath) clopidogrel [Plavix] 75 mg Tablet 75 mg PO QAM pantoprazole 40 mg Tablet,Delayed Release (Dr/Ec) 40 mg PO BID Qty: 60 1RF isosorbide mononitrate 30 mg tablet extended release 24 hr 30 mg PO QAM aspirin 81 mg Tablet,Delayed Release (Dr/Ec) 81 mg PO QAM valacyclovir 500 mg tablet 500 mg PO BID PRN (Reason: RECURRENT EPISODE) tramadol 50 mg tablet 50 mg PO BID cyanocobalamin (vitamin B-12) 1,000 mcg/mL solution 1,000 mcg subcut MONTHLY Rx Instructions: first of every month multivitamin Tablet 1 tab PO HS levothyroxine [Synthroid] 75 mcg Tablet 75 mcg PO QAM magnesium oxide 400 mg (241.3 mg magnesium) tablet 400 mg PO HS acetaminophen [Tylenol Extra Strength] 500 mg Tablet 1,000 mg PO Q8H PRN (Reason: Pain) allopurinol 300 mg tablet 300 mg PO DAILY Breztri Aerosphere 160-9-4.8 mcg/actuation HFA aerosol inhaler 2 inh INHALATION BID albuterol sulfate 90 mcg/actuation HFA aerosol inhaler 2 inha INH QID PRN (Reason: shortness of breath or wheezing) Qty: 6.7 0RF Referrals Referrals: Jacob Jones MD [Primary Care Provider] -
[2023-01-12 22:37] LABS: D Dimer 2360 ug/L FEU (0-500)
[2023-01-13] MEDS ORDERED: IPRATROPIUM BROMIDE/ALBUTEROL respimat INH INH PRN (01:27)
[2023-01-13] MEDS ORDERED: NITROGLYCERIN SL 0.4 MG/TAB TAB SL PRN ×2 (01:27)
[2023-01-13] MEDS ORDERED: ALBUTEROL 0.083% NEBU SOLN 3 ML VIAL INH PRN (01:27)
[2023-01-13] MEDS ORDERED: ACETAMINOPHEN 325 MG TAB PO PRN (01:27)
[2023-01-13] MEDS ORDERED: ALBUTEROL HFA 8 GM INHALER INH PRN (01:27)
[2023-01-13] MEDS ORDERED: DOCUSATE SODIUM 100 MG CAP PO PRN (01:27)
[2023-01-13] MEDS ORDERED: POLYETHYLENE (MIRALAX) 17 GM PACK PO PRN (01:27)
--- NOTE | 2023-01-13 02:18 | History and Physical Report ---
DATE OF ADMISSION: 01/12/2023. CHIEF COMPLAINT: Chest pain. HISTORY OF PRESENT ILLNESS: A 77-year-old male with past medical history significant for CAD, history of rotational atherectomy and stent placement to the RCA in May 2017, staged PCI to LAD in 08/2017, recurrent chest pain with in-stent restenosis of RCA in 04/2019 with subsequent PCI, chronic kidney disease stage III, history of tobacco abuse with COPD, follows with pulmonary; GERD, history of Sepulveda's esophagus, hypertension, polyneuropathy, mild dementia, 3.5 cm infrarenal abdominal aortic aneurysm, history of infrarenal IVC filter in place, SVT versus PAF on zio patch 04/2022, right bundle-branch block, diagnosed in November 2022; bronchiectasis, asthma, hypertension, vitamin B12 deficiency, history of herpes simplex infection, moderate vascular dementia, anemia of chronic disease, generalized anxiety disorder, presents with chest pain. The patient says he started to have since afternoon chest discomfort right side, constant pain, moderate to severe in nature, no radiation. Has some nausea and abdominal discomfort, no headache. Has some dizziness. No cough, no fevers. Vision is not great, no runny nose, no sore throat. Generally at home he ambulates with cane, but when goes out his takes him in the wheelchair. is in the room. Currently, sitting in chair comfortably and hemodynamically stable. Currently, he does not have any chest pain. Hemodynamically stable. ALLERGIES: TO BENZOCAINE, CLINDAMYCIN, CLOBETASOL, VITAMIN B12, DOXYCYCLINE, PENICILLIN, PHENTERMINE, SOAP, BETADINE, TEA TREE. PAST MEDICAL HISTORY: As mentioned above. PAST SURGICAL HISTORY: Cardiac catheterization with stent placement, EGDs, IVC filter, needle punch biopsy of the prostate, radical prostate removal, revision of total hip joint surgery in 2006, bilateral shoulder surgery procedures in 1991 and 2007, total hip replacement in 2006. MEDICATIONS: As an outpatient he is on Tylenol 1000 mg p.o. q. 8 hours p.r.n., albuterol 2.5 mg inhalation q.i.d. p.r.n., allopurinol 300 mg p.o. daily, aspirin 81 mg p.o. a.m., atorvastatin 80 mg p.o. daily, budesonide/glycopyrronium/formoterol 2 inhalations b.i.d., vitamin D 2000 units p.o. at bedtime, Plavix 75 mg p.o. a.m., Combivent Respimat 1 puff q.i.d. p.r.n., vitamin B12 1000 mcg subcutaneous monthly, Colace 100 mg p.o. b.i.d. p.r.n., famotidine 20 mg p.o. a.m., ferrous sulfate 325 mg p.o. at bedtime, isosorbide mononitrate 30 mg p.o. a.m., levothyroxine 75 mcg p.o. a.m., lorazepam 0.5 mg p.o. t.i.d. p.r.n., magnesium oxide 400 mg p.o. at bedtime, metoprolol succinate 25 mg p.o. b.i.d., multivitamin one tablet p.o. at bedtime, oxybutynin chloride 5 mg p.o. b.i.d., Protonix 40 mg p.o. b.i.d., tramadol 50 mg p.o. b.i.d., valacyclovir 500 mg p.o. b.i.d. p.r.n. FAMILY HISTORY: Significant for mother had throat cancer; father has heart disorder; brother has COPD. SOCIAL HISTORY: , former smoker, quit in 2020. Smoked 1 pack a day for 42 years. No alcohol currently. No drug use. REVIEW OF SYSTEMS: As per HPI. Rest of the review of systems is negative. PHYSICAL EXAMINATION: GENERAL: The patient is of moderate build, not in acute distress. VITAL SIGNS: Temperature 36.8, pulse 69, respiratory rate 18, blood pressure 110/75, oxygen 96% on room air. HEENT: Pupils equal, round and reactive to light. Oral mucosa moist. NECK: No JVD, no neck masses. CARDIOVASCULAR: S1 and S2 heard. Regular rate and rhythm. No murmur, no gallop. RESPIRATORY SYSTEM: Normal AP diameter. No accessory muscle use. No wheezing or crackles. ABDOMEN: Soft, bowel sounds present, nontender, no distention. CENTRAL NERVOUS SYSTEM: Alert and oriented. Speech is clear. Obeys simple commands. Moves extremities. EXTREMITIES: No edema, no erythema seen. LABORATORY DATA: WBC 8.1, hemoglobin 13.5, hematocrit 40.1, platelets 150. D- dimer 2360. Sodium 140, potassium 4.3, chloride 106, bicarbonate 25, BUN 26, creatinine 2.15. Serum glucose 96, calcium 9.5, total bilirubin 0.9, AST 18, ALT 29, alkaline phosphatase 91. Troponin I high sensitivity 64.4, lipase 49. SARS-CoV-2 rapid test negative. IMAGING DATA: Chest x-ray, Possible mild right upper lung airspace opacity. This could reflect a small focus of pneumonia or extrapleural fat. EKG: Sinus rhythm with marked sinus arrhythmia at a rate of 82. Right bundle- branch block, no acute ST changes seen. ASSESSMENT AND PLAN: This is a 77-year-old male who presents with chest pain. 1. Chest pain, history of coronary artery disease, status post stents: EKG, no acute findings. Currently, chest pain free. Troponin is slightly elevated, will keep him n.p.o. Serial cardiac enzymes, repeat EKG, echocardiogram. Monitor in the tele floor. Consult cardiology in the a.m. for further recommendation. 2. History of coronary artery disease, status post rotational atherectomy and stent placement to RCA in May 2017, PCI to LAD in 06/2017 with in-stent stenosis of his RCA in April 2019 on subsequent PCI, on aspirin, Plavix, high- dose statin and metoprolol succinate. This will be continued. We will follow the echo report. 3. History of prediabetes: Will follow HbA1c levels. 4. History of chronic obstructive pulmonary disease, bronchiectasis and asthma: Continue his home inhalers. Currently seems stable. 5. History of tobacco abuse. 6. Hyperlipidemia: On statin. 7. Chronic kidney disease, stage III-IV: Present creatinine of 2.15, seems to be around baseline. We will follow the repeat labs, 8. elevated D-dimer. Currently, the patient is saturating okay on room air. Denies any shortness of breath. We will follow the lower extremity Doppler. 9. History of Sepulveda's esophagus: On famotidine, Protonix. 10. Hypertension: On metoprolol succinate and isosorbide mononitrate. Monitor the blood pressure. 11. History of gout: On allopurinol. 12. Hypothyroidism: On Synthroid. 13. Anemia of chronic disease: Hemoglobin 13.5, stable. 14. History of supraventricular tachycardia versus paroxysmal atrial fibrillation: On metoprolol succinate. Follow up with Cardiology. Not on anticoagulation at this time. 15.Possible pneumonia on CXR. Currently no symptoms. Will monitor. 16. Deep venous thrombosis prophylaxis: SCDs. DISPOSITION: Closely monitor in the tele floor. Level 1 full code. PT, OT prior to discharge. Social service to help with discharge planning. Job ID: [id number] [id number]
[2023-01-13] MEDS ORDERED: CALCIUM CARBONATE 500 MG CHEWABLE TAB PO STA (04:09)
[2023-01-13] MEDS: FAMOTIDINE 20 MG TAB PO SCH (04:57)
[2023-01-13] MEDS: LEVOTHYROXINE SODIUM 75 MCG TABLET PO SCH (05:35)
[2023-01-13 06:06] LABS: Basophils # (auto) 0.04 K/uL (0-0.2); Basophils % (auto) 0.5 %; Eosinophils % (auto) 1.3 %; Hematocrit (blood only) 37.9 % (42.0-52.0); Hemoglobin 12.8 g/dl (14.0-18.0); Immature Granulocytes # (auto) 0.16 K/uL (0.01-0.20); Immature Granulocytes % (auto) 2.1 %; Lymphocytes # (auto) 1.54 K/uL (1.2-3.4); Lymphocytes % (auto) 20.1 %; Mean Corpuscular Hemoglobin 34.8 pg (25.0-34.0); Mean Corpuscular Hgb Conc 33.8 g/dL (32.0-36.0); Monocytes # (auto) 0.82 K/uL (0.11-0.59); Monocytes % (auto) 10.7 %; Neutrophils # (auto) 4.99 K/uL (1.40-6.50); Neutrophils % (auto) 65.3 %; Platelet Count 133 K/uL (130-400); RDW Coefficient of Variation 14.2 % (11.5-14.5); RDW Standard Deviation 53.4 fL (36.4-46.3); Red Blood Count 3.68 M/uL (4.70-6.10); White Blood Count 7.65 K/ul (4.8-10.8)
--- NOTE | 2023-01-13 06:18 | Ultrasound Report ---
Exam(s): US VENOUS BILATERAL LOWER EXTREMITIES EXAM: US Duplex Bilateral Lower Extremities Veins CLINICAL HISTORY: Reason for exam: elevated d dimer, dvt?. TECHNIQUE: Real-time duplex ultrasound scan of the bilateral lower extremity veins integrating B-mode two-dimensional vascular structure, Doppler spectral analysis, color flow Doppler imaging and compression. COMPARISON: No relevant prior studies available. FINDINGS: Right deep veins: Unremarkable. No DVT in the right common femoral, femoral, proximal deep femoral or popliteal veins. The veins demonstrate normal color flow, are normally compressible, with normal phasic flow and/or augmentation response. Right superficial veins: Unremarkable. No thrombus in the visualized right great saphenous vein. Left deep veins: Unremarkable. No DVT in the left common femoral, femoral, proximal deep femoral or popliteal veins. The veins demonstrate normal color flow, are normally compressible, with normal phasic flow and/or augmentation response. Left superficial veins: Unremarkable. No thrombus in the visualized left great saphenous vein. Soft tissues: No acute findings. No popliteal cyst. IMPRESSION: Normal bilateral lower extremity duplex venous ultrasound. Electronically signed by: Rocky Schmidt MD 01/13/23 06:17 AM
[2023-01-13 06:22] LABS: BUN Creatinine Ratio 12.9 (10-20); Calcium 9.4 mg/dl (8.6-10.3); Est GFR (African American) 30.3 ml/min; Est GFR (Non-African American) 26.1 ml/min; Magnesium 1.9 mg/dl (1.7-2.4); Potassium 4.4 mmol/L (3.5-5.1)
[2023-01-13 06:31] LABS: Troponin I High Sensitivity 45.4 pg/ml (0-20)
--- NOTE | 2023-01-13 08:57 | Cardiology Consultation ---
Date of Consultation January 13, 2023 Assessment & Plan (1) Atypical chest pain: (2) HERNANDEZ (acute kidney injury): (3) History of coronary artery disease: Plan Patient with complex coronary history described above. Admitted for atypical right sided chest pain without acute EKG changes. HS troponin only minimally elevated and likely due to elevated creatinine. No evidence of ACS. Echo without wall motion abnormalities. He had outpatient nuclear stress test 1 week ago without ischemic changes. At time of consult patient was asymptomatic. He is a poor historian and was not able to describe chest pain or symptoms. In setting of cognitive dysfunction, normal echo, negative nuclear stress test one week ago, and HERNANDEZ, recommend conservative medical therapies for complex CAD. Continue ASA, statin, Plavix, isosorbide, metoprolol. If needed for additional antihypertensive therapy, would increase isosorbide, or consider amlodipine, which could also aid possible anginal symptoms. He has a long history of GI issues with Sepulveda's esophagus, GERD and possible need for cholecystectomy. Consider repeat abdominal US. No further cardiac testing at this time. Case discussed with Dr. Rodriguez Supervising Physician Co-Signing Physician Notes Supervising Physician Attestation: I have personally performed a history and physical examination on the patient. I agree with the physician elementary assistant principal's findings and plan as documented with the following additions. Subjective: Patient without chest discomfort at present. He is a poor historian, and I do not think this is due to hospital related delirium, as outpatient notes describe him as being a poor historian at baseline. His only subjective description of recent symptoms to me was indigestion. Exam: Cardiovascular: Regular rhythm, no murmurs, no edema Neuro: Lungs clear to auscultation bilaterally Data: D-dimer persistently elevated on measurements 12/04/2022 at which time the level was 1450 ug/L Repeat on 01/12/2023, 2360 ug/l. Creatinine 2.32 today, with outpatient baseline dating back to June, of 2.2, and March, 1.82 Mild elevation in high-sensitivity troponin, 64.4, 54.4, and 43.3 (downtrending). EKG performed 01/12/2023 and interpreted independently: Sinus rhythm 82 bpm with sinus arrhythmia, no significant repolarization changes, right bundle branch block Repeat at 6:50 AM: Sinus rhythm at 60 bpm sinus arrhythmia, first- degree AV block, right bundle branch block, no significant repolarization changes Assessment and Plan: -Patient with no angina at present. -Given baseline difficulties with mentation, and renal insufficiency, recommend ongoing medical therapy for underlying coronary heart disease. His recent nuclear stress test performed earlier this month is reassuring. -Continue aspirin, clopidogrel, isosorbide mononitrate, levothyroxine, metoprolol, atorvastatin 80 mg daily -Lower extremity venous duplex negative for DVT. Given elevated D-dimer, and inability to perform CT angiogram, could consider nuclear medicine perfusion scan. Agree with plan for abdominal ultrasound as well. Nikos Rodriguez, DO History of Present Illness Reason for Consultation: Chest pain; History of CAD Requesting Physician: Dr. Kaplan Attending Physician: Dr. Rodriguez History of Present Illness Patient is a 77 year old male who is known to [facility], Dr. Casanova/CHUN Rodriguez for complex history includin.CAD, history of rotational arthrectomy and stent placement to the RCA 05/2017 a.Staged PCI to the LAD 06/2017 b.Recurrent chest pain with InStent restenoses of his RCA 04/2019 and subsequent PCI c.Negative nuclear stress 05/2020 2.Chronic kidney disease 3.History of tobacco abuse with COPD- follows with Pulmonary 4.GERD 5.History of Sepulveda's esophagus 6.Hypertension 7.Polyneuropathy 8.Memory loss 9.3.5 centimeter infrarenal abdominal aortic aneurysm per CT of the abdomen pelvis, per Abd/pelvis CT, 09/[address] [facility]. 3.3 cm per aortic duplex, 12/2021 10.Infrarenal IVC filter in place 11.SVT vs PAF on zio, 04/2022, repeat ZIO demonstrating frequent ectopy and non sustained VT 11/2022 12.RBBB- dx 11/2022 Patient is a poor historian. Information obtained from inpatient/admission and outpatient records. He was admitted for right sided chest pain lasting several hours with abdominal pain, nausea. EKG on admission demonstrated sinus rhythm with RBBB and no acute changes. Initial troponin minimally elevated at 65. Creatinine elevated above baseline at 2.1 and increasing to 2.3. D.Dimer was elevated. This was elevated last admission as well in November 2022 and he underwent chest CT which was negative for PE. No chest CT completed this admission due to HERNANDEZ. Venous duplex was negative for DVT. BP controlled on admission. Given episode of chest pain in November 2022, patient had outpatient nuclear stress test last week which was negative for inducible ischemia. He also had outpatient ZIO due to possible history of afib, however ZIO only demonstrated frequent atrial and ventricular ectopy. At time of consult, patient was sleeping. Upon awakening patient, he was unable to tell me any details about his chest pain yesterday. He reports "I'm fine". He denies chest pain currently. No SOB. No abdominal pain currently. BP was elevated this morning. Receiving meds at time of consult. No orthopnea, PND or edema. No dizziness. No palpitations. He was also being evaluated for gallstones with significant sludge and possible need for future cholecystectomy. GI work up may be needed. Allergies Allergy/AdvReac Type Severity Reaction Status Date / Time benzocaine Allergy Severe SLOUGHING Verified 01/12/23 21:39 OF SKIN clindamycin Allergy Intermediate RASH Verified 01/12/23 21:39 clobetasol Allergy Intermediate ITCHING Verified 01/12/23 21:39 cyanocobalamin (vitamin B12) Allergy Intermediate Rash Verified 01/12/23 21:39 doxycycline Allergy Intermediate RASH Verified 01/12/23 21:39 Penicillins Allergy Intermediate HIVES Verified 01/12/23 21:39 phenethylamine Allergy Intermediate Itching Verified 01/12/23 21:39 povidone-iodine Allergy Intermediate Hives Verified 01/12/23 21:39 [From Betadine] soap [From Betadine] Allergy Intermediate Hives Verified 01/12/23 21:39 tea tree Allergy Intermediate ITCHING Verified 01/12/23 21:39 Home Medications Medication Instructions Recorded Confirmed Type atorvastatin 80 mg tablet 80 mg PO QPM 06/14/18 01/12/23 History cholecalciferol (vitamin D3) 50 2,000 unit PO HS 06/14/18 01/12/23 History mcg (2,000 unit) capsule (Vitamin D3) docusate sodium 100 mg capsule 100 mg PO BID PRN Constipation 06/14/18 01/12/23 History famotidine 20 mg tablet 20 mg PO QAM 06/14/18 01/12/23 History ferrous sulfate 325 mg (65 mg 325 mg PO HS 06/14/18 01/12/23 History iron) tablet ipratropium 20 mcg-albuterol 100 1 puff inhalation QID PRN 06/14/18 01/12/23 History mcg/actuation mist for inhalation Cough/WHEEZING (Combivent Respimat) lorazepam 0.5 mg tablet 0.5 mg PO TID PRN Anxiety 06/14/18 01/12/23 History metoprolol succinate 25 mg 25 mg PO BID 06/14/18 01/12/23 History tablet,extended release 24 hr nitroglycerin 0.4 mg sublingual 1 tab sublingual UD PRN Angina 06/14/18 01/12/23 History tablet oxybutynin chloride 5 mg tablet 5 mg PO BID 06/14/18 01/12/23 History albuterol sulfate 2.5 mg/3 mL 2.5 mg inhalation QID PRN 01/07/19 01/12/23 History (0.083 %) solution for nebulization Shortness Of Breath clopidogrel 75 mg tablet (Plavix) 75 mg PO QAM 11/03/19 01/12/23 History pantoprazole 40 mg tablet,delayed 40 mg PO BID #60 tabs 11/03/19 01/12/23 Rx release isosorbide mononitrate 30 mg 30 mg PO QAM 01/28/20 01/12/23 History tablet,extended release 24 hr aspirin 81 mg tablet,delayed 81 mg PO QAM 09/18/20 01/12/23 History release cyanocobalamin (vitamin B-12) 1,000 mcg subcut MONTHLY 09/18/20 01/12/23 History 1,000 mcg/mL injection solution tramadol 50 mg tablet 50 mg PO BID 09/18/20 01/12/23 History valacyclovir 500 mg tablet 500 mg PO BID PRN RECURRENT EPISODE 09/18/20 01/12/23 History levothyroxine 75 mcg tablet 75 mcg PO QAM 09/09/21 01/12/23 History (Synthroid) magnesium oxide 400 mg (241.3 mg 400 mg PO HS 09/09/21 01/12/23 History magnesium) tablet multivitamin 1 tab PO HS 09/09/21 01/12/23 History acetaminophen 500 mg tablet 1,000 mg PO Q8H PRN Pain 12/04/22 01/12/23 History (Tylenol Extra Strength) albuterol sulfate 90 mcg/actuation 2 inha inhalation QID PRN 12/04/22 01/12/23 Rx aerosol inhaler shortness of breath or wheezing #6.7 grams allopurinol 300 mg tablet 300 mg PO DAILY 12/04/22 01/12/23 History budesonide 160 mcg-glycopyr 9 2 inh inhalation BID 12/04/22 01/12/23 History mcg-formot 4.8 mcg/actuation HFA inhaler (Breztri Aerosphere) Patient History Medical History Anxiety Aortic aneurysm stable 3cm; pcp monitors Barretts esophagus Blood clotting disorder pt unable to verify Chronic anemia Chronic back pain Chronic kidney disease, stage 3 COPD (chronic obstructive pulmonary disease) inhalers and nebulizers daily Coronary artery disease Diverticular disease GERD (gastroesophageal reflux disease) Gout Gracie filter in place Hearing deficit Hyperlipidemia Hypertension Idiopathic neuropathy Myocardial Infarction 2016--follows with Dr. Casanova Neuropathy Nocturnal hypoxemia On home oxygen therapy 2.5L N/C at HS Osteoarthritis Poor historian Prostate cancer sx Recurrent genital herpes simplex (Unknown) Sciatica Sleep apnea oxygen at night Temporomandibular joint disorder Surgical History History of arthroscopic knee surgery History of bilateral cataract extraction History of cardiac cath x5--last 2018 History of colonoscopy History of esophagogastroduodenoscopy (EGD) History of heart artery stent multiple--last 11/03 to restenosis History of hernia repair epigastric History of left shoulder replacement History of lumbar surgery History of mandibular surgery tmj repair History of prostate biopsy malignant History of prostatectomy History of right inguinal hernia repair History of right shoulder replacement History of tooth extraction all teeth removed Status post correction of deviated nasal septum Status post total hip replacement, bilateral Family History Other Family history not known due to adoption Social History Smoking Status: Former smoker Tobacco Type: Cigarettes Smoking End Date: 20 years ago; Second Hand Exposure: No; Tobacco Cessation Education Requested by Patient: No Hx Alcohol Use: No Hx Substance Use: No Preferred Language: Telugu Communication Ability: Effective 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 Beliefs That Will Affect Care: None marital status: Current Living Situation: Spouse Current Living Situation Comment: lives with and son current occupational status: retired How many Children do You have: 4 Other Information That Helps Us Care for You: No Feels Safe at Home: Yes Safety Concerns: Feels Safe At This Time Assistive Devices: Denture - Upper, Denture - Lower, Glasses, Oxygen - at Night and Walker Assistive Devices Comment: dentures and walker at home Review of Systems Review of Systems: All systems reviewed & are unremarkable except as noted in HPI & below Physical Exam Constitutional: WD/WN, vitals as above + obese; no acute distress Eyes: PERRL, conjunctivae normal, anicteric sclerae Neck: + thick neck Respiratory: normal respiratory effort Auscultation: no crackles, no rales and no rhonchi Cardiovascular: Rate/Rhythm: regular rate and regular rhythm Heart Sounds: normal S1 and normal S2; no murmur Vessels: no JVD Extremities: no edema Gastrointestinal (Abdomen): normal bowel sounds, soft, nontender, no hepatosplenomegaly Skin: no rashes, warm and dry Results & Data Vital Signs (Past 12 Hours) Vital Signs Temp Pulse Pulse Resp BP Pulse Ox O2 Del Method 01/13/23 07:41 36.4 C L 55 L 20 161/84 H 95 Room Air 01/13/23 03:37 36.4 C L 60 20 150/97 H 96 Room Air 01/13/23 01:51 62 01/13/23 00:45 Room Air 01/13/23 00:45 36.6 C 61 17 140/90 96 Room Air 01/12/23 23:25 65 01/12/23 21:20 69 18 110/75 96 Room Air Laboratory Results Cardiac Enzymes 01/12/23 01/12/23 01/13/23 Range/Units 19:00 23:13 05:34 AST 18 (13-39) U/L Troponin I High Sens 64.4 H* 45.4 H D (0-20) pg/ml B-Natriuretic Peptide 355 H (0-100) pg/ml Coagulation 01/12/23 Range/Units 23:13 B-Natriuretic Peptide 355 H (0-100) pg/ml CBC 01/12/23 01/13/23 Range/Units 19:00 05:34 WBC 8.17 7.65 (4.8-10.8) K/ul RBC 3.86 L 3.68 L (4.70-6.10) M/uL Hgb 13.5 L 12.8 L (14.0-18.0) g/dl Hct 40.1 L 37.9 L (42.0-52.0) % Plt Count 150 133 (130-400) K/uL Neut # (Auto) 5.80 4.99 (1.40-6.50) K/uL Lymph # (Auto) 1.42 1.54 (1.2-3.4) K/uL Ross # (Auto) 0.74 H 0.82 H (0.11-0.59) K/uL Eos # (Auto) 0.07 0.10 (0-0.50) K/uL Baso # (Auto) 0.05 0.04 (0-0.2) K/uL Comprehensive Metabolic Panel 01/12/23 01/13/23 Range/Units 19:00 05:34 Sodium 140 142 (136-145) mmol/L Potassium 4.3 4.4 (3.5-5.1) mmol/L Chloride 106 106 (98-107) mmol/L Carbon Dioxide 25 28 (21-32) mmol/L BUN 26 H 30 H (6-23) mg/dl Creatinine 2.15 H 2.32 H (0.6-1.4) mg/dl Glucose 96 87 (70-99(Fasting)) mg/dl Calcium 9.5 9.4 (8.6-10.3) mg/dl AST 18 (13-39) U/L ALT 29 (7-52) U/L Alkaline Phosphatase 91 (34-104) U/L Total Protein 6.8 (6.0-8.3) gm/dl Albumin 4.0 (3.4-5.0) gm/dl Intake and Output 01/12/23 01/13/23 01/13/23 22:59 06:59 14:59 Other: Other Intake Source Patient is NPO Weight 92.9 kg 93 kg Weight Measurement Method Built in [facility] Diagnostic Findings Telemetry reviewed: NSR in the 60's. No arrhythmias. Repeat EKG this morning, 01/13/23: Sinus rhythm with sinus arrhythmia with 1st degree A-V block Right bundle branch block Septal infarct , age undetermined echo report reviewed dated 01/13/2023: Moderate concentric LVH LV wall motion is normal LVEF 55-60% Mild AI Mild aortic root dilatation Grade I diastolic dysfunction. Chest X-Ray 01/12/23 19:27 FINDINGS: Bilateral shoulder arthroplasties are incidentally noted. Low lung volumes are again noted. Cardiomegaly is unchanged. No evidence for pulmonary edema. There is possible mild right upper lung airspace opacity. This is new since prior chest radiograph and chest CT. This could represent extrapleural fat. IMPRESSION: Possible mild right upper lung airspace opacity. This could reflect a small focus of pneumonia or extrapleural fat. ACT 112: Negative or not required by law. Electronically signed by: Albin Graves M.D. 01/12/2023 8:15 PM Venous Doppler Study 01/13/23 01:27 IMPRESSION: Normal bilateral lower extremity duplex venous ultrasound. Electronically signed by: Rocky Schmidt MD 01/13/23 06:17 AM Nuclear Stress test report reviewed dated 01/05/2023: Interpretation Summary The Lexiscan myocardial perfusion imaging study reveal a moderate-sized fixed inferior perfusion defect. In light of the appearance of the raw data and the normal gated wall motion, this is felt to be an attenuation artifact. No evidence of inducible ischemia. Gated SPECT imaging reveals normal myocardial thickening and wall motion. The left ventricular ejection fraction was calculated to be 51% Outpatient ZIO monitor report reviewed November 2022: CONCLUSIONS: Final Interpretation 1. Predominant rhythm sinus with underlying 1st degree AV block; average HR 68bpm; slowest HR 47bpm at 10:11am consistent with sinus bradycardia; fastest HR 190bpm at 7:07pm consistent with WCT. 2. Frequent APCs with frequent SVT probably PAT; the longest episode was 2 minutes; average HR 106bpm (55-174bpm). No AF appreciated. 3. Frequent VPCs with 5 runs of WCT underlying mechanism most consistent with NSVT; longest episode was 6 beats. 4. The patient reported symptoms 1 time while in SR with ectopy. Medications Administered Current Inpatient Medications Acetaminophen (Acetaminophen 325 Mg Tab) 650 mg PO Q4H PRN PRN Reason: Pain or Fever Stop: 02/12/23 01:26 Albuterol (Albuterol Hfa 8 Gm Inhaler) 2 puffs INH QID PRN PRN Reason: shortness of breath or wheezin Stop: 02/12/23 01:26 Albuterol (Albuterol 0.083% Nebu Soln 3 Ml Vial) 2.5 mg INH QID PRN; Protocol PRN Reason: Shortness Of Breath Stop: 02/12/23 01:26 Albuterol (Ipratropium [place]/Albuterol Respimat Inh) 1 puffs INH QID PRN PRN Reason: Cough/WHEEZING Stop: 02/12/23 01:26 Allopurinol (Allopurinol 300 Mg Tab) 300 mg PO DAILY [facility] Stop: 02/12/23 08:59 Last Admin: 01/13/23 09:55 Dose: 300 mg Aspirin (Aspirin 81 Mg Ectab) 81 mg PO QAM [facility] Stop: 02/12/23 08:59 Last Admin: 01/13/23 09:55 Dose: 81 mg Atorvastatin Calcium (Atorvastatin 40 Mg Tab) 80 mg PO QPM [facility] Stop: 02/12/23 20:59 Clopidogrel Bisulfate ([facility]og[facility] 75 Mg Tab) [facility]: 02/12/23 08:59 Last Admin: 01/13/23 09:55 Dose: 75 mg Docusate Sodium (Docusate Sodium 100 Mg Cap) 100 mg PO BID PRN PRN Reason: Constipation Stop: 02/12/23 01:26 Famotidine (Famotidine 20 Mg Tab) 20 mg PO QAM [facility] Stop: 02/12/23 08:59 Last Admin: 01/13/23 04:57 Dose: 20 mg Ferrous Sulfate (Ferrous Sulfate 325 Mg Tab) 325 mg PO [facility] Stop: 02/12/23 20:59 Fluticasone Furoate (Fluticasone Furoate 200mcg 14 Puffs/Inhaler) 1 puffs INH DAILY [facility] Stop: 02/12/23 08:59 Last Admin: 01/13/23 09:55 Dose: 1 puffs Isosorbide Mononitrate (Isosorbide Ross Extended Rel 30 Mg Tabcr) [facility] Stop: 02/12/23 08:59 Last Admin: 01/13/23 09:54 Dose: 30 mg Levothyroxine Sodium (Levothyroxine Sodium 75 Mcg Tablet) 75 mcg PO DAILYBB [facility] Stop: 02/12/23 06:29 Last Admin: 01/13/23 05:35 Dose: 75 mcg Lorazepam (Lorazepam 0.5 Mg Tab) 0.5 mg PO TID PRN PRN Reason: Anxiety Stop: 02/12/23 01:26 Last Admin: 01/13/23 09:58 Dose: 0.5 mg Magnesium Oxide (Magnesium Oxide 400 Mg Tab) 400 mg PO HS [facility] Stop: 02/12/23 20:59 Metoprolol Succinate (Metoprolol Succ 25mg Ext Rel Tab) 25 mg PO BID [facility] Stop: 02/12/23 08:59 Last Admin: 01/13/23 09:55 Dose: 25 mg Multivitamins (Multivitamin Tab) 1 tab PO HS [facility] Stop: 02/12/23 20:59 Nitroglycerin (Nitroglycerin Sl 0.4 Mg/Tab Tab) 0.4 mg SL UD PRN PRN Reason: Angina Stop: 02/12/23 01:26 Oxybutynin Chloride (Oxybutynin Chloride 5 Mg Tab) 5 mg PO BID [facility] Stop: 02/12/23 08:59 Last Admin: 01/13/23 09:55 Dose: 5 mg Pantoprazole Sodium (Pantoprazole 40 Mg Tab) 40 mg PO BID [facility] Stop: 02/12/23 08:59 Last Admin: 01/13/23 09:55 Dose: 40 mg Polyethylene Glycol (Polyethylene (Miralax) 17 Gm Pack) 17 gm PO DAILY PRN PRN Reason: Constipation Stop: 02/12/23 01:26 Tramadol HCl (Tramadol Hcl 50 Mg Tablet) 50 mg PO BID [facility] Stop: 02/12/23 08:59 Last Admin: 01/13/23 09:58 Dose: 50 mg Umeclidinium/Vilanterol (Umeclidinium/Vilanterol 62.5/25mcg 7 Puffs/Inhaler) 1 puffs INH DAILY [facility] Stop: 02/12/23 08:59 Last Admin: 01/13/23 09:55 Dose: 1 puffs Vitamin D (Cholecalciferol 1,000 Units 25 Mcg Tab) 2,000 units PO HS [facility] Stop: 02/12/23 20:59
[2023-01-13] MEDS ORDERED: NON-FORMULARY MEDICATION (Budesonide-Glycopyr-Formoterol [Breztri Aerosphere] 160-9-4.8 mc INH SCH (09:00)
[2023-01-13 09:48] LABS: Estimated Average Glucose 131 mg/dl; Hemoglobin A1C 6.2 % (4.5-5.6)
[2023-01-13] MEDS: ISOSORBIDE MONO EXTENDED REL 30 MG TABCR PO SCH (09:54)
[2023-01-13] MEDS: allopurinoL 300 MG TAB PO SCH (09:55)
[2023-01-13] MEDS: oxyBUTYnin chloride 5 MG TAB PO SCH ×2 (09:55→21:04)
[2023-01-13] MEDS: ASPIRIN 81 MG ECTAB PO SCH (09:55)
[2023-01-13] MEDS: UMECLIDINIUM/VILANTEROL 62.5/25MCG 7 PUFFS/INHALER INH SCH (09:55)
[2023-01-13] MEDS: METOPROLOL SUCC 25MG EXT REL TAB PO SCH ×2 (09:55→21:04)
[2023-01-13] MEDS: CLOPIDOGREL BISULFATE 75 MG TAB PO SCH (09:55)
[2023-01-13] MEDS: PANTOprazole 40 MG TAB PO SCH ×2 (09:55→18:49)
[2023-01-13] MEDS: FLUTICASONE FUROATE 200MCG 14 PUFFS/INHALER INH SCH (09:55)
[2023-01-13] MEDS: LORazepam 0.5 MG TAB PO PRN ×2 (09:58→21:04)
[2023-01-13] MEDS: traMADol HCL 50 MG TABLET PO SCH ×2 (09:58→21:04)
--- NOTE | 2023-01-13 13:57 | Hospitalist Progress Note ---
Date of Service January 13, 2023 Assessment & Plan (1) Chest pain: Plan: Patient's chest pain is atypical. EKG did not show any ACS. Troponin is mildly elevated in setting of CKD Echocardiogram reviewed. Recent outpatient stress test was negative Ccie impute noted D-dimer is elevated. We will get VQ scan to rule out PE. History of gallstones. LFTs normal. Right upper quadrant ultrasound. Patient also has history of Sepulveda's esophagus. Called who reported that patient has been out of his pantoprazole for a few days. Atypical chest pain may be related to the this. Continue Pepcid and pantoprazole. also reported that patient's current confusion has been his baseline for some time now. Has been having declining cognitive function for some time. She states that he has neurology follow-up for further evaluation and work-up next month. (2) Chronic kidney disease: Plan: Patient has CKD 3. Monitor renal function. Avoid nephrotoxins (3) Hypothyroid: Plan: Continue levothyroxine Has prediabetes. Hemoglobin A1c 6.2 (4) History of coronary artery disease: Plan: Continue aspirin and Plavix Continue atorvastatin Continue Imdur (5) COPD (chronic obstructive pulmonary disease): Plan: Continue home inhalers DVT ppx- hep sq Admission and Anticipated Discharge Date Admission Date: January 12, 2023 Subjective Patient seen and examined. Patient is awake and alert, oriented to person only. Knows he is in the hospital but does not recall name. Not oriented to time. He denies any chest pain, abdominal pain at this time. Denies any other symptoms. Limited review of system due to confusion Physical Exam Constitutional: + well hydrated and + obese; no acute distress Eyes: PERRL, conjunctivae normal, anicteric sclerae ENMT: external ear and nose normal, oropharynx normal Respiratory: normal respiratory effort, lungs clear to auscultation Cardiovascular: Rate/Rhythm: regular rate and regular rhythm S1 S2 Gastrointestinal (Abdomen): normal bowel sounds, soft, nontender, no hepatosplenomegaly Neurologic: PERRL, EOMI, accommodation nl, no face palsy, no dysarthria Psychiatric: Alert, oriented to person only. Knows he is in the hospital but does not recall name. Not oriented to time. Results & Data Results & Data Vital Signs (Past 12 Hours) Vital Signs Temp Pulse Pulse Resp BP Pulse Ox O2 Del Method 04/14/23 12:06 36.5 C 63 20 148/80 H 94 Room Air 01/13/23 05:59 68 01/13/23 07:41 36.4 C L 55 L 20 161/84 H 95 Room Air 01/13/23 03:37 36.4 C L 60 20 150/97 H 96 Room Air Laboratory Results Abnormal lab results 01/12/23 01/12/23 01/12/23 Range/Units 19:00 19:00 19:00 RBC 3.86 L (4.70-6.10) M/uL Hgb 13.5 L (14.0-18.0) g/dl Hct 40.1 L (42.0-52.0) % MCV 103.9 H (80.0-100.0) fL MCH 35.0 H (25.0-34.0) pg RDW Std Deviation 53.0 H (36.4-46.3) fL [place] # (Auto) 0.74 H (0.11-0.59) K/uL D-Dimer 2360 H* (0-500) ug/L FEU BUN 26 H (6-23) mg/dl Creatinine 2.15 H (0.6-1.4) mg/dl Hemoglobin A1c (4.5-5.6) % Troponin I High Sens 64.4 H* (0-20) pg/ml B-Natriuretic Peptide (0-100) pg/ml 01/12/23 01/13/23 01/13/23 Range/Units 23:13 05:34 05:34 RBC 3.68 L (4.70-6.10) M/uL Hgb 12.8 L (14.0-18.0) g/dl Hct 37.9 L (42.0-52.0) % MCV 103.0 H (80.0-100.0) fL MCH 34.8 H (25.0-34.0) pg RDW Std Deviation 53.4 H (36.4-46.3) fL [place] # (Auto) 0.82 H (0.11-0.59) K/uL D-Dimer (0-500) ug/L FEU BUN 30 H (6-23) mg/dl Creatinine 2.32 H (0.6-1.4) mg/dl Hemoglobin A1c (4.5-5.6) % Troponin I High Sens 45.4 H D (0-20) pg/ml B-Natriuretic Peptide 355 H (0-100) pg/ml 01/13/23 01/13/23 Range/Units 05:34 11:16 RBC (4.70-6.10) M/uL Hgb (14.0-18.0) g/dl Hct (42.0-52.0) % MCV (80.0-100.0) fL MCH (25.0-34.0) pg RDW Std Deviation (36.4-46.3) fL [place] # (Auto) (0.11-0.59) K/uL D-Dimer (0-500) ug/L FEU BUN (6-23) mg/dl Creatinine (0.6-1.4) mg/dl Hemoglobin A1c 6.2 H (4.5-5.6) % Troponin I High Sens 44.3 H (0-20) pg/ml B-Natriuretic Peptide (0-100) pg/ml (2) Chronic kidney disease Chronic kidney disease stage: unspecified stage Qualified Code(s): N18.9 - Chronic kidney disease, unspecified
--- NOTE | 2023-01-13 14:48 | Nuclear Medicine Report ---
NUCLEAR PULMONARY PERFUSION SCAN CLINICAL HISTORY: Atypical chest pain. Elevated d-dimer. COMPARISON STUDY: Chest x-ray dated 01/12/2023. Chest CT dated 12/04/2022. TECHNIQUE: Nuclear pulmonary perfusion scan is performed following the IV administration of 5.6 mCi o f technetium 99m MAA. Ventilation and perfusion images were acquired in the anterior, posterior, and oblique projections. FINDINGS: A chest x-ray performed 01/12/2023 shows cardiomegaly without radiographic evidence of congestive fail ure. Right upper lobe airspace opacities are noted. No large pleural effusion is seen. Pulmonary perfusion is heterogeneous. There are no large segmental perfusion defects identified. A sm all peripheral defect is questioned in the right upper lung. IMPRESSION: 1. Heterogeneous perfusion with no large segmental perfusion defect identified. 2. A subsegmental perfusion defect is questioned in the right upper lung. If there is strong clinical concern for pulmonary embolus a CT angiogram of the chest should be obtained. ACT 112: Negative or not required by law. Electronically signed by: Braden Rucker M.D. 01/13/2023 2:46 PM
--- NOTE | 2023-01-13 15:15 | Ultrasound Report ---
ULTRASOUND RIGHT UPPER QUADRANT ABDOMEN CLINICAL HISTORY: Right upper quadrant abdominal pain. COMPARISON STUDY: Abdominal CT dated 09/16/2022. TECHNIQUE: Real-time, grayscale, and color flow sonography of the right upper quadrant of the abdomen was performed. Images are reviewed in the transverse and longitudinal planes. FINDINGS: Liver: The liver is normal in size and echotexture. There is no intrahepatic biliary ductal dilatatio n. The main portal vein is patent. Gallbladder: The gallbladder is mildly distended but otherwise normal in appearance. No gallstones ar e identified. There is no gallbladder wall thickening or pericholecystic fluid. A sonographic Delgado' s sign is reportedly absent. The common bile duct measures up to 0.4 cm in diameter. Pancreas: Visualized portions of the pancreatic head and body are normal in appearance. Right kidney: Survey images of the right kidney demonstrate normal size and echotexture. There is no hydronephrosis. Ascites: None. IMPRESSION: No acute sonographic abnormality is identified in the right upper quadrant. No gallstones are seen. ACT 112: Negative or not required by law. Electronically signed by: Braden Rucker M.D. 01/13/2023 3:14 PM
[2023-01-13] MEDS ORDERED: MAGNESIUM OXIDE 400 MG TAB PO SCH (21:00)
[2023-01-13] MEDS ORDERED: FERROUS SULFATE 325 MG TAB PO SCH (21:00)
[2023-01-13] MEDS ORDERED: MULTIVITAMIN TAB PO SCH (21:00)
[2023-01-13] MEDS ORDERED: CHOLECALCIFEROL 1,000 UNITS 25 MCG TAB PO SCH (21:00)
[2023-01-13] MEDS ORDERED: ATORVASTATIN 40 MG TAB PO SCH (21:00)
[2023-01-13] MEDS: HEPARIN SOD 5,000 UNIT/0.5 ML VIAL SQ SCH (21:03)
--- NOTE | 2023-01-14 05:25 | Electrocardiogram Report ---
Test Reason : Blood Pressure : / mmHG Vent. Rate : 082 BPM Atrial Rate : 094 BPM P-R Int : 194 ms QRS Dur : 124 ms QT Int : 386 ms P-R-T Axes : 073 -08 022 degrees QTc Int : 450 ms Poor data quality, interpretation may be adversely affected Sinus rhythm with marked sinus arrhythmia Right bundle branch block Abnormal ECG When compared with ECG of 16-SEP-2022 17:34, Premature atrial complexes are no longer Present HI interval has decreased Confirmed by Star Mclaughlin ([id number]) on 01/14/2023 5:25:10 AM Referred By: REFERRED SELF Confirmed By:Star Mclaughlin
[2023-01-14] MEDS: LEVOTHYROXINE SODIUM 75 MCG TABLET PO SCH (05:32)
--- NOTE | 2023-01-14 05:50 | Electrocardiogram Report ---
Test Reason : Blood Pressure : / mmHG Vent. Rate : 062 BPM Atrial Rate : 062 BPM P-R Int : 220 ms QRS Dur : 130 ms QT Int : 462 ms P-R-T Axes : -23 -27 001 degrees QTc Int : 468 ms Sinus rhythm with sinus arrhythmia with 1st degree A-V block Right bundle branch block Septal infarct , age undetermined Abnormal ECG When compared with ECG of 12-JAN-2023 18:52, Nonspecific T wave abnormality now evident in Inferior leads Confirmed by Star Mclaughlin ([id number]) on 01/14/2023 5:49:52 AM Referred By: REFERRED SELF Confirmed By:Star Mclaughlin
[2023-01-14 07:13] LABS: Hematocrit (blood only) 36.5 % (42.0-52.0); Hemoglobin 12.4 g/dl (14.0-18.0); Mean Corpuscular Hemoglobin 34.7 pg (25.0-34.0); Mean Corpuscular Volume 102.2 fL (80.0-100.0); Mean Platelet Volume 10.2 fL (9.4-12.4); Platelet Count 128 K/uL (130-400); RDW Coefficient of Variation 13.6 % (11.5-14.5); Red Blood Count 3.57 M/uL (4.70-6.10); White Blood Count 7.95 K/ul (4.8-10.8)
[2023-01-14 07:32] LABS: BUN Creatinine Ratio 16.9 (10-20); Calcium 9.5 mg/dl (8.6-10.3); Creatinine Clr Calc Pharmacy 34.3 ml/min; Est GFR (African American) 37.4 ml/min; Est GFR (Non-African American) 32.2 ml/min; Potassium 4.4 mmol/L (3.5-5.1)
--- NOTE | 2023-01-14 07:40 | Electrocardiogram Report ---
Test Reason : Blood Pressure : / mmHG Vent. Rate : 065 BPM Atrial Rate : 065 BPM P-R Int : 206 ms QRS Dur : 126 ms QT Int : 460 ms P-R-T Axes : 072 -36 -59 degrees QTc Int : 478 ms Normal sinus rhythm Left axis deviation Right bundle branch block Abnormal ECG Confirmed by Shen Hoover ([id number]) on 01/14/2023 7:40:03 AM Referred By: REFERRED SELF Confirmed By:Tomy Hoover
[2023-01-14] MEDS: ISOSORBIDE MONO EXTENDED REL 30 MG TABCR PO SCH (07:51)
[2023-01-14] MEDS: ASPIRIN 81 MG ECTAB PO SCH (07:51)
[2023-01-14] MEDS: traMADol HCL 50 MG TABLET PO SCH (07:51)
[2023-01-14] MEDS: LORazepam 0.5 MG TAB PO PRN (07:51)
[2023-01-14] MEDS: oxyBUTYnin chloride 5 MG TAB PO SCH (07:52)
[2023-01-14] MEDS: CLOPIDOGREL BISULFATE 75 MG TAB PO SCH (07:52)
[2023-01-14] MEDS: FAMOTIDINE 20 MG TAB PO SCH (07:52)
[2023-01-14] MEDS: PANTOprazole 40 MG TAB PO SCH (07:52)
[2023-01-14] MEDS: METOPROLOL SUCC 25MG EXT REL TAB PO SCH (07:52)
[2023-01-14] MEDS: allopurinoL 300 MG TAB PO SCH (07:52)
[2023-01-14] MEDS: UMECLIDINIUM/VILANTEROL 62.5/25MCG 7 PUFFS/INHALER INH SCH (07:53)
[2023-01-14] MEDS: FLUTICASONE FUROATE 200MCG 14 PUFFS/INHALER INH SCH (07:53)
[2023-01-14] MEDS: HEPARIN SOD 5,000 UNIT/0.5 ML VIAL SQ SCH (07:53)
--- NOTE | 2023-01-14 12:01 | Discharge Summary ---
Date of Service January 14, 2023 Admission HPI Per Admitting Provider A 77-year-old male with past medical history significant for CAD, history of rotational atherectomy and stent placement to the RCA in May 2017, staged PCI to LAD in 08/2017, recurrent chest pain with in-stent restenosis of RCA in 04/2019 with subsequent PCI, chronic kidney disease stage III, history of tobacco abuse with COPD, follows with pulmonary; GERD, history of Sepulveda's esophagus, hypertension, polyneuropathy, mild dementia, 3.5 cm infrarenal abdominal aortic aneurysm, history of infrarenal IVC filter in place, SVT versus PAF on zio patch 04/2022, right bundle-branch block, diagnosed in November 2022; bronchiectasis, asthma, hypertension, vitamin B12 deficiency, history of herpes simplex infection, moderate vascular dementia, anemia of chronic disease, generalized anxiety disorder, presents with chest pain. The patient says he started to have since afternoon chest discomfort right side, constant pain, moderate to severe in nature, no radiation. Has some nausea and abdominal discomfort, no headache. Has some dizziness. No cough, no fevers. Vision is not great, no runny nose, no sore throat. Generally at home he ambulates with cane, but when goes out his takes him in the wheelchair. is in the room. Currently, sitting in chair comfortably and hemodynamically stable. Currently, he does not have any chest pain. Hemodynamically stable. Admission Exam Per Admitting Provider GENERAL: The patient is of moderate build, not in acute distress. VITAL SIGNS: Temperature 36.8, pulse 69, respiratory rate 18, blood pressure 110/75, oxygen 96% on room air. HEENT: Pupils equal, round and reactive to light. Oral mucosa moist. NECK: No JVD, no neck masses. CARDIOVASCULAR: S1 and S2 heard. Regular rate and rhythm. No murmur, no gallop. RESPIRATORY SYSTEM: Normal AP diameter. No accessory muscle use. No wheezing or crackles. ABDOMEN: Soft, bowel sounds present, nontender, no distention. CENTRAL NERVOUS SYSTEM: Alert and oriented. Speech is clear. Obeys simple commands. Moves extremities. EXTREMITIES: No edema, no erythema seen. Principal Diagnosis Atypical chest pain Discharge Exam Constitutional + well hydrated and + obese; no acute distress Eyes PERRL, conjunctivae normal, anicteric sclerae ENMT external ear and nose normal, oropharynx normal Respiratory normal respiratory effort, lungs clear to auscultation Cardiovascular Rate/Rhythm: regular rate and regular rhythm S1 S2 Gastrointestinal (Abdomen) normal bowel sounds, soft, nontender, no hepatosplenomegaly Neurologic Patient had eyes closed. Opened eye to call. Answered his name Confused Discharge Data Allergies Allergy/AdvReac Type Severity Reaction Status Date / Time benzocaine Allergy Severe SLOUGHING Verified 01/12/23 21:39 OF SKIN clindamycin Allergy Intermediate RASH Verified 01/12/23 21:39 clobetasol Allergy Intermediate ITCHING Verified 01/12/23 21:39 cyanocobalamin (vitamin B12) Allergy Intermediate Rash Verified 01/12/23 21:39 doxycycline Allergy Intermediate RASH Verified 01/12/23 21:39 Penicillins Allergy Intermediate HIVES Verified 01/12/23 21:39 phenethylamine Allergy Intermediate Itching Verified 01/12/23 21:39 povidone-iodine Allergy Intermediate Hives Verified 01/12/23 21:39 [From Betadine] soap [From Betadine] Allergy Intermediate Hives Verified 01/12/23 21:39 tea tree Allergy Intermediate ITCHING Verified 01/12/23 21:39 Consultations 01/12/23 21:51 ED Decision to Admit Stat 01/13/23 08:00 Consult Cardiology Routine Ordered Studies 01/13/23 01:27 US venous doppler LE BI Urgent 01/13/23 13:21 US abdomen [US liver] Urgent Hospital Course (1) Chest pain: Patient's chest pain is atypical. EKG did not show any ACS. Troponin is mildly elevated in setting of CKD Echocardiogram reviewed. Recent outpatient stress test was negative Elocution Teacher evaluated. No ACS D-dimer is elevated but has been chronically elevated Unfortunately cannot get a CT PE. Perfusion scan did not show any large perfusion defect but questioned a subsegmental defect in RUL Considering no chest pain since resolution on admission, no tachycardia, no hypoxia, chronically elevated DDimer (last month CT PE was negative) and other clinical indicators do not support PE, suspicion for PE is very low LE venous Dopplers is negative. Per and chart review, patient has history of Sepulveda's esophagus and gall stones also reported that patient has been out of his pantoprazole for a few days. Atypical chest pain may be related to GERD CT abd from 09/2022 noted cholelithiasis RUQ USS this admission did not show acute abnormality or gall stones. LFTs were normal as well Continue Pepcid and pantoprazole. Script sent for pantoprazole also reported that patient's current confusion has been his baseline for some time now. Has been having declining cognitive function for some time. She states that he has neurology follow-up for further evaluation and work-up next month. Patient been confused throughout his stay, ranging between hyperactive to hypoactive states. Likely delirium (2) Chronic kidney disease: Patient has CKD 3. Avoid nephrotoxins (3) Hypothyroid: Continue levothyroxine Has prediabetes. Hemoglobin A1c 6.2 (4) History of coronary artery disease: Continue aspirin and Plavix Continue atorvastatin Continue Imdur (5) COPD (chronic obstructive pulmonary disease): Continue home inhalers Plan Updated They were at bedside. They will prefer to take him home CM provided resources Total Time Total Time Spent Total Time Spent (In Minutes): 55 Total Time Includes: Examination of the Patient, Discharge Planning, Medication Reconciliation and Other Discharge Plan Discharge Items Patient Disposition: Home - Home Health Services Reason For Visit: CHEST PAIN Discharge Diagnosis: Chest pain Activity: Resume your previous activity Non-emergency contact: Primary Care Provider Call non-emergency contact if: you have any medication questions Follow-up/Referrals: Jacob Jones MD [Primary Care Provider] - (Date & Time 01/19/2023 11:20 AM Provider Jacob Jones MD Department General Internal Medicine [facility] ) Diet: Heart Healthy Addtl Attending Provider Instructions: Mr Lorenzo You came to the hospital for chest pain. You were evaluated. Your chest pain is likely related to your stomach problems. Your pain is resolved now. Please ensure you take your pantoprazole and other medicines as prescribed. Please ensure follow up with your Doctors. It was a pleasure taking care of you. Pending Studies at Discharge: No Stand-Alone Forms: [employer], Smoking Cessation Medications and DC Order Prescriptions: Continued atorvastatin 80 mg tablet 80 mg PO QPM famotidine 20 mg tablet 20 mg PO QAM lorazepam 0.5 mg tablet 0.5 mg PO TID PRN (Reason: Anxiety) ferrous sulfate 325 mg (65 mg iron) Tablet 325 mg PO HS nitroglycerin 0.4 mg tablet, sublingual 1 tab Sublingual UD PRN (Reason: Angina) docusate sodium 100 mg Capsule 100 mg PO BID PRN (Reason: Constipation) metoprolol succinate 25 mg tablet extended release 24 hr 25 mg PO BID oxybutynin chloride 5 mg tablet 5 mg PO BID cholecalciferol (vitamin D3) [Vitamin D3] 2,000 unit Capsule 2,000 unit PO HS Combivent Respimat 20-100 mcg/actuation Mist 1 puff INHALATION QID PRN (Reason: Cough/WHEEZING) albuterol sulfate 2.5 mg /3 mL (0.083 %) Solution For Nebulization 2.5 mg INHALATION QID MDD 30 DOSES/MONTH PRN (Reason: Shortness Of Breath) clopidogrel [Plavix] 75 mg Tablet 75 mg PO QAM isosorbide mononitrate 30 mg tablet extended release 24 hr 30 mg PO QAM aspirin 81 mg Tablet,Delayed Release (Dr/Ec) 81 mg PO QAM valacyclovir 500 mg tablet 500 mg PO BID PRN (Reason: RECURRENT EPISODE) tramadol 50 mg tablet 50 mg PO BID cyanocobalamin (vitamin B-12) 1,000 mcg/mL solution 1,000 mcg subcut MONTHLY Rx Instructions: first of every month multivitamin Tablet 1 tab PO HS levothyroxine [Synthroid] 75 mcg Tablet 75 mcg PO QAM magnesium oxide 400 mg (241.3 mg magnesium) tablet 400 mg PO HS acetaminophen [Tylenol Extra Strength] 500 mg Tablet 1,000 mg PO Q8H PRN (Reason: Pain) allopurinol 300 mg tablet 300 mg PO DAILY Breztri Aerosphere 160-9-4.8 mcg/actuation HFA aerosol inhaler 2 inh INHALATION BID albuterol sulfate 90 mcg/actuation HFA aerosol inhaler 2 inha INH QID PRN (Reason: shortness of breath or wheezing) Qty: 6.7 0RF pantoprazole 40 mg Tablet,Delayed Release (Dr/Ec) 40 mg PO BID Qty: 60 0RF Krames/Other Patient Handouts: A1C, 5 Steps for Eating Healthier Admission Data Admit Date/Time: 01/12/23 23:10 Attending Provider: Grace Kaplan I. Admit Provider: Ciro Kramer Primary Care Provider: Jacob Jones Other Providers: Ciro Kramer ; Shaista Dee ; Alphonso Casanova ; Nikos Rodriguez ; José Miguel Joe ; Hai Canseco ; Jama Francois ; Vickey Small ; Vania Stout ; Jojo Zurita ; Shaista Wells ; Mendez Leslie ; Guzman Perez ; [facility] Other Interventions: Discharge Summary Assessment (RN) Last Done: 01/14/23 13:05
== END 2023-01-14 15:40 | disposition home health service (06) ==
LOC: 2S 18:41 → ED 18:41 → 2S 01-13 00:37

== ENCOUNTER 2023-02-10 11:32 | Inpatient (IN) ==
[2023-02-10] MEDS ORDERED: LORazepam 2 MG/1 ML VIAL IV STA ×2 (12:05→19:50)
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
[2023-02-10 13:46] LABS: Basophils # (auto) 0.03 K/uL (0-0.2); Basophils % (auto) 0.4 %; Eosinophils % (auto) 1.3 %; Hemoglobin 11.4 g/dl (14.0-18.0); Immature Granulocytes # (auto) 0.07 K/uL (0.01-0.20); Immature Granulocytes % (auto) 0.9 %; Lymphocytes # (auto) 0.93 K/uL (1.2-3.4); Lymphocytes % (auto) 11.7 %; Mean Corpuscular Hemoglobin 34.7 pg (25.0-34.0); Mean Corpuscular Hgb Conc 33.5 g/dL (32.0-36.0); Mean Corpuscular Volume 103.3 fL (80.0-100.0); Mean Platelet Volume 10.3 fL (9.4-12.4); Monocytes # (auto) 0.86 K/uL (0.11-0.59); Monocytes % (auto) 10.8 %; Neutrophils # (auto) 5.97 K/uL (1.40-6.50); Neutrophils % (auto) 74.9 %; Platelet Count 164 K/uL (130-400); RDW Coefficient of Variation 14.6 % (11.5-14.5); RDW Standard Deviation 55.7 fL (36.4-46.3); Red Blood Count 3.29 M/uL (4.70-6.10); White Blood Count 7.96 K/ul (4.8-10.8)
[2023-02-10 14:02] LABS: Albumin Globulin Ratio 1.4 (0.9-2); Albumin Level 3.7 gm/dl (3.4-5.0); Est GFR (African American) 38.3 ml/min; Est GFR (Non-African American) 33.1 ml/min; Globulin 2.6 gm/dl (2.5-4.0); Magnesium 1.8 mg/dl (1.7-2.4); Total Protein 6.3 gm/dl (6.0-8.3)
--- NOTE | 2023-02-10 14:02 | CT Scan Report ---
ABDOMEN AND PELVIS CT WITHOUT CONTRAST CT DOSE: 1382.63 mGy.cm HISTORY: Acute upper abdominal pain pain, upper TECHNIQUE: Multiaxial CT images of the abdomen and pelvis were performed without contrast. A dose lo wering technique was utilized adhering to the principles of ALARA. COMPARISON STUDY: Upper GI series 02/01/2023, CT 09/16/2022 FINDINGS: Limited study secondary to respiratory motion artifact and upper extremity positioning. Car diomegaly with extensive coronary artery calcifications. Lung bases are generally clear. No pneumatos is or pneumoperitoneum. Streak artifact from the hip arthroplasties limits evaluation of the pelvis. The unenhanced spleen, mildly atrophic pancreas and adrenal glands are within normal limits. Mild cho lelithiasis. Unremarkable liver. Mild cortical thinning of the kidneys. No hydronephrosis. Decompressed bladder with mild wall thicken ing. Atherosclerosis of the aorta. 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 Moderate sized hiatal hernia. Trace free fluid within the hernia sac. No bowel junction or bowel wal l thickening. Colonic diverticulosis. Normal appendix. No ascites or mesenteric inflammation. Ventral hernia within the midline pelvis is again noted containing mesenteric fat and nonobstructed loops of small bowel. No acute fracture identified. Likely benign peripherally sclerotic 4.2 cm lucent focus of the left iliac bone again noted. 40% L2 compression deformity without retropulsion, new from prior . IMPRESSION: 1. Limited exam as above. 2. No bowel obstruction or bowel wall thickening. 3. Moderate-sized hiatal hernia. 4. Colonic diverticulosis. 5. Cholelithiasis. 6. Ventral midline pelvic hernia again noted containing nonobstructive loops of small bowel. 7. Likely subacute L2 compression deformity without retropulsion, new from 09/16/2022. ACT 112: Negative or not required by law. The above report was generated using voice recognition software. It may contain grammatical, syntax o r spelling errors. Electronically signed by: Claudio Orourke M.D. 02/10/2023 2:01 PM
[2023-02-10 14:06] LABS: Troponin I High Sensitivity 23.1 pg/ml (0-20)
--- NOTE | 2023-02-10 15:35 | History & Physical Report ---
Date of Service February 10, 2023 Assessment & Plan (1) Abdominal pain: Plan: Patient is 77 y/o M with PMH CAD s/p PCI, stent, HTN, COPD, bronchiectasis, CKD III-IV, GERD, Sepulveda's esophagus, neuropathy, dementia, SVT versus paroxysmal atrial fibrillation, RBBB, and others listed below presented to ER with complaint of abdominal pain today. Unable to obtain accurate history from patient secondary to mental status In ER vitals stable. No leukocytosis, LFTs WNL CT abdomen pelvis: 1. Limited exam. 2. No bowel obstruction or bowel wall thickening. 3. Moderate-sized hiatal hernia. 4. Colonic diverticulosis. 5. Cholelithiasis. 6. Ventral midline pelvic hernia again noted containing nonobstructive loops of small bowel. 7. Likely subacute L2 compression deformity without retropulsion, new from 09/16/2022. When patient becomes more awake monitor for further abdominal pain, may need to consider additional imaging if necessary NPO for now Gentle IVF CBC, CMP in a.m. (2) Dementia: Plan: Seen by outpatient neurology today, Remeron was prescribed for bedtime In ER given IV Ativan and patient now somnolent Monitor for delirium Hold on further medications that can alter mental status including Remeron, tramadol, oxybutynin (3) Barretts esophagus: Plan: Continue PPI, H2 sabi (4) CAD (coronary artery disease): Plan: S/p PCI, stent Elevated troponin high-sensitivity troponin 23--> 26 (has been higher in prior admissions) Trend troponin, if troponins uptrending consider echo, cardiology consult Continue aspirin, Plavix, isosorbide, metoprolol succinate, atorvastatin (5) Hypertension: Plan: Continue metoprolol succinate (6) Chronic kidney disease: Plan: CKD III-IV Cr:1.9. Baseline~2 Monitor renal functions, avoid nephrotoxic agents when possible (7) COPD (chronic obstructive pulmonary disease): Plan: History COPD/bronchiectasis Continue home inhalers Albuterol as needed Continue home 2 L oxygen at bedtime (8) Chronic anemia: Plan: Hgb: 11.4, baseline ~12 Monitor H&H (9) Hypothyroid: Plan: Continue levothyroxine (10) Gout: Plan: Continue allopurinol (11) PAF (paroxysmal atrial fibrillation): Plan: History paroxysmal atrial fibrillation versus SVT seen on prior gambling monitor Continue metoprolol succinate DVT Prophylaxis Lovenox SQ Full Code as per discussion with pt Follows with Dr Jones for routine care Pt was seen and care coordinated with Dr Najera. See addendum I spent a total of 85 minutes reviewing notes, outpatient records, labs, medication, coordinating, documenting and providing care for this patient excluding time spent in the performance of separately billed services. History of Present Illness Chief Complaint: Abdominal pain Primary Care Provider: Jacob Jones MD Patient is 77 y/o M with PMH CAD s/p PCI, stent, HTN, COPD, bronchiectasis, CKD III-IV, GERD, Sepulveda's esophagus, neuropathy, dementia, SVT versus paroxysmal atrial fibrillation, RBBB, and others listed below presented to ER with complaint of abdominal pain today. Limited history obtained from patient secondary to mental status. Additional history obtained from chart review and patient's . reports that today patient had neurology appointment to discuss dementia. Reports patient's dementia symptoms have progressed and has been paranoid, acting out, delusions, visual hallucinations. He was prescribed Seroquel 25mg HS to start today. reports patient at baseline mental status today, however was given Ativan in ER and is now somnolent. She reports that they were leaving doctor's office and getting patient in car. Patient wanted to sit in the backseat. States had hard time getting patient in the backseat and when he got in the backseat he was complaining of abdominal pain. Family reports he was pointing to his lower abdomen as site of pain and seemed to be in significant pain. There is report to the ER provider that patient may have had syncopal episode however does not state that that his provider. Patient was brought to ER secondary to abdominal pain. Upon arrival to ER it is reported patient was noncooperative and patient was given 1 mg Ativan and work-up was obtained. denies any known fever, chills, nausea, vomiting, diarrhea. She reports she sometimes gets patient stool softeners for constipation however states patient had a bowel movement yesterday. Denies patient complaining of HAs, or chest pain recently. Chronic COPD and uses nebs daily but denies any acute SOB or worsening cough, extremity edema, hematuria, dysuria, melena, hematochezia. Allergies Allergy/AdvReac Type Severity Reaction Status Date / Time benzocaine Allergy Severe SLOUGHING Verified 01/12/23 21:39 OF SKIN clindamycin Allergy Intermediate RASH Verified 01/12/23 21:39 clobetasol Allergy Intermediate ITCHING Verified 01/12/23 21:39 cyanocobalamin (vitamin B12) Allergy Intermediate Rash Verified 01/12/23 21:39 doxycycline Allergy Intermediate RASH Verified 01/12/23 21:39 Penicillins Allergy Intermediate HIVES Verified 01/12/23 21:39 phenethylamine Allergy Intermediate Itching Verified 01/12/23 21:39 povidone-iodine Allergy Intermediate Hives Verified 01/12/23 21:39 [From Betadine] soap [From Betadine] Allergy Intermediate Hives Verified 01/12/23 21:39 tea tree Allergy Intermediate ITCHING Verified 01/12/23 21:39 lorazepam [From Ativan] AdvReac Mild Confusion Verified 02/10/23 17:19 Home Medications Medication Instructions Recorded Confirmed Type atorvastatin 80 mg tablet 80 mg PO QPM 06/14/18 02/10/23 History cholecalciferol (vitamin D3) 50 2,000 unit PO HS 06/14/18 02/10/23 History mcg (2,000 unit) capsule (Vitamin D3) docusate sodium 100 mg capsule 100 mg PO BID PRN Constipation 06/14/18 02/10/23 History famotidine 20 mg tablet 20 mg PO BID 06/14/18 02/10/23 History ipratropium 20 mcg-albuterol 100 1 puff inhalation QID PRN 06/14/18 02/10/23 History mcg/actuation mist for inhalation Cough/WHEEZING (Combivent Respimat) metoprolol succinate 25 mg 25 mg PO BID 06/14/18 02/10/23 History tablet,extended release 24 hr nitroglycerin 0.4 mg sublingual 1 tab sublingual UD PRN Angina 06/14/18 02/10/23 History tablet oxybutynin chloride 5 mg tablet 5 mg PO BID 06/14/18 02/10/23 History albuterol sulfate 2.5 mg/3 mL 2.5 mg inhalation QID PRN 01/07/19 02/10/23 History (0.083 %) solution for nebulization Shortness Of Breath clopidogrel 75 mg tablet (Plavix) 75 mg PO QAM 11/03/19 02/10/23 History isosorbide mononitrate 30 mg 30 mg PO QAM 01/28/20 02/10/23 History tablet,extended release 24 hr aspirin 81 mg tablet,delayed 81 mg PO QAM 09/18/20 02/10/23 History release cyanocobalamin (vitamin B-12) 1,000 mcg subcut MONTHLY 09/18/20 02/10/23 History 1,000 mcg/mL injection solution tramadol 50 mg tablet 50 mg PO Q12 PRN Pain 09/18/20 02/10/23 History valacyclovir 500 mg tablet 500 mg PO BID PRN RECURRENT EPISODE 09/18/20 02/10/23 History levothyroxine 75 mcg tablet 75 mcg PO QAM 09/09/21 02/10/23 History (Synthroid) magnesium oxide 400 mg (241.3 mg 400 mg PO HS 09/09/21 02/10/23 History magnesium) tablet multivitamin 1 tab PO HS 09/09/21 02/10/23 History allopurinol 300 mg tablet 300 mg PO PM 12/04/22 02/10/23 History pantoprazole 40 mg tablet,delayed 40 mg PO BID #60 tabs 01/14/23 02/10/23 Rx release arformoterol 15 mcg/2 mL solution 2 ml inhalation BID 02/10/23 02/10/23 History for nebulization budesonide 0.5 mg/2 mL suspension 0.25 mg inhalation BID 02/10/23 02/10/23 History for nebulization calcium carbonate 200 mg calcium 400 mg PO BID PRN Acid Reflux 02/10/23 02/10/23 History (500 mg) chewable tablet (Tums) gabapentin 300 mg capsule 300 mg PO HS 02/10/23 02/10/23 History lanolin alcohols-mineral 1 applic topical DAILY PRN Dry Skin 02/10/23 02/10/23 History oil-w.petrolatum-ceresin topical cream (Eucerin topical cream) melatonin 5 mg tablet 5 mg PO HS 02/10/23 02/10/23 History quetiapine 25 mg tablet 25 - 50 mg PO HS 02/10/23 02/10/23 History triamcinolone acetonide 0.1 % 1 applic topical BID PRN flare up 02/10/23 02/10/23 History topical cream Past Med/Surg History Medical History (Updated 02/10/23 @ 19:34 by Danielle Smith PA-C) Anxiety Aortic aneurysm stable 3cm; pcp monitors Barretts esophagus Blood clotting disorder pt unable to verify Chronic anemia Chronic back pain Chronic kidney disease, stage 3 COPD (chronic obstructive pulmonary disease) inhalers and nebulizers daily Coronary artery disease Diverticular disease GERD (gastroesophageal reflux disease) Gout Gracie filter in place Hearing deficit Hyperlipidemia Hypertension Idiopathic neuropathy Myocardial Infarction 2016--follows with Dr. Edilberto Hammer Nocturnal hypoxemia On home oxygen therapy 2.5L N/C at HS Osteoarthritis Poor historian Prostate cancer sx Recurrent genital herpes simplex (Unknown) Sciatica Sleep apnea oxygen at night Temporomandibular joint disorder Surgical History History of arthroscopic knee surgery History of bilateral cataract extraction History of cardiac cath x5--last 2018 History of colonoscopy History of esophagogastroduodenoscopy (EGD) History of heart artery stent multiple--last 2018 11/2 to restenosis History of hernia repair epigastric History of left shoulder replacement History of lumbar surgery History of mandibular surgery tmj repair History of prostate biopsy malignant History of prostatectomy History of right inguinal hernia repair History of right shoulder replacement History of tooth extraction all teeth removed Status post correction of deviated nasal septum Status post total hip replacement, bilateral Family History Other Family history not known due to adoption Social History Smoking Status: Former smoker Tobacco Type: Cigarettes Second Hand Exposure: No; Do You Dip or Chew Tobacco: No; Hx Alcohol Use: No Hx Substance Use: No Preferred Language: Filipino Communication Ability: Impaired Vending Technician Required: No Beliefs That Will Affect Care: None marital status: Current Living Situation: Spouse Current Living Situation Comment: lives with and son current occupational status: retired How many Children do You have: 4 Feels Safe at Home: Yes Assistive Devices: Cane and Wheelchair Review of Systems Review of Systems: Unobtainable due to cognitive status Physical Exam Physical Exam: General: no acute distress, currently somnolent after receiving IV Ativan in ER, WDWN Head: normocephalic, atraumatic Eyes: PERRL, EOM's intact, conjunctiva non-injected, anicteric ENT: normal inspection external ears, nose, mucous membranes moist Neck: supple, trachea midline Lungs: clear, no respiratory distress, no wheezing/rhonchi/rales CV: RRR, no murmur, no pretibial edema Abd: protuberant, normal BS, soft, no apparent tenderness to palpation Ext: no cyanosis, no calf tenderness Neuro: +somnolent Skin: warm, dry Results & Data Results & Data Vital Signs (Past 12 Hours) Vital Signs Temp Pulse Pulse Resp BP BP Pulse Ox 02/10/23 13:32 68 18 138/86 92 02/10/23 11:49 68 02/10/23 11:47 37 C 70 18 144/91 H 95 02/10/23 11:38 37 C 73 18 144/91 H 93 O2 Del Method 02/10/23 13:32 Room Air 02/10/23 11:49 02/10/23 11:47 Room Air 02/10/23 11:38 Room Air Laboratory Results Short CBC 02/10/23 Range/Units 13:15 WBC 7.96 (4.8-10.8) K/ul Hgb 11.4 L (14.0-18.0) g/dl Hct 34.0 L (42.0-52.0) % Plt Count 164 (130-400) K/uL BMP 02/10/23 13:15 Sodium 142 Potassium 4.0 Chloride 109 H Carbon Dioxide 24 BUN 21 Creatinine 1.91 H Glucose 102 H Calcium 9.0 Liver Function 02/10/23 Range/Units 13:15 Total Bilirubin 1.0 (0.2-1.0) mg/dl AST 16 (13-39) U/L ALT 15 (7-52) U/L Alkaline Phosphatase 72 (34-104) U/L Albumin 3.7 (3.4-5.0) gm/dl Diagnostic Findings Abdomen/Pelvis CT 02/10/23 12:[address] WITHOUT CONTRAST CT DOSE: 1382.63 mGy.cm HISTORY: Acute upper abdominal pain pain, upper TECHNIQUE: Multiaxial CT images of the abdomen and pelvis were performed without contrast. A dose lowering technique was utilized adhering to the principles of ALARA. COMPARISON STUDY: Upper GI series 02/01/2023, CT 09/16/2022 FINDINGS: Limited study secondary to respiratory motion artifact and upper extremity positioning. Cardiomegaly with extensive coronary artery calcifications. Lung bases are generally clear. No pneumatosis or pneumoperitoneum. Streak artifact from the hip arthroplasties limits evaluation of the pelvis. The unenhanced spleen, mildly atrophic pancreas and adrenal glands are within normal limits. Mild cholelithiasis. Unremarkable liver. Mild cortical thinning of the kidneys. No hydronephrosis. Decompressed bladder with mild wall thickening. Atherosclerosis of the aorta. 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 Moderate sized hiatal hernia. Trace free fluid within the hernia sac. No bowel junction or bowel wall thickening. Colonic diverticulosis. Normal appendix. No ascites or mesenteric inflammation. Ventral hernia within the midline pelvis is again noted containing mesenteric fat and nonobstructed loops of small bowel. No acute fracture identified. Likely benign peripherally sclerotic 4.2 cm lucent focus of the left iliac bone again noted. 40% L2 compression deformity without retropulsion, new from prior. IMPRESSION: 1. Limited exam as above. 2. No bowel obstruction or bowel wall thickening. 3. Moderate-sized hiatal hernia. 4. Colonic diverticulosis. 5. Cholelithiasis. 6. Ventral midline pelvic hernia again noted containing nonobstructive loops of small bowel. 7. Likely subacute L2 compression deformity without retropulsion, new from 09/16/2022. ACT 112: Negative or not required by law. The above report was generated using voice recognition software. It may contain grammatical, syntax or spelling errors. Electronically signed by: Claudio Orourke M.D. 02/10/2023 2:01 PM ECG Rhythm: sinus rhythm Findings: + RBBB Supervising Physician Co-Signing Physician Notes I have seen and examined the patient and have discussed the case with the provider above. I agree with the assessment and plan as stated with the following exceptions. Patient is a 77-year-old man who presented to the ER after passing out in the parking lot of the [facility] neurology clinic in the backseat of his car. There was a report of abdominal pain and he had been having ongoing abdominal issues for the past several months according to family. The patient was confused and disoriented and demonstrated agitation. He appears to have dementia. A CAT scan of the abdomen pelvis revealed no significant acute pathology and blood work revealed just chronic CKD. There was no clear cause of syncope with considerations that it may have been related to pain or possible occult arrhythmia. The patient was given Ativan for his agitation and became somnolent .As a result he was admitted for further evaluation monitoring. A few hours later the ER nurse noted the patient was laying on his stomach and was naked pulling at the top of his bed. She attempted to get the patient to lay back down and the patient pulled himself up in the bed and then got to his knees attempting to crawl further up the bed. Patient became increasingly agitated drawing more staff into the room. The patient was ripping his blood pressure cuff off and pulse ox off and was grabbing and punching the ER nurse and tach. As a result of the poor reaction to Ativan earlier in the day the patient was given Zyprexa 5 mg IM in the left gluteal area. Security was required at the bedside while administration was done and with transferring up to the floor. He is currently appears calm but is still wide-eyed and not answering questions. He is still naked but is no longer pulling off his clothes or medical devices. Telemetry monitoring is hooked to his back. He is with a one-to-one. Physical exam was not performed secondary to the recent erratic behavior. Overall he is a well-nourished well-developed man who appears as noted above. Work-up today reveals a CBC with anemia. H&H is 11.434 which was previously 12.436 last month. Anemia is microcytic with an MCV of 104. There is evidence of CKD on BMP but is otherwise normal. Creatinine is 1.91 today. Liver function tests are normal and with history of gallstones and abdominal pain th ere is a normal bilirubin and LFTs and alk phos, which are reassuring there is no obstruction at this time. Although troponin is elevated at 26 this is come down from previous test last month where it was 40. Lipase is normal. Urinalysis was not performed. Abdominal and pelvis CT as above. Notably upper GI series was ordered by [facility] gastroenterology approximately 1 week ago revealing silent aspiration. 1. Dementia with agitation 2. Toxic encephalopathy versus delirium 3. Abdominal pain 4. Possible syncope 5. CKD stage III At this point it is very difficult to do further work-up or help the patient with his recent abdominal pain given his level of agitation and combativeness. Recommend continuing to redirect and medicate as needed to keep him calm overnight and reassess in the morning. For now there is no clear cause of syncope or abdominal pain. We will attempt urine studies when the patient is more calm including a urinalysis and a tox screen. DO Reinaldo (1) Abdominal pain Abdominal location: generalized Qualified Code(s): R10.84 - Generalized abdominal pain (2) Dementia Dementia type: unspecified type (5) Hypertension Hypertension type: unspecified Qualified Code(s): I10 - Essential (primary) hypertension (6) Chronic kidney disease Chronic kidney disease stage: unspecified stage Qualified Code(s): N18.9 - Chronic kidney disease, unspecified
[2023-02-10] MEDS ORDERED: OLANZapine 10 MG/2.1 ML SDV IM ONE (20:01)
[2023-02-10] MEDS ORDERED: ALBUTEROL 0.083% NEBU SOLN 3 ML VIAL NEB PRN (21:09)
[2023-02-10] MEDS ORDERED: SODIUM CHLORIDE 0.9% 1000ML 1,000 ML IV SCH (21:09)
[2023-02-10] MEDS ORDERED: POLYETHYLENE (MIRALAX) 17 GM PACK PO PRN (21:09)
[2023-02-10] MEDS: CHOLECALCIFEROL 1,000 UNITS 25 MCG TAB PO SCH (22:13)
[2023-02-10] MEDS: ATORVASTATIN 40 MG TAB PO SCH (22:13)
[2023-02-10] MEDS: ENOXAPARIN INJ 40 MG/0.4 ML SYR SQ SCH (22:13)
[2023-02-10] MEDS: allopurinoL 300 MG TAB PO SCH (22:13)
[2023-02-10] MEDS: GABAPENTIN 300 MG CAP PO SCH (22:13)
[2023-02-10] MEDS: FAMOTIDINE 20 MG TAB PO SCH (22:13)
[2023-02-10] MEDS: BUDESONIDE 0.5 MG/2 ML VIAL (PULMICORT) INH SCH (22:13)
[2023-02-10] MEDS: PANTOprazole 40 MG TAB PO SCH (22:14)
[2023-02-10] MEDS: METOPROLOL SUCC 25MG EXT REL TAB PO SCH (22:14)
[2023-02-10] MEDS: MAGNESIUM OXIDE 400 MG TAB PO SCH (22:14)
[2023-02-10] MEDS: FORMOTEROL 20 MCG/2 ML VIAL INH SCH (22:42)
[2023-02-10] MEDS: MELATONIN 3 MG TAB PO PRN (23:50)
[2023-02-11] MEDS: OLANZapine 10 MG/2.1 ML SDV IM PRN (02:19)
[2023-02-11] MEDS: LEVOTHYROXINE SODIUM 75 MCG TABLET PO SCH (06:17)
--- NOTE | 2023-02-11 07:00 | Electrocardiogram Report ---
Test Reason : Blood Pressure : / mmHG Vent. Rate : 069 BPM Atrial Rate : 069 BPM P-R Int : 206 ms QRS Dur : 128 ms QT Int : 454 ms P-R-T Axes : 061 -18 -55 degrees QTc Int : 486 ms Sinus rhythm with Premature atrial complexes Right bundle branch block Nonspecific ST abnormality Abnormal ECG When compared with ECG of 14-JAN-2023 05:26, Premature atrial complexes are now Present Confirmed by Star Mclaughlin ([id number]) on 02/11/2023 6:59:41 AM Referred By: Confirmed By:Star Mclaughlin
[2023-02-11] MEDS: FORMOTEROL 20 MCG/2 ML VIAL INH SCH ×2 (07:34→18:58)
[2023-02-11] MEDS: BUDESONIDE 0.5 MG/2 ML VIAL (PULMICORT) INH SCH ×2 (07:34→18:58)
[2023-02-11 07:48] LABS: Hematocrit (blood only) 35.2 % (42.0-52.0); Hemoglobin 11.7 g/dl (14.0-18.0); Mean Corpuscular Hemoglobin 34.5 pg (25.0-34.0); Mean Corpuscular Hgb Conc 33.2 g/dL (32.0-36.0); Mean Corpuscular Volume 103.8 fL (80.0-100.0); Mean Platelet Volume 10.2 fL (9.4-12.4); Platelet Count 164 K/uL (130-400); RDW Coefficient of Variation 14.6 % (11.5-14.5); RDW Standard Deviation 55.5 fL (36.4-46.3); Red Blood Count 3.39 M/uL (4.70-6.10); White Blood Count 8.54 K/ul (4.8-10.8)
[2023-02-11 08:05] LABS: Albumin Globulin Ratio 1.4 (0.9-2); Albumin Level 3.6 gm/dl (3.4-5.0); BUN Creatinine Ratio 11.9 (10-20); Calcium 9.3 mg/dl (8.6-10.3); Creatinine Clr Calc Pharmacy 42.2 ml/min; Est GFR (African American) 47.5 ml/min; Est GFR (Non-African American) 40.9 ml/min; Globulin 2.6 gm/dl (2.5-4.0); Potassium 3.7 mmol/L (3.5-5.1); Total Protein 6.2 gm/dl (6.0-8.3)
[2023-02-11] MEDS: PANTOprazole 40 MG TAB PO SCH ×2 (08:37→21:57)
[2023-02-11] MEDS: ASPIRIN 81 MG ECTAB PO SCH (08:38)
[2023-02-11] MEDS: FAMOTIDINE 20 MG TAB PO SCH ×2 (08:39→21:56)
[2023-02-11] MEDS: CLOPIDOGREL BISULFATE 75 MG TAB PO SCH (08:39)
[2023-02-11] MEDS: ISOSORBIDE MONO EXTENDED REL 30 MG TABCR PO SCH (08:39)
[2023-02-11] MEDS: METOPROLOL SUCC 25MG EXT REL TAB PO SCH ×2 (08:40→21:57)
--- NOTE | 2023-02-11 15:54 | Hospitalist Progress Note ---
Date of Service February 11, 2023 Assessment & Plan (1) Abdominal pain: Plan: Patient is 77 y/o M with PMH CAD s/p PCI, stent, HTN, COPD, bronchiectasis, CKD III-IV, GERD, Sepulveda's esophagus, neuropathy, dementia, SVT versus paroxysmal atrial fibrillation, RBBB, and others listed below presented to ER with complaint of abdominal pain In ER vitals stable. No leukocytosis, LFTs WNL CT abdomen pelvis: 1. Limited exam. 2. No bowel obstruction or bowel wall thickening. 3. Moderate-sized hiatal hernia. 4. Colonic diverticulosis. 5. Cholelithiasis. 6. Ventral midline pelvic hernia again noted containing nonobstructive loops of small bowel. 7. Likely subacute L2 compression deformity without retropulsion, new from 09/16/2022. Continue on Protonix twice daily. Monitor for abdominal pain. (2) Dementia: (3) Behavioural problem: Plan: Seen by outpatient neurology on the day of the admission. Recommended Seroquel 25 at bedtime. Zyprexa as needed One-to-one observer as needed Restraint if needed. (4) Barretts esophagus: Plan: Continue PPI, H2 sabi (5) CAD (coronary artery disease): Plan: S/p PCI, stent Elevated troponin high-sensitivity troponin 23--> 26 (has been higher in prior admissions) Continue aspirin, Plavix, isosorbide, metoprolol succinate, atorvastatin (6) Hypertension: Plan: Continue metoprolol succinate (7) Chronic kidney disease: Plan: CKD III-IV Cr:1.6. Baseline~2 Monitor renal functions, avoid nephrotoxic agents when possible (8) COPD (chronic obstructive pulmonary disease): Plan: History COPD/bronchiectasis Continue home inhalers Albuterol as needed Continue home 2 L oxygen at bedtime (9) Chronic anemia: Plan: Hgb: 11.4, baseline ~12 Monitor H&H (10) Hypothyroid: Plan: Continue levothyroxine (11) Gout: Plan: Continue allopurinol (12) PAF (paroxysmal atrial fibrillation): Plan: History paroxysmal atrial fibrillation versus SVT seen on prior cardiac technician Continue metoprolol succinate DVT Prophylaxis Lovenox SQ Full Code as per discussion with pt Follows with Dr Jones for routine care Discussed with son and at bedside. Time spent evaluating patient, direct bedside care, chart review, placing orders, interpretation of diagnostic studies, discussion with consultants, patient, and family members, as well as other required patient management activities is 60 minutes Please note the above document was generated using voice recognition software. It may contain grammatical, syntax or spelling errors. Any formal questions or concerns about the content, text or information contained within the body of this dictation should be directly addressed to the provider for clarification Admission and Anticipated Discharge Date Admission Date: February 10, 2023 Subjective Patient seen multiple times during the day. His and son were at the bedside when seen during the afternoon. Patient is agitated; trying to get out of the bed. Needed frequent reorientation's. Review of Systems Review of Systems: All systems reviewed & are unremarkable except as noted in Subjective Physical Exam Physical Exam: General: Agitated, not oriented to time place or person. Head: normocephalic, atraumatic Eyes: PERRL, EOM's intact, conjunctiva non-injected, anicteric ENT: normal inspection external ears, nose, mucous membranes moist Neck: supple, trachea midline Lungs: clear, no respiratory distress, no wheezing/rhonchi/rales CV: RRR, no murmur, no pretibial edema Abd: protuberant, normal BS, soft, no apparent tenderness to palpation Ext: no cyanosis, no calf tenderness Neuro: Moves all extremities Skin: warm, dry Results & Data Results & Data Vital Signs (Past 12 Hours) Vital Signs Temp Pulse Pulse Resp BP Pulse Ox O2 Del Method 02/11/23 10:44 37.5 C 71 18 159/94 H 94 Room Air 02/11/23 07:32 36.5 C 86 18 174/97 H 02/11/23 07:00 71 02/11/23 07:00 Room Air 02/11/23 04:30 36.7 C 66 18 176/95 H 94 Room Air Laboratory Results Laboratory Results WBC 8.54 K/ul (4.8-10.8) 02/11/23 06:51 RBC 3.39 M/uL (4.70-6.10) L 02/11/23 06:51 Hgb 11.7 g/dl (14.0-18.0) L 02/11/23 06:51 Hct 35.2 % (42.0-52.0) L 02/11/23 06:51 MCV 103.8 fL (80.0-100.0) H 02/11/23 06:51 MCH 34.5 pg (25.0-34.0) H 02/11/23 06:51 MCHC 33.2 g/dL (32.0-36.0) 02/11/23 06:51 RDW Std Deviation 55.5 fL (36.4-46.3) H 02/11/23 06:51 RDW Coeff of Zoë 14.6 % (11.5-14.5) H 02/11/23 06:51 Plt Count 164 K/uL (130-400) 02/11/23 06:51 MPV 10.2 fL (9.4-12.4) 02/11/23 06:51 Immature Gran % (Auto) 0.9 % 02/10/23 13:15 Neut % (Auto) 74.9 % 02/10/23 13:15 Lymph % (Auto) 11.7 % 02/10/23 13:15 [place] % (Auto) 10.8 % 02/10/23 13:15 Eos % (Auto) 1.3 % 02/10/23 13:15 Baso % (Auto) 0.4 % 02/10/23 13:15 Neut # (Auto) 5.97 K/uL (1.40-6.50) 02/10/23 13:15 Lymph # (Auto) 0.93 K/uL (1.2-3.4) L 02/10/23 13:15 [place] # (Auto) 0.86 K/uL (0.11-0.59) H 02/10/23 13:15 Eos # (Auto) 0.10 K/uL (0-0.50) 02/10/23 13:15 Baso # (Auto) 0.03 K/uL (0-0.2) 02/10/23 13:15 Immature Gran # (Auto) 0.07 K/uL (0.01-0.20) 02/10/23 13:15 Sodium 143 mmol/L (136-145) 02/11/23 06:51 Potassium 3.7 mmol/L (3.5-5.1) 02/11/23 06:51 Chloride 110 mmol/L (98-107) H 02/11/23 06:51 Carbon Dioxide 24 mmol/L (21-32) 02/11/23 06:51 Anion Gap 9 (3-11) 02/11/23 06:51 BUN 19 mg/dl (6-23) 02/11/23 06:51 Creatinine 1.60 mg/dl (0.6-1.4) H D 02/11/23 06:51 Est Cr Clr Drug Dosing 42.2 ml/min 02/11/23 06:51 Est GFR ( Amer) 47.5 ml/min 02/11/23 06:51 Est GFR (Non-Af Amer) 40.9 ml/min 02/11/23 06:51 BUN/Creatinine Ratio 11.9 (10-20) 02/11/23 06:51 Glucose 85 mg/dl (70-99(Fasting)) 02/11/23 06:51 POC Glucose 104 mg/dl (70-99) H 02/10/23 17:54 Calcium 9.3 mg/dl (8.6-10.3) 02/11/23 06:51 Magnesium 1.8 mg/dl (1.7-2.4) 02/10/23 13:15 Total Bilirubin 1.0 mg/dl (0.2-1.0) 02/11/23 06:51 AST 16 U/L (13-39) 02/11/23 06:51 ALT 14 U/L (7-52) 02/11/23 06:51 Alkaline Phosphatase 65 U/L (34-104) 02/11/23 06:51 Troponin I High Sens 26.1 pg/ml (0-20) H 02/10/23 22:33 Total Protein 6.2 gm/dl (6.0-8.3) 02/11/23 06:51 Albumin 3.6 gm/dl (3.4-5.0) 02/11/23 06:51 Globulin 2.6 gm/dl (2.5-4.0) 02/11/23 06:51 Albumin/Globulin Ratio 1.4 (0.9-2) 02/11/23 06:51 Lipase 23 U/L (11-82) 02/10/23 13:15 SARS-CoV-2, RNA, NAAT NEGATIVE (NEGATIVE) 02/10/23 13:00 Impressions Abdomen/Pelvis CT 02/10/23 12:[address] WITHOUT CONTRAST CT DOSE: 1382.63 mGy.cm HISTORY: Acute upper abdominal pain pain, upper TECHNIQUE: Multiaxial CT images of the abdomen and pelvis were performed without contrast. A dose lowering technique was utilized adhering to the principles of ALARA. COMPARISON STUDY: Upper GI series 02/01/2023, CT 09/16/2022 FINDINGS: Limited study secondary to respiratory motion artifact and upper extremity positioning. Cardiomegaly with extensive coronary artery calcifications. Lung bases are generally clear. No pneumatosis or pneumoperitoneum. Streak artifact from the hip arthroplasties limits evaluation of the pelvis. The unenhanced spleen, mildly atrophic pancreas and adrenal glands are within normal limits. Mild cholelithiasis. Unremarkable liver. Mild cortical thinning of the kidneys. No hydronephrosis. Decompressed bladder with mild wall thickening. Atherosclerosis of the aorta. 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 Moderate sized hiatal hernia. Trace free fluid within the hernia sac. No bowel junction or bowel wall thickening. Colonic diverticulosis. Normal appendix. No ascites or mesenteric inflammation. Ventral hernia within the midline pelvis is again noted containing mesenteric fat and nonobstructed loops of small bowel. No acute fracture identified. Likely benign peripherally sclerotic 4.2 cm lucent focus of the left iliac bone again noted. 40% L2 compression deformity without retropulsion, new from prior. IMPRESSION: 1. Limited exam as above. 2. No bowel obstruction or bowel wall thickening. 3. Moderate-sized hiatal hernia. 4. Colonic diverticulosis. 5. Cholelithiasis. 6. Ventral midline pelvic hernia again noted containing nonobstructive loops of small bowel. 7. Likely subacute L2 compression deformity without retropulsion, new from 09/16/2022. ACT 112: Negative or not required by law. The above report was generated using voice recognition software. It may contain grammatical, syntax or spelling errors. Electronically signed by: Claudio Orourke M.D. 02/10/2023 2:01 PM (1) Abdominal pain Abdominal location: generalized Qualified Code(s): R10.84 - Generalized abdominal pain (2) Dementia Dementia type: unspecified type (6) Hypertension Hypertension type: unspecified Qualified Code(s): I10 - Essential (primary) hypertension (7) Chronic kidney disease Chronic kidney disease stage: unspecified stage Qualified Code(s): N18.9 - Chronic kidney disease, unspecified
[2023-02-11] MEDS: SODIUM CHLOR 7% 4 ML NEB NEB SCH (18:58)
[2023-02-11] MEDS: ALBUTEROL 0.083% NEBU SOLN 3 ML VIAL NEB SCH (19:37)
[2023-02-11 20:10] LABS: Appearance Urine Clear (Clear); Bacteria Urine Automated 4+ (Negative); Bilirubin Urine Negative (Negative); Blood Urine 1+ (Negative); Color Urine Yellow; Epithelial Cell Urine Auto 0-5 /lpf (0-5); Glucose Urine UA Negative (Negative); Ketones Urine Trace (Negative); Leukocyte Esterase Urine 2+ (Negative); Nitrite Urine Positive (Negative); Protein Urine Negative (Negative); Specific Gravity Urine 1.014 (1.000-1.030); Urobilinogen Urine Negative (Negative); WBC Urine Automated >30 /hpf (0-5)
[2023-02-11 21:24] LABS: Amphetamines+Metham, Urine Neg (Neg); Barbiturates, Urine Neg (Neg); Benzodiazepine, Urine Neg (Neg); Cocaine, Urine Neg (Neg); MDMA (Ecstacy), Urine Neg (Neg); Methadone, Urine Neg (Neg); Opiate, Urine Neg (Neg); Phencyclidine, Urine Neg (Neg)
[2023-02-11] MEDS: CHOLECALCIFEROL 1,000 UNITS 25 MCG TAB PO SCH (21:56)
[2023-02-11] MEDS: ENOXAPARIN INJ 40 MG/0.4 ML SYR SQ SCH (21:56)
[2023-02-11] MEDS: allopurinoL 300 MG TAB PO SCH (21:56)
[2023-02-11] MEDS: ATORVASTATIN 40 MG TAB PO SCH (21:56)
[2023-02-11] MEDS: QUEtiapine FUMARATE 25 MG TABLET PO SCH (21:57)
[2023-02-11] MEDS: MAGNESIUM OXIDE 400 MG TAB PO SCH (21:57)
[2023-02-11] MEDS: GABAPENTIN 300 MG CAP PO SCH (21:57)
[2023-02-12] MEDS ORDERED: ACETAMINOPHEN 1,000 MG/100 ML VIAL IV STA (00:01)
[2023-02-12] MEDS ORDERED: HYDROmorphone INJ 0.5 MG/0.5 ML SYR IV STA (04:54)
[2023-02-12] MEDS: LEVOTHYROXINE SODIUM 75 MCG TABLET PO SCH (05:38)
[2023-02-12] MEDS: SODIUM CHLOR 7% 4 ML NEB NEB SCH ×3 (07:07→19:18)
[2023-02-12] MEDS: BUDESONIDE 0.5 MG/2 ML VIAL (PULMICORT) INH SCH ×3 (07:07→19:17)
[2023-02-12] MEDS: FORMOTEROL 20 MCG/2 ML VIAL INH SCH ×3 (07:07→19:17)
[2023-02-12] MEDS: ALBUTEROL 0.083% NEBU SOLN 3 ML VIAL NEB SCH ×2 (07:07→19:17)
[2023-02-12] MEDS: ACETAMINOPHEN 1,000 MG/100 ML VIAL IV PRN ×2 (07:57→23:58)
[2023-02-12] MEDS: FAMOTIDINE 20 MG TAB PO SCH ×2 (07:58→20:24)
[2023-02-12] MEDS: CLOPIDOGREL BISULFATE 75 MG TAB PO SCH (07:58)
[2023-02-12] MEDS: ISOSORBIDE MONO EXTENDED REL 30 MG TABCR PO SCH (07:58)
[2023-02-12] MEDS: ASPIRIN 81 MG ECTAB PO SCH (07:58)
[2023-02-12] MEDS: METOPROLOL SUCC 25MG EXT REL TAB PO SCH ×2 (07:59→20:25)
[2023-02-12] MEDS: PANTOprazole 40 MG TAB PO SCH ×2 (07:59→20:25)
[2023-02-12 09:05] LABS: Albumin Globulin Ratio 1.4 (0.9-2); Albumin Level 3.8 gm/dl (3.4-5.0); BUN Creatinine Ratio 11.7 (10-20); Bilirubin,Total 1.3 mg/dl (0.2-1.0); Calcium 9.5 mg/dl (8.6-10.3); Creatinine Clr Calc Pharmacy 41.8 ml/min; Est GFR (African American) 46.7 ml/min; Est GFR (Non-African American) 40.3 ml/min; Globulin 2.8 gm/dl (2.5-4.0); Potassium 3.8 mmol/L (3.5-5.1); Total Protein 6.6 gm/dl (6.0-8.3)
[2023-02-12 09:14] LABS: Hematocrit (blood only) 35.2 % (42.0-52.0); Hemoglobin 11.6 g/dl (14.0-18.0); Mean Corpuscular Volume 103.2 fL (80.0-100.0); Mean Platelet Volume 10.5 fL (9.4-12.4); Platelet Count 161 K/uL (130-400); RDW Coefficient of Variation 14.6 % (11.5-14.5); RDW Standard Deviation 55.3 fL (36.4-46.3); Red Blood Count 3.41 M/uL (4.70-6.10); White Blood Count 10.57 K/ul (4.8-10.8)
[2023-02-12 10:04] LABS: Basophils # (auto) 0.04 K/uL (0-0.2); Basophils % (auto) 0.4 %; Eosinophils # (auto) 0.06 K/uL (0-0.50); Eosinophils % (auto) 0.6 %; Immature Granulocytes # (auto) 0.04 K/uL (0.01-0.20); Immature Granulocytes % (auto) 0.4 %; Lymphocytes % (auto) 8.5 %; Monocytes # (auto) 1.54 K/uL (0.11-0.59); Monocytes % (auto) 14.6 %; Neutrophils # (auto) 7.99 K/uL (1.40-6.50); Neutrophils % (auto) 75.5 %
[2023-02-12] MEDS: cefTRIAXone SODIUM 2,000 MG in DEXTROSE 5% 50 ML IV SCH (10:19)
--- NOTE | 2023-02-12 14:00 | Hospitalist Progress Note ---
Date of Service February 12, 2023 Assessment & Plan (1) Abdominal pain: (2) UTI (urinary tract infection): Plan: Patient is 77 y/o M with PMH CAD s/p PCI, stent, HTN, COPD, bronchiectasis, CKD III-IV, GERD, Sepulveda's esophagus, neuropathy, dementia, SVT versus paroxysmal atrial fibrillation, RBBB, and others listed below presented to ER with complaint of abdominal pain In ER vitals stable. No leukocytosis, LFTs WNL CT abdomen pelvis: 1. Limited exam. 2. No bowel obstruction or bowel wall thickening. 3. Moderate-sized hiatal hernia. 4. Colonic diverticulosis. 5. Cholelithiasis. 6. Ventral midline pelvic hernia again noted containing nonobstructive loops of small bowel. 7. Likely subacute L2 compression deformity without retropulsion, new from 09/16/2022. Urine culture positive for gram-negative bacilli Started on ceftriaxone; blood culture ordered as patient was febrile today morning. We will follow-up on final results of culture and sensitivity. (3) Dementia: (4) Behavioural problem: Plan: Seen by outpatient neurology on the day of the admission. Recommended Seroquel 25 at bedtime. Zyprexa as needed One-to-one observer as needed Restraint if needed. (5) Barretts esophagus: Plan: Continue PPI, H2 sabi (6) CAD (coronary artery disease): Plan: S/p PCI, stent Elevated troponin high-sensitivity troponin 23--> 26 (has been higher in prior admissions) Continue aspirin, Plavix, isosorbide, metoprolol succinate, atorvastatin (7) Hypertension: Plan: Continue metoprolol succinate (8) Chronic kidney disease: Plan: CKD III-IV Cr:1.6. Baseline~2 Monitor renal functions, avoid nephrotoxic agents when possible (9) COPD (chronic obstructive pulmonary disease): Plan: History COPD/bronchiectasis Continue home inhalers Albuterol as needed Continue home 2 L oxygen at bedtime (10) Chronic anemia: Plan: Hemoglobin same as baseline. Monitor H&H (11) Hypothyroid: Plan: Continue levothyroxine (12) Gout: Plan: Continue allopurinol (13) PAF (paroxysmal atrial fibrillation): Plan: History paroxysmal atrial fibrillation versus SVT seen on prior monitoring analyst Continue metoprolol succinate DVT Prophylaxis Lovenox SQ Full Code as per discussion with pt Follows with Dr Jones for routine care Discussed with son and at bedside. Time spent evaluating patient, direct bedside care, chart review, placing orders, interpretation of diagnostic studies, discussion with consultants, patient, and family members, as well as other required patient management activities is 60 minutes Please note the above document was generated using voice recognition software. It may contain grammatical, syntax or spelling errors. Any formal questions or concerns about the content, text or information contained within the body of this dictation should be directly addressed to the provider for clarification Admission and Anticipated Discharge Date Admission Date: February 10, 2023 Subjective Patient seen and examined in the morning and afternoon. Patient intermittently agitated but did not require IM Zyprexa. Review of Systems Review of Systems: Unobtainable due to cognitive status Physical Exam Physical Exam: General: Lethargic but awakened by voice. Head: normocephalic, atraumatic Eyes: PERRL, EOM's intact, conjunctiva non-injected, anicteric ENT: normal inspection external ears, nose, mucous membranes moist Neck: supple, trachea midline Lungs: clear, no respiratory distress, no wheezing/rhonchi/rales CV: RRR, no murmur, no pretibial edema Abd: protuberant, normal BS, soft, no apparent tenderness to palpation Ext: no cyanosis, no calf tenderness Neuro: Moves all extremities Skin: warm, dry Results & Data Results & Data Vital Signs (Past 12 Hours) Vital Signs Temp Pulse Pulse Resp BP BP Pulse Ox 02/12/23 12:02 36.1 C L 78 162/76 H 94 02/12/23 09:00 71 02/12/23 08:16 38.2 C H 75 19 122/77 97 02/12/23 08:00 O2 Del Method 02/12/23 12:02 Room Air 02/12/23 09:00 02/12/23 08:16 Room Air 02/12/23 08:00 Room Air Laboratory Results Laboratory Results WBC 10.57 K/ul (4.8-10.8) 02/12/23 08:23 RBC 3.41 M/uL (4.70-6.10) L 02/12/23 08:23 Hgb 11.6 g/dl (14.0-18.0) L 02/12/23 08:23 Hct 35.2 % (42.0-52.0) L 02/12/23 08: MCV 103.2 fL (80.0-100.0) H 02/12/23 08: MCH 34.0 pg (25.0-34.0) 02/12/23 08: MCHC 33.0 g/dL (32.0-36.0) 02/12/23 08: RDW Std Deviation 55.3 fL (36.4-46.3) H 02/12/23 08: RDW Coeff of Zoë 14.6 % (11.5-14.5) H 02/12/23 08: Plt Count 161 K/uL (130-400) 02/12/23 08: MPV 10.5 fL (9.4-12.4) 02/12/23 08: Immature Gran % (Auto) 0.4 % 02/12/23 08: Neut % (Auto) 75.5 % 02/12/23 08: Lymph % (Auto) 8.5 % 02/12/23 08:23 [place] % (Auto) 14.6 % 02/12/23 08:23 Eos % (Auto) 0.6 % 02/12/23 08: Baso % (Auto) 0.4 % 02/12/23 08: Neut # (Auto) 7.99 K/uL (1.40-6.50) H 02/12/23 08:23 Lymph # (Auto) 0.90 K/uL (1.2-3.4) L 02/12/23 08: [place] # (Auto) 1.54 K/uL (0.11-0.59) H 02/12/23 08: Eos # (Auto) 0.06 K/uL (0-0.50) 02/12/23 08: Baso # (Auto) 0.04 K/uL (0-0.2) 02/12/23 08: Immature Gran # (Auto) 0.04 K/uL (0.01-0.20) 02/12/23 08:23 Sodium 141 mmol/L (136-145) 02/12/23 08: Potassium 3.8 mmol/L (3.5-5.1) 02/12/23 08:23 Chloride 107 mmol/L (98-107) 02/12/23 08:23 Carbon Dioxide 25 mmol/L (21-32) 02/12/23 08:23 Anion Gap 9 (3-11) 02/12/23 08:23 BUN 19 mg/dl (6-23) 02/12/23 08:23 Creatinine 1.62 mg/dl (0.6-1.4) H 02/12/23 08:23 Est Cr Clr Drug Dosing 41.8 ml/min 02/12/23 08:23 Est GFR ( Amer) 46.7 ml/min 02/12/23 08:23 Est GFR (Non-Af Amer) 40.3 ml/min 02/12/23 08:23 BUN/Creatinine Ratio 11.7 (10-20) 02/12/23 08:23 Glucose 105 mg/dl (70-99(Fasting)) H 02/12/23 08:23 POC Glucose 104 mg/dl (70-99) H 02/10/23 17:54 Calcium 9.5 mg/dl (8.6-10.3) 02/12/23 08:23 Magnesium 1.8 mg/dl (1.7-2.4) 02/10/23 13:15 Total Bilirubin 1.3 mg/dl (0.2-1.0) H 02/12/23 08:23 AST 20 U/L (13-39) 02/12/23 08:23 ALT 14 U/L (7-52) 02/12/23 08:23 Alkaline Phosphatase 61 U/L (34-104) 02/12/23 08:23 Troponin I High Sens 26.1 pg/ml (0-20) H 02/10/23 22:33 Total Protein 6.6 gm/dl (6.0-8.3) 02/12/23 08:23 Albumin 3.8 gm/dl (3.4-5.0) 02/12/23 08:23 Globulin 2.8 gm/dl (2.5-4.0) 02/12/23 08:23 Albumin/Globulin Ratio 1.4 (0.9-2) 02/12/23 08:23 Lipase 23 U/L (11-82) 02/10/23 13:15 Urine Color Yellow 02/11/23 19:56 Urine Appearance Clear (Clear) 02/11/23 19:56 Urine pH 7.0 (4.5-7.5) 02/11/23 19:56 Ur Specific [place] 1.014 (1.000-1.030) 02/11/23 19:56 Urine Protein Negative (Negative) 02/11/23 19:56 Urine Glucose (UA) Negative (Negative) 02/11/23 19:56 Urine Ketones Trace (Negative) H 02/11/23 19:56 Urine Blood 1+ (Negative) H 02/11/23 19:56 Urine Nitrite Positive (Negative) A 02/11/23 19:56 Urine Bilirubin Negative (Negative) 02/11/23 19:56 Urine Urobilinogen Negative (Negative) 02/11/23 19:56 Ur Leukocyte Esterase 2+ (Negative) H 02/11/23 19:56 Urine WBC (Auto) >30 /hpf (0-5) H 02/11/23 19:56 Urine RBC (Auto) 5-10 /hpf (0-4) H 02/11/23 19:56 U Hyaline Cast (Auto) 10-30 /lpf (0-5) H 02/11/23 19:56 U Epithel Cells (Auto) 0-5 /lpf (0-5) 02/11/23 19:56 Urine Bacteria (Auto) 4+ (Negative) H 02/11/23 19:56 Urine Opiates Screen Neg (Neg) 02/11/23 19:56 Ur Methadone, Qual Neg (Neg) 02/11/23 19:56 Urine Barbiturates Neg (Neg) 02/11/23 19:56 Ur Phencyclidine (PCP) Neg (Neg) 02/11/23 19:56 U Amphetamin/Meth Scrn Neg (Neg) 02/11/23 19:56 MDMA (Ecstasy) Screen Neg (Neg) 02/11/23 19:56 U Benzodiazepines Scrn Neg (Neg) 02/11/23 19:56 Ur Cocaine Metabolite Neg (Neg) 02/11/23 19:56 U Marijuana (THC) Screen Neg (Neg) 02/11/23 19:56 SARS-CoV-2, RNA, NAAT NEGATIVE (NEGATIVE) 02/10/23 13:00 Impressions Abdomen/Pelvis CT 02/10/23 12:[address] WITHOUT CONTRAST CT DOSE: 1382.63 mGy.cm HISTORY: Acute upper abdominal pain pain, upper TECHNIQUE: Multiaxial CT images of the abdomen and pelvis were performed without contrast. A dose lowering technique was utilized adhering to the principles of ALARA. COMPARISON STUDY: Upper GI series 02/01/2023, CT 09/16/2022 FINDINGS: Limited study secondary to respiratory motion artifact and upper extremity positioning. Cardiomegaly with extensive coronary artery calcifications. Lung bases are generally clear. No pneumatosis or pneumoperitoneum. Streak artifact from the hip arthroplasties limits evaluation of the pelvis. The unenhanced spleen, mildly atrophic pancreas and adrenal glands are within normal limits. Mild cholelithiasis. Unremarkable liver. Mild cortical thinning of the kidneys. No hydronephrosis. Decompressed bladder with mild wall thickening. Atherosclerosis of the aorta. 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 Moderate sized hiatal hernia. Trace free fluid within the hernia sac. No bowel junction or bowel wall thickening. Colonic diverticulosis. Normal appendix. No ascites or mesenteric inflammation. Ventral hernia within the midline pelvis is again noted containing mesenteric fat and nonobstructed loops of small bowel. No acute fracture identified. Likely benign peripherally sclerotic 4.2 cm lucent focus of the left iliac bone again noted. 40% L2 compression deformity without retropulsion, new from prior. IMPRESSION: 1. Limited exam as above. 2. No bowel obstruction or bowel wall thickening. 3. Moderate-sized hiatal hernia. 4. Colonic diverticulosis. 5. Cholelithiasis. 6. Ventral midline pelvic hernia again noted containing nonobstructive loops of small bowel. 7. Likely subacute L2 compression deformity without retropulsion, new from 09/16/2022. ACT 112: Negative or not required by law. The above report was generated using voice recognition software. It may contain grammatical, syntax or spelling errors. Electronically signed by: Claudio Orourke M.D. 02/10/2023 2:01 PM (1) Abdominal pain Abdominal location: generalized Qualified Code(s): R10.84 - Generalized abdominal pain (3) Dementia Dementia type: unspecified type (7) Hypertension Hypertension type: unspecified Qualified Code(s): I10 - Essential (primary) hypertension (8) Chronic kidney disease Chronic kidney disease stage: unspecified stage Qualified Code(s): N18.9 - Chronic kidney disease, unspecified
[2023-02-12] MEDS: OLANZapine 10 MG/2.1 ML SDV IM PRN (18:28)
[2023-02-12] MEDS: ENOXAPARIN INJ 40 MG/0.4 ML SYR SQ SCH (20:24)
[2023-02-12] MEDS: allopurinoL 300 MG TAB PO SCH (20:24)
[2023-02-12] MEDS: GABAPENTIN 300 MG CAP PO SCH (20:24)
[2023-02-12] MEDS: ATORVASTATIN 40 MG TAB PO SCH (20:24)
[2023-02-12] MEDS: CHOLECALCIFEROL 1,000 UNITS 25 MCG TAB PO SCH (20:24)
[2023-02-12] MEDS: QUEtiapine FUMARATE 25 MG TABLET PO SCH (20:25)
[2023-02-12] MEDS: MAGNESIUM OXIDE 400 MG TAB PO SCH (20:25)
--- NOTE | 2023-02-12 20:38 | Electrocardiogram Report ---
Test Reason : Blood Pressure : / mmHG Vent. Rate : 072 BPM Atrial Rate : 072 BPM P-R Int : 232 ms QRS Dur : 124 ms QT Int : 458 ms P-R-T Axes : -17 079 042 degrees QTc Int : 501 ms Poor data quality, interpretation may be adversely affected Sinus rhythm with sinus arrhythmia with 1st degree A-V block Right bundle branch block Abnormal ECG When compared with ECG of 10-FEB-2023 12:44, Premature atrial complexes are no longer Present Nonspecific T wave abnormality no longer evident in Inferior leads Nonspecific T wave abnormality no longer evident in Anterolateral leads Confirmed by Nirav Gong ([id number]) on 02/12/2023 8:37:53 PM Referred By: REFERRED SELF Confirmed By:Nirav Gong
[2023-02-13] MEDS: LEVOTHYROXINE SODIUM 75 MCG TABLET PO SCH (05:56)
[2023-02-13] MEDS: BUDESONIDE 0.5 MG/2 ML VIAL (PULMICORT) INH SCH ×2 (07:56→19:34)
[2023-02-13] MEDS: FORMOTEROL 20 MCG/2 ML VIAL INH SCH ×2 (07:56→19:35)
[2023-02-13] MEDS: ALBUTEROL 0.083% NEBU SOLN 3 ML VIAL NEB SCH ×2 (07:56→19:34)
[2023-02-13] MEDS: SODIUM CHLOR 7% 4 ML NEB NEB SCH ×2 (07:57→19:35)
[2023-02-13 09:26] LABS: Basophils # (auto) 0.04 K/uL (0-0.2); Basophils % (auto) 0.4 %; Eosinophils # (auto) 0.03 K/uL (0-0.50); Eosinophils % (auto) 0.3 %; Hematocrit (blood only) 34.3 % (42.0-52.0); Hemoglobin 11.6 g/dl (14.0-18.0); Immature Granulocytes # (auto) 0.05 K/uL (0.01-0.20); Immature Granulocytes % (auto) 0.5 %; Lymphocytes % (auto) 7.8 %; Mean Corpuscular Hemoglobin 34.7 pg (25.0-34.0); Mean Corpuscular Hgb Conc 33.8 g/dL (32.0-36.0); Mean Corpuscular Volume 102.7 fL (80.0-100.0); Mean Platelet Volume 9.8 fL (9.4-12.4); Monocytes # (auto) 1.59 K/uL (0.11-0.59); Monocytes % (auto) 15.5 %; Neutrophils # (auto) 7.74 K/uL (1.40-6.50); Neutrophils % (auto) 75.5 %; Platelet Count 163 K/uL (130-400); RDW Coefficient of Variation 14.4 % (11.5-14.5); RDW Standard Deviation 54.4 fL (36.4-46.3); Red Blood Count 3.34 M/uL (4.70-6.10); White Blood Count 10.25 K/ul (4.8-10.8)
[2023-02-13 09:44] LABS: Albumin Globulin Ratio 1.2 (0.9-2); Albumin Level 3.7 gm/dl (3.4-5.0); BUN Creatinine Ratio 13.1 (10-20); Bilirubin,Total 1.6 mg/dl (0.2-1.0); Calcium 9.4 mg/dl (8.6-10.3); Creatinine Clr Calc Pharmacy 38.1 ml/min; Est GFR (African American) 42.3 ml/min; Est GFR (Non-African American) 36.5 ml/min; Potassium 3.9 mmol/L (3.5-5.1); Total Protein 6.7 gm/dl (6.0-8.3)
[2023-02-13] MEDS: OLANZapine 10 MG/2.1 ML SDV IM PRN ×2 (09:47→18:12)
[2023-02-13] MEDS: CLOPIDOGREL BISULFATE 75 MG TAB PO SCH (11:15)
[2023-02-13] MEDS: ASPIRIN 81 MG ECTAB PO SCH (11:15)
[2023-02-13] MEDS: ISOSORBIDE MONO EXTENDED REL 30 MG TABCR PO SCH (11:15)
[2023-02-13] MEDS: FAMOTIDINE 20 MG TAB PO SCH ×2 (11:15→20:58)
[2023-02-13] MEDS: PANTOprazole 40 MG TAB PO SCH ×2 (11:16→20:54)
[2023-02-13] MEDS: METOPROLOL SUCC 25MG EXT REL TAB PO SCH ×2 (11:16→20:49)
[2023-02-13] MEDS: cefTRIAXone SODIUM 2,000 MG in DEXTROSE 5% 50 ML IV SCH (11:17)
[2023-02-13] MEDS: CEFDINIR 300 MG CAP PO SCH ×2 (12:01→20:48)
--- NOTE | 2023-02-13 13:02 | Hospitalist Progress Note ---
Date of Service February 13, 2023 Assessment & Plan (1) Abdominal pain: (2) UTI (urinary tract infection): Plan: Patient is 77 y/o M with PMH CAD s/p PCI, stent, HTN, COPD, bronchiectasis, CKD III-IV, GERD, Sepulveda's esophagus, neuropathy, dementia, SVT versus paroxysmal atrial fibrillation, RBBB, and others listed below presented to ER with complaint of abdominal pain In ER vitals stable. No leukocytosis, LFTs WNL CT abdomen pelvis: 1. Limited exam. 2. No bowel obstruction or bowel wall thickening. 3. Moderate-sized hiatal hernia. 4. Colonic diverticulosis. 5. Cholelithiasis. 6. Ventral midline pelvic hernia again noted containing nonobstructive loops of small bowel. 7. Likely subacute L2 compression deformity without retropulsion, new from 09/16/2022. Urine culture positive for E. coli; pansensitive. Refused ceftriaxone. on cefdinir. Follow up on blood culture. We will follow-up on final results of culture and sensitivity. (3) Dementia: (4) Behavioural problem: Plan: Seen by outpatient neurology on the day of the admission. Recommended Seroquel 25 at bedtime. Zyprexa as needed One-to-one observer as needed Restraint if needed. (5) Barretts esophagus: Plan: Continue PPI, H2 sabi (6) CAD (coronary artery disease): Plan: S/p PCI, stent Elevated troponin high-sensitivity troponin 23--> 26 (has been higher in prior admissions) Continue aspirin, Plavix, isosorbide, metoprolol succinate, atorvastatin (7) Hypertension: Plan: Continue metoprolol succinate (8) Chronic kidney disease: Plan: CKD III-IV Creatinine around baseline. Monitor renal functions, avoid nephrotoxic agents when possible (9) COPD (chronic obstructive pulmonary disease): Plan: History COPD/bronchiectasis Continue home inhalers Albuterol as needed Continue home 2 L oxygen at bedtime (10) Chronic anemia: Plan: Hemoglobin same as baseline. 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 Time spent evaluating patient, direct bedside care, chart review, placing orders, interpretation of diagnostic studies, discussion with consultants, patient, and family members, as well as other required patient management activities is 60 minutes Please note the above document was generated using voice recognition software. It may contain grammatical, syntax or spelling errors. Any formal questions or concerns about the content, text or information contained within the body of this dictation should be directly addressed to the provider for clarification Admission and Anticipated Discharge Date Admission Date: February 10, 2023 Subjective Patient seen and examined at bedside. He is disoriented and continues to be agitated. Still continues to require one-to-one sitter. Refused medications. Review of Systems Review of Systems: Unobtainable due to cognitive status Physical Exam Physical Exam: General: agitated, not oriented to time, place and person. Head: normocephalic, atraumatic Eyes: PERRL, EOM's intact, conjunctiva non-injected, anicteric ENT: normal inspection external ears, nose, mucous membranes moist Neck: supple, trachea midline Lungs: clear, no respiratory distress, no wheezing/rhonchi/rales CV: RRR, no murmur, no pretibial edema Abd: protuberant, normal BS, soft, no apparent tenderness to palpation Ext: no cyanosis, no calf tenderness Neuro: Moves all extremities Skin: warm, dry Results & Data Results & Data Vital Signs (Past 12 Hours) Vital Signs Temp Pulse Pulse Resp BP Pulse Ox O2 Del Method 02/13/23 07:04 77 02/13/23 01:23 36.8 C 84 20 108/75 95 Room Air Laboratory Results Laboratory Results WBC 10.25 K/ul (4.8-10.8) 02/13/23 09:12 RBC 3.34 M/uL (4.70-6.10) L 02/13/23 09:12 Hgb 11.6 g/dl (14.0-18.0) L 02/13/23 09:12 Hct 34.3 % (42.0-52.0) L 02/13/23 09:12 MCV 102.7 fL (80.0-100.0) H 02/13/23 09:12 MCH 34.7 pg (25.0-34.0) H 02/13/23 09:12 MCHC 33.8 g/dL (32.0-36.0) 02/13/23 09:12 RDW Std Deviation 54.4 fL (36.4-46.3) H 02/13/23 09:12 RDW Coeff of Zoë 14.4 % (11.5-14.5) 02/13/23 09:12 Plt Count 163 K/uL (130-400) 02/13/23 09:12 MPV 9.8 fL (9.4-12.4) 02/13/23 09:12 Immature Gran % (Auto) 0.5 % 02/13/23 09:12 Neut % (Auto) 75.5 % 02/13/23 09:12 Lymph % (Auto) 7.8 % 02/13/23 09:12 [place] % (Auto) 15.5 % 02/13/23 09:12 Eos % (Auto) 0.3 % 02/13/23 09:12 Baso % (Auto) 0.4 % 02/13/23 09:12 Neut # (Auto) 7.74 K/uL (1.40-6.50) H 02/13/23 09:12 Lymph # (Auto) 0.80 K/uL (1.2-3.4) L 02/13/23 09:12 [place] # (Auto) 1.59 K/uL (0.11-0.59) H 02/13/23 09:12 Eos # (Auto) 0.03 K/uL (0-0.50) 02/13/23 09:12 Baso # (Auto) 0.04 K/uL (0-0.2) 02/13/23 09:12 Immature Gran # (Auto) 0.05 K/uL (0.01-0.20) 02/13/23 09:12 Sodium 141 mmol/L (136-145) 02/13/23 09:12 Potassium 3.9 mmol/L (3.5-5.1) 02/13/23 09:12 Chloride 106 mmol/L (98-107) 02/13/23 09:12 Carbon Dioxide 23 mmol/L (21-32) 02/13/23 09:12 Anion Gap 12 (3-11) H 02/13/23 09:12 BUN 23 mg/dl (6-23) 02/13/23 09:12 Creatinine 1.75 mg/dl (0.6-1.4) H 02/13/23 09:12 Est Cr Clr Drug Dosing 38.1 ml/min 02/13/23 09:12 Est GFR ( Amer) 42.3 ml/min 02/13/23 09:12 Est GFR (Non-Af Amer) 36.5 ml/min 02/13/23 09:12 BUN/Creatinine Ratio 13.1 (10-20) 02/13/23 09:12 Glucose 93 mg/dl (70-99(Fasting)) 02/13/23 09:12 POC Glucose 104 mg/dl (70-99) H 02/10/23 17:54 Calcium 9.4 mg/dl (8.6-10.3) 02/13/23 09:12 Magnesium 1.8 mg/dl (1.7-2.4) 02/10/23 13:15 Total Bilirubin 1.6 mg/dl (0.2-1.0) H 02/13/23 09:12 AST 20 U/L (13-39) 02/13/23 09:12 ALT 13 U/L (7-52) 02/13/23 09:12 Alkaline Phosphatase 65 U/L (34-104) 02/13/23 09:12 Troponin I High Sens 26.1 pg/ml (0-20) H 02/10/23 22:33 Total Protein 6.7 gm/dl (6.0-8.3) 02/13/23 09:12 Albumin 3.7 gm/dl (3.4-5.0) 02/13/23 09:12 Globulin 3.0 gm/dl (2.5-4.0) 02/13/23 09:12 Albumin/Globulin Ratio 1.2 (0.9-2) 02/13/23 09:12 Lipase 23 U/L (11-82) 02/10/23 13:15 Urine Color Yellow 02/11/23 19:56 Urine Appearance Clear (Clear) 02/11/23 19:56 Urine pH 7.0 (4.5-7.5) 02/11/23 19:56 Ur Specific [place] 1.014 (1.000-1.030) 02/11/23 19:56 Urine Protein Negative (Negative) 02/11/23 19:56 Urine Glucose (UA) Negative (Negative) 02/11/23 19:56 Urine Ketones Trace (Negative) H 02/11/23 19:56 Urine Blood 1+ (Negative) H 02/11/23 19:56 Urine Nitrite Positive (Negative) A 02/11/23 19:56 Urine Bilirubin Negative (Negative) 02/11/23 19:56 Urine Urobilinogen Negative (Negative) 02/11/23 19:56 Ur Leukocyte Esterase 2+ (Negative) H 02/11/23 19:56 Urine WBC (Auto) >30 /hpf (0-5) H 02/11/23 19:56 Urine RBC (Auto) 5-10 /hpf (0-4) H 02/11/23 19:56 U Hyaline Cast (Auto) 10-30 /lpf (0-5) H 02/11/23 19:56 U Epithel Cells (Auto) 0-5 /lpf (0-5) 02/11/23 19:56 Urine Bacteria (Auto) 4+ (Negative) H 02/11/23 19:56 Urine Opiates Screen Neg (Neg) 02/11/23 19:56 Ur Methadone, Qual Neg (Neg) 02/11/23 19:56 Urine Barbiturates Neg (Neg) 02/11/23 19:56 Ur Phencyclidine (PCP) Neg (Neg) 02/11/23 19:56 U Amphetamin/Meth Scrn Neg (Neg) 02/11/23 19:56 MDMA (Ecstasy) Screen Neg (Neg) 02/11/23 19:56 U Benzodiazepines Scrn Neg (Neg) 02/11/23 19:56 Ur Cocaine Metabolite Neg (Neg) 02/11/23 19:56 U Marijuana (THC) Screen Neg (Neg) 02/11/23 19:56 SARS-CoV-2, RNA, NAAT NEGATIVE (NEGATIVE) 02/10/23 13:00 Impressions Abdomen/Pelvis CT 02/10/23 12:[address] WITHOUT CONTRAST CT DOSE: 1382.63 mGy.cm HISTORY: Acute upper abdominal pain pain, upper TECHNIQUE: Multiaxial CT images of the abdomen and pelvis were performed without contrast. A dose lowering technique was utilized adhering to the principles of ALARA. COMPARISON STUDY: Upper GI series 02/01/2023, CT 09/16/2022 FINDINGS: Limited study secondary to respiratory motion artifact and upper extremity positioning. Cardiomegaly with extensive coronary artery calcifications. Lung bases are generally clear. No pneumatosis or pneumoperitoneum. Streak artifact from the hip arthroplasties limits evaluation of the pelvis. The unenhanced spleen, mildly atrophic pancreas and adrenal glands are within normal limits. Mild cholelithiasis. Unremarkable liver. Mild cortical thinning of the kidneys. No hydronephrosis. Decompressed bladder with mild wall thickening. Atherosclerosis of the aorta. 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 Moderate sized hiatal hernia. Trace free fluid within the hernia sac. No bowel junction or bowel wall thickening. Colonic diverticulosis. Normal appendix. No ascites or mesenteric inflammation. Ventral hernia within the midline pelvis is again noted containing mesenteric fat and nonobstructed loops of small bowel. No acute fracture identified. Likely benign peripherally sclerotic 4.2 cm lucent focus of the left iliac bone again noted. 40% L2 compression deformity without retropulsion, new from prior. IMPRESSION: 1. Limited exam as above. 2. No bowel obstruction or bowel wall thickening. 3. Moderate-sized hiatal hernia. 4. Colonic diverticulosis. 5. Cholelithiasis. 6. Ventral midline pelvic hernia again noted containing nonobstructive loops of small bowel. 7. Likely subacute L2 compression deformity without retropulsion, new from 09/16/2022. ACT 112: Negative or not required by law. The above report was generated using voice recognition software. It may contain grammatical, syntax or spelling errors. Electronically signed by: Claudio Orourke M.D. 02/10/2023 2:01 PM (1) Abdominal pain Abdominal location: generalized Qualified Code(s): R10.84 - Generalized abdominal pain (3) Dementia Dementia type: unspecified type (7) Hypertension Hypertension type: unspecified Qualified Code(s): I10 - Essential (primary) hypertension (8) Chronic kidney disease Chronic kidney disease stage: unspecified stage Qualified Code(s): N18.9 - Chronic kidney disease, unspecified
[2023-02-13] MEDS: QUEtiapine FUMARATE 25 MG TABLET PO SCH (20:48)
[2023-02-13] MEDS: ENOXAPARIN INJ 40 MG/0.4 ML SYR SQ SCH (20:53)
[2023-02-13] MEDS: ATORVASTATIN 40 MG TAB PO SCH (20:54)
[2023-02-13] MEDS: allopurinoL 300 MG TAB PO SCH (20:58)
[2023-02-13] MEDS: MAGNESIUM OXIDE 400 MG TAB PO SCH (21:03)
[2023-02-13] MEDS: CHOLECALCIFEROL 1,000 UNITS 25 MCG TAB PO SCH (21:03)
[2023-02-13] MEDS: GABAPENTIN 300 MG CAP PO SCH (21:03)
[2023-02-13 21:36] LABS: A calco-baum cmplx NotReported Not Detected (NotDetected); Bact fragilis Not Reported Not Detected (NotDetected); C auris Not Reported Not Detected (NotDetected); Calbicans Not Reported Not Detected (NotDetected); Candida glabrata Not Reported Not Detected (NotDetected); Candida krusei Not Reported Not Detected (NotDetected); Cneoformans/gatti Not Reported Not Detected (NotDetected); Cparapsilosis Not Reported Not Detected (NotDetected); Ctropicalis Not Reported Not Detected (NotDetected); E cloacae compx Not Reported Not Detected (NotDetected); Efaecalis Not Reported Not Detected (NotDetected); Efaecium Not Reported Not Detected (NotDetected); Enterobacterales Not Reported Not Detected (NotDetected); Escherichia coli Not Reported Not Detected (NotDetected); H influenzae Not Reported Not Detected (NotDetected); K aerogenes Not Reported Not Detected (NotDetected); Koxytoca Not Reported Not Detected (NotDetected); Kpneumoniae grp Not Reported Not Detected (NotDetected); Lmonocyt Not Reported Not Detected (NotDetected); N meningitidis Not Reported Not Detected (NotDetected); P aeruginosa Not Reported Not Detected (NotDetected); Proteus spp Not Reported Not Detected (NotDetected); Salmonella spp Not Reported Not Detected (NotDetected); Smarcescens Not Reported Not Detected (NotDetected); Staph lugdunensis Not Reported Not Detected (NotDetected); Staph spp. Not Reported DETECTED (NotDetected); Staphaureus Not Reported Not Detected (NotDetected); Staphepi Not Reported Not Detected (NotDetected); Stenmaltophilia Not Reported Not Detected (NotDetected); Strep agal(GrpB) Not Reported Not Detected (NotDetected); Strep pneum Not Reported Not Detected (NotDetected); Strep pyog (GrpA) Not Reported Not Detected (NotDetected); Strep spp Not Reported Not Detected (NotDetected)
[2023-02-13 21:50] LABS: Staphylococcus spp. DETECTED (NotDetected)
[2023-02-13] MEDS ORDERED: VANCOMYCIN CONSULT ACTIVE PRN (21:57)
[2023-02-13] MEDS ORDERED: VANCOMYCIN HCL 1,000 MG in SODIUM CHLORIDE 0.9% 250 ML IV SCH (22:00)
[2023-02-13] MEDS ORDERED: VANCOMYCIN HCL 2,000 MG in SODIUM CHLORIDE 0.9% 500 ML IV ONE (22:15)
[2023-02-14] MEDS: MELATONIN 3 MG TAB PO PRN ×2 (00:50→20:03)
[2023-02-14] MEDS: LEVOTHYROXINE SODIUM 75 MCG TABLET PO SCH (06:26)
[2023-02-14 06:35] LABS: Basophils # (auto) 0.02 K/uL (0-0.2); Basophils % (auto) 0.2 %; Eosinophils # (auto) 0.05 K/uL (0-0.50); Eosinophils % (auto) 0.5 %; Hematocrit (blood only) 35.8 % (42.0-52.0); Hemoglobin 11.9 g/dl (14.0-18.0); Immature Granulocytes # (auto) 0.05 K/uL (0.01-0.20); Immature Granulocytes % (auto) 0.5 %; Lymphocytes # (auto) 1.22 K/uL (1.2-3.4); Lymphocytes % (auto) 12.7 %; Mean Corpuscular Hemoglobin 34.5 pg (25.0-34.0); Mean Corpuscular Hgb Conc 33.2 g/dL (32.0-36.0); Mean Corpuscular Volume 103.8 fL (80.0-100.0); Mean Platelet Volume 9.9 fL (9.4-12.4); Monocytes # (auto) 1.16 K/uL (0.11-0.59); Monocytes % (auto) 12.1 %; Neutrophils # (auto) 7.12 K/uL (1.40-6.50); Platelet Count 178 K/uL (130-400); RDW Coefficient of Variation 14.5 % (11.5-14.5); RDW Standard Deviation 55.6 fL (36.4-46.3); Red Blood Count 3.45 M/uL (4.70-6.10); White Blood Count 9.62 K/ul (4.8-10.8)
[2023-02-14 06:51] LABS: Albumin Globulin Ratio 1.2 (0.9-2); Albumin Level 3.8 gm/dl (3.4-5.0); BUN Creatinine Ratio 14.6 (10-20); Bilirubin,Total 1.5 mg/dl (0.2-1.0); Calcium 9.7 mg/dl (8.6-10.3); Creatinine Clr Calc Pharmacy 38.4 ml/min; Est GFR (African American) 43.5 ml/min; Est GFR (Non-African American) 37.5 ml/min; Globulin 3.2 gm/dl (2.5-4.0); Potassium 3.6 mmol/L (3.5-5.1)
[2023-02-14] MEDS: FORMOTEROL 20 MCG/2 ML VIAL INH SCH ×2 (07:03→19:31)
[2023-02-14] MEDS: SODIUM CHLOR 7% 4 ML NEB NEB SCH ×2 (07:03→19:31)
[2023-02-14] MEDS: ALBUTEROL 0.083% NEBU SOLN 3 ML VIAL NEB SCH ×2 (07:03→19:31)
[2023-02-14] MEDS: BUDESONIDE 0.5 MG/2 ML VIAL (PULMICORT) INH SCH ×2 (07:03→19:31)
--- NOTE | 2023-02-14 14:03 | Psychiatric Consultation ---
Date of Consultation February 14, 2023 Impression / Recommendations Impression This is a 78 yo old man with history of dementia admitted for UTI, abdominal pain and recent loss of consciousness. Diagnostically consistent with encephalopathy/delirium superimposed on dementia with behavioral disturbance. Goal in dementia is to avoid medication management of behaviors if possible by maximizing non-pharmacologic strategies for behavioral management. However, given worsening agitation/aggression he was recently started on Seroquel. In cases of acute agitation antipsychotic risk/benefit profile favors treatment however his case is particularly challenging given his significantly elevated Q Tc. Note all antipsychotic medications carry black box warning for increased risk of all-cause mortality in setting of dementia and this is likely even further increased given cardiac history and elevated QTc. (1) UTI (urinary tract infection): (2) Dementia: Dementia type: unspecified type (3) Delirium: Plan -1-on-1 given level of agitation -Consider seroquel 12.5 mg BID po (rather than 25mg HS) to increase likelihood for adherence and potentially offer more daytime coverage for episodes of agitation. Given elevated QTc would not titrate any higher until QTc lowers to <500ms. -Consider scheduled melatonin 6mg qhs rather than prn -Continue medical workup to rule out and treat any underlying causes contributing to potential delirium, avoid or limit use of deliriogenic medications (benzodiazepines, opioids, anticholinergics) -Continue with delirium prevention measures: raising blinds during the day, closing at night, frequent re-orientation, contact with family/friends, explaining procedures/nursing care measures prior to physical contact, correct any hearing and visual impairments -For behavioral emergency: olanzapine 2.5 mg IM x 1 (DO NOT exceed 10mg per 24 hours, check EKG if IM dose required, NEVER co-administer with IM or IV benzodiazepines). Continue to exercise extreme caution in using IM medication given his elevated QTc, ideally QTc should be <500ms. Lorazepam could be used as an alterative for acute agitation though if delirium is present will likely make this worse but this would be a safer option if his QTc remains >500ms or elevates further. Psych History Identifying Data 78 yo man with a history of dementia, recently started on Seroquel by his neurologist, cardiac history, COPD, HTN and recent abdominal pain admitted after episode of loss of consciousness and now with UTI. Psychiatry consulted for behavioral events in context of dementia. Chief Complaint "incoherent mumbling". History of Present Illness Moody was admitted for worsening abdominal pain and after episode of loss of consciousness after leaving an outpatient neurology appointment last week. Since admission his baseline cognitive status has significantly worsened. In the ED he was able to converse though thought year was 2002 and expressing some paranoia about his stealing items from him apparently consistent with chronic delusions related to dementia. Since that time he has become increasingly disoriented with intermittent agitation, unable to follow commands, rarely speaks and requiring 1-on-1 at bedside. He has been refusing medications and today refused all meals so far. He's required a few doses of IM olanzapine 5mg for agitation, last yesterday morning and again in the evening. On my assessment this afternoon he is lying in bed and briefly makes eye contact. Murmurs briefly when I ask how he is doing. Cannot or will not engage any further with conversation. Allergies Allergy/AdvReac Type Severity Reaction Status Date / Time benzocaine Allergy Severe SLOUGHING Verified 01/12/23 21:39 OF SKIN clindamycin Allergy Intermediate RASH Verified 01/12/23 21:39 clobetasol Allergy Intermediate ITCHING Verified 01/12/23 21:39 cyanocobalamin (vitamin B12) Allergy Intermediate Rash Verified 01/12/23 21:39 doxycycline Allergy Intermediate RASH Verified 01/12/23 21:39 Penicillins Allergy Intermediate HIVES Verified 01/12/23 21:39 phenethylamine Allergy Intermediate Itching Verified 01/12/23 21:39 povidone-iodine Allergy Intermediate Hives Verified 01/12/23 21:39 [From Betadine] soap [From Betadine] Allergy Intermediate Hives Verified 01/12/23 21:39 tea tree Allergy Intermediate ITCHING Verified 01/12/23 21:39 lorazepam [From Ativan] AdvReac Mild Confusion Verified 02/10/23 17:19 Home Medications Medication Instructions Recorded Confirmed Type atorvastatin 80 mg tablet 80 mg PO QPM 06/14/18 02/10/23 History cholecalciferol (vitamin D3) 50 2,000 unit PO HS 06/14/18 02/10/23 History mcg (2,000 unit) capsule (Vitamin D3) docusate sodium 100 mg capsule 100 mg PO BID PRN Constipation 06/14/18 02/10/23 History famotidine 20 mg tablet 20 mg PO BID 06/14/18 02/10/23 History ipratropium 20 mcg-albuterol 100 1 puff inhalation QID PRN 06/14/18 02/10/23 History mcg/actuation mist for inhalation Cough/WHEEZING (Combivent Respimat) metoprolol succinate 25 mg 25 mg PO BID 06/14/18 02/10/23 History tablet,extended release 24 hr nitroglycerin 0.4 mg sublingual 1 tab sublingual UD PRN Angina 06/14/18 02/10/23 History tablet oxybutynin chloride 5 mg tablet 5 mg PO BID 06/14/18 02/10/23 History albuterol sulfate 2.5 mg/3 mL 2.5 mg inhalation QID PRN 01/07/19 02/10/23 History (0.083 %) solution for nebulization Shortness Of Breath clopidogrel 75 mg tablet (Plavix) 75 mg PO QAM 11/03/19 02/10/23 History isosorbide mononitrate 30 mg 30 mg PO QAM 01/28/20 02/10/23 History tablet,extended release 24 hr aspirin 81 mg tablet,delayed 81 mg PO QAM 09/18/20 02/10/23 History release cyanocobalamin (vitamin B-12) 1,000 mcg subcut MONTHLY 09/18/20 02/10/23 History 1,000 mcg/mL injection solution tramadol 50 mg tablet 50 mg PO Q12 PRN Pain 09/18/20 02/10/23 History valacyclovir 500 mg tablet 500 mg PO BID PRN RECURRENT EPISODE 09/18/20 02/10/23 History levothyroxine 75 mcg tablet 75 mcg PO QAM 09/09/21 02/10/23 History (Synthroid) magnesium oxide 400 mg (241.3 mg 400 mg PO HS 09/09/21 02/10/23 History magnesium) tablet multivitamin 1 tab PO HS 09/09/21 02/10/23 History allopurinol 300 mg tablet 300 mg PO PM 12/04/22 02/10/23 History pantoprazole 40 mg tablet,delayed 40 mg PO BID #60 tabs 01/14/23 02/10/23 Rx release arformoterol 15 mcg/2 mL solution 2 ml inhalation BID 02/10/23 02/10/23 History for nebulization budesonide 0.5 mg/2 mL suspension 0.25 mg inhalation BID 02/10/23 02/10/23 History for nebulization calcium carbonate 200 mg calcium 400 mg PO BID PRN Acid Reflux 02/10/23 02/10/23 History (500 mg) chewable tablet (Tums) gabapentin 300 mg capsule 300 mg PO HS 02/10/23 02/10/23 History lanolin alcohols-mineral 1 applic topical DAILY PRN Dry Skin 02/10/23 02/10/23 History oil-w.petrolatum-ceresin topical cream (Eucerin topical cream) melatonin 5 mg tablet 5 mg PO HS 02/10/23 02/10/23 History quetiapine 25 mg tablet 25 - 50 mg PO HS 02/10/23 02/10/23 History triamcinolone acetonide 0.1 % 1 applic topical BID PRN flare up 02/10/2309/23 History topical cream Patient History Medical History Anxiety Aortic aneurysm stable 3cm; pcp monitors Barretts esophagus Blood clotting disorder pt unable to verify Chronic anemia Chronic back pain Chronic kidney disease, stage 3 COPD (chronic obstructive pulmonary disease) inhalers and nebulizers daily Coronary artery disease Diverticular disease GERD (gastroesophageal reflux disease) Gout Gracie filter in place Hearing deficit Hyperlipidemia Hypertension Idiopathic neuropathy Myocardial Infarction 2016--follows with Dr. Casanova Neuropathy Nocturnal hypoxemia On home oxygen therapy 2.5L N/C at HS Osteoarthritis Poor historian Prostate cancer sx Recurrent genital herpes simplex (Unknown) Sciatica Sleep apnea oxygen at night Temporomandibular joint disorder Surgical History History of arthroscopic knee surgery History of bilateral cataract extraction History of cardiac cath x5--last 2018 History of colonoscopy History of esophagogastroduodenoscopy (EGD) History of heart artery stent multiple--last 2019 2/2 to restenosis History of hernia repair epigastric History of left shoulder replacement History of lumbar surgery History of mandibular surgery tmj repair History of prostate biopsy malignant History of prostatectomy History of right inguinal hernia repair History of right shoulder replacement History of tooth extraction all teeth removed Status post correction of deviated nasal septum Status post total hip replacement, bilateral Family History Other Family history not known due to adoption Social History Smoking Status: Unknown if ever smoked Tobacco Type: Cigarettes Do You Dip or Chew Tobacco: No; Preferred Language: French Communication Ability: Impaired Manometer Technician Required: No Beliefs That Will Affect Care: None marital status: Current Living Situation: Spouse Current Living Situation Comment: lives with and son current occupational status: retired How many Children do You have: 4 Other Information That Helps Us Care for You: No Feels Safe at Home: Yes Assistive Devices: Cane and Wheelchair Physical Exam Psychiatric: Orientation: alert and oriented to person; + not oriented to place and + not oriented to time Apperance: + disheveled Eye Contact: + poor eye contact Motor Behavior: no abnormal motor movements Speech: + abnormal rate/rhythm/volume of speech (brief, mumbled) Affect: + labile affect Thought Process: + looseness of associations Cognition: + attention not intact and + language not intact Insight: + severely impaired insight Judgment: + severely impaired judgement Vital Signs (Past 24 Hours): Last Vital Signs Temp 37 C 02/14/23 11:51 Pulse 85 02/14/23 11:51 Resp 20 02/14/23 11:51 BP 157/98 H 02/14/23 11:51 Pulse Ox 94 02/14/23 11:51 O2 Del Method Room Air 02/14/23 11:51 O2 Flow Rate 2 02/10/23 16:34 Review of Systems Unobtainable due to cognitive status Results & Data (PSY) Laboratory Results Na+ normal Diagnostic Findings QTc 501ms on EKG on 02/11/2023 Medications Administered Albuterol (Albuterol 0.083% Nebu Soln 3 Ml Vial) 2.5 mg NEB BIDR [facility]; Protocol Stop: 03/13/23 18:59 Last Admin: 02/14/23 07:03 Dose: Not Given Documented By: Admin: 02/13/23 19:34 Dose: Not Given Documented By: Admin: 02/13/23 07:56 Dose: Not Given Documented By: Admin: 02/12/23 19:17 Dose: Not Given Documented By: Admin: 02/12/23 07:07 Dose: Not Given Documented By: Admin: 02/11/23 19:37 Dose: Not Given Documented By: HARSH Allopurinol (Allopurinol 300 Mg Tab) 300 mg PO PM MANDY Stop: 03/12/23 21:08 Last Admin: 02/13/23 20:58 Dose: 300 mg Documented By: Admin: 02/12/23 20:24 Dose: Not Given Documented By: Admin: 02/11/23 21:56 Dose: Not Given Documented By: Admin: 02/10/23 22:13 Dose: Not Given Documented By: ARMEN Aspirin (Aspirin 81 Mg Ectab) 81 mg PO QAM MANDY Stop: 03/13/23 08:59 Last Admin: 02/13/23 11:15 Dose: Not Given Documented By: [facility] Admin: 02/12/23 07:58 Dose: Not Given Documented By: [facility] Admin: 02/11/23 08:38 Dose: 81 mg Documented By: [facility] Atorvastatin Calcium (Atorvastatin 40 Mg Tab) 80 mg PO QPM MANDY Stop: 03/12/23 21:08 Last Admin: 02/13/23 20:54 Dose: 80 mg Documented By: Admin: 02/12/23 20:24 Dose: Not Given Documented By: Admin: 02/11/23 21:56 Dose: Not Given Documented By: Admin: 02/10/23 22:13 Dose: Not Given Documented By: ARMEN Budesonide (Budesonide 0.5 Mg/2 Ml Vial (Pulmicort)) 0.25 mg INH BIDR MANDY Stop: 03/12/23 21:08 Last Admin: 02/14/23 07:03 Dose: Not Given Documented By: Admin: 02/13/23 19:34 Dose: Not Given Documented By: Admin: 02/13/23 07:56 Dose: Not Given Documented By: Admin: 02/12/23 19:17 Dose: Not Given Documented By: Admin: 02/12/23 07:10 Dose: Not Given Documented By: Admin: 02/11/23 18:58 Dose: 0.25 mg Documented By: Admin: 02/11/23 07:34 Dose: Not Given Documented By: Admin: 02/10/23 22:13 Dose: Not Given Documented By: ARMEN Cefdinir (Cefdinir 300 Mg Cap) 300 mg PO BID MANDY Stop: 02/23/23 11:29 Last Admin: 02/13/23 20:48 Dose: 300 mg Documented By: Admin: 02/13/23 12:01 Dose: 300 mg Documented By: [facility] Clopidogrel Bisulfate (Clopidogrel Bisulfate 75 Mg Tab) 75 mg PO QAM [facility] Stop: 03/13/23 08:59 Last Admin: 02/13/23 11:15 Dose: Not Given Documented By: [facility] Admin: 02/12/23 07:58 Dose: Not Given Documented By: [facility] Admin: 02/11/23 08:39 Dose: 75 mg Documented By: [facility] Enoxaparin Sodium (Enoxaparin Inj 40 Mg/0.4 Ml Syr) 40 mg SQ HS [facility] Stop: 03/12/23 21:08 Last Admin: 02/13/23 20:53 Dose: Not Given Documented By: [facility] Admin: 02/12/23 20:24 Dose: Not Given Documented By: Admin: 02/11/23 21:56 Dose: Not Given Documented By: Admin: 02/10/23 22:13 Dose: Not Given Documented By: ARMEN Famotidine (Famotidine 20 Mg Tab) 20 mg PO BID [facility] Stop: 03/12/23 21:08 Last Admin: 02/13/23 20:58 Dose: 20 mg Documented By: [facility] Admin: 02/13/23 11:15 Dose: Not Given Documented By: [facility] Admin: 02/12/23 20:24 Dose: Not Given Documented By: Admin: 02/12/23 07:58 Dose: Not Given Documented By: [facility] Admin: 02/11/23 21:56 Dose: Not Given Documented By: Admin: 02/11/23 08:39 Dose: 20 mg Documented By: [facility] Admin: 02/10/23 22:13 Dose: Not Given Documented By: Formoterol Fumarate (Formoterol 20 Mcg/2 Ml Vial) 20 mcg INH BIDR [facility] Stop: 03/12/23 21:29 Last Admin: 02/14/23 07:03 Dose: Not Given Documented By: Admin: 02/13/23 19:35 Dose: Not Given Documented By: Admin: 02/13/23 07:56 Dose: Not Given Documented By: Admin: 02/12/23 19:17 Dose: Not Given Documented By: Admin: 02/12/23 07:11 Dose: Not Given Documented By: Admin: 02/11/23 18:58 Dose: 20 mcg Documented By: Admin: 02/11/23 07:34 Dose: Not Given Documented By: Admin: 02/10/23 22:42 Dose: Not Given Documented By: HARSH Gabapentin (Gabapentin 300 Mg Cap) 300 mg PO [facility] Stop: 03/12/23 21:08 Last Admin: 02/13/23 21:03 Dose: Not Given Documented By: Admin: 02/12/23 20:24 Dose: Not Given Documented By: Admin: 02/11/23 21:57 Dose: Not Given Documented By: Admin: 02/10/23 22:13 Dose: Not Given Documented By: ARMEN Acetaminophen (Ofirmev) 1,000 mg in 100 mls @ 400 mls/hr IV Q8H PRN PRN Reason: Fever/pain Stop: 02/15/23 04:52 Last Infusion: 02/13/23 00:17 Dose: 0 mls/hr Documented By: Admin: 02/12/23 23:58 Dose: 400 mls/hr Documented By: Infusion: 02/12/23 08:49 Dose: 0 mls/hr Documented By: Admin: 02/12/23 07:57 Dose: 400 mls/hr Documented By: MAGALY Isosorbide Mononitrate (Isosorbide [place] Extended Rel 30 Mg Tabcr) 30 mg PO QAM [facility] Stop: 03/13/23 08:59 Last Admin: 02/13/23 11:15 Dose: Not Given Documented By: Admin: 02/12/23 07:58 Dose: Not Given Documented By: [facility] Admin: 02/11/23 08:39 Dose: 30 mg Documented By: MAGALY Levothyroxine Sodium (Levothyroxine Sodium 75 Mcg Tablet) 75 mcg PO DAILYBB [facility] Stop: 03/13/23 06:29 Last Admin: 02/14/23 06:26 Dose: Not Given Documented By: Admin: 02/13/23 05:56 Dose: Not Given Documented By: Admin: 02/12/23 05:38 Dose: Not Given Documented By: Admin: 02/11/23 06:17 Dose: Not Given Documented By: ARMEN Magnesium Oxide (Magnesium Oxide 400 Mg Tab) 400 mg PO HS MANDY Stop: 03/12/23 21:08 Last Admin: 02/13/23 21:03 Dose: Not Given Documented By: Admin: 02/12/23 20:25 Dose: Not Given Documented By: Admin: 02/11/23 21:57 Dose: Not Given Documented By: Admin: 02/10/23 22:14 Dose: Not Given Documented By: ARMEN Melatonin (Melatonin 3 Mg Tab) 6 mg PO HS PRN PRN Reason: Sleep Stop: 03/12/23 23:30 Last Admin: 02/14/23 00:50 Dose: 6 mg Documented By: Admin: 02/10/23 23:50 Dose: 6 mg Documented By: ARMEN Metoprolol Succinate (Metoprolol Succ 25mg Ext Rel Tab) 25 mg PO BID MANDY Stop: 03/12/23 21:08 Last Admin: 02/13/23 20:49 Dose: 25 mg Documented By: Admin: 02/13/23 11:16 Dose: Not Given Documented By: [facility] Admin: 02/12/23 20:25 Dose: Not Given Documented By: Admin: 02/12/23 07:59 Dose: Not Given Documented By: [facility] Admin: 02/11/23 21:57 Dose: Not Given Documented By: Admin: 02/11/23 08:40 Dose: 25 mg Documented By: [facility] Admin: 02/10/23 22:14 Dose: Not Given Documented By: Olanzapine (Olanzapine 10 Mg/2.1 Ml Sdv) 5 mg IM Q6H PRN PRN Reason: Anxiety/Agitation Stop: 03/12/23 19:55 Last Admin: 02/13/23 18:12 Dose: 5 mg Documented By: [id number] Admin: 02/13/23 09:47 Dose: 5 mg Documented By: [facility] Admin: 02/12/23 18:28 Dose: 5 mg Documented By: [facility] Admin: 02/11/23 02:19 Dose: 5 mg Documented By: Pantoprazole Sodium (Pantoprazole 40 Mg Tab) 40 mg PO BID MANDY Stop: 03/12/23 21:08 Last Admin: 02/13/23 20:54 Dose: 40 mg Documented By: Admin: 02/13/23 11:16 Dose: Not Given Documented By: Admin: 02/12/23 20:25 Dose: Not Given Documented By: Admin: 02/12/23 07:59 Dose: Not Given Documented By: M Admin: 02/11/23 21:57 Dose: Not Given Documented By: Admin: 02/11/23 08:37 Dose: 40 mg Documented By: M Admin: 02/10/23 22:14 Dose: Not Given Documented By: LL Quetiapine Fumarate (Quetiapine Fumarate 25 Mg Tablet) 25 mg PO [facility] Stop: 03/13/23 20:59 Last Admin: 02/13/23 20:48 Dose: 25 mg Documented By: Admin: 02/12/23 20:25 Dose: Not Given Documented By: Admin: 02/11/23 21:57 Dose: Not Given Documented By: LL Sodium Chloride (Sodium Chlor 7% 4 Ml Neb) 4 ml NEB BIDR MANDY Stop: 03/13/23 18:59 Last Admin: 02/14/23 07:03 Dose: Not Given Documented By: Admin: 02/13/23 19:35 Dose: Not Given Documented By: Admin: 02/13/23 07:57 Dose: Not Given Documented By: Admin: 02/12/23 19:18 Dose: Not Given Documented By: Admin: 02/12/23 07:12 Dose: Not Given Documented By: Admin: 02/11/23 18:58 Dose: 4 ml Documented By: CS Vitamin D (Cholecalciferol 1,000 Units 25 Mcg Tab) 2,000 units PO [facility] Stop: 03/12/23 21:08 Last Admin: 02/13/23 21:03 Dose: Not Given Documented By: Admin: 02/12/23 20:24 Dose: Not Given Documented By: Admin: 02/11/23 21:56 Dose: Not Given Documented By: Admin: 02/10/23 22:13 Dose: Not Given Documented By: ARMEN Coding Level of Care Code 54009 IN/OBS CONSULT LVL 3,45M Diagnoses UTI (urinary tract infection) N39.0 Dementia F03.90 Dementia type: unspecified type Delirium R41.0 Time Spent (min) 50
--- NOTE | 2023-02-14 16:09 | Hospitalist Progress Note ---
Date of Service February 14, 2023 Assessment & Plan (1) Abdominal pain: (2) UTI (urinary tract infection): Plan: Patient is 77 y/o M with PMH CAD s/p PCI, stent, HTN, COPD, bronchiectasis, CKD III-IV, GERD, Sepulveda's esophagus, neuropathy, dementia, SVT versus paroxysmal atrial fibrillation, RBBB, and others listed below presented to ER with complaint of abdominal pain In ER vitals stable. No leukocytosis, LFTs WNL CT abdomen pelvis: 1. Limited exam. 2. No bowel obstruction or bowel wall thickening. 3. Moderate-sized hiatal hernia. 4. Colonic diverticulosis. 5. Cholelithiasis. 6. Ventral midline pelvic hernia again noted containing nonobstructive loops of small bowel. 7. Likely subacute L2 compression deformity without retropulsion, new from 09/16/2022. Urine culture positive for E. coli; pansensitive. Currently on ceftriaxone. Was given cefdinir yesterday as he refused IV. Continue for at least 7 days of treatment. (3) Dementia: (4) Behavioural problem: Plan: Seen by outpatient neurology on the day of the admission. Recommended Seroquel 25 at bedtime. Zyprexa as needed One-to-one observer as needed Psychiatry consulted; recommend Seroquel twice daily and Zyprexa as needed. Patient appears slightly lethargic today; will hold off on addition of Seroquel for now. Monitor. (5) Barretts esophagus: Plan: Continue PPI, H2 sabi (6) CAD (coronary artery disease): Plan: S/p PCI, stent Elevated troponin high-sensitivity troponin 23--> 26 (has been higher in prior admissions) Continue aspirin, Plavix, isosorbide, metoprolol succinate, atorvastatin (7) Hypertension: Plan: Continue metoprolol succinate (8) Chronic kidney disease: Plan: CKD III-IV Creatinine around baseline. Monitor renal functions, avoid nephrotoxic agents when possible (9) COPD (chronic obstructive pulmonary disease): Plan: History COPD/bronchiectasis Continue home inhalers Albuterol as needed Continue home 2 L oxygen at bedtime (10) Chronic anemia: Plan: Hemoglobin same as baseline. 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 They prefer him to go back home with them. However, concern of falling. PT OT ordered. Patient not compliant with therapy. Time spent evaluating patient, direct bedside care, chart review, placing orders, interpretation of diagnostic studies, discussion with consultants, patient, and family members, as well as other required patient management activities is 60 minutes Please note the above document was generated using voice recognition software. It may contain grammatical, syntax or spelling errors. Any formal questions or concerns about the content, text or information contained within the body of this dictation should be directly addressed to the provider for clarification Admission and Anticipated Discharge Date Admission Date: February 10, 2023 Subjective Patient seen multiple times during the day. Patient appears lethargic. He is not as agitated as before. Did not require IM Zyprexa overnight. Review of Systems Review of Systems: Unobtainable due to mental health condition Physical Exam Physical Exam: General: Slightly lethargic. Not oriented to time, place and person. Head: normocephalic, atraumatic Eyes: PERRL, EOM's intact, conjunctiva non-injected, anicteric ENT: normal inspection external ears, nose, mucous membranes moist Neck: supple, trachea midline Lungs: clear, no respiratory distress, no wheezing/rhonchi/rales CV: RRR, no murmur, no pretibial edema Abd: protuberant, normal BS, soft, no apparent tenderness to palpation Ext: no cyanosis, no calf tenderness Neuro: Moves all extremities Skin: warm, dry Results & Data Results & Data Vital Signs (Past 12 Hours) Vital Signs Temp Pulse Resp BP BP Pulse Ox O2 Del Method 02/14/23 15:39 36.6 C 71 18 151/91 H 93 Room Air 02/14/23 11:51 37 C 85 20 157/98 H 94 Room Air 02/14/23 11:20 37.6 C H 85 18 154/89 H 93 Room Air 02/14/23 06:14 Room Air 02/14/23 06:11 37.5 C 76 18 139/83 92 Room Air Laboratory Results Laboratory Results WBC 9.62 K/ul (4.8-10.8) 02/14/23 06:14 RBC 3.45 M/uL (4.70-6.10) L 02/14/23 06:14 Hgb 11.9 g/dl (14.0-18.0) L 02/14/23 06:14 Hct 35.8 % (42.0-52.0) L 02/14/23 06:14 MCV 103.8 fL (80.0-100.0) H 02/14/23 06:14 MCH 34.5 pg (25.0-34.0) H 02/14/23 06:14 MCHC 33.2 g/dL (32.0-36.0) 02/14/23 06:14 RDW Std Deviation 55.6 fL (36.4-46.3) H 02/14/23 06:14 RDW Coeff of Zoë 14.5 % (11.5-14.5) 02/14/23 06:14 Plt Count 178 K/uL (130-400) 02/14/23 06:14 MPV 9.9 fL (9.4-12.4) 02/14/23 06:14 Immature Gran % (Auto) 0.5 % 02/14/23 06:14 Neut % (Auto) 74.0 % 02/14/23 06:14 Lymph % (Auto) 12.7 % 02/14/23 06:14 [place] % (Auto) 12.1 % 02/14/23 06:14 Eos % (Auto) 0.5 % 02/14/23 06:14 Baso % (Auto) 0.2 % 02/14/23 06:14 Neut # (Auto) 7.12 K/uL (1.40-6.50) H 02/14/23 06:14 Lymph # (Auto) 1.22 K/uL (1.2-3.4) 02/14/23 06:14 [place] # (Auto) 1.16 K/uL (0.11-0.59) H 02/14/23 06:14 Eos # (Auto) 0.05 K/uL (0-0.50) 02/14/23 06:14 Baso # (Auto) 0.02 K/uL (0-0.2) 02/14/23 06:14 Immature Gran # (Auto) 0.05 K/uL (0.01-0.20) 02/14/23 06:14 Sodium 143 mmol/L (136-145) 02/14/23 06:14 Potassium 3.6 mmol/L (3.5-5.1) 02/14/23 06:14 Chloride 108 mmol/L (98-107) H 02/14/23 06:14 Carbon Dioxide 23 mmol/L (21-32) 02/14/23 06:14 Anion Gap 12 (3-11) H 02/14/23 06:14 BUN 25 mg/dl (6-23) H 02/14/23 06:14 Creatinine 1.71 mg/dl (0.6-1.4) H 02/14/23 06:14 Est Cr Clr Drug Dosing 38.4 ml/min 02/14/23 06:14 Est GFR ( Amer) 43.5 ml/min 02/14/23 06:14 Est GFR (Non-Af Amer) 37.5 ml/min 02/14/23 06:14 BUN/Creatinine Ratio 14.6 (10-20) 02/14/23 06:14 Glucose 100 mg/dl (70-99(Fasting)) H 02/14/23 06:14 POC Glucose 104 mg/dl (70-99) H 02/10/23 17:54 Calcium 9.7 mg/dl (8.6-10.3) 02/14/23 06:14 Magnesium 1.8 mg/dl (1.7-2.4) 02/10/23 13:15 Total Bilirubin 1.5 mg/dl (0.2-1.0) H 02/14/23 06:14 AST 26 U/L (13-39) 02/14/23 06:14 ALT 17 U/L (7-52) 02/14/23 06:14 Alkaline Phosphatase 64 U/L (34-104) 02/14/23 06:14 Troponin I High Sens 26.1 pg/ml (0-20) H 02/10/23 22:33 Total Protein 7.0 gm/dl (6.0-8.3) 02/14/23 06:14 Albumin 3.8 gm/dl (3.4-5.0) 02/14/23 06:14 Globulin 3.2 gm/dl (2.5-4.0) 02/14/23 06:14 Albumin/Globulin Ratio 1.2 (0.9-2) 02/14/23 06:14 Lipase 23 U/L (11-82) 02/10/23 13:15 Urine Color Yellow 02/11/23 19:56 Urine Appearance Clear (Clear) 02/11/23 19:56 Urine pH 7.0 (4.5-7.5) 02/11/23 19:56 Ur Specific [place] 1.014 (1.000-1.030) 02/11/23 19:56 Urine Protein Negative (Negative) 02/11/23 19:56 Urine Glucose (UA) Negative (Negative) 02/11/23 19:56 Urine Ketones Trace (Negative) H 02/11/23 19:56 Urine Blood 1+ (Negative) H 02/11/23 19:56 Urine Nitrite Positive (Negative) A 02/11/23 19:56 Urine Bilirubin Negative (Negative) 02/11/23 19:56 Urine Urobilinogen Negative (Negative) 02/11/23 19:56 Ur Leukocyte Esterase 2+ (Negative) H 02/11/23 19:56 Urine WBC (Auto) >30 /hpf (0-5) H 02/11/23 19:56 Urine RBC (Auto) 5-10 /hpf (0-4) H 02/11/23 19:56 U Hyaline Cast (Auto) 10-30 /lpf (0-5) H 02/11/23 19:56 U Epithel Cells (Auto) 0-5 /lpf (0-5) 02/11/23 19:56 Urine Bacteria (Auto) 4+ (Negative) H 02/11/23 19:56 Urine Opiates Screen Neg (Neg) 02/11/23 19:56 Ur Methadone, Qual Neg (Neg) 02/11/23 19:56 Urine Barbiturates Neg (Neg) 02/11/23 19:56 Ur Phencyclidine (PCP) Neg (Neg) 02/11/23 19:56 U Amphetamin/Meth Scrn Neg (Neg) 02/11/23 19:56 MDMA (Ecstasy) Screen Neg (Neg) 02/11/23 19:56 U Benzodiazepines Scrn Neg (Neg) 02/11/23 19:56 Ur Cocaine Metabolite Neg (Neg) 02/11/23 19:56 U Marijuana (THC) Screen Neg (Neg) 02/11/23 19:56 SARS-CoV-2, RNA, NAAT NEGATIVE (NEGATIVE) 02/10/23 13:00 Staphylococcus sp PCR DETECTED (NotDetected) A 02/12/23 12:10 Bld Cult ID Panel PCR See PCR Comment (NotDetected) 02/12/23 12:10 Impressions Abdomen/Pelvis CT 02/10/23 12:[address] WITHOUT CONTRAST CT DOSE: 1382.63 mGy.cm HISTORY: Acute upper abdominal pain pain, upper TECHNIQUE: Multiaxial CT images of the abdomen and pelvis were performed without contrast. A dose lowering technique was utilized adhering to the principles of ALARA. COMPARISON STUDY: Upper GI series 02/01/2023, CT 09/16/2022 FINDINGS: Limited study secondary to respiratory motion artifact and upper extremity positioning. Cardiomegaly with extensive coronary artery calcifications. Lung bases are generally clear. No pneumatosis or pneumoperitoneum. Streak artifact from the hip arthroplasties limits evaluation of the pelvis. The unenhanced spleen, mildly atrophic pancreas and adrenal glands are within normal limits. Mild cholelithiasis. Unremarkable liver. Mild cortical thinning of the kidneys. No hydronephrosis. Decompressed bladder with mild wall thickening. Atherosclerosis of the aorta. 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 Moderate sized hiatal hernia. Trace free fluid within the hernia sac. No bowel junction or bowel wall thickening. Colonic diverticulosis. Normal appendix. No ascites or mesenteric inflammation. Ventral hernia within the midline pelvis is again noted containing mesenteric fat and nonobstructed loops of small bowel. No acute fracture identified. Likely benign peripherally sclerotic 4.2 cm lucent focus of the left iliac bone again noted. 40% L2 compression deformity without retropulsion, new from prior. IMPRESSION: 1. Limited exam as above. 2. No bowel obstruction or bowel wall thickening. 3. Moderate-sized hiatal hernia. 4. Colonic diverticulosis. 5. Cholelithiasis. 6. Ventral midline pelvic hernia again noted containing nonobstructive loops of small bowel. 7. Likely subacute L2 compression deformity without retropulsion, new from 09/16/2022. ACT 112: Negative or not required by law. The above report was generated using voice recognition software. It may contain grammatical, syntax or spelling errors. Electronically signed by: Claudio Orourke M.D. 02/10/2023 2:01 PM (1) Abdominal pain Abdominal location: generalized Qualified Code(s): R10.84 - Generalized abdominal pain (3) Dementia Dementia type: unspecified type (7) Hypertension Hypertension type: unspecified Qualified Code(s): I10 - Essential (primary) hypertension (8) Chronic kidney disease Chronic kidney disease stage: unspecified stage Qualified Code(s): N18.9 - Chronic kidney disease, unspecified
[2023-02-14] MEDS: FAMOTIDINE 20 MG TAB PO SCH ×2 (16:11→20:06)
[2023-02-14] MEDS: METOPROLOL SUCC 25MG EXT REL TAB PO SCH ×2 (16:11→20:04)
[2023-02-14] MEDS: CLOPIDOGREL BISULFATE 75 MG TAB PO SCH (16:11)
[2023-02-14] MEDS: ISOSORBIDE MONO EXTENDED REL 30 MG TABCR PO SCH (16:11)
[2023-02-14] MEDS: PANTOprazole 40 MG TAB PO SCH ×2 (16:11→20:05)
[2023-02-14] MEDS: cefTRIAXone SODIUM 2,000 MG in DEXTROSE 5% 50 ML IV SCH (16:11)
[2023-02-14] MEDS: ASPIRIN 81 MG ECTAB PO SCH (16:11)
[2023-02-14] MEDS: CEFDINIR 300 MG CAP PO SCH (16:45)
[2023-02-14] MEDS: CHOLECALCIFEROL 1,000 UNITS 25 MCG TAB PO SCH (20:03)
[2023-02-14] MEDS: allopurinoL 300 MG TAB PO SCH (20:04)
[2023-02-14] MEDS: ENOXAPARIN INJ 40 MG/0.4 ML SYR SQ SCH (20:05)
[2023-02-14] MEDS: QUEtiapine FUMARATE 25 MG TABLET PO SCH (20:05)
[2023-02-14] MEDS: ATORVASTATIN 40 MG TAB PO SCH (20:05)
[2023-02-14] MEDS: GABAPENTIN 300 MG CAP PO SCH (20:06)
[2023-02-14] MEDS: MAGNESIUM OXIDE 400 MG TAB PO SCH (20:06)
--- NOTE | 2023-02-14 21:25 | XRay Report ---
XR chest 1V portable CLINICAL HISTORY: infiltrates/congestion TECHNIQUE: Single frontal radiograph of the chest was obtained. Comparison: Comparison is made to chest radiograph 01/12/2023 FINDINGS: Right shoulder arthroplasty is seen. The aorta is tortuous. The remainder of the cardiomediastinal si lhouette is unremarkable. The lungs are clear. No evidence of pleural effusion or pneumothorax. IMPRESSION: No acute abnormalities and in particular no radiographic evidence of pneumonia. ACT 112: Negative or not required by law. Electronically signed by: Vega Olson M.D. 02/14/2023 9:23 PM
[2023-02-15] MEDS ORDERED: ALBUTEROL 0.083% NEBU SOLN 3 ML VIAL NEB PRN (01:32)
[2023-02-15] MEDS: LEVOTHYROXINE SODIUM 75 MCG TABLET PO SCH (05:28)
[2023-02-15] MEDS: BUDESONIDE 0.5 MG/2 ML VIAL (PULMICORT) INH SCH ×2 (07:32→19:15)
[2023-02-15] MEDS: PANTOprazole 40 MG TAB PO SCH ×2 (10:06→20:57)
[2023-02-15] MEDS: CLOPIDOGREL BISULFATE 75 MG TAB PO SCH (10:06)
[2023-02-15] MEDS: FAMOTIDINE 20 MG TAB PO SCH ×2 (10:06→20:57)
[2023-02-15] MEDS: ISOSORBIDE MONO EXTENDED REL 30 MG TABCR PO SCH (10:06)
[2023-02-15] MEDS: ASPIRIN 81 MG ECTAB PO SCH (10:06)
[2023-02-15] MEDS: METOPROLOL SUCC 25MG EXT REL TAB PO SCH ×2 (10:06→20:58)
[2023-02-15 11:38] LABS: Basophils # (auto) 0.04 K/uL (0-0.2); Basophils % (auto) 0.5 %; Eosinophils # (auto) 0.09 K/uL (0-0.50); Eosinophils % (auto) 1.1 %; Hematocrit (blood only) 36.3 % (42.0-52.0); Hemoglobin 11.8 g/dl (14.0-18.0); Immature Granulocytes # (auto) 0.04 K/uL (0.01-0.20); Immature Granulocytes % (auto) 0.5 %; Lymphocytes # (auto) 0.89 K/uL (1.2-3.4); Lymphocytes % (auto) 10.6 %; Mean Corpuscular Hemoglobin 34.1 pg (25.0-34.0); Mean Corpuscular Hgb Conc 32.5 g/dL (32.0-36.0); Mean Corpuscular Volume 104.9 fL (80.0-100.0); Mean Platelet Volume 10.3 fL (9.4-12.4); Monocytes # (auto) 0.95 K/uL (0.11-0.59); Monocytes % (auto) 11.3 %; Neutrophils # (auto) 6.42 K/uL (1.40-6.50); Platelet Count 196 K/uL (130-400); RDW Coefficient of Variation 14.6 % (11.5-14.5); RDW Standard Deviation 56.5 fL (36.4-46.3); Red Blood Count 3.46 M/uL (4.70-6.10); White Blood Count 8.43 K/ul (4.8-10.8)
[2023-02-15 11:47] LABS: Albumin Globulin Ratio 1.1 (0.9-2); Albumin Level 3.7 gm/dl (3.4-5.0); Bilirubin,Total 1.1 mg/dl (0.2-1.0); Calcium 9.6 mg/dl (8.6-10.3); Creatinine Clr Calc Pharmacy 35.7 ml/min; Est GFR (African American) 39.8 ml/min; Est GFR (Non-African American) 34.3 ml/min; Globulin 3.5 gm/dl (2.5-4.0); Potassium 3.8 mmol/L (3.5-5.1); Total Protein 7.2 gm/dl (6.0-8.3)
[2023-02-15] MEDS: D5NSS + 20MEQ KCL 20 MEQ/1,000 ML BAG IV SCH (13:03)
--- NOTE | 2023-02-15 17:09 | Hospitalist Progress Note ---
Date of Service February 15, 2023 Assessment & Plan (1) Abdominal pain: (2) UTI (urinary tract infection): Plan: per Dr. Narvaez's notes with addendum: Patient is 77 y/o M with PMH CAD s/p PCI, stent, HTN, COPD, bronchiectasis, CKD III-IV, GERD, Sepulveda's esophagus, neuropathy, dementia, SVT versus paroxysmal atrial fibrillation, RBBB, and others listed below presented to ER with complaint of abdominal pain In ER vitals stable. No leukocytosis, LFTs WNL CT abdomen pelvis: 1. Limited exam. 2. No bowel obstruction or bowel wall thickening. 3. Moderate-sized hiatal hernia. 4. Colonic diverticulosis. 5. Cholelithiasis. 6. Ventral midline pelvic hernia again noted containing nonobstructive loops of small bowel. 7. Likely subacute L2 compression deformity without retropulsion, new from 09/16/2022. Urine culture positive for E. coli; pansensitive. Currently on ceftriaxone. Was given cefdinir yesterday as he refused IV. Continue for at least 7 days of treatment. 02/15 Afebrile, continue IV ceftriaxone (3) Dementia: (4) Behavioural problem: Plan: Seen by outpatient neurology on the day of the admission. Recommended Seroquel 25 at bedtime. Zyprexa as needed One-to-one observer as needed Psychiatry consulted; recommend Seroquel twice daily and Zyprexa as needed. Patient appears slightly lethargic today; will hold off on addition of Seroquel for now. Monitor. 02/15 Calm Cooperative Continue Seroquel 25 mg p.o. at bedtime As needed Zyprexa (5) Barretts esophagus: Plan: Continue PPI, H2 sabi (6) CAD (coronary artery disease): Plan: S/p PCI, stent Elevated troponin high-sensitivity troponin 23--> 26 (has been higher in prior admissions) Continue aspirin, Plavix, isosorbide, metoprolol succinate, atorvastatin No signs of cardiac symptoms today (7) Hypertension: Plan: Continue metoprolol succinate (8) Chronic kidney disease: Plan: CKD III-IV Creatinine around baseline. Monitor renal functions, avoid nephrotoxic agents when possible (9) COPD (chronic obstructive pulmonary disease): Plan: History COPD/bronchiectasis Continue home inhalers Albuterol as needed Continue home 2 L oxygen at bedtime (10) Chronic anemia: Plan: Hemoglobin same as baseline. 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 Seen resting in bed, awake and alert, mostly confused Not following commands, not answering questions Has good eye contact, occasionally nods, calm No signs of distress or pain Per RN, patient is more cooperative today But appetite has been poor No other issues Review of Systems Review of Systems: all noted and negative except for above Physical Exam Physical Exam: General- not oriented, not in distress, breathing with no effort or accessory muscle use Eyes- anicteric Neck- no JVD Lungs- clear breath sounds bilaterally, no rales/wheezes Heart- normal rate, regular rhythm; no murmurs Abdomen- normal bowel sounds, nondistended, soft, nontender Extremities- no pretibial edema, no calf tenderness Neuro- alert, oriented x0; no other gross focal neurologic deficits Skin- warm & dry Results & Data Results & Data Vital Signs (Past 12 Hours) Vital Signs Temp Pulse Pulse Resp BP BP Pulse Ox 02/15/23 15:54 37.1 C 73 16 121/61 92 02/15/23 11:00 36.5 C 88 16 127/86 91 02/15/23 13:24 98 H 02/15/23 08:00 02/15/23 10:04 36.9 C 80 24 147/94 H 91 02/15/23 07:33 76 18 92 O2 Del Method 02/15/23 15:54 Room Air 02/15/23 11:00 Room Air 02/15/23 13:24 02/15/23 08:00 Room Air 02/15/23 10:04 Room Air 02/15/23 07:33 Room Air all noted and reviewed including below (1) Abdominal pain Abdominal location: generalized Qualified Code(s): R10.84 - Generalized abdominal pain (3) Dementia Dementia type: unspecified type (7) Hypertension Hypertension type: unspecified Qualified Code(s): I10 - Essential (primary) hypertension (8) Chronic kidney disease Chronic kidney disease stage: unspecified stage Qualified Code(s): N18.9 - Chronic kidney disease, unspecified
[2023-02-15] MEDS: cefTRIAXone SODIUM 2,000 MG in DEXTROSE 5% 50 ML IV SCH (17:13)
[2023-02-15] MEDS: CHOLECALCIFEROL 1,000 UNITS 25 MCG TAB PO SCH (20:57)
[2023-02-15] MEDS: QUEtiapine FUMARATE 25 MG TABLET PO SCH (20:58)
[2023-02-15] MEDS: GABAPENTIN 300 MG CAP PO SCH (20:58)
[2023-02-15] MEDS: ATORVASTATIN 40 MG TAB PO SCH (20:58)
[2023-02-15] MEDS: allopurinoL 300 MG TAB PO SCH (20:58)
[2023-02-15] MEDS: MAGNESIUM OXIDE 400 MG TAB PO SCH (20:59)
[2023-02-15] MEDS: ENOXAPARIN INJ 40 MG/0.4 ML SYR SQ SCH (20:59)
[2023-02-15] MEDS: MELATONIN 3 MG TAB PO PRN (21:00)
[2023-02-16] MEDS: D5NSS + 20MEQ KCL 20 MEQ/1,000 ML BAG IV SCH ×2 (02:17→18:44)
[2023-02-16] MEDS: LEVOTHYROXINE SODIUM 75 MCG TABLET PO SCH (05:26)
[2023-02-16] MEDS: BUDESONIDE 0.5 MG/2 ML VIAL (PULMICORT) INH SCH ×2 (07:04→19:20)
[2023-02-16 07:09] LABS: Creatinine Clr Calc Pharmacy 30.4 ml/min; Est GFR (African American) 32.8 ml/min; Est GFR (Non-African American) 28.3 ml/min
[2023-02-16] MEDS: METOPROLOL SUCC 25MG EXT REL TAB PO SCH ×3 (08:46→23:38)
[2023-02-16] MEDS: ISOSORBIDE MONO EXTENDED REL 30 MG TABCR PO SCH (08:46)
[2023-02-16] MEDS: FAMOTIDINE 20 MG TAB PO SCH ×3 (08:47→23:38)
[2023-02-16] MEDS: PANTOprazole 40 MG TAB PO SCH ×3 (08:47→23:38)
[2023-02-16] MEDS: CLOPIDOGREL BISULFATE 75 MG TAB PO SCH (08:47)
[2023-02-16] MEDS: ASPIRIN 81 MG ECTAB PO SCH (08:47)
[2023-02-16] MEDS: cefTRIAXone SODIUM 2,000 MG in DEXTROSE 5% 50 ML IV SCH (15:30)
--- NOTE | 2023-02-16 18:18 | Hospitalist Progress Note ---
Date of Service February 16, 2023 Assessment & Plan (1) Abdominal pain: (2) UTI (urinary tract infection): Plan: per Dr. Narvaez's notes with addendum: Patient is 77 y/o M with PMH CAD s/p PCI, stent, HTN, COPD, bronchiectasis, CKD III-IV, GERD, Sepulveda's esophagus, neuropathy, dementia, SVT versus paroxysmal atrial fibrillation, RBBB, and others listed below presented to ER with complaint of abdominal pain In ER vitals stable. No leukocytosis, LFTs WNL CT abdomen pelvis: 1. Limited exam. 2. No bowel obstruction or bowel wall thickening. 3. Moderate-sized hiatal hernia. 4. Colonic diverticulosis. 5. Cholelithiasis. 6. Ventral midline pelvic hernia again noted containing nonobstructive loops of small bowel. 7. Likely subacute L2 compression deformity without retropulsion, new from 09/16/2022. Urine culture positive for E. coli; pansensitive. Currently on ceftriaxone. Was given cefdinir yesterday as he refused IV. Continue for at least 7 days of treatment. 02/16 Afebrile, continue IV ceftriaxone (3) Dementia: (4) Behavioural problem: Plan: Seen by outpatient neurology on the day of the admission. Recommended Seroquel 25 at bedtime. Zyprexa as needed One-to-one observer as needed Psychiatry consulted; recommend Seroquel twice daily and Zyprexa as needed. Patient appears slightly lethargic today; will hold off on addition of Seroquel for now. Monitor. 02/16 Still having episodes of agitation We will try Seroquel 12.5 mg twice daily starting tomorrow As needed Zyprexa (5) Barretts esophagus: Plan: Continue PPI, H2 sabi (6) CAD (coronary artery disease): Plan: S/p PCI, stent Elevated troponin high-sensitivity troponin 23--> 26 (has been higher in prior admissions) Continue aspirin, Plavix, isosorbide, metoprolol succinate, atorvastatin No signs of cardiac symptoms today (7) Hypertension: Plan: Continue metoprolol succinate (8) Chronic kidney disease: Plan: CKD III-IV Creatinine around baseline. Monitor renal functions, avoid nephrotoxic agents when possible (9) COPD (chronic obstructive pulmonary disease): Plan: History COPD/bronchiectasis Continue home inhalers Albuterol as needed Continue home 2 L oxygen at bedtime (10) Chronic anemia: Plan: Hemoglobin same as baseline. 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 Seen resting in bed, comfortable, awake but eyes mostly closed, does not follow commands or answer questions No signs of agitation, pain, distress Per RN, patient not have breakfast No other new issue Review of Systems Review of Systems: all noted and negative except for above Physical Exam Physical Exam: General-not oriented, not in distress, breathing with no effort or accessory muscle use Eyes- anicteric Neck- no JVD Lungs- clear breath sounds bilaterally, no crackles or wheezes Heart- normal rate, regular rhythm; no murmurs Abdomen- normal bowel sounds, nondistended, soft, no tenderness Extremities- no pretibial edema, no calf tenderness Neuro- alert, not oriented; no new gross focal neurologic deficit Skin- warm & dry Results & Data Results & Data Vital Signs (Past 12 Hours) Vital Signs Temp Pulse Pulse Resp BP Pulse Ox O2 Del Method 02/16/23 16:46 76 02/16/23 16:30 37.2 C 106 H 20 135/80 97 Room Air 02/16/23 11:45 36.9 C 73 16 159/105 H 93 Room Air 02/16/23 09:15 Room Air 02/16/23 07:48 36.8 C 77 16 158/86 H 92 Room Air 02/16/23 07:39 76 all noted and reviewed including below (1) Abdominal pain Abdominal location: generalized Qualified Code(s): R10.84 - Generalized abdominal pain (3) Dementia Dementia type: unspecified type (7) Hypertension Hypertension type: unspecified Qualified Code(s): I10 - Essential (primary) hypertension (8) Chronic kidney disease Chronic kidney disease stage: unspecified stage Qualified Code(s): N18.9 - Chronic kidney disease, unspecified
[2023-02-16] MEDS: MELATONIN 3 MG TAB PO PRN (21:14)
[2023-02-16] MEDS: MAGNESIUM OXIDE 400 MG TAB PO SCH ×2 (21:15→23:38)
[2023-02-16] MEDS: GABAPENTIN 300 MG CAP PO SCH ×2 (21:15→23:38)
[2023-02-16] MEDS: allopurinoL 300 MG TAB PO SCH ×2 (21:15→23:33)
[2023-02-16] MEDS: QUEtiapine FUMARATE 25 MG TABLET PO SCH ×2 (21:15→23:38)
[2023-02-16] MEDS: CHOLECALCIFEROL 1,000 UNITS 25 MCG TAB PO SCH ×2 (21:15→23:37)
[2023-02-16] MEDS: ENOXAPARIN INJ 40 MG/0.4 ML SYR SQ SCH (21:16)
[2023-02-16] MEDS: ATORVASTATIN 40 MG TAB PO SCH ×2 (21:16→23:33)
[2023-02-16] MEDS: OLANZapine 10 MG/2.1 ML SDV IM PRN (23:18)
[2023-02-17] MEDS: LEVOTHYROXINE SODIUM 75 MCG TABLET PO SCH (04:59)
[2023-02-17] MEDS: BUDESONIDE 0.5 MG/2 ML VIAL (PULMICORT) INH SCH (06:57)
[2023-02-17 07:38] LABS: BUN Creatinine Ratio 18.3 (10-20); Calcium 9.7 mg/dl (8.6-10.3); Creatinine Clr Calc Pharmacy 38.8 ml/min; Est GFR (African American) 44.1 ml/min; Est GFR (Non-African American) 38.1 ml/min; Potassium 4.2 mmol/L (3.5-5.1)
[2023-02-17] MEDS ORDERED: DEXTROSE 5% 1,000 ML IV SCH (09:45)
[2023-02-17] MEDS: D5NSS + 20MEQ KCL 20 MEQ/1,000 ML BAG IV SCH (09:52)
[2023-02-17] MEDS: METOPROLOL SUCC 25MG EXT REL TAB PO SCH ×2 (09:55→22:16)
[2023-02-17] MEDS: ACETAMINOPHEN 325 MG TAB PO PRN (09:55)
[2023-02-17] MEDS: ISOSORBIDE MONO EXTENDED REL 30 MG TABCR PO SCH (09:56)
[2023-02-17] MEDS: CLOPIDOGREL BISULFATE 75 MG TAB PO SCH (09:56)
[2023-02-17] MEDS: FAMOTIDINE 20 MG TAB PO SCH ×2 (09:56→22:16)
[2023-02-17] MEDS: PANTOprazole 40 MG TAB PO SCH ×2 (09:56→22:16)
[2023-02-17] MEDS: ASPIRIN 81 MG ECTAB PO SCH (09:56)
[2023-02-17] MEDS: QUEtiapine FUMARATE 25 MG TABLET PO SCH ×2 (12:54→22:16)
[2023-02-17] MEDS: cefTRIAXone SODIUM 2,000 MG in DEXTROSE 5% 50 ML IV SCH (15:57)
[2023-02-17 17:27] LABS: BUN Creatinine Ratio 17.1 (10-20); Calcium 8.1 mg/dl (8.6-10.3); Est GFR (African American) 45.7 ml/min; Est GFR (Non-African American) 39.5 ml/min; Potassium 3.3 mmol/L (3.5-5.1)
--- NOTE | 2023-02-17 17:27 | Hospitalist Progress Note ---
Date of Service February 17, 2023 Assessment & Plan (1) Abdominal pain: (2) UTI (urinary tract infection): Plan: per Dr. Narvaez's notes with addendum: Patient is 77 y/o M with PMH CAD s/p PCI, stent, HTN, COPD, bronchiectasis, CKD III-IV, GERD, Sepulveda's esophagus, neuropathy, dementia, SVT versus paroxysmal atrial fibrillation, RBBB, and others listed below presented to ER with complaint of abdominal pain In ER vitals stable. No leukocytosis, LFTs WNL CT abdomen pelvis: 1. Limited exam. 2. No bowel obstruction or bowel wall thickening. 3. Moderate-sized hiatal hernia. 4. Colonic diverticulosis. 5. Cholelithiasis. 6. Ventral midline pelvic hernia again noted containing nonobstructive loops of small bowel. 7. Likely subacute L2 compression deformity without retropulsion, new from 09/16/2022. Urine culture positive for E. coli; pansensitive. Currently on ceftriaxone. Was given cefdinir yesterday as he refused IV. Continue for at least 7 days of treatment. 02/17 Afebrile, continue IV ceftriaxone (3) Dementia: (4) Behavioural problem: Plan: Seen by outpatient neurology on the day of the admission. Recommended Seroquel 25 at bedtime. Zyprexa as needed One-to-one observer as needed Psychiatry consulted; recommend Seroquel twice daily and Zyprexa as needed. Patient appears slightly lethargic today; will hold off on addition of Seroquel for now. Monitor. 02/17 Still having episodes of agitation We will try Seroquel 12.5 mg twice daily As needed Zyprexa discussed with Psych (5) Barretts esophagus: Plan: Continue PPI, H2 sabi (6) CAD (coronary artery disease): Plan: S/p PCI, stent Elevated troponin high-sensitivity troponin 23--> 26 (has been higher in prior admissions) Continue aspirin, Plavix, isosorbide, metoprolol succinate, atorvastatin No signs of cardiac symptoms today (7) Hypertension: Plan: Continue metoprolol succinate (8) Chronic kidney disease: Plan: CKD III-IV Creatinine around baseline. Monitor renal functions, avoid nephrotoxic agents when possible (9) COPD (chronic obstructive pulmonary disease): Plan: History COPD/bronchiectasis Continue home inhalers Albuterol as needed Continue home 2 L oxygen at bedtime (10) Chronic anemia: Plan: Hemoglobin same as baseline. Monitor H&H (11) Hypothyroid: Plan: Continue levothyroxine (12) Gout: Plan: Continue allopurinol (13) PAF (paroxysmal atrial fibrillation): Plan: History paroxysmal atrial fibrillation versus SVT seen on prior surveillance monitor Continue metoprolol succinate DVT Prophylaxis Lovenox SQ Disposition Lives at home PT and OT eval Admission and Anticipated Discharge Date Admission Date: February 10, 2023 Subjective ff up for UTI, delirium, etc required Zyprexa overnight seen resting in bed, eyes mostly closed mumbles words when asked questions no signs of distress, pain no other new symptoms Review of Systems Review of Systems: all noted and negative except for above Physical Exam Physical Exam: General- not oriented, not in distress, breathing with no effort or accessory muscle use Eyes- anicteric Neck- no JVD Lungs- clear breath sounds bilaterally, no crackles/wheezing Heart- normal rate, regular rhythm; no murmurs Abdomen- normal bowel sounds, nondistended, soft, nontender Extremities- no pretibial edema, no calf tenderness Neuro- no new gross focal neurologic deficits Skin- warm & dry Results & Data Results & Data Vital Signs (Past 12 Hours) Vital Signs Temp Pulse Pulse Pulse Resp BP BP 02/17/23 16:52 65 02/17/23 15:36 36.8 C 59 L 16 120/65 02/17/23 11:29 37 C 75 19 137/91 02/17/23 09:00 Pulse Ox O2 Del Method 02/17/23 16:52 02/17/23 15:36 97 Room Air 02/17/23 11:29 96 Room Air 02/17/23 09:00 Room Air all noted and reviewed including below (1) Abdominal pain Abdominal location: generalized Qualified Code(s): R10.84 - Generalized abdominal pain (3) Dementia Dementia type: unspecified type (7) Hypertension Hypertension type: unspecified Qualified Code(s): I10 - Essential (primary) hypertension (8) Chronic kidney disease Chronic kidney disease stage: unspecified stage Qualified Code(s): N18.9 - Chronic kidney disease, unspecified
[2023-02-17] MEDS: POTASSIUM CHLORIDE / WTR 10 MEQ/100 ML PLCT IV SCH ×4 (18:25→21:16)
[2023-02-17] MEDS: D5W AND 1/2NSS 1,000 ML IV SCH (18:25)
[2023-02-17] MEDS: ENOXAPARIN INJ 40 MG/0.4 ML SYR SQ SCH ×2 (22:12→22:16)
[2023-02-17] MEDS: ATORVASTATIN 40 MG TAB PO SCH (22:15)
[2023-02-17] MEDS: allopurinoL 300 MG TAB PO SCH (22:15)
[2023-02-17] MEDS: CHOLECALCIFEROL 1,000 UNITS 25 MCG TAB PO SCH (22:15)
[2023-02-17] MEDS: MAGNESIUM OXIDE 400 MG TAB PO SCH (22:16)
[2023-02-17] MEDS: GABAPENTIN 300 MG CAP PO SCH (22:16)
[2023-02-18] MEDS: LEVOTHYROXINE SODIUM 75 MCG TABLET PO SCH (05:57)
[2023-02-18] MEDS: ASPIRIN 81 MG ECTAB PO SCH (08:40)
[2023-02-18] MEDS: FAMOTIDINE 20 MG TAB PO SCH ×2 (08:40→20:32)
[2023-02-18] MEDS: CLOPIDOGREL BISULFATE 75 MG TAB PO SCH (08:40)
[2023-02-18] MEDS: METOPROLOL SUCC 25MG EXT REL TAB PO SCH ×2 (08:40→20:31)
[2023-02-18] MEDS: ISOSORBIDE MONO EXTENDED REL 30 MG TABCR PO SCH (08:40)
[2023-02-18] MEDS: QUEtiapine FUMARATE 25 MG TABLET PO SCH ×2 (08:40→20:32)
[2023-02-18] MEDS: PANTOprazole 40 MG TAB PO SCH ×2 (08:40→20:32)
--- NOTE | 2023-02-18 10:35 | Communication Note ---
Date of Service: February 18, 2023 Moody continues to have episodes of agitation and remains very delirious in addition to his dementia. Has been requiring intermittent IM medication. This morning refused all po medication, refusing to eat breakfast and asking for a international accounting manager. A/P: Ongoing agitation related to delirium superimposed on advanced dementia. -Recommend repeat EKG if he can tolerate this as last QTc was >500ms -If repeat QTc is less than 500ms then could consider stopping seroquel and starting olanzapine 2.5mg ODT BID as he may better tolerate oral dissolvable formulation -For behavioral emergency: olanzapine 2.5mg IM (DO NOT exceed 10mg in 24 hours). Continue to exercise extreme caution in using IM medication given his elevated QTc, ideally QTc should be <500ms. Lorazepam could be used as an alterative for acute agitation though this will likely make delirium worse but this would be a safer option if his QTc remains >500ms or elevates further. -Encourage family involvement if possible to help with reorientation and reassurance
[2023-02-18 11:08] LABS: Calcium 9.3 mg/dl (8.6-10.3); Creatinine Clr Calc Pharmacy 43.6 ml/min; Potassium 3.6 mmol/L (3.5-5.1)
[2023-02-18] MEDS: D5W AND 1/2NSS 1,000 ML IV SCH (11:20)
[2023-02-18] MEDS: cefTRIAXone SODIUM 2,000 MG in DEXTROSE 5% 50 ML IV SCH (15:43)
[2023-02-18] MEDS: MAGNESIUM OXIDE 400 MG TAB PO SCH (20:31)
[2023-02-18] MEDS: CHOLECALCIFEROL 1,000 UNITS 25 MCG TAB PO SCH (20:31)
[2023-02-18] MEDS: GABAPENTIN 300 MG CAP PO SCH (20:31)
[2023-02-18] MEDS: ATORVASTATIN 40 MG TAB PO SCH (20:31)
[2023-02-18] MEDS: allopurinoL 300 MG TAB PO SCH (20:31)
[2023-02-18] MEDS: ENOXAPARIN INJ 40 MG/0.4 ML SYR SQ SCH (20:39)
[2023-02-19] MEDS: D5W AND 1/2NSS 1,000 ML IV SCH (02:27)
[2023-02-19] MEDS: LEVOTHYROXINE SODIUM 75 MCG TABLET PO SCH (05:44)
[2023-02-19 08:38] LABS: BUN Creatinine Ratio 14.7 (10-20); Calcium 9.2 mg/dl (8.6-10.3); Creatinine Clr Calc Pharmacy 48.4 ml/min; Est GFR (African American) 57.4 ml/min; Est GFR (Non-African American) 49.5 ml/min; Potassium 3.7 mmol/L (3.5-5.1)
[2023-02-19] MEDS: FAMOTIDINE 20 MG TAB PO SCH (09:59)
[2023-02-19] MEDS: CLOPIDOGREL BISULFATE 75 MG TAB PO SCH (09:59)
[2023-02-19] MEDS: METOPROLOL SUCC 25MG EXT REL TAB PO SCH (09:59)
[2023-02-19] MEDS: PANTOprazole 40 MG TAB PO SCH (09:59)
[2023-02-19] MEDS: QUEtiapine FUMARATE 25 MG TABLET PO SCH ×2 (09:59→12:55)
[2023-02-19] MEDS: ASPIRIN 81 MG ECTAB PO SCH (09:59)
[2023-02-19] MEDS: ISOSORBIDE MONO EXTENDED REL 30 MG TABCR PO SCH (09:59)
[2023-02-19] MEDS: ACETAMINOPHEN 325 MG TAB PO PRN (15:07)
--- NOTE | 2023-02-19 15:51 | Hospitalist Progress Note ---
Date of Service February 19, 2023 delayed entry date of service noted above Assessment & Plan (1) Abdominal pain: (2) UTI (urinary tract infection): Plan: per Dr. Narvaez's notes with addendum: Patient is 77 y/o M with PMH CAD s/p PCI, stent, HTN, COPD, bronchiectasis, CKD III-IV, GERD, Sepulveda's esophagus, neuropathy, dementia, SVT versus paroxysmal atrial fibrillation, RBBB, and others listed below presented to ER with complaint of abdominal pain In ER vitals stable. No leukocytosis, LFTs WNL CT abdomen pelvis: 1. Limited exam. 2. No bowel obstruction or bowel wall thickening. 3. Moderate-sized hiatal hernia. 4. Colonic diverticulosis. 5. Cholelithiasis. 6. Ventral midline pelvic hernia again noted containing nonobstructive loops of small bowel. 7. Likely subacute L2 compression deformity without retropulsion, new from 09/16/2022. Urine culture positive for E. coli; pansensitive. Currently on ceftriaxone. Was given cefdinir yesterday as he refused IV. Continue for at least 7 days of treatment. 02/19 Afebrile, patient received IV ceftriaxone x8 days Discharge on cefdinir 300 mg twice daily x2 more days (3) Dementia: (4) Behavioural problem: Plan: Seen by outpatient neurology on the day of the admission. Recommended Seroquel 25 at bedtime. Zyprexa as needed One-to-one observer as needed Psychiatry consulted; recommend Seroquel twice daily and Zyprexa as needed. Patient appears slightly lethargic today; will hold off on addition of Seroquel for now. Monitor. 02/19 Doing better with Seroquel 12.5 mg twice daily--continue at home As needed Zyprexa discussed with Psych (5) Barretts esophagus: Plan: Continue PPI, H2 sabi (6) CAD (coronary artery disease): Plan: S/p PCI, stent Elevated troponin high-sensitivity troponin 23--> 26 (has been higher in prior admissions) Continue aspirin, Plavix, isosorbide, metoprolol succinate, atorvastatin No signs of cardiac symptoms today (7) Hypertension: Plan: Continue metoprolol succinate (8) Chronic kidney disease: Plan: CKD III-IV Creatinine around baseline. Monitor renal functions, avoid nephrotoxic agents when possible (9) COPD (chronic obstructive pulmonary disease): Plan: History COPD/bronchiectasis Continue home inhalers Albuterol as needed Continue home 2 L oxygen at bedtime (10) Chronic anemia: Plan: Hemoglobin same as baseline. 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 Seen at bedside with family, and son at the bedside Patient is awake and alert, nods to questions, seems to be more oriented States he feels fine Patient's family reports that the patient is mostly back to his baseline According to them, the patient does much better when he returns home from the hospital They would like to take the patient home, they have been providing care for the patient and that he will be able to take care of him at home Patient aware that the patient has not gotten out of bed since admission and is very weak, will likely need acute rehab or intermediate facility The patient's family is adamant on taking him back home under their care greenhouse manager consulted Review of Systems Review of Systems: all noted and negative except for above Physical Exam Physical Exam: General- oriented to person, not in distress,. breathing with no effort or acces babs muscle use Eyes- anicteric Neck- no JVD Lungs- clear breath sounds bilaterally, no crackles or wheezing Heart- normal rate, regular rhythm; no murmurs Abdomen- normal bowel sounds, nondistended, soft, no tenderness Extremities- no pretibial edema, no calf tenderness Neuro- alert, oriented x 1; no gross focal neurologic deficits Skin- warm & dry Results & Data Results & Data Vital Signs (Past 12 Hours) Vital Signs Temp Pulse Pulse Resp BP Pulse Ox O2 Del Method 02/19/23 14:10 90 02/19/23 15:02 37.0 C 76 20 152/88 H 93 Room Air 02/19/23 11:59 36.7 C 82 20 139/96 94 Room Air 02/19/23 08:11 37.0 C 89 20 160/91 H 95 Room Air 02/19/23 07:51 Room Air 02/19/23 06:09 88 all noted and reviewed including below (1) Abdominal pain Abdominal location: generalized Qualified Code(s): R10.84 - Generalized abdominal pain (3) Dementia Dementia type: unspecified type (7) Hypertension Hypertension type: unspecified Qualified Code(s): I10 - Essential (primary) hypertension (8) Chronic kidney disease Chronic kidney disease stage: unspecified stage Qualified Code(s): N18.9 - Chronic kidney disease, unspecified
--- NOTE | 2023-02-20 17:10 | Discharge Summary ---
Discharge Summary Date of Service February 20, 2023 Notes For Next Care Provider Medication Changes From Visit Cefdinir 300 mg p.o. twice daily x2 days Change Seroquel 25 mg daily to 12.5 mg p.o. twice daily Admission HPI Per Admitting Provider Patient is 77 y/o M with PMH CAD s/p PCI, stent, HTN, COPD, bronchiectasis, CKD III-IV, GERD, Sepulveda's esophagus, neuropathy, dementia, SVT versus paroxysmal atrial fibrillation, RBBB, and others listed below presented to ER with complaint of abdominal pain today. Limited history obtained from patient secondary to mental status. Additional history obtained from chart review and patient's . reports that today patient had neurology appointment to discuss dementia. Reports patient's dementia symptoms have progressed and has b een paranoid, acting out, delusions, visual hallucinations. He was prescribed Seroquel 25mg HS to start today. reports patient at baseline mental status today, however was given Ativan in ER and is now somnolent. She reports that they were leaving doctor's office and getting patient in car. Patient wanted to sit in the backseat. States had hard time getting patient in the backseat and when he got in the backseat he was complaining of abdominal pain. Family reports he was pointing to his lower abdomen as site of pain and seemed to be in significant pain. There is report to the ER provider that patient may have had syncopal episode however does not state that that his provider. Patient was brought to ER secondary to abdominal pain. Upon arrival to ER it is reported patient was noncooperative and patient was given 1 mg Ativan and work-up was obtained. denies any known fever, chills, nausea, vomiting, diarrhea. She reports she sometimes gets patient stool softeners for constipation however states patient had a bowel movement yesterday. Denies patient complaining of HAs, or chest pain recently. Chronic COPD and uses nebs daily but denies any acute SOB or worsening cough, extremity edema, hematuria, dysuria, melena, hematochezia. Admission Exam Per Admitting Provider General: no acute distress, currently somnolent after receiving IV Ativan in ER, WDWN Head: normocephalic, atraumatic Eyes: PERRL, EOM's intact, conjunctiva non-injected, anicteric ENT: normal inspection external ears, nose, mucous membranes moist Neck: supple, trachea midline Lungs: clear, no respiratory distress, no wheezing/rhonchi/rales CV: RRR, no murmur, no pretibial edema Abd: protuberant, normal BS, soft, no apparent tenderness to palpation Ext: no cyanosis, no calf tenderness Neuro: +somnolent Skin: warm, dry Principal Dx & Hospital Course #1 = Principal Diagnosis (1) Abdominal pain: (2) UTI (urinary tract infection): per Dr. Narvaez's notes with addendum: Patient is 77 y/o M with PMH CAD s/p PCI, stent, HTN, COPD, bronchiectasis, CKD III-IV, GERD, Sepulveda's esophagus, neuropathy, dementia, SVT versus paroxysmal atrial fibrillation, RBBB, and others listed below presented to ER with complai nt of abdominal pain In ER vitals stable. No leukocytosis, LFTs WNL CT abdomen pelvis: 1. Limited exam. 2. No bowel obstruction or bowel wall thickening. 3. Moderate-sized hiatal hernia. 4. Colonic diverticulosis. 5. Cholelithiasis. 6. Ventral midline pelvic hernia again noted containing nonobstructive loops of small bowel. 7. Likely subacute L2 compression deformity without retropulsion, new from 09/16/2022. Urine culture positive for E. coli; pansensitive. Currently on ceftriaxone. Was given cefdinir yesterday as he refused IV. Continue for at least 7 days of treatment. 02/19 Afebrile, patient received IV ceftriaxone x8 days Discharge on cefdinir 300 mg twice daily x2 more days (3) Dementia: (4) Behavioural problem: Seen by outpatient neurology on the day of the admission. Recommended Seroquel 25 at bedtime. Zyprexa as needed One-to-one observer as needed Psychiatry consulted; recommend Seroquel twice daily and Zyprexa as needed. Patient appears slightly lethargic today; will hold off on addition of Seroquel for now. Monitor. 02/19 Doing better with Seroquel 12.5 mg twice daily--continue at home As needed Zyprexa discussed with Psych (5) Barretts esophagus: Continue PPI, H2 sabi (6) CAD (coronary artery disease): S/p PCI, stent Elevated troponin high-sensitivity troponin 23--> 26 (has been higher in prior admissions) Continue aspirin, Plavix, isosorbide, metoprolol succinate, atorvastatin No signs of cardiac symptoms today (7) Hypertension: Continue metoprolol succinate (8) Chronic kidney disease: CKD III-IV Creatinine around baseline. Monitor renal functions, avoid nephrotoxic agents when possible (9) COPD (chronic obstructive pulmonary disease): History COPD/bronchiectasis Continue home inhalers Albuterol as needed Continue home 2 L oxygen at bedtime (10) Chronic anemia: Hemoglobin same as baseline. 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 breathing with no effort or accessory muscle use Eyes- anicteric Neck- no JVD Lungs- clear breath sounds bilaterally, no crackles or wheezing Heart- normal rate, regular rhythm; no murmurs Abdomen- normal bowel sounds, nondistended, soft, no tenderness Extremities- no pretibial edema, no calf tenderness Neuro- alert, oriented x 1; no gross focal neurologic deficits Skin- warm & dry Updated Medication List Medication Instructions Recorded Confirmed Type atorvastatin 80 mg tablet 80 mg PO QPM 06/14/18 02/10/23 History cholecalciferol (vitamin D3) 50 2,000 unit PO HS 06/14/18 02/10/23 History mcg (2,000 unit) capsule (Vitamin D3) docusate sodium 100 mg capsule 100 mg PO BID PRN Constipation 06/14/18 02/10/23 History famotidine 20 mg tablet 20 mg PO BID 06/14/18 02/10/23 History ipratropium 20 mcg-albuterol 100 1 puff inhalation QID PRN 06/14/18 02/10/23 History mcg/actuation mist for inhalation Cough/WHEEZING (Combivent Respimat) metoprolol succinate 25 mg 25 mg PO BID 06/14/18 02/10/23 History tablet,extended release 24 hr nitroglycerin 0.4 mg sublingual 1 tab sublingual UD PRN Angina 06/14/18 02/10/23 History tablet oxybutynin chloride 5 mg tablet 5 mg PO BID 06/14/18 02/10/23 History albuterol sulfate 2.5 mg/3 mL 2.5 mg inhalation QID PRN 01/07/19 02/10/23 History (0.083 %) solution for nebulization Shortness Of Breath clopidogrel 75 mg tablet (Plavix) 75 mg PO QAM 11/03/19 02/10/23 History isosorbide mononitrate 30 mg 30 mg PO QAM 01/28/20 02/10/23 History tablet,extended release 24 hr aspirin 81 mg tablet,delayed 81 mg PO QAM 09/18/20 02/10/23 History release cyanocobalamin (vitamin B-12) 1,000 mcg subcut MONTHLY 09/18/20 02/10/23 History 1,000 mcg/mL injection solution tramadol 50 mg tablet 50 mg PO Q12 PRN Pain 09/18/20 02/10/23 History valacyclovir 500 mg tablet 500 mg PO BID PRN RECURRENT EPISODE 09/18/20 02/10/23 History levothyroxine 75 mcg tablet 75 mcg PO QAM 09/09/21 02/10/23 History (Synthroid) magnesium oxide 400 mg (241.3 mg 400 mg PO HS 09/09/21 02/10/23 History magnesium) tablet multivitamin 1 tab PO HS 09/09/21 02/10/23 History allopurinol 300 mg tablet 300 mg PO PM 12/04/22 02/10/23 History pantoprazole 40 mg tablet,delayed 40 mg PO BID #60 tabs 01/14/23 02/10/23 Rx release arformoterol 15 mcg/2 mL solution 2 ml inhalation BID 02/10/23 02/10/23 History for nebulization budesonide 0.5 mg/2 mL suspension 0.25 mg inhalation BID 02/10/23 02/10/23 History for nebulization calcium carbonate 200 mg calcium 400 mg PO BID PRN Acid Reflux 02/10/23 02/10/23 History (500 mg) chewable tablet (Tums) gabapentin 300 mg capsule 300 mg PO HS 02/10/23 02/10/23 History lanolin alcohols-mineral 1 applic topical DAILY PRN Dry Skin 02/10/23 02/10/23 History oil-w.petrolatum-ceresin topical cream (Eucerin topical cream) melatonin 5 mg tablet 5 mg PO HS 02/10/23 02/10/23 History triamcinolone acetonide 0.1 % 1 applic topical BID PRN flare up 02/10/23 02/10/23 History topical cream cefdinir 250 mg/5 mL oral 300 mg (6 mL) PO BID 2 days #24 mL 02/19/23 Rx suspension quetiapine 25 mg tablet 12.5 mg PO BID 30 days #0 tabs 02/19/23 02/10/23 Rx Hospital Stay Data Consultations 02/10/23 15:02 ED Decision to Admit Stat 02/14/23 10:04 Consult Psychiatry Routine Diagnostic Imagining Performed 02/10/23 12:06 CT abd pelvis wo con Stat OMPARISON STUDY: Upper GI series 02/01/2023, CT 09/16/2022 FINDINGS: Limited study secondary to respiratory motion artifact and upper extremity positioning. Cardiomegaly with extensive coronary artery calcifications. Lung bases are generally clear. No pneumatosis or pneumoperitoneum. Streak artifact from the hip arthroplasties limits evaluation of the pelvis. The unenhanced spleen, mildly atrophic pancreas and adrenal glands are within normal limits. Mild cholelithiasis. Unremarkable liver. Mild cortical thinning of the kidneys. No hydronephrosis. Decompressed bladder with mild wall thickening. Atherosclerosis of the aorta. 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 Moderate sized hiatal hernia. Trace free fluid within the hernia sac. No bowel junction or bowel wall thickening. Colonic diverticulosis. Normal appendix. No ascites or mesenteric inflammation. Ventral hernia within the midline pelvis is again noted containing mesenteric fat and nonobstructed loops of small bowel. No acute fracture identified. Likely benign peripherally sclerotic 4.2 cm lucent focus of the left iliac bone again noted. 40% L2 compression deformity without retropulsion, new from prior. IMPRESSION: 1. Limited exam as above. 2. No bowel obstruction or bowel wall thickening. 3. Moderate-sized hiatal hernia. 4. Colonic diverticulosis. 5. Cholelithiasis. 6. Ventral midline pelvic hernia again noted containing nonobstructive loops of small bowel. 7. Likely subacute L2 compression deformity without retropulsion, new from 09/16/2022. ACT 112: Negative or not required by law. The above report was generated using voice recognition software. It may contain grammatical, syntax or spelling errors. Pending Results Patient Have Any Pending Studies at Discharge: No Discharge Instructions Given to Patient (Per Discharging Provider) PLEASE REFER TO YOUR NEW MEDICATION LIST AND FOLLOW INSTRUCTIONS CAREFULLY. YOUR NEW MEDICATIONS INCLUDE: CEFDINIR- antibiotic for UTI Split Seroquel to 12.5mg twice a day. Please continue BOOST three times a day. PLEASE CALL YOUR PRIMARY CARE PHYSICIAN OR RETURN TO THE ER IF WITH WORSENING OF SYMPTOMS, INCLUDING fever/chills, weakness, poor appetite, nausea/vomiting, change in mental status. FOLLOW UP WITH PRIMARY CARE PHYSICIAN IN 1 WEEK. Total Time Total Time Spent Total Time Spent (In Minutes): > 30 minutes
--- NOTE | 2023-02-20 17:12 | Hospitalist Progress Note ---
Date of Service February 20, 2023 delayed entry date of service 02/18 Assessment & Plan (1) Abdominal pain: (2) UTI (urinary tract infection): Plan: per Dr. Narvaez's notes with addendum: Patient is 77 y/o M with PMH CAD s/p PCI, stent, HTN, COPD, bronchiectasis, CKD III-IV, GERD, Sepulveda's esophagus, neuropathy, dementia, SVT versus paroxysmal atrial fibrillation, RBBB, and others listed below presented to ER with complaint of abdominal pain In ER vitals stable. No leukocytosis, LFTs WNL CT abdomen pelvis: 1. Limited exam. 2. No bowel obstruction or bowel wall thickening. 3. Moderate-sized hiatal hernia. 4. Colonic diverticulosis. 5. Cholelithiasis. 6. Ventral midline pelvic hernia again noted containing nonobstructive loops of small bowel. 7. Likely subacute L2 compression deformity without retropulsion, new from 09/16/2022. Urine culture positive for E. coli; pansensitive. Currently on ceftriaxone. Was given cefdinir yesterday as he refused IV. Continue for at least 7 days of treatment. 02/18 Stable Afebrile, continue IV ceftriaxone (3) Dementia: (4) Behavioural problem: Plan: Seen by outpatient neurology on the day of the admission. Recommended Seroquel 25 at bedtime. Zyprexa as needed One-to-one observer as needed Psychiatry consulted; recommend Seroquel twice daily and Zyprexa as needed. Patient appears slightly lethargic today; will hold off on addition of Seroquel for now. Monitor. 02/18 Continue with Seroquel 12.5 mg twice daily As needed Zyprexa discussed with Psych (5) Barretts esophagus: Plan: Continue PPI, H2 sabi (6) CAD (coronary artery disease): Plan: S/p PCI, stent Elevated troponin high-sensitivity troponin 23--> 26 (has been higher in prior admissions) Continue aspirin, Plavix, isosorbide, metoprolol succinate, atorvastatin No signs of cardiac symptoms today (7) Hypertension: Plan: Continue metoprolol succinate (8) Chronic kidney disease: Plan: CKD III-IV Creatinine around baseline. Monitor renal functions, avoid nephrotoxic agents when possible (9) COPD (chronic obstructive pulmonary disease): Plan: History COPD/bronchiectasis Continue home inhalers Albuterol as needed Continue home 2 L oxygen at bedtime (10) Chronic anemia: Plan: Hemoglobin same as baseline. 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 Seen resting in bed, awake but confused, mumbling words Not in distress, no signs of pain Still having poor appetite Declining food, medications mostly No any other symptom Review of Systems Review of Systems: all noted and negative except for above Physical Exam Physical Exam: General-not oriented not in distress, breathing with no effort or accessory muscle use Eyes- anicteric Neck- no JVD Lungs- clear breath sounds bilaterally, no rales/wheezes Heart- normal rate, regular rhythm; no murmurs Abdomen- normal bowel sounds, nondistended, soft, no tenderness Extremities- no pretibial edema, no calf tenderness Neuro- alert, not oriented; no new gross focal neurologic deficits Skin- warm & dry (1) Abdominal pain Abdominal location: generalized Qualified Code(s): R10.84 - Generalized abdominal pain (3) Dementia Dementia type: unspecified type (7) Hypertension Hypertension type: unspecified Qualified Code(s): I10 - Essential (primary) hypertension (8) Chronic kidney disease Chronic kidney disease stage: unspecified stage Qualified Code(s): N18.9 - Chronic kidney disease, unspecified
== END 2023-02-19 16:30 | disposition home health service (06) | DRG 689 ==
LOC: ED 11:32 → SUATTDRO 15:38 → 2N 15:38 → 2W 02-13 17:11

== ENCOUNTER 2023-02-21 15:30 | Inpatient (IN) ==
[2023-02-21] MEDS ORDERED: SODIUM CHLORIDE 0.9% 500 ML IV SCH (15:45)
[2023-02-21] MEDS ORDERED: OLANZapine 10 MG/2.1 ML SDV IM STA (15:46)
[2023-02-21] MEDS ORDERED: CEFEPIME 2,000 MG/20 ML VIAL IV STA (15:48)
--- NOTE | 2023-02-21 15:48 | Emergency Department Note ---
Impression & Plan Altered mental status, HERNANDEZ (acute kidney injury), Agitation, Acute dehydration, Elevated troponin, Elevated lactic acid level ED Provider Note NAME: JUAN TYSON AGE: 78 SEX: M : 1945 ARRIVES VIA: Ambulance INFORMANT: [EMS, nursing] ED PROVIDER(S): [Braden Whatley MD] CHIEF COMPLAINT: Altered mental status HISTORY OF PRESENT ILLNESS: The patient is a 78-year-old male who was discharged from our facility yesterday. He was in the hospital for a UTI. During his hospital stay, he had some somnolence thought secondary to his Seroquel. This was decreased to 12.5 mg twice a day. Zyprexa was to be used as needed. Patient seemed to be doing well on the meds. He was discharged on cefdinir as continued coverage for his UTI. As per EMS, the patient is not taking his meds, he will not eat or drink. He is yelling loudly at times and is altered from his mental baseline. The patient can provide no history. He is currently screaming and does swing at staff. He has spit at staff. Given the circumstances, no further history obtainable. PMHx/PSHx: See Below SOCIAL HISTORY: See Below. PHYSICAL EXAM: GENERAL: Patient is in moderate distress, screaming. Agitated. HEENT: No acute trauma, normocephalic atraumatic, mucous membranes dry, no nasal congestion. NECK: No stridor, no adenopathy, no meningismus, trachea is midline. LUNGS: Clear to auscultation bilaterally when listening anterior, no wheeze, no rhonchi, breath sounds equal. HEART: Without murmurs gallops or rubs, regular rate and rhythm. ABDOMEN: Soft, nontender, bowel sounds positive, no peritonitis. EXTREMITIES: No cyanosis, full range of motion of all the joints without pain or difficulty, no signs for acute trauma. NEUROLOGIC: Awake, agitated, screaming, moves all extremities. SKIN: No rash, no jaundice, no diaphoresis. DIFFERENTIAL DIAGNOSIS: Intracranial bleeding, medication noncompliance, dementia, dehydration, infection, electrolyte imbalance, among others. EMERGENCY DEPARTMENT COURSE/PROCEDURES: Prior/Outside records reviewed: Yesterday's discharge summary. EMS notes. ECG per my interpretation: Indication was altered mental status. The ECG shows significant baseline artifact but I do suspect sinus rhythm. There is a right bundle branch block. The rate is 95. No obvious ST elevation. There are some inverted T waves noted laterally. QTc is 500. Compared to an ECG from 11 Feb 2023, the lateral ST changes appear new. Continuous Cardiac Monitoring per my interpretation: An order was placed for continuous cardiac monitoring. The monitor shows a rate of 95 with normal sinus rhythm. Critical Care Note: I have personally spent 42 minutes of critical care time in the direct management of this patient. This includes bedside care, interpretation of diagnostic studies, and testing, discussion with consultants, patient, and family members, and other required patient management activities. This 42 minutes is in excess of all separately billable procedures. MEDICAL DECISION MAKING: There is no leukocytosis. The patient is anemic however, this is baseline looking back at previous testing. There is a normal platelet count. VBG did not show any acidosis or significant CO2 retention. Renal panel testing showed some acute kidney injury with a creatinine of 2.22. There was a subtle anion gap. Magnesium was slightly low at 1.6. Initial lactic acid level was elevated at over 2, repeat lactic acid level is pending. The lactic acid elevation could be consistent with infection or more likely dehydration. No worrisome liver enzyme elevation. Ammonia level was not elevated. The TSH was slightly high however, the T4 was normal. ECG showed significant baseline artifact but no obvious acute ST elevation. Cardiac troponin testing was elevated at over 300, this elevation could be secondary to mismatch or potentially cardiac injury. He has a history of a troponin elevation however, today's value is higher than baseline. COVID test returned negative. Chest x-ray did not show CHF or pneumonia per my review. Brain CT did not show acute bleed or mass effect. On exam, the patient was agitated, uncooperative. He was moving all extremities. Patient received IM Zyprexa, 5 mg, this did seem to help his mental state/agitation. He received a total of 1 L of IV saline. He was given IV magnesium. He was given IV cefepime as empiric antibiotic coverage. Patient presents altered, he has been agitated. He was found to be in acute renal failure with an elevation to his troponin and lactic acid level. He appeared dehydrated clinically. The patient is in need of a hospital stay. He is in no condition for discharge. I did speak with the patient, I spoke with case management, the on-call hospitalist was consulted. DISPOSITION: The patient's presentation and findings warrant a hospital stay. Past Med/Surg History Medical History Anxiety Aortic aneurysm stable 3cm; pcp monitors Barretts esophagus Blood clotting disorder pt unable to verify Chronic anemia Chronic back pain Chronic kidney disease, stage 3 COPD (chronic obstructive pulmonary disease) inhalers and nebulizers daily Coronary artery disease Diverticular disease GERD (gastroesophageal reflux disease) Gout Gracie filter in place Hearing deficit Hyperlipidemia Hypertension Idiopathic neuropathy Myocardial Infarction 2017--follows with Dr. Casanova Neuropathy Nocturnal hypoxemia On home oxygen therapy 2.5L N/C at HS Osteoarthritis Poor historian Prostate cancer sx Recurrent genital herpes simplex (Unknown) Sciatica Sleep apnea oxygen at night Temporomandibular joint disorder Surgical History History of arthroscopic knee surgery History of bilateral cataract extraction History of cardiac cath x5--last 2018 History of colonoscopy History of esophagogastroduodenoscopy (EGD) History of heart artery stent multiple--last 2018 2/2 to restenosis History of hernia repair epigastric History of left shoulder replacement History of lumbar surgery History of mandibular surgery tmj repair History of prostate biopsy malignant History of prostatectomy History of right inguinal hernia repair History of right shoulder replacement History of tooth extraction all teeth removed Status post correction of deviated nasal septum Status post total hip replacement, bilateral Family History Other Family history not known due to adoption Social History Smoking Status: Unknown if ever smoked Tobacco Type: Cigarettes Do You Dip or Chew Tobacco: No; Preferred Language: Mongolian Communication Ability: Impaired Laborer Required: No Beliefs That Will Affect Care: None marital status: Current Living Situation: Spouse Current Living Situation Comment: lives with and son current occupational status: retired How many Children do You have: 4 Feels Safe at Home: Yes Assistive Devices: Cane and Wheelchair Allergies Allergies Allergy/AdvReac Type Severity Reaction Status Date / Time benzocaine Allergy Severe SLOUGHING Verified 01/12/23 21:39 OF SKIN clindamycin Allergy Intermediate RASH Verified 01/12/23 21:39 clobetasol Allergy Intermediate ITCHING Verified 01/12/23 21:39 cyanocobalamin (vitamin B12) Allergy Intermediate Rash Verified 01/12/23 21:39 doxycycline Allergy Intermediate RASH Verified 01/12/23 21:39 Penicillins Allergy Intermediate HIVES Verified 01/12/23 21:39 phenethylamine Allergy Intermediate Itching Verified 01/12/23 21:39 povidone-iodine Allergy Intermediate Hives Verified 01/12/23 21:39 [From Betadine] soap [From Betadine] Allergy Intermediate Hives Verified 01/12/23 21:39 tea tree Allergy Intermediate ITCHING Verified 01/12/23 21:39 lorazepam [From Ativan] AdvReac Mild Confusion Verified 02/10/23 17:19 Home Meds Home Medications Medication Instructions Recorded Confirmed atorvastatin 80 mg tablet 80 mg PO QPM 06/14/18 02/10/23 cholecalciferol (vitamin D3) 50 2,000 unit PO HS 06/14/18 02/10/23 mcg (2,000 unit) capsule (Vitamin D3) docusate sodium 100 mg capsule 100 mg PO BID PRN Constipation 06/14/18 02/10/23 famotidine 20 mg tablet 20 mg PO BID 06/14/18 02/10/23 ipratropium 20 mcg-albuterol 100 1 puff inhalation QID PRN 06/14/18 02/10/23 mcg/actuation mist for inhalation Cough/WHEEZING (Combivent Respimat) metoprolol succinate 25 mg 25 mg PO BID 06/14/18 02/10/23 tablet,extended release 24 hr nitroglycerin 0.4 mg sublingual 1 tab sublingual UD PRN Angina 06/14/18 02/10/23 tablet oxybutynin chloride 5 mg tablet 5 mg PO BID 06/14/18 02/10/23 albuterol sulfate 2.5 mg/3 mL 2.5 mg inhalation QID PRN 01/07/19 02/10/23 (0.083 %) solution for nebulization Shortness Of Breath clopidogrel 75 mg tablet (Plavix) 75 mg PO QAM 11/03/19 02/10/23 isosorbide mononitrate 30 mg 30 mg PO QAM 01/28/20 02/10/23 tablet,extended release 24 hr aspirin 81 mg tablet,delayed 81 mg PO QAM 09/18/20 02/10/23 release cyanocobalamin (vitamin B-12) 1,000 mcg subcut MONTHLY 09/18/20 02/10/23 1,000 mcg/mL injection solution tramadol 50 mg tablet 50 mg PO Q12 PRN Pain 09/18/20 02/10/23 valacyclovir 500 mg tablet 500 mg PO BID PRN RECURRENT EPISODE 09/18/20 02/10/23 levothyroxine 75 mcg tablet 75 mcg PO QAM 09/09/21 02/10/23 (Synthroid) magnesium oxide 400 mg (241.3 mg 400 mg PO HS 09/09/21 02/10/23 magnesium) tablet multivitamin 1 tab PO HS 09/09/21 02/10/23 allopurinol 300 mg tablet 300 mg PO PM 12/04/22 02/10/23 arformoterol 15 mcg/2 mL solution 2 ml inhalation BID 02/10/23 02/10/23 for nebulization budesonide 0.5 mg/2 mL suspension 0.25 mg inhalation BID 02/10/23 02/10/23 for nebulization calcium carbonate 200 mg calcium 400 mg PO BID PRN Acid Reflux 02/10/23 02/10/23 (500 mg) chewable tablet (Tums) gabapentin 300 mg capsule 300 mg PO HS 02/10/23 02/10/23 lanolin alcohols-mineral 1 applic topical DAILY PRN Dry Skin 02/10/23 02/10/23 oil-w.petrolatum-ceresin topical cream (Eucerin topical cream) melatonin 5 mg tablet 5 mg PO HS 02/10/23 02/10/23 triamcinolone acetonide 0.1 % 1 applic topical BID PRN flare up 02/10/23 02/10/23 topical cream Previous Rx's Medication Instructions Recorded pantoprazole 40 mg tablet,delayed 40 mg PO BID #60 tabs 01/14/23 release quetiapine 25 mg tablet 12.5 mg PO BID 30 days #0 tabs 02/19/23 Results & Data (ED) Vital Signs Vital Signs - 24 hr 02/21/23 15:38 02/21/23 15:48 02/21/23 15:48 Temperature 37.7 C H Temperature Source Axillary Pulse Rate 96 H Pulse Rate [Right Apical] 89 Pulse Rate from SpO2 Sensor Respiratory Rate 16 16 Respiratory Effort / Characteristics Non-Labored Spontaneous Non-Labored Spontaneous Respiratory Depth Normal Normal Respiratory Pattern Regular Regular Blood Pressure Blood Pressure Mean Pulse Oximetry 92 93 94 Oxygen Delivery Method Room Air Room Air Room Air Sepsis Recent Fever Within 48 Hours Yes Sepsis New/Unexplained Change in Mental Status Yes Sepsis Action Taken by Nursing No Action Required 02/21/23 15:53 02/21/23 15:52 02/21/23 17:25 Temperature Temperature Source Pulse Rate 95 H 99 H Pulse Rate [Right Apical] Pulse Rate from SpO2 Sensor 96 H Respiratory Rate 30 H Respiratory Effort / Characteristics Respiratory Depth Respiratory Pattern Blood Pressure 135/85 Blood Pressure Mean 101 Pulse Oximetry 94 94 Oxygen Delivery Method Room Air Room Air Sepsis Recent Fever Within 48 Hours Sepsis New/Unexplained Change in Mental Status Sepsis Action Taken by Nursing 02/21/23 18:00 02/21/23 18:47 Temperature Temperature Source Pulse Rate 91 H 87 Pulse Rate [Right Apical] Pulse Rate from SpO2 Sensor 94 H Respiratory Rate 19 Respiratory Effort / Characteristics Respiratory Depth Respiratory Pattern Blood Pressure 137/99 Blood Pressure Mean 111 Pulse Oximetry 94 Oxygen Delivery Method Room Air Sepsis Recent Fever Within 48 Hours Sepsis New/Unexplained Change in Mental Status Sepsis Action Taken by Care Home Medications Current Medication List: was personally reviewed by me Laboratory Data Attestation: I reviewed the patient's lab results. 02/21/23 16:17 02/21/23 16:17 Lab Results 02/21/23 02/21/23 02/21/23 Range/Units 15:59 16:00 16:17 WBC 10.38 (4.8-10.8) K/ul RBC 3.31 L (4.70-6.10) M/uL Hgb 11.5 L (14.0-18.0) g/dl Hct 34.4 L (42.0-52.0) % MCV 103.9 H (80.0-100.0) fL MCH 34.7 H (25.0-34.0) pg MCHC 33.4 (32.0-36.0) g/dL RDW Std Deviation 54.8 H (36.4-46.3) fL RDW Coeff of Zoë 14.2 (11.5-14.5) % Plt Count 283 (130-400) K/uL MPV 11.3 (9.4-12.4) fL Immature Gran % (Auto) 1.3 % Neut % (Auto) 82.4 % Lymph % (Auto) 3.4 % [place] % (Auto) 12.6 % Eos % (Auto) 0.1 % Baso % (Auto) 0.2 % Neut # (Auto) 8.55 H (1.40-6.50) K/uL Lymph # (Auto) 0.35 L (1.2-3.4) K/uL [place] # (Auto) 1.31 H (0.11-0.59) K/uL Eos # (Auto) 0.01 (0-0.50) K/uL Baso # (Auto) 0.02 (0-0.2) K/uL Immature Gran # (Auto) 0.14 (0.01-0.20) K/uL VBG pH (7.36-7.41) VBG pCO2 (38-50) mmHg VBG pO2 mmHg VBG HCO3 mmol/L VBG O2 Saturation % VBG Base Excess mEq/L Sodium (136-145) mmol/L Potassium (3.5-5.1) mmol/L Chloride (98-107) mmol/L Carbon Dioxide (21-32) mmol/L Anion Gap (3-11) BUN (6-23) mg/dl Creatinine (0.6-1.4) mg/dl Est Cr Clr Drug Dosing Est GFR ( Amer) ml/min Est GFR (Non-Af Amer) ml/min BUN/Creatinine Ratio (10-20) Glucose (70-99(Fasting)) mg/dl POC Glucose 150 H (70-99) mg/dl Lactate (0.4-2.0) mmol/L Calcium (8.6-10.3) mg/dl Magnesium (1.7-2.4) mg/dl Total Bilirubin (0.2-1.0) mg/dl AST (13-39) U/L ALT (7-52) U/L Alkaline Phosphatase (34-104) U/L Ammonia (18-72) umol/L Troponin I High Sens (0-20) pg/ml Total Protein (6.0-8.3) gm/dl Albumin (3.4-5.0) gm/dl Globulin (2.5-4.0) gm/dl Albumin/Globulin Ratio (0.9-2) TSH (0.300-4.500) uIu/ml Free T4 (0.61-1.60) ng/dl SARS-CoV-2, RNA, NAAT NEGATIVE (NEGATIVE) 02/21/23 02/21/23 02/21/23 Range/Units 16:17 16:17 16:17 WBC (4.8-10.8) K/ul RBC (4.70-6.10) M/uL Hgb (14.0-18.0) g/dl Hct (42.0-52.0) % MCV (80.0-100.0) fL MCH (25.0-34.0) pg MCHC (32.0-36.0) g/dL RDW Std Deviation (36.4-46.3) fL RDW Coeff of Zoë (11.5-14.5) % Plt Count (130-400) K/uL MPV (9.4-12.4) fL Immature Gran % (Auto) % Neut % (Auto) % Lymph % (Auto) % [place] % (Auto) % Eos % (Auto) % Baso % (Auto) % Neut # (Auto) (1.40-6.50) K/uL Lymph # (Auto) (1.2-3.4) K/uL [place] # (Auto) (0.11-0.59) K/uL Eos # (Auto) (0-0.50) K/uL Baso # (Auto) (0-0.2) K/uL Immature Gran # (Auto) (0.01-0.20) K/uL VBG pH (7.36-7.41) VBG pCO2 (38-50) mmHg VBG pO2 mmHg VBG HCO3 mmol/L VBG O2 Saturation % VBG Base Excess mEq/L Sodium 143 (136-145) mmol/L Potassium 4.0 (3.5-5.1) mmol/L Chloride 110 H (98-107) mmol/L Carbon Dioxide 18 L (21-32) mmol/L Anion Gap 15 H (3-11) BUN 34 H (6-23) mg/dl Creatinine 2.22 H (0.6-1.4) mg/dl Est Cr Clr Drug Dosing Not Reportable Est GFR ( Amer) 31.7 ml/min Est GFR (Non-Af Amer) 27.4 ml/min BUN/Creatinine Ratio 15.3 (10-20) Glucose 146 H (70-99(Fasting)) mg/dl POC Glucose (70-99) mg/dl Lactate (0.4-2.0) mmol/L Calcium 9.3 (8.6-10.3) mg/dl Magnesium 1.6 L (1.7-2.4) mg/dl Total Bilirubin 1.3 H (0.2-1.0) mg/dl AST 24 (13-39) U/L ALT 26 (7-52) U/L Alkaline Phosphatase 77 (34-104) U/L Ammonia 20.0 (18-72) umol/L Troponin I High Sens 381.9 H* (0-20) pg/ml Total Protein 7.1 (6.0-8.3) gm/dl Albumin 3.6 (3.4-5.0) gm/dl Globulin 3.5 (2.5-4.0) gm/dl Albumin/Globulin Ratio 1.0 (0.9-2) TSH 5.629 H (0.300-4.500) uIu/ml Free T4 0.96 (0.61-1.60) ng/dl SARS-CoV-2, RNA, NAAT (NEGATIVE) 02/21/23 02/21/23 Range/Units 16:18 16:18 WBC (4.8-10.8) K/ul RBC (4.70-6.10) M/uL Hgb (14.0-18.0) g/dl Hct (42.0-52.0) % MCV (80.0-100.0) fL MCH (25.0-34.0) pg MCHC (32.0-36.0) g/dL RDW Std Deviation (36.4-46.3) fL RDW Coeff of Zoë (11.5-14.5) % Plt Count (130-400) K/uL MPV (9.4-12.4) fL Immature Gran % (Auto) % Neut % (Auto) % Lymph % (Auto) % [place] % (Auto) % Eos % (Auto) % Baso % (Auto) % Neut # (Auto) (1.40-6.50) K/uL Lymph # (Auto) (1.2-3.4) K/uL [place] # (Auto) (0.11-0.59) K/uL Eos # (Auto) (0-0.50) K/uL Baso # (Auto) (0-0.2) K/uL Immature Gran # (Auto) (0.01-0.20) K/uL VBG pH 7.39 (7.36-7.41) VBG pCO2 35 L (38-50) mmHg VBG pO2 40 mmHg VBG HCO3 21 mmol/L VBG O2 Saturation 62.2 % VBG Base Excess -3.1 mEq/L Sodium (136-145) mmol/L Potassium (3.5-5.1) mmol/L Chloride (98-107) mmol/L Carbon Dioxide (21-32) mmol/L Anion Gap (3-11) BUN (6-23) mg/dl Creatinine (0.6-1.4) mg/dl Est Cr Clr Drug Dosing Est GFR ( Amer) ml/min Est GFR (Non-Af Amer) ml/min BUN/Creatinine Ratio (10-20) Glucose (70-99(Fasting)) mg/dl POC Glucose (70-99) mg/dl Lactate 2.6 H* (0.4-2.0) mmol/L Calcium (8.6-10.3) mg/dl Magnesium (1.7-2.4) mg/dl Total Bilirubin (0.2-1.0) mg/dl AST (13-39) U/L ALT (7-52) U/L Alkaline Phosphatase (34-104) U/L Ammonia (18-72) umol/L Troponin I High Sens (0-20) pg/ml Total Protein (6.0-8.3) gm/dl Albumin (3.4-5.0) gm/dl Globulin (2.5-4.0) gm/dl Albumin/Globulin Ratio (0.9-2) TSH (0.300-4.500) uIu/ml Free T4 (0.61-1.60) ng/dl SARS-CoV-2, RNA, NAAT (NEGATIVE) Administered Medications Discontinued Medications Sodium Chloride (Nss) 500 mls @ 999 mls/hr IV .Q31M MANDY Stop: 02/21/23 16:15 Last Infusion: 02/21/23 16:54 Dose: 0 mls/hr Documented By: Admin: 02/21/23 16:13 Dose: 999 mls/hr Documented By: MOOSE Cefepime HCl (Maxipime) 2,000 mg in 20 mls @ 5 mls/min IV NOW STA; Protocol Stop: 02/21/23 15:51 Last Admin: 02/21/23 16:50 Dose: 5 mls/min Documented By: MOOSE Magnesium Sulfate/Dextrose (Magnesium Sulfate / D5w) 1 gm in 100 mls @ 100 mls/hr IV NOW STA Stop: 02/21/23 18:15 Last Admin: 02/21/23 17:47 Dose: 100 mls/hr Documented By: CLARENCE Sodium Chloride (Nss 1000ml) 500 mls @ 999 mls/hr IV .Q31M ONE Stop: 02/21/23 17:50 Last Infusion: 02/21/23 18:03 Dose: 0 mls/hr Documented By: Admin: 02/21/23 17:30 Dose: 999 mls/hr Documented By: MOOSE Olanzapine (Olanzapine 10 Mg/2.1 Ml Sdv) 5 mg IM NOW STA Stop: 02/21/23 15:47 Last Admin: 02/21/23 16:08 Dose: 5 mg Documented By: OMOSE Imaging Data Radiologist's Impression: Chest X-Ray 02/21/23 15:39 XR chest 1V portable CLINICAL HISTORY: weakness TECHNIQUE: Single frontal radiograph of the chest was obtained. Comparison: Comparison is made to chest radiograph 02/14/2023 FINDINGS: No lines and tubes are seen. The aorta is tortuous. The remainder of the cardiomediastinal silhouette is unremarkable. The lungs are clear. No evidence of pleural effusion or pneumothorax. IMPRESSION: No acute chest disease. ACT 112: Negative or not required by law. Electronically signed by: Vega Olson M.D. 02/21/2023 5:[address] 02/21/23 15:[address] DOSE: 2199.31 mGy.cm HISTORY: Altered mental status. TECHNIQUE: Multiaxial CT images of the head were performed without the use of intravenous contrast. Automated exposure control was utilized for this study. A dose lowering technique was utilized adhering to the principles of ALARA. Comparison: Head CT 09/16/2022. Findings: There is a small right mastoid effusion. The paranasal sinuses and left mastoid air cells are clear. The calvarium and skull base are intact. There is no mass, hematoma, midline shift, acute infarct. White matter hypodensity is nonspecific but suggestive of microvascular ischemic change. The ventricles and sulci demonstrate mild age-related involutional changes. Motion artifact. Prior bilateral lens replacement. Impression: Motion artifact. No definite acute intracranial abnormality. ACT 112: Negative or not required by law. Electronically signed by: Geovani Turner M.D. 02/21/2023 4:48 PM Discharge Plan Visit Data Chief Complaint: Altered Mental Status ED Provider: Braden Whatley Discharge Problem: Altered mental status, HERNANDEZ (acute kidney injury), Agitation, Acute dehydration, Elevated troponin, Elevated lactic acid level Patient Disposition: Admitted As Inpatient Condition: Fair Forms Stand Alone Forms: [employer] Prescriptions Prescriptions: No Action atorvastatin 80 mg tablet 80 mg PO QPM famotidine 20 mg tablet 20 mg PO BID nitroglycerin 0.4 mg tablet, sublingual 1 tab Sublingual UD PRN (Reason: Angina) docusate sodium 100 mg Capsule 100 mg PO BID PRN (Reason: Constipation) metoprolol succinate 25 mg tablet extended release 24 hr 25 mg PO BID oxybutynin chloride 5 mg tablet 5 mg PO BID cholecalciferol (vitamin D3) [Vitamin D3] 2,000 unit Capsule 2,000 unit PO HS Combivent Respimat 20-100 mcg/actuation Mist 1 puff INHALATION QID PRN (Reason: Cough/WHEEZING) albuterol sulfate 2.5 mg /3 mL (0.083 %) Solution For Nebulization 2.5 mg INHALATION QID MDD 30 DOSES/MONTH PRN (Reason: Shortness Of Breath) clopidogrel [Plavix] 75 mg Tablet 75 mg PO QAM isosorbide mononitrate 30 mg tablet extended release 24 hr 30 mg PO QAM aspirin 81 mg Tablet,Delayed Release (Dr/Ec) 81 mg PO QAM valacyclovir 500 mg tablet 500 mg PO BID PRN (Reason: RECURRENT EPISODE) tramadol 50 mg tablet 50 mg PO Q12 PRN (Reason: Pain) cyanocobalamin (vitamin B-12) 1,000 mcg/mL solution 1,000 mcg subcut MONTHLY Rx Instructions: first of every month triamcinolone acetonide 0.1 % Cream 1 applic TOPICAL BID PRN (Reason: flare up) calcium carbonate [Tums] 200 mg calcium (500 mg) Tablet,Chewable 400 mg PO BID PRN (Reason: Acid Reflux) gabapentin 300 mg capsule 300 mg PO HS budesonide 0.5 mg/2 mL Suspension For Nebulization 0.25 mg INHALATION BID Rx Instructions: rinse mouth arformoterol 15 mcg/2 mL Solution For Nebulization 2 ml INHALATION BID melatonin 5 mg Tablet 5 mg PO HS Eucerin Cream 1 applic TOPICAL DAILY PRN (Reason: Dry Skin) quetiapine 25 mg Tablet 12.5 mg PO BID 30 Days Qty: 0 0RF Rx Instructions: 25 mg hs but if hallucination or paranoia, increase to two tabs. multivitamin Tablet 1 tab PO HS levothyroxine [Synthroid] 75 mcg Tablet 75 mcg PO QAM magnesium oxide 400 mg (241.3 mg magnesium) tablet 400 mg PO HS allopurinol 300 mg tablet 300 mg PO PM pantoprazole 40 mg Tablet,Delayed Release (Dr/Ec) 40 mg PO BID Qty: 60 0RF Referrals Referrals: Jacob Jones MD [Primary Care Provider] -
[2023-02-21 16:38] LABS: Basophils # (auto) 0.02 K/uL (0-0.2); Basophils % (auto) 0.2 %; Eosinophils # (auto) 0.01 K/uL (0-0.50); Eosinophils % (auto) 0.1 %; Hematocrit (blood only) 34.4 % (42.0-52.0); Hemoglobin 11.5 g/dl (14.0-18.0); Immature Granulocytes # (auto) 0.14 K/uL (0.01-0.20); Immature Granulocytes % (auto) 1.3 %; Lymphocytes # (auto) 0.35 K/uL (1.2-3.4); Lymphocytes % (auto) 3.4 %; Mean Corpuscular Hemoglobin 34.7 pg (25.0-34.0); Mean Corpuscular Hgb Conc 33.4 g/dL (32.0-36.0); Mean Corpuscular Volume 103.9 fL (80.0-100.0); Mean Platelet Volume 11.3 fL (9.4-12.4); Monocytes # (auto) 1.31 K/uL (0.11-0.59); Monocytes % (auto) 12.6 %; Neutrophils # (auto) 8.55 K/uL (1.40-6.50); Neutrophils % (auto) 82.4 %; Platelet Count 283 K/uL (130-400); RDW Coefficient of Variation 14.2 % (11.5-14.5); RDW Standard Deviation 54.8 fL (36.4-46.3); Red Blood Count 3.31 M/uL (4.70-6.10); White Blood Count 10.38 K/ul (4.8-10.8)
--- NOTE | 2023-02-21 16:51 | CT Scan Report ---
HEAD CT NONCONTRAST CT DOSE: 2199.31 mGy.cm HISTORY: Altered mental status. TECHNIQUE: Multiaxial CT images of the head were performed without the use of intravenous contrast. A utomated exposure control was utilized for this study. A dose lowering technique was utilized adheri ng to the principles of ALARA. Comparison: Head CT 09/16/2022. Findings: There is a small right mastoid effusion. The paranasal sinuses and left mastoid air cells a re clear. The calvarium and skull base are intact. There is no mass, hematoma, midline shift, acute i nfarct. White matter hypodensity is nonspecific but suggestive of microvascular ischemic change. The ventricles and sulci demonstrate mild age-related involutional changes. Motion artifact. Prior bilate ral lens replacement. Impression: Motion artifact. No definite acute intracranial abnormality. ACT 112: Negative or not required by law. Electronically signed by: Geovani Turner M.D. 02/21/2023 4:48 PM
[2023-02-21 16:53] LABS: Base Excess VBG -3.1 mEq/L; HCO3 VBG 21 mmol/L; Oxygen Saturation VBG 62.2 %; PCO2 VBG 35 mmHg (38-50); PO2 VBG 40 mmHg; pH VBG 7.39 (7.36-7.41)
[2023-02-21 17:08] LABS: Albumin Level 3.6 gm/dl (3.4-5.0); Anion Gap 15 (3-11); Bilirubin,Total 1.3 mg/dl (0.2-1.0); Calcium 9.3 mg/dl (8.6-10.3); Carbon Dioxide 18 mmol/L (21-32); Chloride 110 mmol/L (98-107); Magnesium 1.6 mg/dl (1.7-2.4); Sodium 143 mmol/L (136-145)
[2023-02-21 17:13] LABS: Troponin I High Sensitivity 381.9 pg/ml (0-20)
[2023-02-21] MEDS ORDERED: MAGNESIUM SULFATE / D5W 1 GM/100 ML BAG IV STA (17:16)
[2023-02-21 17:17] LABS: Alanine Aminotransferase 26 U/L (7-52); Alkaline Phosphatase 77 U/L (34-104); Aspartate Aminotransferase 24 U/L (13-39); BUN Creatinine Ratio 15.3 (10-20); Blood Urea Nitrogen 34 mg/dl (6-23); Est GFR (African American) 31.7 ml/min; Est GFR (Non-African American) 27.4 ml/min; Globulin 3.5 gm/dl (2.5-4.0); Glucose 146 mg/dl (70-99(Fasting)); Total Protein 7.1 gm/dl (6.0-8.3)
[2023-02-21 17:18] LABS: Thyroid Stimulating Hormone 5.629 uIu/ml (0.300-4.500)
[2023-02-21] MEDS ORDERED: SODIUM CHLORIDE 0.9% 1000ML 500 ML IV ONE (17:20)
--- NOTE | 2023-02-21 17:24 | XRay Report ---
XR chest 1V portable CLINICAL HISTORY: weakness TECHNIQUE: Single frontal radiograph of the chest was obtained. Comparison: Comparison is made to chest radiograph 02/14/2023 FINDINGS: No lines and tubes are seen. The aorta is tortuous. The remainder of the cardiomediastinal silhouette is unremarkable. The lungs are clear. No evidence of pleural effusion or pneumothorax. IMPRESSION: No acute chest disease. ACT 112: Negative or not required by law. Electronically signed by: Vega Olson M.D. 02/21/2023 5:23 PM
[2023-02-21 17:53] LABS: T4 Free Thyroxine 0.96 ng/dl (0.61-1.60)
--- NOTE | 2023-02-21 18:43 | History & Physical Report ---
Date of Service February 21, 2023 Assessment & Plan (1) Altered mental status: (2) HERNANDEZ (acute kidney injury): (3) Agitation: (4) Elevated troponin: (5) Elevated lactic acid level: (6) UTI (urinary tract infection): (7) PAF (paroxysmal atrial fibrillation): (8) Barretts esophagus: (9) Dementia: (10) Hypertension: (11) Hypothyroid: (12) Nocturnal hypoxemia: Plan This is a 78yo M with a PMH of CAD s/p PCI, stent, HTN, COPD, bronchiectasis, CKD III-IV, GERD, Sepulveda's esophagus, neuropathy, dementia, SVT versus paroxysmal atrial fibrillation, RBBB, and other medical problems who returns to ED due to medication non-compliance and family's inability to continue caring for patient at home. Altered mental status More lethargic and intermittently agitated since discharge home, refusing medications, food and water Family not able to care for him at home in this state Required Zyprexa 5mg IM in ED given agitation and aggression towards staff Seroquel dose recently decreased to 12.5mg BID Acute kidney injury superimposed on CKD Poor PO intake since discharge home, Cr 2.2 (baseline mid-1s) Continue gentle hydration, monitor BMP Avoid nephrotoxic agents as able UTI Low grade fever in setting of pansensitive E coli UTI found on previous admission. Will need 2 more days of treatment due to refusal to take home abx Lactic acidosis Likely 2/2 dehydration, known UTI - continue trending Dementia, agitation Seroquel dose changed with psych input on previous admission to Seroquel 12.5 BID Zyprexa as needed One-to-one observer as needed Barretts esophagus Continue PPI, H2 sabi Elevated troponin CAD (coronary artery disease) S/p PCI, stent HS troponin significantly elevated on admission at 380 -> 334 In setting of HERNANDEZ, dehydration Not complaining of CP at home but difficult to tell in somnolent state Has refused to take any medication in 2 days ECG showing NSR, RBBB known, T wave changes in lateral leads, no acute ST elevation Continue to monitor - not starting heparin drip for now, continue gentle hydration, trend troponin Continue aspirin, Plavix, isosorbide, metoprolol succinate, atorvastatin PAF (paroxysmal atrial fibrillation) History paroxysmal atrial fibrillation versus SVT seen on prior quality assurance monitor Continue metoprolol succinate (refused doses for past 2 days) Hypertension Continue metoprolol succinate COPD (chronic obstructive pulmonary disease) History COPD/bronchiectasis Continue home inhalers Albuterol as needed Continue home 2 L oxygen at bedtime Chronic anemia Hemoglobin same as baseline Monitor H&H Hypothyroidism Continue levothyroxine Gout Continue allopurinol DVT Prophylaxis: SQ heparin Code status: FULL PCP: Karen Dispo: Admitted to PCU Patient seen in collaboration with Dr. Peralta. Please see addendum. I spent a total of 80 minutes coordinating, documenting, and providing care for this patient excluding time spent in the performance of separately billed services. History of Present Illness Primary Care Provider: Jacob Jones MD This is a 78yo M with a PMH of CAD s/p PCI, stent, HTN, COPD, bronchiectasis, CKD III-IV, GERD, Sepulveda's esophagus, neuropathy, dementia, SVT versus paroxysmal atrial fibrillation, RBBB, and other medical problems who returns to ED due to medication non-compliance and family's inability to continue caring for patient at home. Patient was discharged home yesterday and other recommended for placement, patient elected to bring patient home to care for him there. Was discharged home on cefdinir 300 mg p.o. twice daily for 2 additional days to complete UTI treatment course. During previous admission, had some somnolence that was thought to be secondary to Seroquel dose, which was decreased to 12.5 p.o. twice daily. History obtained from and son at bedside. Since discharge home, patient has remained lethargic and has been refusing to eat, drink or take medications. They have had significant difficulty moving him and he grimaces in pain although unable to elicit much meaningful history from him due to dementia. States he has had chronic abdominal pain prior to admission. They do not feel they can care for him anymore. He has been screaming, swinging and spitting on staff in the ED. Was given IM Zyprexa 5 mg x 1 and is now resting peacefully. ROS unobtainable due to reduced consciousness. Allergies Allergy/AdvReac Type Severity Reaction Status Date / Time benzocaine Allergy Severe SLOUGHING Verified 01/12/23 21:39 OF SKIN clindamycin Allergy Intermediate RASH Verified 01/12/23 21:39 clobetasol Allergy Intermediate ITCHING Verified 01/12/23 21:39 cyanocobalamin (vitamin B12) Allergy Intermediate Rash Verified 01/12/23 21:39 doxycycline Allergy Intermediate RASH Verified 01/12/23 21:39 Penicillins Allergy Intermediate HIVES Verified 01/12/23 21:39 phenethylamine Allergy Intermediate Itching Verified 01/12/23 21:39 povidone-iodine Allergy Intermediate Hives Verified 01/12/23 21:39 [From Betadine] soap [From Betadine] Allergy Intermediate Hives Verified 01/12/23 21:39 tea tree Allergy Intermediate ITCHING Verified 01/12/23 21:39 lorazepam [From Ativan] AdvReac Mild Confusion Verified 02/10/23 17:19 Home Medications Medication Instructions Recorded Confirmed Type atorvastatin 80 mg tablet 80 mg PO QPM 06/14/18 02/21/23 History cholecalciferol (vitamin D3) 50 2,000 unit PO HS 06/14/18 02/21/23 History mcg (2,000 unit) capsule (Vitamin D3) docusate sodium 100 mg capsule 100 mg PO BID PRN Constipation 06/14/18 02/21/23 History famotidine 20 mg tablet 20 mg PO BID 06/14/18 02/21/23 History ipratropium 20 mcg-albuterol 100 1 puff inhalation QID PRN 06/14/18 02/21/23 History mcg/actuation mist for inhalation Cough/WHEEZING (Combivent Respimat) metoprolol succinate 25 mg 25 mg PO BID 06/14/18 02/21/23 History tablet,extended release 24 hr nitroglycerin 0.4 mg sublingual 1 tab sublingual UD PRN Angina 06/14/18 02/21/23 History tablet oxybutynin chloride 5 mg tablet 5 mg PO BID 06/14/18 02/21/23 History albuterol sulfate 2.5 mg/3 mL 2.5 mg inhalation QID PRN 01/07/19 02/21/23 History (0.083 %) solution for nebulization Shortness Of Breath clopidogrel 75 mg tablet (Plavix) 75 mg PO QAM 11/03/19 02/21/23 History isosorbide mononitrate 30 mg 30 mg PO QAM 01/28/20 02/21/23 History tablet,extended release 24 hr aspirin 81 mg tablet,delayed 81 mg PO QAM 09/18/20 02/21/23 History release cyanocobalamin (vitamin B-12) 1,000 mcg subcut MONTHLY 09/18/20 02/21/23 History 1,000 mcg/mL injection solution tramadol 50 mg tablet 50 mg PO Q12 PRN Pain 09/18/20 02/21/23 History valacyclovir 500 mg tablet 500 mg PO BID PRN RECURRENT EPISODE 09/18/20 02/21/23 History levothyroxine 75 mcg tablet 75 mcg PO QAM 09/09/21 02/21/23 History (Synthroid) magnesium oxide 400 mg (241.3 mg 400 mg PO HS 09/09/21 02/21/23 History magnesium) tablet multivitamin 1 tab PO HS 09/09/21 02/21/23 History allopurinol 300 mg tablet 300 mg PO PM 12/04/22 02/21/23 History pantoprazole 40 mg tablet,delayed 40 mg PO BID #60 tabs 01/14/23 02/21/23 Rx release arformoterol 15 mcg/2 mL solution 2 ml inhalation BID 02/10/23 02/21/23 History for nebulization budesonide 0.5 mg/2 mL suspension 0.25 mg inhalation BID 02/10/23 02/21/23 History for nebulization calcium carbonate 200 mg calcium 400 mg PO BID PRN Acid Reflux 02/10/23 02/21/23 History (500 mg) chewable tablet (Tums) gabapentin 300 mg capsule 300 mg PO HS 02/10/23 02/21/23 History lanolin alcohols-mineral 1 applic topical DAILY PRN Dry Skin 02/10/23 02/21/23 History oil-w.petrolatum-ceresin topical cream (Eucerin topical cream) melatonin 5 mg tablet 5 mg PO HS 02/10/23 02/21/23 History triamcinolone acetonide 0.1 % 1 applic topical BID PRN flare up 02/10/23 02/21/23 History topical cream quetiapine 25 mg tablet 12.5 mg PO BID 30 days #0 tabs 02/19/23 02/21/23 Rx Past Med/Surg History Medical History Anxiety Aortic aneurysm stable 3cm; pcp monitors Barretts esophagus Blood clotting disorder pt unable to verify Chronic anemia Chronic back pain Chronic kidney disease, stage 3 COPD (chronic obstructive pulmonary disease) inhalers and nebulizers daily Coronary artery disease Diverticular disease GERD (gastroesophageal reflux disease) Gout Gracie filter in place Hearing deficit Hyperlipidemia Hypertension Idiopathic neuropathy Myocardial Infarction 2016--follows with Dr. Casanova Neuropathy Nocturnal hypoxemia On home oxygen therapy 2.5L N/C at HS Osteoarthritis Poor historian Prostate cancer sx Recurrent genital herpes simplex (Unknown) Sciatica Sleep apnea oxygen at night Temporomandibular joint disorder Surgical History History of arthroscopic knee surgery History of bilateral cataract extraction History of cardiac cath x5--last 2018 History of colonoscopy History of esophagogastroduodenoscopy (EGD) History of heart artery stent multiple--last 11/03 to restenosis History of hernia repair epigastric History of left shoulder replacement History of lumbar surgery History of mandibular surgery tmj repair History of prostate biopsy malignant History of prostatectomy History of right inguinal hernia repair History of right shoulder replacement History of tooth extraction all teeth removed Status post correction of deviated nasal septum Status post total hip replacement, bilateral Family History Other Family history not known due to adoption Social History Smoking Status: Unknown if ever smoked Tobacco Type: Cigarettes Do You Dip or Chew Tobacco: No; Preferred Language: Chilean Communication Ability: Impaired Straight Cutter Required: No Beliefs That Will Affect Care: None marital status: Current Living Situation: Spouse Current Living Situation Comment: lives with and son current occupational status: retired How many Children do You have: 4 Feels Safe at Home: Yes Assistive Devices: Cane and Wheelchair Review of Systems Review of Systems: Unobtainable due to reduced consciousness Physical Exam Physical Exam: General Appearance: WD/WN, vitals as above, appears ill, pale, somnolent but withdraws to painful stimuli Head: normocephalic, atraumatic Eyes: normal inspection, PERRL, conjunctivae normal, anicteric sclerae ENT: external ear and nose normal, oropharynx dry mucous membranes Neck: normal visual inspection, trachea midline, no thyromegaly Respiratory: normal respiratory effort, lungs clear to auscultation, no wheeze, rales, rhonchi. No accessory muscle use Cardiovascular: regular rate, rhythm, no murmur, normal peripheral pulses, no BLE edema. Vessels: no JVD Chest: normal inspection of chest Abdomen/GI: normal bowel sounds, soft, diffuse TTP, known ventral hernia, no hepatosplenomegaly Extremities/Musculoskeletal: no cyanosis or clubbing, extremities motor strength 5/5 Neurologic: PERRL, no face palsy, no dysarthria, CN's II-XI intact bilaterally and moves all extremities spontaneously Psychiatric: Somnolent on exam, yells out intermittently during exam Skin: no rashes, pale, warm/dry Results & Data Results & Data Vital Signs (Past 12 Hours) Vital Signs Temp Pulse Pulse Resp BP Pulse Ox O2 Del Method 02/21/23 17:25 99 H 30 H 135/85 94 Room Air 02/21/23 15:52 95 H 02/21/23 15:53 94 Room Air 02/21/23 15:48 89 16 94 Room Air 02/21/23 15:48 93 Room Air 02/21/23 15:38 37.7 C H 96 H 16 92 Room Air Laboratory Results Short CBC 02/21/23 Range/Units 16:17 WBC 10.38 (4.8-10.8) K/ul Hgb 11.5 L (14.0-18.0) g/dl Hct 34.4 L (42.0-52.0) % Plt Count 283 (130-400) K/uL BMP 02/21/23 16:17 Sodium 143 Potassium 4.0 Chloride 110 H Carbon Dioxide 18 L BUN 34 H Creatinine 2.22 H Glucose 146 H Calcium 9.3 Liver Function 02/21/23 Range/Units 16:17 Total Bilirubin 1.3 H (0.2-1.0) mg/dl AST 24 (13-39) U/L ALT 26 (7-52) U/L Alkaline Phosphatase 77 (34-104) U/L Albumin 3.6 (3.4-5.0) gm/dl Diagnostic Findings Chest X-Ray 02/21/23 15:39 XR chest 1V portable CLINICAL HISTORY: weakness TECHNIQUE: Single frontal radiograph of the chest was obtained. Comparison: Comparison is made to chest radiograph 02/14/2023 FINDINGS: No lines and tubes are seen. The aorta is tortuous. The remainder of the cardiomediastinal silhouette is unremarkable. The lungs are clear. No evidence of pleural effusion or pneumothorax. IMPRESSION: No acute chest disease. ACT 112: Negative or not required by law. Electronically signed by: Vega Olson M.D. 02/21/2023 5:[address] 02/21/23 15:[address] DOSE: 2199.31 mGy.cm HISTORY: Altered mental status. TECHNIQUE: Multiaxial CT images of the head were performed without the use of intravenous contrast. Automated exposure control was utilized for this study. A dose lowering technique was utilized adhering to the principles of ALARA. Comparison: Head CT 09/16/2022. Findings: There is a small right mastoid effusion. The paranasal sinuses and left mastoid air cells are clear. The calvarium and skull base are intact. There is no mass, hematoma, midline shift, acute infarct. White matter hypodensity is nonspecific but suggestive of microvascular ischemic change. The ventricles and sulci demonstrate mild age-related involutional changes. Motion artifact. Prior bilateral lens replacement. Impression: Motion artifact. No definite acute intracranial abnormality. ACT 112: Negative or not required by law. Electronically signed by: Geovani Turner M.D. 02/21/2023 4:48 PM ECG Additional Comments: EKG reviewed: NSR, RBBB, inferolateral T wave abnormality. No ST elevation Supervising Physician Co-Signing Physician Notes Patient was seen and examined independently. Chart reviewed. Case discussed with HAKEEM Patient with guarded prognosis with his failure to thrive, delirium superimposed on dementia and labwork abnormalities. I discussed with family, they want to continue Full code. If he was to continue to deteriorate, would recommend readdressing GOC and code status. He received zyprexa in ER and is very consuelo nolent currently. Will hold further sedating medications. (1) Altered mental status Altered mental status type: disorientation Qualified Code(s): R41.0 - Disorientation, unspecified (9) Dementia Dementia type: unspecified type (10) Hypertension Hypertension type: unspecified Qualified Code(s): I10 - Essential (primary) hypertension
[2023-02-21] MEDS: SODIUM CHLORIDE 0.9% 1000ML 1,000 ML IV SCH (19:50)
[2023-02-21] MEDS ORDERED: POLYETHYLENE (MIRALAX) 17 GM PACK PO PRN (21:51)
[2023-02-21] MEDS ORDERED: ACETAMINOPHEN 325 MG TAB PO PRN (21:51)
[2023-02-21] MEDS ORDERED: ONDANSETRON INJ 2 MG/ML 2 ML VIAL IV PRN (21:51)
[2023-02-21] MEDS ORDERED: IPRATROPIUM BROMIDE/ALBUTEROL respimat INH INH PRN (22:00)
[2023-02-21] MEDS ORDERED: DOCUSATE SODIUM 100 MG CAP PO PRN (22:00)
[2023-02-21] MEDS ORDERED: CALCIUM CARBONATE 500 MG CHEWABLE TAB PO PRN (22:00)
[2023-02-21] MEDS ORDERED: ALBUTEROL 0.083% NEBU SOLN 3 ML VIAL INH PRN (22:00)
[2023-02-21] MEDS ORDERED: valACYclovir HCL 500 MG TABLET PO PRN (22:00)
[2023-02-21] MEDS ORDERED: TRIAMCINOLONE ACET 0.1% CR 15 GM TUBE TOP PRN (22:00)
[2023-02-21] MEDS ORDERED: cefTRIAXone SODIUM 2,000 MG in DEXTROSE 5% 50 ML IV SCH (22:00)
[2023-02-21 22:44] LABS: Appearance Urine Cloudy (Clear); Bilirubin Urine Negative (Negative); Blood Urine Negative (Negative); Color Urine Dark Yellow; Epithelial Cell Urine Auto >30 /lpf (0-5); Glucose Urine UA Negative (Negative); Ketones Urine 1+ (Negative); Leukocyte Esterase Urine Trace (Negative); Nitrite Urine Negative (Negative); Protein Urine 1+ (Negative); Specific Gravity Urine 1.034 (1.000-1.030); Urobilinogen Urine Negative (Negative)
[2023-02-21 22:53] LABS: Bacteria Urine Automated 1+ (Negative); RBC Urine Automated 0-4 /hpf (0-4)
[2023-02-21] MEDS ORDERED: EUCERIN CR 120 GM JAR TOP PRN (23:21)
[2023-02-21] MEDS ORDERED: Ipratropium HFA Inhaler (Combivent Respimat P&T Subs) INH PRN (23:22)
[2023-02-21] MEDS ORDERED: Albuterol HFA 8 GM Inhaler (Combivent Respimat P&T Subs) INH PRN (23:22)
[2023-02-22] MEDS: ATORVASTATIN 40 MG TAB PO SCH ×2 (00:34→20:45)
[2023-02-22] MEDS: METOPROLOL SUCC 25MG EXT REL TAB PO SCH ×3 (00:34→20:45)
[2023-02-22 01:27] LABS: Anion Gap 11 (3-11); BUN Creatinine Ratio 18.2 (10-20); Blood Urea Nitrogen 37 mg/dl (6-23); Calcium 9.3 mg/dl (8.6-10.3); Carbon Dioxide 20 mmol/L (21-32); Chloride 113 mmol/L (98-107); Est GFR (African American) 35.3 ml/min; Est GFR (Non-African American) 30.5 ml/min; Glucose 115 mg/dl (70-99(Fasting)); Sodium 144 mmol/L (136-145)
[2023-02-22 01:30] LABS: Hemoglobin 10.8 g/dl (14.0-18.0); Mean Corpuscular Hemoglobin 34.2 pg (25.0-34.0); Mean Corpuscular Hgb Conc 32.7 g/dL (32.0-36.0); Mean Corpuscular Volume 104.4 fL (80.0-100.0); Platelet Count 287 K/uL (130-400); RDW Coefficient of Variation 14.4 % (11.5-14.5); RDW Standard Deviation 55.2 fL (36.4-46.3); Red Blood Count 3.16 M/uL (4.70-6.10); White Blood Count 9.08 K/ul (4.8-10.8)
[2023-02-22] MEDS: SODIUM CHLORIDE 0.9% 1000ML 1,000 ML IV SCH ×2 (05:59→17:57)
[2023-02-22] MEDS: FORMOTEROL 20 MCG/2 ML VIAL INH SCH ×2 (07:26→19:19)
[2023-02-22] MEDS: BUDESONIDE 0.25 MG/2 ML VIAL (PULMICORT) INH SCH ×2 (07:26→19:19)
[2023-02-22] MEDS: cefTRIAXone SODIUM 2000MG/70ML D5W IV ONE ×2 (08:17→08:18)
[2023-02-22] MEDS: cefTRIAXone SODIUM 2,000 MG in DEXTROSE 5% 50 ML IV SCH (08:18)
[2023-02-22] MEDS: LEVOTHYROXINE SODIUM 75 MCG TABLET PO SCH (08:34)
[2023-02-22] MEDS: CLOPIDOGREL BISULFATE 75 MG TAB PO SCH (08:34)
[2023-02-22] MEDS: ASPIRIN 81 MG ECTAB PO SCH (08:34)
[2023-02-22] MEDS: ISOSORBIDE MONO EXTENDED REL 30 MG TABCR PO SCH (08:35)
[2023-02-22] MEDS: oxyBUTYnin chloride 5 MG TAB PO SCH ×2 (08:35→20:46)
[2023-02-22] MEDS: PANTOprazole 40 MG TAB PO SCH ×2 (08:35→20:46)
[2023-02-22] MEDS: FAMOTIDINE 20 MG TAB PO SCH ×2 (08:35→20:46)
[2023-02-22] MEDS ORDERED: cefTRIAXone SODIUM 1,000 MG in DEXTROSE 5% AD-VAN 50 ML IV SCH (09:00)
--- NOTE | 2023-02-22 10:50 | Electrocardiogram Report ---
Test Reason : Blood Pressure : / mmHG Vent. Rate : 095 BPM Atrial Rate : 094 BPM P-R Int : 000 ms QRS Dur : 130 ms QT Int : 398 ms P-R-T Axes : 000 -29 -71 degrees QTc Int : 500 ms Poor data quality, interpretation may be adversely affected Normal sinus rhythm Right bundle branch block T wave abnormality, consider lateral ischemia Abnormal ECG When compared with ECG of 11-FEB-2023 06:06, QRS axis Shifted left Nonspecific T wave abnormality now evident in Inferior leads T wave inversion now evident in Anterolateral leads Confirmed by Boaz Dunn ([id number]) on 02/22/2023 10:50:08 AM Referred By: Confirmed By:Boaz Dunn
--- NOTE | 2023-02-22 10:50 | Electrocardiogram Report ---
Test Reason : Blood Pressure : / mmHG Vent. Rate : 088 BPM Atrial Rate : 088 BPM P-R Int : 180 ms QRS Dur : 132 ms QT Int : 408 ms P-R-T Axes : -21 -21 260 degrees QTc Int : 493 ms Normal sinus rhythm Right bundle branch block T wave abnormality, consider inferolateral ischemia Abnormal ECG When compared with ECG of 21-FEB-2023 15:55, (unconfirmed) No significant change Confirmed by Boaz Dunn ([id number]) on 02/22/2023 10:50:37 AM Referred By: REFERRED SELF Confirmed By:Boaz Dunn
--- NOTE | 2023-02-22 11:25 | Electrocardiogram Report ---
Test Reason : Blood Pressure : / mmHG Vent. Rate : 078 BPM Atrial Rate : 078 BPM P-R Int : 176 ms QRS Dur : 128 ms QT Int : 440 ms P-R-T Axes : 072 -23 -53 degrees QTc Int : 501 ms Sinus rhythm with Premature atrial complexes Right bundle branch block Septal infarct , age undetermined Abnormal ECG When compared with ECG of 21-FEB-2023 19:23, (unconfirmed) Premature atrial complexes are now Present Nonspecific T wave abnormality has replaced inverted T waves in Lateral leads Confirmed by Boaz Dunn ([id number]) on 02/22/2023 11:25:17 AM Referred By: REFERRED SELF Confirmed By:Boaz Dunn
--- NOTE | 2023-02-22 17:38 | Hospitalist Progress Note ---
Date of Service February 22, 2023 Assessment & Plan (1) Altered mental status: (2) HERNANDEZ (acute kidney injury): (3) Agitation: (4) Elevated troponin: (5) Elevated lactic acid level: (6) UTI (urinary tract infection): (7) PAF (paroxysmal atrial fibrillation): (8) Barretts esophagus: (9) Dementia: (10) Hypertension: (11) Hypothyroid: (12) Nocturnal hypoxemia: Plan This is a 78yo M with a PMH of CAD s/p PCI, stent, HTN, COPD, bronchiectasis, CKD III-IV, GERD, Sepulveda's esophagus, neuropathy, dementia, SVT versus paroxysmal atrial fibrillation, RBBB, and other medical problems who returns to ED due to medication non-compliance and family's inability to continue caring for patient at home. Acute metabolic encephalopathy In setting of refusing his medications and oral intake then presented with agitation and dehydration/HERNANDEZ Improving after IV fluids Acute kidney injury superimposed on CKD Poor PO intake since discharge home, Cr 2.2 on admission (baseline mid-1s) Cr improved to 2. Continue gentle hydration, monitor BMP Avoid nephrotoxic agents as able UTI Low grade fever in setting of pansensitive E coli UTI found on previous admission. Will need 2 more days of treatment due to refusal to take home abx. Ceftriaxone to complete treatment course Lactic acidosis Due to dehydration Dementia, agitation Seroquel dose changed with psych input on previous admission to Seroquel 12.5 BID Zyprexa as needed Resume oral medications Barretts esophagus Continue PPI, H2 sabi Elevated troponin CAD (coronary artery disease) S/p PCI, stent HS troponin significantly elevated on admission at 380 -> 334 In setting of HERNANDEZ, dehydration Not complaining of CP at home but difficult to tell in somnolent state Has refused to take any medication in 2 days ECG showing NSR, RBBB known, T wave changes in lateral leads, no acute ST elevation Continue aspirin, Plavix, isosorbide, metoprolol succinate, atorvastatin PAF (paroxysmal atrial fibrillation) History paroxysmal atrial fibrillation versus SVT seen on prior branch operations specialist Continue metoprolol succinate (refused doses for past 2 days) Hypertension Continue metoprolol succinate COPD (chronic obstructive pulmonary disease) History COPD/bronchiectasis Continue home inhalers Albuterol as needed Continue home 2 L oxygen at bedtime Chronic anemia Hemoglobin same as baseline Monitor H&H Hypothyroidism Continue levothyroxine Gout Continue allopurinol DVT Prophylaxis: SQ heparin Code status: FULL PCP: Karen Dispo: Admitted to PCU Admission and Anticipated Discharge Date Admission Date: February 21, 2023 Subjective Awake today, less agitated Family feels he is 70% back to baseline mental status Review of Systems Review of Systems: as above Physical Exam Physical Exam: Appears older than stated age, non toxic, not agitated ENMT: temporal muscle wasting, Mucous membrane dry Respiratory: No accessory muscle use, no wheezing/rhonchi Cardiovascular: regular rate and rhythm, no murmurs/rubs Gastrointestinal (Abdomen): soft, non tender Musculoskeletal: no edema Neurologic: awake, spontaneously moving extremities, does not answer questions appropriately Psychiatric: Calm Results & Data Results & Data Vital Signs (Past 12 Hours) Vital Signs Temp Pulse Pulse Pulse Resp BP BP 02/22/23 15:52 36.9 C 83 20 130/91 02/22/23 12:32 80 20 153/98 H 02/22/23 11:13 80 20 157/77 H 02/22/23 09:31 79 20 140/82 02/22/23 08:25 02/22/23 08:13 02/22/23 08:13 79 20 147/98 H 02/22/23 07:28 71 16 02/22/23 07:24 72 02/22/23 06:00 85 18 146/101 H Pulse Ox Pulse Ox O2 Del Method O2 Del Method FiO2 02/22/23 15:52 93 Room Air 02/22/23 12:32 95 Room Air 02/22/23 11:13 93 Room Air 02/22/23 09:31 95 Room Air 02/22/23 08:25 Room Air 02/22/23 08:13 94 Room Air 02/22/23 08:13 94 Room Air 02/22/23 07:28 91 Room Air 21 02/22/23 07:24 02/22/23 06:00 94 (1) Altered mental status Altered mental status type: disorientation Qualified Code(s): R41.0 - Disorientation, unspecified (9) Dementia Dementia type: unspecified type (10) Hypertension Hypertension type: unspecified Qualified Code(s): I10 - Essential (primary) hypertension
[2023-02-22] MEDS ORDERED: METOPROLOL TARTRATE 1 MG/ML VIAL IV PRN (18:38)
[2023-02-22] MEDS: QUEtiapine FUMARATE 25 MG TABLET PO SCH (20:44)
[2023-02-22] MEDS: allopurinoL 300 MG TAB PO SCH (20:46)
[2023-02-22] MEDS ORDERED: CHOLECALCIFEROL 1,000 UNITS 25 MCG TAB PO SCH (21:00)
[2023-02-22] MEDS ORDERED: MAGNESIUM OXIDE 400 MG TAB PO SCH (21:00)
[2023-02-22] MEDS ORDERED: MULTIVITAMIN TAB PO SCH (21:00)
[2023-02-22] MEDS ORDERED: GABAPENTIN 300 MG CAP PO SCH (21:00)
[2023-02-23] MEDS ORDERED: METOPROLOL TARTRATE 1 MG/ML VIAL IV SCH
[2023-02-23] MEDS: SODIUM CHLORIDE 0.9% 1000ML 1,000 ML IV SCH (03:52)
[2023-02-23] MEDS: LEVOTHYROXINE SODIUM 75 MCG TABLET PO SCH (05:52)
[2023-02-23 06:26] LABS: Hematocrit (blood only) 30.9 % (42.0-52.0); Mean Corpuscular Hemoglobin 34.1 pg (25.0-34.0); Mean Corpuscular Hgb Conc 32.4 g/dL (32.0-36.0); Mean Corpuscular Volume 105.5 fL (80.0-100.0); Mean Platelet Volume 10.9 fL (9.4-12.4); Platelet Count 281 K/uL (130-400); RDW Coefficient of Variation 14.5 % (11.5-14.5); RDW Standard Deviation 55.6 fL (36.4-46.3); Red Blood Count 2.93 M/uL (4.70-6.10)
[2023-02-23 06:45] LABS: Anion Gap 11 (3-11); BUN Creatinine Ratio 23.3 (10-20); Blood Urea Nitrogen 38 mg/dl (6-23); Calcium 9.1 mg/dl (8.6-10.3); Carbon Dioxide 21 mmol/L (21-32); Chloride 116 mmol/L (98-107); Est GFR (African American) 46.1 ml/min; Est GFR (Non-African American) 39.8 ml/min; Glucose 95 mg/dl (70-99(Fasting)); Potassium 3.7 mmol/L (3.5-5.1); Sodium 148 mmol/L (136-145)
[2023-02-23 07:03] LABS: Vitamin B12 1227 pg/ml (180-914)
[2023-02-23 07:06] LABS: Vitamin D, 25 Hydrox 66.5 ng/ml (30-100)
[2023-02-23] MEDS: BUDESONIDE 0.25 MG/2 ML VIAL (PULMICORT) INH SCH ×2 (07:20→19:23)
[2023-02-23] MEDS: FORMOTEROL 20 MCG/2 ML VIAL INH SCH (07:20)
[2023-02-23] MEDS ORDERED: D5W AND 1/2NSS 1,000 ML IV SCH (08:15)
[2023-02-23] MEDS: ASPIRIN 81 MG ECTAB PO SCH (08:21)
[2023-02-23] MEDS: cefTRIAXone SODIUM 2,000 MG in DEXTROSE 5% 50 ML IV SCH (08:21)
[2023-02-23] MEDS: oxyBUTYnin chloride 5 MG TAB PO SCH ×2 (08:22→20:52)
[2023-02-23] MEDS: CLOPIDOGREL BISULFATE 75 MG TAB PO SCH (08:22)
[2023-02-23] MEDS: PANTOprazole 40 MG TAB PO SCH (08:22)
[2023-02-23] MEDS: ISOSORBIDE MONO EXTENDED REL 30 MG TABCR PO SCH (08:22)
[2023-02-23] MEDS: QUEtiapine FUMARATE 25 MG TABLET PO SCH ×2 (08:22→20:41)
[2023-02-23] MEDS: FAMOTIDINE 20 MG TAB PO SCH ×2 (08:22→20:52)
[2023-02-23] MEDS: METOPROLOL SUCC 25MG EXT REL TAB PO SCH ×2 (08:22→20:52)
--- NOTE | 2023-02-23 13:25 | Hospitalist Progress Note ---
Date of Service February 23, 2023 Assessment & Plan (1) Altered mental status: (2) HERNANDEZ (acute kidney injury): (3) Agitation: (4) Elevated troponin: (5) Elevated lactic acid level: (6) UTI (urinary tract infection): (7) PAF (paroxysmal atrial fibrillation): (8) Barretts esophagus: (9) Dementia: (10) Hypertension: (11) Hypothyroid: (12) Nocturnal hypoxemia: Plan This is a 78yo M with a PMH of CAD s/p PCI, stent, HTN, COPD, bronchiectasis, CKD III-IV, GERD, Sepulveda's esophagus, neuropathy, dementia, SVT versus paroxysmal atrial fibrillation, RBBB, and other medical problems who returns to ED due to medication non-compliance and family's inability to continue caring for patient at home. Acute metabolic encephalopathy In setting of refusing his medications and oral intake then presented with agitation and dehydration/HERNANDEZ Mental status waxes and wanes, consistent with delirium superimposed on dementia Acute kidney injury superimposed on CKD In setting of Failure to Thrive due to advancing dementia Poor PO intake since discharge home, Cr 2.2 on admission (baseline mid-1s) Cr improved with IV fluids. Patient with very poor oral intake. Waxing and waning cooperation. UTI Low grade fever in setting of pansensitive E coli UTI found on previous admission. Will need 2 more days of treatment due to refusal to take home abx. Ceftriaxone to complete treatment course while here No evidence of recurrent infection. No further fevers, no leukocytosis. Repeat Urine culture negative Lactic acidosis Due to dehydration Dementia, agitation Seroquel dose changed with psych input on previous admission to Seroquel 12.5 BID Zyprexa as needed Barretts esophagus Continue PPI, H2 sabi Elevated troponin CAD (coronary artery disease) S/p PCI, stent HS troponin significantly elevated on admission at 380 -> 334 In setting of HERNANDEZ, dehydration Not complaining of CP at home but difficult to tell in somnolent state Has refused to take any medication in 2 days ECG showing NSR, RBBB known, T wave changes in lateral leads, no acute ST elevation Continue aspirin, Plavix, isosorbide, metoprolol succinate, atorvastatin when able PAF (paroxysmal atrial fibrillation) History paroxysmal atrial fibrillation versus SVT seen on prior cafeteria monitor Continue metoprolol succinate (refused doses for past 2 days) Hypertension Continue metoprolol succinate COPD (chronic obstructive pulmonary disease) History COPD/bronchiectasis Continue home inhalers Albuterol as needed Continue home 2 L oxygen at bedtime Chronic anemia Hemoglobin same as baseline Monitor H&H Hypothyroidism Continue levothyroxine Gout Continue allopurinol Goals of Care Discussion -I had another goals of care discussion with patient's . She is understandably having difficulty with her 's rapid decline. We discussed code status again and she is agreeable to DNI/DNR. I will consult Palliative Care medicine to help with GOC discussion. Mr Lorenzo has poor prognosis. Admission and Anticipated Discharge Date Admission Date: February 21, 2023 Subjective Yesterday evening patient took his medications This morning patient again refused his medications, did not eat breakfast In the afternoon, Mrs Lorenzo was present at bedside and we discussed code status again. She is agreeable to DNR/DNI. We discussed Mr Lorenzo's waxing and waning cooperation, refusal to eat, refusal to take his medications, etc which are all related to his advancing dementia with possibly a component of delirium. Although it is noted that when he was home for 2 days from his last hospitalization, he also refused to eat/drink/take medications. I expressed my concern that he would continue to decline due to his disease process and recommended a Palliative Care consult to help support her in her decision making. She is tearful but is agreeable to Palliative consult. Review of Systems Review of Systems: as above Physical Exam Physical Exam: Appears older than stated age, dishevelled ENMT: temporal muscle wasting, mucous membrane dry Respiratory: breathing comfortably on room air, no wheezing/rhonchi Cardiovascular: regular rate and rhythm, no murmurs/rubs Gastrointestinal (Abdomen): soft, non tender Musculoskeletal: no edema Neurologic: earlier in day he was awake, answers were nonsensical , spontaneously moving extremities Later in the day he was more drowsy, slumped over in bed ( reports he was very agitated earlier and thrashing around) Results & Data Results & Data Vital Signs (Past 12 Hours) Vital Signs Temp Pulse Pulse Resp BP Pulse Ox Pulse Ox 02/23/23 08:00 94 02/23/23 07:31 36.6 C 80 18 151/106 H 95 02/23/23 07:23 83 16 92 02/23/23 05:17 37.2 C 85 18 164/97 H 95 02/23/23 04:08 82 O2 Del Method O2 Del Method 02/23/23 08:00 Room Air 02/23/23 07:31 Room Air 02/23/23 07:23 Nasal Cannula 02/23/23 05:17 Room Air 02/23/23 04:08 (1) Altered mental status Altered mental status type: disorientation Qualified Code(s): R41.0 - Disorientation, unspecified (9) Dementia Dementia type: unspecified type (10) Hypertension Hypertension type: unspecified Qualified Code(s): I10 - Essential (primary) hypertension
[2023-02-23] MEDS ORDERED: OLANZapine 10 MG/2.1 ML SDV IM PRN (13:28)
--- NOTE | 2023-02-23 13:34 | Palliative Care Consultation ---
Date of Consultation February 23, 2023 Assessment & Plan (1) Palliative care by specialist: I called pt and provided overview of Palliative Medicine, a subspecialty that provides specialized medical care for people living with a serious illness by offering a focus on quality of life. Palliative Medicine is often conflated with hospice: I advised patient/family that Palliative and hospice can be partners but we are not the same. It is important to understand the difference so that we may be informed, and not afraid. Palliative Medicine works to improve QOL through reduction of symptom burden/more control over their illness, for both the patient and family. Palliative medicine clinicians are board certified, specially-trained and another member of the patient's medical care team. We often provide an extra layer of support because our care is based on the needs of the patient, not the prognosis; as such, it's appropriate at any age/advancing stage of a serious illness and can be provided along with curative treatment. Palliative Medicine clinicians are also trained in advanced communication methodologies, to facilitate complex discussions about advanced illness planning, which are needed to help assure that the treatment choices match the patient's goals, aka delivering Goal Concordant care. Finally, we discussed that hospice is a visiting nurse service that focuses on care delivered at the very end of life for patients with terminal illness, with life expectancy less than 6 month. (2) Advanced care planning/counseling discussion: Spoke with , Nicole, by phone x 30 min. She is exhausted trying to care for pt. he is physically more than she can handle and she does not have more help. his agitation issues are more than she can manage and it castillo snto feel safe for her alone/without help. She is mentally, emotionally and physically exhausted. She loves him dearly and wants to given him the best care but cannot meet his needs. We reviewed that all chronic/progressive disease has a declining trajectory over time where facets of patient self-identity and independence are lost. Every acute event leads to a further decline, resulting- many times, in a new baseline. Advised that the greatest priority is to determine what matters most to pt, then family and to develop a plan of care that is aligned with those priorities. Advance illness planning conversations are conducted to review goals and expectations, support shared decision-making, and engage in disease specific advance care planning. This type of advance care planning is sometimes referred to as 'preparedness planning. It is used to review the risks and benefits of offered therapy, elicit and deepen understanding of the underlying illness and therapeutic options, ensure adequate psychosocial support, address existential concerns and coping, and engage in end-of-life planning. Preparedness planning is not meant to replace informed consent discussions. Palliative medicine plays a role in the process of deepening a patients understanding of this specific medical intervention and ensuring this treatment aligns with their goals of care remains a central tenet of the planning conversation. Patient was dc home 02/20/23 at approx 5pm and represented to our ED with CC of "family cannot manage pt at home" by 02/21/23 at approx 3pm. pt cannot be managed at home - family castillo snot have caregiver support and there is not sufficient resources to assure pt and caregiver safely. He will need SNF placement for LTC/comfort care. he is NOT a rehab candidate with terminal dementia and progressively worsening behav disturbances of end stage dementia. He will need a dementia care unit at SNF. Nicole is in agreement. She is not from the area and does not know area SNF. Her friend who was at the house with her suggested [facility]. I advised her I would pass that along to care [facility]. We reviewed the following facts about dementia: * Dementia is a terminal illness. Aggressive medical treatment for residents with advanced dementia is often inappropriate for medical reasons, has a low rate of success, and can have negative outcomes that hasten functional decline and . ([employer] Geriatrics Society Ethics Committee and Clinical Practice and Models of Care Committee. J Am Geriatr Soc. 2014 Aug;62(8):1590-3 and Seema SL, Baljeeto JM, Manuel SC, Mor V. A national study of the location of for older persons with dementia. J Am Geriatr Soc 2005; 53(2):299-305.) * Tube feeding in residents with advanced dementia does not increase survival. It does not prevent aspiration pneumonia, malnutrition or pressure ulcers. It does not reduce the risk of infections or improve functional status or comfort of the patient. (from: Danny REBOLLEDO, Tonio T Percutaneous endoscopic gastrostomy does not prolong survival in patients with dementia. Arch Hand Tool Filer Med 2003; 163(11):8924-1473 AND Latha DE, Sukhdeep MARLO, Beny J, Siena-Jennifer S, Bhanu RS. High short-term mortality in hospitalized patients with advanced dementia - Lack of benefit of tube feeding. Arch Hand Tool Filer Med 2001; 161(4):594- 599.) * Simple strategies involving hands-on care by well-trained staff such as massage, oral hygiene, changes in diet, and hand-feeding -- can prevent infection and manage feeding problems without resort to tube-feeding. * Tube feeding does not prevent aspiration pneumonia and might actually increase its incidence, and does not prevent the consequences of malnutrition * Hand feeding can be provided until the beginning of the dying process when all physiological processes shut down, note that cognitively intact cancer patients indicate that dying residents do not feel hunger and thirst. * Voluntary refusal of food and liquids is often initiated by hospice patients and does not result in discomfort * The majority of older Americans whose underlying cause of is attributable to dementia on their certificate in nursing homes. S ma-level factors, including the availability of hospital and penitentiary beds and the age of decedents in the population, explain, in part, the wide lceub-zr-[id number] variability in the proportion of dementia-related deaths occurring in the hospital. * Older adults with dementia frequently receive acute care in their last year of life although Hospice care was more common for home/CORRECTION residents. Overall time in hospice remains short due to the underutilization of the hospice benefit for terminal dementia (Karolyn MM, Obey JM, Alonso KM, George DE, Sulma PY. Dementia Care in the Last Year of Life: Experiences in a Community Practice and in Detention Facilities. J Palliat Care. 2022;38(2):135-142. doi:10.1177/[id number]) * Home Hospice is a valuable option for terminal dementia who desire to have peaceful EOL at home. Home hospice care for advanced dementia can improve symptom management and caregiver satisfaction, while decreasing caregiver burden, preventing hospitalizations and discontinuing unnecessary medications (Janeth TEIXEIRA, Coco R, Ernie G, et al. Home hospice for older people with advanced dementia: a helicopter pilot project [published correction appears in Isr J Health Policy Res. 2019 Apr 01;8(1):56]. Isr J Health Policy Res. 2019;8(1):42. Published 2018February 04. doi:10.1186/w82808-839-5645-x) * If the plan if for SNF placement, I recommend hospice at SNF: Hospice is a valuable service for persons with advanced dementia, particularly in management of pain, continuous involvement of the primary physician, and avoidance of hospitalization. Social support provided to caregivers is also important given their high levels of depressive symptoms and anxiety. The goal of care for residents with advanced dementia is primarily maintenance of function and patient should not be transferred to an acute care setting because hospitalization results in decline of functional abilities that do not recover after discharge back into penitentiary. If this is desired, then Care Mgt follow up is needed to determine if pt is eligible for hospice at SNF/deferred to CM and primary team. * Dementia meds dont help: Based on 45 trials (n=22,431) and three observational studies (n=190,076) that evaluated acetylcholinesterase inhibitors (AChEIs) (i.e., donepezil, galantamine, rivastigmine) and memantine, these medications may improve measures of global cognitive function in the short term, but the magnitude of change is small. (Daniella CD, Denton LA, Rahat RC, et al. Screening for Cognitive Impairment in Older Adults: An Evidence Update for the U.S. Preventive Services Task Force. Lee GUTIERREZ): Agency for Healthcare Research and Quality ([place]); November 2019.) Nicole agrees it is time to focus on patient comfort and QOL. She does not want any further aggressive work up or interventions. She affirms DNR/DNI She elects comfort care She wants comfort care at SNF with hospice if it can be added but otherwise comf ort care. (3) Dementia without behavioral disturbance: dementia discussed above Present on Admission?: Yes (4) Agitation due to dementia: Dementia related delirium protocol: * Haldol 0.5-4 mg PO or IV/SQ q 6 hours (may repeat q 1 hour PRN in severe delirium) - reserve for later in case the current options do not help * Olanzapine (Zyprexa) 2.5 20 mg PO QHS or Zyprexa (Zydis) (orally disintegrating tablet) 5-20 mg PO QHS * Quetiapine (Seroquel) 12.5 100 mg PO q 12-24 hours For pt: Continue IM Zyprexa x 2 days Begin Zyprexa Zydis ODT transition for SNF placement Increase to quetiapine 25mg PO BID Use Haldol liquid prn for breakthru agitation if too sedating, can reduce Quetiapine back to 12.5mg dose Present on Admission?: Yes (5) Altered mental status: Altered mental status type: disorientation Qualified Code(s): R41.0 - Disorientation, unspecified (6) Behavioural problem: Plan * Comfort care orders written * All non essential meds stopped. does not want any escalation in care. The focus is on comfort. Comfort Care Discharge Summary & Plan of Care Patient Name: Moody Lorenzo Brief Summary: terminal dementia with behav issues Comfort plan of care agreed upon by: Nicole schroeder Discussed with Patient/Family on: 02/22/23 CM will provide a copy of this plan to: Nicole Schroeder and to SNF nursing staffing coordinator Comfort plan of care parameters: 1. Family would like hospice added to their care if available. 2. NO rehab/PT/OT 3. Strictly End of Life care only 4. No escalation of care: do not increase oxygen, escalate therapies, etc. The focus is on comfort through end of life, assure this is accomplished with aggressive symptom management (i.e. relief of dyspnea, pain, etc.) 5. NO return to hospital 6. No labs or imaging, no surgery 7. PO as tolerated for comfort and pleasure/no dietary restriction 8. Continue Harris catheter for comfort/hygiene/skin protection 9. If difficulty urinating/commode/bedpan, ok to place Harris catheter for comfort/hygiene/skin protection 10. No calorie counts, no artificial nutrition or hydration, \\no feeding tubes 11. No IVs Medications to continue: See MAR Provider to contact if any questions about comfort plan of care: SNF Attending or hospice claim review medical director Thank you for allowing us to participate in the ongoing care of this patient. Please don't hesitate to call or page with any additional concerns. Dr. Adela Colon DNP Director, Palliative Care History of Present Illness Reason for Consultation: "goals of care" Attending Physician: Cecilia Peralta MD History of Present Illness 78yo male presents to ED on 02/22/23 for readmission less than 24 hr following dc on 02/20/23 Patient was brought back to ED due to medication non-compliance and family's inability to continue caring for patient at home, per admitting note: "78yo M with a PMH of CAD s/p PCI, stent, HTN, COPD, bronchiectasis, CKD III-IV, GERD, Sepulveda's esophagus, neuropathy, dementia, SVT versus paroxysmal atrial fibrillation, RBBB, and other medical problems who returns to ED due to medication non-compliance and family's inability to continue caring for patient at home. Patient was discharged home yesterday and other recommended for placement, patient elected to bring patient home to care for him there. Was discharged home on cefdinir 300 mg p.o. twice daily for 2 additional days to complete UTI treatment course. During previous admission, had some somnolence that was thought to be secondary to Seroquel dose, which was decreased to 12.5 p.o. twice daily. History obtained from and son at bedside. Since discharge home, patient has remained lethargic and has been refusing to eat, drink or take medications. They have had significant difficulty moving him and he grimaces in pain although unable to elicit much meaningful history from him due to dementia. States he has had chronic abdominal pain prior to admission. They do not feel they can care for him anymore. He has been screaming, swinging and spitting on staff in the ED. Was given IM Zyprexa 5 mg x 1 and is now resting peacefully." Palliative Med has been asked to see pt for "goals of care." pt is seen bedside today at 2pm. there is no family present. he is calmer but still restless. he is unable to answer any questions or provide HPI. he is unable to follow commands. Allergies Allergy/AdvReac Type Severity Reaction Status Date / Time benzocaine Allergy Severe SLOUGHING Verified 01/12/23 21:39 OF SKIN clindamycin Allergy Intermediate RASH Verified 01/12/23 21:39 clobetasol Allergy Intermediate ITCHING Verified 01/12/23 21:39 cyanocobalamin (vitamin B12) Allergy Intermediate Rash Verified 01/12/23 21:39 doxycycline Allergy Intermediate RASH Verified 01/12/23 21:39 Penicillins Allergy Intermediate HIVES Verified 01/12/23 21:39 phenethylamine Allergy Intermediate Itching Verified 01/12/23 21:39 povidone-iodine Allergy Intermediate Hives Verified 01/12/23 21:39 [From Betadine] soap [From Betadine] Allergy Intermediate Hives Verified 01/12/23 21:39 tea tree Allergy Intermediate ITCHING Verified 01/12/23 21:39 lorazepam [From Ativan] AdvReac Mild Confusion Verified 02/10/23 17:19 Home Medications Medication Instructions Recorded Confirmed Type atorvastatin 80 mg tablet 80 mg PO QPM 06/14/18 02/21/23 History cholecalciferol (vitamin D3) 50 2,000 unit PO HS 06/14/18 02/21/23 History mcg (2,000 unit) capsule (Vitamin D3) docusate sodium 100 mg capsule 100 mg PO BID PRN Constipation 06/14/18 02/21/23 History famotidine 20 mg tablet 20 mg PO BID 06/14/18 02/21/23 History ipratropium 20 mcg-albuterol 100 1 puff inhalation QID PRN 06/14/18 02/21/23 History mcg/actuation mist for inhalation Cough/WHEEZING (Combivent Respimat) metoprolol succinate 25 mg 25 mg PO BID 06/14/18 02/21/23 History tablet,extended release 24 hr nitroglycerin 0.4 mg sublingual 1 tab sublingual UD PRN Angina 06/14/18 02/21/23 History tablet oxybutynin chloride 5 mg tablet 5 mg PO BID 06/14/18 02/21/23 History albuterol sulfate 2.5 mg/3 mL 2.5 mg inhalation QID PRN 01/07/19 02/21/23 History (0.083 %) solution for nebulization Shortness Of Breath clopidogrel 75 mg tablet (Plavix) 75 mg PO QAM 11/03/19 02/21/23 History isosorbide mononitrate 30 mg 30 mg PO QAM 01/28/20 02/21/23 History tablet,extended release 24 hr aspirin 81 mg tablet,delayed 81 mg PO QAM 09/18/20 02/21/23 History release cyanocobalamin (vitamin B-12) 1,000 mcg subcut MONTHLY 09/18/20 02/21/23 History 1,000 mcg/mL injection solution tramadol 50 mg tablet 50 mg PO Q12 PRN Pain 09/18/20 02/21/23 History valacyclovir 500 mg tablet 500 mg PO BID PRN RECURRENT EPISODE 09/18/20 02/21/23 History levothyroxine 75 mcg tablet 75 mcg PO QAM 09/09/21 02/21/23 History (Synthroid) magnesium oxide 400 mg (241.3 mg 400 mg PO HS 09/09/21 02/21/23 History magnesium) tablet multivitamin 1 tab PO HS 09/09/21 02/21/23 History allopurinol 300 mg tablet 300 mg PO PM 12/04/22 02/21/23 History pantoprazole 40 mg tablet,delayed 40 mg PO BID #60 tabs 01/14/23 02/21/23 Rx release arformoterol 15 mcg/2 mL solution 2 ml inhalation BID 02/10/23 02/21/23 History for nebulization budesonide 0.5 mg/2 mL suspension 0.25 mg inhalation BID 02/10/23 02/21/23 History for nebulization calcium carbonate 200 mg calcium 400 mg PO BID PRN Acid Reflux 02/10/23 02/21/23 History (500 mg) chewable tablet (Tums) gabapentin 300 mg capsule 300 mg PO HS 02/10/23 02/21/23 History lanolin alcohols-mineral 1 applic topical DAILY PRN Dry Skin 02/10/23 02/21/23 History oil-w.petrolatum-ceresin topical cream (Eucerin topical cream) melatonin 5 mg tablet 5 mg PO HS 02/10/23 02/21/23 History triamcinolone acetonide 0.1 % 1 applic topical BID PRN flare up 02/10/23 02/21/23 History topical cream quetiapine 25 mg tablet 12.5 mg PO BID 30 days #0 tabs 02/19/23 02/21/23 Rx Patient History Medical History (Updated 02/23/23 @ 13:52 by Adela Colon DNP) Advanced care planning/counseling discussion Agitation due to dementia Anxiety Aortic aneurysm stable 3cm; pcp monitors Barretts esophagus Blood clotting disorder pt unable to verify Chronic anemia Chronic back pain Chronic kidney disease, stage 3 COPD (chronic obstructive pulmonary disease) inhalers and nebulizers daily Coronary artery disease Dementia without behavioral disturbance Diverticular disease GERD (gastroesophageal reflux disease) Gout Bieber filter in place Hearing deficit Hyperlipidemia Hypertension Idiopathic neuropathy Myocardial Infarction 2016--follows with Dr. Casanova Neuropathy Nocturnal hypoxemia On home oxygen therapy 2.5L N/C at HS Osteoarthritis Palliative care by specialist Poor historian Prostate cancer sx Recurrent genital herpes simplex (Unknown) Sciatica Sleep apnea oxygen at night Temporomandibular joint disorder Surgical History History of arthroscopic knee surgery History of bilateral cataract extraction History of cardiac cath x5--last 2018 History of colonoscopy History of esophagogastroduodenoscopy (EGD) History of heart artery stent multiple--last 2018 2/2 to restenosis History of hernia repair epigastric History of left shoulder replacement History of lumbar surgery History of mandibular surgery tmj repair History of prostate biopsy malignant History of prostatectomy History of right inguinal hernia repair History of right shoulder replacement History of tooth extraction all teeth removed Status post correction of deviated nasal septum Status post total hip replacement, bilateral Family History Other Family history not known due to adoption Social History Smoking Status: Unknown if ever smoked Tobacco Type: Cigarettes Do You Dip or Chew Tobacco: No; Preferred Language: [place] Communication Ability: Impaired Automobile 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 Bilateral slings noted covering IV sites. Bed linens in disarray. Patient will open eyes and occasionally turn head to verbal stimulus but is unable to answer questions or follow commands. There is very mild bitemporal wasting. His pupils are equal, round and reactive to light. Pharynx appears dry but he does not allow a detailed examination. Neck is supple and there is no gross stridor or high-pitched wheezing. Limited anterior chest exam reveals diffuse coarse scattered rhonchi. No obvious wheezing. No increased respiratory distress or use of accessory muscles. S1S2/irreg irreg. Abdomen is distended. Bowel sounds are present. There is muscle wasting and atrophy noted in bilateral upper and lower extremities. There is + vascular insufficiency changes to BLE. Skin is pale, + pallor, + warm to touch. Confused at baseline. Unable to follow commands. Does not answer any questions. Results & Data Vital Signs (Past 12 Hours) Vital Signs Temp Pulse Pulse Resp BP Pulse Ox Pulse Ox 02/23/23 08:00 94 02/23/23 07:31 36.6 C 80 18 151/106 H 95 02/23/23 07:23 83 16 92 02/23/23 05:17 37.2 C 85 18 164/97 H 95 02/23/23 04:08 82 O2 Del Method O2 Del Method 02/23/23 08:00 Room Air 02/23/23 07:31 Room Air 02/23/23 07:23 Nasal Cannula 02/23/23 05:17 Room Air 02/23/23 04:08 Laboratory Results Data reviewed Diagnostic Findings Data reviewed PG Care Time/CCT Total # of Minutes Spent Total Time Spent: 90 Total Time Spent with Patient: Total time spent is greater than 50% in coordination of care (as documented) at patient's floor/unit and/or counseling patient: I spent 90 minutes overall addressing this case: 15 in medical data review/discussion with referring provider(s) and/or preparation for the visit 15 in direct interaction with the patient 30 Advance Care Planning/Goals of Care discussions as detailed above in note (must be >16min) 15 in subsequent review and synthesis of assessment and plan 15 in communicating with other providers regarding the patient's case: nursing, CM, primary team Advanced Care Planning 12000 Advanced Care Planning 30 [place] [address] IN/OBS CONSULT LVL 5,80M Patient Type New History Comprehensive Exam Comprehensive Medical Decision Making High Complexity Diagnoses Palliative care by specialist Z51.5 Advanced care planning/counseling discussion Z71.89 Dementia without behavioral disturbance F03.90 Agitation due to dementia F03.911 Altered mental status R41.0 Altered mental status type: disorientation Behavioural problem Additional Codes Advanced Care Planning - 71787 Advanced Care Planning 30 Min: 51417 Advanced Care Planning 30 Min ([id number])
[2023-02-23] MEDS ORDERED: MoRPHine SULFATE 10 MG/0.5 ML UDP PO PRN (14:37)
[2023-02-23] MEDS ORDERED: haloperidoL 1 MG TAB PO PRN (14:37)
[2023-02-23] MEDS ORDERED: GLYCOPYRROLATE 0.2 MG/ML VIAL IV PRN (14:37)
[2023-02-23] MEDS ORDERED: HALOPERIDOL ORAL SOLN 2 MG/ML PO PRN (15:00)
[2023-02-23] MEDS: allopurinoL 300 MG TAB PO SCH (20:52)
[2023-02-23] MEDS: OLANZapine 10 MG/2.1 ML SDV IM SCH (23:04)
--- NOTE | 2023-02-24 05:52 | Electrocardiogram Report ---
Test Reason : Blood Pressure : / mmHG Vent. Rate : 092 BPM Atrial Rate : 090 BPM P-R Int : 000 ms QRS Dur : 112 ms QT Int : 402 ms P-R-T Axes : 000 -22 -22 degrees QTc Int : 497 ms Poor data quality, interpretation may be adversely affected Sinus rhythm with frequent Premature atrial complexes Nonspecific ST and T wave abnormality Incomplete right bundle branch block Abnormal ECG When compared with ECG of 22-FEB-2023 09:43, No significant change Confirmed by Star Mclaughlin ([id number]) on 02/24/2023 5:52:13 AM Also confirmed by Star Mclaughlin ([id number]) on 02/24/2023 5:53:20 AM Referred By: REFERRED SELF Confirmed By:Star Mclaughlin
[2023-02-24] MEDS: OLANZapine 10 MG/2.1 ML SDV IM SCH ×3 (06:10→20:56)
[2023-02-24] MEDS: LEVOTHYROXINE SODIUM 75 MCG TABLET PO SCH (06:10)
[2023-02-24] MEDS: BUDESONIDE 0.25 MG/2 ML VIAL (PULMICORT) INH SCH ×2 (07:03→19:23)
[2023-02-24] MEDS: QUEtiapine FUMARATE 25 MG TABLET PO SCH ×2 (09:01→20:59)
[2023-02-24] MEDS: FAMOTIDINE 20 MG TAB PO SCH ×2 (09:02→21:03)
[2023-02-24] MEDS: oxyBUTYnin chloride 5 MG TAB PO SCH ×2 (09:02→21:03)
[2023-02-24] MEDS: ISOSORBIDE MONO EXTENDED REL 30 MG TABCR PO SCH (09:08)
[2023-02-24] MEDS: METOPROLOL SUCC 25MG EXT REL TAB PO SCH ×2 (09:09→21:03)
--- NOTE | 2023-02-24 10:22 | Palliative Care Progress Note ---
Date of Service February 24, 2023 Assessment & Plan (1) Palliative care by specialist: (2) Dementia with behavioral disturbance: (3) Need for comfort care: Plan No changes at this time Awaiting SNF EOL care placement, see CM notes for more details Thank you for allowing us to participate in the ongoing care of this patient. Please don't hesitate to call or page with any additional concerns. Dr. Adela Colon DNP Director, Palliative Care Admission and Anticipated Discharge Date Admission Date: February 21, 2023 Subjective no signif agitation though restless at times, shifts around in bed/picks at bed linens no family present remains on comfort care no new acute issues Review of Systems Review of Systems: Unobtainable due to cognitive status Physical Exam Physical Exam: Elderly male, Lying in bed, restless. + open eyes and occasionally turn head to verbal stimulus but is unable to answer questions or follow commands. There is very mild bitemporal wasting. His pupils are equal, round and reactive to light. Pharynx appears dry but he does not allow a detailed examination. Neck is supple and there is no gross stridor or audible wheezing. No respiratory distress or use of accessory muscles. no JVD. Abdomen is distended. Bowel sounds are present. +muscle wasting and atrophy/no change from prior. There is + vascular insufficiency changes to BLE. Skin is pale, + pallor, + warm to touch. +confused, remains unable to follow commands. Results & Data Vital Signs (Past 12 Hours) Vital Signs Temp Pulse Resp BP Pulse Ox O2 Del Method 02/24/23 07:32 36.4 C L 83 18 159/88 H 94 Room Air 02/24/23 07:06 94 H 18 93 Room Air PG Care Time/CCT Total # of Minutes Spent Total Time Spent: 31 Total Time Spent with Patient: Total time spent is greater than 50% in coordination of care (as documented) at patient's floor/unit and/or counseling patient: Coding [place] [address] SUB INP/OBS CARE 3/50MIN Patient Type Established Medical Decision Making Moderate Complexity Diagnoses Palliative care by specialist Z51.5 Dementia with behavioral disturbance F03.918 Need for comfort care
--- NOTE | 2023-02-24 15:38 | Hospitalist Progress Note ---
Date of Service February 24, 2023 Assessment & Plan (1) Altered mental status: (2) HERNANDEZ (acute kidney injury): (3) Agitation: (4) Elevated troponin: (5) Elevated lactic acid level: (6) UTI (urinary tract infection): (7) PAF (paroxysmal atrial fibrillation): (8) Barretts esophagus: (9) Dementia: (10) Hypertension: (11) Hypothyroid: (12) Nocturnal hypoxemia: (13) Need for comfort care: (14) Dementia with behavioral disturbance: Plan This is a 78yo M with a PMH of CAD s/p PCI, stent, HTN, COPD, bronchiectasis, CKD III-IV, GERD, Sepulveda's esophagus, neuropathy, dementia, SVT versus paroxysmal atrial fibrillation, RBBB, and other medical problems who returns to ED due to medication non-compliance and family's inability to continue caring for patient at home. Comfort care Per discussion with palliative care, family electing comfort care (palliative care plan below): Comfort plan of care parameters: 1. Family would like hospice added to their care if available 2. NO rehab/PT/OT 3. Strictly End of Life care only 4. No escalation of care: do not increase oxygen, escalate therapies, etc. The focus is on comfort through end of life, assure this is accomplished with aggressive symptom management (i.e. relief of dyspnea, pain, etc.) 5. NO return to hospital 6. No labs or imaging, no surgery 7. PO as tolerated for comfort and pleasure/no dietary restriction 8. Continue Harris catheter for comfort/hygiene/skin protection 9. If difficulty urinating/commode/bedpan, ok to place Harris catheter for comfort/hygiene/skin protection 10. No calorie counts, no artificial nutrition or hydration, \no feeding tubes Dementia, agitation Seroquel dose changed with psych input on previous admission to Seroquel 12.5 BID Zyprexa as needed Resume oral medications Acute metabolic encephalopathy -> comfort care Acute kidney injury superimposed on CKD UTI Poor PO intake since discharge home, Cr 2.2 on admission (baseline mid-1s) Cr improved to 2. Continue gentle hydration, monitor BMP Avoid nephrotoxic agents as able Barretts esophagus Continue PPI, H2 sabi Elevated troponin CAD (coronary artery disease) -> comfort care S/p PCI, stent HS troponin significantly elevated on admission at 380 -> 334 In setting of HERNANDEZ, dehydration Not complaining of CP at home but difficult to tell in somnolent state Has refused to take any medication in 2 days ECG showing NSR, RBBB known, T wave changes in lateral leads, no acute ST elevation Continue aspirin, Plavix, isosorbide, metoprolol succinate, atorvastatin PAF (paroxysmal atrial fibrillation) History paroxysmal atrial fibrillation versus SVT 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 Peralta. Please see addendum. Admission and Anticipated Discharge Date Admission Date: February 21, 2023 Supervising Physician Co-Signing Physician Notes Patient was seen and examined indepdently. Chart reviewed. Case discussed with HAKEEM. Plan to discharge to [facility] tomorrow on hospice. Subjective Seen and examined in 316. Resting comfortably, not agitated at time of admission. No family present at bedside. On comfort care. ROS unobtainable due to reduced consciousness. Review of Systems Review of Systems: Unobtainable due to cognitive status Physical Exam Physical Exam: Gen: WD/WN, lethargic, sleeping comfortably HEENT: Normocephalic, dry mucous membranes Lung: Diminished lung sounds bilaterally, no wheezes/rales/rhonchi Heart: RRR Abdomen: Soft, NT, ND Extremities: no edema Skin: Warm, no rash Results & Data Results & Data Vital Signs (Past 12 Hours) Vital Signs Temp Pulse Resp BP Pulse Ox O2 Del Method 02/24/23 07:32 36.4 C L 83 18 159/88 H 94 Room Air 02/24/23 07:06 94 H 18 93 Room Air (1) Altered mental status Altered mental status type: disorientation Qualified Code(s): R41.0 - Disorientation, unspecified (9) Dementia Dementia type: unspecified type (10) Hypertension Hypertension type: unspecified Qualified Code(s): I10 - Essential (primary) hypertension
[2023-02-24] MEDS: allopurinoL 300 MG TAB PO SCH (21:03)
[2023-02-25] MEDS: LEVOTHYROXINE SODIUM 75 MCG TABLET PO SCH (05:47)
[2023-02-25] MEDS: OLANZapine 10 MG/2.1 ML SDV IM SCH ×2 (05:48→13:33)
[2023-02-25] MEDS: QUEtiapine FUMARATE 25 MG TABLET PO SCH (09:23)
[2023-02-25] MEDS: METOPROLOL SUCC 25MG EXT REL TAB PO SCH (09:30)
[2023-02-25] MEDS: oxyBUTYnin chloride 5 MG TAB PO SCH (09:30)
[2023-02-25] MEDS: FAMOTIDINE 20 MG TAB PO SCH (09:32)
[2023-02-25] MEDS: ISOSORBIDE MONO EXTENDED REL 30 MG TABCR PO SCH (09:32)
[2023-02-25] MEDS ORDERED: OLANZapine ZYDIS 5 MG ORALLY DIS. TAB PO SCH (21:00)
== END 2023-02-25 15:08 | DRG 682 ==
LOC: ED 15:30 → EDINP 18:54 → 2S 21:49 → 3E 02-23 17:38
DX: R77.8 Other specified abnormalities of plasma proteins; E87.0 Hyperosmolality and hypernatremia; Z88.0 Allergy status to penicillin; Z20.822 Contact with and (suspected) exposure to COVID-19; Z95.5 Presence of coronary angioplasty implant and graft; K21.9 Gastro-esophageal reflux disease without esophagitis; D63.1 Anemia in chronic kidney disease; E03.9 Hypothyroidism, unspecified; Z66 Do not resuscitate; G62.9 Polyneuropathy, unspecified; G93.41 Metabolic encephalopathy; E87.20 Acidosis, unspecified; N39.0 Urinary tract infection, site not specified; F03.918 Unspecified dementia, unspecified severity, with other behavioral disturbance; Z88.1 Allergy status to other antibiotic agents; E86.0 Dehydration; Z79.82 Long term (current) use of aspirin; I48.0 Paroxysmal atrial fibrillation; J47.9 Bronchiectasis, uncomplicated; Z79.891 Long term (current) use of opiate analgesic; Z79.02 Long term (current) use of antithrombotics/antiplatelets; I12.9 Hypertensive chronic kidney disease with stage 1 through stage 4 chronic kidney disease, or unspecified chronic kidney disease; Z79.899 Other long term (current) drug therapy; Z51.5 Encounter for palliative care; R62.7 Adult failure to thrive; M10.9 Gout, unspecified; I25.10 Atherosclerotic heart disease of native coronary artery without angina pectoris; R09.02 Hypoxemia; N17.9 Acute kidney failure, unspecified; Z96.643 Presence of artificial hip joint, bilateral; Z88.4 Allergy status to anesthetic agent; N18.4 Chronic kidney disease, stage 4 (severe); K22.70 Barrett's esophagus without dysplasia; I45.10 Unspecified right bundle-branch block; Z79.890 Hormone replacement therapy; Z88.8 Allergy status to other drugs, medicaments and biological substances

== ENCOUNTER 2023-02-26 21:45 | Inpatient (IN) ==
[2023-02-26] MEDS ORDERED: ONDANSETRON INJ 2 MG/ML 2 ML VIAL IV STA (21:58)
[2023-02-26] MEDS ORDERED: SODIUM CHLORIDE 0.9% 500 ML IV SCH (22:00)
[2023-02-26 22:18] LABS: Basophils # (auto) 0.06 K/uL (0-0.2); Basophils % (auto) 0.6 %; Eosinophils # (auto) 0.08 K/uL (0-0.50); Eosinophils % (auto) 0.8 %; Hematocrit (blood only) 32.1 % (42.0-52.0); Hemoglobin 10.4 g/dl (14.0-18.0); Immature Granulocytes # (auto) 0.18 K/uL (0.01-0.20); Immature Granulocytes % (auto) 1.9 %; Lymphocytes # (auto) 1.18 K/uL (1.2-3.4); Lymphocytes % (auto) 12.3 %; Mean Corpuscular Hemoglobin 34.2 pg (25.0-34.0); Mean Corpuscular Hgb Conc 32.4 g/dL (32.0-36.0); Mean Corpuscular Volume 105.6 fL (80.0-100.0); Mean Platelet Volume 10.8 fL (9.4-12.4); Monocytes # (auto) 1.02 K/uL (0.11-0.59); Monocytes % (auto) 10.7 %; Neutrophils # (auto) 7.04 K/uL (1.40-6.50); Neutrophils % (auto) 73.7 %; Platelet Count 287 K/uL (130-400); RDW Coefficient of Variation 14.9 % (11.5-14.5); RDW Standard Deviation 57.4 fL (36.4-46.3); Red Blood Count 3.04 M/uL (4.70-6.10); White Blood Count 9.56 K/ul (4.8-10.8)
--- NOTE | 2023-02-26 22:33 | Emergency Department Note ---
History of Present Illness General Chief complaint: Illness Stated complaint: DEHYDRATION Time Seen by Provider: 02/26/23 21:53 History of Present Illness This 78-year-old male on palliative care from the custodial presents for increased confusion and dehydration who was just discharged yesterday. Family brings him back in as he has not been drinking or eating anything at the custodial and appears more confused. Patient has dementia and history is obtained from the family. Patient appears to have abdominal pain on exam. He does move all extremities. No obvious injury on exam. Home Medications Medication Instructions Recorded Confirmed Type docusate sodium 100 mg capsule 100 mg PO Q12H PRN Constipation 06/14/18 02/26/23 History famotidine 20 mg tablet 20 mg PO BID 06/14/18 02/26/23 History metoprolol succinate 25 mg 25 mg PO BID 06/14/18 02/26/23 History tablet,extended release 24 hr oxybutynin chloride 5 mg tablet 5 mg PO BID 06/14/18 02/26/23 History albuterol sulfate 2.5 mg/3 mL 2.5 mg inhalation Q6H PRN 01/07/19 02/26/23 History (0.083 %) solution for nebulization Shortness Of Breath isosorbide mononitrate 30 mg 30 mg PO QAM 01/28/20 02/26/23 History tablet,extended release 24 hr valacyclovir 500 mg tablet 500 mg PO BID PRN RECURRENT EPISODE 09/18/20 02/26/23 History levothyroxine 75 mcg tablet 75 mcg PO QAM 09/09/21 02/26/23 History (Synthroid) allopurinol 300 mg tablet 300 mg PO PM 12/04/22 02/26/23 History pantoprazole 40 mg tablet,delayed 40 mg PO BID #60 tabs 01/14/23 02/26/23 Rx release arformoterol 15 mcg/2 mL solution 2 ml inhalation BID 02/10/23 02/26/23 History for nebulization budesonide 0.5 mg/2 mL suspension 0.25 mg inhalation BID 02/10/23 02/26/23 History for nebulization calcium carbonate 200 mg calcium 400 mg PO BID PRN Acid Reflux 02/10/23 02/26/23 History (500 mg) chewable tablet (Tums) triamcinolone acetonide 0.1 % 1 applic topical BID PRN flare up 02/10/23 02/26/23 History topical cream haloperidol lactate 2 mg/mL oral 2 mg PO Q4H PRN agitation 30 days 02/25/23 02/26/23 Rx concentrate #15 mL quetiapine 25 mg tablet 25 mg PO BID 30 days #60 tabs 02/25/23 02/26/23 Rx acetaminophen 325 mg tablet 650 mg PO Q6H PRN TEMP/PAIN 02/26/23 02/26/23 History (Tylenol) morphine concentrate 100 mg/5 mL 5 mg PO Q3H PRN Pain 02/26/23 02/26/23 History (20 mg/mL) oral solution morphine concentrate 100 mg/5 mL 5 mg PO Q6H 02/26/23 02/26/23 History (20 mg/mL) oral solution olanzapine 5 mg disintegrating 5 mg PO HS 02/26/23 02/26/23 History tablet Allergies Allergy/AdvReac Type Severity Reaction Status Date / Time benzocaine Allergy Severe SLOUGHING Verified 02/26/23 23:38 OF SKIN clindamycin Allergy Intermediate RASH Verified 02/26/23 23:38 clobetasol Allergy Intermediate ITCHING Verified 02/26/23 23:38 cyanocobalamin (vitamin B12) Allergy Intermediate Rash Verified 02/26/23 23:38 doxycycline Allergy Intermediate RASH Verified 02/26/23 23:38 Penicillins Allergy Intermediate HIVES Verified 02/26/23 23:38 phenethylamine Allergy Intermediate Itching Verified 02/26/23 23:38 povidone-iodine Allergy Intermediate Hives Verified 02/26/23 23:38 [From Betadine] soap [From Betadine] Allergy Intermediate Hives Verified 02/26/23 23:38 tea tree Allergy Intermediate ITCHING Verified 02/26/23 23:38 lorazepam [From Ativan] AdvReac Mild Confusion Verified 02/26/23 23:38 Past Med/Surg History Medical History Advanced care planning/counseling discussion Agitation due to dementia Anxiety Aortic aneurysm stable 3cm; pcp monitors Barretts esophagus Blood clotting disorder pt unable to verify Chronic anemia Chronic back pain Chronic kidney disease, stage 3 COPD (chronic obstructive pulmonary disease) inhalers and nebulizers daily Coronary artery disease Dementia with behavioral disturbance Dementia without behavioral disturbance Diverticular disease GERD (gastroesophageal reflux disease) Gout [place] filter in place Hearing deficit Hyperlipidemia Hypertension Idiopathic neuropathy Myocardial Infarction 2017--follows with Dr. Casanova Need for comfort care Neuropathy Nocturnal hypoxemia On home oxygen therapy 2.5L N/C at Osteoarthritis Palliative care by specialist Jose Alejandro yangian Prostate cancer sx Recurrent genital herpes simplex (Unknown) Sciatica Sleep apnea oxygen at night Temporomandibular joint disorder Surgical History History of arthroscopic knee surgery History of bilateral cataract extraction History of cardiac cath x5--last 2018 History of colonoscopy History of esophagogastroduodenoscopy (EGD) History of heart artery stent multiple--last 11/03 to restenosis History of hernia repair epigastric History of left shoulder replacement History of lumbar surgery History of mandibular surgery tmj repair History of prostate biopsy malignant History of prostatectomy History of right inguinal hernia repair History of right shoulder replacement History of tooth extraction all teeth removed Status post correction of deviated nasal septum Status post total hip replacement, bilateral Family History Other Family history not known due to adoption Social History Smoking Status: Unknown if ever smoked Tobacco Type: Cigarettes Do You Dip or Chew Tobacco: No; Preferred Language: Tam[place] Communication Ability: Impaired Crystal Slicer Required: No Beliefs That Will Affect Care: None marital status: Current Living Situation: Spouse Current Living Situation Comment: lives with and son current occupational status: retired How many Children do You have: 4 Feels Safe at Home: Yes Assistive Devices: Cane and Wheelchair Review of Systems Unobtainable due to cognitive status Physical Exam Vital Signs Vital Signs - 24 hr 02/26/23 21:51 02/26/23 22:39 02/26/23 22:40 Temperature 36.7 C Temperature Source Oral Pulse Rate 81 80 Pulse Rhythm Regular Regular Pulse Strength Normal Respiratory Rate 18 21 Respiratory Effort / Characteristics Non-Labored Spontaneous Respiratory Depth Normal Respiratory Pattern Regular Blood Pressure 125/94 Blood Pressure Mean 104 Blood Pressure Position Lying Pulse Oximetry 93 88 L 92 Oxygen Delivery Method Room Air Room Air Nasal Cannula Oxygen Flow Rate 4 Sepsis Recent Fever Within 48 Hours No Sepsis New/Unexplained Change in Mental Status No Sepsis Action Taken by Nursing No Action Required 02/26/23 22:25 Temperature Temperature Source Pulse Rate 84 Pulse Rhythm Pulse Strength Respiratory Rate Respiratory Effort / Characteristics Respiratory Depth Respiratory Pattern Blood Pressure Blood Pressure Mean Blood Pressure Position Pulse Oximetry Oxygen Delivery Method Oxygen Flow Rate Sepsis Recent Fever Within 48 Hours Sepsis New/Unexplained Change in Mental Status Sepsis Action Taken by Nursing VITALS: Vitals are noted on the nurse's note and reviewed by myself. Vital signs stable. GENERAL: Elderly male alert and demented, in no acute distress, nondiaphoretic, well-developed well-nourished. SKIN: The skin was without rashes, erythema, edema, or bruising. There is no tenting of the skin. Capillary reflex less than 2 seconds. HEAD: Normocephalic atraumatic. EARS: External auditory canals clear, tympanic membranes pearly bains without erythema or effusion bilaterally. EYES: Pupils equal round and reactive to light and accommodation. Conjunctivae without injection, sclerae without icterus. Extraocular movements intact. NOSE: Patent, turbinates without inflammation or discharge. MOUTH: Mucous membranes moist. Pharynx without erythema or exudate. Uvula midline. Airway patent. Tongue does not deviate. NECK: Supple without nuchal rigidity. No lymphadenopathy. No thyromegaly. Cervical spine is nontender. No JVD. HEART: Regular rate and rhythm LUNGS: Clear to auscultation bilaterally without wheezes, rales or rhonchi. No retractions or accessory muscle use. ABDOMEN: Positive bowel sounds x 4. Normal tympanic percussion. Soft, tender mid abdomen, without masses or organomegaly. Delgado sign negative. No guarding or rebound tenderness. No CVA tenderness MUSCULOSKELETAL: No muscle atrophy, erythema, or edema noted. NEURO: Patient was alert but not oriented to person place and time. Normal sensation to light and sharp touch. No focal neurological deficits. Course Administered Medications Discontinued Medications Sodium Chloride (Nss) 500 mls @ 999 mls/hr IV .Q31M MANDY Stop: 02/26/23 22:30 Last Infusion: 02/26/23 22:50 Dose: 0 mls/hr Documented By: Admin: 02/26/23 22:15 Dose: 999 mls/hr Documented By: MAIRA Lactated Ringer's (Lr) 500 mls @ 999 mls/hr IV .Q31M ONE Stop: 02/26/23 23:14 Last Admin: 02/26/23 22:51 Dose: 999 mls/hr Documented By: MAIRA Ondansetron HCl (Ondansetron Inj 2 Mg/Ml 2 Ml Vial) 4 mg IV NOW STA Stop: 02/26/23 21:59 Last Admin: 02/26/23 22:17 Dose: 4 mg Documented By: MAIRA Medical Decision Making Medical Records Attestation: I reviewed the patient's medical records. Home Medications Current Medication List: was personally reviewed by me Laboratory Data Attestation: I reviewed the patient's lab results. 02/26/23 22:02 02/26/23 22:02 Lab Results 02/26/23 02/26/23 02/26/23 Range/Units 22:02 22:02 22:02 WBC 9.56 (4.8-10.8) K/ul RBC 3.04 L (4.70-6.10) M/uL Hgb 10.4 L (14.0-18.0) g/dl Hct 32.1 L (42.0-52.0) % MCV 105.6 H (80.0-100.0) fL MCH 34.2 H (25.0-34.0) pg MCHC 32.4 (32.0-36.0) g/dL RDW Std Deviation 57.4 H (36.4-46.3) fL RDW Coeff of Zoë 14.9 H (11.5-14.5) % Plt Count 287 (130-400) K/uL MPV 10.8 (9.4-12.4) fL Immature Gran % (Auto) 1.9 % Neut % (Auto) 73.7 % Lymph % (Auto) 12.3 % [place] % (Auto) 10.7 % Eos % (Auto) 0.8 % Baso % (Auto) 0.6 % Neut # (Auto) 7.04 H (1.40-6.50) K/uL Lymph # (Auto) 1.18 L (1.2-3.4) K/uL [place] # (Auto) 1.02 H (0.11-0.59) K/uL Eos # (Auto) 0.08 (0-0.50) K/uL Baso # (Auto) 0.06 (0-0.2) K/uL Immature Gran # (Auto) 0.18 (0.01-0.20) K/uL PT 13.3 H (9.0-12.0) Seconds INR 1.2 H (0.9-1.1) Sodium 153 H (136-145) mmol/L Potassium 4.2 (3.5-5.1) mmol/L Chloride 119 H (98-107) mmol/L Carbon Dioxide 23 (21-32) mmol/L Anion Gap 11 (3-11) BUN 40 H (6-23) mg/dl Creatinine 1.86 H (0.6-1.4) mg/dl Est Cr Clr Drug Dosing Not Reportable Est GFR ( Amer) 39.3 ml/min Est GFR (Non-Af Amer) 33.9 ml/min BUN/Creatinine Ratio 21.5 H (10-20) Glucose 100 H (70-99(Fasting)) mg/dl POC Glucose (70-99) mg/dl Lactate (0.4-2.0) mmol/L Calcium 9.3 (8.6-10.3) mg/dl Magnesium 1.9 (1.7-2.4) mg/dl Total Bilirubin 1.0 (0.2-1.0) mg/dl AST 62 H (13-39) U/L ALT 59 H (7-52) U/L Alkaline Phosphatase 99 (34-104) U/L Total Creatine Kinase 92 (30-223) U/L Troponin I High Sens 100.2 H* (0-20) pg/ml Total Protein 7.1 (6.0-8.3) gm/dl Albumin 3.3 L (3.4-5.0) gm/dl Globulin 3.8 (2.5-4.0) gm/dl Albumin/Globulin Ratio 0.9 (0.9-2) TSH (0.300-4.500) uIu/ml Free T4 (0.61-1.60) ng/dl Urine Color Urine Appearance (Clear) Urine pH (4.5-7.5) Ur Specific [place] (1.000-1.030) Urine Protein (Negative) Urine Glucose (UA) (Negative) Urine Ketones (Negative) Urine Blood (Negative) Urine Nitrite (Negative) Urine Bilirubin (Negative) Urine Urobilinogen (Negative) Ur Leukocyte Esterase (Negative) Urine RBC (0-4) /hpf Urine WBC (0-5) /hpf Ur Epithelial Cells (0-5) /lpf Urine Bacteria (Negative) Urine Yeast (None Prsent) SARS-CoV-2, RNA, NAAT (NEGATIVE) 02/26/23 02/26/23 02/26/23 Range/Units 22:02 22:02 22:02 WBC (4.8-10.8) K/ul RBC (4.70-6.10) M/uL Hgb (14.0-18.0) g/dl Hct (42.0-52.0) % MCV (80.0-100.0) fL MCH (25.0-34.0) pg MCHC (32.0-36.0) g/dL RDW Std Deviation (36.4-46.3) fL RDW Coeff of Zoë (11.5-14.5) % Plt Count (130-400) K/uL MPV (9.4-12.4) fL Immature Gran % (Auto) % Neut % (Auto) % Lymph % (Auto) % [place] % (Auto) % Eos % (Auto) % Baso % (Auto) % Neut # (Auto) (1.40-6.50) K/uL Lymph # (Auto) (1.2-3.4) K/uL [place] # (Auto) (0.11-0.59) K/uL Eos # (Auto) (0-0.50) K/uL Baso # (Auto) (0-0.2) K/uL Immature Gran # (Auto) (0.01-0.20) K/uL PT (9.0-12.0) Seconds INR (0.9-1.1) Sodium (136-145) mmol/L Potassium (3.5-5.1) mmol/L Chloride (98-107) mmol/L Carbon Dioxide (21-32) mmol/L Anion Gap (3-11) BUN (6-23) mg/dl Creatinine (0.6-1.4) mg/dl Est Cr Clr Drug Dosing Est GFR ( Amer) ml/min Est GFR (Non-Af Amer) ml/min BUN/Creatinine Ratio (10-20) Glucose (70-99(Fasting)) mg/dl POC Glucose (70-99) mg/dl Lactate 1.8 (0.4-2.0) mmol/L Calcium (8.6-10.3) mg/dl Magnesium (1.7-2.4) mg/dl Total Bilirubin (0.2-1.0) mg/dl AST (13-39) U/L ALT (7-52) U/L Alkaline Phosphatase (34-104) U/L Total Creatine Kinase (30-223) U/L Troponin I High Sens (0-20) pg/ml Total Protein (6.0-8.3) gm/dl Albumin (3.4-5.0) gm/dl Globulin (2.5-4.0) gm/dl Albumin/Globulin Ratio (0.9-2) TSH 10.153 H (0.300-4.500) uIu/ml Free T4 1.04 (0.61-1.60) ng/dl Urine Color Urine Appearance (Clear) Urine pH (4.5-7.5) Ur Specific [place] (1.000-1.030) Urine Protein (Negative) Urine Glucose (UA) (Negative) Urine Ketones (Negative) Urine Blood (Negative) Urine Nitrite (Negative) Urine Bilirubin (Negative) Urine Urobilinogen (Negative) Ur Leukocyte Esterase (Negative) Urine RBC (0-4) /hpf Urine WBC (0-5) /hpf Ur Epithelial Cells (0-5) /lpf Urine Bacteria (Negative) Urine Yeast (None Prsent) SARS-CoV-2, RNA, NAAT NEGATIVE (NEGATIVE) 02/26/23 02/26/23 Range/Units 22:22 Unknown WBC (4.8-10.8) K/ul RBC (4.70-6.10) M/uL Hgb (14.0-18.0) g/dl Hct (42.0-52.0) % MCV (80.0-100.0) fL MCH (25.0-34.0) pg MCHC (32.0-36.0) g/dL RDW Std Deviation (36.4-46.3) fL RDW Coeff of Zoë (11.5-14.5) % Plt Count (130-400) K/uL MPV (9.4-12.4) fL Immature Gran % (Auto) % Neut % (Auto) % Lymph % (Auto) % [place] % (Auto) % Eos % (Auto) % Baso % (Auto) % Neut # (Auto) (1.40-6.50) K/uL Lymph # (Auto) (1.2-3.4) K/uL [place] # (Auto) (0.11-0.59) K/uL Eos # (Auto) (0-0.50) K/uL Baso # (Auto) (0-0.2) K/uL Immature Gran # (Auto) (0.01-0.20) K/uL PT (9.0-12.0) Seconds INR (0.9-1.1) Sodium (136-145) mmol/L Potassium (3.5-5.1) mmol/L Chloride (98-107) mmol/L Carbon Dioxide (21-32) mmol/L Anion Gap (3-11) BUN (6-23) mg/dl Creatinine (0.6-1.4) mg/dl Est Cr Clr Drug Dosing Est GFR ( Amer) ml/min Est GFR (Non-Af Amer) ml/min BUN/Creatinine Ratio (10-20) Glucose (70-99(Fasting)) mg/dl POC Glucose 92 (70-99) mg/dl Lactate (0.4-2.0) mmol/L Calcium (8.6-10.3) mg/dl Magnesium (1.7-2.4) mg/dl Total Bilirubin (0.2-1.0) mg/dl AST (13-39) U/L ALT (7-52) U/L Alkaline Phosphatase (34-104) U/L Total Creatine Kinase (30-223) U/L Troponin I High Sens (0-20) pg/ml Total Protein (6.0-8.3) gm/dl Albumin (3.4-5.0) gm/dl Globulin (2.5-4.0) gm/dl Albumin/Globulin Ratio (0.9-2) TSH (0.300-4.500) uIu/ml Free T4 (0.61-1.60) ng/dl Urine Color Yellow Urine Appearance Clear (Clear) Urine pH 5.0 (4.5-7.5) Ur Specific [place] >= 1.030 (1.000-1.030) Urine Protein 1+ H (Negative) Urine Glucose (UA) Negative (Negative) Urine Ketones Negative (Negative) Urine Blood 3+ H (Negative) Urine Nitrite Negative (Negative) Urine Bilirubin 1+ H (Negative) Urine Urobilinogen Negative (Negative) Ur Leukocyte Esterase 1+ H (Negative) Urine RBC 0-4 (0-4) /hpf Urine WBC 10-30 H (0-5) /hpf Ur Epithelial Cells 0-5 (0-5) /lpf Urine Bacteria 1+ H (Negative) Urine Yeast Present A (None Prsent) SARS-CoV-2, RNA, NAAT (NEGATIVE) Imaging Data Attestation: I personally reviewed and interpreted this imaging study as follows: Radiologist's Impression: Abdomen/Pelvis CT 02/26/23 21:58 Exam(s): CT ABDOMEN + PELVIS Without Contrast EXAM: CT Abdomen and Pelvis Without Intravenous Contrast CLINICAL HISTORY: Reason for exam: mid abd pain, AMS. TECHNIQUE: Axial computed tomography images of the abdomen and pelvis without intravenous contrast. CTDI is 61.49 mGy and DLP is 1766.13 mGy-cm. Automated exposure control was utilized for the study. A dose lowering technique was utilized adhering to the principles of ALARA. COMPARISON: CT abdomen pelvis 02/10/2023 FINDINGS: Artifacts: Artifact within the pelvis. Lung bases: Atelectasis at the lung bases. Mediastinum: Hiatal hernia. ABDOMEN: Liver: Unremarkable. Gallbladder and bile ducts: No stones in the gallbladder. No inflammatory changes. Pancreas: Unremarkable. Spleen: Unremarkable. Adrenals: Unremarkable. Kidneys and ureters: No urolithiasis or obstructive uropathy. Stomach and bowel: Unremarkable. PELVIS: Appendix: No findings to suggest acute appendicitis. Bladder: Unremarkable. Reproductive: Unremarkable as visualized. ABDOMEN and PELVIS: Intraperitoneal space: No fluid collection or free air. Bones/joints: Subacute appearing L2 inferior endplate fracture. Bilateral hip arthroplasties. Unchanged cystic lesion within the left iliac wing. Soft tissues: Unremarkable. Vasculature: Abdominal aortic aneurysm measuring 3.5 cm. IVC filter within the IVC. Aortobiiliac atherosclerotic calcifications. Lymph nodes: Unremarkable. IMPRESSION: 1. No acute abnormality identified. 2. Abdominal aortic aneurysm measuring 3.5 cm. 3. Hiatal hernia. 4. Subacute appearing L2 inferior endplate fracture. No osseous retropulsion. Electronically signed by: Reza Glynn MD 02/27/23 01:[address] 02/26/23 21:58 Exam(s): CT HEAD Without Contrast EXAM: CT Head Without Intravenous Contrast CLINICAL HISTORY: Reason for exam: ams. TECHNIQUE: Axial computed tomography images of the head/brain without intravenous contrast. CTDI is 61.49 mGy and DLP is 1766.13 mGy-cm. Automated exposure control was utilized for the study. A dose lowering technique was utilized adhering to the principles of ALARA. COMPARISON: No relevant prior studies available. FINDINGS: Artifacts: Images are degraded by motion artifact. Brain: No hemorrhage, cerebral edema, or mass-effect. Mild parenchymal atrophy. Chronic microvascular ischemic changes. Ventricles: Unremarkable. Bones/joints: Unremarkable. No fracture. Soft tissues: Unremarkable. Sinuses: No acute sinusitis. Mastoid air cells: Partial right mastoid effusion. IMPRESSION: 1. No acute abnormality. 2. Chronic microvascular ischemic changes. 3. Partial right mastoid effusion. Electronically signed by: Reza Glynn MD 02/27/23 01:26 AM MDM Narrative Prior records/ancillary studies reviewed and summarized above. Nursing notes reviewed. Additional history obtained from family. The patient's history was concerning for increased confusion and dehydration in a demented patient on palliative care. Differential diagnosis: Etiologies such as progression of dementia, dehydration, metabolic, infection, hypo/hyperglycemia, electrolyte abnormalities, cardiac sources, intracerebral event, toxicologic, neurologic, as well as others were entertained. Physical examination: As above. ER treatment provided: IV Lock An order was placed for continuous cardiac monitoring. The monitor shows a rate of 60-100 with a sinus rhythm per my interpretation. IV fluids, Rocephin On reassessment the patient felt better. Diagnostics interpretation by me: ECG: Ordered for weakness EKG: Normal sinus, incomplete right bundle, no acute ST-T wave changes. Impression incomplete right bundle branch independent interpreted by myself and similar to prior The labs Independently Interpreted by myself revealed stable creatinine per chart review Mild anemia, stable glucose, negative lactic Troponin is trending down per chart review Hypernatremia Urine concerning for possible infection sent for culture. No prior urine culture for review. Imaging studies: Chest x-ray with no acute consolidation, pneumothorax or free air per my independent rotation CTs of the head abdomen pelvis were reviewed and read by stat radiology. Consultation: A consultation was placed with the hospitalist. The case was discussed and diagnostics were reviewed. The patient was evaluated in the ER for further treatment. Exam and history seem consistent with dehydration with elevated sodium and possible UTI who is more confused per family. Patient was hydrated as above. He was given LR after the NS as the sodium was elevated. He was requesting admission. Medicine was consulted and they will evaluate the patient for admis wanda. Labs and diagnostics were independent interpreted by myself. Radiology read the CAT scans. By the evaluation outlined above emergent etiologies such as cardiac sources, intracerebral event, toxologic, neurologic, abnormalities blood glucose, metabolic, as well as others were deemed relatively unlikely. The family/pt informed about the findings as listed above. All questions were an swered and pleased with the treatment. The chart was completed utilizing [employer] Speech voice recognition software. Grammatical errors, random word insertions, pronoun errors, and incomplete sente nces are an occassional consequence of this system due to software limitations, ambient noise, and hardware issues. Any formal questions or concerns about the content, text, or information contained within the body of this dictation should be directly addressed to the physician facilities maintenance assistant for clarification. Impression & Plan Acute dehydration, Elevated troponin, Acute hypernatremia, Acute UTI Discharge Plan Visit Data Chief Complaint: Illness Stated Complaint: DEHYDRATION ED Provider: Jose Juan Herrera ED Midlevel Provider: Haley Hickman Discharge Problem: Acute dehydration, Elevated troponin, Acute hypernatremia, Acute UTI Patient Disposition: Admitted As Inpatient Condition: Fair Forms Stand Alone Forms: [facility] [employer] Prescriptions Prescriptions: No Action famotidine 20 mg tablet 20 mg PO BID docusate sodium 100 mg Capsule 100 mg PO Q12H PRN (Reason: Constipation) metoprolol succinate 25 mg tablet extended release 24 hr 25 mg PO BID oxybutynin chloride 5 mg tablet 5 mg PO BID albuterol sulfate 2.5 mg /3 mL (0.083 %) Solution For Nebulization 2.5 mg INHALATION Q6H PRN (Reason: Shortness Of Breath) isosorbide mononitrate 30 mg tablet extended release 24 hr 30 mg PO QAM valacyclovir 500 mg tablet 500 mg PO BID PRN (Reason: RECURRENT EPISODE) triamcinolone acetonide 0.1 % Cream 1 applic TOPICAL BID PRN (Reason: flare up) calcium carbonate [Tums] 200 mg calcium (500 mg) Tablet,Chewable 400 mg PO BID PRN (Reason: Acid Reflux) budesonide 0.5 mg/2 mL Suspension For Nebulization 0.25 mg INHALATION BID Rx Instructions: rinse mouth arformoterol 15 mcg/2 mL Solution For Nebulization 2 ml INHALATION BID quetiapine 25 mg Tablet 25 mg PO BID 30 Days Qty: 60 0RF haloperidol lactate 2 mg/mL Concentrate 2 mg PO Q4H PRN (Reason: agitation) 30 Days Qty: 15 0RF acetaminophen [Tylenol] 325 mg Tablet 650 mg PO Q6H PRN (Reason: TEMP/PAIN) morphine concentrate 100 mg/5 mL (20 mg/mL) Solution 5 mg PO Q3H PRN (Reason: Pain) morphine concentrate 100 mg/5 mL (20 mg/mL) solution 5 mg PO Q6H Rx Instructions: TO START 02/26/23 @ 1800 olanzapine 5 mg tablet,disintegrating 5 mg PO HS levothyroxine [Synthroid] 75 mcg Tablet 75 mcg PO QAM allopurinol 300 mg tablet 300 mg PO PM pantoprazole 40 mg Tablet,Delayed Release (Dr/Ec) 40 mg PO BID Qty: 60 0RF Referrals Referrals: Jacob Jones MD [Primary Care Provider] -
[2023-02-26 22:36] LABS: Alanine Aminotransferase 59 U/L (7-52); Albumin Globulin Ratio 0.9 (0.9-2); Albumin Level 3.3 gm/dl (3.4-5.0); Alkaline Phosphatase 99 U/L (34-104); Anion Gap 11 (3-11); Aspartate Aminotransferase 62 U/L (13-39); BUN Creatinine Ratio 21.5 (10-20); Blood Urea Nitrogen 40 mg/dl (6-23); Calcium 9.3 mg/dl (8.6-10.3); Carbon Dioxide 23 mmol/L (21-32); Chloride 119 mmol/L (98-107); Creatine Kinase 92 U/L (30-223); Est GFR (African American) 39.3 ml/min; Est GFR (Non-African American) 33.9 ml/min; Globulin 3.8 gm/dl (2.5-4.0); Glucose 100 mg/dl (70-99(Fasting)); Magnesium 1.9 mg/dl (1.7-2.4); Potassium 4.2 mmol/L (3.5-5.1); Sodium 153 mmol/L (136-145); Total Protein 7.1 gm/dl (6.0-8.3)
[2023-02-26 22:44] LABS: INR 1.2 (0.9-1.1); Prothrombin Time 13.3 Seconds (9.0-12.0)
[2023-02-26] MEDS ORDERED: LACTATED RINGER'S 500 ML IV ONE (22:44)
[2023-02-26 22:45] LABS: Troponin I High Sensitivity 100.2 pg/ml (0-20)
[2023-02-26 22:51] LABS: Thyroid Stimulating Hormone 10.153 uIu/ml (0.300-4.500)
[2023-02-26 23:26] LABS: T4 Free Thyroxine 1.04 ng/dl (0.61-1.60)
[2023-02-27 00:04] LABS: Appearance Urine Clear (Clear); Bilirubin Urine 1+ (Negative); Blood Urine 3+ (Negative); Color Urine Yellow; Glucose Urine UA Negative (Negative); Ketones Urine Negative (Negative); Leukocyte Esterase Urine 1+ (Negative); Nitrite Urine Negative (Negative); Protein Urine 1+ (Negative); Specific Gravity Urine >= 1.030 (1.000-1.030); Urobilinogen Urine Negative (Negative)
[2023-02-27 00:18] LABS: Epithelial Cell Urine 0-5 /lpf (0-5); RBC Urine 0-4 /hpf (0-4)
[2023-02-27 00:19] LABS: Bacteria Urine 1+ (Negative)
--- NOTE | 2023-02-27 01:23 | CT Scan Report ---
Exam(s): CT ABDOMEN + PELVIS Without Contrast EXAM: CT Abdomen and Pelvis Without Intravenous Contrast CLINICAL HISTORY: Reason for exam: mid abd pain, AMS. TECHNIQUE: Axial computed tomography images of the abdomen and pelvis without intravenous contrast. CTDI is 61.49 mGy and DLP is 1766.13 mGy-cm. Automated exposure control was utilized for the study. A dose lowering technique was utilized adhering to the principles of ALARA. COMPARISON: CT abdomen pelvis 02/10/2023 FINDINGS: Artifacts: Artifact within the pelvis. Lung bases: Atelectasis at the lung bases. Mediastinum: Hiatal hernia. ABDOMEN: Liver: Unremarkable. Gallbladder and bile ducts: No stones in the gallbladder. No inflammatory changes. Pancreas: Unremarkable. Spleen: Unremarkable. Adrenals: Unremarkable. Kidneys and ureters: No urolithiasis or obstructive uropathy. Stomach and bowel: Unremarkable. PELVIS: Appendix: No findings to suggest acute appendicitis. Bladder: Unremarkable. Reproductive: Unremarkable as visualized. ABDOMEN and PELVIS: Intraperitoneal space: No fluid collection or free air. Bones/joints: Subacute appearing L2 inferior endplate fracture. Bilateral hip arthroplasties. Unchanged cystic lesion within the left iliac wing. Soft tissues: Unremarkable. Vasculature: Abdominal aortic aneurysm measuring 3.5 cm. IVC filter within the IVC. Aortobiiliac atherosclerotic calcifications. Lymph nodes: Unremarkable. IMPRESSION: 1. No acute abnormality identified. 2. Abdominal aortic aneurysm measuring 3.5 cm. 3. Hiatal hernia. 4. Subacute appearing L2 inferior endplate fracture. No osseous retropulsion. Electronically signed by: Reza Glynn MD 02/27/23 01:22 AM
[2023-02-27] MEDS ORDERED: cefTRIAXone SODIUM 2,000 MG/70 ML BAG IV STA (01:25)
--- NOTE | 2023-02-27 01:27 | CT Scan Report ---
Exam(s): CT HEAD Without Contrast EXAM: CT Head Without Intravenous Contrast CLINICAL HISTORY: Reason for exam: ams. TECHNIQUE: Axial computed tomography images of the head/brain without intravenous contrast. CTDI is 61.49 mGy and DLP is 1766.13 mGy-cm. Automated exposure control was utilized for the study. A dose lowering technique was utilized adhering to the principles of ALARA. COMPARISON: No relevant prior studies available. FINDINGS: Artifacts: Images are degraded by motion artifact. Brain: No hemorrhage, cerebral edema, or mass-effect. Mild parenchymal atrophy. Chronic microvascular ischemic changes. Ventricles: Unremarkable. Bones/joints: Unremarkable. No fracture. Soft tissues: Unremarkable. Sinuses: No acute sinusitis. Mastoid air cells: Partial right mastoid effusion. IMPRESSION: 1. No acute abnormality. 2. Chronic microvascular ischemic changes. 3. Partial right mastoid effusion. Electronically signed by: Reza Glynn MD 02/27/23 01:26 AM
[2023-02-27] MEDS ORDERED: DEXTROSE 5% 1,000 ML IV ONE (02:09)
--- NOTE | 2023-02-27 03:53 | History & Physical Report ---
Date of Service February 27, 2023 Assessment & Plan (1) Encephalopathy: Plan: Delirium on dementia Multifactorial: Hypernatremia secondary to decreased p.o. intake ? Complicated UTI, no sepsis for now Rule out opioid narcosis given morphine as needed medication at SNF Troponin elevation in the setting of chronic kidney dysfunction chronic respiratory failure secondary to COPD on home O2 hx CAD status post stenting/PVD PAF, patient NSR hypertension, stable GERD on PPI prediabetes, hemoglobin A1c of 6.2 last December 2022 chronic anemia, hemoglobin at baseline prostate cancer status post surgery past tobacco abuse Medical telemetry D5 IVF for hypernatremia Urine CS, Cefepime Narcan trial Follow troponin Palliative care consultation RE review goals of care with patient's family given miscommunication as per family account DVT prophylaxis. Heparin subcu Continue medical management and uphold DNR status from discharge for now as per discussion patient's daughter/secondary contact, Ms. Abena De Anda (contact #[phone]). Multiple messages requesting for call back to discuss patient issues left by undersigned on patient's 's phone ( Nicole Lorenzo, contact #[phone]). Text document was generated using [employer] voice recognition software. It may contain grammatical or spelling errors. Kindly contact undersigned for clarification of any documentation item in question. History of Present Illness Chief Complaint: Increased confusion, patient not aware about hospice discharge as per daughter Primary Care Provider: Jacob Jones MD History obtained from patient family and records. Unable to obtain history from patient secondary to obtunded state. Medical history significant for chronic respiratory failure secondary to COPD on home O2, CAD status post stenting, hx PVD, PAF, hypertension, hyperlipidemia, CRI (baseline creatinine 2s), GERD, prediabetes, chronic anemia (baseline hemoglobin 10), prostate cancer status post surgery, dementia, genital HSV as per records, past tobacco abuse. Three [facility] confinements over the last 2 months. Recent confinement February 21-2022 for metabolic encephalopathy. Family elected comfort care after discussion with palliative care as per documentation. DNR status confirmed by patient as per note. Patient discharged to hospice care at [facility] yesterday. Patient not drinking/eating well at [facility] facility. Patient upset according to patient daughter. Patient did not understand meaning of hospice/comfort care as per family. Patient claims nobody talked to her about patient being transferred to [facility] facility. She had wanted her to go to a [facility] in [place], [place] was closer to home and where patient's daughter was employed as a nurse. Patient anticipated patient recovery with familiar faces around him as per patient daughter. Patient also complaining of abdominal pain as per report. Patient demanded for patient to be brought to ER for evaluation. IV ceftriaxone administered at the ER. Medical History as above Surgical History : Prostatectomy, hip surgery, shoulder surgery, IVC filter placement Family History : Heart disease, COPD, throat cancer Personal/Social history : Past tobacco abuse, occasional EtOH intake, retired [employer] Allergies Allergy/AdvReac Type Severity Reaction Status Date / Time benzocaine Allergy Severe SLOUGHING Verified 02/26/23 23:38 OF SKIN clindamycin Allergy Intermediate RASH Verified 02/26/23 23:38 clobetasol Allergy Intermediate ITCHING Verified 02/26/23 23:38 cyanocobalamin (vitamin B12) Allergy Intermediate Rash Verified 02/26/23 23:38 doxycycline Allergy Intermediate RASH Verified 02/26/23 23:38 Penicillins Allergy Intermediate HIVES Verified 02/26/23 23:38 phenethylamine Allergy Intermediate Itching Verified 02/26/23 23:38 povidone-iodine Allergy Intermediate Hives Verified 02/26/23 23:38 [From Betadine] soap [From Betadine] Allergy Intermediate Hives Verified 02/26/23 23:38 tea tree Allergy Intermediate ITCHING Verified 02/26/23 23:38 lorazepam [From Ativan] AdvReac Mild Confusion Verified 02/26/23 23:38 Home Medications Medication Instructions Recorded Confirmed Type docusate sodium 100 mg capsule 100 mg PO Q12H PRN Constipation 06/14/18 02/26/23 History famotidine 20 mg tablet 20 mg PO BID 06/14/18 02/26/23 History metoprolol succinate 25 mg 25 mg PO BID 06/14/18 02/26/23 History tablet,extended release 24 hr oxybutynin chloride 5 mg tablet 5 mg PO BID 06/14/18 02/26/23 History albuterol sulfate 2.5 mg/3 mL 2.5 mg inhalation Q6H PRN 01/07/19 02/26/23 History (0.083 %) solution for nebulization Shortness Of Breath isosorbide mononitrate 30 mg 30 mg PO QAM 01/28/20 02/26/23 History tablet,extended release 24 hr valacyclovir 500 mg tablet 500 mg PO BID PRN RECURRENT EPISODE 09/18/20 02/26/23 History levothyroxine 75 mcg tablet 75 mcg PO QAM 09/09/21 02/26/23 History (Synthroid) allopurinol 300 mg tablet 300 mg PO PM 12/04/22 02/26/23 History pantoprazole 40 mg tablet,delayed 40 mg PO BID #60 tabs 01/14/23 02/26/23 Rx release arformoterol 15 mcg/2 mL solution 2 ml inhalation BID 02/10/23 02/26/23 History for nebulization budesonide 0.5 mg/2 mL suspension 0.25 mg inhalation BID 02/10/23 02/26/23 History for nebulization calcium carbonate 200 mg calcium 400 mg PO BID PRN Acid Reflux 02/10/23 02/26/23 History (500 mg) chewable tablet (Tums) triamcinolone acetonide 0.1 % 1 applic topical BID PRN flare up 02/10/23 02/26/23 History topical cream haloperidol lactate 2 mg/mL oral 2 mg PO Q4H PRN agitation 30 days 02/25/23 02/26/23 Rx concentrate #15 mL quetiapine 25 mg tablet 25 mg PO BID 30 days #60 tabs 02/25/23 02/26/23 Rx acetaminophen 325 mg tablet 650 mg PO Q6H PRN TEMP/PAIN 02/26/23 02/26/23 History (Tylenol) morphine concentrate 100 mg/5 mL 5 mg PO Q3H PRN Pain 02/26/23 02/26/23 History (20 mg/mL) oral solution morphine concentrate 100 mg/5 mL 5 mg PO Q6H 02/26/23 02/26/23 History (20 mg/mL) oral solution olanzapine 5 mg disintegrating 5 mg PO HS 02/26/23 02/26/23 History tablet Past Med/Surg History Medical History Advanced care planning/counseling discussion Agitation due to dementia Anxiety Aortic aneurysm stable 3cm; pcp monitors Barretts esophagus Blood clotting disorder pt unable to verify Chronic anemia Chronic back pain Chronic kidney disease, stage 3 COPD (chronic obstructive pulmonary disease) inhalers and nebulizers daily Coronary artery disease Dementia with behavioral disturbance Dementia without behavioral disturbance Diverticular disease GERD (gastroesophageal reflux disease) Gout Gracie filter in place Hearing deficit Hyperlipidemia Hypertension Idiopathic neuropathy Myocardial Infarction 2016--follows with Dr. Casanova Need for comfort care Neuropathy Nocturnal hypoxemia On home oxygen therapy 2.5L N/C at HS Osteoarthritis Palliative care by specialist Jose Alejandro historian Prostate cancer sx Recurrent genital herpes simplex (Unknown) Sciatica Sleep apnea oxygen at night Temporomandibular joint disorder Surgical History History of arthroscopic knee surgery History of bilateral cataract extraction History of cardiac cath x5--last 2018 History of colonoscopy History of esophagogastroduodenoscopy (EGD) History of heart artery stent multiple--last 11/03 to restenosis History of hernia repair epigastric History of left shoulder replacement History of lumbar surgery History of mandibular surgery tmj repair History of prostate biopsy malignant History of prostatectomy History of right inguinal hernia repair History of right shoulder replacement History of tooth extraction all teeth removed Status post correction of deviated nasal septum Status post total hip replacement, bilateral Family History Other Family history not known due to adoption Social History Smoking Status: Unknown if ever smoked Tobacco Type: Cigarettes Hx Alcohol Use: No Hx Substance Use: No Preferred Language: Hungarian Communication Ability: Impaired Communication Ability Comment: unable to assess Injection Molding Technician Required: No Beliefs That Will Affect Care: None marital status: Current Living Situation: [facility] Current Living Situation Comment: lives with and son current occupational status: retired How many Children do You have: 4 Other Information That Helps Us Care for You: No Feels Safe at Home: Yes Safety Concerns: Feels Safe At This Time Assistive Devices: Cane and Wheelchair Review of Systems Review of Systems: Could not be reliably obtained secondary to dementia Physical Exam Physical Exam: GENERAL: Obtunded, chronically ill, no respiratory distress SKIN: Pallor, warm HEENT: pale palpebral conjunctivae, no ptosis, dry buccal mucosa, nasal cannula in place NECK : Supple, no tenderness CHEST : Decreased breath sounds, no tenderness HEART :RRR, no obvious murmurs ABDOMEN: Some distention, nontender EXTREMITIES :no LE swelling/no LE tenderness, no other conspicuous deformities noted NEUROLOGIC : Obtunded, no facial asymmetry, gait and stance not assessed Results & Data Results & Data Vital Signs (Past 12 Hours) Vital Signs Temp Pulse Resp BP Pulse Ox O2 Del Method O2 Flow Rate 02/27/23 02:25 75 02/26/23 22:25 84 02/26/23 22:40 92 Nasal Cannula 4 02/26/23 22:39 80 21 88 L Room Air 02/26/23 21:51 36.7 C 81 18 125/94 93 Room Air Laboratory Results Laboratory Results WBC 9.56 K/ul (4.8-10.8) 02/26/23 22:02 RBC 3.04 M/uL (4.70-6.10) L 02/26/23 22:02 Hgb 10.4 g/dl (14.0-18.0) L 02/26/23 22:02 Hct 32.1 % (42.0-52.0) L 02/26/23 22:02 MCV 105.6 fL (80.0-100.0) H 02/26/23 22:02 MCH 34.2 pg (25.0-34.0) H 02/26/23 22:02 MCHC 32.4 g/dL (32.0-36.0) 02/26/23 22:02 RDW Std Deviation 57.4 fL (36.4-46.3) H 02/26/23 22:02 RDW Coeff of Zoë 14.9 % (11.5-14.5) H 02/26/23 22:02 Plt Count 287 K/uL (130-400) 02/26/23 22:02 MPV 10.8 fL (9.4-12.4) 02/26/23 22:02 Immature Gran % (Auto) 1.9 % 02/26/23 22:02 Neut % (Auto) 73.7 % 02/26/23 22:02 Lymph % (Auto) 12.3 % 02/26/23 22:02 Coal % (Auto) 10.7 % 02/26/23 22:02 Eos % (Auto) 0.8 % 02/26/23 22:02 Baso % (Auto) 0.6 % 02/26/23 22:02 Neut # (Auto) 7.04 K/uL (1.40-6.50) H 02/26/23 22:02 Lymph # (Auto) 1.18 K/uL (1.2-3.4) L 02/26/23 22:02 Coal # (Auto) 1.02 K/uL (0.11-0.59) H 02/26/23 22:02 Eos # (Auto) 0.08 K/uL (0-0.50) 02/26/23 22:02 Baso # (Auto) 0.06 K/uL (0-0.2) 02/26/23 22:02 Immature Gran # (Auto) 0.18 K/uL (0.01-0.20) 02/26/23 22:02 PT 13.3 Seconds (9.0-12.0) H 02/26/23 22:02 INR 1.2 (0.9-1.1) H 02/26/23 22:02 Sodium 153 mmol/L (136-145) H 02/26/23 22:02 Potassium 4.2 mmol/L (3.5-5.1) 02/26/23 22:02 Chloride 119 mmol/L (98-107) H 02/26/23 22:02 Carbon Dioxide 23 mmol/L (21-32) 02/26/23 22:02 Anion Gap 11 (3-11) 02/26/23 22:02 BUN 40 mg/dl (6-23) H 02/26/23 22:02 Creatinine 1.86 mg/dl (0.6-1.4) H 02/26/23 22:02 Est Cr Clr Drug Dosing Not Reportable 02/26/23 22:02 Est GFR ( Amer) 39.3 ml/min 02/26/23 22:02 Est GFR (Non-Af Amer) 33.9 ml/min 02/26/23 22:02 BUN/Creatinine Ratio 21.5 (10-20) H 02/26/23 22:02 Glucose 100 mg/dl (70-99(Fasting)) H 02/26/23 22:02 POC Glucose 92 mg/dl (70-99) 02/26/23 22:22 Lactate 1.8 mmol/L (0.4-2.0) 02/26/23 22:02 Calcium 9.3 mg/dl (8.6-10.3) 02/26/23 22:02 Magnesium 1.9 mg/dl (1.7-2.4) 02/26/23 22:02 Total Bilirubin 1.0 mg/dl (0.2-1.0) 02/26/23 22:02 AST 62 U/L (13-39) H 02/26/23 22:02 ALT 59 U/L (7-52) H 02/26/23 22:02 Alkaline Phosphatase 99 U/L (34-104) 02/26/23 22:02 Total Creatine Kinase 92 U/L (30-223) 02/26/23 22:02 Troponin I High Sens 100.2 pg/ml (0-20) H* 02/26/23 22:02 Total Protein 7.1 gm/dl (6.0-8.3) 02/26/23 22:02 Albumin 3.3 gm/dl (3.4-5.0) L 02/26/23 22:02 Globulin 3.8 gm/dl (2.5-4.0) 02/26/23 22:02 Albumin/Globulin Ratio 0.9 (0.9-2) 02/26/23 22:02 TSH 10.153 uIu/ml (0.300-4.500) H 02/26/23 22:02 Free T4 1.04 ng/dl (0.61-1.60) 02/26/23 22:02 Urine Color Yellow 02/26/23 Unknown Urine Appearance Clear (Clear) 02/26/23 Unknown Urine pH 5.0 (4.5-7.5) 02/26/23 Unknown Ur Specific Collins >= 1.030 (1.000-1.030) 02/26/23 Unknown Urine Protein 1+ (Negative) H 02/26/23 Unknown Urine Glucose (UA) Negative (Negative) 02/26/23 Unknown Urine Ketones Negative (Negative) 02/26/23 Unknown Urine Blood 3+ (Negative) H 02/26/23 Unknown Urine Nitrite Negative (Negative) 02/26/23 Unknown Urine Bilirubin 1+ (Negative) H 02/26/23 Unknown Urine Urobilinogen Negative (Negative) 02/26/23 Unknown Ur Leukocyte Esterase 1+ (Negative) H 02/26/23 Unknown Urine RBC 0-4 /hpf (0-4) 02/26/23 Unknown Urine WBC 10-30 /hpf (0-5) H 02/26/23 Unknown Ur Epithelial Cells 0-5 /lpf (0-5) 02/26/23 Unknown Urine Bacteria 1+ (Negative) H 02/26/23 Unknown Urine Yeast Present (None Prsent) A 02/26/23 Unknown SARS-CoV-2, RNA, NAAT NEGATIVE (NEGATIVE) 02/26/23 22:02 Impressions Abdomen/Pelvis CT 02/26/23 21:58 Exam(s): CT ABDOMEN + PELVIS Without Contrast EXAM: CT Abdomen and Pelvis Without Intravenous Contrast CLINICAL HISTORY: Reason for exam: mid abd pain, AMS. TECHNIQUE: Axial computed tomography images of the abdomen and pelvis without intravenous contrast. CTDI is 61.49 mGy and DLP is 1766.13 mGy-cm. Automated exposure control was utilized for the study. A dose lowering technique was utilized adhering to the principles of ALARA. COMPARISON: CT abdomen pelvis 02/10/2023 FINDINGS: Artifacts: Artifact within the pelvis. Lung bases: Atelectasis at the lung bases. Mediastinum: Hiatal hernia. ABDOMEN: Liver: Unremarkable. Gallbladder and bile ducts: No stones in the gallbladder. No inflammatory changes. Pancreas: Unremarkable. Spleen: Unremarkable. Adrenals: Unremarkable. Kidneys and ureters: No urolithiasis or obstructive uropathy. Stomach and bowel: Unremarkable. PELVIS: Appendix: No findings to suggest acute appendicitis. Bladder: Unremarkable. Reproductive: Unremarkable as visualized. ABDOMEN and PELVIS: Intraperitoneal space: No fluid collection or free air. Bones/joints: Subacute appearing L2 inferior endplate fracture. Bilateral hip arthroplasties. Unchanged cystic lesion within the left iliac wing. Soft tissues: Unremarkable. Vasculature: Abdominal aortic aneurysm measuring 3.5 cm. IVC filter within the IVC. Aortobiiliac atherosclerotic calcifications. Lymph nodes: Unremarkable. IMPRESSION: 1. No acute abnormality identified. 2. Abdominal aortic aneurysm measuring 3.5 cm. 3. Hiatal hernia. 4. Subacute appearing L2 inferior endplate fracture. No osseous retropulsion. Electronically signed by: Reza Glynn MD 02/27/23 01:[address] 02/26/23 21:58 Exam(s): CT HEAD Without Contrast EXAM: CT Head Without Intravenous Contrast CLINICAL HISTORY: Reason for exam: ams. TECHNIQUE: Axial computed tomography images of the head/brain without intravenous contrast. CTDI is 61.49 mGy and DLP is 1766.13 mGy-cm. Automated exposure control was utilized for the study. A dose lowering technique was utilized adhering to the principles of ALARA. COMPARISON: No relevant prior studies available. FINDINGS: Artifacts: Images are degraded by motion artifact. Brain: No hemorrhage, cerebral edema, or mass-effect. Mild parenchymal atrophy. Chronic microvascular ischemic changes. Ventricles: Unremarkable. Bones/joints: Unremarkable. No fracture. Soft tissues: Unremarkable. Sinuses: No acute sinusitis. Mastoid air cells: Partial right mastoid effusion. IMPRESSION: 1. No acute abnormality. 2. Chronic microvascular ischemic changes. 3. Partial right mastoid effusion. Electronically signed by: Reza Glynn MD 02/27/23 01:26 AM Diagnostic Findings Chest x-ray as per my interpretation cardiomegaly, atelectasis EKG as per my interpretation : Rate 80, NSR, LAD, LAFB, incomplete RBBB, T wave abnormalities inferior leads, ST depression lateral leads
[2023-02-27] MEDS ORDERED: NALOXONE HCL 0.4 MG/1 ML VIAL/CARP IV STA (04:00)
[2023-02-27] MEDS ORDERED: PROMETHAZINE HCL 6.25 MG in SODIUM CHLORIDE 0.9% 50 ML IV PRN (04:01)
[2023-02-27] MEDS ORDERED: ACETAMINOPHEN 325 MG TAB PO PRN (04:38)
[2023-02-27] MEDS: HEPARIN SOD 5,000 UNIT/0.5 ML VIAL SQ SCH ×3 (05:37→21:14)
[2023-02-27] MEDS ORDERED: IPRATROPIUM BROMIDE NEB SOLN 0.02% 2.5 ML VIAL INH STA (05:45)
[2023-02-27] MEDS ORDERED: LEVALBUTEROL 1.25 MG/3 ML NEB NEB STA (05:45)
[2023-02-27] MEDS ORDERED: XOPENEX/ATROVENT 1.25mg/0.5MG NEB COMBO NEB STA (05:45)
[2023-02-27] MEDS: LEVOTHYROXINE SODIUM 75 MCG TABLET PO SCH (06:05)
[2023-02-27 07:03] LABS: HCO3 ABG 23 mmol/L (19-24); Oxygen Saturation ABG 96.6 % (90-95); PCO2 ABG 40 mmHg (35-46); PO2 ABG 79 mmHg (80-95); pH ABG 7.37 (7.35-7.45)
[2023-02-27 07:05] LABS: Basophils # (auto) 0.06 K/uL (0-0.2); Basophils % (auto) 0.6 %; Eosinophils # (auto) 0.11 K/uL (0-0.50); Eosinophils % (auto) 1.1 %; Hematocrit (blood only) 29.5 % (42.0-52.0); Hemoglobin 9.2 g/dl (14.0-18.0); Immature Granulocytes # (auto) 0.17 K/uL (0.01-0.20); Immature Granulocytes % (auto) 1.7 %; Lymphocytes # (auto) 0.85 K/uL (1.2-3.4); Lymphocytes % (auto) 8.7 %; Mean Corpuscular Hemoglobin 34.1 pg (25.0-34.0); Mean Corpuscular Hgb Conc 31.2 g/dL (32.0-36.0); Mean Corpuscular Volume 109.3 fL (80.0-100.0); Mean Platelet Volume 10.7 fL (9.4-12.4); Monocytes # (auto) 1.28 K/uL (0.11-0.59); Monocytes % (auto) 13.1 %; Neutrophils # (auto) 7.32 K/uL (1.40-6.50); Neutrophils % (auto) 74.8 %; Platelet Count 248 K/uL (130-400); RDW Coefficient of Variation 14.8 % (11.5-14.5); RDW Standard Deviation 59.1 fL (36.4-46.3); White Blood Count 9.79 K/ul (4.8-10.8)
[2023-02-27 07:05] LABS: Allen Test Pos (Pos)
[2023-02-27 07:21] LABS: BUN Creatinine Ratio 22.2 (10-20); Calcium 8.9 mg/dl (8.6-10.3); Creatinine Clr Calc Pharmacy 34.9 ml/min; Est GFR (African American) 40.9 ml/min; Est GFR (Non-African American) 35.3 ml/min; Potassium 3.9 mmol/L (3.5-5.1)
[2023-02-27 07:42] LABS: Troponin I High Sensitivity 72.3 pg/ml (0-20)
[2023-02-27] MEDS: DEXTROSE 5% 1,000 ML IV SCH ×2 (08:38→16:19)
[2023-02-27] MEDS: CEFEPIME 2,000 MG in SYRINGE 0 ML IV SCH ×2 (08:38→18:37)
[2023-02-27] MEDS: PANTOprazole 40 MG TAB PO SCH ×2 (08:41→21:15)
[2023-02-27] MEDS: METOPROLOL SUCC 25MG EXT REL TAB PO SCH ×2 (08:41→21:14)
[2023-02-27] MEDS: FAMOTIDINE 20 MG TAB PO SCH ×2 (08:41→21:14)
[2023-02-27] MEDS: ISOSORBIDE MONO EXTENDED REL 30 MG TABCR PO SCH (08:41)
--- NOTE | 2023-02-27 08:45 | XRay Report ---
XR chest 1V portable HISTORY: 78 years-old Male weakness acute weakness COMPARISON: 02/21/2023 TECHNIQUE: AP view of the chest FINDINGS: Cardiac silhouette is enlarged. Atherosclerosis of the aorta. No pneumothorax, large pleural effusion or overt pulmonary edema. Subsegmental left basilar opacities. Degenerative changes of the spine. Bi lateral shoulder arthroplasties. IMPRESSION: 1. Cardiomegaly without pulmonary edema. 2. Subsegmental left basilar opacities favor atelectasis. A mild nonspecific pneumonitis could appear similarly. ACT 112: Negative or not required by law. The above report was generated using voice recognition software. It may contain grammatical, syntax o r spelling errors. Electronically signed by: Claudio Orourke M.D. 02/27/2023 8:43 AM
--- NOTE | 2023-02-27 08:46 | XRay Report ---
XR chest 1V portable HISTORY: 78 years-old Male weakness acute weakness COMPARISON: 02/21/2023 TECHNIQUE: AP view of the chest FINDINGS: Cardiac silhouette is enlarged. Atherosclerosis of the aorta. No pneumothorax, large pleural effusion or overt pulmonary edema. Mild subsegmental bibasilar opacities. Degenerative changes of the spine. Bilateral shoulder arthroplasties. IMPRESSION: 1. Cardiomegaly without pulmonary edema. 2. Mild subsegmental bibasilar opacities favor atelectasis. ACT 112: Negative or not required by law. The above report was generated using voice recognition software. It may contain grammatical, syntax o r spelling errors. Electronically signed by: Claudio Orourke M.D. 02/27/2023 8:45 AM
[2023-02-27] MEDS ORDERED: oxyBUTYnin chloride 5 MG TAB PO SCH (09:00)
[2023-02-27] MEDS ORDERED: QUEtiapine FUMARATE 25 MG TABLET PO SCH (09:00)
--- NOTE | 2023-02-27 10:45 | Electrocardiogram Report ---
Test Reason : Blood Pressure : / mmHG Vent. Rate : 082 BPM Atrial Rate : 082 BPM P-R Int : 162 ms QRS Dur : 090 ms QT Int : 448 ms P-R-T Axes : 027 -22 -71 degrees QTc Int : 523 ms Sinus rhythm with Premature supraventricular complexes Right bundle branch block Abnormal ECG When compared with ECG of 22-FEB-2023 17:45, No significant change was found Confirmed by Marco Antonio Trujillo ([id number]) on 02/27/2023 10:45:01 AM Referred By: REFERRED SELF Confirmed By:Marco Antonio Trujillo
[2023-02-27 15:02] LABS: BUN Creatinine Ratio 20.9 (10-20); Calcium 8.8 mg/dl (8.6-10.3); Creatinine Clr Calc Pharmacy 35.5 ml/min; Est GFR (African American) 41.7 ml/min; Potassium 3.9 mmol/L (3.5-5.1)
--- NOTE | 2023-02-27 16:14 | Hospitalist Progress Note ---
Date of Service February 27, 2023 Assessment & Plan (1) Encephalopathy: Plan: Delirium on dementia Multifactorial: Hypernatremia secondary to decreased p.o. intake ? Complicated UTI, no sepsis for now Rule out opioid narcosis given morphine as needed medication at SNF Troponin elevation in the setting of chronic kidney dysfunction chronic respiratory failure secondary to COPD on home O2 hx CAD status post stenting/PVD PAF, patient NSR hypertension, stable GERD on PPI prediabetes, hemoglobin A1c of 6.2 last December 2022 chronic anemia, hemoglobin at baseline prostate cancer status post surgery past tobacco abuse Medical telemetry D5 IVF for hypernatremia Urine CS, Cefepime Narcan trial Follow troponin Palliative care consultation RE review goals of care with patient's family given miscommunication as per family account DVT prophylaxis. Heparin subcu Continue medical management and uphold DNR status from discharge for now as per discussion patient's daughter/secondary contact, Ms. Abena D eAnda (contact #[phone]). Multiple messages requesting for call back to discuss patient issues left by undersigned on patient's 's phone (Gila Nicole Lorenzo, contact #[phone]). Text document was generated using [employer] voice recognition software. It may contain grammatical or spelling errors. Kindly contact undersigned for clarification of any documentation item in question. Admission and Anticipated Discharge Date Admission Date: February 27, 2023 Physical Exam Physical Exam: GENERAL: Obtunded, chronically ill, no respiratory distress SKIN: Pallor, warm HEENT: pale palpebral conjunctivae, no ptosis, dry buccal mucosa, nasal cannula in place NECK : Supple, no tenderness CHEST : Decreased breath sounds, no tenderness HEART :RRR, no obvious murmurs ABDOMEN: Some distention, nontender EXTREMITIES :no LE swelling/no LE tenderness, no other conspicuous deformities noted NEUROLOGIC : Obtunded, no facial asymmetry, gait and stance not assessed Results & Data Results & Data Vital Signs (Past 12 Hours) Vital Signs Temp Pulse Pulse Resp BP Pulse Ox O2 Del Method 02/27/23 16:00 36.7 C 71 20 140/75 93 Oxymask 02/27/23 12:14 36.6 C 69 22 136/78 95 Oxymask 02/27/23 08:46 74 02/27/23 08:46 Oxymask 02/27/23 08:11 36.6 C 66 20 125/78 96 Oxymask 02/27/23 06:01 75 14 93 Nasal Cannula 02/27/23 05:40 72 02/27/23 05:40 Nasal Cannula 02/27/23 05:21 36.7 C 86 16 124/80 91 Nasal Cannula 02/27/23 04:18 74 94 Nasal Cannula O2 Flow Rate 02/27/23 16:00 6 02/27/23 12:14 6 02/27/23 08:46 02/27/23 08:46 6 02/27/23 08:11 6 02/27/23 06:01 4 02/27/23 05:40 02/27/23 05:40 5 02/27/23 05:21 5 02/27/23 04:18 4
--- NOTE | 2023-02-27 16:16 | Communication Note ---
Date of Service: February 27, 2023 Patient seen and examined at bedside. His son and were also at bedside. He is lethargic; nonresponsive to verbal stimuli. Does not appear to be agitated. Constitutional: Lethargic; unresponsive to verbal stimuli. Not agitated. Respiratory: Upper airway sound conducted. Cardiovascular: RRR, no murmur, no edema Vessels: no JVD or carotid bruit Chest: normal inspection of chest Abdomen: normal bowel sounds, soft, nontender, no hepatosplenomegaly Musculoskeletal: no cyanosis or clubbing, extremities motor strength 5/5 Skin: no rashes, warm and dry normal turgor Neurologic: PERRL, EOMI, accommodation nl, no face palsy, no dysarthria CN's II- XI intact bilaterally and moves all extremities Psychiatric: Lethargic; unresponsive to verbal stimuli. Not agitated. Assessment/plan 78-year-old male with history of dementia on hospice care brought to the hospital due to increased confusion and dehydration. Encephalopathymultifactorial, likely due to opioids, hyponatremia possible sepsis Hypernatremiacontinue on D5 at 100 cc/h. Sodium appropriately been corrected. Possible sepsiscontinue on cefepime for now. Follow-up on blood culture Elevated troponin of undetermined significance in setting of dehydrationcontinue to monitor. Goals of care; patient daughter who is a RN works in the [facility] and rehab. She wants him to be discharged there. Will obtain PT OT eval. Case management on board.
[2023-02-27] MEDS: SODIUM CHLOR 7% 4 ML NEB NEB SCH (19:00)
[2023-02-27] MEDS: ALBUT/IPRATROP 3MG/0.5MG NEB 3 ML VIAL NEB SCH (19:00)
--- NOTE | 2023-02-27 20:59 | Palliative Care Consultation ---
Date of Consultation February 27, 2023 Assessment & Plan (1) Palliative care by specialist: (2) Advanced care planning/counseling discussion: Recommend family meeting with care mgt, primary team, pall med + all family members felt to be necessary per . The reason for this recommendation is because there appear to be numerous reports to provider teams about feeling she was not told of pt placement and that her wishes were not followed, etc. In discussion with nursing today I was informed pt family stated they want him to go to their preferred SNF for comfort care though earlier report from family was they want him to go to this same SNF for rehab and "to get better." There seems to be unclear goals among all family members and this needs to be addressed in an open forum with all relevant parties present to assure we are all hearing and understanding the information in the right manner. Scheduling of meeting deferred to CM and primary team since they will need to attend. (3) Dementia with behavioral disturbance: (4) Advanced dementia: (5) Failure to thrive in adult: Plan Counts include 234 beds at the [facility] as noted above Thank you for allowing us to participate in the ongoing care of this patient. Please don't hesitate to call or page with any additional concerns. Dr. Adela Colon DNP Director, Palliative Care History of Present Illness Reason for Consultation: Re-Discuss goals of care Requesting Physician: oconer Attending Physician: Telly Narvaez MD History of Present Illness 78yo male w/adv dementia, declining oral intake, dc to SNF for end stage dementia/comfort care at SNF. He is readmitted this 3rd time 24hr after dc because reportedly did not approve dc to the [facility] & wants another facility Admitting notes indicate dtr reporting very disappointed with SNF placement and that she () "was never informed pt was going to [facility], because she wanted pt to go to snf where dtr worked." this is pt's third admission within 2 weeks: Palliative Med was asked to see pt last week during the second admission during which time stated she could not care for pt at home/did not have enough caregiver support/needed placement/agreed to comfort care (please see my very detailed family meeting documented in the consult note) Palliative Medicine is consulted again to re-discuss goals. In review of prior admission notes, care mgt notes indicate discussion with re dc to [facility] & her agreement. the initial admission resulted in dc home bc family refused placement though it was a bed at [facility] he was offered then as well. he represented in <24hr for readmission from home with family stating they couldn't care for him & now wanted placement. care mgt then contacted [facility] again since that bed offer was still open. Given that care mgt had discussion(s) w/ re [facility] & dc there for comfort & because there may be some communication and/or information processing/conveyance issues between family as well, I recommend a multidisciplinary family meeting with pt , dtr, care mgt, primary team & myself. I defer scheduling of that meeting to care mgt and primary team. Mornings through early afternoon work best for my schedule this week. A full eval will be done tomorrow; this note is for purposes of information clarification. Pt was not seen, no charge submitted. Thank you for allowing us to participate in the ongoing care of this patient. Please don't hesitate to call or page with any additional concerns. Dr. Adela Colon DNP Director, Palliative Care Allergies Allergy/AdvReac Type Severity Reaction Status Date / Time benzocaine Allergy Severe SLOUGHING Verified 02/26/23 23:38 OF SKIN clindamycin Allergy Intermediate RASH Verified 02/26/23 23:38 clobetasol Allergy Intermediate ITCHING Verified 02/26/23 23:38 cyanocobalamin (vitamin B12) Allergy Intermediate Rash Verified 02/26/23 23:38 doxycycline Allergy Intermediate RASH Verified 02/26/23 23:38 Penicillins Allergy Intermediate HIVES Verified 02/26/23 23:38 phenethylamine Allergy Intermediate Itching Verified 02/26/23 23:38 povidone-iodine Allergy Intermediate Hives Verified 02/26/23 23:38 [From Betadine] soap [From Betadine] Allergy Intermediate Hives Verified 02/26/23 23:38 tea tree Allergy Intermediate ITCHING Verified 02/26/23 23:38 lorazepam [From Ativan] AdvReac Mild Confusion Verified 02/26/23 23:38 Home Medications Medication Instructions Recorded Confirmed Type docusate sodium 100 mg capsule 100 mg PO Q12H PRN Constipation 06/14/18 02/26/23 History famotidine 20 mg tablet 20 mg PO BID 06/14/18 02/26/23 History metoprolol succinate 25 mg 25 mg PO BID 06/14/18 02/26/23 History tablet,extended release 24 hr oxybutynin chloride 5 mg tablet 5 mg PO BID 06/14/18 02/26/23 History albuterol sulfate 2.5 mg/3 mL 2.5 mg inhalation Q6H PRN 01/07/19 02/26/23 History (0.083 %) solution for nebulization Shortness Of Breath isosorbide mononitrate 30 mg 30 mg PO QAM 01/28/20 02/26/23 History tablet,extended release 24 hr valacyclovir 500 mg tablet 500 mg PO BID PRN RECURRENT EPISODE 09/18/20 02/26/23 History levothyroxine 75 mcg tablet 75 mcg PO QAM 09/09/21 02/26/23 History (Synthroid) allopurinol 300 mg tablet 300 mg PO PM 12/04/22 02/26/23 History pantoprazole 40 mg tablet,delayed 40 mg PO BID #60 tabs 01/14/23 02/26/23 Rx release arformoterol 15 mcg/2 mL solution 2 ml inhalation BID 02/10/23 02/26/23 History for nebulization budesonide 0.5 mg/2 mL suspension 0.25 mg inhalation BID 02/10/23 02/26/23 History for nebulization calcium carbonate 200 mg calcium 400 mg PO BID PRN Acid Reflux 02/10/23 02/26/23 History (500 mg) chewable tablet (Tums) triamcinolone acetonide 0.1 % 1 applic topical BID PRN flare up 02/10/23 02/26/23 History topical cream haloperidol lactate 2 mg/mL oral 2 mg PO Q4H PRN agitation 30 days 02/25/23 02/26/23 Rx concentrate #15 mL quetiapine 25 mg tablet 25 mg PO BID 30 days #60 tabs 02/25/23 02/26/23 Rx acetaminophen 325 mg tablet 650 mg PO Q6H PRN TEMP/PAIN 02/26/23 02/26/23 History (Tylenol) morphine concentrate 100 mg/5 mL 5 mg PO Q3H PRN Pain 02/26/23 02/26/23 History (20 mg/mL) oral solution morphine concentrate 100 mg/5 mL 5 mg PO Q6H 02/26/23 02/26/23 History (20 mg/mL) oral solution olanzapine 5 mg disintegrating 5 mg PO HS 02/26/23 02/26/23 History tablet Patient History Medical History (Updated 02/28/23 @ 12:37 by Adela Colon DNP) Advanced care planning/counseling discussion Agitation due to dementia Anxiety Aortic aneurysm stable 3cm; pcp monitors Barretts esophagus Blood clotting disorder pt unable to verify Chronic anemia Chronic back pain Chronic kidney disease, stage 3 COPD (chronic obstructive pulmonary disease) inhalers and nebulizers daily Coronary artery disease Dementia with behavioral disturbance Dementia without behavioral disturbance Diverticular disease GERD (gastroesophageal reflux disease) Gout [place] filter in place Hearing deficit Hyperlipidemia Hypertension Idiopathic neuropathy Myocardial Infarction 2016--follows with Dr. Casanova Need for comfort care Neuropathy Nocturnal hypoxemia On home oxygen therapy 2.5L N/C at Osteoarthritis Palliative care by specialist Jose Alejandro yangian Prostate cancer sx Recurrent genital herpes simplex (Unknown) Sciatica Sleep apnea oxygen at night Temporomandibular joint disorder Surgical History History of arthroscopic knee surgery History of bilateral cataract extraction History of cardiac cath x5--last 2018 History of colonoscopy History of esophagogastroduodenoscopy (EGD) History of heart artery stent multiple--last 20182 to restenosis History of hernia repair epigastric History of left shoulder replacement History of lumbar surgery History of mandibular surgery tmj repair History of prostate biopsy malignant History of prostatectomy History of right inguinal hernia repair History of right shoulder replacement History of tooth extraction all teeth removed Status post correction of deviated nasal septum Status post total hip replacement, bilateral Family History Other Family history not known due to adoption Social History Smoking Status: Unknown if ever smoked Tobacco Type: Cigarettes Hx Alcohol Use: No Hx Substance Use: No Preferred Language: Welsh Communication Ability: Unable Communication Ability Comment: unable to assess Supervisor Inventory Merchandising Required: No Beliefs That Will Affect Care: None marital status: Current Living Situation: Long Term Current Living Situation Comment: lives with and son current occupational status: retired How many Children do You have: 4 Other Information That Helps Us Care for You: No Feels Safe at Home: Yes Safety Concerns: Feels Safe At This Time Assistive Devices: Cane and Wheelchair Review of Systems Review of Systems: Unobtainable due to cognitive status Physical Exam Physical Exam: supine in bed, slightly restless, picking at linens unable to follow commands opens eyes to voice. does not answer questions resp effort WAL, slightly increased effort few scatt rhonchi, no wheeze mild JVD, +s1s2 abd distended, non tender, BS+ confused at baseline skin pale, warm Results & Data Vital Signs (Past 12 Hours) Vital Signs Temp Pulse Pulse Resp BP Pulse Ox O2 Del Method 02/27/23 19:32 36.8 C 76 22 147/92 H 91 Nasal Cannula 02/27/23 17:16 75 02/27/23 16:00 36.7 C 71 20 140/75 93 Oxymask 02/27/23 12:14 36.6 C 69 22 136/78 95 Oxymask 02/27/23 08:46 74 02/27/23 08:46 Oxymask O2 Flow Rate 02/27/23 19:32 6 02/27/23 17:16 02/27/23 16:00 6 02/27/23 12:14 6 02/27/23 08:46 02/27/23 08:46 6 Laboratory Results data reviewed Diagnostic Findings data reviewed PG Care Time/CCT Total # of Minutes Spent Total Time Spent: 60 Total Time Spent with Patient: Total time spent is greater than 50% in coordination of care (as documented) at patient's floor/unit and/or counseling patient: [place] [address] IN/OBS CONSULT LVL 4,60M Patient Type New History Comprehensive Exam Detailed Medical Decision Making Moderate Complexity Diagnoses Palliative care by specialist Z51.5 Advanced care planning/counseling discussion Z71.89 Dementia with behavioral disturbance F03.918 Advanced dementia F03.C0 Failure to thrive in adult R62.7
[2023-02-27] MEDS: allopurinoL 300 MG TAB PO SCH (21:14)
--- NOTE | 2023-02-27 21:25 | Discharge Summary ---
Date of Service February 25, 2023--date of discharge 02/25/2023 (for admission date of 02/21/2023) Admission HPI Per Admitting Provider This is a 78yo M with a PMH of CAD s/p PCI, stent, HTN, COPD, bronchiectasis, CKD III-IV, GERD, Sepulveda's esophagus, neuropathy, dementia, SVT versus paroxys mal atrial fibrillation, RBBB, and other medical problems who returns to ED due to medication non-compliance and family's inability to continue caring for patient at home. Patient was discharged home yesterday and other recommended for placement, patient elected to bring patient home to care for him there. Was discharged home on cefdinir 300 mg p.o. twice daily for 2 additional days to complete UTI treatment course. During previous admission, had some somnolence that was thought to be secondary to Seroquel dose, which was decreased to 12.5 p.o. twice daily. History obtained from and son at bedside. Since discharge home, patient has remained lethargic and has been refusing to eat, drink or take medications. They have had significant difficulty moving him and he grimaces in pain although unable to elicit much meaningful history from him due to dementia. States he has had chronic abdominal pain prior to admission. They do not feel they can care for him anymore. He has been screaming, swinging and spitting on staff in the ED. Was given IM Zyprexa 5 mg x 1 and is now resting peacefully. ROS unobtainable due to reduced consciousness. Principal Diagnosis Failure to thrive Acute renal failure Hypernatremia Goals of care counseling/discussion Comfort measures only Advanced dementia Discharge Exam Patient was seen on the day of discharge 02/25/2023. His and son were present at bedside Patient is cachetic, appears older than stated age, difficult to arouse but appe ars comfortable with no labored breathing. Discharge Data Allergies Allergy/AdvReac Type Severity Reaction Status Date / Time benzocaine Allergy Severe SLOUGHING Verified 02/26/23 23:38 OF SKIN clindamycin Allergy Intermediate RASH Verified 02/26/23 23:38 clobetasol Allergy Intermediate ITCHING Verified 02/26/23 23:38 cyanocobalamin (vitamin B12) Allergy Intermediate Rash Verified 02/26/23 23:38 doxycycline Allergy Intermediate RASH Verified 02/26/23 23:38 Penicillins Allergy Intermediate HIVES Verified 02/26/23 23:38 phenethylamine Allergy Intermediate Itching Verified 02/26/23 23:38 povidone-iodine Allergy Intermediate Hives Verified 02/26/23 23:38 [From Betadine] soap [From Betadine] Allergy Intermediate Hives Verified 02/26/23 23:38 tea tree Allergy Intermediate ITCHING Verified 02/26/23 23:38 lorazepam [From Ativan] AdvReac Mild Confusion Verified 02/26/23 23:38 Consultations 02/27/23 01:26 ED Decision to Admit Stat 02/27/23 06:48 Consult Palliative Care Routine Ordered Studies 02/26/23 21:58 CT abd pelvis wo con Stat CT head/brain wo con Stat Hospital Course (1) Failure to thrive in adult: (2) HERNANDEZ (acute kidney injury): (3) Advanced dementia: (4) Goals of care, counseling/discussion: (5) Comfort measures only status: Plan Mr Moody Lorenzo is a 78 year old man with a PMH of CAD s/p PCI, stent, HTN, COPD, bronchiectasis, CKD III-IV, GERD, Sepulveda's esophagus, neuropathy, dementia, SVT versus paroxysmal atrial fibrillation, RBBB, and other medical problems who returns to ED 02/21 after being discharged the day before due to family inability to care for him at home. Patient was recently admitted here from 02/10-02/20/2023 for confusion, urinary tract infection and dehydration. During that hospitalization, it was recommended he be discharged to SNF but his family declined and they brought him home. Within 1 day of being home, they sent him back to the ER due to being unable to care for him. He was refusing medications and food/drink (as he had been intermittently while in the hospital). Upon presentation on 02/21 he was noted to be combative/agitated as well as dehydrated and in HERNANDEZ. He received zyprexa in ER, IV fluids and essential medications switched to IV. By the next day, he was more awake and alert but still only agreed to take half of his medications. He continued to have intermittent periods of agitation, refusal of medications and food. With his dementia and failure to thrive, palliative care was consulted. After meeting with his , he was made comfort measures and hospice was arranged at [facility] and he was discharged there. Total Time Total Time Spent Total Time Spent (In Minutes): 40 Discharge Plan Discharge Items Patient Disposition: Hospice - Medical Facility Reason For Visit: ENECEPHALOPATHY Discharge Diagnosis: Failure to thrive Acute renal failure Hypernatremia Goals of care counseling/discussion Comfort measures only Advanced dementia Condition on Discharge: Fair Activity: Resume your previous activity Non-emergency contact: Primary Care Provider Follow-up/Referrals: Jacob Jones MD [Primary Care Provider] - Stand-Alone Forms: My [facility] Medications and DC Order Prescriptions: No Action famotidine 20 mg tablet 20 mg PO BID docusate sodium 100 mg Capsule 100 mg PO Q12H PRN (Reason: Constipation) metoprolol succinate 25 mg tablet extended release 24 hr 25 mg PO BID oxybutynin chloride 5 mg tablet 5 mg PO BID albuterol sulfate 2.5 mg /3 mL (0.083 %) Solution For Nebulization 2.5 mg INHALATION Q6H PRN (Reason: Shortness Of Breath) isosorbide mononitrate 30 mg tablet extended release 24 hr 30 mg PO QAM valacyclovir 500 mg tablet 500 mg PO BID PRN (Reason: RECURRENT EPISODE) triamcinolone acetonide 0.1 % Cream 1 applic TOPICAL BID PRN (Reason: flare up) calcium carbonate [Tums] 200 mg calcium (500 mg) Tablet,Chewable 400 mg PO BID PRN (Reason: Acid Reflux) budesonide 0.5 mg/2 mL Suspension For Nebulization 0.25 mg INHALATION BID Rx Instructions: rinse mouth arformoterol 15 mcg/2 mL Solution For Nebulization 2 ml INHALATION BID quetiapine 25 mg Tablet 25 mg PO BID 30 Days Qty: 60 0RF haloperidol lactate 2 mg/mL Concentrate 2 mg PO Q4H PRN (Reason: agitation) 30 Days Qty: 15 0RF acetaminophen [Tylenol] 325 mg Tablet 650 mg PO Q6H PRN (Reason: TEMP/PAIN) morphine concentrate 100 mg/5 mL (20 mg/mL) Solution 5 mg PO Q3H PRN (Reason: Pain) morphine concentrate 100 mg/5 mL (20 mg/mL) solution 5 mg PO Q6H Rx Instructions: TO START 02/26/23 @ 1800 olanzapine 5 mg tablet,disintegrating 5 mg PO HS levothyroxine [Synthroid] 75 mcg Tablet 75 mcg PO QAM allopurinol 300 mg tablet 300 mg PO PM pantoprazole 40 mg Tablet,Delayed Release (Dr/Ec) 40 mg PO BID Qty: 60 0RF Admission Data Admit Date/Time: 02/27/23 03:55 Attending Provider: Telly Narvaez Admit Provider: Alonso Mccarthy Primary Care Provider: Jacob Jones Other Providers: Alonso Mccarthy ; Alfred Lenz ; Manisha Wright ; Adela Colon
[2023-02-27] MEDS: OLANZapine ZYDIS 5 MG ORALLY DIS. TAB PO SCH (21:26)
[2023-02-28] MEDS ORDERED: cefTRIAXone SODIUM 2,000 MG in DEXTROSE 5% 50 ML IV SCH (02:00)
[2023-02-28] MEDS: LEVOTHYROXINE SODIUM 75 MCG TABLET PO SCH (05:34)
[2023-02-28] MEDS: DEXTROSE 5% 1,000 ML IV SCH ×2 (05:35→15:33)
[2023-02-28] MEDS: HEPARIN SOD 5,000 UNIT/0.5 ML VIAL SQ SCH ×3 (05:35→20:46)
[2023-02-28] MEDS: CEFEPIME 2,000 MG in SYRINGE 0 ML IV SCH ×2 (06:28→18:25)
[2023-02-28 06:34] LABS: Basophils # (auto) 0.04 K/uL (0-0.2); Basophils % (auto) 0.4 %; Eosinophils # (auto) 0.15 K/uL (0-0.50); Eosinophils % (auto) 1.6 %; Hematocrit (blood only) 32.2 % (42.0-52.0); Hemoglobin 10.1 g/dl (14.0-18.0); Immature Granulocytes # (auto) 0.16 K/uL (0.01-0.20); Immature Granulocytes % (auto) 1.7 %; Lymphocytes # (auto) 1.06 K/uL (1.2-3.4); Mean Corpuscular Hemoglobin 33.9 pg (25.0-34.0); Mean Corpuscular Hgb Conc 31.4 g/dL (32.0-36.0); Mean Corpuscular Volume 108.1 fL (80.0-100.0); Mean Platelet Volume 11.1 fL (9.4-12.4); Monocytes # (auto) 1.06 K/uL (0.11-0.59); Neutrophils % (auto) 74.3 %; Platelet Count 228 K/uL (130-400); RDW Coefficient of Variation 14.8 % (11.5-14.5); RDW Standard Deviation 59.2 fL (36.4-46.3); Red Blood Count 2.98 M/uL (4.70-6.10); White Blood Count 9.67 K/ul (4.8-10.8)
[2023-02-28 06:39] LABS: BUN Creatinine Ratio 17.1 (10-20); Calcium 8.9 mg/dl (8.6-10.3); Creatinine Clr Calc Pharmacy 34.7 ml/min; Est GFR (African American) 40.6 ml/min; Potassium 3.8 mmol/L (3.5-5.1)
[2023-02-28] MEDS: SODIUM CHLOR 7% 4 ML NEB NEB SCH (07:47)
[2023-02-28] MEDS: ALBUT/IPRATROP 3MG/0.5MG NEB 3 ML VIAL NEB SCH (07:47)
[2023-02-28] MEDS: ISOSORBIDE MONO EXTENDED REL 30 MG TABCR PO SCH (09:00)
[2023-02-28] MEDS: PANTOprazole 40 MG TAB PO SCH ×2 (09:01→20:44)
[2023-02-28] MEDS: METOPROLOL SUCC 25MG EXT REL TAB PO SCH ×2 (09:01→20:44)
[2023-02-28] MEDS: FAMOTIDINE 20 MG TAB PO SCH ×2 (09:02→20:44)
[2023-02-28] MEDS ORDERED: ALBUT/IPRATROP 3MG/0.5MG NEB 3 ML VIAL NEB PRN (09:50)
[2023-02-28] MEDS ORDERED: SODIUM CHLOR 7% 4 ML NEB NEB PRN (09:51)
[2023-02-28] MEDS: ACETAMINOPHEN 1,000 MG/100 ML VIAL IV PRN (15:45)
--- NOTE | 2023-02-28 16:34 | Communication Note ---
Date of Service: February 28, 2023 Palliative Medicine Brief Note I reviewed case with Dr Narvaez who in discussion with family was advised they do not want hospice or comfort care. They want him to go to SNF where dtr works, [place], and have rehab because they feel he can get better. I will sign off as pt has no acute inpatient pall med needs and the GOC are clarified as noted above. Thank you for allowing us to participate in the ongoing care of this patient. Please don't hesitate to call or page with any additional concerns. Dr. Adela Colon DNP Director, Palliative Care
--- NOTE | 2023-02-28 17:31 | Hospitalist Progress Note ---
Date of Service February 28, 2023 Assessment & Plan (1) Advanced dementia: (2) Acute hypernatremia: (3) Encephalopathy: (4) Agitation due to dementia: Plan: Encephalopathy -multifactorial (opioids, acute hyponatremia, possible UTI) Past medical history of advanced dementia with behavioral disturbances. Multiple admission recently in the last 2 months. Patient was discharged to rehab on comfort care measures on February 24 Hospice was revoked and patient is brought to the hospital with altered mental status on February 26 Labs reviewed; sodium downtrending with IV hydration. Currently 147 Continue D5 at 100 cc/h for hypernatremia Continue on cefepime; urine culture shows pinpoint growth. Blood culture ordered; will follow up Avoid narcotics Hold other sedatives for now. If patient gets agitated; will restart Zyprexa 2.5 IM as needed 2) Barretts esophagus: Continue PPI, H2 sabi 3)CAD (coronary artery disease): Plan: S/p PCI, stent Continue aspirin, Plavix, isosorbide, metoprolol succinate, atorvastatin 4)Hypertension: Plan: Continue metoprolol succinate 5)Chronic kidney disease: Plan: CKD III-IV Creatinine around baseline. Monitor renal functions, avoid nephrotoxic agents when possible 6) COPD (chronic obstructive pulmonary disease): Plan: History COPD/bronchiectasis Continue home inhalers Albuterol as needed 7) Chronic anemia: Plan: Hemoglobin same as baseline. Monitor H&H 8)Hypothyroid: Plan: Continue levothyroxine 9)Gout: Plan: Continue allopurinol 10) (paroxysmal atrial fibrillation): Plan: History paroxysmal atrial fibrillation versus SVT seen on prior potline monitor Continue metoprolol succinate DVT Prophylaxis heparin DNR/DNI Discussed with patient's son and at bedside. Answered questions/queries. Disposition;patient daughter is a RN works in the [facility] and rehab. She wants him to be discharged there. Will obtain PT OT janeth. Case management on board. Admission and Anticipated Discharge Date Admission Date: February 27, 2023 Subjective Patient seen and examined at bedside He is a still lethargic; opens his eyes intermittently. Review of Systems Review of Systems: Unobtainable due to cognitive status Physical Exam Physical Exam: Constitutional: Lethargic; opens eyes intermittently. Not in any distress Respiratory: Upper airway conducted. Cardiovascular: RRR, no murmur, no edema Vessels: no JVD or carotid bruit Chest: normal inspection of chest Abdomen: Soft, nontender. Musculoskeletal: no cyanosis or clubbing, Skin: no rashes, warm and dry normal turgor Neurologic: Lethargic; moves all extremities Results & Data Results & Data Vital Signs (Past 12 Hours) Vital Signs Temp Pulse Pulse Resp BP Pulse Ox O2 Del Method 02/28/23 15:34 84 02/28/23 08:31 36.8 C 76 18 135/95 95 Oxymask 02/28/23 07:50 75 02/28/23 07:46 Oxymask O2 Flow Rate 02/28/23 15:34 02/28/23 08:31 4.0 02/28/23 07:50 02/28/23 07:46 Laboratory Results Laboratory Results WBC 9.67 K/ul (4.8-10.8) 02/28/23 05:50 RBC 2.98 M/uL (4.70-6.10) L 02/28/23 05:50 Hgb 10.1 g/dl (14.0-18.0) L 02/28/23 05:50 Hct 32.2 % (42.0-52.0) L 02/28/23 05:50 MCV 108.1 fL (80.0-100.0) H 02/28/23 05:50 MCH 33.9 pg (25.0-34.0) 02/28/23 05:50 MCHC 31.4 g/dL (32.0-36.0) L 02/28/23 05:50 RDW Std Deviation 59.2 fL (36.4-46.3) H 02/28/23 05:50 RDW Coeff of Zoë 14.8 % (11.5-14.5) H 02/28/23 05:50 Plt Count 228 K/uL (130-400) 02/28/23 05:50 MPV 11.1 fL (9.4-12.4) 02/28/23 05:50 Immature Gran % (Auto) 1.7 % 02/28/23 05:50 Neut % (Auto) 74.3 % 02/28/23 05:50 Lymph % (Auto) 11.0 % 02/28/23 05:50 [place] % (Auto) 11.0 % 02/28/23 05:50 Eos % (Auto) 1.6 % 02/28/23 05:50 Baso % (Auto) 0.4 % 02/28/23 05:50 Neut # (Auto) 7.20 K/uL (1.40-6.50) H 02/28/23 05:50 Lymph # (Auto) 1.06 K/uL (1.2-3.4) L 02/28/23 05:50 [place] # (Auto) 1.06 K/uL (0.11-0.59) H 02/28/23 05:50 Eos # (Auto) 0.15 K/uL (0-0.50) 02/28/23 05:50 Baso # (Auto) 0.04 K/uL (0-0.2) 02/28/23 05:50 Immature Gran # (Auto) 0.16 K/uL (0.01-0.20) 02/28/23 05:50 PT 13.3 Seconds (9.0-12.0) H 02/26/23 22:02 INR 1.2 (0.9-1.1) H 02/26/23 22:02 ABG pH 7.37 (7.35-7.45) 02/27/23 06:52 ABG pCO2 40 mmHg (35-46) 02/27/23 06:52 ABG pO2 79 mmHg (80-95) L 02/27/23 06:52 ABG HCO3 23 mmol/L (19-24) 02/27/23 06:52 ABG O2 Saturation 96.6 % (90-95) H 02/27/23 06:52 ABG Base Excess -2.0 mEq/L (-9-1.8) 02/27/23 06:52 Justin Test Pos (Pos) 02/27/23 06:52 Oxygen Given 6L 02/27/23 06:52 Sodium 147 mmol/L (136-145) H 02/28/23 05:50 Potassium 3.8 mmol/L (3.5-5.1) 02/28/23 05:50 Chloride 114 mmol/L (98-107) H 02/28/23 05:50 Carbon Dioxide 23 mmol/L (21-32) 02/28/23 05:50 Anion Gap 10 (3-11) 02/28/23 05:50 BUN 31 mg/dl (6-23) H 02/28/23 05:50 Creatinine 1.81 mg/dl (0.6-1.4) H 02/28/23 05:50 Est Cr Clr Drug Dosing 34.7 ml/min 02/28/23 05:50 Est GFR ( Amer) 40.6 ml/min 02/28/23 05:50 Est GFR (Non-Af Amer) 35.0 ml/min 02/28/23 05:50 BUN/Creatinine Ratio 17.1 (10-20) 02/28/23 05:50 Glucose 98 mg/dl (70-99(Fasting)) 02/28/23 05:50 POC Glucose 92 mg/dl (70-99) 02/26/23 22:22 Lactate 1.8 mmol/L (0.4-2.0) 02/26/23 22:02 Calcium 8.9 mg/dl (8.6-10.3) 02/28/23 05:50 Magnesium 1.9 mg/dl (1.7-2.4) 02/26/23 22:02 Total Bilirubin 1.0 mg/dl (0.2-1.0) 02/26/23 22:02 AST 62 U/L (13-39) H 02/26/23 22:02 ALT 59 U/L (7-52) H 02/26/23 22:02 Alkaline Phosphatase 99 U/L (34-104) 02/26/23 22:02 Ammonia 18.0 umol/L (18-72) 02/27/23 06:51 Total Creatine Kinase 92 U/L (30-223) 02/26/23 22:02 Troponin I High Sens 72.3 pg/ml (0-20) H* D 02/27/23 06:44 Total Protein 7.1 gm/dl (6.0-8.3) 02/26/23 22:02 Albumin 3.3 gm/dl (3.4-5.0) L 02/26/23 22:02 Globulin 3.8 gm/dl (2.5-4.0) 02/26/23 22:02 Albumin/Globulin Ratio 0.9 (0.9-2) 02/26/23 22:02 TSH 10.153 uIu/ml (0.300-4.500) H 02/26/23 22:02 Free T4 1.04 ng/dl (0.61-1.60) 02/26/23 22:02 Urine Color Yellow 02/26/23 Unknown Urine Appearance Clear (Clear) 02/26/23 Unknown Urine pH 5.0 (4.5-7.5) 02/26/23 Unknown Ur Specific [place] >= 1.030 (1.000-1.030) 02/26/23 Unknown Urine Protein 1+ (Negative) H 02/26/23 Unknown Urine Glucose (UA) Negative (Negative) 02/26/23 Unknown Urine Ketones Negative (Negative) 02/26/23 Unknown Urine Blood 3+ (Negative) H 02/26/23 Unknown Urine Nitrite Negative (Negative) 02/26/23 Unknown Urine Bilirubin 1+ (Negative) H 02/26/23 Unknown Urine Urobilinogen Negative (Negative) 02/26/23 Unknown Ur Leukocyte Esterase 1+ (Negative) H 02/26/23 Unknown Urine RBC 0-4 /hpf (0-4) 02/26/23 Unknown Urine WBC 10-30 /hpf (0-5) H 02/26/23 Unknown Ur Epithelial Cells 0-5 /lpf (0-5) 02/26/23 Unknown Urine Bacteria 1+ (Negative) H 02/26/23 Unknown Urine Yeast Present (None Prsent) A 02/26/23 Unknown Nasal Screen MRSA (PCR) Negative (Negative) 02/27/23 06:04 SARS-CoV-2, RNA, NAAT NEGATIVE (NEGATIVE) 02/26/23 22:02 Impressions Abdomen/Pelvis CT 02/26/23 21:58 Exam(s): CT ABDOMEN + PELVIS Without Contrast EXAM: CT Abdomen and Pelvis Without Intravenous Contrast CLINICAL HISTORY: Reason for exam: mid abd pain, AMS. TECHNIQUE: Axial computed tomography images of the abdomen and pelvis without intravenous contrast. CTDI is 61.49 mGy and DLP is 1766.13 mGy-cm. Automated exposure control was utilized for the study. A dose lowering technique was utilized adhering to the principles of ALARA. COMPARISON: CT abdomen pelvis 02/10/2023 FINDINGS: Artifacts: Artifact within the pelvis. Lung bases: Atelectasis at the lung bases. Mediastinum: Hiatal hernia. ABDOMEN: Liver: Unremarkable. Gallbladder and bile ducts: No stones in the gallbladder. No inflammatory changes. Pancreas: Unremarkable. Spleen: Unremarkable. Adrenals: Unremarkable. Kidneys and ureters: No urolithiasis or obstructive uropathy. Stomach and bowel: Unremarkable. PELVIS: Appendix: No findings to suggest acute appendicitis. Bladder: Unremarkable. Reproductive: Unremarkable as visualized. ABDOMEN and PELVIS: Intraperitoneal space: No fluid collection or free air. Bones/joints: Subacute appearing L2 inferior endplate fracture. Bilateral hip arthroplasties. Unchanged cystic lesion within the left iliac wing. Soft tissues: Unremarkable. Vasculature: Abdominal aortic aneurysm measuring 3.5 cm. IVC filter within the IVC. Aortobiiliac atherosclerotic calcifications. Lymph nodes: Unremarkable. IMPRESSION: 1. No acute abnormality identified. 2. Abdominal aortic aneurysm measuring 3.5 cm. 3. Hiatal hernia. 4. Subacute appearing L2 inferior endplate fracture. No osseous retropulsion. Electronically signed by: Reza Glynn MD 02/27/23 01:[address] 02/26/23 21:58 Exam(s): CT HEAD Without Contrast EXAM: CT Head Without Intravenous Contrast CLINICAL HISTORY: Reason for exam: ams. TECHNIQUE: Axial computed tomography images of the head/brain without intravenous contrast. CTDI is 61.49 mGy and DLP is 1766.13 mGy-cm. Automated exposure control was utilized for the study. A dose lowering technique was utilized adhering to the principles of ALARA. COMPARISON: No relevant prior studies available. FINDINGS: Artifacts: Images are degraded by motion artifact. Brain: No hemorrhage, cerebral edema, or mass-effect. Mild parenchymal atrophy. Chronic microvascular ischemic changes. Ventricles: Unremarkable. Bones/joints: Unremarkable. No fracture. Soft tissues: Unremarkable. Sinuses: No acute sinusitis. Mastoid air cells: Partial right mastoid effusion. IMPRESSION: 1. No acute abnormality. 2. Chronic microvascular ischemic changes. 3. Partial right mastoid effusion. Electronically signed by: Reza Glynn MD 02/27/23 01:26 AM Chest X-Ray 02/27/23 05:45 XR chest 1V portable HISTORY: 78 years-old Male weakness acute weakness COMPARISON: 02/21/2023 TECHNIQUE: AP view of the chest FINDINGS: Cardiac silhouette is enlarged. Atherosclerosis of the aorta. No pneumothorax, large pleural effusion or overt pulmonary edema. Mild subsegmental bibasilar opacities. Degenerative changes of the spine. Bilateral shoulder arthroplasties. IMPRESSION: 1. Cardiomegaly without pulmonary edema. 2. Mild subsegmental bibasilar opacities favor atelectasis. ACT 112: Negative or not required by law. The above report was generated using voice recognition software. It may contain grammatical, syntax or spelling errors. Electronically signed by: Claudio Orourke M.D. 02/27/2023 8:45 AM
[2023-02-28] MEDS: OLANZapine ZYDIS 5 MG ORALLY DIS. TAB PO SCH (20:41)
[2023-02-28] MEDS: allopurinoL 300 MG TAB PO SCH (20:44)
[2023-03-01] MEDS: DEXTROSE 5% 1,000 ML IV SCH ×2 (01:02→11:09)
[2023-03-01] MEDS: HEPARIN SOD 5,000 UNIT/0.5 ML VIAL SQ SCH ×3 (05:34→23:10)
[2023-03-01] MEDS: LEVOTHYROXINE SODIUM 75 MCG TABLET PO SCH (05:36)
[2023-03-01] MEDS: CEFEPIME 2,000 MG in SYRINGE 0 ML IV SCH ×2 (06:01→19:35)
[2023-03-01 06:20] LABS: Basophils # (auto) 0.04 K/uL (0-0.2); Basophils % (auto) 0.5 %; Eosinophils # (auto) 0.14 K/uL (0-0.50); Eosinophils % (auto) 1.7 %; Hematocrit (blood only) 26.4 % (42.0-52.0); Hemoglobin 8.6 g/dl (14.0-18.0); Immature Granulocytes # (auto) 0.15 K/uL (0.01-0.20); Immature Granulocytes % (auto) 1.8 %; Lymphocytes # (auto) 1.01 K/uL (1.2-3.4); Lymphocytes % (auto) 12.2 %; Mean Corpuscular Hemoglobin 33.6 pg (25.0-34.0); Mean Corpuscular Hgb Conc 32.6 g/dL (32.0-36.0); Mean Corpuscular Volume 103.1 fL (80.0-100.0); Mean Platelet Volume 11.2 fL (9.4-12.4); Monocytes # (auto) 0.91 K/uL (0.11-0.59); Neutrophils # (auto) 6.05 K/uL (1.40-6.50); Neutrophils % (auto) 72.8 %; Platelet Count 184 K/uL (130-400); RDW Coefficient of Variation 14.5 % (11.5-14.5); RDW Standard Deviation 54.6 fL (36.4-46.3); Red Blood Count 2.56 M/uL (4.70-6.10)
[2023-03-01 06:42] LABS: Calcium 8.5 mg/dl (8.6-10.3); Potassium 3.3 mmol/L (3.5-5.1)
[2023-03-01 06:48] LABS: BUN Creatinine Ratio 15.3 (10-20); Creatinine Clr Calc Pharmacy 33.3 ml/min; Est GFR (African American) 38.5 ml/min; Est GFR (Non-African American) 33.2 ml/min
[2023-03-01] MEDS: PANTOprazole 40 MG TAB PO SCH ×2 (09:09→22:14)
[2023-03-01] MEDS: METOPROLOL SUCC 25MG EXT REL TAB PO SCH ×2 (09:09→22:14)
[2023-03-01] MEDS: ISOSORBIDE MONO EXTENDED REL 30 MG TABCR PO SCH (09:09)
[2023-03-01] MEDS: FAMOTIDINE 20 MG TAB PO SCH ×2 (09:09→22:13)
[2023-03-01] MEDS ORDERED: POTASSIUM CHLORIDE CRTAB 20 MEQ TABCR PO STA (10:23)
--- NOTE | 2023-03-01 13:53 | XRay Report ---
XR KUB/Abdomen 1 view CLINICAL HISTORY: abdominal pain TECHNIQUE: 1 view of the abdomen was obtained. Comparison: Comparison is made to abdomen radiograph 07/31/2014 FINDINGS: IVC filter is seen. Degenerative changes are seen in the visualized skeleton. Bilateral hip arthropl asties are seen with heterotrophic ossification. The bowel gas pattern is nonobstructive. Small stool burden is seen. Vascular calcifications are seen. IMPRESSION: Nonobstructive bowel gas pattern. ACT 112: Negative or not required by law. Electronically signed by: Vega Olson M.D. 03/01/2023 1:52 PM
--- NOTE | 2023-03-01 19:28 | Hospitalist Progress Note ---
Date of Service March 01, 2023 Assessment & Plan (1) Acute metabolic encephalopathy: (2) Acute hypernatremia: (3) Advanced dementia: (4) Agitation due to dementia: Plan: Acute metabolic encephalopathy likely secondary to hypernatremia in the setting of advanced dementia. As noted on previous reports her been multiple admissions in the last 2 months. He was recently discharged on comfort care measures with hospice on February 24. Hospice was revoked and he was brought back to the hospital with altered mental status. Just prior to discharge his sodium was 148 and 3 days later on admission it was 153. He is starting to improve with a return of his sodium into the normal range today. Sodium today is 140. Other contributing factors may be opiate use and a possible urinary tract infection. He continues on cefepime with culture revealing yeast not Pili albicans. Blood cultures are negative and he remains afebrile. Will stop antibiotics. Cont to avoid narcotics 2) Barretts esophagus: Continue PPI, H2 sabi 3)CAD (coronary artery disease): chronic, stable. S/p PCI, stent, continue aspirin, Plavix, isosorbide, metoprolol succinate, atorvastatin 4)Hypertension: chronic, at goal. Continue metoprolol succinate 5)Chronic kidney disease: CKD III, Creatinine around baseline. Monitor renal functions, avoid nephrotoxic agents when possible 6) COPD (chronic obstructive pulmonary disease): chronic, at goal, History COPD/bronchiectasis . Continue home inhalers, Albuterol as needed 7) Chronic anemia: stable, no bleeding. Hemoglobin same as baseline. Monitor H&H 8)Hypothyroid: chronic, at goal. Continue levothyroxine 9)Gout: chronic, stable. Continue allopurinol 10) (paroxysmal atrial fibrillation): History paroxysmal atrial fibrillation versus SVT seen on prior environmental monitoring specialist, Continue metoprolol succinate DVT Prophylaxis heparin DNR/DNI Disposition;patient daughter is a RN works in the [facility] [place] and rehab. She wants him to be discharged there. Will obtain PT OT eval. Case management on board to assist with transfer. [facility] Admission and Anticipated Discharge Date Admission Date: February 27, 2023 Subjective 78-year-old man admitted for encephalopathy. Hypernatremia was corrected with sodium 140 this morning after dextrose administration. Patient was minimally responsive but was opening his eyes and mumbling some words. Does not appear to be in any pain or distress but did report to me something about possible belly pain. KUB was performed revealing nonobstructive Bowel gas pattern. CT of the abdomen pelvis from admission was reviewed revealing no acute abnormality. Harris catheter was in place eliminating the possibility of urinary retention. Discussed the case with primary RN who states patient is a large aspiration risk and unable to tolerate p.o. As he began to wake up he was able to get in some lunch but has not eaten in several days. Review of Systems Review of Systems: All systems reviewed negative except as indicated above. Physical Exam Physical Exam: CONSTITUTIONAL: WNWD, vitals as above, generally appears lethargic. EYES: pupils are round and equal bilaterally, normal conjunctivae, no scleral icterus ENT: external ear and nose normal, oropharynx clear, MMM NECK: trachea midline RESPIRATORY: clear to auscultation bilaterally, no crackles, rales or wheezes, normal respiratory effort CARDIOVASCULAR: regular rate and rhythm, S1 and 2 heard without murmurs, gallops or rubs, no JVD, no peripheral edema CHEST: inspection of chest was normal GASTROINTESTINAL: soft, nontender, ND, no guarding : Harris in place MUSCULOSKELETAL: unable to cooperate with exam given confusion, however, no gross focal deficits were noted. head is normocephalic and atraumatic, SKIN: warm and dry NEUROLOGIC: CN 2-12 grossly intact, lethargic, speech intact but not making sense, no tremor. PSYCHIATRIC: lethargic. Results & Data Results & Data Vital Signs (Past 12 Hours) Vital Signs Temp Pulse Pulse Resp BP Pulse Ox O2 Del Method 03/01/23 17:46 71 03/01/23 15:37 36.7 C 68 18 152/90 H 95 Nasal Cannula 03/01/23 12:12 36.3 C L 59 L 18 125/75 95 Room Air 03/01/23 08:05 36.6 C 63 19 122/78 93 Nasal Cannula 03/01/23 07:50 73 03/01/23 07:50 Nasal Cannula O2 Flow Rate 03/01/23 17:46 03/01/23 15:37 4.0 03/01/23 12:12 03/01/23 08:05 4.0 03/01/23 07:50 03/01/23 07:50 4 Laboratory Results Short CBC 03/01/23 Range/Units 05:33 WBC 8.30 (4.8-10.8) K/ul Hgb 8.6 L (14.0-18.0) g/dl Hct 26.4 L (42.0-52.0) % Plt Count 184 (130-400) K/uL BMP 03/01/23 05:33 Sodium 140 Potassium 3.3 L Chloride 110 H Carbon Dioxide 22 BUN 29 H Creatinine 1.89 H Glucose 104 H Calcium 8.5 L Diagnostic Findings KUB X-Ray 03/01/23 11:52 XR KUB/Abdomen 1 view CLINICAL HISTORY: abdominal pain TECHNIQUE: 1 view of the abdomen was obtained. Comparison: Comparison is made to abdomen radiograph 07/31/2014 FINDINGS: IVC filter is seen. Degenerative changes are seen in the visualized skeleton. Bilateral hip arthroplasties are seen with heterotrophic ossification. The bowel gas pattern is nonobstructive. Small stool burden is seen. Vascular calcifications are seen. IMPRESSION: Nonobstructive bowel gas pattern. ACT 112: Negative or not required by law. Electronically signed by: Vega Olson M.D. 03/01/2023 1:52 PM Medications Administered Current Inpatient Medications Acetaminophen (Acetaminophen 325 Mg Tab) 650 mg PO Q6H PRN PRN Reason: TEMP/PAIN Stop: 03/29/23 04:37 Albuterol (Albut/Ipratrop 3mg/0.5mg Neb 3 Ml Vial) 3 ml NEB QIDR PRN; Protocol PRN Reason: Shortness Of Breath Or Wheezing Stop: 03/29/23 18:59 Allopurinol (Allopurinol 300 Mg Tab) 300 mg PO PM MANDY Stop: 03/29/23 20:59 Last Admin: 02/28/23 20:44 Dose: Not Given Famotidine (Famotidine 20 Mg Tab) 20 mg PO BID MANDY Stop: 03/29/23 08:59 Last Admin: 03/01/23 09:09 Dose: Not Given Heparin Sodium (Porcine) (Heparin Sod 5,000 Unit/0.5 Ml Vial) 5,000 units SQ Q8 MANDY Stop: 03/29/23 05:59 Last Admin: 03/01/23 14:03 Dose: 5,000 units Acetaminophen (Ofirmev) 1,000 mg in 100 mls @ 400 mls/hr IV Q8H PRN PRN Reason: fever/pain Stop: 03/02/23 04:00 Last Infusion: 02/28/23 16:13 Dose: Infused Promethazine HCl 6.25 mg/ (Sodium Chloride) 50.25 mls @ 201 mls/hr IV Q6H PRN PRN Reason: Nausea And Vomiting Stop: 03/29/23 04:00 Cefepime HCl 2,000 mg/ Syringe 20 mls @ 5 mls/min IV Q12H MANDY; Protocol Stop: 03/09/23 06:59 Last Admin: 03/01/23 06:01 Dose: 5 mls/min Dextrose (D5w) 1,000 mls @ 100 mls/hr IV .Q10H [facility] Stop: 03/29/23 07:59 Last Admin: 03/01/23 11:09 Dose: 100 mls/hr Isosorbide Mononitrate (Isosorbide [place] Extended Rel 30 Mg Tabcr) 30 mg PO QAM [facility] Stop: 03/29/23 08:59 Last Admin: 03/01/23 09:09 Dose: Not Given Levothyroxine Sodium (Levothyroxine Sodium 75 Mcg Tablet) 75 mcg PO DAILYBB [facility] Stop: 03/29/23 06:29 Last Admin: 03/01/23 05:36 Dose: Not Given Metoprolol Succinate (Metoprolol Succ 25mg Ext Rel Tab) 25 mg PO BID [facility] Stop: 03/29/23 08:59 Last Admin: 03/01/23 09:09 Dose: Not Given Olanzapine (Olanzapine Zydis 5 Mg Orally Dis. Tab) 5 mg PO HS [facility] Stop: 03/29/23 20:59 Last Admin: 02/28/23 20:41 Dose: 5 mg Oxybutynin Chloride (Oxybutynin Chloride 5 Mg Tab) 5 mg PO BID [facility] Stop: 03/29/23 08:59 Last Admin: 02/27/23 08:41 Dose: Not Given Pantoprazole Sodium (Pantoprazole 40 Mg Tab) 40 mg PO BID [facility] Stop: 03/29/23 08:59 Last Admin: 03/01/23 09:09 Dose: Not Given Quetiapine Fumarate (Quetiapine Fumarate 25 Mg Tablet) 25 mg PO BID [facility] Stop: 03/29/23 08:59 Last Admin: 02/27/23 08:41 Dose: Not Given Sodium Chloride (Sodium Chlor 7% 4 Ml Neb) 4 ml NEB BIDR PRN PRN Reason: Sputum induction Stop: 03/29/23 18:59
[2023-03-01] MEDS: allopurinoL 300 MG TAB PO SCH (22:13)
[2023-03-01] MEDS: OLANZapine ZYDIS 5 MG ORALLY DIS. TAB PO SCH (22:14)
[2023-03-02] MEDS: ACETAMINOPHEN 1,000 MG/100 ML VIAL IV PRN (00:31)
[2023-03-02] MEDS: DEXTROSE 5% 1,000 ML IV SCH ×2 (03:18→17:06)
[2023-03-02] MEDS: HEPARIN SOD 5,000 UNIT/0.5 ML VIAL SQ SCH ×3 (06:27→21:05)
[2023-03-02] MEDS: LEVOTHYROXINE SODIUM 75 MCG TABLET PO SCH (06:33)
[2023-03-02 06:43] LABS: Hematocrit (blood only) 29.3 % (42.0-52.0); Hemoglobin 9.7 g/dl (14.0-18.0); Mean Corpuscular Hemoglobin 33.9 pg (25.0-34.0); Mean Corpuscular Hgb Conc 33.1 g/dL (32.0-36.0); Mean Corpuscular Volume 102.4 fL (80.0-100.0); Mean Platelet Volume 11.8 fL (9.4-12.4); Platelet Count 202 K/uL (130-400); RDW Coefficient of Variation 14.5 % (11.5-14.5); Red Blood Count 2.86 M/uL (4.70-6.10); White Blood Count 28.94 K/ul (4.8-10.8)
[2023-03-02 06:53] LABS: BUN Creatinine Ratio 13.2 (10-20); Calcium 8.8 mg/dl (8.6-10.3); Creatinine Clr Calc Pharmacy 28.6 ml/min; Est GFR (African American) 32.1 ml/min; Est GFR (Non-African American) 27.7 ml/min; Magnesium 1.5 mg/dl (1.7-2.4); Phosphorus 2.6 mg/dl (2.5-4.9); Potassium 3.9 mmol/L (3.5-5.1)
--- NOTE | 2023-03-02 09:41 | Hospitalist Progress Note ---
Date of Service March 02, 2023 Assessment & Plan (1) Acute metabolic encephalopathy: (2) Acute hypernatremia: (3) Advanced dementia: (4) Agitation due to dementia: Plan: Acute metabolic encephalopathy likely secondary to hypernatremia in the setting of advanced dementia. As noted on previous reports her been multiple admissions in the last 2 months. He was recently discharged on comfort care measures with hospice on February 24. Hospice was revoked and he was brought back to the hospital with altered mental status. Just prior to discharge his sodium was 148 and 3 days later on admission it was 153. He is starting to improve with a return of his sodium into the normal range with sodium now 137. Other contributing factors may be opiate use and a possible urinary tract infection. Blood cultures are negative and he remains afebrile. Abx restarted today (Rocephin/flagyl) given elevated WBC, worsening lactic acidosis, reports of abdominal pain and new findings on abdominal CT. It is possible he may be developing ischemic gut, trapped ventral hernia or other concerning intra- abdominal process not seen on cat scan. However, he is not tachycardic and lactate has been elevated similar to this a few days ago. Will consult general surgery for recommendations, add IVF (noted decreased urine output today), trend lactate and repeat labwork in am. Recently treated for UT in a previous hospitalization, however, cont abx in case of developing sepsis. 2) Barretts esophagus: Continue PPI, H2 sabi 3)CAD (coronary artery disease): chronic, stable. S/p PCI, stent, continue aspirin, Plavix, isosorbide, metoprolol succinate, atorvastatin 4)Hypertension: chronic, at goal. Continue metoprolol succinate 5)Chronic kidney disease: CKD III, Creatinine around baseline. Monitor renal functions, avoid nephrotoxic agents when possible 6) COPD (chronic obstructive pulmonary disease): chronic, at goal, History COPD/bronchiectasis . Continue home inhalers, Albuterol as needed 7) Chronic anemia: stable, no bleeding. Hemoglobin same as baseline. Monitor H&H 8)Hypothyroid: chronic, at goal. Continue levothyroxine 9)Gout: chronic, stable. Continue allopurinol 10) (paroxysmal atrial fibrillation): History paroxysmal atrial fibrillation versus SVT seen on prior security monitor, Continue metoprolol succinate DVT Prophylaxis heparin DNR/DNI Disposition;patient daughter is a RN works in the [facility] and rehab. She wants him to be discharged there. Will obtain PT OT janeth. Case management on board to assist with transfer. Ro Najera DO [facility] Hospitalist (5) UTI (urinary tract infection): Admission and Anticipated Discharge Date Admission Date: February 27, 2023 Subjective 78-year-old man admitted for encephalopathy. 77 yo M with vascular dementia whose mental baseline is oriented to self and physical baseline is ambulating independently. He has been to the hospital eveery month this year and was admitted 02/10 for abdominal pain and syncope. He was getting into his car in the parking lot and doubled over with abdominal pain prior to passing out. Ongoing abdominal issues per 's report for months. Per ER notes this day he was making threats of violence against staff members; verbal redirection was unsuccessful. CT scan a/p at that time revealed no bowel obstruction or bowel wall thickening with a moderate sized hiatal hernia and colonic diverticulosis. Cholelithiasis was noted and he had a ventral midline pelvic hernia noted containing nonobstructive loops of small bowel. He developed a fever and urine was positive for sarmiento-sensitive E coli which was felt to be the cause of his abdominal pain. He was treated with cefdinir. Psychiatry saw him as he had intermittent episodes of agitation. He had a noted prolonged QTc. After treatment with an antipsychotic including regular Seroquel, he apparently was mentating around his baseline (02/20). Although rehab was recommended, his family declined and took him home. He returned on 02/21 for confusion, refusing to eat or drink and agitation. Per EMS, as noted on the ER intake note, the patient was not taking his medications and would not eat or drink. He was yelling loudly at times and swinging and spitting at staff. Palliative was consulted and he was discharged on 02/25 with hospice to [facility]. He was again confused, agitated and very dehydrated with a Na of 153. He was admitted and hypernatremia was corrected. He started to turn around yesterday and RN was able to feed him some lunch yesterday (03/01), however, he became more confused overnight. Cefepime was stopped after dose yesterday morning due to lack of evidence of bacterial infection or sepsis. This morning, WBC went to 28K from 8K yesterday, lactate is rising, acidosis worsening, renal function is worsening. CT c/a/p performed today revealing a new possible colitis in the rectosigmoid area. Rocephin/Flagyl started. Abdomen appears soft and NTND, however, patient is obtunded and cannot participate with the exam or questions. I went back again this afternoon and family was at the bedside. We discussed the labs and clinical picture, and it appeared the patient was starting to move his extremities and open his eyes more. Review of Systems Review of Systems: All systems reviewed negative except as indicated above. Physical Exam Physical Exam: CONSTITUTIONAL: WNWD, vitals as above, generally appears lethargic. EYES: pupils are round and equal bilaterally, normal conjunctivae, no scleral i cterus ENT: external ear and nose normal, oropharynx clear, MMM NECK: trachea midline RESPIRATORY: clear to auscultation bilaterally, no crackles, rales or wheezes, normal respiratory effort CARDIOVASCULAR: regular rate and rhythm, S1 and 2 heard without murmurs, gallops or rubs, no JVD, no peripheral edema CHEST: inspection of chest was normal GASTROINTESTINAL: soft, nontender, ND, no guarding : Harris in place MUSCULOSKELETAL: unable to cooperate with exam given confusion, however, no gross focal deficits were noted. head is normocephalic and atraumatic, SKIN: warm and dry NEUROLOGIC: CN 2-12 grossly intact, lethargic, speech intact but not making sense, no tremor. PSYCHIATRIC: lethargic. Results & Data Results & Data Vital Signs (Past 12 Hours) Vital Signs Temp Pulse Resp BP Pulse Ox O2 Del Method O2 Flow Rate 03/02/23 07:55 36.8 C 94 H 20 104/82 91 Nasal Cannula 5 03/02/23 03:00 37.3 C 79 23 94/61 L 95 Nasal Cannula 4 03/01/23 21:50 Nasal Cannula 4 03/01/23 23:00 37.4 C 76 24 133/73 95 Nasal Cannula 4 Laboratory Results Short CBC 03/02/23 Range/Units 06:01 WBC 28.94 H (4.8-10.8) K/ul Hgb 9.7 L (14.0-18.0) g/dl Hct 29.3 L (42.0-52.0) % Plt Count 202 (130-400) K/uL BMP 03/02/23 06:01 Sodium 137 Potassium 3.9 Chloride 106 Carbon Dioxide 20 L BUN 29 H Creatinine 2.20 H D Glucose 130 H Calcium 8.8 Diagnostic Findings Abdomen/Pelvis CT 03/02/23 10:12 CT SCAN OF THE ABDOMEN AND PELVIS WITHOUT IV CONTRAST CLINICAL HISTORY: Leukocytosis. Encephalopathy. COMPARISON STUDY: Abdominal CT dated 02/26/2023. TECHNIQUE: CT scan of the abdomen and pelvis is performed from the lung bases to the proximal femora. Images are reviewed in the axial, sagittal, and coronal planes. IV contrast was not administered for this examination as per the referring clinician. Note that the examination was performed in suboptimal fashion without oral and IV contrast. There is also motion artifact, as well as significant streak artifact from the arms which could not be elevated above the abdomen and bilateral hip arthroplasties. A dose lowering technique was utilized adhering to the principles of ALARA. FINDINGS: Lung bases: The heart is enlarged and without pericardial effusion. The coronary arteries are densely calcified. There is a moderate hiatal hernia. There are trace pleural effusions with dependent atelectasis. Liver: The unenhanced liver is normal in size, contour, and attenuation. There is no intrahepatic biliary ductal dilatation. Gallbladder: The gallbladder is distended but otherwise normal in appearance. Spleen: Normal in size and attenuation. Pancreas: The unenhanced pancreas is atrophic and grossly unremarkable. Adrenal glands: Unremarkable. Kidneys: The unenhanced kidneys demonstrate cortical atrophy and are without hyd ronephrosis. There are no renal calculi identified. There is no evidence of contour deforming renal mass lesion. Peripherally calcified left renal artery aneurysms measure up to 10 mm. Abdominal vasculature: There is advanced atherosclerotic calcification of the abdominal aorta. There is a 3.8 x 3.5 cm (AP x transverse) infrarenal abdominal aortic aneurysm. There is ectasia of the common iliac arteries which measure up to 2.0 cm. An infrarenal IVC filter is in place. Bowel: There are scattered colonic diverticula without CT evidence of acute diverticulitis. No bowel obstruction is seen. There is residual enteric contrast in the rectosigmoid. The appendix is well-visualized and normal. There is wall thickening of the rectosigmoid with surrounding inflammation and presacral edema. Peritoneum: No intraperitoneal free air is identified. A small amount of free fluid is seen in the left paracolic gutter and anterior to the iliac bifurcation. There is laxity of the ventral pelvic wall with protrusion of abdominal contents. Lymphadenopathy: None. Pelvic viscera: Evaluation of the pelvis is significantly degraded by streak artifact from bilateral hip arthroplasties. The bladder is decompressed on a Harris catheter and could not be assessed. The prostate gland is not visualized due to extensive streak artifact. Skeletal structures: The skeletal structures are osteopenic. There is moderate to advanced lumbosacral spondylosis. A 4.3 cm benign-appearing expansile lucency is again seen in the left iliac wing. No destructive bony lesion is identified. Bilateral hip arthroplasties are in place. There is a subacute inferior endplate compression fracture of L2. IMPRESSION: 1. Suboptimal examination without and IV contrast. There is also significant streak and motion artifact. 2. There is wall thickening of the rectosigmoid with surrounding infiltration and presacral edema. This represents a change from 02/26/2023. Correlate clinically for evidence of a nonspecific proctocolitis. 3. There is a small amount of free fluid seen anterior to the iliac bifurcation and in the left paracolic gutter. This is likely reactive. 4. No intraperitoneal free air is identified and there is no evidence of organized fluid collection on this unenhanced examination. 5. Cardiomegaly and trace pleural effusions. 6. Hiatal hernia. 7. Again seen is a subacute-appearing inferior endplate compression fracture of L2. 8. Additional findings as above. ACT 112: Negative or not required by law. Electronically signed by: Braden Rucker M.D. 03/02/2023 11:[address] 03/02/23 10:12 CT chest diagnostic wo con CT DOSE: HISTORY: clinical decline, elevated WBC, encephalopathic TECHNIQUE: Multiaxial CT images of the chest were performed without contrast. A dose lowering technique was utilized adhering to the principles of ALARA. COMPARISON: Chest CTA 12/04/2022. FINDINGS: Mild diffuse bronchial wall thickening again noted. Otherwise, the central airways are patent. No pneumothorax. No pleural effusions. Mild emphysema again noted. Punctate calcified granuloma within the left lower lobe posteriorly. A few bibasilar linear densities favor subsegmental atelectasis. Otherwise, no focal lung consolidations to suggest a pneumonia. No evidence for pulmonary edema. No acute fractures identified. Bilateral shoulder prostheses are again noted. These result in metallic artifact within the upper chest. There is a small hiatus hernia again noted. The abdominal structures will be reported on the same day abdomen and pelvis CT. Mild calcified plaque within the normal caliber thoracic aorta. There are severe coronary artery calcifications again noted. The heart is normal in size. No pericardial effusion. No mediastinal or hilar lymphadenopathy. IMPRESSION: 1. No focal lung consolidations to suggest a pneumonia. 2. Mild emphysema. 3. Small hiatus hernia. 4. The abdominal structures will be reported on the same day abdomen and pelvis CT. ACT 112: Negative or not required by law. Electronically signed by: Geovani Turner M.D. 03/02/2023 11:[address] 03/02/23 10:40 CT SCAN OF THE BRAIN WITHOUT IV CONTRAST CLINICAL HISTORY: Change in mental status. COMPARISON STUDY: CT of the brain dated 02/18/2023. TECHNIQUE: Unenhanced axial CT scan of the brain is performed from the vertex to the skull base. A dose lowering technique was utilized adhering to the principles of ALARA. The examination is modestly degraded by motion artifact. CT DOSE: 3654.81 mGy.cm FINDINGS: Brain parenchyma: There is age-related involutional change noting moderate subcortical and periventricular microangiopathic disease. There is no hemorrhage, mass effect, or evidence of acute territorial ischemia by CT criteria. There is a small chronic lacunar infarct in the right thalamus. Zuniga- white matter differentiation is preserved. No extra-axial fluid collection is seen. Ventricles, sulci, cisterns: Prominent secondary to involutional change. Intracranial vasculature: There is atherosclerotic calcification of the cavernous carotid arteries. Calvarium: Unremarkable. Sinuses and mastoids: The paranasal sinuses are clear. There are right larger than left mastoid effusions. Orbits: The bony orbits are grossly intact. There are bilateral ocular lens implants. IMPRESSION: There is no hemorrhage, mass effect, or evidence of acute territorial ischemia by CT criteria. ACT 112: Negative or not required by law. Electronically signed by: Braden Rucker M.D. 03/02/2023 11:43 AM Medications Administered Current Inpatient Medications Acetaminophen (Acetaminophen 325 Mg Tab) 650 mg PO Q6H PRN PRN Reason: TEMP/PAIN Stop: 03/29/23 04:37 Albuterol (Albut/Ipratrop 3mg/0.5mg Neb 3 Ml Vial) 3 ml NEB QIDR PRN; Protocol PRN Reason: Shortness Of Breath Or Wheezing Stop: 03/29/23 18:59 Allopurinol (Allopurinol 300 Mg Tab) 300 mg PO PM [facility] Stop: 03/29/23 20:59 Last Admin: 03/01/23 22:13 Dose: Not Given Famotidine (Famotidine 20 Mg Tab) 20 mg PO BID MANDY Stop: 03/29/23 08:59 Last Admin: 03/01/23 22:13 Dose: Not Given Heparin Sodium (Porcine) (Heparin Sod 5,000 Unit/0.5 Ml Vial) 5,000 units SQ Q8 MANDY Stop: 03/29/23 05:59 Last Admin: 03/02/23 06:27 Dose: 5,000 units Magnesium Sulfate/Dextrose (Magnesium Sulfate / D5w) 1 gm in 100 mls @ 50 mls/hr IV Q2H [facility] Stop: 03/02/23 15:44 Isosorbide Mononitrate (Isosorbide Spencer Extended Rel 30 Mg Tabcr) 30 mg PO QAM [facility] Stop: 03/29/23 08:59 Last Admin: 03/01/23 09:09 Dose: Not Given Levothyroxine Sodium (Levothyroxine Sodium 75 Mcg Tablet) 75 mcg PO DAILYBB [facility] Stop: 03/29/23 06:29 Last Admin: 03/02/23 06:33 Dose: Not Given Metoprolol Succinate (Metoprolol Succ 25mg Ext Rel Tab) 25 mg PO BID MANDY Stop: 03/29/23 08:59 Last Admin: 03/01/23 22:14 Dose: Not Given Olanzapine (Olanzapine Zydis 5 Mg Orally Dis. Tab) 5 mg PO HS [facility] Stop: 03/29/23 20:59 Last Admin: 03/01/23 22:14 Dose: Not Given Oxybutynin Chloride (Oxybutynin Chloride 5 Mg Tab) 5 mg PO BID MANDY Stop: 03/29/23 08:59 Last Admin: 02/27/23 08:41 Dose: Not Given Pantoprazole Sodium (Pantoprazole 40 Mg Tab) 40 mg PO BID [facility] Stop: 03/29/23 08:59 Last Admin: 03/01/23 22:14 Dose: Not Given Quetiapine Fumarate (Quetiapine Fumarate 25 Mg Tablet) 25 mg PO BID [facility] Stop: 03/29/23 08:59 Last Admin: 02/27/23 08:41 Dose: Not Given Sodium Chloride (Sodium Chlor 7% 4 Ml Neb) 4 ml NEB BIDR PRN PRN Reason: Sputum induction Stop: 03/29/23 18:59
[2023-03-02] MEDS ORDERED: cefTRIAXone SODIUM 2,000 MG in DEXTROSE 5% 50 ML IV SCH (09:45)
[2023-03-02] MEDS ORDERED: PROMETHAZINE HCL 25 MG SUPP PR ONE ×3 (10:11→10:30)
[2023-03-02] MEDS: METOPROLOL SUCC 25MG EXT REL TAB PO SCH ×2 (10:16→21:04)
[2023-03-02] MEDS: PANTOprazole 40 MG TAB PO SCH ×2 (10:16→21:06)
[2023-03-02] MEDS: FAMOTIDINE 20 MG TAB PO SCH ×2 (10:16→21:03)
[2023-03-02] MEDS: ISOSORBIDE MONO EXTENDED REL 30 MG TABCR PO SCH (10:16)
[2023-03-02] MEDS: ACETAMINOPHEN 1,000 MG/100 ML VIAL IV SCH ×2 (10:24→18:45)
[2023-03-02] MEDS: MAGNESIUM SULFATE / D5W 1 GM/100 ML BAG IV SCH ×3 (10:30→14:46)
--- NOTE | 2023-03-02 11:46 | CT Scan Report ---
CT SCAN OF THE BRAIN WITHOUT IV CONTRAST CLINICAL HISTORY: Change in mental status. COMPARISON STUDY: CT of the brain dated 02/18/2023. TECHNIQUE: Unenhanced axial CT scan of the brain is performed from the vertex to the skull base. A do se lowering technique was utilized adhering to the principles of ALARA. The examination is modestly d egraded by motion artifact. CT DOSE: 3654.81 mGy.cm FINDINGS: Brain parenchyma: There is age-related involutional change noting moderate subcortical and periventri cular microangiopathic disease. There is no hemorrhage, mass effect, or evidence of acute territorial ischemia by CT criteria. There is a small chronic lacunar infarct in the right thalamus. Zuniga-white matter differentiation is preserved. No extra-axial fluid collection is seen. Ventricles, sulci, cisterns: Prominent secondary to involutional change. Intracranial vasculature: There is atherosclerotic calcification of the cavernous carotid arteries. Calvarium: Unremarkable. Sinuses and mastoids: The paranasal sinuses are clear. There are right larger than left mastoid effus ions. Orbits: The bony orbits are grossly intact. There are bilateral ocular lens implants. IMPRESSION: There is no hemorrhage, mass effect, or evidence of acute territorial ischemia by CT carin dozier. ACT 112: Negative or not required by law. Electronically signed by: Braden Rucker M.D. 03/02/2023 11:43 AM
--- NOTE | 2023-03-02 11:53 | CT Scan Report ---
CT chest diagnostic wo con CT DOSE: HISTORY: clinical decline, elevated WBC, encephalopathic TECHNIQUE: Multiaxial CT images of the chest were performed without contrast. A dose lowering techni que was utilized adhering to the principles of ALARA. COMPARISON: Chest CTA 12/04/2022. FINDINGS: Mild diffuse bronchial wall thickening again noted. Otherwise, the central airways are herrera nt. No pneumothorax. No pleural effusions. Mild emphysema again noted. Punctate calcified granuloma w ithin the left lower lobe posteriorly. A few bibasilar linear densities favor subsegmental atelectasi s. Otherwise, no focal lung consolidations to suggest a pneumonia. No evidence for pulmonary edema. N o acute fractures identified. Bilateral shoulder prostheses are again noted. These result in metallic artifact within the upper chest. There is a small hiatus hernia again noted. The abdominal structure s will be reported on the same day abdomen and pelvis CT. Mild calcified plaque within the normal alea iber thoracic aorta. There are severe coronary artery calcifications again noted. The heart is normal in size. No pericardial effusion. No mediastinal or hilar lymphadenopathy. IMPRESSION: 1. No focal lung consolidations to suggest a pneumonia. 2. Mild emphysema. 3. Small hiatus hernia. 4. The abdominal structures will be reported on the same day abdomen and pelvis CT. ACT 112: Negative or not required by law. Electronically signed by: Geovani Turner M.D. 03/02/2023 11:51 AM
--- NOTE | 2023-03-02 12:00 | CT Scan Report ---
CT SCAN OF THE ABDOMEN AND PELVIS WITHOUT IV CONTRAST CLINICAL HISTORY: Leukocytosis. Encephalopathy. COMPARISON STUDY: Abdominal CT dated 02/26/2023. TECHNIQUE: CT scan of the abdomen and pelvis is performed from the lung bases to the proximal femora. Images are reviewed in the axial, sagittal, and coronal planes. IV contrast was not administered for this examination as per the referring clinician. Note that the examination was performed in suboptim al fashion without oral and IV contrast. There is also motion artifact, as well as significant streak artifact from the arms which could not be elevated above the abdomen and bilateral hip arthroplastie s. A dose lowering technique was utilized adhering to the principles of ALARA. FINDINGS: Lung bases: The heart is enlarged and without pericardial effusion. The coronary arteries are densely calcified. There is a moderate hiatal hernia. There are trace pleural effusions with dependent atele ctasis. Liver: The unenhanced liver is normal in size, contour, and attenuation. There is no intrahepatic katie iary ductal dilatation. Gallbladder: The gallbladder is distended but otherwise normal in appearance. Spleen: Normal in size and attenuation. Pancreas: The unenhanced pancreas is atrophic and grossly unremarkable. Adrenal glands: Unremarkable. Kidneys: The unenhanced kidneys demonstrate cortical atrophy and are without hydronephrosis. There ar e no renal calculi identified. There is no evidence of contour deforming renal mass lesion. Periphera lly calcified left renal artery aneurysms measure up to 10 mm. Abdominal vasculature: There is advanced atherosclerotic calcification of the abdominal aorta. There is a 3.8 x 3.5 cm (AP x transverse) infrarenal abdominal aortic aneurysm. There is ectasia of the com mon iliac arteries which measure up to 2.0 cm. An infrarenal IVC filter is in place. Bowel: There are scattered colonic diverticula without CT evidence of acute diverticulitis. No bowel obstruction is seen. There is residual enteric contrast in the rectosigmoid. The appendix is well-vi sualized and normal. There is wall thickening of the rectosigmoid with surrounding inflammation and p resacral edema. Peritoneum: No intraperitoneal free air is identified. A small amount of free fluid is seen in the le ft paracolic gutter and anterior to the iliac bifurcation. There is laxity of the ventral pelvic wall with protrusion of abdominal contents. Lymphadenopathy: None. Pelvic viscera: Evaluation of the pelvis is significantly degraded by streak artifact from bilateral hip arthroplasties. The bladder is decompressed on a Harris catheter and could not be assessed. The pr ostate gland is not visualized due to extensive streak artifact. Skeletal structures: The skeletal structures are osteopenic. There is moderate to advanced lumbosacra l spondylosis. A 4.3 cm benign-appearing expansile lucency is again seen in the left iliac wing. No d estructive bony lesion is identified. Bilateral hip arthroplasties are in place. There is a subacute inferior endplate compression fracture of L2. IMPRESSION: 1. Suboptimal examination without and IV contrast. There is also significant streak and motion artifa ct. 2. There is wall thickening of the rectosigmoid with surrounding infiltration and presacral edema. Th is represents a change from 02/26/2023. Correlate clinically for evidence of a nonspecific proctocolit is. 3. There is a small amount of free fluid seen anterior to the iliac bifurcation and in the left parac olic gutter. This is likely reactive. 4. No intraperitoneal free air is identified and there is no evidence of organized fluid collection o n this unenhanced examination. 5. Cardiomegaly and trace pleural effusions. 6. Hiatal hernia. 7. Again seen is a subacute-appearing inferior endplate compression fracture of L2. 8. Additional findings as above. ACT 112: Negative or not required by law. Electronically signed by: Braden Rucker M.D. 03/02/2023 11:58 AM
[2023-03-02 12:22] LABS: Appearance Urine Turbid (Clear); Bacteria Urine Automated Negative (Negative); Bilirubin Urine 2+ (Negative); Blood Urine 3+ (Negative); Color Urine Dark Yellow; Epithelial Cell Urine Auto >30 /lpf (0-5); Glucose Urine UA Negative (Negative); Ketones Urine Trace (Negative); Leukocyte Esterase Urine 1+ (Negative); Nitrite Urine Positive (Negative); Protein Urine 2+ (Negative); Specific Gravity Urine 1.033 (1.000-1.030); Urobilinogen Urine Negative (Negative); WBC Urine Automated >30 /hpf (0-5)
[2023-03-02] MEDS: metroNIDAZOLE 500 MG/100 ML BAG IV SCH ×2 (13:57→21:04)
[2023-03-02 17:31] LABS: Hematocrit (blood only) 30.4 % (42.0-52.0); Hemoglobin 9.9 g/dl (14.0-18.0); Mean Corpuscular Hemoglobin 33.3 pg (25.0-34.0); Mean Corpuscular Hgb Conc 32.6 g/dL (32.0-36.0); Mean Corpuscular Volume 102.4 fL (80.0-100.0); Mean Platelet Volume 11.6 fL (9.4-12.4); Platelet Count 211 K/uL (130-400); RDW Coefficient of Variation 14.7 % (11.5-14.5); RDW Standard Deviation 55.2 fL (36.4-46.3); Red Blood Count 2.97 M/uL (4.70-6.10); White Blood Count 27.49 K/ul (4.8-10.8)
[2023-03-02 17:54] LABS: BUN Creatinine Ratio 14.4 (10-20); Basophils # (auto) 0.05 K/uL (0-0.2); Basophils % (auto) 0.2 %; Calcium 8.7 mg/dl (8.6-10.3); Creatinine Clr Calc Pharmacy 28.3 ml/min; Echinocytes 1+; Est GFR (African American) 31.7 ml/min; Est GFR (Non-African American) 27.4 ml/min; Immature Granulocytes % (auto) 1.5 %; Lymphocytes # (auto) 0.65 K/uL (1.2-3.4); Lymphocytes % (auto) 2.4 %; Magnesium 2.3 mg/dl (1.7-2.4); Monocytes # (auto) 1.93 K/uL (0.11-0.59); Neutrophils # (auto) 24.46 K/uL (1.40-6.50); Neutrophils % (auto) 88.9 %; Phosphorus 3.1 mg/dl (2.5-4.9); Potassium 3.6 mmol/L (3.5-5.1)
[2023-03-02] MEDS ORDERED: SODIUM CHLORIDE 0.9% 500 ML IV ONE (19:59)
[2023-03-02] MEDS ORDERED: SODIUM CHLORIDE 0.9% 1000ML 1,000 ML IV SCH (20:00)
[2023-03-02] MEDS: allopurinoL 300 MG TAB PO SCH (21:03)
[2023-03-02] MEDS: OLANZapine ZYDIS 5 MG ORALLY DIS. TAB PO SCH (21:05)
[2023-03-02 23:51] LABS: Creatinine Urine Random 192.2 mg/dl
[2023-03-03] MEDS ORDERED: LACTATED RINGER'S 1,000 ML IV ONE (00:30)
--- NOTE | 2023-03-03 00:33 | Communication Note ---
Date of Service: March 03, 2023 Made aware of persistent lactic acidosis AP Severe sepsis SIRS plus lactic acidosis secondary to recurrent complicated UTI Increase IVF Cefepime in place of ceftriaxone for broader gram-negative coverage
[2023-03-03 00:53] LABS: Amphetamines+Metham, Urine Neg (Neg); Barbiturates, Urine Neg (Neg); Benzodiazepine, Urine Neg (Neg); Cocaine, Urine Neg (Neg); MDMA (Ecstacy), Urine Neg (Neg); Methadone, Urine Neg (Neg); Opiate, Urine Pos (Neg); Phencyclidine, Urine Neg (Neg)
[2023-03-03] MEDS ORDERED: CEFEPIME 2,000 MG in SYRINGE 0 ML IV ONE (01:00)
[2023-03-03] MEDS: ACETAMINOPHEN 1,000 MG/100 ML VIAL IV SCH ×3 (03:40→18:35)
[2023-03-03 05:24] LABS: Hematocrit (blood only) 26.2 % (42.0-52.0); Hemoglobin 8.6 g/dl (14.0-18.0); Mean Corpuscular Hemoglobin 33.5 pg (25.0-34.0); Mean Corpuscular Hgb Conc 32.8 g/dL (32.0-36.0); Mean Corpuscular Volume 101.9 fL (80.0-100.0); Mean Platelet Volume 11.4 fL (9.4-12.4); Platelet Count 181 K/uL (130-400); Red Blood Count 2.57 M/uL (4.70-6.10)
[2023-03-03 05:31] LABS: Albumin Globulin Ratio 0.8 (0.9-2); Albumin Level 2.5 gm/dl (3.4-5.0); BUN Creatinine Ratio 17.4 (10-20); Bilirubin,Total 0.7 mg/dl (0.2-1.0); Calcium 8.4 mg/dl (8.6-10.3); Creatinine Clr Calc Pharmacy 32.2 ml/min; Est GFR (African American) 37.1 ml/min; Globulin 3.2 gm/dl (2.5-4.0); Potassium 3.5 mmol/L (3.5-5.1); Total Protein 5.7 gm/dl (6.0-8.3)
[2023-03-03] MEDS: LEVOTHYROXINE SODIUM 75 MCG TABLET PO SCH (05:41)
[2023-03-03] MEDS: metroNIDAZOLE 500 MG/100 ML BAG IV SCH ×3 (05:41→20:27)
[2023-03-03] MEDS: HEPARIN SOD 5,000 UNIT/0.5 ML VIAL SQ SCH ×3 (05:41→21:03)
[2023-03-03 06:21] LABS: Acanthocytes 1+; Basophils # (auto) 0.04 K/uL (0-0.2); Basophils % (auto) 0.2 %; Echinocytes 1+; Eosinophils # (auto) 0.01 K/uL (0-0.50); Immature Granulocytes # (auto) 0.27 K/uL (0.01-0.20); Immature Granulocytes % (auto) 1.3 %; Lymphocytes # (auto) 0.51 K/uL (1.2-3.4); Lymphocytes % (auto) 2.5 %; Monocytes # (auto) 1.14 K/uL (0.11-0.59); Monocytes % (auto) 5.6 %; Neutrophils # (auto) 18.33 K/uL (1.40-6.50); Neutrophils % (auto) 90.4 %; Polychromasia 1+
[2023-03-03] MEDS ORDERED: NSS + 20MEQ KCL 20 MEQ/1,000 ML BAG IV ONE (06:30)
[2023-03-03] MEDS: ISOSORBIDE MONO EXTENDED REL 30 MG TABCR PO SCH (09:21)
[2023-03-03] MEDS: PANTOprazole 40 MG TAB PO SCH ×2 (09:21→20:17)
[2023-03-03] MEDS: FAMOTIDINE 20 MG TAB PO SCH ×2 (09:21→20:17)
[2023-03-03] MEDS: METOPROLOL SUCC 25MG EXT REL TAB PO SCH ×2 (09:21→20:17)
--- NOTE | 2023-03-03 12:19 | Surgery Consultation ---
Date of Consultation March 03, 2023 Assessment & Plan (1) Acute metabolic encephalopathy: (2) Advanced dementia: (3) Abdominal pain: Plan 78 year-old male with multiple comorbidities including advanced dementia with recent multiple hospital admissions for metabolic encephalopathy. Recently discharged to palliative/hospice care and then represented back to hospital due to increasing confusion, agitation, and severe dehydration. Increasing abdominal pain on 03/02/[address] scan showing rectosigmoid proctocolitis as well as elevated wbc to 28k and lactic acid at 2.3. Unable to obtain ROS from patient. He is current hemodynamically stable, afebrile, leukocytosis improving to 20K today, lactic acid normalized. Abdomen is soft with tenderness and voluntary guarding of LLQ on palpation but not rigidity, distention, or peritonitis. Differential: Ischemic colitis due to severe dehydration vs nonspecific colitis Plan No surgical intervention required Continue conservative measures: NPO bowel rest, IV fluid hydration, IV antibiotics with Cefepime and Flagyl, pain management as needed follow cbc continue medical management agree palliative care consult to determine goals of care with patients family as there was confusion from last admission [facility] weekend. Discussed with Dr. burciaga who agrees with above. History of Present Illness Reason for Consultation: increasing abdominal pain, lactic acidosis, and increasing WBC Requesting Physician: Ro Najera Do Attending Physician: Ro Najera DO History of Present Illness History obtained by chart and discussion with Dr. Najera. 78 yo male with advanced vascular dementia, PAF, gout, barretts esophagus, NSTEMI, Chronic kidney disease, CAD, hypothyroidism, chronic anemia, COPD, prostate cancer, aortic aneurysm who has been admitted to hospital multiple times this year. Last admission was 02/21 due to patient unable to take care of family at home and patient agitation and refusing food and water. He was discharged to hospice vs palliative care and then presented back to hospital on 02/26/23 due to confusion, agitated states and dehydration with Ns of 153. WBC increased from 8.3 to 28k on 03/02. Lactic acid elevated at 2.[address] scan of abdomen and pelvis showed nonspecific rectosigmoid proctocolitis. Our services consulted for further evaluation. Allergies Allergy/AdvReac Type Severity Reaction Status Date / Time benzocaine Allergy Severe SLOUGHING Verified 02/26/23 23:38 OF SKIN clindamycin Allergy Intermediate RASH Verified 02/26/23 23:38 clobetasol Allergy Intermediate ITCHING Verified 02/26/23 23:38 cyanocobalamin (vitamin B12) Allergy Intermediate Rash Verified 02/26/23 23:38 doxycycline Allergy Intermediate RASH Verified 02/26/23 23:38 Penicillins Allergy Intermediate HIVES Verified 02/26/23 23:38 phenethylamine Allergy Intermediate Itching Verified 02/26/23 23:38 povidone-iodine Allergy Intermediate Hives Verified 02/26/23 23:38 [From Betadine] soap [From Betadine] Allergy Intermediate Hives Verified 02/26/23 23:38 tea tree Allergy Intermediate ITCHING Verified 02/26/23 23:38 lorazepam [From Ativan] AdvReac Mild Confusion Verified 02/26/23 23:38 Home Medications Medication Instructions Recorded Confirmed Type docusate sodium 100 mg capsule 100 mg PO Q12H PRN Constipation 06/14/18 02/26/23 History famotidine 20 mg tablet 20 mg PO BID 06/14/18 02/26/23 History metoprolol succinate 25 mg 25 mg PO BID 06/14/18 02/26/23 History tablet,extended release 24 hr oxybutynin chloride 5 mg tablet 5 mg PO BID 06/14/18 02/26/23 History albuterol sulfate 2.5 mg/3 mL 2.5 mg inhalation Q6H PRN 01/07/19 02/26/23 History (0.083 %) solution for nebulization Shortness Of Breath isosorbide mononitrate 30 mg 30 mg PO QAM 01/28/20 02/26/23 History tablet,extended release 24 hr valacyclovir 500 mg tablet 500 mg PO BID PRN RECURRENT EPISODE 09/18/20 02/26/23 History levothyroxine 75 mcg tablet 75 mcg PO QAM 09/09/21 02/26/23 History (Synthroid) allopurinol 300 mg tablet 300 mg PO PM 12/04/22 02/26/23 History pantoprazole 40 mg tablet,delayed 40 mg PO BID #60 tabs 01/14/23 02/26/23 Rx release arformoterol 15 mcg/2 mL solution 2 ml inhalation BID 02/10/23 02/26/23 History for nebulization budesonide 0.5 mg/2 mL suspension 0.25 mg inhalation BID 02/10/23 02/26/23 History for nebulization calcium carbonate 200 mg calcium 400 mg PO BID PRN Acid Reflux 02/10/23 02/26/23 History (500 mg) chewable tablet (Tums) triamcinolone acetonide 0.1 % 1 applic topical BID PRN flare up 02/10/23 02/26/23 History topical cream haloperidol lactate 2 mg/mL oral 2 mg PO Q4H PRN agitation 30 days 02/25/23 02/26/23 Rx concentrate #15 mL quetiapine 25 mg tablet 25 mg PO BID 30 days #60 tabs 02/25/23 02/26/23 Rx acetaminophen 325 mg tablet 650 mg PO Q6H PRN TEMP/PAIN 02/26/23 02/26/23 History (Tylenol) morphine concentrate 100 mg/5 mL 5 mg PO Q3H PRN Pain 02/26/23 02/26/23 History (20 mg/mL) oral solution morphine concentrate 100 mg/5 mL 5 mg PO Q6H 02/26/23 02/26/23 History (20 mg/mL) oral solution olanzapine 5 mg disintegrating 5 mg PO HS 02/26/23 02/26/23 History tablet Patient History Medical History (Updated 03/01/23 @ 19:28 by Ro Najera DO) Advanced care planning/counseling discussion Agitation due to dementia Anxiety Aortic aneurysm stable 3cm; pcp monitors Barretts esophagus Blood clotting disorder pt unable to verify Chronic anemia Chronic back pain Chronic kidney disease, stage 3 COPD (chronic obstructive pulmonary disease) inhalers and nebulizers daily Coronary artery disease Dementia with behavioral disturbance Dementia without behavioral disturbance Diverticular disease GERD (gastroesophageal reflux disease) Gout Gracie filter in place Hearing deficit Hyperlipidemia Hypertension Idiopathic neuropathy Myocardial Infarction 2016--follows with Dr. Casanova Need for comfort care Neuropathy Nocturnal hypoxemia On home oxygen therapy 2.5L N/C at HS Osteoarthritis Palliative care by specialist Poor historian Prostate cancer sx Recurrent genital herpes simplex (Unknown) Sciatica Sleep apnea oxygen at night Temporomandibular joint disorder Surgical History History of arthroscopic knee surgery History of bilateral cataract extraction History of cardiac cath x5--last 2018 History of colonoscopy History of esophagogastroduodenoscopy (EGD) History of heart artery stent multiple--last 2019 2/2 to restenosis History of hernia repair epigastric History of left shoulder replacement History of lumbar surgery History of mandibular surgery tmj repair History of prostate biopsy malignant History of prostatectomy History of right inguinal hernia repair History of right shoulder replacement History of tooth extraction all teeth removed Status post correction of deviated nasal septum Status post total hip replacement, bilateral Family History Other Family history not known due to adoption Social History Smoking Status: Unknown if ever smoked Tobacco Type: Cigarettes Hx Alcohol Use: No Hx Substance Use: No Preferred Language: Palauan Communication Ability: Unable Communication Ability Comment: unable to assess 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: No Beliefs That Will Affect Care: None marital status: Current Living Situation: [facility] Current Living Situation Comment: lives with and son current occupational status: retired How many Children do You have: 4 Other Information That Helps Us Care for You: No Feels Safe at Home: Yes Safety Concerns: Feels Safe At This Time Assistive Devices: Cane and Wheelchair Review of Systems Review of Systems: Unobtainable due to cognitive status Physical Exam Constitutional: + obese, + frail appearing and + lethargic; no acute distress Respiratory: normal respiratory effort; no respiratory distress, no labored breathing and no retractions Gastrointestinal (Abdomen): Inspection/Auscultation: abdomen normal to inspection and + visible herniation (lower ventral hernia); abdomen not distended Percussion/Palpation: + abdomen tender (LLQ), + guarding (LLQ on palpation , voluntary) and abdomen soft; abdomen not rigid and abdomen not firm No peritonitis Skin: no rashes, warm and dry Psychiatric: Orientation: + not oriented x 3 Results & Data Vital Signs (Past 12 Hours) Vital Signs Temp Pulse Resp BP Pulse Ox O2 Del Method O2 Flow Rate 03/03/23 11:43 36.8 C 62 22 122/80 99 Nasal Cannula 6 03/03/23 07:17 36.9 C 82 20 116/68 97 Nasal Cannula 5 03/03/23 03:10 37.2 C 80 16 111/72 96 Nasal Cannula 5 Laboratory Results 03/03/23 03/03/23 03/03/23 Range/Units 04:43 04:43 04:43 WBC 20.30 H (4.8-10.8) K/ul RBC 2.57 L (4.70-6.10) M/uL Hgb 8.6 L (14.0-18.0) g/dl Hct 26.2 L (42.0-52.0) % MCV 101.9 H (80.0-100.0) fL MCH 33.5 (25.0-34.0) pg MCHC 32.8 (32.0-36.0) g/dL RDW Std Deviation 56.0 H (36.4-46.3) fL RDW Coeff of Zoë 15.0 H (11.5-14.5) % Plt Count 181 (130-400) K/uL MPV 11.4 (9.4-12.4) fL Immature Gran % (Auto) 1.3 % Neut % (Auto) 90.4 % Lymph % (Auto) 2.5 % [place] % (Auto) 5.6 % Eos % (Auto) 0.0 % Baso % (Auto) 0.2 % Neut # (Auto) 18.33 H (1.40-6.50) K/uL Lymph # (Auto) 0.51 L (1.2-3.4) K/uL [place] # (Auto) 1.14 H (0.11-0.59) K/uL Eos # (Auto) 0.01 (0-0.50) K/uL Baso # (Auto) 0.04 (0-0.2) K/uL Immature Gran # (Auto) 0.27 H (0.01-0.20) K/uL Polychromasia 1+ Echinocytes 1+ Acanthocytes (Spur) 1+ VBG pH (7.36-7.41) Sodium 135 L (136-145) mmol/L Potassium 3.5 (3.5-5.1) mmol/L Chloride 108 H (98-107) mmol/L Carbon Dioxide 18 L (21-32) mmol/L Anion Gap 9 (3-11) BUN 34 H (6-23) mg/dl Creatinine 1.95 H (0.6-1.4) mg/dl Est Cr Clr Drug Dosing 32.2 ml/min Est GFR ( Amer) 37.1 ml/min Est GFR (Non-Af Amer) 32.0 ml/min BUN/Creatinine Ratio 17.4 (10-20) Glucose 96 (70-99(Fasting)) mg/dl Lactate 1.9 (0.4-2.0) mmol/L Calcium 8.4 L (8.6-10.3) mg/dl Phosphorus (2.5-4.9) mg/dl Magnesium (1.7-2.4) mg/dl Total Bilirubin 0.7 (0.2-1.0) mg/dl AST 47 H (13-39) U/L ALT 31 (7-52) U/L Alkaline Phosphatase 71 (34-104) U/L Total Protein 5.7 L (6.0-8.3) gm/dl Albumin 2.5 L (3.4-5.0) gm/dl Globulin 3.2 (2.5-4.0) gm/dl Albumin/Globulin Ratio 0.8 L (0.9-2) Urine Color Urine Appearance (Clear) Urine pH (4.5-7.5) Ur Specific [place] (1.000-1.030) Urine Protein (Negative) Urine Glucose (UA) (Negative) Urine Ketones (Negative) Urine Blood (Negative) Urine Nitrite (Negative) Urine Bilirubin (Negative) Urine Urobilinogen (Negative) Ur Leukocyte Esterase (Negative) Urine WBC (Auto) (0-5) /hpf Urine RBC (Auto) (0-4) /hpf U Hyaline Cast (Auto) (0-5) /lpf U Epithel Cells (Auto) (0-5) /lpf Urine Bacteria (Auto) (Negative) Urine Yeast (None Prsent) Urine Osmolality (500-800) mOsm/kg Ur Random Creatinine mg/dl Ur Random Sodium mmol/L Urine Opiates Screen (Neg) U Codeine Confrm GC/MS Ur Morphine (GC/MS) Ur Hydrocodone (GC/MS) Ur Norhydrocodone Ur Noroxycodone Urine Oxycodone (GC/MS) U Oxymorphone GC/MS Ur Methadone, Qual (Neg) Ur Hydromorphone (GC/MS) Urine Barbiturates (Neg) Ur Phencyclidine (PCP) (Neg) U Amphetamin/Meth Scrn (Neg) MDMA (Ecstasy) Screen (Neg) U Benzodiazepines Scrn (Neg) Ur Cocaine Metabolite (Neg) U Marijuana (THC) Screen (Neg) Drug Screen Comment 03/03/23 03/02/23 03/02/23 Range/Units 00:51 Unknown 22:55 WBC (4.8-10.8) K/ul RBC (4.70-6.10) M/uL Hgb (14.0-18.0) g/dl Hct (42.0-52.0) % MCV (80.0-100.0) fL MCH (25.0-34.0) pg MCHC (32.0-36.0) g/dL RDW Std Deviation (36.4-46.3) fL RDW Coeff of Zoë (11.5-14.5) % Plt Count (130-400) K/uL MPV (9.4-12.4) fL Immature Gran % (Auto) % Neut % (Auto) % Lymph % (Auto) % [place] % (Auto) % Eos % (Auto) % Baso % (Auto) % Neut # (Auto) (1.40-6.50) K/uL Lymph # (Auto) (1.2-3.4) K/uL [place] # (Auto) (0.11-0.59) K/uL Eos # (Auto) (0-0.50) K/uL Baso # (Auto) (0-0.2) K/uL Immature Gran # (Auto) (0.01-0.20) K/uL Polychromasia Echinocytes Acanthocytes (Spur) VBG pH (7.36-7.41) Sodium (136-145) mmol/L Potassium (3.5-5.1) mmol/L Chloride (98-107) mmol/L Carbon Dioxide (21-32) mmol/L Anion Gap (3-11) BUN (6-23) mg/dl Creatinine (0.6-1.4) mg/dl Est Cr Clr Drug Dosing ml/min Est GFR ( Amer) ml/min Est GFR (Non-Af Amer) ml/min BUN/Creatinine Ratio (10-20) Glucose (70-99(Fasting)) mg/dl Lactate 2.4 H* 2.3 H* (0.4-2.0) mmol/L Calcium (8.6-10.3) mg/dl Phosphorus (2.5-4.9) mg/dl Magnesium (1.7-2.4) mg/dl Total Bilirubin (0.2-1.0) mg/dl AST (13-39) U/L ALT (7-52) U/L Alkaline Phosphatase (34-104) U/L Total Protein (6.0-8.3) gm/dl Albumin (3.4-5.0) gm/dl Globulin (2.5-4.0) gm/dl Albumin/Globulin Ratio (0.9-2) Urine Color Dark Yellow Urine Appearance Turbid A (Clear) Urine pH 5.0 (4.5-7.5) Ur Specific [place] 1.033 H (1.000-1.030) Urine Protein 2+ H (Negative) Urine Glucose (UA) Negative (Negative) Urine Ketones Trace H (Negative) Urine Blood 3+ H (Negative) Urine Nitrite Positive A (Negative) Urine Bilirubin 2+ H (Negative) Urine Urobilinogen Negative (Negative) Ur Leukocyte Esterase 1+ H (Negative) Urine WBC (Auto) >30 H (0-5) /hpf Urine RBC (Auto) 5-10 H (0-4) /hpf U Hyaline Cast (Auto) 5-10 H (0-5) /lpf U Epithel Cells (Auto) >30 H (0-5) /lpf Urine Bacteria (Auto) Negative (Negative) Urine Yeast Budding A (None Prsent) Urine Osmolality (500-800) mOsm/kg Ur Random Creatinine mg/dl Ur Random Sodium mmol/L Urine Opiates Screen (Neg) U Codeine Confrm GC/MS Ur Morphine (GC/MS) Ur Hydrocodone (GC/MS) Ur Norhydrocodone Ur Noroxycodone Urine Oxycodone (GC/MS) U Oxymorphone GC/MS Ur Methadone, Qual (Neg) Ur Hydromorphone (GC/MS) Urine Barbiturates (Neg) Ur Phencyclidine (PCP) (Neg) U Amphetamin/Meth Scrn (Neg) MDMA (Ecstasy) Screen (Neg) U Benzodiazepines Scrn (Neg) Ur Cocaine Metabolite (Neg) U Marijuana (THC) Screen (Neg) Drug Screen Comment 03/02/23 03/02/23 03/02/23 Range/Units 22:30 22:30 22:30 WBC (4.8-10.8) K/ul RBC (4.70-6.10) M/uL Hgb (14.0-18.0) g/dl Hct (42.0-52.0) % MCV (80.0-100.0) fL MCH (25.0-34.0) pg MCHC (32.0-36.0) g/dL RDW Std Deviation (36.4-46.3) fL RDW Coeff of Zoë (11.5-14.5) % Plt Count (130-400) K/uL MPV (9.4-12.4) fL Immature Gran % (Auto) % Neut % (Auto) % Lymph % (Auto) % [place] % (Auto) % Eos % (Auto) % Baso % (Auto) % Neut # (Auto) (1.40-6.50) K/uL Lymph # (Auto) (1.2-3.4) K/uL [place] # (Auto) (0.11-0.59) K/uL Eos # (Auto) (0-0.50) K/uL Baso # (Auto) (0-0.2) K/uL Immature Gran # (Auto) (0.01-0.20) K/uL Polychromasia Echinocytes Acanthocytes (Spur) VBG pH (7.36-7.41) Sodium (136-145) mmol/L Potassium (3.5-5.1) mmol/L Chloride (98-107) mmol/L Carbon Dioxide (21-32) mmol/L Anion Gap (3-11) BUN (6-23) mg/dl Creatinine (0.6-1.4) mg/dl Est Cr Clr Drug Dosing ml/min Est GFR ( Amer) ml/min Est GFR (Non-Af Amer) ml/min BUN/Creatinine Ratio (10-20) Glucose (70-99(Fasting)) mg/dl Lactate (0.4-2.0) mmol/L Calcium (8.6-10.3) mg/dl Phosphorus (2.5-4.9) mg/dl Magnesium (1.7-2.4) mg/dl Total Bilirubin (0.2-1.0) mg/dl AST (13-39) U/L ALT (7-52) U/L Alkaline Phosphatase (34-104) U/L Total Protein (6.0-8.3) gm/dl Albumin (3.4-5.0) gm/dl Globulin (2.5-4.0) gm/dl Albumin/Globulin Ratio (0.9-2) Urine Color Urine Appearance (Clear) Urine pH (4.5-7.5) Ur Specific [place] (1.000-1.030) Urine Protein (Negative) Urine Glucose (UA) (Negative) Urine Ketones (Negative) Urine Blood (Negative) Urine Nitrite (Negative) Urine Bilirubin (Negative) Urine Urobilinogen (Negative) Ur Leukocyte Esterase (Negative) Urine WBC (Auto) (0-5) /hpf Urine RBC (Auto) (0-4) /hpf U Hyaline Cast (Auto) (0-5) /lpf U Epithel Cells (Auto) (0-5) /lpf Urine Bacteria (Auto) (Negative) Urine Yeast (None Prsent) Urine Osmolality (500-800) mOsm/kg Ur Random Creatinine 192.2 mg/dl Ur Random Sodium 16 mmol/L Urine Opiates Screen Pos H (Neg) U Codeine Confrm GC/MS Pending Ur Morphine (GC/MS) Pending Ur Hydrocodone (GC/MS) Pending Ur Norhydrocodone Pending Ur Noroxycodone Pending Urine Oxycodone (GC/MS) Pending U Oxymorphone GC/MS Pending Ur Methadone, Qual Neg (Neg) Ur Hydromorphone (GC/MS) Pending Urine Barbiturates Neg (Neg) Ur Phencyclidine (PCP) Neg (Neg) U Amphetamin/Meth Scrn Neg (Neg) MDMA (Ecstasy) Screen Neg (Neg) U Benzodiazepines Scrn Neg (Neg) Ur Cocaine Metabolite Neg (Neg) U Marijuana (THC) Screen Neg (Neg) Drug Screen Comment Pending 03/02/23 03/02/23 03/02/23 Range/Units 22:30 19:44 17:36 WBC (4.8-10.8) K/ul RBC (4.70-6.10) M/uL Hgb (14.0-18.0) g/dl Hct (42.0-52.0) % MCV (80.0-100.0) fL MCH (25.0-34.0) pg MCHC (32.0-36.0) g/dL RDW Std Deviation (36.4-46.3) fL RDW Coeff of Zoë (11.5-14.5) % Plt Count (130-400) K/uL MPV (9.4-12.4) fL Immature Gran % (Auto) % Neut % (Auto) % Lymph % (Auto) % [place] % (Auto) % Eos % (Auto) % Baso % (Auto) % Neut # (Auto) (1.40-6.50) K/uL Lymph # (Auto) (1.2-3.4) K/uL [place] # (Auto) (0.11-0.59) K/uL Eos # (Auto) (0-0.50) K/uL Baso # (Auto) (0-0.2) K/uL Immature Gran # (Auto) (0.01-0.20) K/uL Polychromasia Echinocytes Acanthocytes (Spur) VBG pH (7.36-7.41) Sodium (136-145) mmol/L Potassium (3.5-5.1) mmol/L Chloride (98-107) mmol/L Carbon Dioxide (21-32) mmol/L Anion Gap (3-11) BUN (6-23) mg/dl Creatinine (0.6-1.4) mg/dl Est Cr Clr Drug Dosing ml/min Est GFR ( Amer) ml/min Est GFR (Non-Af Amer) ml/min BUN/Creatinine Ratio (10-20) Glucose (70-99(Fasting)) mg/dl Lactate 2.6 H* 2.7 H* (0.4-2.0) mmol/L Calcium (8.6-10.3) mg/dl Phosphorus (2.5-4.9) mg/dl Magnesium (1.7-2.4) mg/dl Total Bilirubin (0.2-1.0) mg/dl AST (13-39) U/L ALT (7-52) U/L Alkaline Phosphatase (34-104) U/L Total Protein (6.0-8.3) gm/dl Albumin (3.4-5.0) gm/dl Globulin (2.5-4.0) gm/dl Albumin/Globulin Ratio (0.9-2) Urine Color Urine Appearance (Clear) Urine pH (4.5-7.5) Ur Specific [place] (1.000-1.030) Urine Protein (Negative) Urine Glucose (UA) (Negative) Urine Ketones (Negative) Urine Blood (Negative) Urine Nitrite (Negative) Urine Bilirubin (Negative) Urine Urobilinogen (Negative) Ur Leukocyte Esterase (Negative) Urine WBC (Auto) (0-5) /hpf Urine RBC (Auto) (0-4) /hpf U Hyaline Cast (Auto) (0-5) /lpf U Epithel Cells (Auto) (0-5) /lpf Urine Bacteria (Auto) (Negative) Urine Yeast (None Prsent) Urine Osmolality 695 (500-800) mOsm/kg Ur Random Creatinine mg/dl Ur Random Sodium mmol/L Urine Opiates Screen (Neg) U Codeine Confrm GC/MS Ur Morphine (GC/MS) Ur Hydrocodone (GC/MS) Ur Norhydrocodone Ur Noroxycodone Urine Oxycodone (GC/MS) U Oxymorphone GC/MS Ur Methadone, Qual (Neg) Ur Hydromorphone (GC/MS) Urine Barbiturates (Neg) Ur Phencyclidine (PCP) (Neg) U Amphetamin/Meth Scrn (Neg) MDMA (Ecstasy) Screen (Neg) U Benzodiazepines Scrn (Neg) Ur Cocaine Metabolite (Neg) U Marijuana (THC) Screen (Neg) Drug Screen Comment 03/02/23 03/02/23 03/02/23 Range/Units 17:36 16:52 16:52 WBC 27.49 H (4.8-10.8) K/ul RBC 2.97 L (4.70-6.10) M/uL Hgb 9.9 L (14.0-18.0) g/dl Hct 30.4 L (42.0-52.0) % MCV 102.4 H (80.0-100.0) fL MCH 33.3 (25.0-34.0) pg MCHC 32.6 (32.0-36.0) g/dL RDW Std Deviation 55.2 H (36.4-46.3) fL RDW Coeff of Zoë 14.7 H (11.5-14.5) % Plt Count 211 (130-400) K/uL MPV 11.6 (9.4-12.4) fL Immature Gran % (Auto) 1.5 % Neut % (Auto) 88.9 % Lymph % (Auto) 2.4 % [place] % (Auto) 7.0 % Eos % (Auto) 0.0 % Baso % (Auto) 0.2 % Neut # (Auto) 24.46 H (1.40-6.50) K/uL Lymph # (Auto) 0.65 L (1.2-3.4) K/uL [place] # (Auto) 1.93 H (0.11-0.59) K/uL Eos # (Auto) 0.00 (0-0.50) K/uL Baso # (Auto) 0.05 (0-0.2) K/uL Immature Gran # (Auto) 0.40 H (0.01-0.20) K/uL Polychromasia Echinocytes 1+ Acanthocytes (Spur) VBG pH 7.33 L (7.36-7.41) Sodium 134 L (136-145) mmol/L Potassium 3.6 (3.5-5.1) mmol/L Chloride 105 (98-107) mmol/L Carbon Dioxide 19 L (21-32) mmol/L Anion Gap 10 (3-11) BUN 32 H (6-23) mg/dl Creatinine 2.22 H (0.6-1.4) mg/dl Est Cr Clr Drug Dosing 28.3 ml/min Est GFR ( Amer) 31.7 ml/min Est GFR (Non-Af Amer) 27.4 ml/min BUN/Creatinine Ratio 14.4 (10-20) Glucose 125 H (70-99(Fasting)) mg/dl Lactate (0.4-2.0) mmol/L Calcium 8.7 (8.6-10.3) mg/dl Phosphorus 3.1 (2.5-4.9) mg/dl Magnesium 2.3 (1.7-2.4) mg/dl Total Bilirubin (0.2-1.0) mg/dl AST (13-39) U/L ALT (7-52) U/L Alkaline Phosphatase (34-104) U/L Total Protein (6.0-8.3) gm/dl Albumin (3.4-5.0) gm/dl Globulin (2.5-4.0) gm/dl Albumin/Globulin Ratio (0.9-2) Urine Color Urine Appearance (Clear) Urine pH (4.5-7.5) Ur Specific [place] (1.000-1.030) Urine Protein (Negative) Urine Glucose (UA) (Negative) Urine Ketones (Negative) Urine Blood (Negative) Urine Nitrite (Negative) Urine Bilirubin (Negative) Urine Urobilinogen (Negative) Ur Leukocyte Esterase (Negative) Urine WBC (Auto) (0-5) /hpf Urine RBC (Auto) (0-4) /hpf U Hyaline Cast (Auto) (0-5) /lpf U Epithel Cells (Auto) (0-5) /lpf Urine Bacteria (Auto) (Negative) Urine Yeast (None Prsent) Urine Osmolality (500-800) mOsm/kg Ur Random Creatinine mg/dl Ur Random Sodium mmol/L Urine Opiates Screen (Neg) U Codeine Confrm GC/MS Ur Morphine (GC/MS) Ur Hydrocodone (GC/MS) Ur Norhydrocodone Ur Noroxycodone Urine Oxycodone (GC/MS) U Oxymorphone GC/MS Ur Methadone, Qual (Neg) Ur Hydromorphone (GC/MS) Urine Barbiturates (Neg) Ur Phencyclidine (PCP) (Neg) U Amphetamin/Meth Scrn (Neg) MDMA (Ecstasy) Screen (Neg) U Benzodiazepines Scrn (Neg) Ur Cocaine Metabolite (Neg) U Marijuana (THC) Screen (Neg) Drug Screen Comment Diagnostic Findings CT SCAN OF THE ABDOMEN AND PELVIS WITHOUT IV CONTRAST CLINICAL HISTORY: Leukocytosis. Encephalopathy. COMPARISON STUDY: Abdominal CT dated 02/26/2023. TECHNIQUE: CT scan of the abdomen and pelvis is performed from the lung bases to the proximal femora. Images are reviewed in the axial, sagittal, and coronal planes. IV contrast was not administered for this examination as per the referring clinician. Note that the examination was performed in suboptimal fashion without oral and IV contrast. There is also motion artifact, as well as significant streak artifact from the arms which could not be elevated above the abdomen and bilateral hip arthroplasties. A dose lowering technique was utilized adhering to the principles of ALARA. FINDINGS: Lung bases: The heart is enlarged and without pericardial effusion. The coronary arteries are densely calcified. There is a moderate hiatal hernia. There are trace pleural effusions with dependent atelectasis. Liver: The unenhanced liver is normal in size, contour, and attenuation. There is no intrahepatic biliary ductal dilatation. Gallbladder: The gallbladder is distended but otherwise normal in appearance. Spleen: Normal in size and attenuation. Pancreas: The unenhanced pancreas is atrophic and grossly unremarkable. Adrenal glands: Unremarkable. Kidneys: The unenhanced kidneys demonstrate cortical atrophy and are without hydronephrosis. There are no renal calculi identified. There is no evidence of contour deforming renal mass lesion. Peripherally calcified left renal artery aneurysms measure up to 10 mm. Abdominal vasculature: There is advanced atherosclerotic calcification of the abdominal aorta. There is a 3.8 x 3.5 cm (AP x transverse) infrarenal abdominal aortic aneurysm. There is ectasia of the common iliac arteries which measure up to 2.0 cm. An infrarenal IVC filter is in place. Bowel: There are scattered colonic diverticula without CT evidence of acute diverticulitis. No bowel obstruction is seen. There is residual enteric contrast in the rectosigmoid. The appendix is well-visualized and normal. There is wall thickening of the rectosigmoid with surrounding inflammation and presacral edema. Peritoneum: No intraperitoneal free air is identified. A small amount of free fluid is seen in the left paracolic gutter and anterior to the iliac bifurcation. There is laxity of the ventral pelvic wall with protrusion of abdominal contents. Lymphadenopathy: None. Pelvic viscera: Evaluation of the pelvis is significantly degraded by streak artifact from bilateral hip arthroplasties. The bladder is decompressed on a Harris catheter and could not be assessed. The prostate gland is not visualized due to extensive streak artifact. Skeletal structures: The skeletal structures are osteopenic. There is moderate to advanced lumbosacral spondylosis. A 4.3 cm benign-appearing expansile lucency is again seen in the left iliac wing. No destructive bony lesion is identified. Bilateral hip arthroplasties are in place. There is a subacute inferior endplate compression fracture of L2. IMPRESSION: 1. Suboptimal examination without and IV contrast. There is also significant streak and motion artifact. 2. There is wall thickening of the rectosigmoid with surrounding infiltration and presacral edema. This represents a change from 02/26/2023. Correlate clinically for evidence of a nonspecific proctocolitis. 3. There is a small amount of free fluid seen anterior to the iliac bifurcation and in the left paracolic gutter. This is likely reactive. 4. No intraperitoneal free air is identified and there is no evidence of organized fluid collection on this unenhanced examination. 5. Cardiomegaly and trace pleural effusions. 6. Hiatal hernia. 7. Again seen is a subacute-appearing inferior endplate compression fracture of L2. 8. Additional findings as above. (3) Abdominal pain Abdominal location: generalized Qualified Code(s): R10.84 - Generalized abdominal pain
[2023-03-03] MEDS: CEFEPIME 1,000 MG in SYRINGE 0 ML IV SCH (14:12)
--- NOTE | 2023-03-03 14:35 | Hospitalist Progress Note ---
Date of Service March 03, 2023 Assessment & Plan (1) Acute metabolic encephalopathy: (2) Acute hypernatremia: (3) Advanced dementia: (4) Agitation due to dementia: Plan: Acute metabolic encephalopathy likely secondary to hypernatremia in the setting of advanced dementia. As noted on previous reports her been multiple admissions in the last 2 months. He was recently discharged on comfort care measures with hospice on February 24. Hospice was revoked and he was brought back to the hospital with altered mental status. Just prior to discharge his sodium was 148 and 3 days later on admission it was 153. He is starting to improve with a return of his sodium into the normal range. Other contributing factors may be opiate use and a possible urinary tract infection. Blood cultures are negative and he remains afebrile. Abx restarted today (Rocephin/flagyl) given elevated WBC, worsening lactic acidosis, reports of abdominal pain and new findings of colitis on abdominal CT. Per general surgery who saw him 03/03, there is a TTP on the LLQ (my exam was consistent with this, also). Suspect ischemic colitis 2/2 severe dehydration vs nonspecific colitis. Will cont with conservative measures including IVF and IV abx. Of note, he has not been eating much at all in recent days. Will address goals for this with family regarding artificial feedings. (5) UTI (urinary tract infection): Plan: REcently treated for a UTI, however, he got worse clinically off the abx so this has been restarted wt rpeeat UA/UCx pending. (6) Hypoxia: Plan: Uncertain of actual needs. Trying weaning trial today. Lungs are clear on exam and imaging and has no oxygen needs at baseline. Acidosis treated overnight. (7) Colitis: Plan: Likely ischemic colitis in the setting of severe recent dehydration. Cont empiric abx and supportive care measures. Plan 2) Sepulveda's esophagus: Continue PPI, H2 sabi 3) CAD (coronary artery disease): chronic, stable. S/p PCI, stent, continue aspirin, Plavix, isosorbide, metoprolol succinate, atorvastatin 4) Hypertension: chronic, at goal. Continue metoprolol succinate 5) Chronic kidney disease: CKD III, Creatinine around baseline. Monitor renal functions, avoid nephrotoxic agents when possible 6) COPD (chronic obstructive pulmonary disease): chronic, at goal, History COPD/bronchiectasis . Continue home inhalers, Albuterol as needed 7) Chronic anemia: stable, no bleeding. Hemoglobin same as baseline. Monitor H&H 8) Hypothyroid: chronic, at goal. Continue levothyroxine 9) Gout: chronic, stable. 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 She wants him to be discharged there. PT/OT unable to evaluate him given persistent obtunded state. Case management on board to assist with transfer. I spoke with Nicole Lorenzo today and explained to her that he was still obtunded and not safe to feed. With ongoing NPO status, we need to make a decision on whether or not to artificially feed him. I explained that we can place a NG tube with transition to PEG vs go a palliative route. We discussed that during this hospitalization we have corrected his sodium, tried to correct a possible infection and rehydrate him with no improvement in mental status. She verbalized understanding and we will try to come to a decision tomorrow (sat). Ro Najera DO [facility] Hospitalist Admission and Anticipated Discharge Date Admission Date: February 27, 2023 Subjective 78-year-old man admitted for encephalopathy. No change in his activity today. He remains obtunded with minimal response to verbal or physical stimulation. Per nurse he has not eaten anything today and is a large aspiration risk. Continues to oxygenate 99% on 6 L/min Vitals are stable today and labwork has started to improve after IVF and antibiotics. Review of Systems Review of Systems: All systems reviewed negative except as indicated above. Physical Exam Physical Exam: CONSTITUTIONAL: WNWD, vitals as above, generally appears lethargic. EYES: pupils are round and equal bilaterally, normal conjunctivae, no scleral icterus ENT: external ear and nose normal, oropharynx clear, MMM NECK: trachea midline RESPIRATORY: clear to auscultation bilaterally, no crackles, rales or wheezes, normal respiratory effort CARDIOVASCULAR: regular rate and rhythm, S1 and 2 heard without murmurs, gallops or rubs, no JVD, no peripheral edema CHEST: inspection of chest was normal GASTROINTESTINAL: soft, nontender, ND, no guarding : Harris in place MUSCULOSKELETAL: unable to cooperate with exam given confusion, however, no gross focal deficits were noted. head is normocephalic and atraumatic, SKIN: warm and dry NEUROLOGIC: CN 2-12 grossly intact, lethargic, speech intact but not making sense, no tremor. PSYCHIATRIC: lethargic. Results & Data Results & Data Vital Signs (Past 12 Hours) Vital Signs Temp Pulse Pulse Resp BP Pulse Ox O2 Del Method 03/03/23 08:00 76 03/03/23 11:43 36.8 C 62 22 122/80 99 Nasal Cannula 03/03/23 07:17 36.9 C 82 20 116/68 97 Nasal Cannula 03/03/23 03:10 37.2 C 80 16 111/72 96 Nasal Cannula O2 Flow Rate 03/03/23 08:00 03/03/23 11:43 6 03/03/23 07:17 5 03/03/23 03:10 5 Laboratory Results Short CBC 03/02/23 03/03/23 Range/Units 16:52 04:43 WBC 27.49 H 20.30 H (4.8-10.8) K/ul Hgb 9.9 L 8.6 L (14.0-18.0) g/dl Hct 30.4 L 26.2 L (42.0-52.0) % Plt Count 211 181 (130-400) K/uL [facility] 03/02/23 03/03/23 16:52 04:43 Sodium 134 L 135 L Potassium 3.6 3.5 Chloride 105 108 H Carbon Dioxide 19 L 18 L BUN 32 H 34 H Creatinine 2.22 H 1.95 H Glucose 125 H 96 Calcium 8.7 8.4 L Liver Function 03/03/23 Range/Units 04:43 Total Bilirubin 0.7 (0.2-1.0) mg/dl AST 47 H (13-39) U/L ALT 31 (7-52) U/L Alkaline Phosphatase 71 (34-104) U/L Albumin 2.5 L (3.4-5.0) gm/dl Medications Administered Current Inpatient Medications Acetaminophen (Acetaminophen 325 Mg Tab) 650 mg PO Q6H PRN PRN Reason: TEMP/PAIN Stop: 03/29/23 04:37 Albuterol (Albut/Ipratrop 3mg/0.5mg Neb 3 Ml Vial) 3 ml NEB QIDR PRN; Protocol PRN Reason: Shortness Of Breath Or Wheezing Stop: 03/29/23 18:59 Allopurinol (Allopurinol 300 Mg Tab) 300 mg PO PM [facility] Stop: 03/29/23 20:59 Last Admin: 03/02/23 21:03 Dose: Not Given Famotidine (Famotidine 20 Mg Tab) 20 mg PO BID [facility] Stop: 03/29/23 08:59 Last Admin: 03/03/23 09:21 Dose: Not Given Heparin Sodium (Porcine) (Heparin Sod 5,000 Unit/0.5 Ml Vial) 5,000 units SQ Q8 [facility] Stop: 03/29/23 05:59 Last Admin: 03/03/23 14:12 Dose: 5,000 units Acetaminophen (Ofirmev) 1,000 mg in 100 mls @ 400 mls/hr IV Q8H [facility] Stop: 03/05/23 10:14 Last Infusion: 03/03/23 11:58 Dose: Infused Metronidazole (Flagyl) 500 mg in 100 mls @ 100 mls/hr IV Q8H [facility] Stop: 03/12/23 12:59 Last Admin: 03/03/23 14:12 Dose: 100 mls/hr Cefepime HCl 1,000 mg/ Syringe 10 mls @ 5 mls/min IV Q12H [facility]; Protocol Stop: 03/13/23 12:59 Last Admin: 03/03/23 14:12 Dose: 5 mls/min Potassium Chloride/Sodium Chloride (Normal Saline W/20 Meq Kcl) 20 meq in 1,000 mls @ 80 mls/hr IV .[id number]; Protocol Stop: 03/03/23 18:59 Last Admin: 03/03/23 06:44 Dose: 80 mls/hr Isosorbide Mononitrate (Isosorbide [place] Extended Rel 30 Mg Tabcr) 30 mg PO QAM [facility] Stop: 03/29/23 08:59 Last Admin: 03/03/23 09:21 Dose: Not Given Levothyroxine Sodium (Levothyroxine Sodium 75 Mcg Tablet) 75 mcg PO DAILYBB [facility] Stop: 03/29/23 06:29 Last Admin: 03/03/23 05:41 Dose: Not Given Metoprolol Succinate (Metoprolol Succ 25mg Ext Rel Tab) 25 mg PO BID [facility] Stop: 03/29/23 08:59 Last Admin: 03/03/23 09:21 Dose: Not Given Olanzapine (Olanzapine Zydis 5 Mg Orally Dis. Tab) 5 mg PO HS [facility] Stop: 03/29/23 20:59 Last Admin: 03/02/23 21:05 Dose: Not Given Oxybutynin Chloride (Oxybutynin Chloride 5 Mg Tab) 5 mg PO BID [facility] Stop: 03/29/23 08:59 Last Admin: 02/27/23 08:41 Dose: Not Given Pantoprazole Sodium (Pantoprazole 40 Mg Tab) 40 mg PO BID [facility] Stop: 03/29/23 08:59 Last Admin: 03/03/23 09:21 Dose: Not Given Quetiapine Fumarate (Quetiapine Fumarate 25 Mg Tablet) 25 mg PO BID [facility] Stop: 03/29/23 08:59 Last Admin: 02/27/23 08:41 Dose: Not Given Sodium Chloride (Sodium Chlor 7% 4 Ml Neb) 4 ml NEB BIDR PRN PRN Reason: Sputum induction Stop: 03/29/23 18:59
[2023-03-03] MEDS: allopurinoL 300 MG TAB PO SCH (20:17)
[2023-03-03] MEDS: OLANZapine ZYDIS 5 MG ORALLY DIS. TAB PO SCH (20:17)
[2023-03-04] MEDS: CEFEPIME 1,000 MG in SYRINGE 0 ML IV SCH ×2 (00:50→12:07)
[2023-03-04] MEDS: ACETAMINOPHEN 1,000 MG/100 ML VIAL IV SCH ×2 (02:26→12:06)
[2023-03-04] MEDS: HEPARIN SOD 5,000 UNIT/0.5 ML VIAL SQ SCH ×3 (05:19→21:32)
[2023-03-04] MEDS: metroNIDAZOLE 500 MG/100 ML BAG IV SCH ×3 (05:19→20:12)
[2023-03-04] MEDS: LEVOTHYROXINE SODIUM 75 MCG TABLET PO SCH (05:20)
[2023-03-04] MEDS ORDERED: OLANZapine 10 MG/2.1 ML SDV IM STA ×2 (06:23→23:34)
--- NOTE | 2023-03-04 06:30 | Surgery Progress Note ---
Date of Service March 04, 2023 Assessment & Plan (1) Colitis: Plan: Patient has been admitted on the hospitalist service. Is felt that patient has a nonspecific colitis or ischemic colitis secondary to severe dehydration Currently no need for surgical intervention. Continue to follow serial labs Continue antibiotics in the form of cefepime and Flagyl As noted by hospitalist, family will try to come to determination of how aggressive they would like patient's care to be as above. no surgical indications and pt is not an operative candidate regardless. will sign off. please call if we can be of any assistance Admission and Anticipated Discharge Date Admission Date: February 27, 2023 Subjective Patient is resting in bed. He has underlying dementia and therefore cannot provide any reliable subjective data. I discussed with the shift boss nurse and she notes that there have been no acute issues of concern specifically noting patient has not had any fevers or emesis. Physical Exam Gastrointestinal (Abdomen): Abdomen is soft and nondistended with positive bowel sounds. At the time of my exam palpation did not appear to exacerbate pain. Results & Data Vital Signs (Past 12 Hours) Vital Signs Temp Pulse Pulse Resp BP Pulse Ox O2 Del Method 03/04/23 02:29 36.6 C 86 20 120/88 97 Nasal Cannula 03/03/23 23:00 69 03/03/23 22:48 36.8 C 65 19 114/72 97 Nasal Cannula 03/03/23 19:07 Nasal Cannula 03/03/23 19:44 36.5 C 74 18 118/82 97 Nasal Cannula O2 Flow Rate 03/04/23 02:29 6 03/03/23 23:00 03/03/23 22:48 6 03/03/23 19:07 5 03/03/23 19:44 6 PG Care Time/CCT Total # of Minutes Spent Total Time Spent with Patient: Total time spent is greater than 50% in coordination of care (as documented) at patient's floor/unit and/or counseling patient: Coding Level of Care Code 63241 SUB INP/OBS CARE 10/26MIN Diagnoses Colitis K52.9
[2023-03-04 06:46] LABS: Hemoglobin 9.1 g/dl (14.0-18.0); Mean Corpuscular Hemoglobin 33.6 pg (25.0-34.0); Mean Corpuscular Hgb Conc 32.5 g/dL (32.0-36.0); Mean Corpuscular Volume 103.3 fL (80.0-100.0); Mean Platelet Volume 11.3 fL (9.4-12.4); Platelet Count 213 K/uL (130-400); RDW Coefficient of Variation 14.9 % (11.5-14.5); RDW Standard Deviation 56.4 fL (36.4-46.3); Red Blood Count 2.71 M/uL (4.70-6.10); White Blood Count 15.05 K/ul (4.8-10.8)
[2023-03-04 06:59] LABS: BUN Creatinine Ratio 21.7 (10-20); Calcium 8.8 mg/dl (8.6-10.3); Creatinine Clr Calc Pharmacy 37.9 ml/min; Est GFR (African American) 45.1 ml/min; Est GFR (Non-African American) 38.9 ml/min; Phosphorus 2.8 mg/dl (2.5-4.9); Potassium 3.7 mmol/L (3.5-5.1)
[2023-03-04] MEDS: FAMOTIDINE 20 MG TAB PO SCH (08:56)
[2023-03-04] MEDS: ISOSORBIDE MONO EXTENDED REL 30 MG TABCR PO SCH (08:56)
[2023-03-04] MEDS: METOPROLOL SUCC 25MG EXT REL TAB PO SCH (08:57)
[2023-03-04] MEDS: PANTOprazole 40 MG TAB PO SCH (08:57)
--- NOTE | 2023-03-04 10:06 | Hospitalist Progress Note ---
Date of Service March 04, 2023 Assessment & Plan (1) Acute metabolic encephalopathy: (2) Acute hypernatremia: (3) Advanced dementia: (4) Agitation due to dementia: Plan: Acute metabolic encephalopathy likely secondary to hypernatremia in the setting of advanced dementia. As noted on previous reports her been multiple admissions in the last 2 months. He was recently discharged on comfort care measures with hospice on February 24. Hospice was revoked and he was brought back to the hospital with altered mental status and hypernatremia. Just prior to discharge his sodium was 148 and 3 days later on admission it was 153. He is starting to improve with a return of his sodium into the normal range but remained lethargic. UTI was ruled out. Blood cultures are negative and he remains afebrile. His WBC jumped up and abx were expanded with workup revealing colitis on repeat CT a/p, likely ischemic colitis. Per general surgery who saw him 03/03, there is a TTP on the LLQ (my exam was consistent with this, also). Suspect ischemic colitis 2/2 severe dehydration vs nonspecific colitis. We are continuing with conservative measures including IVF and IV abx. Of note, he has not been eating much at all in recent days. Last oral intake was Mon. Addressed the issue of artificial feeding with the family who wants to try an NG tube now in hopes that he were more able to tolerate a diet in the next couple of days and be able to head to mcc care at [place]. He is already flipping his middle finger at his and is making gestures with his arms up in the air that suggests he wants to go (somewhere). It is very unlikely that he will tolerate the feeding tube. I discussed this with the RN and we decided that we will try this now and if he doesn't tolerate it, we can give him PPN temporarily starting tomorrow. Will also consult Palliative for assistance with goals of care and guiding the family on their options. (5) UTI (urinary tract infection): Plan: ruled out (6) Hypoxia: Plan: known mild emphysema and he is now starting to wak up and be more mobile so this may be able to be weaned more. Cont to trial wean. (7) Ischemic colitis: Plan: Likely ischemic colitis in the setting of severe recent dehydration. Cont empiric abx for about 7 days and supportive care measures. Plan 2) Sepulveda's esophagus: Continue PPI, H2 sabi 3) CAD (coronary artery disease): chronic, stable. S/p PCI, stent, continue aspirin, Plavix, isosorbide, metoprolol succinate, atorvastatin 4) Hypertension: chronic, at goal. Continue metoprolol succinate 5) Chronic kidney disease: CKD III, Creatinine around baseline. Monitor renal functions, avoid nephrotoxic agents when possible 6) COPD (chronic obstructive pulmonary disease): chronic, at goal, History COPD/bronchiectasis . Continue home inhalers, Albuterol as needed 7) Chronic anemia: stable, no bleeding. Hemoglobin same as baseline. Monitor H&H 8) Hypothyroid: chronic, at goal. Continue levothyroxine 9) Gout: chronic, stable. 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 She wants him to be discharged there. PT/OT unable to evaluate him given persistent obtunded state, but may be able to come in tomorrow or monday now that he is starting to wake up. Will reconsult them now. Case management on board to assist with transfer. I had a conversation with Nicole Lorenzo at bedside and his daughter who is an RN by phone. We all spoke together and reviewed conversation as outlined above. The goals are to get him to tolerate some kind of diet even with a permissive aspiration and get him to [place] for [facility] care. They feel he will be able to see a doctor twice per week and receive artificial hydration if the need arises. We decided to trial the NG tube now and go from there. I spent a total [id number] coordinating, documenting, and providing care for this patient excluding time spent in the performance of separately billed services Ro Najera DO [facility] and Anticipated Discharge Date Admission Date: February 27, 2023 Subjective 78-year-old man admitted for encephalopathy. Throughout the day he has become more more awake. I examined him earlier this morning and he was speaking in word salad but was able to say his name Moody He failed a swallow study performed this afternoon I spoke with his family at bedside including his stepmother and his daughter who was on speaker phone. We discussed artificial feeding and there wishes We discussed that he failed his swallow study and is considered a high aspiration risk during recent speech pathology evaluations They felt it was reasonable to trial an NG tube to see if he could tolerate this They also reported to me that feeding him with strict aspiration precautions was better for them then not feeding him at all so permissive aspiration was fine with them. His was asking if she could try feeding him even though he failed his swallow study just an hour ago. I asked her to check with the nurse and discouraged this. Overall they [facility] his daughter works. She confirmed that [place] will be able to rehydrate him when he has days where he does not tolerate much p.o. and becomes dehydrated. We discussed that the colitis is not likely infectious but more likely a result of severe dehydration. It appears the family would like him to be able to tolerate a pured diet with permissive aspiration and then head to [place] for long-term care. They are not interested in hospice at this point but since the daughter states that if he does not turn around in the next 2 to 3 weeks they would consider more of a palliative route at that time. Review of Systems Review of Systems: All systems reviewed negative except as indicated above. Physical Exam Physical Exam: CONSTITUTIONAL: WNWD, vitals as above, generally appears lethargic. EYES: pupils are round and equal bilaterally, normal conjunctivae, no scleral icterus ENT: external ear and nose normal, oropharynx clear, MMM NECK: trachea midline RESPIRATORY: clear to auscultation bilaterally, no crackles, rales or wheezes, normal respiratory effort CARDIOVASCULAR: regular rate and rhythm, S1 and 2 heard without murmurs, gallops or rubs, no JVD, no peripheral edema CHEST: inspection of chest was normal GASTROINTESTINAL: soft, nontender, ND, no guarding : Harris in place MUSCULOSKELETAL: unable to cooperate with exam given confusion, however, no gross focal deficits were noted. head is normocephalic and atraumatic, SKIN: warm and dry NEUROLOGIC: CN 2-12 grossly intact, lethargic, speech intact but not making sense, no tremor. PSYCHIATRIC: can wake up and orient to self Results & Data Results & Data Vital Signs (Past 12 Hours) Vital Signs Temp Pulse Pulse Resp BP Pulse Ox O2 Del Method 03/04/23 07:30 36.7 C 75 18 135/84 96 Nasal Cannula 03/04/23 02:29 36.6 C 86 20 120/88 97 Nasal Cannula 03/03/23 23:00 69 03/03/23 22:48 36.8 C 65 19 114/72 97 Nasal Cannula O2 Flow Rate 03/04/23 07:30 5 03/04/23 02:29 6 03/03/23 23:00 03/03/23 22:48 6 Laboratory Results Short CBC 03/04/23 Range/Units 06:19 WBC 15.05 H (4.8-10.8) K/ul Hgb 9.1 L (14.0-18.0) g/dl Hct 28.0 L (42.0-52.0) % Plt Count 213 (130-400) K/uL BMP 03/04/23 06:19 Sodium 139 Potassium 3.7 Chloride 111 H Carbon Dioxide 19 L BUN 36 H Creatinine 1.66 H Glucose 76 Calcium 8.8 Medications Administered Current Inpatient Medications Acetaminophen (Acetaminophen 325 Mg Tab) 650 mg PO Q6H PRN PRN Reason: TEMP/PAIN Stop: 03/29/23 04:37 Albuterol (Albut/Ipratrop 3mg/0.5mg Neb 3 Ml Vial) 3 ml NEB QIDR PRN; Protocol PRN Reason: Shortness Of Breath Or Wheezing Stop: 03/29/23 18:59 Allopurinol (Allopurinol 300 Mg Tab) 300 mg PO PM [facility] Stop: 03/29/23 20:59 Last Admin: 03/03/23 20:17 Dose: Not Given Famotidine (Famotidine 20 Mg Tab) 20 mg PO BID [facility] Stop: 03/29/23 08:59 Last Admin: 03/04/23 08:56 Dose: Not Given Heparin Sodium (Porcine) (Heparin Sod 5,000 Unit/0.5 Ml Vial) 5,000 units SQ Q8 [facility] Stop: 03/29/23 05:59 Last Admin: 03/04/23 05:19 Dose: 5,000 units Acetaminophen (Ofirmev) 1,000 mg in 100 mls @ 400 mls/hr IV Q8H [facility] Stop: 03/05/23 10:14 Last Infusion: 03/04/23 02:41 Dose: Infused Metronidazole (Flagyl) 500 mg in 100 mls @ 100 mls/hr IV Q8H [facility] Stop: 03/12/23 12:59 Last Admin: 03/04/23 05:19 Dose: 10 mls/hr Cefepime HCl 1,000 mg/ Syringe 10 mls @ 5 mls/min IV Q12H [facility]; Protocol Stop: 03/13/23 12:59 Last Admin: 03/04/23 00:50 Dose: 5 mls/min Isosorbide Mononitrate (Isosorbide [place] Extended Rel 30 Mg Tabcr) 30 mg PO QAM [facility] Stop: 03/29/23 08:59 Last Admin: 03/04/23 08:56 Dose: Not Given Levothyroxine Sodium (Levothyroxine Sodium 75 Mcg Tablet) 75 mcg PO DAILYBB [facility] Stop: 03/29/23 06:29 Last Admin: 03/04/23 05:20 Dose: Not Given Metoprolol Succinate (Metoprolol Succ 25mg Ext Rel Tab) 25 mg PO BID [facility] Stop: 03/29/23 08:59 Last Admin: 03/04/23 08:57 Dose: Not Given Olanzapine (Olanzapine Zydis 5 Mg Orally Dis. Tab) 5 mg PO HS [facility] Stop: 03/29/23 20:59 Last Admin: 03/03/23 20:17 Dose: Not Given Olanzapine (Olanzapine 10 Mg/2.1 Ml Sdv) 2.5 mg IM Q4H PRN PRN Reason: Anxiety/Agitation Stop: 04/03/23 06:22 Oxybutynin Chloride (Oxybutynin Chloride 5 Mg Tab) 5 mg PO BID [facility] Stop: 03/29/23 08:59 Last Admin: 02/27/23 08:41 Dose: Not Given Pantoprazole Sodium (Pantoprazole 40 Mg Tab) 40 mg PO BID [facility] Stop: 03/29/23 08:59 Last Admin: 03/04/23 08:57 Dose: Not Given Quetiapine Fumarate (Quetiapine Fumarate 25 Mg Tablet) 25 mg PO BID [facility] Stop: 03/29/23 08:59 Last Admin: 02/27/23 08:41 Dose: Not Given Sodium Chloride (Sodium Chlor 7% 4 Ml Neb) 4 ml NEB BIDR PRN PRN Reason: Sputum induction Stop: 03/29/23 18:59
[2023-03-04] MEDS ORDERED: ACETAMINOPHEN 1,000 MG/100 ML VIAL IV PRN (17:17)
[2023-03-04] MEDS: SODIUM CHLORIDE 0.9% 1000ML 1,000 ML IV SCH (18:05)
[2023-03-04] MEDS ORDERED: DEXTROSE 10% 1,000 ML IV PRN (18:15)
[2023-03-04] MEDS ORDERED: TPN/PPN CONSULT PHARMACY STA (18:15)
[2023-03-04] MEDS: OLANZapine 10 MG/2.1 ML SDV IM PRN (22:59)
[2023-03-05] MEDS ORDERED: OLANZapine 10 MG/2.1 ML SDV IM STA (00:10)
[2023-03-05] MEDS: CEFEPIME 1,000 MG in SYRINGE 0 ML IV SCH ×2 (01:27→13:35)
[2023-03-05] MEDS: HEPARIN SOD 5,000 UNIT/0.5 ML VIAL SQ SCH ×3 (05:03→20:46)
[2023-03-05] MEDS: metroNIDAZOLE 500 MG/100 ML BAG IV SCH ×3 (05:13→20:46)
[2023-03-05 05:42] LABS: BUN Creatinine Ratio 23.6 (10-20); Calcium 8.7 mg/dl (8.6-10.3); Est GFR (African American) 48.2 ml/min; Est GFR (Non-African American) 41.6 ml/min; Phosphorus 2.7 mg/dl (2.5-4.9); Potassium 3.7 mmol/L (3.5-5.1)
[2023-03-05 05:52] LABS: Hematocrit (blood only) 28.3 % (42.0-52.0); Hemoglobin 9.2 g/dl (14.0-18.0); Mean Corpuscular Hemoglobin 33.2 pg (25.0-34.0); Mean Corpuscular Hgb Conc 32.5 g/dL (32.0-36.0); Mean Corpuscular Volume 102.2 fL (80.0-100.0); Mean Platelet Volume 11.1 fL (9.4-12.4); Platelet Count 232 K/uL (130-400); RDW Coefficient of Variation 14.6 % (11.5-14.5); RDW Standard Deviation 55.6 fL (36.4-46.3); Red Blood Count 2.77 M/uL (4.70-6.10); White Blood Count 11.89 K/ul (4.8-10.8)
[2023-03-05] MEDS: SODIUM CHLORIDE 0.9% 1000ML 1,000 ML IV SCH (07:28)
[2023-03-05 08:18] LABS: Codeine Urine NEGATIVE ng/mL (<50); Hydrocodone Urine NEGATIVE ng/mL (<50); Hydromor Urine NEGATIVE ng/mL (<50); Morphine Urine 167 ng/mL (<50); Norhydrocodone Conf Ur NEGATIVE ng/mL (<50); Noroxycodone Urine NEGATIVE ng/mL (<50); Oxycodone Urine NEGATIVE ng/mL (<50); Oxymorph Urine NEGATIVE ng/mL (<50)
--- NOTE | 2023-03-05 09:57 | Pulmonary Consultation ---
Date of Consultation March 05, 2023 Assessment & Plan (1) COPD (chronic obstructive pulmonary disease): (2) Acute and chronic respiratory failure with hypoxia: Plan CT chest 03/02/2023 personally reviewed: Centrilobular emphysema appreciated bilaterally Dependent atelectasis bilateral lower lobes Hiatal hernia No mediastinal lymphadenopathy 2D echo 01/13/2023: EF 55-60%, moderate concentric LVH, mild AR, grade 1 diastolic dysfunction -- Acute on chronic hypoxic respiratory failure Etiology is most likely underlying central and possibly obstructive sleep apnea as See the chest does not show any clear signs of pneumonia COVID-19 NAAT negative --COPD with emphysema Mild I will start the patient on Brovana and budesonide nebulized --Dementia Care as per primary team Plan: Patient's underlying hypoxia is multifactorial He likely has central as well as obstructive sleep apnea. No signs of pneumonia or pulmonary emboli on the CT chest In a patient who has dementia would not recommend BiPAP as they will not be able to tolerate it well. Would recommend to continue giving oxygen to keep O2 saturation between 90-92% Unfortunately there is not much to offer from pulmonary perspective. Case was discussed with Dr. Najera No further recommendation from pulmonary perspective We will sign off, please call directly with any questions Please note the above document was generated using voice recognition software. It may contain grammatical, syntax or spelling errors.Any formal questions or concerns about the content, text or information contained within the body of this dictation should be directly addressed to the provider for clarification. History of Present Illness Attending Physician: Ro Najera, History of Present Illness 78-year-old male presented to the hospital with confusion Past medical history: COPD on home O2, coronary artery disease, peripheral vascular disease, hypertension, dyslipidemia, CKD, dementia Pulmonary consulted for hypoxia Patient is a poor historian, history obtained from previous chart At the time of examination patient was saturating 99% on 5 L nasal cannula. I went down to 3 L He was in restraints. He was sleeping. Not in any respiratory distress. Respiratory rate was in the mid teens. Unfortunately no history was able to be obtained from the patient. Abdomen was soft. Nontender Allergies Allergy/AdvReac Type Severity Reaction Status Date / Time benzocaine Allergy Severe SLOUGHING Verified 02/26/23 23:38 OF SKIN clindamycin Allergy Intermediate RASH Verified 02/26/23 23:38 clobetasol Allergy Intermediate ITCHING Verified 02/26/23 23:38 cyanocobalamin (vitamin B12) Allergy Intermediate Rash Verified 02/26/23 23:38 doxycycline Allergy Intermediate RASH Verified 02/26/23 23:38 Penicillins Allergy Intermediate HIVES Verified 02/26/23 23:38 phenethylamine Allergy Intermediate Itching Verified 02/26/23 23:38 povidone-iodine Allergy Intermediate Hives Verified 02/26/23 23:38 [From Betadine] soap [From Betadine] Allergy Intermediate Hives Verified 02/26/23 23:38 tea tree Allergy Intermediate ITCHING Verified 02/26/23 23:38 lorazepam [From Ativan] AdvReac Mild Confusion Verified 02/26/23 23:38 Home Medications Medication Instructions Recorded Confirmed Type docusate sodium 100 mg capsule 100 mg PO Q12H PRN Constipation 06/14/18 02/26/23 History famotidine 20 mg tablet 20 mg PO BID 06/14/18 02/26/23 History metoprolol succinate 25 mg 25 mg PO BID 06/14/18 02/26/23 History tablet,extended release 24 hr oxybutynin chloride 5 mg tablet 5 mg PO BID 06/14/18 02/26/23 History albuterol sulfate 2.5 mg/3 mL 2.5 mg inhalation Q6H PRN 01/07/19 02/26/23 History (0.083 %) solution for nebulization Shortness Of Breath isosorbide mononitrate 30 mg 30 mg PO QAM 01/28/20 02/26/23 History tablet,extended release 24 hr valacyclovir 500 mg tablet 500 mg PO BID PRN RECURRENT EPISODE 09/18/20 02/26/23 History levothyroxine 75 mcg tablet 75 mcg PO QAM 09/09/21 02/26/23 History (Synthroid) allopurinol 300 mg tablet 300 mg PO PM 12/04/22 02/26/23 History pantoprazole 40 mg tablet,delayed 40 mg PO BID #60 tabs 01/14/23 02/26/23 Rx release arformoterol 15 mcg/2 mL solution 2 ml inhalation BID 02/10/23 02/26/23 History for nebulization budesonide 0.5 mg/2 mL suspension 0.25 mg inhalation BID 02/10/23 02/26/23 H istory for nebulization calcium carbonate 200 mg calcium 400 mg PO BID PRN Acid Reflux 02/10/23 02/26/23 History (500 mg) chewable tablet (Tums) triamcinolone acetonide 0.1 % 1 applic topical BID PRN flare up 02/10/23 02/26/23 History topical cream haloperidol lactate 2 mg/mL oral 2 mg PO Q4H PRN agitation 30 days 02/25/23 02/26/23 Rx concentrate #15 mL quetiapine 25 mg tablet 25 mg PO BID 30 days #60 tabs 02/25/23 02/26/23 Rx acetaminophen 325 mg tablet 650 mg PO Q6H PRN TEMP/PAIN 02/26/23 02/26/23 History (Tylenol) morphine concentrate 100 mg/5 mL 5 mg PO Q3H PRN Pain 02/26/23 02/26/23 History (20 mg/mL) oral solution morphine concentrate 100 mg/5 mL 5 mg PO Q6H 02/26/23 02/26/23 History (20 mg/mL) oral solution olanzapine 5 mg disintegrating 5 mg PO HS 02/26/23 02/26/23 History tablet Patient History Medical History (Updated 03/05/23 @ 15:29 by Srini Glass MD, [facility]) Acute dehydration Advanced care planning/counseling discussion Agitation Agitation due to dementia HERNANDEZ (acute kidney injury) Altered mental status Anxiety Aortic aneurysm stable 3cm; pcp monitors Barretts esophagus Behavioural problem Blood clotting disorder pt unable to verify Chronic anemia Chronic back pain Chronic kidney disease, stage 3 COPD (chronic obstructive pulmonary disease) inhalers and nebulizers daily Coronary artery disease Dementia with behavioral disturbance Dementia without behavioral disturbance Diverticular disease Elevated lactic acid level Elevated troponin GERD (gastroesophageal reflux disease) Gout Cortez filter in place Hearing deficit Hyperlipidemia Hypertension Idiopathic neuropathy Myocardial Infarction 2016--follows with Dr. Casanova Need for comfort care Neuropathy Nocturnal hypoxemia On home oxygen therapy 2.5L N/C at HS Osteoarthritis Palliative care by specialist Jose Alejandro historian Prostate cancer sx Recurrent genital herpes simplex (Unknown) Sciatica Sleep apnea oxygen at night Temporomandibular joint disorder UTI (urinary tract infection) Surgical History History of arthroscopic knee surgery History of bilateral cataract extraction History of cardiac cath x5--last 2019 History of colonoscopy History of esophagogastroduodenoscopy (EGD) History of heart artery stent multiple--last 2019 11/03 to restenosis History of hernia repair epigastric History of left shoulder replacement History of lumbar surgery History of mandibular surgery tmj repair History of prostate biopsy malignant History of prostatectomy History of right inguinal hernia repair History of right shoulder replacement History of tooth extraction all teeth removed Status post correction of deviated nasal septum Status post total hip replacement, bilateral Family History Other Family history not known due to adoption Social History Smoking Status: Unknown if ever smoked Tobacco Type: Cigarettes Hx Alcohol Use: No Hx Substance Use: No Preferred Language: Namibian Communication Ability: Unable Communication Ability Comment: unable to assess Group Reservations Coordinator Required: No Beliefs That Will Affect Care: None marital status: Current Living Situation: Jail Current Living Situation Comment: lives with and son current occupational status: retired How many Children do You have: 4 Other Information That Helps Us Care for You: No Feels Safe at Home: Yes Safety Concerns: Feels Safe At This Time Assistive Devices: Cane and Wheelchair Review of Systems Review of Systems: Unobtainable due to cognitive status Physical Exam Physical Exam: Constitutional: No acute distress HEENT: EPERRLA Respiratory system: Fair air entry bilaterally, no wheeze, no rhonchi, mild crackles bilateral lower lobes CVS: S1-S2 positive, no murmurs or gallops Abdomen: Soft, nontender, nondistended, positive bowel sounds x4 Extremities: +2 pulses bilaterally radialis/ dorsalis pedis, no cyanosis, +2 right lower extremity edema Neuro: Sleeping Psych: Unable to assess G/U: Positive Harris Skin: no rashes, warm and dry Lymphatic: no cervical or axillary lymphadenopathy Results & Data Results & Data Vital Signs (Past 12 Hours) Vital Signs Temp Pulse Pulse Pulse Resp BP Pulse Ox 03/05/23 07:44 37.0 C 72 18 151/86 H 98 03/05/23 07:39 83 03/05/23 07:15 03/05/23 04:00 36.6 C 79 20 140/76 97 03/04/23 23:00 76 03/04/23 22:49 36.5 C 78 20 148/87 H 94 O2 Del Method O2 Flow Rate 03/05/23 07:44 Nasal Cannula 5 03/05/23 07:39 03/05/23 07:15 Nasal Cannula 5 03/05/23 04:00 Nasal Cannula 03/04/23 23:00 03/04/23 22:49 Nasal Cannula Laboratory Results 03/05/23 05:12 03/05/23 05:12 PG Care Time/CCT Total # of Minutes Spent Total Time Spent with Patient: Total time spent is greater than 50% in coordination of care (as documented) at patient's floor/unit and/or counseling patient: Coding Level of Care Code 66898 INT INP/OBS CARE 375MIN Diagnoses COPD (chronic obstructive pulmonary disease) J44.9 Acute and chronic respiratory failure with hypoxia J96.21
[2023-03-05] MEDS ORDERED: OPTIRAY 320 500ml IV ONE (10:16)
--- NOTE | 2023-03-05 10:39 | CT Scan Report ---
CT angio chest PE protocol CT DOSE: 936.05 mGy.cm HISTORY: 78 years-old Male with PE. Acute shortness of breath TECHNIQUE: Multiple CTA images of the chest were obtained after the intravenous administration of 110 ml Optiray. Coronal and sagittal MIPS were obtained from the axial data set and were submitted for review. All measurements were obtained according to NASCET criteria. A dose lowering technique was u tilized adhering to the principles of ALARA. COMPARISON: Chest CT 03/02/2023 FINDINGS: CTA: Moderate cardiomegaly. No pericardial effusion. Extensive coronary artery calcifications. Atheroscler osis of the aorta without aneurysm or dissection. Descending thoracic aortic tortuosity. Limited eval uation of the pulmonary arterial tree secondary to contrast bolus timing and respiratory motion artif act. No central pulmonary emboli identified. CT CHEST: No lymphadenopathy. No pneumothorax, pleural effusion, or overt pulmonary edema. Mild pulmonary emphy sema with subsegmental bibasilar atelectasis. Mild bronchial wall thickening with bibasilar predomina nt mucous plugging. Mid to distal esophageal wall thickening with small to moderate hiatal hernia. Un remarkable soft tissues. Bilateral shoulder arthroplasties. No acute fracture identified. IMPRESSION: 1. Limited exam as above. No central pulmonary emboli identified. 2. Emphysema with bronchitis and mild mucous plugging. 3. No airspace consolidation typical for pneumonia. 4. Esophageal wall thickening with small to moderate hiatal hernia. ACT 112: Negative or not required by law. The above report was generated using voice recognition software. It may contain grammatical, syntax o r spelling errors. Electronically signed by: Claudio Orourke M.D. 03/05/2023 10:37 AM
[2023-03-05] MEDS ORDERED: TPN/PPN CONSULT PHARMACY PRN (11:30)
[2023-03-05] MEDS ORDERED: CARBOHYDRATES FOR HYPOGLYCEMIA PO PRN (13:16)
[2023-03-05] MEDS ORDERED: DEXTROSE 50% 50 ML SYRINGE IV PRN (13:16)
[2023-03-05] MEDS ORDERED: GLUCAGON FOR INJ 1 MG VIAL SQ PRN (13:16)
[2023-03-05] MEDS ORDERED: GLUCOSE 40% GEL 15 GM TUBE PO PRN (13:16)
[2023-03-05] MEDS ORDERED: GLUCOSE 10 TAB/TUBE PO PRN (13:16)
--- NOTE | 2023-03-05 13:22 | Hospitalist Progress Note ---
Date of Service March 05, 2023 Assessment & Plan (1) Acute metabolic encephalopathy: (2) Acute hypernatremia: (3) Advanced dementia: (4) Agitation due to dementia: Plan: Acute metabolic encephalopathy initially likely secondary to hypernatremia in the setting of advanced dementia and severe dehydration. As noted on previous reports her been multiple admissions in the last 2 months. He was recently discharged on comfort care measures with hospice on February 24. Hospice was revoked and he was brought back to the hospital with altered mental status and hypernatremia. Just prior to discharge his sodium was 148 and 3 days later on admission it was 153. He is starting to improve with a return of his sodium into the normal range but remained lethargic. UTI was ruled out. Blood cultures are negative and he remains afebrile. His WBC jumped up and abx were expanded with workup revealing colitis on repeat CT a/p, likely ischemic colitis. Improved with cefepime/flagyl and rehydration efforts. (5) UTI (urinary tract infection): Plan: ruled out (6) Hypoxia: Plan: known mild emphysema along with possible central vs obstructive sleep apnea per pulmonology. No PE on CT today. BIPAP is not indicated. Nebs added per pulm with poor prognosis overall. (7) Ischemic colitis: Plan: Likely ischemic colitis in the setting of severe recent dehydration. Cont empiric abx for about 7 days and supportive care measures. Per general surgery who saw him /, there is a TTP on the LLQ (my exam was consistent with this, also). Suspect ischemic colitis 2/2 severe dehydration vs nonspecific colitis. We are continuing with conservative measures including IVF and IV abx. Of note, he has not been eating much at all in recent days. Last oral intake was Mon. Addressed the issue of artificial feeding with the family who wants to try an NG tube now in hopes that he were more able to tolerate a diet in the next couple of days and be able to head to [facility] care at [place]. He at one point was flipping his middle finger at his and is making gestures with his arms up in the air that suggests he wants to go (somewhere). reports he has a history of aggressiveness and he was noted in prior ER reports to be combative with staff. HE did not tolerate the NG tube attempt and ordered PPN in the meantime to give some calories while waiting for his mental status to improve enough to be able to tolerate food and progress to LTC facility. Today he was hypoglycemic just prior to PPN and was put on hypoglycemia protocol. Will need to re-engage with palliative to help family with goals of care as this clinical course progresses. (8) Hypoglycemia: Plan: on hypoglycemia protocol with BSG q6H Plan 2) Sepulveda's esophagus: Continue PPI, H2 sabi 3) CAD (coronary artery disease): chronic, stable. S/p PCI, stent, continue aspirin, Plavix, isosorbide, metoprolol succinate, atorvastatin 4) Hypertension: chronic, at goal. Continue metoprolol succinate 5) Chronic kidney disease: CKD III, Creatinine around baseline. Monitor renal functions, avoid nephrotoxic agents when possible 6) COPD (chronic obstructive pulmonary disease): chronic, at goal, History COPD/bronchiectasis . Continue home inhalers, Albuterol as needed 7) Chronic anemia: stable, no bleeding. Hemoglobin same as baseline. Monitor H&H 8) Hypothyroid: chronic, at goal. Continue levothyroxine 9) Gout: chronic, stable. Continue allopurinol 10) (paroxysmal atrial fibrillation): History paroxysmal atrial fibrillation versus SVT seen on prior radiation monitor, Continue metoprolol succinate DVT Prophylaxis heparin DNR/DNI Disposition;patient daughter is a RN works in the [facility] and rehab. She wants him to be discharged there. PT/OT unable to evaluate him given persistent obtunded state, but may be able to come in tomorrow or monday now that he is starting to wake up. Will reconsult them now. Case management on board to assist with transfer. I spent a total [id number] coordinating, documenting, and providing care for this patient excluding time spent in the performance of separately billed se rvjalil Najera DO [facility] Hospitalist Admission and Anticipated Discharge Date Admission Date: February 27, 2023 Subjective 78-year-old man admitted for encephalopathy. Today he remains confused and encephalopathic He is mumbling words but this is not clear communication He is in restraints and received Zyprexa overnight for significant agitation. Review of Systems Review of Systems: All systems reviewed negative except as indicated above. Physical Exam Physical Exam: CONSTITUTIONAL: WNWD, vitals as above, generally appears confused, NAD, in soft restraints. EYES: pupils are round and equal bilaterally, normal conjunctivae, no scleral icterus ENT: external ear and nose normal, oropharynx clear, MMM NECK: trachea midline RESPIRATORY: clear to auscultation bilaterally, no crackles, rales or wheezes, normal respiratory effort CARDIOVASCULAR: regular rate and rhythm, S1 and 2 heard without murmurs, gallops or rubs, no JVD, no peripheral edema CHEST: inspection of chest was normal GASTROINTESTINAL: soft, nontender, ND, no guarding : Harris in place MUSCULOSKELETAL: unable to cooperate with exam given confusion, however, no gross focal deficits were noted. head is normocephalic and atraumatic, SKIN: warm and dry NEUROLOGIC: CN 2-12 grossly intact, lethargic, speech intact but not making sense, no tremor. PSYCHIATRIC: alert, disoriented and cannot say his name today, inattentive, not able to focus on me with his eyes when prompted. Results & Data Results & Data Vital Signs (Past 12 Hours) Vital Signs Temp Pulse Pulse Pulse Resp BP Pulse Ox 03/05/23 11:59 36.7 C 85 18 141/75 H 96 03/05/23 07:44 37.0 C 72 18 151/86 H 98 03/05/23 07:39 83 03/05/23 07:15 03/05/23 04:00 36.6 C 79 20 140/76 97 O2 Del Method O2 Flow Rate 03/05/23 11:59 Nasal Cannula 5 03/05/23 07:44 Nasal Cannula 5 03/05/23 07:39 03/05/23 07:15 Nasal Cannula 5 03/05/23 04:00 Nasal Cannula Laboratory Results Short CBC 03/05/23 Range/Units 05:12 WBC 11.89 H (4.8-10.8) K/ul Hgb 9.2 L (14.0-18.0) g/dl Hct 28.3 L (42.0-52.0) % Plt Count 232 (130-400) K/uL BMP 03/05/23 05:12 Sodium 142 Potassium 3.7 Chloride 114 H Carbon Dioxide 18 L BUN 37 H Creatinine 1.57 H Glucose 69 L Calcium 8.7 Diagnostic Findings Chest CTA 03/05/23 09:44 CT angio chest PE protocol CT DOSE: 936.05 mGy.cm HISTORY: 78 years-old Male with PE. Acute shortness of breath TECHNIQUE: Multiple CTA images of the chest were obtained after the intravenous administration of 110 ml Optiray. Coronal and sagittal MIPS were obtained from the axial data set and were submitted for review. All measurements were obtained according to NASCET criteria. A dose lowering technique was utilized adhering to the principles of ALARA. COMPARISON: Chest CT 03/02/2023 FINDINGS: CTA: Moderate cardiomegaly. No pericardial effusion. Extensive coronary artery calcifications. Atherosclerosis of the aorta without aneurysm or dissection. Descending thoracic aortic tortuosity. Limited evaluation of the pulmonary arterial tree secondary to contrast bolus timing and respiratory motion artifact. No central pulmonary emboli identified. CT CHEST: No lymphadenopathy. No pneumothorax, pleural effusion, or overt pulmonary edema. Mild pulmonary emphysema with subsegmental bibasilar atelectasis. Mild bronchial wall thickening with bibasilar predominant mucous plugging. Mid to distal esophageal wall thickening with small to moderate hiatal hernia. Unremarkable soft tissues. Bilateral shoulder arthroplasties. No acute fracture identified. IMPRESSION: 1. Limited exam as above. No central pulmonary emboli identified. 2. Emphysema with bronchitis and mild mucous plugging. 3. No airspace consolidation typical for pneumonia. 4. Esophageal wall thickening with small to moderate hiatal hernia. ACT 112: Negative or not required by law. The above report was generated using voice recognition software. It may contain grammatical, syntax or spelling errors. Electronically signed by: Claudio Orourke M.D. 03/05/2023 10:37 AM Medications Administered Current Inpatient Medications Albuterol (Albut/Ipratrop 3mg/0.5mg Neb 3 Ml Vial) 3 ml NEB QIDR PRN; Protocol PRN Reason: Shortness Of Breath Or Wheezing Stop: 03/29/23 18:59 Allopurinol (Allopurinol 300 Mg Tab) 300 mg PO PM MANDY Stop: 03/29/23 20:59 Last Admin: 03/03/23 20:17 Dose: Not Given Dextrose (Dextrose 50% 50 Ml Syringe) 25 - 50 ml IV UD PRN; Protocol PRN Reason: Hypoglycemia Protocol Stop: 04/04/23 13:15 Famotidine (Famotidine 20 Mg Tab) 20 mg PO BID MANDY Stop: 03/29/23 08:59 Last Admin: 03/04/23 08:56 Dose: Not Given Glucagon (Glucagon For Inj 1 Mg Vial) 1 mg SQ UD PRN; Protocol PRN Reason: Hypoglycemia Protocol Stop: 04/04/23 13:15 Glucose (Glucose 10 Tab/Tube) 4 - 8 tab PO UD PRN; Protocol PRN Reason: Hypoglycemia Treatment Stop: 04/04/23 13:15 Glucose (Glucose 40% Gel 15 Gm Tube) 15 - 30 gm PO UD PRN; Protocol PRN Reason: Hypoglycemia Protocol Stop: 04/04/23 13:15 Heparin Sodium (Porcine) (Heparin Sod 5,000 Unit/0.5 Ml Vial) 5,000 units SQ Q8 MANDY Stop: 03/29/23 05:59 Last Admin: 03/05/23 05:03 Dose: 5,000 units Metronidazole (Flagyl) 500 mg in 100 mls @ 100 mls/hr IV Q8H MANDY Stop: 03/12/23 12:59 Last Infusion: 03/05/23 06:13 Dose: Infused Cefepime HCl 1,000 mg/ Syringe 10 mls @ 5 mls/min IV Q12H MANDY; Protocol Stop: 03/13/23 12:59 Last Admin: 03/05/23 01:27 Dose: 5 mls/min Sodium Chloride (Nss 1000ml) 1,000 mls @ 80 mls/hr IV .[id number] MANDY Stop: 03/05/23 18:29 Last Admin: 03/05/23 07:28 Dose: 80 mls/hr Dextrose (D10w) 1,000 mls @ 0 mls/hr IV .Q0M PRN PRN Reason: protocol (see label comments) Stop: 04/03/23 18:14 Fat Emulsion-[place] Oil/Soybean Oil (Clinolipid 20% Iv Fat Emulsion) 250 mls @ 41.667 mls/hr IV .Q6H MANDY Stop: 03/05/23 21:59 Amino Acids 1,839 ml/ (Nutrition (Parenteral)) 1,839 mls @ 76.6 mls/hr IV .Q24H MANDY; Protocol Stop: 03/06/23 15:59 Isosorbide Mononitrate (Isosorbide [place] Extended Rel 30 Mg Tabcr) 30 mg PO QAM MANDY Stop: 03/29/23 08:59 Last Admin: 03/04/23 08:56 Dose: Not Given Levothyroxine Sodium (Levothyroxine Sodium 75 Mcg Tablet) 75 mcg PO DAILYBB [facility] Stop: 03/29/23 06:29 Last Admin: 03/04/23 05:20 Dose: Not Given Metoprolol Succinate (Metoprolol Succ 25mg Ext Rel Tab) 25 mg PO BID [facility] Stop: 03/29/23 08:59 Last Admin: 03/04/23 08:57 Dose: Not Given Miscellaneous (Stop Clinolipid) 1 each N/A TODAY@22 [facility] Stop: 03/05/23 22:01 Miscellaneous (Carbohydrates For Hypoglycemia ) 15 - 30 gm PO UD PRN PRN Reason: Hypoglycemia Protocol Stop: 04/04/23 13:15 Miscellaneous Information (Tpn/Ppn Consult Pharmacy) 1 each N/A UD PRN PRN Reason: Consult Stop: 04/04/23 11:29 Olanzapine (Olanzapine Zydis 5 Mg Orally Dis. Tab) 5 mg PO HS [facility] Stop: 03/29/23 20:59 Last Admin: 03/03/23 20:17 Dose: Not Given Olanzapine (Olanzapine 10 Mg/2.1 Ml Sdv) 2.5 mg IM Q4H PRN PRN Reason: Anxiety/Agitation Stop: 04/03/23 06:22 Last Admin: 03/04/23 22:59 Dose: 2.5 mg Oxybutynin Chloride (Oxybutynin Chloride 5 Mg Tab) 5 mg PO BID [facility] Stop: 03/29/23 08:59 Last Admin: 02/27/23 08:41 Dose: Not Given Pantoprazole Sodium (Pantoprazole 40 Mg Tab) 40 mg PO BID [facility] Stop: 03/29/23 08:59 Last Admin: 03/04/23 08:57 Dose: Not Given Quetiapine Fumarate (Quetiapine Fumarate 25 Mg Tablet) 25 mg PO BID [facility] Stop: 03/29/23 08:59 Last Admin: 02/27/23 08:41 Dose: Not Given
--- NOTE | 2023-03-05 15:42 | Pharmacy Report ---
Pharmacy PN Initial Consult - Date of Service March 05, 2023 - Scope Pharmacy has been consulted to manage parenteral nutrition orders and order appropriate labs. As part of the Nutrition Support Team guidelines, pharmacy will work in conjunction with dietary when determining the patients caloric needs. - Subjective The patient is a 78 year old M admitted on 02/27/23 03:55 for ENECEPHALOPATHY. Patient is to receive parenteral nutrition for NPO, failed NGT and swallow study. PPN ordered for few days till hopefully patient is more alert and able to swallow. Pertinent PMH: - Objective Height: 5 ft 10 in Weight: 79.2 kg Diet: NPO Vascular Access:: Peripheral Intake & Output (Last 24Hrs): Intake & Output 03/03/23 03/04/23 03/05/23 03/06/23 06:59 06:59 06:59 06:59 Intake Total 3470 / 3470 2500 / 2600 1500 / 1500 200 / 200 Output Total 411 / 411 632 / 632 728 / 728 275 / 275 Balance 3059 / 3059 1868 / 1968 772 / 772 -75 / -75 Weight 87.5 kg 79.1 kg 79.2 kg 79.2 kg Laboratory Data (Last 24 Hrs):: 03/05/23 05:12 Sodium 142 Potassium 3.7 Chloride 114 H Carbon Dioxide 18 L BUN 37 H Creatinine 1.57 H Glucose 69 L Calcium 8.7 Phosphorus 2.7 Magnesium 2.0 Triglycerides 104 Nutrition Assessment:: Please refer to the Notes section of the EMR for the most recent dice person note. - Plan For day 1 of PN administration, the following will be ordered: Macronutrients Amino acids 77 grams/day Dextrose 90 grams/day Lipids 50 grams/day Micronutrients Combined electrolytes [ ] mL - contains 35 mEq Na, 20 meq K, 4.5 mEq Ca, 5 mEq Mg, 35 mEq Cl, 29.5 mEq acetate per 20 mL Sodium phosphate 21 MMol Sodium chloride [] mEq Sodium acetate 20 mEq Potassium phosphate [] mMol Potassium chloride [] mEq Potassium acetate 20 mEq Magnesium sulfate [] mEq Calcium gluconate [] mEq Multivitamins 10 mL Trace Elements 1 mL Additional additives: Thiamine 100 mg Total volume 1839 mL to be infused over 24 hrs will provide 1112 kcal/day Final osmolarity 731 mOsm/L (maximum for PPN is 900 mOsm/L) Labs to be ordered per PN order protocol Pharmacy will follow and adjust parenteral nutrition orders on a daily basis. Thank you.
[2023-03-05] MEDS ORDERED: CLINOLIPID 20% IV FAT EMULSION 250 ML IV SCH (16:00)
[2023-03-05] MEDS ORDERED: PERIPHERAL TPN IV SCH (16:00)
[2023-03-05] MEDS ORDERED: [UNRECOGNIZED DRUG - OTHER] IV SCH (16:00)
[2023-03-05] MEDS: FORMOTEROL 20 MCG/2 ML VIAL NEB SCH (20:12)
[2023-03-05] MEDS: BUDESONIDE 0.5 MG/2 ML VIAL (PULMICORT) NEB SCH (20:12)
[2023-03-05] MEDS ORDERED: STOP CLINOLIPID SCH (22:00)
[2023-03-06] MEDS: CEFEPIME 1,000 MG in SYRINGE 0 ML IV SCH ×2 (00:09→12:42)
[2023-03-06] MEDS: OLANZapine 10 MG/2.1 ML SDV IM PRN ×2 (02:15→22:22)
[2023-03-06 05:24] LABS: BUN Creatinine Ratio 22.6 (10-20); Calcium 8.4 mg/dl (8.6-10.3); Creatinine Clr Calc Pharmacy 47.3 ml/min; Est GFR (African American) 58.9 ml/min; Est GFR (Non-African American) 50.8 ml/min; Magnesium 1.7 mg/dl (1.7-2.4); Phosphorus 2.6 mg/dl (2.5-4.9); Potassium 3.5 mmol/L (3.5-5.1)
[2023-03-06] MEDS: metroNIDAZOLE 500 MG/100 ML BAG IV SCH ×3 (05:34→20:19)
[2023-03-06] MEDS: HEPARIN SOD 5,000 UNIT/0.5 ML VIAL SQ SCH ×3 (05:35→22:22)
[2023-03-06] MEDS: BUDESONIDE 0.5 MG/2 ML VIAL (PULMICORT) NEB SCH ×2 (07:34→19:44)
[2023-03-06] MEDS: FORMOTEROL 20 MCG/2 ML VIAL NEB SCH ×2 (07:34→19:44)
--- NOTE | 2023-03-06 07:55 | Hospitalist Progress Note ---
Date of Service March 06, 2023 Assessment & Plan (1) Acute metabolic encephalopathy: (2) Acute hypernatremia: (3) Advanced dementia: (4) Agitation due to dementia: Plan: Acute metabolic encephalopathy initially likely secondary to hypernatremia in the setting of advanced dementia and severe dehydration. As noted on previous reports her been multiple admissions in the last 2 months. He was recently discharged on comfort care measures with hospice on February 24. Hospice was revoked and he was brought back to the hospital with altered mental status and hypernatremia. Just prior to discharge his sodium was 148 and 3 days later on admission it was 153. He is starting to improve with a return of his sodium into the normal range but remained lethargic. UTI was ruled out. Blood cultures are negative and he remains afebrile. His WBC jumped up and abx were expanded with workup revealing colitis on repeat CT a/p, likely ischemic colitis. Improved with cefepime/flagyl and rehydration efforts. Will cont for 5-7 days. (5) UTI (urinary tract infection): Plan: ruled out (6) Hypoxia: Plan: known mild emphysema along with possible central vs obstructive sleep apnea per pulmonology. No PE on CT chest. BIPAP is not indicated. Nebs added per pulm with poor prognosis overall. Cont nebulizers (7) Ischemic colitis: Plan: Likely ischemic colitis in the setting of severe recent dehydration. Cont empiric abx for about 7 days and supportive care measures. Per general surgery who saw him /, there is a TTP on the LLQ (my exam was consistent with this, also). Suspect ischemic colitis 2/2 severe dehydration vs nonspecific colitis. We are continuing with conservative measures including IVF and IV abx. Of note, he has not been eating much at all in recent days. Last oral intake was Mon. Addressed the issue of artificial feeding with the family who wants to try an NG tube now in hopes that he were more able to tolerate a diet in the next couple of days and be able to head to rn long term care care at [facility]. He at one point was flipping his middle finger at his and is making gestures with his arms up in the air that suggests he wants to go (somewhere). reports he has a history of aggressiveness and he was noted in prior ER reports to be combative with staff. He did not tolerate the NG tube attempt and ordered PPN in the meantime to give some calories while waiting for his mental status to improve enough to be able to tolerate food and progress to LTC facility. Today he was hypoglycemic just prior to PPN and was put on hypoglycemia protocol. Will need to re-engage with palliative to help family with goals of care as this clinical course progresses. (8) Hypoglycemia: Plan: on hypoglycemia protocol with BSG q6H Plan 2) Sepulveda's esophagus: Continue PPI, H2 sabi 3) CAD (coronary artery disease): chronic, stable. S/p PCI, stent, continue aspirin, Plavix, isosorbide, metoprolol succinate, atorvastatin 4) Hypertension: chronic, at goal. Continue metoprolol succinate 5) Chronic kidney disease: CKD III, Creatinine around baseline. Monitor renal functions, avoid nephrotoxic agents when possible 6) COPD (chronic obstructive pulmonary disease): chronic, at goal, History COPD/bronchiectasis . Continue home inhalers, Albuterol as needed 7) Chronic anemia: stable, no bleeding. Hemoglobin same as baseline. Monitor H&H 8) Hypothyroid: chronic, at goal. Continue levothyroxine 9) Gout: chronic, stable. Continue allopurinol 10) (paroxysmal atrial fibrillation): History paroxysmal atrial fibrillation versus SVT seen on prior property assessment monitor, Continue metoprolol succinate DVT Prophylaxis heparin DNR/DNI Disposition;patient daughter is a RN works in the [facility] [employer] [facility] and rehab. She wants him to be discharged there. PT/OT unable to evaluate him given persistent obtunded state, but may be able to come in tomorrow or monday now that he is starting to wake up. Will reconsult them now. Case management on board to assist with transfer. I spent a total [id number] coordinating, documenting, and providing care for this patient excluding time spent in the performance of separately billed services Ro Najera [facility] and [facility]tic[facility]ated Discharge Date Admission Date: February 27, 2023 Subjective 78-year-old man admitted for encephalopathy. Today he remains confused and encephalopathic He is mumbling words but this is not clear communication He is in restraints and received Zyprexa overnight for significant agitation. Review of Systems Review of Systems: All systems reviewed negative except as indicated above. Physical Exam Physical Exam: CONSTITUTIONAL: WNWD, vitals as above, generally appears confused, NAD, in soft restraints. Not currently combative EYES: pupils are round and equal bilaterally, normal conjunctivae, no scleral icterus ENT: external ear and nose normal, oropharynx clear, MMM NECK: trachea midline RESPIRATORY: clear to auscultation bilaterally, no crackles, rales or wheezes, normal respiratory effort CARDIOVASCULAR: regular rate and rhythm, S1 and 2 heard without murmurs, gallops or rubs, no JVD, no peripheral edema CHEST: inspection of chest was normal GASTROINTESTINAL: soft, nontender, ND, no guarding : Harris in place MUSCULOSKELETAL: unable to cooperate with exam given confusion, however, no gross focal deficits were noted. head is normocephalic and atraumatic, SKIN: warm and dry NEUROLOGIC: CN 2-12 grossly intact, lethargic, speech intact but not making sense-word salad, no tremor. Two point soft restraints in place on upper extremities PSYCHIATRIC: alert, disoriented and cannot say his name today, inattentive, not able to focus on me with his eyes when prompted. Results & Data Results & Data Vital Signs (Past 12 Hours) Vital Signs Temp Pulse Pulse Resp BP BP Pulse Ox 03/06/23 07:34 63 18 97 03/06/23 03:41 136/65 03/06/23 03:30 37.0 C 85 20 177/96 H 98 03/05/23 23:00 73 03/06/23 00:19 36.3 C L 72 20 132/86 98 03/05/23 20:46 03/05/23 20:22 18 94 O2 Del Method O2 Flow Rate 03/06/23 07:34 Nasal Cannula 2 03/06/23 03:41 03/06/23 03:30 Nasal Cannula 2.0 03/05/23 23:00 03/06/23 00:19 Nasal Cannula 2.0 03/05/23 20:46 Nasal Cannula 2 03/05/23 20:22 Nasal Cannula 2 Laboratory Results BMP 03/06/23 04:31 Sodium 141 Potassium 3.5 Chloride 113 H Carbon Dioxide 18 L BUN 30 H Creatinine 1.33 Glucose 101 H Calcium 8.4 L Medications Administered Current Inpatient Medications Albuterol (Albut/Ipratrop 3mg/0.5mg Neb 3 Ml Vial) 3 ml NEB QIDR PRN; Protocol PRN Reason: Shortness Of Breath Or Wheezing Stop: 03/29/23 18:59 Allopurinol (Allopurinol 300 Mg Tab) 300 mg PO PM MANDY Stop: 03/29/23 20:59 Last Admin: 03/03/23 20:17 Dose: Not Given Budesonide (Budesonide 0.5 Mg/2 Ml Vial (Pulmicort)) 0.5 mg NEB BIDR MANDY Stop: 04/04/23 18:59 Last Admin: 03/06/23 07:34 Dose: 0.5 mg Dextrose (Dextrose 50% 50 Ml Syringe) 25 - 50 ml IV UD PRN; Protocol PRN Reason: Hypoglycemia Protocol Stop: 04/04/23 13:15 Famotidine (Famotidine 20 Mg Tab) 20 mg PO BID MANDY Stop: 03/29/23 08:59 Last Admin: 03/04/23 08:56 Dose: Not Given Formoterol Fumarate (Formoterol 20 Mcg/2 Ml Vial) 20 mcg NEB BIDR MANDY Stop: 04/04/23 18:59 Last Admin: 03/06/23 07:34 Dose: 20 mcg Glucagon (Glucagon For Inj 1 Mg Vial) 1 mg SQ UD PRN; Protocol PRN Reason: Hypoglycemia Protocol Stop: 04/04/23 13:15 Glucose (Glucose 10 Tab/Tube) 4 - 8 tab PO UD PRN; Protocol PRN Reason: Hypoglycemia Treatment Stop: 04/04/23 13:15 Glucose (Glucose 40% Gel 15 Gm Tube) 15 - 30 gm PO UD PRN; Protocol PRN Reason: Hypoglycemia Protocol Stop: 04/04/23 13:15 Heparin Sodium (Porcine) (Heparin Sod 5,000 Unit/0.5 Ml Vial) 5,000 units SQ Q8 MANDY Stop: 03/29/23 05:59 Last Admin: 03/06/23 05:35 Dose: 5,000 units Metronidazole (Flagyl) 500 mg in 100 mls @ 100 mls/hr IV Q8H MANDY Stop: 03/12/23 12:59 Last Infusion: 03/06/23 06:34 Dose: Infused Cefepime HCl 1,000 mg/ Syringe 10 mls @ 5 mls/min IV Q12H MANDY; Protocol Stop: 03/13/23 12:59 Last Admin: 03/06/23 00:09 Dose: 5 mls/min Dextrose (D10w) 1,000 mls @ 0 mls/hr IV .Q0M PRN PRN Reason: protocol (see label comments) Stop: 04/03/23 18:14 Amino Acids 1,839 ml/ (Nutrition (Parenteral)) 1,839 mls @ 76.6 mls/hr IV .Q24H [facility]; Protocol Stop: 03/06/23 15:59 Last Admin: 03/05/23 17:16 Dose: 76.6 mls/hr Isosorbide Mononitrate (Isosorbide [place] Extended Rel 30 Mg Tabcr) 30 mg PO QAM [facility] Stop: 03/29/23 08:59 Last Admin: 03/04/23 08:56 Dose: Not Given Levothyroxine Sodium (Levothyroxine Sodium 75 Mcg Tablet) 75 mcg PO DAILYBB [facility] Stop: 03/29/23 06:29 Last Admin: 03/04/23 05:20 Dose: Not Given Metoprolol Succinate (Metoprolol Succ 25mg Ext Rel Tab) 25 mg PO BID [facility] Stop: 03/29/23 08:59 Last Admin: 03/04/23 08:57 Dose: Not Given Miscellaneous (Carbohydrates For Hypoglycemia ) 15 - 30 gm PO UD PRN PRN Reason: Hypoglycemia Protocol Stop: 04/04/23 13:15 Miscellaneous Information (Tpn/Ppn Consult Pharmacy) 1 each N/A UD PRN PRN Reason: Consult Stop: 04/04/23 11:29 Olanzapine (Olanzapine Zydis 5 Mg Orally Dis. Tab) 5 mg PO HS [facility] Stop: 03/29/23 20:59 Last Admin: 03/03/23 20:17 Dose: Not Given Olanzapine (Olanzapine 10 Mg/2.1 Ml Sdv) 2.5 mg IM Q4H PRN PRN Reason: Anxiety/Agitation Stop: 04/03/23 06:22 Last Admin: 03/06/23 02:15 Dose: 2.5 mg Oxybutynin Chloride (Oxybutynin Chloride 5 Mg Tab) 5 mg PO BID [facility] Stop: 03/29/23 08:59 Last Admin: 02/27/23 08:41 Dose: Not Given Pantoprazole Sodium (Pantoprazole 40 Mg Tab) 40 mg PO BID [facility] Stop: 03/29/23 08:59 Last Admin: 03/04/23 08:57 Dose: Not Given Quetiapine Fumarate (Quetiapine Fumarate 25 Mg Tablet) 25 mg PO BID [facility] Stop: 03/29/23 08:59 Last Admin: 02/27/23 08:41 Dose: Not Given
--- NOTE | 2023-03-06 09:55 | Communication Note ---
Date of Service: March 06, 2023 0953 Palliative Med Brief Note I was asked by Dr Najera to re engage and assist with clarifying GOC I called pt , Nicole, at home this morning at 0949. We agreed to a family meeting this afternoon at 1pm. I have notified primary team and CM. Thank you for allowing us to participate in the ongoing care of this patient. Please don't hesitate to call or page with any additional concerns. Dr. Adela Colon DNP Director, Palliative Care
--- NOTE | 2023-03-06 10:04 | Palliative Care Progress Note ---
Date of Service March 06, 2023 Assessment & Plan (1) Palliative care by specialist: Plan: Met with pt family. Provided overview of Palliative Medicine, a subspecialty that provides specialized medical care for people living with a serious illness by offering a focus on quality of life. Palliative Medicine is often conflated with hospice: I advised patient/family that Palliative and hospice can be partners but we are not the same. It is important to understand the difference so that we may be informed, and not afraid. Palliative Medicine works to improve QOL through reduction of symptom burden/more control over their illness, for both the patient and family. Palliative medicine clinicians are board certified, specially-trained and another member of the patient's medical care team. We often provide an extra layer of support because our care is based on the needs of the patient, not the prognosis; as such, it's appropriate at any age/advancing stage of a serious illness and can be provided along with curative treatment. Palliative Medicine clinicians are also trained in advanced communication methodologies, to facilitate complex discussions about advanced illness planning, which are needed to help assure that the treatment choices match the patient's goals, aka delivering Goal Concordant care. Finally, we discussed that hospice is a visiting nurse service that focuses on care delivered at the very end of life for patients with terminal illness, with life expectancy less than 6 month. (2) Advanced care planning/counseling discussion: Plan: A 60min face to face ACP meeting was held with pt Nicole and son Dora along with his daughter Anabela on phone, we met in conf room #8 from 1p-2p. We reviewed that all chronic/progressive disease has a declining trajectory over time where facets of patient self-identity and independence are lost. Every acute event leads to a further decline, resulting- many times, in a new baseline. Advised that the greatest priority is to determine what matters most to pt, then family and to develop a plan of care that is aligned with those priorities. Advance illness planning conversations are conducted to review goals and expectations, support shared decision-making, and engage in disease specific advance care planning. This type of advance care planning is sometimes referred to as 'preparedness planning. It is used to review the risks and benefits of offered therapy, elicit and deepen understanding of the underlying illness and therapeutic options, ensure adequate psychosocial support, address existential concerns and coping, and engage in end-of-life planning. Preparedness planning is not meant to replace informed consent discussions. Palliative medicine plays a role in the process of deepening a patients understanding of this specific medical intervention and ensuring this treatment aligns with their goals of care remains a central tenet of the planning conversation. Anabela Rivera and Nick were given opportunity to express their concerns and understanding of pt current condition. Anabela would like a shift to comfort with hospice, allow permissive aspiration, no further invasive treatments. Nicole leaning towards being in complete agreement but Nick feels this is александр to "letting him by dehydration." Nick expressed desire for ongoing IV hydration but was in agreement with family pt would not want PEG although Nick feels "if PEG would keep pt around few more years then it should be done." Advised family that Multiple organizations, including the [place] [employer] and the [place] [employer], have released statements endorsing the following approach to nutritional support in advanced dementia: Dont recommend percutaneous feeding tubes in patients with advanced dementia; instead, offer oral assisted feeding. Also noted for family that artificial nutrition and hydration (ERLINDA) were originally developed to provide short-term support for patients who were acutely ill. For patients nearing/transitioning to EOL, ERLINDA is unlikely to prolong life in addition to which researchers have found that ERLINDA often leads to c omplications in patients nearing the end of life. Patients with advanced, life- limiting illness often lose the ability to eat and drink and/or interest in food and fluids. Like other medical interventions, it should be evaluated by weighing its benefits and burdens in light of the patient's clinical circumstances and goals of care. ERLINDA may offer benefits when administered in the setting of acute, reversible illness, or as a component of chronic disease management, when the patient can appreciate the benefits of the treatment and significant burdens are not disproportionate. Near the end of life, some widely assumed benefits of ERLINDA, such as alleviation of thirst, may be achieved by less invasive measures including good mouth care or providing ice chips. (Mart SANTACRUZ, Tara CLARK, Micheal Way. after PEG: Results of the National Confidential Enquiry into Patient Outcome and . Gastrointest Endosc. 2008;68:223- 227andEloy E, Bharti D, Mechelle S, et al. Parenteral hydration in patients with advanced cancer: A multicenter, double-blind, placebo-controlled randomized trial. J Clin Oncol. 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 He was a strong force of nature both phycically and emtionally, they all indicate he was the true strength of their family. They agree he would not want to be kept alive in a dependent manner, without all his mental faculties and just languishing away. He also has such behav issues with adv dementia that he is unlikely to keep PEG in and we reviewed he cannot be restrained ATC physically or mentally. We reviewed the following facts about dementia: * Dementia is a terminal illness. Aggressive medical treatment for residents with advanced dementia is often inappropriate for medical reasons, has a low rate of success, and can have negative outcomes that hasten functional decline and . ([place] [employer] Ethics Committee and Clinical Practice and Models of Care Committee. J Am Geriatr Soc. 2014 Aug;62(8):1590-3 and Jos SL, Doug JM, Manuel SC, Mor V. A national study of the location of for older persons with dementia. J Am Geriatr Soc 2005; 53(2):299-305 .) * Tube feeding in residents with advanced dementia does not increase survival. It does not prevent aspiration pneumonia, malnutrition or pressure ulcers. It does not reduce the risk of infections or improve functional status or comfort of the patient. (from: Danny REBOLLEDO, Tonio T Percutaneous endoscopic gastrostomy does not prolong survival in patients with dementia. Arch [employer] Supervisor Med 2003; 163(11):2435-9392 AND Latha DE, Sukhdeep MARLO, Beny J, Arleen S, Bhanu RS. High short-term mortality in hospitalized patients with advanced dementia - Lack of benefit of tube feeding. Arch [employer] Supervisor Med 2001; 161(4):594-599.) * Simple strategies involving hands-on care by well-trained staff such as massage, oral hygiene, changes in diet, and hand-feeding -- can prevent infection and manage feeding problems without resort to tube-feeding. * Tube feeding does not prevent aspiration pneumonia and might actually increase its incidence, and does not prevent the consequences of malnutrition * Hand feeding can be provided until the beginning of the dying process when all physiological processes shut down, note that cognitively intact cancer patients indicate that dying residents do not feel hunger and thirst. * Voluntary refusal of food and liquids is often initiated by hospice patients and does not result in discomfort * The majority of older Americans whose underlying cause of is attributable to dementia on their certificate in nursing homes. State-level factors, including the availability of hospital and chcf beds and the age of decedents in the population, explain, in part, the wide [id number] variability in the proportion of dementia-related deaths occurring in the hospital. * Older adults with dementia frequently receive acute care in their last year of life although Hospice care was more common for home/ZOË residents. Overall time in hospice remains short due to the underutilization of the hospice benefit for terminal dementia (Karolyn MM, Obey JM, Celeste KM, George DE, Sulma PY. Dementia Care in the Last Year of Life: Experiences in a Community Practice and in Nursing Home Facilities. J Palliat Care. 202;38(2):135-142. doi:10.1177/[id number]) * Home Hospice is a valuable option for terminal dementia who desire to have peaceful EOL at home. Home hospice care for advanced dementia can improve symptom management and caregiver satisfaction, while decreasing caregiver burden, preventing hospitalizations and discontinuing unnecessary medications (Janeth TEIXEIRA, Coco R, Ernie G, et al. Home hospice for older people with advanced dementia: a bar pilot project [published correction appears in Isr J Health Policy Res. 2019 Apr 01;8(1):56]. Isr J Health Policy Res. 2019;8(1):42. Published 2018February 04. doi:10.1186/s17742-608-3707-v) (3) Advanced dementia: (4) Acute and chronic respiratory failure with hypoxia: (5) Ischemic colitis: Plan * After prolonged discussion and review of the type of life patient lived/what matters to him/what he would want for himself, family were all in agreement for a plan of care that focused on comfort/QOL, allow permissive aspiration with PO as tolerated for comfort and pleasure. NO PEG * They want him to be at SNF where daughter works. notes this will be 2 hr away from her home but ultimately closer to their family and friends. Dtr would like hospice added to his care and notes [facility]. I reviewed that Hospice is a valuable service for persons with advanced dementia, particularly in management of pain, continuous involvement of the primary physician, and avoidance of hospitalization. Social support provided to caregivers is also important given their high levels of depressive symptoms and anxiety. * I reviewed that the goal of care for residents with advanced dementia is primarily maintenance of function and patient should not be transferred to an acute care setting because hospitalization results in decline of functional abilities that do not recover after discharge back into chcf. * Family in agreement, Care Mgt follow up for hospice at SNF/deferred to . * I have updated primary team. * Comfort Care Discharge Summary & Plan of Care Comfort plan of care agreed upon by: , dtr and son Discussed with Patient/Family on: 03/06/23 Copy of this plan has been given to: will be provided to SNF where dtr is a nursing aircraft maintenance supervisor Comfort plan of care parameters: 1. Patient and family would like hospice added to their care. 2. NO rehab/PT/OT 3. Strictly End of Life care only 4. No escalation of care: do not increase oxygen, escalate therapies, etc. The focus is on comfort through end of life, assure this is accomplished with aggressive symptom management (i.e. relief of dyspnea, pain, etc.) 5. NO return to hospital 6. No labs 7. No imaging 8. No surgery 9. PO as tolerated for comfort and pleasure/no dietary restriction 10. Continue Harris catheter for comfort/hygiene/skin protection 11. If difficulty urinating/commode/bedpan, ok to place Harris catheter for comfort/hygiene/skin protection 12. No calorie counts 13. No artificial nutrition or hydration 14. No feeding tubes 15. No IVs Medications to continue: see dc summary Provider to contact if any questions about comfort plan of care: hospice director medical science Thank you for allowing us to participate in the ongoing care of this patient. Please don't hesitate to call or page with any additional concerns. Dr. Adela Colon DNP Director, Palliative Care Admission and Anticipated Discharge Date Admission Date: February 27, 2023 Subjective Pall Med re engagement requested by primary team due to pt decline and need to further clarify goals of care from medical reality vs family perspectiv es/expectations. pt remains +AMS, adv dementia, at times combative and uncooperative with staff has intermittently needed restraints peripheral hydration through weekend without improvement he pulled out his ngt PO intake mixed - some times will take more than others while sometimes also refusing Review of Systems Review of Systems: Unobtainable due to cognitive status Physical Exam Physical Exam: Elderly male, Lying in bed, restless. Bed linens in disarray. Patient will open eyes and occasionally turn head to verbal stimulus but is unable to answer questions or follow commands. There is mild bitemporal wasting. His pupils are equal, round and reactive to light. Pharynx appears dry but he does not allow a detailed examination. Neck is supple/no gross stridor or high-pitched wheezing. Limited anterior chest exam reveals diffuse coarse scattered rhonchi. No obvious wheezing. No increased respiratory distress or use of accessory muscles. S1S2/irreg irreg. Abdomen is distended. Bowel sounds are present. There is muscle wasting and atrophy noted in bilateral upper and lower extremities. There is + vascular insufficiency changes to BLE. Skin is pale, + pallor, + warm to touch. Confused at baseline. Unable to follow commands. Does not answer any questions. Results & Data Vital Signs (Past 12 Hours) Vital Signs Temp Pulse Pulse Resp BP BP BP 03/06/23 08:27 36.6 C 76 17 154/85 H 03/06/23 07:34 63 18 03/06/23 03:41 136/65 03/06/23 03:30 37.0 C 85 20 177/96 H 03/05/23 23:00 73 03/06/23 00:19 36.3 C L 72 20 132/86 Pulse Ox O2 Del Method O2 Flow Rate 03/06/23 08:27 96 Room Air 03/06/23 07:34 97 Nasal Cannula 2 03/06/23 03:41 03/06/23 03:30 98 Nasal Cannula 2.0 03/05/23 23:00 03/06/23 00:19 98 Nasal Cannula 2.0 Laboratory Results reviewed Diagnostic Findings reviewed PG Care Time/CCT Total # of Minutes Spent Total Time Spent: 120 Total Time Spent with Patient: Total time spent is greater than 50% in coordination of care (as documented) at patient's floor/unit and/or counseling patient: I spent 120 minutes overall addressing this case: 15 in medical data review/discussion with referring provider(s) and/or preparation for the visit 15 in direct interaction with the patient 60 Advance Care Planning/Goals of Care discussions as detailed above in note (must be >16min) 15 in subsequent review and synthesis of assessment and plan 15 in communicating with other providers regarding the patient's case: [] Prolonged Care Time Prolonged Care Time: Yes Advanced Care Planning 50730 Advanced Care Planning 30 Min 29843 Advanced Care Planning Additional 30 Min [place] [address] SUB INP/OBS CARE 3/50MIN Patient Type Established History Comprehensive Exam Comprehensive Medical Decision Making High Complexity Diagnoses Palliative care by specialist Z51.5 Advanced care planning/counseling discussion Z71.89 Advanced dementia F03.C0 Acute and chronic respiratory failure with hypoxia J96.21 Ischemic colitis K55.9 Additional Codes Advanced Care Planning - 95340 Advanced Care Planning 30 Min: 60750 Advanced Care Planning 30 Min ([id number]) Advanced Care Planning - 86462 Advanced Care Planning Additional 30 Min: 11610 Advanced Care Planning Additional 30 Min ([id number]) Prolonged Care Time - Prolonged Care Time: Yes ([id number])
[2023-03-06] MEDS ORDERED: CLINOLIPID 20% IV FAT EMULSION 250 ML IV SCH (16:00)
[2023-03-06] MEDS ORDERED: [UNRECOGNIZED DRUG - OTHER] IV SCH (16:00)
[2023-03-06] MEDS ORDERED: PERIPHERAL TPN IV SCH (16:00)
[2023-03-06] MEDS ORDERED: STOP CLINOLIPID SCH (22:00)
[2023-03-07] MEDS: CEFEPIME 1,000 MG in SYRINGE 0 ML IV SCH (00:39)
[2023-03-07] MEDS: metroNIDAZOLE 500 MG/100 ML BAG IV SCH (05:20)
[2023-03-07] MEDS: HEPARIN SOD 5,000 UNIT/0.5 ML VIAL SQ SCH (05:20)
[2023-03-07] MEDS: BUDESONIDE 0.5 MG/2 ML VIAL (PULMICORT) NEB SCH (06:57)
[2023-03-07] MEDS: FORMOTEROL 20 MCG/2 ML VIAL NEB SCH (06:57)
[2023-03-07 09:22] LABS: Calcium 8.1 mg/dl (8.6-10.3); Creatinine Clr Calc Pharmacy 60.4 ml/min; Est GFR (African American) 79.3 ml/min; Est GFR (Non-African American) 68.4 ml/min; Magnesium 1.4 mg/dl (1.7-2.4); Phosphorus 1.8 mg/dl (2.5-4.9); Potassium 3.3 mmol/L (3.5-5.1)
--- NOTE | 2023-03-07 09:44 | Discharge Summary ---
Discharge Summary Date of Service March 07, 2023 Admission HPI Per Admitting Provider This is a 78yo M with a PMH of CAD s/p PCI, stent, HTN, COPD, bronchiectasis, CKD III-IV, GERD, Sepulveda's esophagus, neuropathy, dementia, SVT versus paroxysmal atrial fibrillation, RBBB, and other medical problems who returns to ED due to medication non-compliance and family's inability to continue caring for patient at home. Patient was discharged home yesterday and other recommended for placement, patient elected to bring patient home to care for him there. Was discharged home on cefdinir 300 mg p.o. twice daily for 2 additional days to complete UTI treatment course. During previous admission, had some somnolence that was thought to be secondary to Seroquel dose, which was decreased to 12.5 p.o. twice daily. History obtained from and son at bedside. Since discharge home, patient has remained lethargic and has been refusing to eat, drink or take medications. They have had significant difficulty moving him and he grimaces in pain although unable to elicit much meaningful history from him due to dementia. States he has had chronic abdominal pain prior to admission. They do not feel they can care for him anymore. He has been screaming, swinging and spitting on staff in the ED. Was given IM Zyprexa 5 mg x 1 and is now resting peacefully. ROS unobtainable due to reduced consciousness. Principal Dx & Hospital Course #1 = Principal Diagnosis (1) Acute metabolic encephalopathy: (2) Acute hypernatremia: (3) Advanced dementia: (4) Agitation due to dementia: Acute metabolic encephalopathy initially likely secondary to hypernatremia in the setting of advanced dementia and severe dehydration. As noted on previous reports her been multiple admissions in the last 2 months. He was recently discharged on comfort care measures with hospice on February 24. Hospice was revoked and he was brought back to the hospital with altered mental status and hypernatremia. Just prior to discharge his sodium was 148 and 3 days later on admission it was 153. He is starting to improve with a return of his sodium into the normal range but remained lethargic. UTI was ruled out. Blood cultures are negative and he remains afebrile. His WBC jumped up and abx were expanded with workup revealing colitis on repeat CT a/p, likely ischemic colitis. Improved with cefepime/flagyl and rehydration efforts. (5) UTI (urinary tract infection): ruled out (6) Hypoxia: known mild emphysema along with possible central vs obstructive sleep apnea per pulmonology. No PE on CT chest. BIPAP is not indicated. Nebs added per pulm with poor prognosis overall. (7) Ischemic colitis: Likely ischemic colitis in the setting of severe recent dehydration. Cont empiric abx for about 7 days and supportive care measures. Per general surgery who saw him 03/03, there is a TTP on the LLQ (my exam was consistent with this, also). Suspect ischemic colitis 2/2 severe dehydration vs nonspecific colitis. We are continuing with conservative measures including IVF and IV abx. Of note, he has not been eating much at all in recent days. Last oral intake was Mon. 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 He at one point was flipping his middle finger at his and is making gestures with his arms up in the air that suggests he wants to go (somewhere). reports he has a history of aggressiveness and he was noted in prior ER reports to be combative with staff. He did not tolerate the NG tube attempt and ordered PPN in the meantime to give some calories while waiting for his mental status to improve enough to be able to tolerate food and progress to LTC facility. Today he was hypoglycemic just prior to PPN and was put on hypoglycemia protocol. Will need to re-engage with palliative to help family with goals of care as this clinical course progresses. (8) Hypoglycemia: on hypoglycemia protocol with BSG q6H Plan 2) Sepulveda's esophagus: Continue PPI, H2 sabi 3) CAD (coronary artery disease): chronic, stable. S/p PCI, stent, continue aspirin, Plavix, isosorbide, metoprolol succinate, atorvastatin 4) Hypertension: chronic, at goal. Continue metoprolol succinate 5) Chronic kidney disease: CKD III, Creatinine around baseline. Monitor renal functions, avoid nephrotoxic agents when possible 6) COPD (chronic obstructive pulmonary disease): chronic, at goal, History COPD/bronchiectasis . Continue home inhalers, Albuterol as needed 7) Chronic anemia: stable, no bleeding. Hemoglobin same as baseline. Monitor H&H 8) Hypothyroid: chronic, at goal. Continue levothyroxine 9) Gout: chronic, stable. Continue allopurinol 10) (paroxysmal atrial fibrillation): History paroxysmal atrial fibrillation versus SVT seen on prior lunchroom monitor, Continue metoprolol succinate DVT Prophylaxis heparin DNR/DNI Disposition;patient daughter is a RN works in the [facility] and rehab. She wants him to be discharged there. PT/OT unable to evaluate him given persistent obtunded state, but may be able to come in tomorrow or monday now that he is starting to wake up. Will reconsult them now. Case management on board to assist with transfer. I spent a total [id number] coordinating, documenting, and providing care for this patient excluding time spent in the performance of separately billed services Ro Najera DO [facility] Hospitalist Discharge Exam CONSTITUTIONAL: WNWD, vitals as above, generally appears confused, NAD, in soft restraints. Not currently combative EYES: pupils are round and equal bilaterally, normal conjunctivae, no scleral icterus ENT: external ear and nose normal, oropharynx clear, MMM NECK: trachea midline RESPIRATORY: clear to auscultation bilaterally, no crackles, rales or wheezes, normal respiratory effort CARDIOVASCULAR: regular rate and rhythm, S1 and 2 heard without murmurs, gallops or rubs, no JVD, no peripheral edema CHEST: inspection of chest was normal GASTROINTESTINAL: soft, nontender, ND, no guarding : Harris in place MUSCULOSKELETAL: unable to cooperate with exam given confusion, however, no gross focal deficits were noted. head is normocephalic and atraumatic, SKIN: warm and dry NEUROLOGIC: CN 2-12 grossly intact, lethargic, speech intact but not making sense-word salad, no tremor. Two point soft restraints in place on upper extremities PSYCHIATRIC: alert, disoriented and cannot say his name today, inattentive, not able to focus on me with his eyes when prompted. Updated Medication List Medication Instructions Recorded Confirmed Type docusate sodium 100 mg capsule 100 mg PO Q12H PRN Constipation 06/14/18 02/26/23 History famotidine 20 mg tablet 20 mg PO BID 06/14/18 02/26/23 History metoprolol succinate 25 mg 25 mg PO BID 06/14/18 02/26/23 History tablet,extended release 24 hr oxybutynin chloride 5 mg tablet 5 mg PO BID 06/14/18 02/26/23 History albuterol sulfate 2.5 mg/3 mL 2.5 mg inhalation Q6H PRN 01/07/19 02/26/23 History (0.083 %) solution for nebulization Shortness Of Breath isosorbide mononitrate 30 mg 30 mg PO QAM 01/28/20 02/26/23 History tablet,extended release 24 hr valacyclovir 500 mg tablet 500 mg PO BID PRN RECURRENT EPISODE 09/18/20 02/26/23 History levothyroxine 75 mcg tablet 75 mcg PO QAM 09/09/21 02/26/23 History (Synthroid) allopurinol 300 mg tablet 300 mg PO PM 12/04/22 02/26/23 History pantoprazole 40 mg tablet,delayed 40 mg PO BID #60 tabs 01/14/23 02/26/23 Rx release arformoterol 15 mcg/2 mL solution 2 ml inhalation BID 02/10/23 02/26/23 History for nebulization budesonide 0.5 mg/2 mL suspension 0.25 mg inhalation BID 02/10/23 02/26/23 History for nebulization calcium carbonate 200 mg calcium 400 mg PO BID PRN Acid Reflux 02/10/23 02/26/23 History (500 mg) chewable tablet (Tums) triamcinolone acetonide 0.1 % 1 applic topical BID PRN flare up 02/10/23 02/26/23 History topical cream haloperidol lactate 2 mg/mL oral 2 mg PO Q4H PRN agitation 30 days 02/25/23 02/26/23 Rx concentrate #15 mL quetiapine 25 mg tablet 25 mg PO BID 30 days #60 tabs 02/25/23 02/26/23 Rx acetaminophen 325 mg tablet 650 mg PO Q6H PRN TEMP/PAIN 02/26/23 02/26/23 History (Tylenol) morphine concentrate 100 mg/5 mL 5 mg PO Q3H PRN Pain 02/26/23 02/26/23 History (20 mg/mL) oral solution morphine concentrate 100 mg/5 mL 5 mg PO Q6H 02/26/23 02/26/23 History (20 mg/mL) oral solution olanzapine 5 mg disintegrating 5 mg PO HS 02/26/23 02/26/23 History tablet Hospital Stay Data Consultations 02/27/23 01:26 ED Decision to Admit Stat 02/27/23 06:48 Consult Palliative Care Routine 03/02/23 21:34 Consult General Surgery Routine 03/04/23 18:16 Consult Palliative Care Routine 03/05/23 09:44 Consult Pulmonology Routine Diagnostic Imagining Performed 02/26/23 21:58 CT abd pelvis wo con Stat CT head/brain wo con Stat 03/02/23 10:12 CT abd pelvis wo con Routine CT chest diagnostic wo con Routine 03/02/23 10:40 CT head/brain wo con Routine 03/05/23 09:44 CT angio chest PE protocol Routine Pending Results Patient Have Any Pending Studies at Discharge: No Discharge Instructions Given to Patient (Per Discharging Provider) Please take all medications as instructed on medication list below. Given the consistent failure of swallow studies here in the hospital, and the elevated aspiration risk, please consider tapering off some of his less urgent oral medications. Please continue to stay hydrated as much as able. You are being sent to the facility with Hospice support who will be able to provide additional medications for comfort as needed for pain, anxiety, etc. It was a pleasure taking care of you! Please call if you have any questions or problems. You can reach a [facility] hospitalist on duty at [facility] 24 hours a day by calling [phone]. Take care of yourself. Ro Najera, [facility]
== END 2023-03-07 13:15 | DRG 70 ==
LOC: ED 21:45 → 4W 02-27 03:55 → SUATTDRO 02-27 03:55 → 4W 02-27 04:18 → 3W 03-06 23:33